=== PATIENT | female | born 1935 | race Caucasian/White ===

== ENCOUNTER 2016-08-02 15:06 | Inpatient (IN) | payer MEDICARE, OTHER ==
[~2016-08-02] VITALS: Ht 157.5 cm; Wt 77.7 kg
[~2016-08-02 15:06] MED LIST: ACTO35TA PO; CARV40 PO; CLON.1 PO; CLOP75 PO; ECOT81TA2 PO; EZET10 PO; FERR324T4 PO; FOLI1TAB PO; IRBE1TAB39 PO; LEVIMER SC; LEVO.05 PO; OXYC-360 PO; RALO1TAB13 PO; ROSU10 PO; TEKT300T PO; TOLT4 PO; VITA400C28 PO
[2016-08-02 15:14] VITALS: BP 158/65; PULSE 57; RESP 16; TEMP 98.2; O2SAT 98
[2016-08-02 15:21] VITALS: O2SAT 98
[2016-08-02 16:02] LABS: AUTOMATED NEUTROPHIL # 5.4 TH/MM3 (1.8-7.7); BASOPHIL % 0.4 % (0.0-2.0); EOSINOPHIL # 0.2 TH/MM3 (0-0.4); HEMO FLAGS DIFF FINAL; LYMPH % 19.1 % (9.0-44.0); LYMPHOCYTE # 1.4 TH/MM3 (1.0-4.8); MEAN CORPUSCULAR HEMOGLOBIN 30.1 PG (27.0-34.0); MEAN CORPUSCULAR HGB CONC 34.2 % (32.0-36.0); MONO % 6.2 % (0.0-8.0); NEUT % 72.3 % (16.0-70.0); PLATELET COUNT 188 TH/MM3 (150-450); RED BLOOD COUNT 3.86 MIL/MM3 (4.00-5.30); RED CELL DISTRIBUTION WIDTH 14.3 % (11.6-17.2); WHITE BLOOD COUNT 7.5 TH/MM3 (4.0-11.0)
[2016-08-02 16:05] LABS: BACTERIA, URINE MANY /hpf; BLOOD, URINE MOD (NEG); GLUCOSE,URINE NEG (NEG); KETONE, URINE NEG (NEG); MUCUS URINE FEW /lpf (OCC); PH, URINE 6.5 (5.0-8.5); SQUAMOUS EPITHELIAL CELL URINE 1 /hpf (0-5); URINE COLOR YELLOW (YELLW/STRAW)
[2016-08-02 16:10] LABS: COMMENT (UR) CATH-CULTURE IND; CULTURE IF INDICATED CATH CULTURE IND; NITRITE,URINE POS (NEG)
--- NOTE | 2016-08-02 16:12 | PD ---
HPI Chief Complaint: Abnormal Results Time Seen by Provider: 16:05 Travel History International Travel<30 days: No Contact w/Intl Traveler<30days: No Traveled to known affect area: No History of Present Illness HPI 81-year-old female that presents to the ED for evaluation of abnormal results. Patient was brought here by ambulance for evaluation of this. Patient apparently went to see Dr. Mack who is a neurologist and saw her for what appears to be acute onset weakness to the lower legs that has progressively gotten worse for the past 6 months. Patient now is unable to walk. She does have a history of diabetes. Patient does have a history of lumbar surgeries years ago with chronic back pain. Apparently Dr. Mack did a workup for her including an MRI of the lumbar spine which only shows some chronic changes and nerve studies that show neuropathy to the lower legs as well as I'll lumbar puncture that show elevated protein. Because of the symptoms of the patient he was concerned the patient could have a type of CIDP ankle requiring IVIG as well as neurosurgery consultation because of fall progressive this disease has been. He is recommended that he she comes here to get evaluated secondary to the elevated protein on the CSF. He does not believe that this is a acute nerve compression that requires immediate surgery. Patient herself denies any other symptom other than the numbness and weakness to the lower legs. Her caregiver she was able to ambulate 6 months ago but now she is not. She lives in a usp. She does state having some incontinence. This appears to be chronic. She denies any other medical problems at this time. No falls or injuries. Takes no blood thinners. Patient was sent here by ambulance by Dr. Mack to get evaluated for the progressively worsening neuropathy. FORMERLY [facility], [facility]–1983 Past Medical History Arthritis: Yes (hands and knees) Blood Disorders: No Cancer: No Cardiovascular Problems: Yes High Cholesterol: Yes Chest Pain: Yes Congestive Heart Failure: Yes Diabetes: Yes Patient Takes Glucophage: No Endocrine: Yes Gastrointestinal Disorders: No Genitourinary: Yes (leaking) Hepatitis: Yes (B) Hypertension: Yes Immune Disorder: No Implanted Vascular Access Dvce: Yes Musculoskeletal: Yes Neurologic: Yes (bells palsy) Psychiatric: No Reproductive: No Respiratory: Yes (pneumonia) Thyroid Disease: Yes Past Surgical History Body Medical Devices: PIN BACK ? Cardiac Surgery: Yes (HEART BY-PASS 2007) Gynecologic Surgery: Yes (hysterectomy 1977) Other Surgery: Yes Social History Alcohol Use: No Tobacco Use: No Substance Use: No Allergies-Medications (Allergen,Severity, Reaction): Coded Allergies: No Known Allergies (Verified , 08/02/16) Reported Meds & Prescriptions Reported Meds & Active Scripts Active Review of Systems Except as stated in HPI: all other systems reviewed are Neg Physical Exam Narrative GENERAL: SKIN: Warm and dry. HEAD: Atraumatic. Normocephalic. EYES: Pupils equal and round. No scleral icterus. No injection or drainage. ENT: No nasal bleeding or discharge. Mucous membranes pink and moist. Tongue is midline. No uvula deviation. NECK: Trachea midline. No JVD. CARDIOVASCULAR: Regular rate and rhythm. RESPIRATORY: No accessory muscle use. Clear to auscultation. Breath sounds equal bilaterally. GASTROINTESTINAL: Abdomen soft, non-tender, nondistended. Hepatic and splenic margins not palpable. MUSCULOSKELETAL: Extremities without clubbing, cyanosis, or edema. No obvious deformities. Patient is very weak on the lower extremities. Cannot move them herself. Strength is 2 out of 5 on the lower legs bilaterally. 2+ pulses bilaterally. Some sensation loss noted. Patient able to move the upper extremities with no deformity or weakness noted. No cervical or thoracic spine tenderness to palpation. Cannot fully assess the lumbar spine secondary to patient's body habitus and weakness the lower legs. NEUROLOGICAL: Awake and alert. No obvious cranial nerve deficits. Motor grossly within normal limits. Five out of 5 muscle strength in the arms and legs. Normal speech. Romberg test negative bilaterally. PSYCHIATRIC: Appropriate mood and affect; insight and judgment normal. Data Data Last Documented VS Vital Signs Date Time Temp Pulse Resp B/P Pulse Ox O2 Delivery O2 Flow Rate FiO2 08/02/16 15:21 98 Room Air 08/02/16 15:14 98.2 57 16 158/65 Orders Electrocardiogram (08/02/16 15:16) Complete Blood Count With Diff (08/02/16 15:16) Comprehensive Metabolic Panel (08/02/16 15:16) Prothrombin Time / Inr (Pt) (08/02/16 15:16) Act Partial Throm Time (Ptt) (08/02/16 15:16) Urinalysis - C+S If Indicated (08/02/16 15:16) Magnesium (Mg) (08/02/16 15:16) Thyroid Stimulating Hormone (08/02/16 15:16) Iv Access Insert/Monitor (08/02/16 15:16) Ecg Monitoring (08/02/16 15:16) Oximetry (08/02/16 15:16) Ct Brain W/O Iv Contrast(Rout) (08/02/16 ) Urine Culture (08/02/16 15:40) Urinary Catheter Insert/Apply (08/02/16 16:13) Ceftriaxone Inj (Rocephin Inj) (08/02/16 16:15) Admit Order (Ed Use Only) (08/02/16 16:49) Place In Observation (08/02/16 ) Vital Signs (Adult) Q4H (08/02/16 16:49) Activity Oob With Assistance (08/02/16 16:49) Diet Heart Healthy (08/02/16 Dinner) Sodium Chlor 0.9% 1000 Ml Inj (Ns 1000 M (08/02/16 16:49) Sodium Chloride 0.9% Flush (Ns Flush) (08/02/16 17:00) Sodium Chloride 0.9% Flush (Ns Flush) (08/02/16 21:00) Acetaminophen (Tylenol) (08/02/16 17:00) Ondansetron Inj (Zofran Inj) (08/02/16 17:00) Docusate Sodium (Colace) (08/02/16 17:00) Magnesium Hydroxide Liq (Milk Of Magnesi (08/02/16 17:00) Temazepam (Restoril) (08/02/16 17:00) Basic Metabolic Panel (Bmp) (08/03/16 06:00) Complete Blood Count With Diff (08/03/16 06:00) Resp Oxygen Leon C Titrat 1-4 L (08/02/16 ) Pt Request For Service (08/02/16 16:49) Ot Request For Service (08/02/16 16:49) Case Management Consult (08/02/16 16:49) Enoxaparin Inj (Lovenox Inj) (08/02/16 17:00) Scd Bilateral/Knee High BETH.BID (08/02/16 16:49) Cain Bilateral/Knee High BETH.QSHIFT (08/02/16 16:49) Ceftriaxone Inj (Rocephin Inj) (08/02/16 17:00) ^ Medication Reconciliation (08/02/16 16:51) Labs Laboratory Tests Test 08/02/16 08/02/16 15:32 15:40 White Blood Count 7.5 TH/MM3 Red Blood Count 3.86 MIL/MM3 Hemoglobin 11.6 GM/DL Hematocrit 34.0 % Mean Corpuscular Volume 88.0 FL Mean Corpuscular Hemoglobin 30.1 PG Mean Corpuscular Hemoglobin 34.2 % Concent Red Cell Distribution Width 14.3 % Platelet Count 188 TH/MM3 Mean Platelet Volume 9.8 FL Neutrophils (%) (Auto) 72.3 % Lymphocytes (%) (Auto) 19.1 % Monocytes (%) (Auto) 6.2 % Eosinophils (%) (Auto) 2.0 % Basophils (%) (Auto) 0.4 % Neutrophils # (Auto) 5.4 TH/MM3 Lymphocytes # (Auto) 1.4 TH/MM3 Monocytes # (Auto) 0.5 TH/MM3 Eosinophils # (Auto) 0.2 TH/MM3 Basophils # (Auto) 0.0 TH/MM3 CBC Comment DIFF FINAL Differential Comment Prothrombin Time 10.4 SEC Prothromb Time International 0.9 RATIO Ratio Activated Partial 30.4 SEC Thromboplast Time Sodium Level 138 MEQ/L Potassium Level 4.8 MEQ/L Chloride Level 104 MEQ/L Carbon Dioxide Level 27.7 MEQ/L Anion Gap 6 MEQ/L Blood Urea Nitrogen 29 MG/DL Creatinine 0.84 MG/DL Estimat Glomerular Filtration 65 ML/MIN Rate Random Glucose 79 MG/DL Calcium Level 9.4 MG/DL Magnesium Level 2.3 MG/DL Total Bilirubin 0.2 MG/DL Aspartate Amino Transf 32 U/L (AST/SGOT) Alanine Aminotransferase 46 U/L (ALT/SGPT) Alkaline Phosphatase 55 U/L Total Protein 6.8 GM/DL Albumin 3.3 GM/DL Thyroid Stimulating Hormone 1.370 uIU/ML 3rd Gen Urine Color YELLOW Urine Turbidity CLOUDY Urine pH 6.5 Urine Specific [place] 1.018 Urine Protein 100 mg/dL Urine Glucose (UA) NEG mg/dL Urine Ketones NEG mg/dL Urine Occult Blood MOD Urine Nitrite POS Urine Bilirubin NEG Urine Urobilinogen LESS THAN 2.0 MG/DL Urine Leukocyte Esterase LARGE Urine RBC 12 /hpf Urine WBC /hpf Urine WBC Clumps MANY Urine Squamous Epithelial 1 /hpf Cells Urine Bacteria MANY /hpf Urine Mucus FEW /lpf Microscopic Urinalysis Comment CATH-CULTURE IND MDM Medical Decision Making Medical Screen Exam Complete: Yes Emergency Medical Condition: Yes Medical Record Reviewed: Yes Interpretation(s) CBC & BMP Diagram 08/02/16 15:32 BMP Diagram 08/02/16 15:32 LFTS WNL UA shows UTI CT head shows normal exam, but ethmoid sinus disease Differential Diagnosis CIDP versus neuropathy versus inability to ambulate versus MS versus stroke versus electrolyte abnormality Narrative Course 81-year-old female that presents to the ED for evaluation of generalized weakness the lower legs. Patient was properly examined and was found to have weakness to the lower legs. Patient already had a workup by her neurologist Dr. Mack who wanted her to come here to get evaluated for the progressive weakness of the lower legs. He wanted admission for neurosurgery and neurology consultation for possible IVG treatment for the CIDP as well as further evaluation of the progressive weakness to the lower legs as he believes patient will not do well with outpatient follow ups at this time secondary to how progressive this weakness has been.. Case was discussed with my attending who recommends lab work and CT of the head to make sure there is no sign of acute disease causing the illness. Labs and imaging showed UTI but otherwise unremarkable examination. Case was discussed with my attending who evaluated the patient and recommends admission to [facility] for further evaluation of the progressive weakness. Case discussed with Dr. Pyle who agrees to admission. Patient was told the plan who agrees. Diagnosis Primary Impression: Leg weakness, bilateral Additional Impressions: CIDP (chronic inflammatory demyelinating polyneuropathy) UTI (urinary tract infection) Qualified Code: N30.00 - Acute cystitis without hematuria Admitting Information Admitting Physician Requests: Observation Doyle Easley Aug 02, 2016 16:12
[2016-08-02] MEDS ORDERED: cefTRIAXone INJ 1,000 MG in SODIUM CHLORIDE 0.9% INJ 100 ML IV ONE (16:15)
[2016-08-02 16:28] LABS: APTT (PATIENT) 30.4 SEC (24.3-30.1); INTERNATIONAL NORMALIZED RATIO 0.9 RATIO; PROTHROMBIN TIME - PATIENT 10.4 SEC (9.8-11.6)
[2016-08-02 16:31] LABS: ALT (GPT) 46 U/L (10-53); ANION GAP 6 MEQ/L (5-15); AST (GOT) 32 U/L (15-37); BICARBONATE 27.7 MEQ/L (21.0-32.0); BLOOD UREA NITROGEN 29 MG/DL (7-18); CHLORIDE 104 MEQ/L (98-107); GLOMERULAR FILTRATION RATE 65 ML/MIN (>89); MAGNESIUM 2.3 MG/DL (1.5-2.5); POTASSIUM 4.8 MEQ/L (3.5-5.1); SODIUM (NA) 138 MEQ/L (136-145)
--- NOTE | 2016-08-02 16:34 | RADRPT ---
EXAM DATE/TIME: 08/02/2016 16:14 [place] COMPARISON: No previous studies available for comparison. INDICATIONS : Patient is experiencing weakness for several months . RADIATION DOSE: 36.58 CTDIvol (mGy) MEDICAL HISTORY : Cardiovascular disease. Congestive heart failure. Hypertension.Diabetes mellitus SURGICAL HISTORY : ENCOUNTER: Initial ACUITY: 3 months PAIN SCALE: 1/10 LOCATION: cranial TECHNIQUE: Multiple contiguous axial images were obtained of the head. Using automated exposure control and adj ustment of the mA and/or kV according to patient size, radiation dose was kept as low as reasonably a chievable to obtain optimal diagnostic quality images. FINDINGS: CEREBRUM: The ventricles are normal for age. No evidence of midline shift, mass lesion, hemorrhage or acute in farction. No extra-axial fluid collections are seen. POSTERIOR FOSSA: The cerebellum and brainstem are intact. The 4th ventricle is midline. The cerebellopontine angle i s unremarkable. EXTRACRANIAL: The visualized portion of the orbits is intact. There is opacification of the left ethmoid air cells. SKULL: The calvaria is intact. No evidence of skull fracture. CONCLUSION: 1. No acute intracranial abnormality. 2. Opacification of the left ethmoid air cells. Darrell Ashley MD on August 02, 2016 at 16:31 Board Certified Radiologist. This report was verified electronically.
[2016-08-02 16:40] LABS: ALKALINE PHOSPHATASE 55 U/L (45-117); TOTAL BILIRUBIN ADULT 0.2 MG/DL (0.2-1.0)
[2016-08-02] MEDS ORDERED: MAGNESIUM HYDROXIDE SUSP 30 ML CUP PO PRN (17:00)
[2016-08-02] MEDS ORDERED: ONDANSETRON HCL 4 MG/2 ML VIAL IVP PRN (17:00)
[2016-08-02] MEDS ORDERED: ROSU10 PO (17:02)
[2016-08-02] MEDS ORDERED: BENZ1CAP8 PO (17:02)
[2016-08-02] MEDS ORDERED: APIDINJ SQ (17:02)
[2016-08-02] MEDS ORDERED: ZETI10TA5 PO (17:02)
[2016-08-02] MEDS ORDERED: LEVO50TA4 PO (17:02)
[2016-08-02] MEDS ORDERED: FERR325T72 PO (17:02)
[2016-08-02] MEDS ORDERED: LISI40TA PO (17:02)
[2016-08-02] MEDS ORDERED: DIOV160T6 PO (17:02)
[2016-08-02] MEDS ORDERED: GABA300C5 PO (17:02)
[2016-08-02] MEDS ORDERED: ALEN35TA24 PO (17:02)
[2016-08-02] MEDS ORDERED: FOLI5CAP PO (17:02)
[2016-08-02] MEDS ORDERED: TRAM-492 (17:02)
[2016-08-02] MEDS ORDERED: DETR4CAP PO (17:02)
[2016-08-02] MEDS ORDERED: SODIUM CHLOR 0.9% 1000 ML INJ 1,000 ML IV SCH (17:30)
[2016-08-02 17:38] VITALS: BP 182/81; PULSE 63; RESP 16; O2SAT 98; O2SAT 99
[2016-08-02] MEDS: DOCUSATE SODIUM 100 MG CAP PO SCH (17:38)
[2016-08-02] MEDS: ENOXAPARIN SODIUM 40 MG/0.4 ML SYRINGE SQ SCH (17:38)
[2016-08-02 19:00] VITALS: BP 181/70; PULSE 72; RESP 16; O2SAT 96
[2016-08-02 20:00] VITALS: BP 174/66; PULSE 70; RESP 16; O2SAT 96
[2016-08-02] MEDS ORDERED: TEMAZEPAM 15 MG CAP PO PRN (21:00)
[2016-08-02] MEDS: SODIUM CHLORIDE 0.9% FLUSH 10 ML FLUSH IV FLUSH SCH (21:00)
--- NOTE | 2016-08-02 23:28 | EKG ---
Date Performed: 08/02/2016 Time Performed: 15:26:34 PTAGE: 81 years EKG: SINUS BRADYCARDIA Non-specific ST/T wave changes PREVIOUS TRACING : 11/02/2007 12.53 Compared to prior tracing no significant change DOCTOR: Gustavo Rios Interpretating Date/Time 08/02/2016 23:27:55
--- NOTE | 2016-08-02 23:51 | HHI.HP ---
[facility] Deana Retana M.D. Admission Diagnosis bilateral leg weakness, CIDP, UTI Diagnoses: (1) Leg weakness, bilateral (2) UTI (urinary tract infection) (3) CIDP (chronic inflammatory demyelinating polyneuropathy) Chief Complaint: progressively worsening lower extremity weakness Travel History International Travel<30 Days: No Contact w/Intl Traveler <30 Da: No Traveled to Known Affected Are: No History of Present Illness Ms. Meyers is an 81 year-old female with a past medical history of diabetes mellitus, congestive heart failure, hyperlipidemia, coronary artery disease status post bypass surgery in 2007, hypothyroidism, and Henrietta palsy who presented to the emergency room on 08/02/2016 after being seen by her neurologist Dr. Mack in [place] for progressively worsening weakness in lower legs over the past 7 months. Patient is currently unable to walk. Per Dr. Mack's documentation (follow up office note dated 08/02/16-copy on chart), lumbar puncture showed elevated protein in the CSF. The patient is seen in the CDU. She is a resident at [facility] in [facility]. She was living on her own until 4 months ago but her weakness became so debilitating she was unable to continue to care for herself. She requires use of a wheelchair for mobility. She reports decreased sensation and movement in bilateral lower extremities - she reports that this has been going on for 4 months although 's progress note indicates symptoms have been present for 7 months. She denies urine or bowel incontinence; also denies fevers, nausea, vomiting, diarrhea, black or red stool, hematuria, and dysuria; she complains of severe lower back pain that shoots down into both legs. She states that she does not know if she has a history of sciatica She denies any history of breathing problems, liver problems, kidney problems, blood clots, seizures, thyroid problems, or cancers. . Review of Systems Except as stated in HPI: all other systems reviewed are Neg Past Family Social History Past Medical History CAD Diabetes mellitus Hypothyroidism Hypertension . Past Surgical History CABG Hysterectomy Back surgery - lumbosacral fusion 1994; kyphoplasty T12-L2 . Reported Medications Reported Meds & Active Scripts Active Reported Zetia (Ezetimibe) 10 Mg Tab 10 Mg PO DAILY Tramadol Hydrochloride (Tramadol HCl) 50 Mg Tab Lisinopril 40 Mg Tab 40 Mg PO DAILY Levothyroxine (Levothyroxine Sodium) 50 Mcg Tab 50 Mcg PO DAILY Gabapentin 300 Mg Cap 300 Mg PO HS Folic Acid 5 Mg Cap 1 Mg PO DAILY Ferrous Gluconate 325 Mg Tab 325 Mg PO DAILY Diovan (Valsartan) 160 Mg Tab 160 Mg PO DAILY Detrol LA (Tolterodine Tartrate) 4 Mg Cap 4 Mg PO DAILY Crestor (Rosuvastatin Calcium) 10 Mg Tab 10 Mg PO DAILY Benzonatate 100 Mg Cap 100 Mg PO TID PRN Apidra Inj (Insulin Glulisine Inj) 1,000 Unit/10 Ml Vial 100 Units SQ Alendronate (Alendronate Sodium) 35 Mg Tab 35 Mg PO Q7D . Allergies: Coded Allergies: No Known Allergies (Verified , 08/02/16) Active Ordered Medications Current Medications Ceftriaxone Sodium 1000 mg/ Sodium Chloride 100 ml @ 200 mls/hr ONCE ONCE IV Last administered on 08/02/16 17:06; Start 08/02/16 at 16:15; Stop 08/02/16 at 16:44; Status DC Sodium Chloride (NS 1000 ml Inj) 1,000 ml @ 80 mls/hr [id number] IV Last administered on 08/02/16 17:38; Start 08/02/16 at 17:30 Sodium Chloride (NS Flush) 2 ml UNSCH PRN IV FLUSH FLUSH AFTER USING IV ACCESS ; Start 08/02/16 at 17:00 Sodium Chloride (NS Flush) 2 ml BID IV FLUSH Last administered on 08/02/16 21: 00; Start 08/02/16 at 21:00 Acetaminophen (Tylenol) 650 mg Q4H PRN PO TEMP > 100.4; Start 08/02/16 at 17:00 Ondansetron HCl (Zofran Inj) 4 mg Q6H PRN IVP NAUSEA OR VOMITING; Start at 17:00 Docusate Sodium (Colace) 100 mg Q12H PO Last administered on 08/02/16 17:38; Start 08/02/16 at 18:00 Magnesium Hydroxide (Milk Of Magnesia Liq) 30 ml Q12H PRN PO CONSTIPATION; Start 08/02/16 at 17:00 Temazepam (Restoril) 15 mg HS PRN PO INSOMNIA; Start 08/02/16 at 21:00 Enoxaparin Sodium 40 mg 40 mg Q24H SQ Last administered on 08/02/16t 17:38; Start 08/02/16 at 18:00 Ceftriaxone Sodium/Sodium Chloride (Rocephin Inj/NS Inj) 100 ml @ 200 mls/hr Q24H IV ; Start 08/03/16 at 17:00 . Family History denies any significant family medical problems denies family history of diabetes . Social History Tobacco: one carton per week; quit 30 years ago Alcohol: denies Illicit drugs: denies . Physical Exam Vital Signs Vital Signs Date Time Temp Pulse Resp B/P Pulse Ox O2 Delivery O2 Flow Rate FiO2 08/02/16 20:00 70 16 174/66 96 Room Air 08/02/16 19:00 72 16 181/70 96 Room Air 08/02/16 17:38 99 21 08/02/16 17:38 63 16 182/81 98 Room Air 08/02/16 15:21 98 Room Air 08/02/16 15:14 98.2 57 16 158/65 98 Physical Exam GENERAL: This is an elderly female patient, appear somewhat grumpy during the time of visit. SKIN: No rashes, ecchymoses or lesions. Cool and dry. HEAD: Atraumatic. Normocephalic. EYES: No scleral icterus. No injection or drainage. ENT: Nose without bleeding, purulent drainage. NECK: Trachea midline. No JVD or lymphadenopathy. CARDIOVASCULAR: Regular rate and rhythm without murmurs, gallops, or rubs. RESPIRATORY: Clear to auscultation. Breath sounds equal bilaterally. No wheezes , rales, or rhonchi. GASTROINTESTINAL: Abdomen soft, non-tender, nondistended. No guarding. MUSCULOSKELETAL: Extremities without clubbing, cyanosis, or edema. No calf tenderness. Bilateral lower extremities produce significant back pain when legs raised passively - patient unable to lift legs independently NEUROLOGICAL: Awake and alert. Motor and sensory grossly within normal limits. Normal speech. . Laboratory Laboratory Tests Test 08/02/16 08/02/16 15:32 15:40 White Blood Count 7.5 Red Blood Count 3.86 Hemoglobin 11.6 Hematocrit 34.0 Mean Corpuscular Volume 88.0 Mean Corpuscular Hemoglobin 30.1 Mean Corpuscular Hemoglobin 34.2 Concent Red Cell Distribution Width 14.3 Platelet Count 188 Mean Platelet Volume 9.8 Neutrophils (%) (Auto) 72.3 Lymphocytes (%) (Auto) 19.1 Monocytes (%) (Auto) 6.2 Eosinophils (%) (Auto) 2.0 Basophils (%) (Auto) 0.4 Neutrophils # (Auto) 5.4 Lymphocytes # (Auto) 1.4 Monocytes # (Auto) 0.5 Eosinophils # (Auto) 0.2 Basophils # (Auto) 0.0 CBC Comment DIFF FINAL Differential Comment Prothrombin Time 10.4 Prothromb Time International 0.9 Ratio Activated Partial 30.4 Thromboplast Time Sodium Level 138 Potassium Level 4.8 Chloride Level 104 Carbon Dioxide Level 27.7 Anion Gap 6 Blood Urea Nitrogen 29 Creatinine 0.84 Estimat Glomerular Filtration 65 Rate Random Glucose 79 Calcium Level 9.4 Magnesium Level 2.3 Total Bilirubin 0.2 Aspartate Amino Transf 32 (AST/SGOT) Alanine Aminotransferase 46 (ALT/SGPT) Alkaline Phosphatase 55 Total Protein 6.8 Albumin 3.3 Thyroid Stimulating Hormone 1.370 3rd Gen Urine Color YELLOW Urine Turbidity CLOUDY Urine pH 6.5 Urine Specific [place] 1.018 Urine Protein 100 Urine Glucose (UA) NEG Urine Ketones NEG Urine Occult Blood MOD Urine Nitrite POS Urine Bilirubin NEG Urine Urobilinogen LESS THAN 2.0 Urine Leukocyte Esterase LARGE Urine RBC 12 Urine WBC Urine WBC Clumps MANY Urine Squamous Epithelial 1 Cells Urine Bacteria MANY Urine Mucus FEW Microscopic Urinalysis Comment CATH-CULTURE IND Date/Time Procedure Status Source Growth 08/02/16 15:40 Urine Culture Received Urine Catheterized Urine Pending Result Diagram: 08/02/16 1532 08/02/16 1532 Imaging Last Impressions Head CT 08/02/16 0000 Signed Impressions: Service Date/Time: Tuesday, August 02, 2016 16:14 - CONCLUSION: 1. No acute intracranial abnormality. 2. Opacification of the left ethmoid air cells. Darrell Ashley MD . Assessment and Plan Problem List: (1) CIDP (chronic inflammatory demyelinating polyneuropathy) ICD Code: G61.81 Status: Acute (2) Leg weakness, bilateral ICD Code: R29.898 Status: Acute (3) UTI (urinary tract infection) ICD Code: N39.0 Status: Acute Assessment and Plan Ms. Meyers is an 81 year-old female who presented to the emergency room on 08/02 after being seen by her neurologist Dr. Mack in [place] for progressively worsening weakness in lower legs over the past 7 months. Patient is currently unable to walk. Progressive bilateral lower extremity weakness with concern for CIDP per patient s neurologist - Per Dr. Mack's documentation (follow up office note dated 08/02/16-copy on chart), lumbar puncture showed elevated protein in the CSF. - consult neurology - may need neurosurgery consultation defer to neurologist UTI - u/a suggestive of UTI with nitrites, blood, WBCs and many bacteria - Ceftriaxone 1 g IV every 24 hours - await urine culture results and adjust treatment if needed Poorly controlled hypertension - likely secondary to pain - Restart home antihypertensive medications - Monitor blood pressure trends and adjust treatments as indicated - provide pain management PRN DVT prophylaxis - Lovenox 40 mg subq q24h Written by Karissa Black, acting as scribe for Dr. Valentine on 08/03/16 at 00:09. This note was transcribed by scribe [Karissa Black]. I, Dr. Albin Valentine personally performed the history, physical exam, and medical decision making; and confirmed the accuracy of the information in the transcribed note. Authenticated by Dr. Albin Valentine on 08/03/16 at 00:09. . Discussed Condition With ER physician, RN, and patient . Problem Qualifiers (1) UTI (urinary tract infection): Qualified Code: N30.00 - Acute cystitis without hematuria Karissa Black Aug 02, 2016 23:51 Albin Valentine MD Aug 03, 2016 08:46
[2016-08-03] MEDS ORDERED: ALENDRONATE 35 MG PO SCH (00:30)
[2016-08-03 03:00] VITALS: BP 178/89; PULSE 78; RESP 18; TEMP 97.4; O2SAT 97
[2016-08-03] MEDS: LEVOTHYROXINE SODIUM 50 MCG TAB PO SCH (06:46)
[2016-08-03] MEDS: DOCUSATE SODIUM 100 MG CAP PO SCH ×2 (06:46→18:28)
[2016-08-03 08:17] LABS: BICARBONATE 25.4 MEQ/L (21.0-32.0); POTASSIUM 4.2 MEQ/L (3.5-5.1)
[2016-08-03 08:50] VITALS: BP 157/62; PULSE 57; RESP 16; TEMP 98.1; O2SAT 100
[2016-08-03] MEDS ORDERED: ATORVASTATIN 20 MG TAB PO SCH (09:00)
[2016-08-03] MEDS: SODIUM CHLORIDE 0.9% FLUSH 10 ML FLUSH IV FLUSH SCH ×2 (09:00→21:00)
[2016-08-03] MEDS: EZETIMIBE 10 MG TAB PO SCH (09:00)
[2016-08-03 10:47] LABS: AUTOMATED NEUTROPHIL # 3.4 TH/MM3 (1.8-7.7); BASOPHIL % 0.6 % (0.0-2.0); EOSINOPHIL # 0.1 TH/MM3 (0-0.4); HEMATOCRIT 31.7 % (35.0-46.0); HEMO FLAGS DIFF FINAL; LYMPH % 25.5 % (9.0-44.0); LYMPHOCYTE # 1.3 TH/MM3 (1.0-4.8); MEAN CELL VOLUME 87.8 FL (80.0-100.0); MEAN CORPUSCULAR HEMOGLOBIN 30.1 PG (27.0-34.0); MEAN CORPUSCULAR HGB CONC 34.3 % (32.0-36.0); MONO % 6.5 % (0.0-8.0); NEUT % 65.4 % (16.0-70.0); PLATELET COUNT 171 TH/MM3 (150-450); RED BLOOD COUNT 3.62 MIL/MM3 (4.00-5.30); RED CELL DISTRIBUTION WIDTH 14.2 % (11.6-17.2); WHITE BLOOD COUNT 5.3 TH/MM3 (4.0-11.0)
--- NOTE | 2016-08-03 10:53 | MB ---
cc: RICK HU DATE OF CONSULTATION: 08/03/2016 HISTORY OF PRESENT ILLNESS A 81-year-old right-handed woman with a history of hypertension, insulin dependent diabetes, hypercholesterolemia, CABG. She was walking until April when suddenly she could not walk anymore. She became weak in her arms and legs numb also and some pain in her hands and the pain that shoots down her low back to her legs. She was seen in [facility] and then sent to rehab and she is in a intermediate currently. There is a note in the chart from Dr. Mack. Dr. Mack had just seen her 08/02/16. He thought she might have CIDP. It was recommended an IVIG. It is unclear what kind of prior workup that she had. Initially she had told me that her symptoms started suddenly in April but then talking to her again here after reading his notes, she now says that it actually came on gradually, that she was getting weaker, went to a cane then a walker and then in April she could not walk anymore. There is a history of low back surgery in 1994. REVIEW OF SYSTEMS She denies any history of atrial fibrillation, Coumadin, stent, renal, hepatic or pulmonary disease, thyroid disease, lupus, ulcer, cancer, seizure, stroke. SOCIAL HISTORY She used to smoke but no longer does. She is not a drinker. Lives by herself. FAMILY HISTORY Negative for cancer, seizure, stroke. PAST MEDICAL HISTORY 1. 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 2. Elevated protein in CSF. Some question if she has had this for 7 months, really she says it started suddenly, she woke up like that. MEDICATION 1. Zetia. 2. Tramadol. 3. Lisinopril. 4. Thyroid medicine. 5. Gabapentin 300 at bedtime. 6. Iron. 7. Diovan. 8. Detrol. 9. Crestor. 10. Benzonatate. 11. Insulin. 12. Alendronate. ALLERGIES NO KNOWN DRUG ALLERGIES. PHYSICAL EXAMINATION VITAL SIGNS: On exam afebrile, 57, 157/62, 16. NECK: There were no carotid bruits. HEART: Regular rhythm. I do not detect a murmur. NEURO: Pupils are equal, visual zepeda are full. Extraocular movements intact without nystagmus. Face is symmetric with normal sensation. Tongue was midline. She had normal strength in bilateral deltoid and biceps but her triceps are very weak at 4-/5. Finger extensors are weak at 3/5. Sales Branch Manager is weak 3+4-/5. She can lift her knees slightly off the bed but otherwise very weak. She can wiggle her feet back and forth but she is very weak there also at 3+4-/5. DTRs left knee jerk is 2+, right is absent. Triceps are 2+ bilaterally. Biceps are absent. Ankle jerks are absent. There is no ankle clonus. Her tone was normal throughout. Toes are downgoing bilaterally. Pinprick is diminished. She has a pin level at about T2 bilaterally on the front of her body. Pinprick is intact in the face. Vibratory sense she cannot feel, just a little bit in one of her hands. Proprioception absent at the toes. LABORATORY DATA CBC is normal. UA positive nitrites, positive white blood cell clumps. Coags are normal. Basic metabolic profile essentially normal. LFTs are normal. Thyroid is normal. CBC is normal. IMPRESSION She motor-zepeda has about a C6 level bilaterally and sensory-zepeda about T2. With the intact reflexes, I think CIDP is unlikely and a spinal cord problem to me seems more likely. She must have had a workup down at [facility] and will try to obtain that. I would at this point check an MRI of her cervical and thoracic spine and check some additional blood work on her, and get these records from [facility]. Her UTI is being treated. Have PT work with her. MD AWA Villarreal/SUNDAR /9:45 AM /10:09 AM
[2016-08-03 11:15] VITALS: BP 205/60; PULSE 67; RESP 18; TEMP 98.1; O2SAT 98
[2016-08-03] MEDS ORDERED: GADODIAMIDE PF 287 MG/ML 5 ML VIAL (for RAD MRI) IV ONE (12:08)
[2016-08-03] MEDS: TOLTERODINE TARTRATE 4 MG CAP LA PO SCH (12:34)
[2016-08-03] MEDS: VALSARTAN 160 MG TAB PO SCH (12:34)
[2016-08-03] MEDS: FERROUS SULFATE 325 MG (65 MG ELEMENTAL IRON) TAB PO SCH (12:34)
[2016-08-03] MEDS: LISINOPRIL 20 MG TAB PO SCH (12:34)
[2016-08-03 12:39] LABS: CREATINE KINASE 106 U/L (26-192)
[2016-08-03] MEDS: traMADol HCL 50 MG TAB PO PRN ×2 (12:43→22:42)
[2016-08-03 14:11] LABS: RAPID PLASMA REAGIN SCREEN NON-REACTIVE (NON-REACTVE)
--- NOTE | 2016-08-03 14:21 | RADRPT ---
EXAM DATE/TIME: 08/03/2016 11:28 [facility] COMPARISON: No previous studies available for comparison. EXTERNAL COMPARISON : [facility], MRI T spine, March 07, 2011 INDICATIONS : Inability to ambulate. Weakness. CONTRAST: 14 cc Omniscan (gadodiamide) IV MEDICAL HISTORY : Diabetes mellitus type 2. Hypertension. SURGICAL HISTORY : CABG Fusion, lumbar. ENCOUNTER: Subsequent ACUITY: 4-6 months PAIN SCORE: 4/10 LOCATION: back. TECHNIQUE: Multiplanar multisequence MRI of the thoracic spine was performed. FINDINGS: VERTEBRA: Normal vertebral body height. Homogeneous marrow signal. ALIGNMENT: Normal. CORD: Normal position and configuration. POST CONTRAST: No abnormal areas of contrast enhancement seen. T1-T2: Normal. T2-T3: The thecal sac has a normal diameter. No evidence of disc bulge or protrusion. T3-T4: The thecal sac has a normal diameter. No evidence of disc bulge or protrusion. T4-T5: Mild interspace ridging is present without significant spinal stenosis. T5-T6: The thecal sac has a normal diameter. No evidence of disc bulge or protrusion. T6-T7: The thecal sac has a normal diameter. No evidence of disc bulge or protrusion. T7-T8: The thecal sac has a normal diameter. No evidence of disc bulge or protrusion. T8-T9: The thecal sac has a normal diameter. No evidence of disc bulge or protrusion. T9-T10: The thecal sac has a normal diameter. No evidence of disc bulge or protrusion. T10-T11: Moderate spinal stenosis is evident. Minimal signal is present in the cord at this level.. T11-T12: The thecal sac has a normal diameter. No evidence of disc bulge or protrusion. T12-L1: The thecal sac has a normal diameter. No evidence of disc bulge or protrusion. CONCLUSION: Moderate spinal stenosis at the T10-T11 level. There is minimal anterior wedging of the T12 vertebra l body old by MRI. Asad Rajan MD FACR on August 03, 2016 at 14:16 Board Certified Radiologist. This report was verified electronically.
--- NOTE | 2016-08-03 14:38 | RADRPT ---
EXAM DATE/TIME: 08/03/2016 11:28 [facility] COMPARISON: No previous studies available for comparison. INDICATIONS : Inability to ambulate. Weakness. CONTRAST: 14 cc Omniscan (gadodiamide) IV MEDICAL HISTORY : Hypertension. Diabetes mellitus type 2. SURGICAL HISTORY : CABG Fusion, lumbar. ENCOUNTER: Subsequent ACUITY: 4-6 months PAIN SCORE: 3/10 LOCATION: neck. TECHNIQUE: Multiplanar, multisequence MRI examination of the cervical spine was performed. FINDINGS: There is straightening of the cervical lordosis without spondylolisthesis and with preservation of ve rtebral body height. No abnormal signal within the marrow of the vertebral bodies are in the interve rtebral discs. The spinous processes are intact the visualized posterior fossa structures are intact . There is severe spinal stenosis at the C4-5 level and moderately severe spinal stenosis at C5-6 and C 6-7. There is abnormal signal within the compressed and narrowed cervical cord at the C4-5 level derik racterized by T2 prolongation and with gadolinium enhancement. At C6-7, there is T2 prolongation but no significant enhancement.. C2-C3: There is a central opacity the sagittal protrusion of the disc which causes indentation on the thecal sac but does not cause cord compression. No lateral extension. The protrusion measures 4 mm in AP dimension. C3-C4: Broad-based bulging of the disc indents the thecal sac and causes loss of CHF ventral to the cervical cord. No evidence cord compression. There is mild narrowing of the bony neural foramina bilaterall y. C4-C5: There is severe spinal stenosis and severe compression upon the cervical cord. The AP dimension of t he cord is narrowed to 2 mm. There is T2 prolongation within the substance of the cord at its narrow est point and on the sagittal postcontrast images, there is evidence of enhancement in the posterior columns of the cervical cord. The spinal stenosis is due to a combination of central protrusion of t he disc measuring 4 mm and a bony excrescence protruding from the junction of the left lamina and spi nous process which measures 5 mm. There is also moderate bilateral bony neural foraminal stenosis. C5-C6: There is broad-based protrusion of the disc central and left paracentral which measures 3 mm. This c auses some mild flattening of the ventral contour of the cervical cord but no definite compression of the cord. There is some diffuse mild T2 prolongation throughout the substance of the cord at this l evel. This protrusion does extend into the neural foramen on the left side and causes significant na rrowing and neural impingement. C6-C7: Severe spinal stenosis due to a combination of broad-based protrusion of the disc and a focal bony ex crescence protruding from the junction of the left lamina and spinous process. There is asymmetric n arrowing of the cervical cord, greater on the left side than on the right. The cervical cord is narr owed to 3 mm on the left side. There is also extension of the disc protrusion to neural foramen on t he left side. Moderate renal foraminal stenosis is present on the right. C7-T1: The thecal sac has a normal configuration. There is no evidence of disc herniation or spinal canal s tenosis. The neural foramina are patent bilaterally. CONCLUSION: Multilevel cord compression at the C4-5 and C6-7 levels due to a combination of posterior element bon y hypertrophy and disc protrusions. The cervical cord is narrowed to 2 mm at C4-5 and to 3 mm at C6- 7. There is abnormal signal with in the compressed cord at both levels characterized by T2 prolongat ion and, at the C4-5 level, enhancement in the posterior column of the cord. There is also less severe disc disease at other levels in the cervical spine as described above. Juan Beltre MD on August 03, 2016 at 14:21 Board Certified Radiologist. This report was verified electronically.
[2016-08-03 15:36] VITALS: BP 178/47; PULSE 56; RESP 16; TEMP 97.7; O2SAT 99
--- NOTE | 2016-08-03 16:54 | PD.CONS ---
History of Present Illness Service Neurosurgery Consult Requested By Medicine service Neurology service Reason for Consult Cervical myelopathy Primary Care Physician Deana Retana M.D. Diagnoses: History of Present Illness 81-year-old female with history of previous low back surgery in 1994 for treatment of low back and lower extremity pain symptoms. She initially did very well following surgery for many years. Approximately 7 months ago she developed onset of progressive gait difficulty, severe enough to require her to start using a walker. By approximate 3-4 months ago she continued to experience further progressive gait difficulty and started falling even despite the walker, as well as onset of numbness and weakness in her hands with loss of upper extremity coordination. At that time she had to start using a wheelchair to mobilize. She was seen for further medical evaluation and indicates no further testing was done. She subsequently was seen at [facility] approximately 3 months ago and was admitted for 3 days. She is uncertain whether an MRI was done. She was subsequently discharged to inpatient rehabilitation at [facility] where she has remained for the past 3 months. She has had recent outpatient evaluation with neurology. She indicates that follow-up visit with her primary care physician recently prompted a visit to the emergency room yesterday. Review of Systems Constitutional: DENIES: Fever, Change in appetite Endocrine: DENIES: Heat/cold intolerance Eyes: DENIES: Blurred vision, Diplopia Ears, nose, mouth, throat: DENIES: Tinnitus, Hearing loss, Vertigo Respiratory: DENIES: Cough, Wheezing Cardiovascular: DENIES: Chest pain, Palpitations Gastrointestinal: DENIES: Abdominal pain, Constipation, Nausea, Vomiting Musculoskeletal: COMPLAINS OF: Joint pain, Muscle aches, Stiffness, Back pain, DENIES: Joint Swelling, Neck pain Hematologic/lymphatic: DENIES: Bruising Neurologic: COMPLAINS OF: Abnormal gait, Localized weakness, Paresthesias, Poor Balance, DENIES: Headache, Tremor Psychiatric: DENIES: Anxiety, Confusion, Depression Past Family Social History Allergies: Coded Allergies: No Known Allergies (Verified , 08/02/16) Past Medical History Positive coronary artery disease, hypertension, hypercholesterolemia, diabetes. States recent diagnosis UTI Past Surgical History CABG approximately 2007 Lumbar M ectomy 1994 Hysterectomy Right carotid endarterectomy Reported Medications Reported Meds & Active Scripts Active Reported Zetia (Ezetimibe) 10 Mg Tab 10 Mg PO DAILY Tramadol Hydrochloride (Tramadol HCl) 50 Mg Tab Lisinopril 40 Mg Tab 40 Mg PO DAILY Levothyroxine (Levothyroxine Sodium) 50 Mcg Tab 50 Mcg PO DAILY Gabapentin 300 Mg Cap 300 Mg PO HS Folic Acid 5 Mg Cap 1 Mg PO DAILY Ferrous Gluconate 325 Mg Tab 325 Mg PO DAILY Diovan (Valsartan) 160 Mg Tab 160 Mg PO DAILY Detrol LA (Tolterodine Tartrate) 4 Mg Cap 4 Mg PO DAILY Crestor (Rosuvastatin Calcium) 10 Mg Tab 10 Mg PO DAILY Benzonatate 100 Mg Cap 100 Mg PO TID PRN Apidra Inj (Insulin Glulisine Inj) 1,000 Unit/10 Ml Vial 100 Units SQ Alendronate (Alendronate Sodium) 35 Mg Tab 35 Mg PO Q7D Family History Negative cardiac disease diabetes neurologic disorders Social History Stop smoking cigarettes 30 years ago No alcohol She states she has no immediate family in the area Physical Exam Vital Signs Vital Signs Date Time Temp Pulse Resp B/P Pulse Ox O2 Delivery O2 Flow Rate FiO2 08/03/16 15:36 97.7 56 16 178/47 99 08/03/16 11:15 98.1 67 18 205/60 98 08/03/16 08:50 98.1 57 16 157/62 100 08/03/16 03:04 21 08/03/16 03:00 97.4 78 18 178/89 97 08/02/16 20:00 70 16 174/66 96 Room Air 08/02/16 19:00 72 16 181/70 96 Room Air 08/02/16 17:38 99 21 08/02/16 17:38 63 16 182/81 98 Room Air Physical Exam GENERAL: This is a well-nourished, well-developed patient, in no apparent distress. SKIN: No rashes, ecchymoses or lesions. Cool and dry. HEAD: Atraumatic. Normocephalic. No temporal or scalp tenderness. EYES: Sclerae are clear and nonicteric ENT: Edentulous. No lesions in the oropharynx. NECK: Trachea midline. No JVD or lymphadenopathy. Supple, nontender, no meningeal signs. CARDIOVASCULAR: Regular rate and rhythm without murmurs, gallops, or rubs. RESPIRATORY: Clear to auscultation. Breath sounds equal bilaterally. No wheezes , rales, or rhonchi. GASTROINTESTINAL: Abdomen soft, non-tender, nondistended. No hepato-splenomegaly , or palpable masses. No guarding. MUSCULOSKELETAL: Extremities without clubbing, cyanosis, or edema. No joint tenderness, effusion, or significant edema noted. No calf tenderness. Dorsalis pedis 2+ bilateral NEUROLOGICAL: Awake and alert Oriented X 3 Speech is clear Conversant and appropriate Follow simple commands well Answers questions appropriately Reasonable judgment and insight Recent and remote memory are intact No evidence of anxiety or depression Pupils are equal and reactive to accommodation. Extra-ocular movements, visual zepeda to confrontation, facial sensorimotor, tongue, palate, sternocleidomastoid testing, hearing to finger rub testing, and bilateral shoulder shrug are all intact. Sensation is moderately diminished to light touch in the right and left hand as well as somewhat diffuse in the distal greater than proximal left greater than right lower extremity. She has near total loss of sensation in the left foot and ankle to light touch Strength on 0-5 scale as follows: Deltoids 4+, biceps 4, triceps 3+, hand intrinsics 2/5 Iliopsoas, quadriceps, hamstrings 2/5, gastrocsoleus 2/5 left, 3/5 right, tibialis anterior 2/5 bilateral Ciarra's markedly positive bilaterally No ankle clonus Plantar responses markedly positive bilateral Fine motor movements significantly impaired in the bilateral upper extremities Laboratory Laboratory Tests Test 08/03/16 08/03/16 08/03/16 06:56 10:26 11:05 Sodium Level 140 Potassium Level 4.2 Chloride Level 107 Carbon Dioxide Level 25.4 Anion Gap 8 Blood Urea Nitrogen 24 Creatinine 0.66 Estimat Glomerular Filtration 86 Rate Random Glucose 128 Calcium Level 9.2 White Blood Count 5.3 Red Blood Count 3.62 Hemoglobin 10.9 Hematocrit 31.7 Mean Corpuscular Volume 87.8 Mean Corpuscular Hemoglobin 30.1 Mean Corpuscular Hemoglobin 34.3 Concent Red Cell Distribution Width 14.2 Platelet Count 171 Mean Platelet Volume 10.0 Neutrophils (%) (Auto) 65.4 Lymphocytes (%) (Auto) 25.5 Monocytes (%) (Auto) 6.5 Eosinophils (%) (Auto) 2.0 Basophils (%) (Auto) 0.6 Neutrophils # (Auto) 3.4 Lymphocytes # (Auto) 1.3 Monocytes # (Auto) 0.3 Eosinophils # (Auto) 0.1 Basophils # (Auto) 0.0 CBC Comment DIFF FINAL Differential Comment Erythrocyte Sedimentation Rate 47 Total Creatine Kinase 106 Vitamin B12 Level 1103 Rapid Plasma Reagin NON-REACTIVE Date/Time Procedure Status Source Growth 08/02/16 15:40 Urine Culture - Preliminary Resulted Urine Catheterized Urine Gram Negative Vinod Result Diagram: 08/03/16 1026 08/03/16 0656 Imaging 08/03/16 MRI cervical and thoracic spine images reviewed by the undersigned. Agree with findings as noted below. Thoracic Spine MRI 08/03/16 0951 Signed Impressions: Service Date/Time: Wednesday, August 03, 2016 11:28 - CONCLUSION: Moderate spinal stenosis at the T10-T11 level. There is minimal anterior wedging of the T12 vertebral body old by MRI. Asad Rajan MD FACR Cervical Spine MRI 08/03/1651 Signed Impressions: Service Date/Time: Wednesday, August 03, 2016 11:28 - CONCLUSION: Multilevel cord compression at the C4-5 and C6-7 levels due to a combination of posterior element bony hypertrophy and disc protrusions. The cervical cord is narrowed to 2 mm at C4-5 and to 3 mm at C6-7. There is abnormal signal with in the compressed cord at both levels characterized by T2 prolongation and, at the C4- 5 level, enhancement in the posterior column of the cord. There is also less severe disc disease at other levels in the cervical spine as described above. Juan Beltre MD Head CT 08/02/16 0000 Signed Impressions: Service Date/Time: Tuesday, August 02, 2016 16:14 - CONCLUSION: 1. No acute intracranial abnormality. 2. Opacification of the left ethmoid air cells. Darrell Ashley MD Assessment and Plan Assessment and Plan Impression: 1. Severe cervical stenosis 2. Severe cervical myelopathy 3. Hypertension 4. Diabetes 5. History of coronary artery disease 6. Probable UTI Recommendations Reviewed findings with patient Discussed with neurology Discussed with medicine service Continue physical therapy Prognosis with surgical intervention may be relatively poor at this point, however without surgical decompression, she will likely continue to deteriorate with progressive quadriparesis. Options of observation and conservative treatment versus surgical intervention have been fully discussed along with prognosis and pros and cons of each. She appears to understand the above and wishes to proceed with surgical intervention. She will likely require an anterior and posterior staged approach given the significant anterior and posterior canal compromise in the mid cervical region. She will need further assessment and treatment for probable UTI, possible adjustment of antihypertensive medications prior to surgical intervention, given the relatively extensive planned surgical procedure. Continue Lovenox for DVT prophylaxis at present. Discontinue statin medications in anticipation of surgery. Sav Eddy MD Aug 03, 2016 16:54
[2016-08-03] MEDS ORDERED: GLUCAGON 1 MG/ML VIAL OTHER PRN (17:00)
[2016-08-03] MEDS ORDERED: DEXTROSE 50% IN WATER 50 ML VIAL(D50) IV PUSH PRN (17:00)
[2016-08-03] MEDS: ENOXAPARIN SODIUM 40 MG/0.4 ML SYRINGE SQ SCH (18:28)
[2016-08-03] MEDS: cefTRIAXone INJ 1,000 MG in SODIUM CHLORIDE 0.9% INJ 100 ML IV SCH (18:28)
--- NOTE | 2016-08-03 18:40 | HHI.PR ---
Subjective Remarks Follow up inability to ambulate. Patient states she has not been able to walk for 4 months. Patient seen and examined. No other complaints. States the [place] is controlling her pain. Objective Vitals Vital Signs Date Time Temp Pulse Resp B/P Pulse Ox O2 Delivery O2 Flow Rate FiO2 08/03/16 15:36 97.7 56 16 178/47 99 08/03/16 11:15 98.1 67 18 205/60 98 08/03/16 08:50 98.1 57 16 157/62 100 08/03/16 03:04 21 08/03/16 03:00 97.4 78 18 178/89 97 08/02/16 20:00 70 16 174/66 96 Room Air 08/02/16 19:00 72 16 181/70 96 Room Air I/O 08/02/16 08/02/16 08/02/16 08/03/16 08/03/16 08/03/16 07:00 15:00 23:00 07:00 15:00 23:00 Intake Total 200 ml Output Total 1050 ml 1000 ml Balance -850 ml -1000 ml Intake Oral 200 ml Output Urine Total 1050 ml 1000 ml Result Diagram: 08/03/16 1026 08/03/16 0656 Imaging Last Impressions Thoracic Spine MRI 08/03/1651 Signed Impressions: Service Date/Time: Wednesday, August 03, 2016 11:28 - CONCLUSION: Moderate spinal stenosis at the T10-T11 level. There is minimal anterior wedging of the T12 vertebral body old by MRI. Asad Rajan MD FACR Cervical Spine MRI 08/03/1651 Signed Impressions: Service Date/Time: Wednesday, August 03, 2016 11:28 - CONCLUSION: Multilevel cord compression at the C4-5 and C6-7 levels due to a combination of posterior element bony hypertrophy and disc protrusions. The cervical cord is narrowed to 2 mm at C4-5 and to 3 mm at C6-7. There is abnormal signal with in the compressed cord at both levels characterized by T2 prolongation and, at the C4- 5 level, enhancement in the posterior column of the cord. There is also less severe disc disease at other levels in the cervical spine as described above. Juan Beltre MD Head CT 08/02/16 0000 Signed Impressions: Service Date/Time: Tuesday, August 02, 2016 16:14 - CONCLUSION: 1. No acute intracranial abnormality. 2. Opacification of the left ethmoid air cells. Darrell Ashley MD Objective Remarks GENERAL: This is an elderly female patient, appear somewhat grumpy during the time of visit. SKIN: No rashes, ecchymoses or lesions. Cool and dry. HEAD: Atraumatic. Normocephalic. EYES: No scleral icterus. No injection or drainage. ENT: Nose without bleeding, purulent drainage. NECK: Trachea midline. No JVD or lymphadenopathy. CARDIOVASCULAR: Regular rate and rhythm without murmurs, gallops, or rubs. RESPIRATORY: Clear to auscultation. Breath sounds equal bilaterally. No wheezes , rales, or rhonchi. GASTROINTESTINAL: Abdomen soft, non-tender, nondistended. No guarding. MUSCULOSKELETAL: Extremities without clubbing, cyanosis, or edema. No calf tenderness. NEUROLOGICAL: Awake and alert. Motor and sensory grossly within normal limits. Normal speech. Medications and IVs Current Medications Medications (Trade) Dose Ordered Sig/Jin Route Start Time Stop Time Status Last Admin (NS Flush) 2 ml UNSCH PRN IV FLUSH 08/02/16 17:00 (NS Flush) 2 ml BID IV FLUSH 08/02/16 21:00 08/03/16 09:00 (Tylenol) 650 mg Q4H PRN PO 08/02/16 17:00 (Zofran Inj) 4 mg Q6H PRN IVP 08/02/16 17:00 (Colace) 100 mg Q12H PO 08/02/16 18:00 08/03/16 18:28 (Milk Of Magnesia Liq) 30 ml Q12H PRN PO 08/02/16 17:00 (Restoril) 15 mg HS PRN PO 08/02/16 21:00 Enoxaparin Sodium 40 mg 40 mg Q24H SQ 08/02/16 18:00 08/03/16 18:28 (Rocephin Inj/NS Inj) 100 ml @ 200 mls/hr Q24H IV 08/03/16 17:00 08/03/16 18:28 (Tessalon) 100 mg TID PRN PO 08/03/16 00:30 (Zetia) 10 mg DAILY PO 08/03/16 09:00 08/03/16 09:00 (Neurontin) 300 mg HS PO 08/03/16 21:00 (Synthroid) 50 mcg DAILY@07 PO 08/03/16 07:00 08/03/16 06:46 (Detrol La) 4 mg DAILY PO 08/03/16 09:00 08/03/16 12:34 (Diovan) 160 mg DAILY PO 08/03/16 09:00 08/03/16 12:34 (Ferrous Sulfate) 325 mg DAILY PO 08/03/16 09:00 08/03/16 12:34 (Prinivil) 40 mg DAILY PO 08/03/16 09:00 08/03/16 12:34 (Lipitor) 20 mg DAILY PO 08/03/16 09:00 08/03/16 12:34 (Ultram) 50 mg Q8H PRN PO 08/03/16 00:45 08/03/16 12:43 (D50w (Vial) Inj) 25 ml UNSCH PRN IV PUSH 08/03/16 17:00 (Glucagon Inj) 1 mg UNSCH PRN OTHER 08/03/16 17:00 A/P Problem List: (1) CIDP (chronic inflammatory demyelinating polyneuropathy) ICD Code: G61.81 Status: Acute (2) Leg weakness, bilateral ICD Code: R29.898 Status: Acute (3) UTI (urinary tract infection) ICD Code: N39.0 Status: Acute Assessment and Plan Ms. Meyers is an 81 year-old female who presented to the emergency room on 08/02 after being seen by her neurologist Dr. Mack in [place] for progressively worsening weakness in lower legs over the past 7 months. Patient is currently unable to walk. Progressive bilateral lower extremity weakness with concern for CIDP per patient s neurologist - Per Dr. Mack's documentation (follow up office note dated 08/02/16-copy on chart), lumbar puncture showed elevated protein in the CSF. - consult neurology, Dr. Che ordered MRI, MRI showed Multilevel cord compression due to spinal stenosis and disk bulging -Consult Dr. Eddy, discussed case with him -Will admit to inpatient due to abnormal MRI and possible surgery UTI - u/a suggestive of UTI with nitrites, blood, WBCs and many bacteria - Ceftriaxone 1 g IV every 24 hours - await urine culture results and adjust treatment if needed Poorly controlled hypertension - likely secondary to pain - Restart home antihypertensive medications - Monitor blood pressure trends and adjust treatments as indicated - provide pain management PRN -Accu checks with SSI DVT prophylaxis - Lovenox 40 mg subq q24h Written by LORETO Reed acting as scribe for Dr. Cash on 08/03/16 at 18: 43 Attending Statement This note was transcribed by scribe. I, Dr. Lesia Cash personally performed the history, physical exam, and medical decision making; and confirmed the accuracy of the information in the transcribed note. Problem Qualifiers (1) UTI (urinary tract infection): Qualified Code: N30.00 - Acute cystitis without hematuria Michelle Singh Aug 03, 2016 18:40 Lesia Cash MD August 16, 2016 10:54
[2016-08-03 20:33] VITALS: BP 194/78; PULSE 55; RESP 20; TEMP 97.2; O2SAT 98
[2016-08-03] MEDS: GABAPENTIN 300 MG CAP PO SCH (22:42)
[2016-08-03] MEDS: INSULIN ASPART SUPPLEMENTAL SCALE SQ SCH (22:43)
[2016-08-04] VITALS (7 sets, daily range): BP systolic 142–212; BP diastolic 62–81; PULSE 56–67; RESP 14–20; TEMP 96.3–98.3; O2SAT 96–100
[2016-08-04] MEDS: DOCUSATE SODIUM 100 MG CAP PO SCH ×2 (06:32→18:06)
[2016-08-04] MEDS: LEVOTHYROXINE SODIUM 50 MCG TAB PO SCH (06:32)
[2016-08-04] MEDS: traMADol HCL 50 MG TAB PO PRN ×2 (06:33→21:50)
[2016-08-04] MEDS: INSULIN ASPART SUPPLEMENTAL SCALE SQ SCH ×4 (06:33→21:50)
--- NOTE | 2016-08-04 08:26 | HHI.PR ---
Subjective Remarks Follow-up for cervical stenosis and myelopathy. The patient continues to have profound lower extremity weakness as well as weakness of the upper extremities. She related to proceed with the surgery. She states her PCP has her on 4 different blood pressure medications, will have her friend bring her medicines in to confirm med rec. She states that for the past few weeks she's been having increased urinary frequency, but denies any pain or burning with urination. Objective Vitals Vital Signs Date Time Temp Pulse Resp B/P Pulse Ox O2 Delivery O2 Flow Rate FiO2 08/04/16 07:27 97.8 56 16 168/63 99 08/04/16 04:00 97.6 67 18 142/67 97 08/04/16 03:05 21 08/04/16 00:00 97.6 59 20 178/71 96 08/03/16 20:33 97.2 55 20 194/78 98 08/03/16 15:36 97.7 56 16 178/47 99 08/03/16 11:15 98.1 67 18 205/60 98 08/03/16 08:50 98.1 57 16 157/62 100 Result Diagram: 08/03/16 1026 08/03/16 0656 Imaging Last Impressions Thoracic Spine MRI 08/03/16 0951 Signed Impressions: Service Date/Time: Wednesday, August 03, 2016 11:28 - CONCLUSION: Moderate spinal stenosis at the T10-T11 level. There is minimal anterior wedging of the T12 vertebral body old by MRI. Asad Rajan MD FACR Cervical Spine MRI 08/03/16 0951 Signed Impressions: Service Date/Time: Wednesday, August 03, 2016 11:28 - CONCLUSION: Multilevel cord compression at the C4-5 and C6-7 levels due to a combination of posterior element bony hypertrophy and disc protrusions. The cervical cord is narrowed to 2 mm at C4-5 and to 3 mm at C6-7. There is abnormal signal with in the compressed cord at both levels characterized by T2 prolongation and, at the C4- 5 level, enhancement in the posterior column of the cord. There is also less severe disc disease at other levels in the cervical spine as described above. Juan Beltre MD Head CT 08/02/16 0000 Signed Impressions: Service Date/Time: Tuesday, August 02, 2016 16:14 - CONCLUSION: 1. No acute intracranial abnormality. 2. Opacification of the left ethmoid air cells. Darrell Ashley MD Objective Remarks GENERAL: Well-developed well-nourished. In no acute distress. SKIN: Warm and dry. No lesions noted. HEENT: Normocephalic. Pupils equal and round. Mucous membranes pink and moist. CARDIOVASCULAR: Regular rate and rhythm. No murmur appreciated. RESPIRATORY: No accessory muscle use. Clear to auscultation. Breath sounds equal bilaterally. GASTROINTESTINAL: Abdomen soft, non-tender, nondistended. Bowel sounds x4. MUSCULOSKELETAL: No obvious deformities. No clubbing or cyanosis. No edema. NEUROLOGICAL: Awake and alert. Profound lower extremity weakness. Weakness with triceps extension. Normal speech. PSYCHIATRIC: Appropriate mood and affect; insight and judgment normal. A/P Problem List: (1) CIDP (chronic inflammatory demyelinating polyneuropathy) ICD Code: G61.81 Status: Acute (2) Leg weakness, bilateral ICD Code: R29.898 Status: Acute (3) UTI (urinary tract infection) ICD Code: N39.0 Status: Acute (4) HTN (hypertension) ICD Code: I10 Status: Acute Assessment and Plan Ms. Meyers is an 81 year-old female who presented to the emergency room on 08/02 after being seen by her neurologist Dr. Mack in [place] for progressively worsening weakness in lower legs over the past 7 months. Patient is currently unable to walk. Progressive bilateral lower extremity weakness with concern for CIDP per patient s neurologist - Per Dr. Mack's documentation (follow up office note dated 08/02/16-copy on chart), lumbar puncture showed elevated protein in the CSF. - consulted neurology, Dr. Che ordered MRI, MRI showed severe multilevel cord compression due to spinal stenosis and disk bulging - Consulted Dr. Eddy, planning for operative intervention - Discussed with Dr. Che, consider steroids pending surgery UTI, has been having urinary frequency Unit evidence of infection. Preliminary urine culture gram-negative rods. - Ceftriaxone 1 g IV every 24 hours, pending final culture and sensitivity Poorly controlled hypertension - likely secondary to pain - Continued home lisinopril and valsartan - Reconcile home BP meds - Monitor blood pressure trends and adjust treatments as indicated - provide pain management PRN - Start amlodipine Diabetes mellitus -Accu checks with SSI DVT prophylaxis - Lovenox 40 mg subq q24h Problem Qualifiers (1) UTI (urinary tract infection): Qualified Code: N30.00 - Acute cystitis without hematuria (2) HTN (hypertension): Qualified Code: I10 - Essential hypertension Kory Montemayor Aug 04, 2016 08:26
--- NOTE | 2016-08-04 08:33 | HHI.PR ---
Objective Vital Signs Date Time Temp Pulse Resp B/P Pulse Ox O2 Delivery O2 Flow Rate FiO2 08/04/16 07:27 97.8 56 16 168/63 99 08/04/16 04:00 97.6 67 18 142/67 97 08/04/16 03:05 21 08/04/16 00:00 97.6 59 20 178/71 96 08/03/16 20:33 97.2 55 20 194/78 98 08/03/16 15:36 97.7 56 16 178/47 99 08/03/16 11:15 98.1 67 18 205/60 98 08/03/16 08:50 98.1 57 16 157/62 100 Result Diagram: 08/03/16 1026 08/03/16 0656 Objective Remarks no change good bicep and weak below that Assessment and Plan Assessment and Plan imp cervical myelopathy cornelius on case for or uti and bp control by med team T cord mass effect on that also defer to Sriram Feliciano MD Aug 04, 2016 08:33
[2016-08-04] MEDS: SODIUM CHLORIDE 0.9% FLUSH 10 ML FLUSH IV FLUSH SCH ×2 (08:50→21:50)
[2016-08-04] MEDS: LISINOPRIL 20 MG TAB PO SCH (08:50)
[2016-08-04] MEDS: FERROUS SULFATE 325 MG (65 MG ELEMENTAL IRON) TAB PO SCH (08:50)
[2016-08-04] MEDS: TOLTERODINE TARTRATE 4 MG CAP LA PO SCH (08:50)
[2016-08-04] MEDS: EZETIMIBE 10 MG TAB PO SCH (08:50)
[2016-08-04] MEDS: VALSARTAN 160 MG TAB PO SCH (08:50)
[2016-08-04] MEDS ORDERED: amLODIPine BESYLATE 5 MG TAB PO SCH (09:00)
[2016-08-04] MEDS ORDERED: FERR325T PO (10:40)
[2016-08-04] MEDS ORDERED: CARV40 PO ×2 (10:43→10:44)
[2016-08-04] MEDS ORDERED: TRAZ50TA12 PO (10:44)
--- NOTE | 2016-08-04 17:57 | HHI.NSPN ---
(NitishJeff) Note Status Status: Progress Note (Jeff TalbertNegrito DANGELO) Interval History Interval History 08/03: 81-year-old female with history of previous low back surgery in 1994 for treatment of low back and lower extremity pain symptoms. She initially did very well following surgery for many years. Approximately 7 months ago she developed onset of progressive gait difficulty, severe enough to require her to start using a walker. By approximate 3-4 months ago she continued to experience further progressive gait difficulty and started falling even despite the walker, as well as onset of numbness and weakness in her hands with loss of upper extremity coordination. At that time she had to start using a wheelchair to mobilize. She was seen for further medical evaluation and indicates no further testing was done. She subsequently was seen at [facility] approximately 3 months ago and was admitted for 3 days. She is uncertain whether an MRI was done. She was subsequently discharged to inpatient rehabilitation at [facility] where she has remained for the past 3 months. She has had recent outpatient evaluation with neurology. She indicates that follow-up visit with her primary care physician recently prompted a visit to the emergency room yesterday. 08/04: Patient states she is doing well this afternoon when seen. Pain is controlled with medication and rates it a 2 out of 10. Still with numbness, tingling and weakness to the extremities. (Jeff Talbert) Labs, Micro, & Vital Signs Results Vital Signs, 24 Hour Date Time Temp Pulse Resp B/P Pulse Ox O2 Delivery O2 Flow Rate FiO2 08/04/16 16:21 154/62 Automatic Cuff 08/04/16 16:03 98.3 57 14 179/77 100 Manual Cuff/Auscultation 08/04/16 11:44 98.0 64 18 97 166/62 08/04/16 07:27 97.8 56 16 168/63 99 08/04/16 04:00 97.6 67 18 142/67 97 08/04/16 03:05 21 08/04/16 00:00 97.6 59 20 178/71 96 08/03/16 20:33 97.2 55 194/78 98 Allergies Coded Allergies No Known Allergies (Verified08/02/16) Active Scripts Active Reported Coreg Cr 24 HR (Carvedilol) 40 Mg Cap 40 Mg PO DAILY Trazodone (Trazodone HCl) 50 Mg Tab 250 Mg PO HS Ferrous Sulfate 325 Mg Tab 325 Mg PO BID Zetia (Ezetimibe) 10 Mg Tab 10 Mg PO DAILY Tramadol Hydrochloride (Tramadol HCl) 50 Mg Tab Lisinopril 40 Mg Tab 40 Mg PO DAILY Levothyroxine (Levothyroxine Sodium) 50 Mcg Tab 50 Mcg PO DAILY Gabapentin 300 Mg Cap 300 Mg PO HS Folic Acid 5 Mg Cap 1 Mg PO DAILY Diovan (Valsartan) 160 Mg Tab 160 Mg PO DAILY Detrol LA (Tolterodine Tartrate) 4 Mg Cap 4 Mg PO DAILY Crestor (Rosuvastatin Calcium) 10 Mg Tab 10 Mg PO DAILY Benzonatate 100 Mg Cap 100 Mg PO TID PRN Apidra Inj (Insulin Glulisine Inj) 1,000 Unit/10 Ml Vial 100 Units SQ Alendronate (Alendronate Sodium) 35 Mg Tab 35 Mg PO Q7D Date Time Temp Pulse Resp B/P Pulse Ox O2 Delivery O2 Flow Rate FiO2 08/04/16 16:21 154/62 Automatic Cuff 08/04/16 16:03 98.3 57 14 179/77 100 Manual Cuff/Auscultation 08/04/16 11:44 98.0 64 18 97 166/62 08/04/16 07:27 97.8 56 16 168/63 99 08/04/16 04:00 97.6 67 18 142/67 97 08/04/16 03:05 21 08/04/16 00:00 97.6 59 20 178/71 96 08/03/16 20:33 97.2 55 194/78 98 Constitutional Vital Signs Date Time Temp Pulse Resp B/P Pulse Ox O2 Delivery O2 Flow Rate FiO2 08/04/16 16:21 154/62 Automatic Cuff 08/04/16 16:03 98.3 57 14 179/77 100 Manual Cuff/Auscultation 08/04/16 11:44 98.0 64 18 97 166/62 08/04/16 07:27 97.8 56 16 168/63 99 08/04/16 04:00 97.6 67 18 142/67 97 08/04/16 03:05 21 08/04/16 00:00 97.6 59 20 178/71 96 08/03/16 20:33 97.2 55 20 194/78 98 (Jeff Talbert) Review of Systems/Exam ROS Neuro: Still with numbness & weakness to the extremities. Denies any headache or dizziness. Resp: Denies any shortness of breath. Cardiac: Denies any chest pain or palpitations. GI: Denies any abdominal pain, N/V or bowel incontinence. : Denies any urinary incontinence. MS: Denies any arm or leg pain. Exam Resp: CTAB w/o W/R/R, equal excursion, non-laboured, on RA. CV: RRR w/o M/G/R, radial & pedal pulses 2+ bilaterally, cap refill < 2 sec, trace pedal edema. GI: Abdomen soft, nontender, positive bowel sound all quadrants. MS: Extremities nontender, no clubbing or deformity evident. Neuro: AAOx3, speech clear & appropriate, follows commands, sensation decreased to light touch to all extremities, motor strength 4/5 deltoids & biceps, 3+/5 triceps, 2/5 hand intrinsics & extensors, and 2/5 BLE to all major flexion & extension muscle groups. (Jeff Talbert) Medications Current Medications Current Medications Medications (Trade) Dose Ordered Sig/Jin Route Start Time Stop Time Status Last Admin (NS Flush) 2 ml UNSCH PRN IV FLUSH 08/02/16 17:00 (NS Flush) 2 ml BID IV FLUSH 08/02/16 21:00 08/04/16 08:50 (Tylenol) 650 mg Q4H PRN PO 08/02/16 17:00 (Zofran Inj) 4 mg Q6H PRN IVP 08/02/16 17:00 (Colace) 100 mg Q12H PO 08/02/16 18:00 08/04/16 06:32 (Milk Of Magnesia Liq) 30 ml Q12H PRN PO 08/02/16 17:00 (Restoril) 15 mg HS PRN PO 08/02/16 21:00 Enoxaparin Sodium 40 mg 40 mg Q24H SQ 08/02/16 18:00 08/03/16 18:28 (Rocephin Inj/NS Inj) 100 ml @ 200 mls/hr Q24H IV 08/03/16 17:00 08/03/16 18:28 (Tessalon) 100 mg TID PRN PO 08/03/16 00:30 (Zetia) 10 mg DAILY PO 08/03/16 09:00 08/04/16 08:50 (Neurontin) 300 mg HS PO 08/03/16 21:00 08/03/16 22:42 (Synthroid) 50 mcg DAILY@07 PO 08/03/16 07:00 08/04/16 06:32 (Detrol La) 4 mg DAILY PO 08/03/16 09:00 08/04/16 08:50 (Diovan) 160 mg DAILY PO 08/03/16 09:00 08/04/16 08:50 (Ferrous Sulfate) 325 mg DAILY PO 08/03/16 09:00 08/04/16 08:50 (Prinivil) 40 mg DAILY PO 08/03/16 09:00 08/04/16 08:50 (Ultram) 50 mg Q8H PRN PO 08/03/16 00:45 08/04/16 06:33 (D50w (Vial) Inj) 25 ml UNSCH PRN IV PUSH 08/03/16 17:00 (Glucagon Inj) 1 mg UNSCH PRN OTHER 08/03/16 17:00 (Norvasc) 5 mg DAILY PO 08/04/16 09:00 08/04/16 12:57 (Jeff Talbert) Medical Decision Making MDM Remarks 1. Severe cervical stenosis 2. Severe cervical myelopathy 3. Hypertension 4. Diabetes 5. History of coronary artery disease 6. UTI 7. Elevated CSF protein from lumbar puncture per Dr Mack's office note of (per note by BRANDIN Henriquez, for today) (Jeff Talbert) Plan Plan Remarks Tx UTI per primary team. Blood pressure control per primary team. Plan for C4-5 & C6-7 ACDF on Monday. (Jeff Talbert) Attending Statement I have personally seen and examined the patient on the date of this note. Pertinent documentation and study results have been reviewed by the undersigned. I have personally developed the treatment plan and performed medical decision making. Agree with findings, exam, and treatment plan as noted above. Neurologic exam stable. Discussed with neurology today (Sav Eddy MD) Jeff Talbert Aug 04, 2016 17:57 Sav Eddy MD Aug 05, 2016 19:26
[2016-08-04] MEDS: cefTRIAXone INJ 1,000 MG in SODIUM CHLORIDE 0.9% INJ 100 ML IV SCH (18:06)
[2016-08-04] MEDS: ENOXAPARIN SODIUM 40 MG/0.4 ML SYRINGE SQ SCH (18:06)
[2016-08-04] MEDS: CARVEDILOL 12.5 MG TAB PO SCH (21:50)
[2016-08-04] MEDS: GABAPENTIN 300 MG CAP PO SCH (21:50)
[2016-08-05] VITALS: BP 194/78; PULSE 60; RESP 20; TEMP 96; O2SAT 98
[2016-08-05] MEDS ORDERED: amLODIPine BESYLATE 5 MG TAB PO ONE (01:30)
[2016-08-05 04:32] VITALS: BP 193/79; PULSE 60; RESP 18; TEMP 96.5; O2SAT 98
[2016-08-05] MEDS: INSULIN ASPART SUPPLEMENTAL SCALE SQ SCH ×4 (06:32→21:00)
[2016-08-05] MEDS: LEVOTHYROXINE SODIUM 50 MCG TAB PO SCH (06:32)
[2016-08-05] MEDS: DOCUSATE SODIUM 100 MG CAP PO SCH ×2 (06:32→17:37)
[2016-08-05 07:35] VITALS: O2SAT 98
--- NOTE | 2016-08-05 07:46 | HHI.PR ---
Objective Vital Signs Date Time Temp Pulse Resp B/P Pulse Ox O2 Delivery O2 Flow Rate FiO2 08/05/16 07:35 98 21 08/05/16 04:32 96.5 60 18 193/79 98 08/05/16 00:00 96.0 60 20 194/78 98 08/04/16 20:00 96.3 63 18 212/81 98 08/04/16 16:21 154/62 Automatic Cuff 08/04/16 16:03 98.3 57 14 179/77 100 Manual Cuff/Auscultation 08/04/16 11:44 98.0 64 18 97 166/62 I/O 08/04/16 08/04/16 08/04/16 08/05/16 08/05/16 08/05/16 07:00 15:00 23:00 07:00 15:00 23:00 Intake Total 240 ml Balance 240 ml Intake Oral 240 ml # Voids 3 0 # Bowel Movements 2 0 Result Diagram: 08/03/16 1026 08/03/16 0656 Objective Remarks no change good bicep and weak below that 4- bilat ta Assessment and Plan Assessment and Plan imp cervical myelopathy nusu on case for or uti and bp control by med team T cord mass effect on that also defer to nusu i dw them stable neuro need more aggressive bp control Sriram Remy MD Aug 05, 2016 07:46
[2016-08-05 08:00] VITALS: BP 167/68; PULSE 55; RESP 20; TEMP 97.6; O2SAT 99
[2016-08-05] MEDS: CARVEDILOL 12.5 MG TAB PO SCH ×2 (08:53→21:47)
[2016-08-05] MEDS: EZETIMIBE 10 MG TAB PO SCH (08:53)
[2016-08-05] MEDS: FERROUS SULFATE 325 MG (65 MG ELEMENTAL IRON) TAB PO SCH (08:53)
[2016-08-05] MEDS: TOLTERODINE TARTRATE 4 MG CAP LA PO SCH (08:53)
[2016-08-05] MEDS: VALSARTAN 160 MG TAB PO SCH (08:53)
[2016-08-05] MEDS: NIFEdipine 60 MG SUSTAINED RELEASE TAB PO SCH (08:53)
[2016-08-05] MEDS: LISINOPRIL 20 MG TAB PO SCH (08:53)
[2016-08-05] MEDS: SODIUM CHLORIDE 0.9% FLUSH 10 ML FLUSH IV FLUSH SCH ×2 (08:53→21:48)
[2016-08-05] MEDS ORDERED: amLODIPine BESYLATE 5 MG TAB PO SCH (09:00)
--- NOTE | 2016-08-05 09:27 | HHI.PR ---
Subjective Remarks Follow up cervical stenosis and UTI. Patient seen and examined today at bedside. Surgery with Dr. Eddy is planned for Monday and patient is aware. Discussed patient's blood pressure and change in medication with patient. She currently denies any chest pain, sob, headaches or dysuria. She is not able to move her lower extremities but she does have intact sensation. Objective Vitals Vital Signs Date Time Temp Pulse Resp B/P Pulse Ox O2 Delivery O2 Flow Rate FiO2 08/05/16 07:35 98 21 08/05/16 04:32 96.5 60 18 193/79 98 08/05/16 00:00 96.0 60 20 194/78 98 08/04/16 20:00 96.3 63 18 212/81 98 08/04/16 16:21 154/62 Automatic Cuff 08/04/16 16:03 98.3 57 14 179/77 100 Manual Cuff/Auscultation 08/04/16 11:44 98.0 64 18 97 166/62 I/O 08/04/16 08/04/16 08/04/16 08/05/16 08/05/16 08/05/16 07:00 15:00 23:00 07:00 15:00 23:00 Intake Total 240 ml Balance 240 ml Intake Oral 240 ml # Voids 3 0 # Bowel Movements 2 0 Result Diagram: 08/03/16 1026 08/03/16 0656 Imaging Last Impressions Thoracic Spine MRI 08/03/16950 Signed Impressions: Service Date/Time: Wednesday, August 03, 2016 11:28 - CONCLUSION: Moderate spinal stenosis at the T10-T11 level. There is minimal anterior wedging of the T12 vertebral body old by MRI. Asad Rajan MD FACR Cervical Spine MRI 08/03/1651 Signed Impressions: Service Date/Time: Wednesday, August 03, 2016 11:28 - CONCLUSION: Multilevel cord compression at the C4-5 and C6-7 levels due to a combination of posterior element bony hypertrophy and disc protrusions. The cervical cord is narrowed to 2 mm at C4-5 and to 3 mm at C6-7. There is abnormal signal with in the compressed cord at both levels characterized by T2 prolongation and, at the C4- 5 level, enhancement in the posterior column of the cord. There is also less severe disc disease at other levels in the cervical spine as described above. Juan Beltre MD Head CT 08/02/16 0000 Signed Impressions: Service Date/Time: Tuesday, August 02, 2016 16:14 - CONCLUSION: 1. No acute intracranial abnormality. 2. Opacification of the left ethmoid air cells. Darrell Ashley MD Objective Remarks GENERAL: This is an elderly female patient, who is in no apparent distress. SKIN: No rashes, ecchymoses or lesions. Cool and dry. HEAD: Atraumatic. Normocephalic. EYES: No scleral icterus. No injection or drainage. ENT: Nose without bleeding, purulent drainage. NECK: Trachea midline. No JVD or lymphadenopathy. CARDIOVASCULAR: Regular rate and rhythm without murmurs, gallops, or rubs. RESPIRATORY: Clear to auscultation. Breath sounds equal bilaterally. No wheezes , rales, or rhonchi. GASTROINTESTINAL: Abdomen soft, non-tender, nondistended. No guarding. MUSCULOSKELETAL: Extremities without clubbing, cyanosis, or edema. No calf tenderness. NEUROLOGICAL: Awake and alert. Lower extremity weakness, sensation intact. Normal speech. Medications and IVs Current Medications Medications (Trade) Dose Ordered Sig/Jin Route Start Time Stop Time Status Last Admin (NS Flush) 2 ml UNSCH PRN IV FLUSH 08/02/16 17:00 (NS Flush) 2 ml BID IV FLUSH 08/02/16 21:00 08/05/16 08:53 (Tylenol) 650 mg Q4H PRN PO 08/02/16 17:00 (Zofran Inj) 4 mg Q6H PRN IVP 08/02/16 17:00 (Colace) 100 mg Q12H PO 08/02/16 18:00 08/05/16 06:32 (Milk Of Magnesia Liq) 30 ml Q12H PRN PO 08/02/16 17:00 (Restoril) 15 mg HS PRN PO 08/02/16 21:00 Enoxaparin Sodium 40 mg 40 mg Q24H SQ 08/02/16 18:00 08/04/16 18:06 (Rocephin Inj/NS Inj) 100 ml @ 200 mls/hr Q24H IV 08/03/16 17:00 08/04/16 18:06 (Tessalon) 100 mg TID PRN PO 08/03/16 00:30 (Zetia) 10 mg DAILY PO 08/03/16 09:00 08/05/16 08:53 (Neurontin) 300 mg HS PO 08/03/16 21:00 08/04/16 21:50 (Synthroid) 50 mcg DAILY@07 PO 08/03/16 07:00 08/05/16 06:32 (Detrol La) 4 mg DAILY PO 08/03/16 09:00 08/05/16 08:53 (Diovan) 160 mg DAILY PO 08/03/16 09:00 08/05/16 08:53 (Ferrous Sulfate) 325 mg DAILY PO 08/03/16 09:00 08/05/16 08:53 (Prinivil) 40 mg DAILY PO 08/03/16 09:00 08/05/16 08:53 (Ultram) 50 mg Q8H PRN PO 08/03/16 00:45 08/04/16 21:50 (D50w (Vial) Inj) 25 ml UNSCH PRN IV PUSH 08/03/16 17:00 (Glucagon Inj) 1 mg UNSCH PRN OTHER 08/03/16 17:00 (Coreg) 12.5 mg BID PO 08/04/16 21:00 08/05/16 08:53 (Procardia Xl) 60 mg DAILY PO 08/05/16 09:00 08/05/16 08:53 A/P Problem List: (1) CIDP (chronic inflammatory demyelinating polyneuropathy) ICD Code: G61.81 Status: Acute (2) Leg weakness, bilateral ICD Code: R29.898 Status: Acute (3) UTI (urinary tract infection) ICD Code: N39.0 Status: Acute (4) HTN (hypertension) ICD Code: I10 Status: Acute Assessment and Plan Ms. Meyers is an 81 year-old female who presented to the emergency room on 08/02 after being seen by her neurologist Dr. Mack in [place] for progressively worsening weakness in lower legs over the past 7 months. Patient is currently unable to walk. Progressive bilateral lower extremity weakness with concern for CIDP per patient s neurologist - Per Dr. Mack's documentation (follow up office note dated 08/02/16-copy on chart), lumbar puncture showed elevated protein in the CSF. - consult neurology, Dr. Che ordered MRI, MRI showed Multilevel cord compression due to spinal stenosis and disk bulging -Consult Dr. Eddy, plan is for surgery on Monday with an anterior and posterior approach, staggered approach UTI - u/a suggestive of UTI with nitrites, blood, WBCs and many bacteria, culture shows preliminary gram negative rods and Ecoli - Cont Ceftriaxone 1 g IV every 24 hours - await final culture Poorly controlled hypertension - likely secondary to pain, BP 193/79 -Cont home antihypertensive medications Lisinopril and valsartan -D/C Norvasc, start Nifedipine 60mg Daily -provide pain management Tramadol PRN DVT prophylaxis - Lovenox 40 mg subq q24h Problem Qualifiers (1) UTI (urinary tract infection): Qualified Code: N30.00 - Acute cystitis without hematuria (2) HTN (hypertension): Qualified Code: I10 - Essential hypertension Michelle Singh Aug 05, 2016 09:27
[2016-08-05 10:48] LABS: ANA SCREEN POS (NEG)
--- NOTE | 2016-08-05 11:04 | HHI.NSPN ---
(Jeff Talbert) Note Status Status: Progress Note (Jeff Talbert Judit DANGELO) Interval History Interval History 08/03: 81-year-old female with history of previous low back surgery in 1994 for treatment of low back and lower extremity pain symptoms. She initially did very well following surgery for many years. Approximately 7 months ago she developed onset of progressive gait difficulty, severe enough to require her to start using a walker. By approximate 3-4 months ago she continued to experience further progressive gait difficulty and started falling even despite the walker, as well as onset of numbness and weakness in her hands with loss of upper extremity coordination. At that time she had to start using a wheelchair to mobilize. She was seen for further medical evaluation and indicates no further testing was done. She subsequently was seen at [facility] approximately 3 months ago and was admitted for 3 days. She is uncertain whether an MRI was done. She was subsequently discharged to inpatient rehabilitation at [facility] where she has remained for the past 3 months. She has had recent outpatient evaluation with neurology. She indicates that follow-up visit with her primary care physician recently prompted a visit to the emergency room yesterday. 08/04: Patient states she is doing well this afternoon when seen. Pain is controlled with medication and rates it a 2 out of 10. Still with numbness, tingling and weakness to the extremities. 08/05: Patient states she is doing good this morning, pain is controlled with meds, some improvement in numbness & tingling. (NitishJeff DANGELO) Labs, Micro, & Vital Signs Results Date Time Temp Pulse Resp B/P Pulse Ox O2 Delivery O2 Flow Rate FiO2 08/05/16 08:00 97.6 55 20 167/68 99 08/05/16 07:35 98 21 08/05/16 04:32 96.5 60 18 193/79 98 08/05/16 00:00 96.0 60 20 194/78 98 08/04/16 20:00 96.3 63 18 212/81 98 08/04/16 16:21 154/62 Automatic Cuff 08/04/16 16:03 98.3 57 14 179/77 100 Manual Cuff/Auscultation 08/04/16 11:44 98.0 64 18 97 166/62 08/05/16 07:00 Intake Total 240 ml Balance 240 ml Constitutional Vital Signs Date Time Temp Pulse Resp B/P Pulse Ox O2 Delivery O2 Flow Rate FiO2 08/05/16 08:00 97.6 55 20 167/68 99 08/05/16 07:35 98 21 08/05/16 04:32 96.5 60 18 193/79 98 08/05/16 00:00 96.0 60 20 194/78 98 08/04/16 20:00 96.3 63 18 212/81 98 08/04/16 16:21 154/62 Automatic Cuff 08/04/16 16:03 98.3 57 14 179/77 100 Manual Cuff/Auscultation 08/04/16 11:44 98.0 64 18 97 166/62 08/05/16 07:00 Intake Total 240 ml Balance 240 ml (Jeff Talbert) Review of Systems/Exam ROS Neuro: Some numbness & weakness to the extremities. GI: Denies any bowel incontinence. : Denies any urinary incontinence. MS: Denies any arm or leg pain. Exam AAOx3 Speech clear & appropriate Follows commands Sensation decreased to light touch to lower extremities but improved Hip extension LLE 2/5 & RLE 3/5 (Jeff Talbert) Medications Current Medications Current Medications Medications (Trade) Dose Ordered Sig/Jin Route Start Time Stop Time Status Last Admin (NS Flush) 2 ml UNSCH PRN IV FLUSH 08/02/16 17:00 (NS Flush) 2 ml BID IV FLUSH 08/02/16 21:00 08/05/16 08:53 (Tylenol) 650 mg Q4H PRN PO 08/02/16 17:00 (Zofran Inj) 4 mg Q6H PRN IVP 08/02/16 17:00 (Colace) 100 mg Q12H PO 08/02/16 18:00 08/05/16 06:32 (Milk Of Magnesia Liq) 30 ml Q12H PRN PO 08/02/16 17:00 (Restoril) 15 mg HS PRN PO 08/02/16 21:00 Enoxaparin Sodium 40 mg 40 mg Q24H SQ 08/02/16 18:00 08/04/16 18:06 (Rocephin Inj/NS Inj) 100 ml @ 200 mls/hr Q24H IV 08/03/16 17:00 08/04/16 18:06 (Tessalon) 100 mg TID PRN PO 08/03/16 00:30 (Zetia) 10 mg DAILY PO 08/03/16 09:00 08/05/16 08:53 (Neurontin) 300 mg HS PO 08/03/16 21:00 08/04/16 21:50 (Synthroid) 50 mcg DAILY@07 PO 08/03/16 07:00 08/05/16 06:32 (Detrol La) 4 mg DAILY PO 08/03/16 09:00 08/05/16 08:53 (Diovan) 160 mg DAILY PO 08/03/16 09:00 08/05/16 08:53 (Ferrous Sulfate) 325 mg DAILY PO 08/03/16 09:00 08/05/16 08:53 (Prinivil) 40 mg DAILY PO 08/03/16 09:00 08/05/16 08:53 (Ultram) 50 mg Q8H PRN PO 08/03/16 00:45 08/04/16 21:50 (D50w (Vial) Inj) 25 ml UNSCH PRN IV PUSH 08/03/16 17:00 (Glucagon Inj) 1 mg UNSCH PRN OTHER 08/03/16 17:00 (Coreg) 12.5 mg BID PO 08/04/16 21:00 08/05/16 08:53 (Procardia Xl) 60 mg DAILY PO 08/05/16 09:00 08/05/16 08:53 (Jeff Talbert) Medical Decision Making MDM Remarks 1. Severe cervical stenosis 2. Severe cervical myelopathy 3. Hypertension 4. Diabetes 5. History of coronary artery disease 6. Escherichia coli UTI, sensitive to Rocephin which patient is on 7. Elevated CSF protein from lumbar puncture per Dr Mack's office note of (per note by BRANDIN Henriquez, for today) (Jeff Talbert) Plan Plan Remarks 1. Plan for C4-5 & C6-7 ACDF on Monday. 2. Probable posterior cervical diskectomy & fusion on . A. Plan for MRI cerivical spine after ACDF to determine need for posterior approach. 3. Tx UTI per primary team. A. UA & urine culture with gram stain on Monday to ensure UTI has cleared. 4. Blood pressure control per primary team. (Jeff Talbert) Plan Remarks Pending resolution of patient's UTI and medical clearance, plan C4 5 and C6 7 ACDF on 08/08/16. She will likely need a staged posterior decompression depending on initial postoperative imaging and clinical course Discussed with patient Clinical exam appears a little better today with definite improvement in left distal or actually sensory function and some improvement in upper and lower extremity motor function compared to initial examination. (Sav Eddy MD) Jeff Talbert Aug 05, 2016 11:04 Sva Eddy MD Aug 05, 2016 19:29
[2016-08-05 12:00] VITALS: BP 177/73; PULSE 67; RESP 20; TEMP 98.5; O2SAT 98
[2016-08-05] MEDS: cefTRIAXone INJ 1,000 MG in SODIUM CHLORIDE 0.9% INJ 100 ML IV SCH (17:37)
[2016-08-05] MEDS: traMADol HCL 50 MG TAB PO PRN (17:37)
[2016-08-05] MEDS: ENOXAPARIN SODIUM 40 MG/0.4 ML SYRINGE SQ SCH (17:37)
[2016-08-05 19:33] VITALS: BP 173/74; PULSE 70; RESP 20; TEMP 98.9; O2SAT 99
[2016-08-05] MEDS: ACETAMINOPHEN 325 MG TAB PO PRN (21:47)
[2016-08-05] MEDS: GABAPENTIN 300 MG CAP PO SCH (21:47)
[2016-08-06 00:15] VITALS: BP 132/57; PULSE 60; RESP 21; TEMP 98.9; O2SAT 100
[2016-08-06] MEDS: traMADol HCL 50 MG TAB PO PRN ×3 (01:22→23:47)
[2016-08-06 04:20] VITALS: BP 149/62; PULSE 56; RESP 20; TEMP 98.6; O2SAT 99
[2016-08-06] MEDS: DOCUSATE SODIUM 100 MG CAP PO SCH ×2 (06:14→17:34)
[2016-08-06] MEDS: LEVOTHYROXINE SODIUM 50 MCG TAB PO SCH (06:14)
[2016-08-06] MEDS: INSULIN ASPART SUPPLEMENTAL SCALE SQ SCH ×4 (06:14→20:35)
[2016-08-06 08:00] VITALS: BP 164/72; PULSE 56; RESP 20; TEMP 97.4; O2SAT 97
[2016-08-06] MEDS: SODIUM CHLORIDE 0.9% FLUSH 10 ML FLUSH IV FLUSH SCH ×2 (09:00→20:35)
[2016-08-06] MEDS: NIFEdipine 60 MG SUSTAINED RELEASE TAB PO SCH (11:15)
[2016-08-06] MEDS: VALSARTAN 160 MG TAB PO SCH (11:15)
[2016-08-06] MEDS: LISINOPRIL 20 MG TAB PO SCH (11:16)
[2016-08-06] MEDS: CARVEDILOL 12.5 MG TAB PO SCH ×2 (11:16→20:35)
[2016-08-06] MEDS: FERROUS SULFATE 325 MG (65 MG ELEMENTAL IRON) TAB PO SCH (11:16)
[2016-08-06] MEDS: TOLTERODINE TARTRATE 4 MG CAP LA PO SCH (11:16)
[2016-08-06 12:00] VITALS: BP 174/74; PULSE 74; RESP 20; TEMP 96.5; O2SAT 97
[2016-08-06] MEDS ORDERED: NIFEdipine 30 MG SUSTAINED RELEASE TAB PO ONE (13:00)
[2016-08-06] MEDS: EZETIMIBE 10 MG TAB PO SCH (14:58)
--- NOTE | 2016-08-06 15:01 | HHI.PR ---
Subjective Remarks Follow-up for severe cervical stenosis. Patient denies any headache. Continues to have lower extremity weakness. She denies any further urinary symptoms. Objective Vitals Vital Signs Date Time Temp Pulse Resp B/P Pulse Ox O2 Delivery O2 Flow Rate FiO2 08/06/16 12:23 20 08/06/16 12:00 96.5 74 20 174/74 97 08/06/16 08:00 97.4 56 20 164/72 97 08/06/16 04:20 98.6 56 20 149/62 99 08/06/16 00:15 98.9 60 21 132/57 100 08/05/16 19:33 98.9 70 20 173/74 99 I/O 08/05/16 08/05/16 08/05/16 08/06/16 08/06/16 08/06/16 07:00 15:00 23:00 07:00 15:00 23:00 Intake Total 240 ml 480 ml Balance 240 ml 480 ml Intake Oral 240 ml 480 ml # Voids 0 2 4 # Bowel Movements 0 1 Result Diagram: 08/03/16 1026 08/03/16 0656 Imaging Last Impressions Thoracic Spine MRI 08/03/16 0951 Signed Impressions: Service Date/Time: Wednesday, August 03, 2016 11:28 - CONCLUSION: Moderate spinal stenosis at the T10-T11 level. There is minimal anterior wedging of the T12 vertebral body old by MRI. Asad Rajan MD FACR Cervical Spine MRI 08/03/16 0951 Signed Impressions: Service Date/Time: Wednesday, August 03, 2016 11:28 - CONCLUSION: Multilevel cord compression at the C4-5 and C6-7 levels due to a combination of posterior element bony hypertrophy and disc protrusions. The cervical cord is narrowed to 2 mm at C4-5 and to 3 mm at C6-7. There is abnormal signal with in the compressed cord at both levels characterized by T2 prolongation and, at the C4- 5 level, enhancement in the posterior column of the cord. There is also less severe disc disease at other levels in the cervical spine as described above. Juan Beltre MD Head CT 08/02/16 0000 Signed Impressions: Service Date/Time: Tuesday, August 02, 2016 16:14 - CONCLUSION: 1. No acute intracranial abnormality. 2. Opacification of the left ethmoid air cells. Darrell Ashley MD Objective Remarks GENERAL: Well-developed well-nourished. In no acute distress. SKIN: Warm and dry. No lesions noted. HEENT: Normocephalic. Pupils equal and round. Mucous membranes pink and moist. CARDIOVASCULAR: Regular rate and rhythm. No murmur appreciated. RESPIRATORY: No accessory muscle use. Clear to auscultation. Breath sounds equal bilaterally. GASTROINTESTINAL: Abdomen soft, non-tender, nondistended. Bowel sounds x4. MUSCULOSKELETAL: No obvious deformities. No clubbing or cyanosis. No edema. NEUROLOGICAL: Awake and alert. Profound lower extremity weakness, but able to wheel toes. Upper extremity weakness with triceps extension. Normal speech. PSYCHIATRIC: Appropriate mood and affect; insight and judgment normal. A/P Problem List: (1) CIDP (chronic inflammatory demyelinating polyneuropathy) ICD Code: G61.81 Status: Acute (2) Leg weakness, bilateral ICD Code: R29.898 Status: Acute (3) UTI (urinary tract infection) ICD Code: N39.0 Status: Acute (4) HTN (hypertension) ICD Code: I10 Status: Acute Assessment and Plan Ms. Meyers is an 81 year-old female who presented to the emergency room on 08/02 after being seen by her neurologist Dr. Mack in [place] for progressively worsening weakness in lower legs over the past 7 months. Patient is currently unable to walk. Progressive bilateral lower extremity weakness with concern for CIDP per patient s neurologist - Per Dr. Mack's documentation (follow up office note dated 08/02/16-copy on chart), lumbar puncture showed elevated protein in the CSF. - consulted neurology, Dr. Che ordered MRI, MRI showed severe multilevel cord compression due to spinal stenosis and disk bulging - Consulted Dr. Eddy, planning for operative intervention on 08/08 - Tramadol as needed for pain UTI Urine culture growing Escherichia coli sensitive to ceftriaxone. Patient has received IV ceftriaxone 4 days -Treated, DC antibiotics Hypertension: Uncontrolled - Continued home lisinopril, carvedilol, and valsartan - Monitor blood pressure trends and adjust treatments as indicated - provide pain management PRN - Started on nifedipine, increase dose to 90 mg daily - Consider starting HCTZ tomorrow if not improved. Diabetes mellitus, reasonably controlled -Accu checks with SSI DVT prophylaxis - Lovenox 40 mg subq q24h, hold after today pending surgery - SCDs Discharge Planning Follow-up neurosurgery recommendations. Problem Qualifiers (1) UTI (urinary tract infection): Qualified Code: N30.00 - Acute cystitis without hematuria (2) HTN (hypertension): Qualified Code: I10 - Essential hypertension Kory Montemayor Aug 06, 2016 15:01
[2016-08-06 16:00] VITALS: BP 136/58; PULSE 64; RESP 20; TEMP 97.1; O2SAT 98
[2016-08-06] MEDS: ENOXAPARIN SODIUM 40 MG/0.4 ML SYRINGE SQ SCH (17:34)
[2016-08-06] MEDS: GABAPENTIN 300 MG CAP PO SCH (20:35)
[2016-08-07] MEDS: DOCUSATE SODIUM 100 MG CAP PO SCH ×2 (06:07→17:07)
[2016-08-07] MEDS: LEVOTHYROXINE SODIUM 50 MCG TAB PO SCH (06:07)
[2016-08-07] MEDS: INSULIN ASPART SUPPLEMENTAL SCALE SQ SCH ×4 (06:12→19:48)
[2016-08-07 08:00] VITALS: BP 135/62; PULSE 57; RESP 18; TEMP 98.2; O2SAT 100
[2016-08-07] MEDS: SODIUM CHLORIDE 0.9% FLUSH 10 ML FLUSH IV FLUSH SCH ×2 (09:00→19:47)
--- NOTE | 2016-08-07 09:09 | HHI.PR ---
Subjective Remarks Follow-up for cervical spinal stenosis. The patient denies any chest pain, shortness breath, nausea, vomiting, diarrhea, constipation. She states she had a normal bowel movement yesterday. No acute complaints today. Still weak. Objective Vitals Vital Signs Date Time Temp Pulse Resp B/P Pulse Ox O2 Delivery O2 Flow Rate FiO2 08/07/16 08:00 98.2 57 18 135/62 100 08/07/16 00:47 16 08/06/16 16:00 97.1 64 20 136/58 98 08/06/16 12:00 96.5 74 20 174/74 97 I/O 08/06/16 08/06/16 08/06/16 08/07/16 08/07/16 08/07/16 07:00 15:00 23:00 07:00 15:00 23:00 Intake Total 480 ml Output Total 300 ml Balance 480 ml -300 ml Intake Oral 480 ml Output Urine Total 300 ml # Voids 4 # Bowel Movements 1 Result Diagram: 08/03/16 1026 08/03/16 0656 Objective Remarks GENERAL: Well-developed well-nourished. In no acute distress. SKIN: Warm and dry. No lesions noted. HEENT: Normocephalic. Pupils equal and round. Mucous membranes pink and moist. CARDIOVASCULAR: Regular rate and rhythm. No murmur appreciated. RESPIRATORY: No accessory muscle use. Clear to auscultation. Breath sounds equal bilaterally. GASTROINTESTINAL: Abdomen soft, non-tender, nondistended. Bowel sounds x4. MUSCULOSKELETAL: No obvious deformities. No clubbing or cyanosis. No edema. NEUROLOGICAL: Awake and alert. Lower extremity weakness, left worse than right. Upper extremity weakness with triceps extension. Normal speech. PSYCHIATRIC: Appropriate mood and affect; insight and judgment normal. A/P Problem List: (1) CIDP (chronic inflammatory demyelinating polyneuropathy) ICD Code: G61.81 Status: Acute (2) Leg weakness, bilateral ICD Code: R29.898 Status: Acute (3) UTI (urinary tract infection) ICD Code: N39.0 Status: Acute (4) HTN (hypertension) ICD Code: I10 Status: Acute Assessment and Plan Ms. Meyers is an 81 year-old female who presented to the emergency room on 08/02 after being seen by her neurologist Dr. Mack in [place] for progressively worsening weakness in lower legs over the past 7 months. Patient is currently unable to walk. Progressive bilateral lower extremity weakness with concern for CIDP per patient s neurologist - Per Dr. Mack's documentation (follow up office note dated 08/02/16-copy on chart), lumbar puncture showed elevated protein in the CSF. - consulted neurology, Dr. Che ordered MRI, MRI showed severe multilevel cord compression due to spinal stenosis and disk bulging - Consulted Dr. Eddy, planning for operative intervention on 08/08 - Tramadol as needed for pain UTI Urine culture growing Escherichia coli sensitive to ceftriaxone. Patient has received IV ceftriaxone 4 days -Treated, DC antibiotics Hypertension: Uncontrolled, better currently - Continued home lisinopril, carvedilol, and valsartan - Monitor blood pressure trends and adjust treatments as indicated - provide pain management PRN - Started on nifedipine, titrated dose to 90 mg daily Diabetes mellitus, reasonably controlled -Accu checks with SSI DVT prophylaxis - Lovenox on hold pending surgery - SCDs Written by Kory Montemayor, acting as scribe for Dr. Pyle on 08/07/16 at 09:09. This note was transcribed by yuri [email or web address]. I, Dr. Michelle Pyle personally performed the history, physical exam, and medical decision making; and confirmed the accuracy of the information in the transcribed note. Authenticated by Dr. Michelle Pyle on 08/07/16 at 09:09. Discharge Planning Follow-up neurosurgery recommendations. Problem Qualifiers (1) UTI (urinary tract infection): Qualified Code: N30.00 - Acute cystitis without hematuria (2) HTN (hypertension): Qualified Code: I10 - Essential hypertension Kory Montemayor Aug 07, 2016 09:09 Michelle Pyle MD Aug 07, 2016 16:50
[2016-08-07] MEDS: VALSARTAN 160 MG TAB PO SCH (09:44)
[2016-08-07] MEDS: NIFEdipine 90 MG SUSTAINED RELEASE TAB PO SCH (09:45)
[2016-08-07] MEDS: EZETIMIBE 10 MG TAB PO SCH (09:45)
[2016-08-07] MEDS: LISINOPRIL 20 MG TAB PO SCH (09:45)
[2016-08-07] MEDS: CARVEDILOL 12.5 MG TAB PO SCH ×2 (09:46→19:47)
[2016-08-07] MEDS: TOLTERODINE TARTRATE 4 MG CAP LA PO SCH (09:46)
[2016-08-07] MEDS: FERROUS SULFATE 325 MG (65 MG ELEMENTAL IRON) TAB PO SCH (09:46)
[2016-08-07 12:00] VITALS: BP 151/70; PULSE 59; RESP 18; TEMP 98.2; O2SAT 97
[2016-08-07] MEDS: traMADol HCL 50 MG TAB PO PRN ×2 (12:18→22:06)
--- NOTE | 2016-08-07 19:37 | HHI.NSPN ---
Exam Results Vital Signs Date Time Temp Pulse Resp B/P Pulse Ox O2 Delivery O2 Flow Rate FiO2 08/07/16 13:18 20 08/07/16 12:00 98.2 59 151/70 97 08/05/16 07:35 21 Intake and Output 08/06/16 08/06/16 08/07/16 08:00 16:00 00:00 Intake Total 480 ml Output Total 300 ml Balance 480 ml -300 ml Physical Examination AAOx3 Speech clear & appropriate Follows commands Sensation decreased to light touch to lower extremities but improved in distal left lower extremity compared to admission. Motor function 4/5 deltoids, 3/5 biceps and triceps,1-2/5 hand intrinsics. Mostly 2/5 proximal and distal lower extremities Ciarra's response positive bilateral No ankle clonus Medical Decision Making Impression and Plan Impression: 1. Severe cervical stenosis 2. Severe cervical myelopathy 3. Hypertension 4. Diabetes 5. History of coronary artery disease 6. UTI. On IV ceftriaxone Plan: Findings discussed with the patient Neurologic exam stable to mildly improved versus admission Check follow-up urinalysis Tentatively plan ACDF on 08/08/16 with planned staged posterior decompression Procedure and treatment plan fully discussed with the patient Risk and possible complications have been discussed including the risk of anesthesia, organ failure, stroke, , bleeding, infection, nerve damage, pain, weakness, numbness, paralysis, loss of bowel, bladder or sexual function, spinal fluid leak, failure of instrumentation or fusion. Consents have been reviewed with the patient. All questions have been answered. She appears to understand the above and wishes to proceed with surgery tomorrow Sav Eddy MD Aug 07, 2016 19:37
[2016-08-07] MEDS: GABAPENTIN 300 MG CAP PO SCH (19:48)
[2016-08-07 20:28] VITALS: BP 119/56; PULSE 58; RESP 20; TEMP 98.5; O2SAT 98
[2016-08-07 23:47] VITALS: BP 113/56; PULSE 63; RESP 18; TEMP 98.9; O2SAT 95
[2016-08-08] MEDS: ACETAMINOPHEN 325 MG TAB PO PRN (01:49)
[2016-08-08 04:17] VITALS: BP 115/56; PULSE 57; RESP 20; TEMP 97.9; O2SAT 98
[2016-08-08] MEDS: DOCUSATE SODIUM 100 MG CAP PO SCH ×2 (06:00→18:00)
[2016-08-08] MEDS: INSULIN ASPART SUPPLEMENTAL SCALE SQ SCH ×2 (06:09→11:00)
[2016-08-08] MEDS: LEVOTHYROXINE SODIUM 50 MCG TAB PO SCH (06:09)
[2016-08-08 07:19] VITALS: BP 132/62; PULSE 57; RESP 20; TEMP 97.5; O2SAT 94
--- NOTE | 2016-08-08 07:19 | HHI.PR ---
Subjective Remarks Follow up for cervical spine stenosis. The patient reports continued generalized weakness, unchanged. Denies any other medical complaints. Denies any chest pain, cough, shortness of breath. Going to OR today. Objective Vitals Vital Signs Date Time Temp Pulse Resp B/P Pulse Ox O2 Delivery O2 Flow Rate FiO2 08/08/16 04:17 97.9 57 20 115/56 98 08/08/16 02:59 16 08/07/16 23:47 98.9 63 18 113/56 95 08/07/16 23:10 16 08/07/16 20:28 98.5 58 20 119/56 98 08/07/16 12:00 98.2 59 18 151/70 97 08/07/16 08:00 98.2 57 18 135/62 100 I/O 08/07/16 08/07/16 08/07/16 08/08/16 08/08/16 08/08/16 07:00 15:00 23:00 07:00 15:00 23:00 Intake Total 360 ml 800 ml Output Total 0 ml Balance 360 ml 800 ml Intake Oral 360 ml 800 ml Stool Total 0 ml # Voids 1 3 # Bowel Movements 1 Result Diagram: 08/02/16 1532 Imaging Last Impressions Thoracic Spine MRI 08/03/1651 Signed Impressions: Service Date/Time: Wednesday, August 03, 2016 11:28 - CONCLUSION: Moderate spinal stenosis at the T10-T11 level. There is minimal anterior wedging of the T12 vertebral body old by MRI. Asad Rajan MD FACR Cervical Spine MRI 08/03/16 0951 Signed Impressions: Service Date/Time: Wednesday, August 03, 2016 11:28 - CONCLUSION: Multilevel cord compression at the C4-5 and C6-7 levels due to a combination of posterior element bony hypertrophy and disc protrusions. The cervical cord is narrowed to 2 mm at C4-5 and to 3 mm at C6-7. There is abnormal signal with in the compressed cord at both levels characterized by T2 prolongation and, at the C4- 5 level, enhancement in the posterior column of the cord. There is also less severe disc disease at other levels in the cervical spine as described above. Juan Beltre MD Head CT 08/02/16 0000 Signed Impressions: Service Date/Time: Tuesday, August 02, 2016 16:14 - CONCLUSION: 1. No acute intracranial abnormality. 2. Opacification of the left ethmoid air cells. Darrell Ashley MD Objective Remarks GENERAL: Well-developed well-nourished elderly female patient in [facility]. SKIN: Warm and dry. No lesions noted. HEENT: Normocephalic. Pupils equal and round. Mucous membranes pink and moist. CARDIOVASCULAR: Regular rate and rhythm. No murmur appreciated. RESPIRATORY: No accessory muscle use. Clear to auscultation. Breath sounds equal bilaterally. GASTROINTESTINAL: Abdomen soft, non-tender, nondistended. Bowel sounds x4. MUSCULOSKELETAL: No obvious deformities. No clubbing or cyanosis. No edema. NEUROLOGICAL: Awake and alert. Lower extremity weakness, left worse than right. Upper extremity weakness with triceps extension. Normal speech. PSYCHIATRIC: Appropriate mood and affect; insight and judgment normal. Medications and IVs Current Medications Medications (Trade) Dose Ordered Sig/Jin Route Start Time Stop Time Status Last Admin (NS Flush) 2 ml UNSCH PRN IV FLUSH 08/02/16 17:00 (NS Flush) 2 ml BID IV FLUSH 08/02/16 21:00 08/07/16 19:47 (Tylenol) 650 mg Q4H PRN PO 08/02/16 17:00 08/08/16 01:49 (Zofran Inj) 4 mg Q6H PRN IVP 08/02/16 17:00 (Colace) 100 mg Q12H PO 08/02/16 18:00 08/07/16 17:07 (Milk Of Magnesia Liq) 30 ml Q12H PRN PO 08/02/16 17:00 (Restoril) 15 mg HS PRN PO 08/02/16 21:00 (Lovenox Inj) 40 mg Q24H SQ 08/02/16 18:00 Hold 08/06/16 17:34 (Tessalon) 100 mg TID PRN PO 08/03/16 00:30 (Zetia) 10 mg DAILY PO 08/03/16 09:00 08/07/16 09:45 (Neurontin) 300 mg HS PO 08/03/16 21:00 08/07/16 19:48 (Synthroid) 50 mcg DAILY@07 PO 08/03/16 07:00 08/08/16 06:09 (Detrol La) 4 mg DAILY PO 08/03/16 09:00 08/07/16 09:46 (Diovan) 160 mg DAILY PO 08/03/16 09:00 08/07/16 09:44 (Ferrous Sulfate) 325 mg DAILY PO 08/03/16 09:00 08/07/16 09:46 (Prinivil) 40 mg DAILY PO 08/03/16 09:00 08/07/16 09:45 (Ultram) 50 mg Q8H PRN PO 08/03/16 00:45 08/07/16 22:06 (D50w (Vial) Inj) 25 ml UNSCH PRN IV PUSH 08/03/16 17:00 (Glucagon Inj) 1 mg UNSCH PRN OTHER 08/03/16 17:00 (Coreg) 12.5 mg BID PO 08/04/16 21:00 08/07/16 19:47 (Procardia Xl) 90 mg DAILY PO 08/07/16 09:00 08/07/16 09:45 A/P Problem List: (1) CIDP (chronic inflammatory demyelinating polyneuropathy) ICD Code: G61.81 Status: Acute (2) Leg weakness, bilateral ICD Code: R29.898 Status: Acute (3) UTI (urinary tract infection) ICD Code: N39.0 Status: Acute (4) HTN (hypertension) ICD Code: I10 Status: Acute Assessment and Plan Ms. Meyers is an 81 year-old female who presented to the emergency room on 08/02 after being seen by her neurologist Dr. Mack in [place] for progressively worsening weakness in lower legs over the past 7 months. Patient is currently unable to walk. Progressive bilateral lower extremity weakness with Cervical Spinal Stenosis, initially concern for CIDP per patients neurologist, - Per Dr. Mack's documentation (follow up office note dated 08/02/16-copy on chart), lumbar puncture showed elevated protein in the CSF. - Consulted neurology, Dr. Che ordered MRI, MRI showed severe multilevel cord compression due to spinal stenosis and disk bulging - Consulted Dr. Eddy, planning for operative intervention on 08/08 - Tramadol as needed for pain UTI Urine culture growing Escherichia coli sensitive to ceftriaxone. Patient has received IV ceftriaxone 4 days -Treated, DC antibiotics Hypertension: Uncontrolled, better currently - Continued home lisinopril, carvedilol, and valsartan - Monitor blood pressure trends and adjust treatments as indicated - provide pain management PRN - Started on nifedipine, titrated dose to 90 mg daily Diabetes mellitus, reasonably controlled -Accu checks with SSI DVT prophylaxis - Lovenox on hold pending surgery - SCDs Written by Gricelda Chaves, acting as scribe for Dr. Pyle on 08/08/16 at 08:30 This note was transcribed by scribe Gricelda GHOTRA. I, Dr. Michelle Pyle personally performed the history, physical exam, and medical decision making; and confirmed the accuracy of the information in the transcribed note. Authenticated by Dr. Michelle Pyle on 08/08/16 at 08:30 Problem Qualifiers (1) UTI (urinary tract infection): Qualified Code: N30.00 - Acute cystitis without hematuria (2) HTN (hypertension): Qualified Code: I10 - Essential hypertension Gricelda Chaves PA-C Aug 08, 2016 07:19 Michelle Pyle MD Aug 08, 2016 17:43
[2016-08-08] MEDS ORDERED: PROPOFOL 200 MG/20 ML AMP IV ONE (07:56)
[2016-08-08] MEDS ORDERED: ePHEDrine/NS 25 MG/5 ML SYR IV ONE (07:58)
[2016-08-08] MEDS ORDERED: NEOSTIGMINE 3 MG/3 ML SYR IV ONE (08:00)
[2016-08-08] MEDS ORDERED: ONDANSETRON HCL 4 MG/2 ML VIAL IV PUSH ONE (08:00)
[2016-08-08] MEDS ORDERED: LACTATED RINGER'S 1000 ML INJ 2,000 ML IV ONE (08:03)
[2016-08-08] MEDS: SODIUM CHLORIDE 0.9% FLUSH 10 ML FLUSH IV FLUSH SCH ×2 (08:21→21:00)
[2016-08-08] MEDS: EZETIMIBE 10 MG TAB PO SCH (08:22)
[2016-08-08] MEDS: NIFEdipine 90 MG SUSTAINED RELEASE TAB PO SCH (08:22)
[2016-08-08] MEDS: FERROUS SULFATE 325 MG (65 MG ELEMENTAL IRON) TAB PO SCH (08:22)
[2016-08-08] MEDS: TOLTERODINE TARTRATE 4 MG CAP LA PO SCH (08:22)
[2016-08-08] MEDS: VALSARTAN 160 MG TAB PO SCH (08:22)
[2016-08-08] MEDS: CARVEDILOL 12.5 MG TAB PO SCH (08:22)
[2016-08-08] MEDS: LISINOPRIL 20 MG TAB PO SCH (08:27)
--- NOTE | 2016-08-08 08:30 | HHI.PR ---
Objective Vital Signs Date Time Temp Pulse Resp B/P Pulse Ox O2 Delivery O2 Flow Rate FiO2 08/08/16 07:19 97.5 57 20 132/62 94 08/08/16 04:17 97.9 57 20 115/56 98 08/08/16 02:59 16 08/07/16 23:47 98.9 63 18 113/56 95 08/07/16 23:10 16 08/07/16 20:28 98.5 58 20 119/56 98 08/07/16 12:00 98.2 59 18 151/70 97 I/O 08/07/16 08/07/16 08/07/16 08/08/16 08/08/16 08/08/16 07:00 15:00 23:00 07:00 15:00 23:00 Intake Total 360 ml 800 ml Output Total 0 ml Balance 360 ml 800 ml Intake Oral 360 ml 800 ml Stool Total 0 ml # Voids 1 3 # Bowel Movements 1 Result Diagram: 08/02/16 1532 Objective Remarks no change good bicep and weak below that tricep 4-/5 today bilat 4- bilat ta can lift r knee up a little and better than left Assessment and Plan Assessment and Plan imp cervical myelopathy nuzenaida on case for or uti and bp control by med team T cord mass effect on that also defer to cornelius i dw them stable neuro better bp control done for or today Sriram Remy MD Aug 08, 2016 08:30
[2016-08-08 09:16] LABS: BLOOD, URINE NEG (NEG); COMMENT (UR) CATH-CULTURE IND; CULTURE IF INDICATED CATH CULTURE IND; GLUCOSE,URINE NEG (NEG); HYALINE CAST, URINE 5 /lpf (RARE); KETONE, URINE NEG (NEG); NITRITE,URINE NEG (NEG); PH, URINE 5.5 (5.0-8.5); SQUAMOUS EPITHELIAL CELL URINE 2 /hpf (0-5); URINE COLOR YELLOW (YELLW/STRAW)
[2016-08-08] MEDS ORDERED: FAMOTIDINE 20 MG/2 ML VIAL ONE (10:29)
[2016-08-08] MEDS ORDERED: fentaNYL CITRATE 250 MCG/5 ML AMP ONE ×3 (10:31→14:50)
[2016-08-08] MEDS ORDERED: MIDAZOLAM HCL 2 MG/2 ML VIAL ONE (10:32)
[2016-08-08] MEDS ORDERED: GENTAMICIN SULFATE 80 MG/2 ML VIAL ONE (10:52)
[2016-08-08] MEDS ORDERED: LIDOCAINE 1%/EPINEPHrine 1:100,000 SOLN 20 ML VIAL ONE (10:52)
[2016-08-08] MEDS ORDERED: THROMBIN (TOPICAL) 5,000 UNIT VIAL ONE ×2 (10:52→13:55)
[2016-08-08] MEDS ORDERED: GELFOAM SIZE 100 ONE (10:52)
[2016-08-08] MEDS ORDERED: ceFAZolin INJ 1,000 MG VIAL IV ONE (11:51)
[2016-08-08] MEDS ORDERED: ACETAMINOPHEN 1000 MG/100 ML VIAL IV ONE (13:38)
[2016-08-08] MEDS ORDERED: NALOXONE HCL 0.4 MG/ML AMP IV PRN (16:00)
--- NOTE | 2016-08-08 16:07 | PD.OP ---
Operative Report Date of Surgery: Aug 08, 2016 Preoperative Diagnosis: (1) Cervical disc disease with myelopathy (2) Cervical spinal stenosis 1. Severe canal stenosis at C4 5 and C6 7 levels 2. Severe Cervical myelopathy Postoperative Diagnosis: (1) Cervical disc disease with myelopathy (2) Cervical spinal stenosis 1. Severe canal stenosis at C4 5 and C6 7 levels 2. Severe Cervical myelopathy Procedure: 1. C4 5 and C6 7 anterior cervical discectomy, resection herniated nucleus pulposus and posterior osteophytic disc complexes-microtechnique 2. C4 5 and C6 7 anterior interbody fusion with composite allograft bone 3. C4 5 and C6 7 anterior cervical instrumentation Anesthesia: Gen. Surgeon: Sav Eddy Voltage Regulator Assembler(s): Indira Ervin Operation and Findings: Procedure in detail: The patient was brought into the operating room and positioned in supine position on the 3080 table with the head and neck in neutral position. Rojas catheter was placed. Lines were established by Anesthesia. Gen. endotracheal anesthesia was induced without difficulty, taking care not to significantly flex or extend the patient's neck during intubation and positioning. Leads for intraoperative neuro monitoring were placed and a baseline study obtained. All extremities were appropriately padded. The neck and upper chest were shaved with clippers and sterilely prepped and draped. Appropriate timeout procedure was performed with all personnel present and in agreement 1% Xylocaine with epinephrine was used for local infiltration over the incision site which was made transversely at the left C5-6 level and carried sharply down through the platysma muscle. The exposure was continued medial to the sternocleidomastoid muscle and carotid artery, and lateral to the trachea and esophagus. The prevertebral fascia was elevated away from the anterior longitudinal ligament with a Kitner sponge. The longus coli muscle on each side was elevated with the Hines elevator. The self-retaining retractor was placed with the blades beneath the longus coli muscle on each side. The appropriate levels were confirmed with intraoperative C-arm and preoperative imaging studies. The microscope was brought into place and used for the remainder of the procedure including the closure. The 14 mm distraction pins were used as needed for gentle distraction during the procedure. The procedure was performed sequentially at the C4 5 and then the C6 7 levels. At each level the anterior osteophyte was resected with the Leksell rongeur. The disc and annulus was incised with a 15 blade knife and discectomy performed with pituitary biopsy forceps and straight and angled curettes. The TPS drill with the 5 mm barrel bur was used to decorticate the endplates and removed the majority of the osteophyte along the anterior spinal canal as well as the right and left uncovertebral joint. The thin ligament dissector was used to free up the posterior annulus and ligament from the vertebral body margin. The remainder of the resection of the posterior annulus and ligament as well as the posterior osteophyte and bilateral uncovertebral joint was performed with the 2 and 3 mm thin footplate Kerrison rongeurs. A rather large component of herniated nucleus pulposus as well as posterior osteophytic disc complex and hypertrophied ligament was encountered posterior to the annulus at each level and was lifted away from the thecal sac with the thickened ligament dissector and removed. Significant posterior osteophyte was encountered and extensively removed. The posterior vertebral bodies were undercut with the Kerrison rongeur and the TPS drill with the 4 mm shonna bur as needed to fully decompress the anterior spinal canal. The appropriate size V G2 bone graft was then placed at each level with a good fit of the graft. The blunt nerve hook was used to probe beneath the bone graft to ensure that there was no impingement on the thecal sac or exiting nerve roots. The appropriate size Precision anterior cervical plate was then chosen and the bone screws were placed with the 14 mm fixed screws at the caudal most level and the 14 mm variable screws at the cephalad level of the decompression at the C4 5 and C6 7 levels. The screws were firmly secured and the locking cams engaged. The entire construct was checked with intraoperative C-arm and felt to be satisfactory. The 10 Bulgarian drain was brought out through a small incision in the left lower neck and secured to the skin with nylon suture and attached to sterile suction. The closure was performed with 3-0 Vicryl running for the platysma and interrupted for the subcutaneous closure, with 4-0 Vicryl running for the subcuticular closure. A dressing of sterile Mastisol, Steri-Strips, and Primapore dressing was placed. The patient was placed into a cervical collar, and taken to recovery room in stable condition. All counts were correct at the end of the case. Estimated blood loss was 600cc No specimen was sent to pathology. Intraoperative neuro monitoring remained stable during the procedure. Sav Eddy MD Aug 08, 2016 16:07
[2016-08-08 16:23] LABS: AUTOMATED NEUTROPHIL # 4.6 TH/MM3 (1.8-7.7); BASOPHIL % 0.8 % (0.0-2.0); EOSINOPHIL % 0.4 % (0.0-4.0); HEMATOCRIT 29.7 % (35.0-46.0); HEMO FLAGS DIFF FINAL; LYMPHOCYTE # 0.9 TH/MM3 (1.0-4.8); MEAN CELL VOLUME 87.3 FL (80.0-100.0); MEAN CORPUSCULAR HEMOGLOBIN 29.8 PG (27.0-34.0); MEAN CORPUSCULAR HGB CONC 34.2 % (32.0-36.0); MONO % 1.5 % (0.0-8.0); NEUT % 81.3 % (16.0-70.0); PLATELET COUNT 174 TH/MM3 (150-450); RED BLOOD COUNT 3.41 MIL/MM3 (4.00-5.30); RED CELL DISTRIBUTION WIDTH 14.1 % (11.6-17.2); WHITE BLOOD COUNT 5.7 TH/MM3 (4.0-11.0)
--- NOTE | 2016-08-08 16:30 | RADRPT ---
EXAM DATE/TIME: 08/08/2016 11:51 [place] COMPARISON: No previous studies available for comparison. INDICATIONS : Cervical spine C4-5 C6-7 anterior discectomy and fusion. OR. MEDICAL HISTORY : Diabetes mellitus type II. Hypertension SURGICAL HISTORY : CABG. Fusion, lumbar. ENCOUNTER: Initial ACUITY: 1 day PAIN SCORE: Non-responsive. LOCATION: Cervical spine C4-5 C6-7 FINDINGS: AP and lateral views of the cervical spine were obtained and demonstrate the patient status post ante rior cervical fusion at the C4-5 level with anterior screw-plate fixation device and bone grafting ma terial in the interspace. Patient is also status post anterior fusion at the C6-7 level with anterior screw-plate fixation device. There is poor detail in this region on the lateral exam. CONCLUSION: Status post anterior cervical fusion at the C4-5 and C6-7 levels. Shaheed Braxton MD on August 08, 2016 at 16:27 Board Certified Radiologist. This report was verified electronically.
[2016-08-08] MEDS ORDERED: DO NOT ADM ANY ANTICOAGULANT DRUGS PRN (17:15)
[2016-08-08] MEDS ORDERED: *morphine SULFATE 8 MG/ML PERIprocedure ONLY ONE (17:39)
[2016-08-08] MEDS: MORPHINE SULFATE 4 MG/ML INJ IV PRN (19:21)
[2016-08-08 19:54] LABS: REVIEW FLAG FINAL
[2016-08-08 19:57] LABS: APTT (PATIENT) 31.2 SEC (24.3-30.1); PROTHROMBIN TIME - PATIENT 10.6 SEC (9.8-11.6)
[2016-08-08 20:19] LABS: BICARBONATE 27.7 MEQ/L (21.0-32.0)
[2016-08-08 20:20] LABS: POTASSIUM 5.2 MEQ/L (3.5-5.1)
[2016-08-09] MEDS: GABAPENTIN 300 MG CAP PO SCH ×2 (00:34→22:10)
[2016-08-09] MEDS: CARVEDILOL 12.5 MG TAB PO SCH ×3 (00:34→22:10)
[2016-08-09] MEDS: HYDROmorphone HCL PF 1 MG/ML VIAL IV PRN ×3 (00:35→22:12)
[2016-08-09 02:04] VITALS: BP 142/64; PULSE 72; RESP 20; TEMP 97.6; O2SAT 98
[2016-08-09 05:58] VITALS: BP 128/55; PULSE 68; RESP 20; TEMP 96.9; O2SAT 97
[2016-08-09] MEDS: DOCUSATE SODIUM 100 MG CAP PO SCH ×2 (06:00→19:24)
[2016-08-09] MEDS: LEVOTHYROXINE SODIUM 50 MCG TAB PO SCH (07:03)
[2016-08-09] MEDS: SODIUM CHLORIDE 0.9% FLUSH 10 ML FLUSH IV FLUSH PRN (07:04)
[2016-08-09] MEDS: MORPHINE SULFATE 4 MG/ML INJ IV PRN (07:04)
[2016-08-09 07:47] LABS: AUTOMATED NEUTROPHIL # 6.4 TH/MM3 (1.8-7.7); BASOPHIL % 0.5 % (0.0-2.0); EOSINOPHIL % 0.1 % (0.0-4.0); HEMATOCRIT 34.1 % (35.0-46.0); HEMO FLAGS DIFF FINAL; LYMPH % 17.1 % (9.0-44.0); LYMPHOCYTE # 1.5 TH/MM3 (1.0-4.8); MEAN CELL VOLUME 88.6 FL (80.0-100.0); MEAN CORPUSCULAR HEMOGLOBIN 29.6 PG (27.0-34.0); MEAN CORPUSCULAR HGB CONC 33.5 % (32.0-36.0); MONO % 7.5 % (0.0-8.0); NEUT % 74.8 % (16.0-70.0); PLATELET COUNT 173 TH/MM3 (150-450); RED BLOOD COUNT 3.85 MIL/MM3 (4.00-5.30); RED CELL DISTRIBUTION WIDTH 14.2 % (11.6-17.2); WHITE BLOOD COUNT 8.5 TH/MM3 (4.0-11.0)
[2016-08-09 07:49] VITALS: BP 114/52; PULSE 63; RESP 17; TEMP 96.6; O2SAT 99
[2016-08-09 07:52] LABS: APTT (PATIENT) 28.7 SEC (24.3-30.1); PROTHROMBIN TIME - PATIENT 10.7 SEC (9.8-11.6)
[2016-08-09 08:04] LABS: BICARBONATE 27.3 MEQ/L (21.0-32.0); POTASSIUM 5.1 MEQ/L (3.5-5.1)
[2016-08-09] MEDS ORDERED: methylPREDNISolone SOD SUCC 125 MG/2 ML VIAL IV PUSH ONE (08:45)
[2016-08-09] MEDS: NIFEdipine 90 MG SUSTAINED RELEASE TAB PO SCH (09:00)
[2016-08-09] MEDS: VALSARTAN 160 MG TAB PO SCH (09:00)
[2016-08-09] MEDS: LISINOPRIL 20 MG TAB PO SCH (09:00)
[2016-08-09] MEDS: FERROUS SULFATE 325 MG (65 MG ELEMENTAL IRON) TAB PO SCH (09:14)
[2016-08-09] MEDS: TOLTERODINE TARTRATE 4 MG CAP LA PO SCH (09:14)
[2016-08-09] MEDS: EZETIMIBE 10 MG TAB PO SCH (09:17)
[2016-08-09] MEDS: SODIUM CHLORIDE 0.9% FLUSH 10 ML FLUSH IV FLUSH SCH ×2 (09:19→22:11)
[2016-08-09] MEDS: INSULIN ASPART SUPPLEMENTAL SCALE SQ SCH ×3 (11:00→22:11)
[2016-08-09 11:39] VITALS: BP 153/55; PULSE 66; RESP 17; TEMP 97; O2SAT 100
--- NOTE | 2016-08-09 11:42 | HHI.NSPN ---
(Jeff Talbert) Note Status Status: Progress Note (Jeff Talbert) Interval History Interval History 08/03: 81-year-old female with history of previous low back surgery in 1994 for treatment of low back and lower extremity pain symptoms. She initially did very well following surgery for many years. Approximately 7 months ago she developed onset of progressive gait difficulty, severe enough to require her to start using a walker. By approximate 3-4 months ago she continued to experience further progressive gait difficulty and started falling even despite the walker, as well as onset of numbness and weakness in her hands with loss of upper extremity coordination. At that time she had to start using a wheelchair to mobilize. She was seen for further medical evaluation and indicates no further testing was done. She subsequently was seen at [facility] approximately 3 months ago and was admitted for 3 days. She is uncertain whether an MRI was done. She was subsequently discharged to inpatient rehabilitation at [facility] where she has remained for the past 3 months. She has had recent outpatient evaluation with neurology. She indicates that follow-up visit with her primary care physician recently prompted a visit to the emergency room yesterday. 08/04: Patient states she is doing well this afternoon when seen. Pain is controlled with medication and rates it a 2 out of 10. Still with numbness, tingling and weakness to the extremities. 08/05: Patient states she is doing good this morning, pain is controlled with meds, some improvement in numbness & tingling. 08/08: Patient to OR for ACDF C4-5 & C6-7 levels. 08/09: POD # 1, patient states that she has a sore throat and pain at the surgical incision. She denies any neck pain. She stated she swelled up and had difficulty breathing due to steroids which she is allergic to. It has improved after having received medication for it per the patient. Patient did receive Solumedrol this morning but no other medications expected for an allergic reaction. (Jeff Talbert) Labs, Micro, & Vital Signs Results Allergies Coded Allergies Type Severity Reaction Last Updated Verified Neosporin Allergy Severe Shortness of Breath 08/09/16 Yes Recent Impressions Cervical Spine X-Ray 08/08/16 0000 Signed Impressions: Service Date/Time: Monday, August 08, 2016 11:51 - CONCLUSION: Status post anterior cervical fusion at the C4-5 and C6-7 levels. Shaheed Braxton MD /// 06:00 18:00 06:00 18:00 06:00 18:00 Intake Total 360 ml 800 ml 2250 ml 125 ml Output Total 300 ml 0 ml 1030 ml 180 ml Balance -300 ml 360 ml 800 ml 1220 ml -55 ml Intake Oral 360 ml 800 ml IV Total 200 ml 125 ml Packed Cells 250 ml Other 1800 ml Output Urine Total 300 ml 430 ml 180 ml Stool Total 0 ml Estimated Blood Loss 600 ml # Voids 1 3 # Bowel Movements 1 Laboratory Tests Test 08/08/16 08/08/16 08/08/16 08/08/16 01:25 08:50 15:56 15:57 Blood Type O POSITIVE O POSITIVE Antibody Screen NEGATIVE Crossmatch Leukocyte-Reduced Red Blood Cells Blood Bank Comment Urine Color YELLOW Urine Turbidity HAZY Urine pH 5.5 Urine Specific Robinson 1.009 Urine Protein 100 mg/dL Urine Glucose (UA) NEG mg/dL Urine Ketones NEG mg/dL Urine Occult Blood NEG Urine Nitrite NEG Urine Bilirubin NEG Urine Urobilinogen LESS THAN 2.0 MG/DL Urine Leukocyte Esterase TRACE Urine RBC 1 /hpf Urine WBC 9 /hpf Urine WBC Clumps RARE Urine Squamous Epithelial 2 /hpf Cells Urine Hyaline Casts 5 /lpf Microscopic Urinalysis Comment CATH-CULTURE IND White Blood Count 5.7 TH/MM3 Red Blood Count 3.41 MIL/MM3 Hemoglobin 10.2 GM/DL Hematocrit 29.7 % Mean Corpuscular Volume 87.3 FL Mean Corpuscular Hemoglobin 29.8 PG Mean Corpuscular Hemoglobin 34.2 % Concent Red Cell Distribution Width 14.1 % Platelet Count 174 TH/MM3 Mean Platelet Volume 9.8 FL Neutrophils (%) (Auto) 81.3 % Lymphocytes (%) (Auto) 16.0 % Monocytes (%) (Auto) 1.5 % Eosinophils (%) (Auto) 0.4 % Basophils (%) (Auto) 0.8 % Neutrophils # (Auto) 4.6 TH/MM3 Lymphocytes # (Auto) 0.9 TH/MM3 Monocytes # (Auto) 0.1 TH/MM3 Eosinophils # (Auto) 0.0 TH/MM3 Basophils # (Auto) 0.0 TH/MM3 CBC Comment DIFF FINAL Differential Comment Test 08/08/16 08/09/16 19:20 06:40 Hemoglobin 12.4 GM/DL 11.4 GM/DL Hematocrit 36.0 % 34.1 % Prothrombin Time 10.6 SEC 10.7 SEC Prothromb Time International 1.0 RATIO 1.0 RATIO Ratio Activated Partial 31.2 SEC 28.7 SEC Thromboplast Time Sodium Level 134 MEQ/L 136 MEQ/L Potassium Level 5.2 MEQ/L 5.1 MEQ/L Chloride Level 101 MEQ/L 101 MEQ/L Carbon Dioxide Level 27.7 MEQ/L 27.3 MEQ/L Anion Gap 5 MEQ/L 8 MEQ/L Blood Urea Nitrogen 22 MG/DL 25 MG/DL Creatinine 0.91 MG/DL 0.89 MG/DL Estimat Glomerular Filtration 59 ML/MIN 61 ML/MIN Rate Random Glucose 182 MG/DL 121 MG/DL Calcium Level 9.1 MG/DL 8.9 MG/DL White Blood Count 8.5 TH/MM3 Red Blood Count 3.85 MIL/MM3 Mean Corpuscular Volume 88.6 FL Mean Corpuscular Hemoglobin 29.6 PG Mean Corpuscular Hemoglobin 33.5 % Concent Red Cell Distribution Width 14.2 % Platelet Count 173 TH/MM3 Mean Platelet Volume 10.2 FL Neutrophils (%) (Auto) 74.8 % Lymphocytes (%) (Auto) 17.1 % Monocytes (%) (Auto) 7.5 % Eosinophils (%) (Auto) 0.1 % Basophils (%) (Auto) 0.5 % Neutrophils # (Auto) 6.4 TH/MM3 Lymphocytes # (Auto) 1.5 TH/MM3 Monocytes # (Auto) 0.6 TH/MM3 Eosinophils # (Auto) 0.0 TH/MM3 Basophils # (Auto) 0.0 TH/MM3 CBC Comment DIFF FINAL Differential Comment Constitutional Vital Signs Date Time Temp Pulse Resp B/P Pulse Ox O2 Delivery O2 Flow Rate FiO2 08/09/16 07:49 96.6 63 17 114/52 99 08/09/16 05:58 96.9 68 20 128/55 97 08/09/16 02:04 97.6 72 20 142/64 98 08/08/16 22:01 67 15 166/71 99 Nasal Cannula 2 08/08/16 19:26 14 08/08/16 19:00 63 15 170/70 99 Nasal Cannula 2 08/08/16 18:30 61 15 173/71 99 Nasal Cannula 2 08/08/16 18:15 59 15 164/68 99 Nasal Cannula 2 08/08/16 18:00 59 15 177/67 99 Nasal Cannula 2 08/08/16 17:45 59 15 173/69 99 Nasal Cannula 2 08/08/16 17:30 58 14 176/69 99 Nasal Cannula 2 08/08/16 17:15 57 14 177/68 99 Nasal Cannula 3 08/08/16 17:00 59 14 175/60 99 Nasal Cannula 3 08/08/16 16:45 70 14 164/65 99 Nasal Cannula 3 08/08/16 16:30 59 14 151/69 99 Nasal Cannula 3 08/08/16 16:15 71 14 161/64 99 Nasal Cannula 3 08/08/16 16:08 98.2 61 14 169/67 99 Nasal Cannula 3 08/09/16 07:00 Intake Total 2375 ml Output Total 1210 ml Balance 1165 ml (Jeff Talbert) Review of Systems/Exam ROS Neuro: Still with numbness & weakness to the extremities. Denies any headache or dizziness. Resp: Some shortness of breath this morning but it has resolved. Cardiac: Denies any chest pain, palpitations or irregular heart rate. GI: Denies any abdominal pain, nausea, vomiting or bowel incontinence. : Denies any urinary incontinence. MS: Denies any arm or leg pain. Exam Neck: Leeds J cervical collar in place, intact left anterior surgical dressing w /o any shadowing on it, RUSTY drain to bulb suction w/sanguinous drainage. Resp: CTAB w/o W/R/R but decreased, eual excursion, non-laboured, on NC. CV: S1S2 w/RRR w/o M/G/R, cap refill < 2 sec, radial & pedal pulses 2+, dependent edema 2+ to distal extremities. GI: Abdomen soft, nontender, no bowel sounds appreciated. : Rojas catheter to BSD w/clear yellow urine. Neuro: AAOx3. Speech clear & appropriate. Follows commands. Decreased sensation to light touch to extremities but improved per patient. Motor function 4/5 RUE, 3+/5 LUE, except for hand intrinsics & extensors 2/5 on right & 1/5 on left, BLE 1-2/5 although knee flexion 4/5. (Jeff Talbert) Medications Current Medications Current Medications Medications (Trade) Dose Ordered Sig/Jin Route Start Time Stop Time Status Last Admin (NS Flush) 2 ml UNSCH PRN IV FLUSH 08/02/16 17:00 08/09/16 07:04 (NS Flush) 2 ml BID IV FLUSH 08/02/16 21:00 08/09/16 09:19 (Tylenol) 650 mg Q4H PRN PO 08/02/16 17:00 08/08/16 01:49 (Zofran Inj) 4 mg Q6H PRN IVP 08/02/16 17:00 (Colace) 100 mg Q12H PO 08/02/16 18:00 08/09/16 06:00 (Milk Of Magnesia Liq) 30 ml Q12H PRN PO 08/02/16 17:00 (Restoril) 15 mg HS PRN PO 08/02/16 21:00 (Lovenox Inj) 40 mg Q24H SQ 08/02/16 18:00 Hold 08/06/16 17:34 (Tessalon) 100 mg TID PRN PO 08/03/16 00:30 (Zetia) 10 mg DAILY PO 08/03/16 09:00 08/09/16 09:17 (Neurontin) 300 mg HS PO 08/03/16 21:00 08/09/16 00:34 (Synthroid) 50 mcg DAILY@07 PO 08/03/16 07:00 08/09/16 07:03 (Detrol La) 4 mg DAILY PO 08/03/16 09:00 08/09/16 09:14 (Diovan) 160 mg DAILY PO 08/03/16 09:00 08/08/16 08:22 (Ferrous Sulfate) 325 mg DAILY PO 08/03/16 09:00 08/09/16 09:14 (Prinivil) 40 mg DAILY PO 08/03/16 09:00 08/08/16 08:27 (Ultram) 50 mg Q8H PRN PO 08/03/16 00:45 08/07/16 22:06 (D50w (Vial) Inj) 25 ml UNSCH PRN IV PUSH 08/03/16 17:00 (Glucagon Inj) 1 mg UNSCH PRN OTHER 08/03/16 17:00 (Coreg) 12.5 mg BID PO 08/04/16 21:00 08/09/16 00:34 (Procardia Xl) 90 mg DAILY PO 08/07/16 09:00 08/08/16 08:22 (Dilaudid Pf Inj) 0.5 mg Q3H PRN IV 08/08/16 16:00 08/09/16 00:35 (Narcan Inj) 0.4 mg UNSCH PRN IV 08/08/16 16:00 Miscellaneous Information ALL NURSING DEPARTME... UNSCH PRN .XX 08/08/16 17:15 08/09/16 17:14 (Jeff Talbert) Medical Decision Making MDM Remarks 1. POD # 1 s/p ACDF C4-5 & C6-7 levels, improved sensation, motor function slightly improved or stable except for hand intrinsics & extensors seem weaker a. Severe cervical stenosis b. Severe cervical myelopathy 2. Hypertension 3. Diabetes 4. History of coronary artery disease 5. Escherichia coli UTI, treated (Jeff Talbert) Plan Plan Remarks 1. Continue Leeds J cervical collar 2. Probable posterior cervical diskectomy & fusion on . A. Plan for MRI cerivical spine after ACDF to determine need for posterior approach. 3. ST for swallow eval pending 4. PT & OT evals pending 5. MRI cervical spine in AM 6. Continue neuro checks 7. Tx UTI per primary team. 8. Blood pressure control per primary team. (Jeff Talbert) Attending Statement I have personally seen and examined the patient on the date of this note. Pertinent documentation and study results have been reviewed by the undersigned. I have personally developed the treatment plan and performed medical decision making. Agree with findings, exam, and treatment plan as noted above. Neurologic exam stable postop Check postop MRI cervical spine to assess for adequate anterior cord compression and need for possible posterior procedure. Discussed with patient (Sav Eddy MD) NitishIsmaJeffashtyn DANGELO Aug 09, 2016 11:42 Sav Eddy MD Aug 10, 2016 00:09
--- NOTE | 2016-08-09 13:47 | HHI.PR ---
Subjective Remarks Follow-up for cervical myelopathy, POD 1. The patient received morphine earlier today and afterwards began having throat swelling and shortness of breath. The patient states that the shortness breath and throat swelling improved with IV Solu-Medrol. She still complains of some difficulty swallowing , had swallow evaluation with speech therapy today. She states that she had morphine in the past and has never had a reaction like that before. She didn't have any problems taking tramadol prior to the surgery. She had a BM yesterday. Objective Vitals Vital Signs Date Time Temp Pulse Resp B/P Pulse Ox O2 Delivery O2 Flow Rate FiO2 08/09/16 11:39 97.0 66 17 153/55 100 08/09/16 07:49 96.6 63 17 114/52 99 08/09/16 05:58 96.9 68 20 128/55 97 08/09/16 02:04 97.6 72 20 142/64 98 08/08/16 22:01 67 15 166/71 99 Nasal Cannula 2 08/08/16 19:26 14 08/08/16 19:00 63 15 170/70 99 Nasal Cannula 2 08/08/16 18:30 61 15 173/71 99 Nasal Cannula 2 08/08/16 18:15 59 15 164/68 99 Nasal Cannula 2 08/08/16 18:00 59 15 177/67 99 Nasal Cannula 2 08/08/16 17:45 59 15 173/69 99 Nasal Cannula 2 08/08/16 17:30 58 14 176/69 99 Nasal Cannula 2 08/08/16 17:15 57 14 177/68 99 Nasal Cannula 3 08/08/16 17:00 59 14 175/60 99 Nasal Cannula 3 08/08/16 16:45 70 14 164/65 99 Nasal Cannula 3 08/08/16 16:30 59 14 151/69 99 Nasal Cannula 3 08/08/16 16:15 71 14 161/64 99 Nasal Cannula 3 08/08/16 16:08 98.2 61 14 169/67 99 Nasal Cannula 3 I/O 08/08/16 08/08/16 08/08/16 08/09/16 08/09/16 08/09/16 07:00 15:00 23:00 07:00 15:00 23:00 Intake Total 2375 ml Output Total 1130 ml 80 ml Balance 1245 ml -80 ml IV Total 325 ml Packed Cells 250 ml Other 1800 ml Output Urine Total 530 ml 80 ml Estimated Blood Loss 600 ml Result Diagram: 08/09/1640 08/09/1640 Imaging Last Impressions Cervical Spine X-Ray 08/08/16 0000 Signed Impressions: Service Date/Time: Monday, August 08, 2016 11:51 - CONCLUSION: Status post anterior cervical fusion at the C4-5 and C6-7 levels. Shaheed Braxton MD Thoracic Spine MRI 08/03/1651 Signed Impressions: Service Date/Time: Wednesday, August 03, 2016 11:28 - CONCLUSION: Moderate spinal stenosis at the T10-T11 level. There is minimal anterior wedging of the T12 vertebral body old by MRI. Asad Rajan MD FACR Cervical Spine MRI 08/03/1651 Signed Impressions: Service Date/Time: Wednesday, August 03, 2016 11:28 - CONCLUSION: Multilevel cord compression at the C4-5 and C6-7 levels due to a combination of posterior element bony hypertrophy and disc protrusions. The cervical cord is narrowed to 2 mm at C4-5 and to 3 mm at C6-7. There is abnormal signal with in the compressed cord at both levels characterized by T2 prolongation and, at the C4- 5 level, enhancement in the posterior column of the cord. There is also less severe disc disease at other levels in the cervical spine as described above. Juan Beltre MD Head CT 08/02/16 0000 Signed Impressions: Service Date/Time: Tuesday, August 02, 2016 16:14 - CONCLUSION: 1. No acute intracranial abnormality. 2. Opacification of the left ethmoid air cells. Darrell Ashley MD Objective Remarks GENERAL: Well-developed well-nourished. In no acute distress. Cervical collar in place. Neck with surgical dressing and drain in place. SKIN: Warm and dry. No lesions noted. HEENT: Normocephalic. Pupils equal and round. Mucous membranes pink and moist. CARDIOVASCULAR: Regular rate and rhythm. No murmur appreciated. RESPIRATORY: No accessory muscle use. Clear to auscultation. Breath sounds equal bilaterally. GASTROINTESTINAL: Abdomen soft, non-tender, nondistended. Bowel sounds x4. MUSCULOSKELETAL: No obvious deformities. No clubbing or cyanosis. No edema. NEUROLOGICAL: Awake and alert. Continued upper extremity weakness with triceps extension and lower extremity weakness. Normal speech. PSYCHIATRIC: Appropriate mood and affect; insight and judgment normal. A/P Problem List: (1) CIDP (chronic inflammatory demyelinating polyneuropathy) ICD Code: G61.81 Status: Acute (2) Leg weakness, bilateral ICD Code: R29.898 Status: Acute (3) UTI (urinary tract infection) ICD Code: N39.0 Status: Acute (4) HTN (hypertension) ICD Code: I10 Status: Acute Assessment and Plan Ms. Meyers is an 81 year-old female who presented to the emergency room on 08/02 after being seen by her neurologist Dr. Mack in [place] for progressively worsening weakness in lower legs over the past 7 months. Patient is currently unable to walk. Cervical spinal stenosis with progressive bilateral lower extremity weakness - Per Dr. Mack's documentation (follow up office note dated 08/02/16-copy on chart), lumbar puncture showed elevated protein in the CSF. - consulted neurology, Dr. Che ordered MRI, MRI showed severe multilevel cord compression due to spinal stenosis and disk bulging - Consulted Dr. Eddy, performed operative intervention on 08/08. Postoperative care per neurosurgery. - Tramadol as needed for pain with IV Dilaudid as needed for breakthrough Allergic reaction to morphine on 08/09 - Improved with IV Solu-Medrol - Continue prednisone 50 mg 4 days Dysphagia: Secondary to surgery vs allergic reaction - Speech therapy consulted, diet per speech therapy UTI Urine culture growing Escherichia coli sensitive to ceftriaxone. Patient has received IV ceftriaxone 4 days -Treated, DC'd antibiotics -Repeat urine was ordered for, follow-up repeat culture Hypertension: Better controlled. - Continued home lisinopril, carvedilol, and valsartan - provide pain management PRN - Started on nifedipine, titrated dose to 90 mg daily - Monitor blood pressure trends and adjust treatments as indicated Diabetes mellitus, reasonably controlled -Accu checks with SSI DVT prophylaxis - SCDs - Resume chemotherapy prophylaxis when okay with surgery Written by Kory Montemayor, acting as scribe for Dr. Pyle on 08/09/16 at 13:46. This note was transcribed by scribe []. I, Dr. Michelle Pyle personally performed the history, physical exam, and medical decision making; and confirmed the accuracy of the information in the transcribed note. Authenticated by Dr. Michelle Pyle on 08/09/16 at 13:46. Discharge Planning Follow-up neurosurgery and rehabilitation recommendations. Problem Qualifiers (1) UTI (urinary tract infection): Qualified Code: N30.00 - Acute cystitis without hematuria (2) HTN (hypertension): Qualified Code: I10 - Essential hypertension Kory Montemayor Aug 09, 2016 13:46 Michelle Pyle MD Aug 09, 2016 14:00
[2016-08-09] MEDS: predniSONE 50 MG TAB PO SCH (15:39)
[2016-08-09 15:44] VITALS: BP 140/78; PULSE 95; RESP 17; TEMP 99.6; O2SAT 100
[2016-08-09 20:00] VITALS: BP 140/68; PULSE 99; RESP 20; TEMP 98.2; O2SAT 96
[2016-08-10 01:18] VITALS: BP 135/61; PULSE 91; RESP 20; TEMP 97.9; O2SAT 94
[2016-08-10] MEDS: DOCUSATE SODIUM 100 MG CAP PO SCH ×2 (04:45→18:21)
[2016-08-10] MEDS: LEVOTHYROXINE SODIUM 50 MCG TAB PO SCH (04:45)
[2016-08-10 06:04] VITALS: BP 141/63; PULSE 82; RESP 20; TEMP 96.4; O2SAT 93
[2016-08-10] MEDS: INSULIN ASPART SUPPLEMENTAL SCALE SQ SCH ×4 (07:00→23:31)
[2016-08-10 08:00] VITALS: BP_SYST 134; BP_SYST 168; BP_DIAS 70; BP_DIAS 73; PULSE 66; PULSE 78; RESP 18; TEMP 96.9; TEMP 97; O2SAT 93; O2SAT 96
[2016-08-10] MEDS: FERROUS SULFATE 325 MG (65 MG ELEMENTAL IRON) TAB PO SCH (08:47)
[2016-08-10] MEDS: VALSARTAN 160 MG TAB PO SCH (08:47)
[2016-08-10] MEDS: TOLTERODINE TARTRATE 4 MG CAP LA PO SCH (08:47)
[2016-08-10] MEDS: NIFEdipine 90 MG SUSTAINED RELEASE TAB PO SCH (08:47)
[2016-08-10] MEDS: LISINOPRIL 20 MG TAB PO SCH (08:47)
[2016-08-10] MEDS: CARVEDILOL 12.5 MG TAB PO SCH ×2 (08:48→22:27)
[2016-08-10] MEDS: EZETIMIBE 10 MG TAB PO SCH (08:48)
[2016-08-10] MEDS: predniSONE 50 MG TAB PO SCH (08:51)
[2016-08-10] MEDS: SODIUM CHLORIDE 0.9% FLUSH 10 ML FLUSH IV FLUSH SCH ×2 (09:00→23:31)
--- NOTE | 2016-08-10 10:03 | HHI.PR ---
Subjective Remarks Patient in nad. ays she is feeling much bettr, seen by speech therapy will advance diet. Less swelling , satting well, on nC. No chest pain or sob. Pain is controlled by meds. No n/v/d/c. Objective Vitals Vital Signs Date Time Temp Pulse Resp B/P Pulse Ox O2 Delivery O2 Flow Rate FiO2 08/10/16 06:04 96.4 82 20 141/63 93 08/10/16 01:18 97.9 91 20 135/61 94 08/09/16 20:00 98.2 99 20 140/68 96 08/09/16 15:44 99.6 95 17 140/78 100 08/09/16 11:39 97.0 66 17 153/55 100 I/O 08/09/16 08/09/16 08/09/16 08/10/16 08/10/16 08/10/16 07:00 15:00 23:00 07:00 15:00 23:00 Intake Total 480 ml Output Total 80 ml 550 ml 30 ml 800 ml Balance -80 ml -70 ml -30 ml -800 ml Intake Oral 480 ml Output Urine Total 80 ml 550 ml 800 ml Drainage Total 30 ml # Bowel Movements 0 Result Diagram: 08/09/16 0640 08/09/16 0640 Imaging Last Impressions Cervical Spine X-Ray 08/08/16 0000 Signed Impressions: Service Date/Time: Monday, August 08, 2016 11:51 - CONCLUSION: Status post anterior cervical fusion at the C4-5 and C6-7 levels. Shaheed Braxton MD Thoracic Spine MRI 08/03/16 0951 Signed Impressions: Service Date/Time: Wednesday, August 03, 2016 11:28 - CONCLUSION: Moderate spinal stenosis at the T10-T11 level. There is minimal anterior wedging of the T12 vertebral body old by MRI. Asad Rajan MD FACR Cervical Spine MRI 08/03/16 0951 Signed Impressions: Service Date/Time: Wednesday, August 03, 2016 11:28 - CONCLUSION: Multilevel cord compression at the C4-5 and C6-7 levels due to a combination of posterior element bony hypertrophy and disc protrusions. The cervical cord is narrowed to 2 mm at C4-5 and to 3 mm at C6-7. There is abnormal signal with in the compressed cord at both levels characterized by T2 prolongation and, at the C4- 5 level, enhancement in the posterior column of the cord. There is also less severe disc disease at other levels in the cervical spine as described above. Juan Beltre MD Head CT 08/02/16 0000 Signed Impressions: Service Date/Time: Tuesday, August 02, 2016 16:14 - CONCLUSION: 1. No acute intracranial abnormality. 2. Opacification of the left ethmoid air cells. Darrell Ashley MD Objective Remarks GENERAL: Well-developed well-nourished. In no acute distress. Cervical collar in place. Neck with surgical dressing and drain in place. SKIN: Warm and dry. No lesions noted. HEENT: Normocephalic. Pupils equal and round. Mucous membranes pink and moist. CARDIOVASCULAR: Regular rate and rhythm. No murmur appreciated. RESPIRATORY: No accessory muscle use. Clear to auscultation. Breath sounds equal bilaterally. GASTROINTESTINAL: Abdomen soft, non-tender, nondistended. Bowel sounds x4. MUSCULOSKELETAL: No obvious deformities. No clubbing or cyanosis. No edema. NEUROLOGICAL: Awake and alert. Continued upper extremity weakness with triceps extension and lower extremity weakness. Normal speech. PSYCHIATRIC: Appropriate mood and affect; insight and judgment normal. A/P Problem List: (1) CIDP (chronic inflammatory demyelinating polyneuropathy) ICD Code: G61.81 Status: Acute (2) Leg weakness, bilateral ICD Code: R29.898 Status: Acute (3) UTI (urinary tract infection) ICD Code: N39.0 Status: Acute (4) HTN (hypertension) ICD Code: I10 Status: Acute Assessment and Plan Ms. Meyers is an 81 year-old female who presented to the emergency room on 08/02 after being seen by her neurologist Dr. Mack in [place] for progressively worsening weakness in lower legs over the past 7 months. Patient is currently unable to walk. Cervical spinal stenosis with progressive bilateral lower extremity weakness - Per Dr. Mack's documentation (follow up office note dated 08/02/16-copy on chart), lumbar puncture showed elevated protein in the CSF. - consulted neurology, Dr. Che ordered MRI, MRI showed severe multilevel cord compression due to spinal stenosis and disk bulging - Consulted Dr. Eddy, performed operative intervention on 08/08. Postoperative care per neurosurgery. - Tramadol as needed for pain with IV Dilaudid as needed for breakthrough Allergic reaction to morphine on 08/09 - Improved with IV Solu-Medrol - Continue prednisone 50 mg 4 days - Monitor VS. Oxygen supplement as need , keep O2 sat >94%. - Improving. Dysphagia: Secondary to surgery vs allergic reaction - Speech therapy consulted, advance diet per speech therapy UTI Urine culture growing Escherichia coli sensitive to ceftriaxone. Patient has received IV ceftriaxone 4 days -Treated, DC'd antibiotics -Repeat urine was ordered for, follow-up repeat culture Hypertension: Better controlled. - Continued home lisinopril, carvedilol, and valsartan - provide pain management PRN - Started on nifedipine, titrated dose to 90 mg daily - Monitor blood pressure trends and adjust treatments as indicated Diabetes mellitus, reasonably controlled -Accu checks with SSI DVT prophylaxis - SCDs - Resume chemotherapy prophylaxis when okay with surgery Discharge Planning Follow-up neurosurgery and rehabilitation recommendations. Problem Qualifiers (1) UTI (urinary tract infection): Qualified Code: N30.00 - Acute cystitis without hematuria (2) HTN (hypertension): Qualified Code: I10 - Essential hypertension Michelle Pyle MD Aug 10, 2016 10:03
[2016-08-10] MEDS ORDERED: GADODIAMIDE PF 287 MG/ML 5 ML VIAL (for RAD MRI) IV ONE (10:27)
--- NOTE | 2016-08-10 11:37 | RADRPT ---
EXAM DATE/TIME: 08/10/2016 10:03 [facility] COMPARISON: MRI CERVICAL SPINE W & W/O CONTRAST, August 03, 2016, 11:28. INDICATIONS : Radiculopathy. Bilateral hand weakness and bilateral leg pain. Post cervical fusion 2 days ago. CONTRAST: 14 cc Omniscan (gadodiamide) IV MEDICAL HISTORY : Hypertension. Diabetes mellitus type 2. SURGICAL HISTORY : Discectomy, lumbar. CABG Fusion, cervical. ENCOUNTER: Subsequent ACUITY: 1 week PAIN SCORE: 3/10 LOCATION: Neck. TECHNIQUE: Multiplanar, multisequence MRI examination of the cervical spine was performed. FINDINGS: Patient is status post fusion from C4 to C7. Previous MRI had shown increased signal in the cord at C4-C5. This signal persists at the C4-C5 level but is improved. There is no evidence for epidural impression on the thecal sac. C2-C3: There is mild disc bulging present and neural foramina adequate. C3-C4: The thecal sac has a normal configuration. There is no evidence of disc herniation or spinal canal s tenosis. The neural foramina are patent bilaterally. C4-C7: There is fusion from C4 to C7. Alignment is anatomic. There is no epidural impingement. C7-T1: The thecal sac has a normal configuration. There is no evidence of disc herniation or spinal canal s tenosis. The neural foramina are patent bilaterally. CONCLUSION: 1. Minimal persistent signal in the cord at the C4-C5 level. 2. There is no evidence for an epidural impression. Asad Rajan MD FACR on August 10, 2016 at 11:21 Board Certified Radiologist. This report was verified electronically.
[2016-08-10 12:00] VITALS: BP 141/61; PULSE 68; RESP 18; TEMP 97.9; O2SAT 98
[2016-08-10] MEDS: traMADol HCL 50 MG TAB PO PRN ×2 (13:31→22:27)
--- NOTE | 2016-08-10 15:15 | HHI.NSPN ---
(Jeff Talbert Judit DANGELO) Note Status Status: Progress Note (Jeff Talbert) Interval History Interval History 08/03: 81-year-old female with history of previous low back surgery in 1994 for treatment of low back and lower extremity pain symptoms. She initially did very well following surgery for many years. Approximately 7 months ago she developed onset of progressive gait difficulty, severe enough to require her to start using a walker. By approximate 3-4 months ago she continued to experience further progressive gait difficulty and started falling even despite the walker, as well as onset of numbness and weakness in her hands with loss of upper extremity coordination. At that time she had to start using a wheelchair to mobilize. She was seen for further medical evaluation and indicates no further testing was done. She subsequently was seen at [facility] approximately 3 months ago and was admitted for 3 days. She is uncertain whether an MRI was done. She was subsequently discharged to inpatient rehabilitation at [facility] where she has remained for the past 3 months. She has had recent outpatient evaluation with neurology. She indicates that follow-up visit with her primary care physician recently prompted a visit to the emergency room yesterday. 08/04: Patient states she is doing well this afternoon when seen. Pain is controlled with medication and rates it a 2 out of 10. Still with numbness, tingling and weakness to the extremities. 08/05: Patient states she is doing good this morning, pain is controlled with meds, some improvement in numbness & tingling. 08/08: Patient to OR for ACDF C4-5 & C6-7 levels. 08/09: POD # 1, patient states that she has a sore throat and pain at the surgical incision. She denies any neck pain. She stated she swelled up and had difficulty breathing due to steroids which she is allergic to. It has improved after having received medication for it per the patient. Patient did receive Solumedrol this morning but no other medications expected for an allergic reaction. 08/10: POD # 2, patient states sore throat has resolved but still has hoarseness. Still with numbness to BUE that is about the same. No pain to the neck or extremities. (Jeff Talbert) Labs, Micro, & Vital Signs Constitutional Vital Signs Date Time Temp Pulse Resp B/P Pulse Ox O2 Delivery O2 Flow Rate FiO2 08/10/16 12:00 97.9 68 18 141/61 98 08/10/16 08:00 96.9 78 18 168/70 96 08/10/16 06:04 96.4 82 20 141/63 93 08/10/16 01:18 97.9 91 20 135/61 94 08/09/16 20:00 98.2 99 20 140/68 96 08/09/16 15:44 99.6 95 17 140/78 100 08/10/16 07:00 Intake Total 480 ml Output Total 1380 ml Balance -900 ml (Jeff Talbert) Review of Systems/Exam ROS Neuro: Still with numbness & weakness to the extremities. Denies any headache or dizziness. HEENT: Sore throat better, still hoarse. Resp: Denies any shortness of breath or productive cough. Cardiac: Denies any chest pain, palpitations or irregular heart rate. GI: Denies any abdominal pain, nausea, vomiting or bowel incontinence. : Denies any urinary incontinence. MS: Denies any arm or leg pain. Exam Neck: [place] J cervical collar in place, intact left anterior surgical dressing w /o any shadowing on it, RUSTY drain to bulb suction w/sanguinous drainage. Resp: CTAB w/o W/R/R, equal excursion, non-laboured, on NC. CV: S1S2 w/RRR w/o M/G/R, dependent edema 1+ to distal extremities. GI: Abdomen soft, nontender, no bowel sounds appreciated. : Rojas catheter to BSD w/clear yellow urine. Neuro: AAOx3. Speech clear & appropriate. Follows commands. Decreased sensation to light touch to extremities but improved per patient. Motor function 4/5 RUE, 3+/5 LUE, except for hand intrinsics & extensors 1-2/5, BLE 1-2/5 although knee flexion 4/5. Still hoarse but voice stronger. (Jeff Talbert) Medications Current Medications Current Medications Medications (Trade) Dose Ordered Sig/Jin Route Start Time Stop Time Status Last Admin (NS Flush) 2 ml UNSCH PRN IV FLUSH 08/02/16 17:00 08/09/16 07:04 (NS Flush) 2 ml BID IV FLUSH 08/02/16 21:00 08/10/16 09:00 (Tylenol) 650 mg Q4H PRN PO 08/02/16 17:00 08/08/16 01:49 (Zofran Inj) 4 mg Q6H PRN IVP 08/02/16 17:00 (Colace) 100 mg Q12H PO 08/02/16 18:00 08/10/16 04:45 (Milk Of Magnesia Liq) 30 ml Q12H PRN PO 08/02/16 17:00 (Restoril) 15 mg HS PRN PO 08/02/16 21:00 (Lovenox Inj) 40 mg Q24H SQ 08/02/16 18:00 Hold 08/06/16 17:34 (Tessalon) 100 mg TID PRN PO 08/03/16 00:30 (Zetia) 10 mg DAILY PO 08/03/16 09:00 08/10/16 08:48 (Neurontin) 300 mg HS PO 08/03/16 21:00 08/09/16 22:10 (Synthroid) 50 mcg DAILY@07 PO 08/03/16 07:00 08/10/16 04:45 (Detrol La) 4 mg DAILY PO 08/03/16 09:00 08/10/16 08:47 (Diovan) 160 mg DAILY PO 08/03/16 09:00 08/10/16 08:47 (Ferrous Sulfate) 325 mg DAILY PO 08/03/16 09:00 08/10/16 08:47 (Prinivil) 40 mg DAILY PO 08/03/16 09:00 08/10/16 08:47 (Ultram) 50 mg Q8H PRN PO 08/03/16 00:45 08/10/16 13:31 (D50w (Vial) Inj) 25 ml UNSCH PRN IV PUSH 08/03/16 17:00 (Glucagon Inj) 1 mg UNSCH PRN OTHER 08/03/16 17:00 (Coreg) 12.5 mg BID PO 08/04/16 21:00 08/10/16 08:48 (Procardia Xl) 90 mg DAILY PO 08/07/16 09:00 08/10/16 08:47 (Dilaudid Pf Inj) 0.5 mg Q3H PRN IV 08/08/16 16:00 08/09/16 22:12 (Narcan Inj) 0.4 mg UNSCH PRN IV 08/08/16 16:00 (Deltasone) 50 mg DAILY PO 08/09/16 13:45 08/13/16 13:44 08/10/16 08:51 (Macrobid) 100 mg BIDPC PO 08/10/16 18:00 (Jeff Talbert) Medical Decision Making MDM Remarks 1. POD # 2 s/p ACDF C4-5 & C6-7 levels, still w/numbness but no change, motor function slightly improved or stable except for hand intrinsics & extensors continue to be weak a. Severe cervical stenosis b. Severe cervical myelopathy 2. Hypertension 3. Diabetes 4. History of coronary artery disease 5. Escherichia coli UTI, treated 6. Urine culture positive for Enterococcus faecalis 7. Mild persistent signal in cord at C4-C5 level on MRI 08/10 (draft report) ( Jeff Talbert) Plan Plan Remarks 1. Continue [place] J cervical collar 2. Probable posterior cervical diskectomy & fusion in future. 3. ST for swallow eval pending 4. PT & OT evals pending 5. Continue neuro checks 6. Tx UTI per primary team. 7. Blood pressure control per primary team. (Jeff Talbert) Attending Statement I have personally seen and examined the patient on the date of this note. Pertinent documentation and study results have been reviewed by the undersigned. I have personally developed the treatment plan and performed medical decision making. Agree with findings, exam, and treatment plan as noted above. Neurologic exam stable postoperative. physical therapy following Speech therapy swallowing evaluation. Would benefit from inpatient rehabilitation (Sav Eddy MD) Jeff Talbert Aug 10, 2016 15:15 Sav Eddy MD Aug 10, 2016 18:49
[2016-08-10 16:00] VITALS: BP 173/69; PULSE 75; RESP 20; TEMP 97.8; O2SAT 99
[2016-08-10] MEDS: NITROFURANTOIN MONOHYD MACROCR 100 MG CAP PO SCH (18:22)
[2016-08-10 20:00] VITALS: BP 166/76; PULSE 81; RESP 18; TEMP 97.8; O2SAT 97
[2016-08-10] MEDS: GABAPENTIN 300 MG CAP PO SCH (22:27)
[2016-08-10] MEDS: HYDROmorphone HCL PF 1 MG/ML VIAL IV PRN (23:29)
[2016-08-10] MEDS: SODIUM CHLORIDE 0.9% FLUSH 10 ML FLUSH IV FLUSH PRN (23:29)
[2016-08-11] VITALS: BP 164/70; PULSE 71; RESP 20; TEMP 97.4; O2SAT 97
[2016-08-11 04:00] VITALS: BP 168/68; PULSE 62; RESP 20; TEMP 97.1; O2SAT 95
[2016-08-11] MEDS: DOCUSATE SODIUM 100 MG CAP PO SCH ×2 (06:30→17:22)
[2016-08-11] MEDS: LEVOTHYROXINE SODIUM 50 MCG TAB PO SCH (06:30)
[2016-08-11 08:00] VITALS: BP 146/65; PULSE 69; RESP 20; TEMP 97; O2SAT 94
[2016-08-11] MEDS: SODIUM CHLORIDE 0.9% FLUSH 10 ML FLUSH IV FLUSH SCH ×2 (09:00→21:00)
[2016-08-11] MEDS: TOLTERODINE TARTRATE 4 MG CAP LA PO SCH (09:04)
[2016-08-11] MEDS: VALSARTAN 160 MG TAB PO SCH (09:04)
[2016-08-11] MEDS: traMADol HCL 50 MG TAB PO PRN ×2 (09:05→22:20)
[2016-08-11] MEDS: LISINOPRIL 20 MG TAB PO SCH (09:06)
[2016-08-11] MEDS: EZETIMIBE 10 MG TAB PO SCH (09:06)
[2016-08-11] MEDS: NIFEdipine 90 MG SUSTAINED RELEASE TAB PO SCH (09:06)
[2016-08-11] MEDS: NITROFURANTOIN MONOHYD MACROCR 100 MG CAP PO SCH ×2 (09:06→17:22)
[2016-08-11] MEDS: FERROUS SULFATE 325 MG (65 MG ELEMENTAL IRON) TAB PO SCH (09:07)
[2016-08-11] MEDS: CARVEDILOL 12.5 MG TAB PO SCH ×2 (09:07→22:20)
[2016-08-11] MEDS: predniSONE 50 MG TAB PO SCH (09:07)
[2016-08-11 12:00] VITALS: BP 163/69; PULSE 65; RESP 20; TEMP 97; O2SAT 96
[2016-08-11] MEDS: INSULIN ASPART SUPPLEMENTAL SCALE SQ SCH ×3 (12:12→21:00)
--- NOTE | 2016-08-11 13:19 | HHI.PR ---
Subjective Remarks Follow-up for cervical stenosis s/p operative repair. The patient has no acute complaints today. She states that she's been eating okay, but does have decreased appetite. She denies any problems swallowing. She denies any dysuria or urinary frequency. She continues to report upper and lower showing any weakness. She states that Dr. Eddy's office was calling about doing another procedure. Objective Vitals Vital Signs Date Time Temp Pulse Resp B/P Pulse Ox O2 Delivery O2 Flow Rate FiO2 08/11/16 12:00 97.0 65 20 163/69 96 08/11/16 08:00 97.0 69 20 146/65 94 08/11/16 04:00 97.1 62 20 168/68 95 08/11/16 00:00 97.4 71 20 164/70 97 08/10/16 20:00 97.8 81 18 166/76 97 08/10/16 16:00 97.8 75 20 173/69 99 08/10/16 14:31 19 I/O 08/10/16 08/10/16 08/10/16 08/11/16 08/11/16 08/11/16 07:00 15:00 23:00 07:00 15:00 23:00 Output Total 800 ml 600 ml 900 ml 700 ml Balance -800 ml -600 ml -900 ml -700 ml Output Urine Total 800 ml 600 ml 900 ml 700 ml # Bowel Movements 1 0 Result Diagram: 08/09/16 0640 08/09/16 0640 Imaging Last Impressions Cervical Spine MRI 08/10/16 0000 Signed Impressions: Service Date/Time: Wednesday, August 10, 2016 10:03 - CONCLUSION: 1. Minimal persistent signal in the cord at the C4-C5 level. 2. There is no evidence for an epidural impression. Asad Rajan MD FACR Cervical Spine X-Ray 08/08/16 0000 Signed Impressions: Service Date/Time: Monday, August 08, 2016 11:51 - CONCLUSION: Status post anterior cervical fusion at the C4-5 and C6-7 levels. Shaheed Braxton MD Thoracic Spine MRI 08/03/16 0951 Signed Impressions: Service Date/Time: Wednesday, August 03, 2016 11:28 - CONCLUSION: Moderate spinal stenosis at the T10-T11 level. There is minimal anterior wedging of the T12 vertebral body old by MRI. Asad Rajan MD FACR Head CT 08/02/16 0000 Signed Impressions: Service Date/Time: Tuesday, August 02, 2016 16:14 - CONCLUSION: 1. No acute intracranial abnormality. 2. Opacification of the left ethmoid air cells. Darrell Ashley MD Objective Remarks GENERAL: Well-developed well-nourished. In no acute distress. Cervical collar in place. Neck with surgical dressing and drain in place. SKIN: Warm and dry. No lesions noted. HEENT: Normocephalic. Pupils equal and round. Mucous membranes pink and moist. CARDIOVASCULAR: Regular rate and rhythm. No murmur appreciated. RESPIRATORY: No accessory muscle use. Clear to auscultation. Breath sounds equal bilaterally. GASTROINTESTINAL: Abdomen soft, non-tender, nondistended. Bowel sounds x4. MUSCULOSKELETAL: No obvious deformities. No clubbing or cyanosis. No edema. NEUROLOGICAL: Awake and alert. Continued upper extremity weakness with triceps extension and lower extremity weakness, although slightly improved. Right lower extremity weaker than the left. Normal speech. PSYCHIATRIC: Appropriate mood and affect; insight and judgment normal. A/P Problem List: (1) CIDP (chronic inflammatory demyelinating polyneuropathy) ICD Code: G61.81 Status: Acute (2) Leg weakness, bilateral ICD Code: R29.898 Status: Acute (3) UTI (urinary tract infection) ICD Code: N39.0 Status: Acute (4) HTN (hypertension) ICD Code: I10 Status: Acute Assessment and Plan Ms. Meyers is an 81 year-old female who presented to the emergency room on 08/02 after being seen by her neurologist Dr. Mack in [place] for progressively worsening weakness in lower legs over the past 7 months. Patient is currently unable to walk. Cervical spinal stenosis with progressive bilateral lower extremity weakness - Per Dr. Mack's documentation (follow up office note dated 08/02/16-copy on chart), lumbar puncture showed elevated protein in the CSF. - consulted neurology, Dr. Che ordered MRI, MRI showed severe multilevel cord compression due to spinal stenosis and disk bulging - Consulted Dr. Eddy, performed operative intervention on 08/08. Postoperative care per neurosurgery. - Tramadol as needed for pain with IV Dilaudid as needed for breakthrough - Follow-up rehabilitation recommendations Allergic reaction to morphine on 08/09 - Improved with IV Solu-Medrol - Continue prednisone 50 mg 4 days Dysphagia: Secondary to surgery vs allergic reaction - Speech therapy consulted, diet per speech therapy - Improved UTI Urine culture 08/02 with Escherichia coli, treated with IV ceftriaxone 4 days. Repeat urine ordered 08/08 with enterococcus Faecalis The patient is asymptomatic and has no fever or leukocytosis -Course of Macrobid Hypertension: Better controlled. - Continued home lisinopril, carvedilol, and valsartan - provide pain management PRN - Started on nifedipine, titrated dose to 90 mg daily - Monitor blood pressure trends and adjust treatments as indicated Diabetes mellitus, reasonably controlled -Accu checks with SSI DVT prophylaxis - SCDs - Resume chemotherapy prophylaxis when okay with surgery Written by Kory Montemayor, acting as scribe for Dr. Pyle on 08/11/16 at 13:19. This note was transcribed by scribJonathan [email or web address]. I, Dr. Michelle Pyle personally performed the history, physical exam, and medical decision making; and confirmed the accuracy of the information in the transcribed note. Authenticated by Dr. Michelle Pyle on 08/11/16 at 13:19. Discharge Planning Follow-up neurosurgery and rehabilitation recommendations. Problem Qualifiers (1) UTI (urinary tract infection): Qualified Code: N30.00 - Acute cystitis without hematuria (2) HTN (hypertension): Qualified Code: I10 - Essential hypertension Kory Montemayor Aug 11, 2016 13:19 Michelle Pyle MD Aug 11, 2016 14:49
--- NOTE | 2016-08-11 15:23 | HHI.NSPN ---
(Jeff Talbert Judit DANGELO) Note Status Status: Progress Note (Jeff Talbert) Interval History Interval History 08/03: 81-year-old female with history of previous low back surgery in 1994 for treatment of low back and lower extremity pain symptoms. She initially did very well following surgery for many years. Approximately 7 months ago she developed onset of progressive gait difficulty, severe enough to require her to start using a walker. By approximate 3-4 months ago she continued to experience further progressive gait difficulty and started falling even despite the walker, as well as onset of numbness and weakness in her hands with loss of upper extremity coordination. At that time she had to start using a wheelchair to mobilize. She was seen for further medical evaluation and indicates no further testing was done. She subsequently was seen at [facility] approximately 3 months ago and was admitted for 3 days. She is uncertain whether an MRI was done. She was subsequently discharged to inpatient rehabilitation at [facility] where she has remained for the past 3 months. She has had recent outpatient evaluation with neurology. She indicates that follow-up visit with her primary care physician recently prompted a visit to the emergency room yesterday. 08/04: Patient states she is doing well this afternoon when seen. Pain is controlled with medication and rates it a 2 out of 10. Still with numbness, tingling and weakness to the extremities. 08/05: Patient states she is doing good this morning, pain is controlled with meds, some improvement in numbness & tingling. 08/08: Patient to OR for ACDF C4-5 & C6-7 levels. 08/09: POD # 1, patient states that she has a sore throat and pain at the surgical incision. She denies any neck pain. She stated she swelled up and had difficulty breathing due to steroids which she is allergic to. It has improved after having received medication for it per the patient. Patient did receive Solumedrol this morning but no other medications expected for an allergic reaction. 08/10: POD # 2, patient states sore throat has resolved but still has hoarseness. Still with numbness to BUE that is about the same. No pain to the neck or extremities. 08/11: POD # 3, doing well in overall but has a sore throat today. The numbness to the UE remains the same. (Jeff Talbert) Labs, Micro, & Vital Signs Constitutional Vital Signs Date Time Temp Pulse Resp B/P Pulse Ox O2 Delivery O2 Flow Rate FiO2 08/11/16 12:00 97.0 65 20 163/69 96 08/11/16 10:05 18 08/11/16 08:00 97.0 69 20 146/65 94 08/11/16 04:00 97.1 62 20 168/68 95 08/11/16 00:00 97.4 71 20 164/70 97 08/10/16 20:00 97.8 81 18 166/76 97 08/10/16 16:00 97.8 75 20 173/69 99 08/11/16 07:00 Output Total 2200 ml Balance -2200 ml (Jeff Talbert) Review of Systems/Exam ROS Neuro: Still with numbness & weakness to the arms and weakness to the legs. Denies any headache or dizziness. HEENT: Sore throat worse today, still hoarse. Resp: Denies any shortness of breath or productive cough. Cardiac: Denies any chest pain, palpitations or irregular heart rate. GI: Denies any abdominal pain, nausea, vomiting or bowel incontinence. : Denies any urinary incontinence. MS: Denies any arm or leg pain. Exam Neck: Dolores J cervical collar in place, intact left anterior surgical dressing w /o any shadowing on it, RUSTY drain to bulb suction w/sanguinous drainage. Resp: CTAB w/o W/R/R, equal excursion, non-laboured, on NC. CV: S1S2 w/RRR w/o M/G/R, dependent edema 1+ to distal extremities. GI: Abdomen soft, nontender, no bowel sounds appreciated. : Rojas catheter to BSD w/clear yellow urine. Neuro: AAOx3. Speech clear & appropriate. Follows commands. Decreased sensation to light touch to upper extremities without change. Motor function 4/5 RUE, 3+/ 5 LUE, except for hand intrinsics & extensors 1-2/5, BLE 1-2/5 although knee flexion 3+/5. Sounds slightly more hoarse today. (Jeff Talbert) Medications Current Medications Current Medications Medications (Trade) Dose Ordered Sig/Jin Route Start Time Stop Time Status Last Admin (NS Flush) 2 ml UNSCH PRN IV FLUSH 08/02/16 17:00 08/10/16 23:29 (NS Flush) 2 ml BID IV FLUSH 08/02/16 21:00 08/11/16 09:00 (Tylenol) 650 mg Q4H PRN PO 08/02/16 17:00 08/08/16 01:49 (Zofran Inj) 4 mg Q6H PRN IVP 08/02/16 17:00 (Colace) 100 mg Q12H PO 08/02/16 18:00 08/11/16 06:30 (Milk Of Magnesia Liq) 30 ml Q12H PRN PO 08/02/16 17:00 (Restoril) 15 mg HS PRN PO 08/02/16 21:00 (Lovenox Inj) 40 mg Q24H SQ 08/02/16 18:00 Hold 08/06/16 17:34 (Tessalon) 100 mg TID PRN PO 08/03/16 00:30 (Zetia) 10 mg DAILY PO 08/03/16 09:00 08/11/16 09:06 (Neurontin) 300 mg HS PO 08/03/16 21:00 08/10/16 22:27 (Synthroid) 50 mcg DAILY@07 PO 08/03/16 07:00 08/11/16 06:30 (Detrol La) 4 mg DAILY PO 08/03/16 09:00 08/11/16 09:04 (Diovan) 160 mg DAILY PO 08/03/16 09:00 08/11/16 09:04 (Ferrous Sulfate) 325 mg DAILY PO 08/03/16 09:00 08/11/16 09:07 (Prinivil) 40 mg DAILY PO 08/03/16 09:00 08/11/16 09:06 (Ultram) 50 mg Q8H PRN PO 08/03/16 00:45 08/11/16 09:05 (D50w (Vial) Inj) 25 ml UNSCH PRN IV PUSH 08/03/16 17:00 (Glucagon Inj) 1 mg UNSCH PRN OTHER 08/03/16 17:00 (Coreg) 12.5 mg BID PO 08/04/16 21:00 08/11/16 09:07 (Procardia Xl) 90 mg DAILY PO 08/07/16 09:00 08/11/16 09:06 (Dilaudid Pf Inj) 0.5 mg Q3H PRN IV 08/08/16 16:00 08/10/16 23:29 (Narcan Inj) 0.4 mg UNSCH PRN IV 08/08/16 16:00 (Deltasone) 50 mg DAILY PO 08/09/16 13:45 08/13/16 13:44 08/11/16 09:07 (Macrobid) 100 mg BIDPC PO 08/10/16 18:00 08/11/16 09:06 (Jeff Talbert) Medical Decision Making MDM Remarks 1. POD # 3 s/p ACDF C4-5 & C6-7 levels (08/08), still w/numbness but no change , motor function slightly improved or stable except for hand intrinsics & extensors continue to be weak a. Severe cervical stenosis b. Severe cervical myelopathy 2. Hypertension 3. Diabetes 4. History of coronary artery disease 5. Escherichia coli UTI, treated 6. Urine culture positive for Enterococcus faecalis 7. Mild persistent signal in cord at C4-C5 level on MRI 08/10 8. Patient will need posterior decompression in order to adequately decompress the spinal cord (Jeff Talbert) Plan Plan Remarks 1. Continue Dolores J cervical collar 2. Plan to take the patient to OR for a C4-C7 laminoplasty, most likely on 08/15. 3. ST for swallow eval pending 4. PT & OT evals pending 5. Continue neuro checks 6. Tx UTI per primary team. 7. Blood pressure control per primary team. (Jeff Talbert) Attending Statement I have personally seen and examined the patient on the date of this note. Pertinent documentation and study results have been reviewed by the undersigned. I have personally developed the treatment plan and performed medical decision making. Agree with findings, exam, and treatment plan as noted above. Neurologic exam remains relatively stable postoperatively. MRI results reviewed. Persistent dorsal spinal canal and cord compression C4-7. Plan staged decompression next week. (Sav Eddy MD) Jeff Talbert Aug 11, 2016 15:23 Sav Eddy MD Aug 12, 2016 20:07
[2016-08-11 16:00] VITALS: BP 145/63; PULSE 71; RESP 18; TEMP 97.6; O2SAT 96
[2016-08-11 20:34] VITALS: BP 186/76; PULSE 70; RESP 17; TEMP 97.8; O2SAT 97
[2016-08-11] MEDS: BENZONATATE 100 MG CAP PO PRN (22:20)
[2016-08-11] MEDS: GABAPENTIN 300 MG CAP PO SCH (22:20)
[2016-08-12 00:51] VITALS: BP 173/72; PULSE 67; RESP 17; TEMP 97.8; O2SAT 97
[2016-08-12 06:21] VITALS: BP 165/72; PULSE 75; RESP 17; TEMP 98.2; O2SAT 97
[2016-08-12] MEDS: traMADol HCL 50 MG TAB PO PRN ×2 (06:28→23:11)
[2016-08-12] MEDS: BENZONATATE 100 MG CAP PO PRN (06:28)
[2016-08-12] MEDS: LEVOTHYROXINE SODIUM 50 MCG TAB PO SCH (06:28)
[2016-08-12] MEDS: DOCUSATE SODIUM 100 MG CAP PO SCH ×2 (06:28→16:52)
[2016-08-12] MEDS: INSULIN ASPART SUPPLEMENTAL SCALE SQ SCH ×4 (06:28→21:00)
[2016-08-12 08:00] VITALS: BP 198/81; PULSE 66; RESP 18; TEMP 96.3; O2SAT 97
[2016-08-12] MEDS: NITROFURANTOIN MONOHYD MACROCR 100 MG CAP PO SCH ×2 (08:01→16:52)
[2016-08-12] MEDS: LISINOPRIL 20 MG TAB PO SCH (08:01)
[2016-08-12] MEDS: predniSONE 50 MG TAB PO SCH (08:01)
[2016-08-12] MEDS: NIFEdipine 90 MG SUSTAINED RELEASE TAB PO SCH (08:01)
[2016-08-12] MEDS: TOLTERODINE TARTRATE 4 MG CAP LA PO SCH (08:01)
[2016-08-12] MEDS: EZETIMIBE 10 MG TAB PO SCH (08:02)
[2016-08-12] MEDS: FERROUS SULFATE 325 MG (65 MG ELEMENTAL IRON) TAB PO SCH (08:02)
[2016-08-12] MEDS: CARVEDILOL 12.5 MG TAB PO SCH ×2 (08:02→23:10)
[2016-08-12] MEDS: VALSARTAN 160 MG TAB PO SCH (08:02)
[2016-08-12] MEDS: SODIUM CHLORIDE 0.9% FLUSH 10 ML FLUSH IV FLUSH SCH ×2 (09:00→23:11)
[2016-08-12] MEDS: HYDROmorphone HCL PF 1 MG/ML VIAL IV PRN (11:44)
--- NOTE | 2016-08-12 11:52 | HHI.PR ---
Subjective Remarks Appears in nad. Says she is able to eat better. Pain is controlled by meds. No n /v/d/c. Plan for 2nd surgery on Monday. Patient reports some numbness in her hands. Otherwise motor function improving. Objective Vitals Vital Signs Date Time Temp Pulse Resp B/P Pulse Ox O2 Delivery O2 Flow Rate FiO2 08/12/16 08:00 96.3 66 18 198/81 97 08/12/16 07:28 18 08/12/16 06:21 98.2 75 17 165/72 97 08/12/16 00:51 97.8 67 17 173/72 97 08/11/16 20:34 97.8 70 17 186/76 97 08/11/16 16:00 97.6 71 18 145/63 96 08/11/16 12:00 97.0 65 20 163/69 96 I/O 08/11/16 08/11/16 08/11/16 08/12/16 08/12/16 08/12/16 07:00 15:00 23:00 07:00 15:00 23:00 Intake Total 360 ml Output Total 700 ml 1250 ml Balance -700 ml -890 ml Intake Oral 360 ml Output Urine Total 700 ml 1250 ml # Bowel Movements 0 Result Diagram: 08/09/16 0640 08/09/16 0640 Imaging Last Impressions Cervical Spine MRI 08/10/16 0000 Signed Impressions: Service Date/Time: Wednesday, August 10, 2016 10:03 - CONCLUSION: 1. Minimal persistent signal in the cord at the C4-C5 level. 2. There is no evidence for an epidural impression. Asad Rajan MD FACR Cervical Spine X-Ray 08/08/16 0000 Signed Impressions: Service Date/Time: Monday, August 08, 2016 11:51 - CONCLUSION: Status post anterior cervical fusion at the C4-5 and C6-7 levels. Shaheed Braxton MD Thoracic Spine MRI 08/03/16 0951 Signed Impressions: Service Date/Time: Wednesday, August 03, 2016 11:28 - CONCLUSION: Moderate spinal stenosis at the T10-T11 level. There is minimal anterior wedging of the T12 vertebral body old by MRI. Asad Rajan MD FACR Head CT 08/02/16 0000 Signed Impressions: Service Date/Time: Tuesday, August 02, 2016 16:14 - CONCLUSION: 1. No acute intracranial abnormality. 2. Opacification of the left ethmoid air cells. Darrell Ashley MD Objective Remarks GENERAL: Well-developed well-nourished. In no acute distress. Cervical collar in place. Neck with surgical dressing and drain in place. SKIN: Warm and dry. No lesions noted. HEENT: Normocephalic. Pupils equal and round. Mucous membranes pink and moist. CARDIOVASCULAR: Regular rate and rhythm. No murmur appreciated. RESPIRATORY: No accessory muscle use. Clear to auscultation. Breath sounds equal bilaterally. GASTROINTESTINAL: Abdomen soft, non-tender, nondistended. Bowel sounds x4. MUSCULOSKELETAL: No obvious deformities. No clubbing or cyanosis. No edema. NEUROLOGICAL: Awake and alert. Continued upper extremity weakness with triceps extension and lower extremity weakness. Normal speech. PSYCHIATRIC: Appropriate mood and affect; insight and judgment normal. A/P Problem List: (1) CIDP (chronic inflammatory demyelinating polyneuropathy) ICD Code: G61.81 Status: Acute (2) Leg weakness, bilateral ICD Code: R29.898 Status: Acute (3) UTI (urinary tract infection) ICD Code: N39.0 Status: Acute (4) HTN (hypertension) ICD Code: I10 Status: Acute Assessment and Plan Ms. Meyers is an 81 year-old female who presented to the emergency room on 08/02 after being seen by her neurologist Dr. Mack in [place] for progressively worsening weakness in lower legs over the past 7 months. Patient is currently unable to walk. Cervical spinal stenosis with progressive bilateral lower extremity weakness - Per Dr. Mack's documentation (follow up office note dated 08/02/16-copy on chart), lumbar puncture showed elevated protein in the CSF. - consulted neurology, Dr. Che ordered MRI, MRI showed severe multilevel cord compression due to spinal stenosis and disk bulging - Consulted Dr. Eddy, performed operative intervention on 08/08. Postoperative care per neurosurgery. - Tramadol as needed for pain with IV Dilaudid as needed for breakthrough - Follow-up rehabilitation recommendations Allergic reaction to morphine on 08/09 - Improved with IV Solu-Medrol - Continue prednisone 50 mg 4 days Dysphagia: Secondary to surgery vs allergic reaction - Speech therapy consulted, diet per speech therapy - Improved UTI Urine culture 08/02 with Escherichia coli, treated with IV ceftriaxone 4 days. Repeat urine ordered 08/08 with enterococcus Faecalis The patient is asymptomatic and has no fever or leukocytosis -Course of Macrobid Hypertension: Better controlled. - Continued home lisinopril, carvedilol, and valsartan - provide pain management PRN - Started on nifedipine, titrated dose to 90 mg daily - Monitor blood pressure trends and adjust treatments as indicated Diabetes mellitus, reasonably controlled -Accu checks with SSI DVT prophylaxis - SCDs - Resume chemotherapy prophylaxis when okay with surgery Discussed with the patient and the nurse. Plan for 2nd surgery on Monday ( DR Cindi Trevino) Problem Qualifiers (1) UTI (urinary tract infection): Qualified Code: N30.00 - Acute cystitis without hematuria (2) HTN (hypertension): Qualified Code: I10 - Essential hypertension Michelle Pyle MD Aug 12, 2016 11:52
--- NOTE | 2016-08-12 11:53 | HHI.NSPN ---
(Jeff Talbert Judit DANGELO) Note Status Status: Progress Note (Jeff Talbert) Interval History Interval History 08/03: 81-year-old female with history of previous low back surgery in 1994 for treatment of low back and lower extremity pain symptoms. She initially did very well following surgery for many years. Approximately 7 months ago she developed onset of progressive gait difficulty, severe enough to require her to start using a walker. By approximate 3-4 months ago she continued to experience further progressive gait difficulty and started falling even despite the walker, as well as onset of numbness and weakness in her hands with loss of upper extremity coordination. At that time she had to start using a wheelchair to mobilize. She was seen for further medical evaluation and indicates no further testing was done. She subsequently was seen at [facility] approximately 3 months ago and was admitted for 3 days. She is uncertain whether an MRI was done. She was subsequently discharged to inpatient rehabilitation at [facility] where she has remained for the past 3 months. She has had recent outpatient evaluation with neurology. She indicates that follow-up visit with her primary care physician recently prompted a visit to the emergency room yesterday. 08/04: Patient states she is doing well this afternoon when seen. Pain is controlled with medication and rates it a 2 out of 10. Still with numbness, tingling and weakness to the extremities. 08/05: Patient states she is doing good this morning, pain is controlled with meds, some improvement in numbness & tingling. 08/08: Patient to OR for ACDF C4-5 & C6-7 levels. 08/09: POD # 1, patient states that she has a sore throat and pain at the surgical incision. She denies any neck pain. She stated she swelled up and had difficulty breathing due to steroids which she is allergic to. It has improved after having received medication for it per the patient. Patient did receive Solumedrol this morning but no other medications expected for an allergic reaction. 08/10: POD # 2, patient states sore throat has resolved but still has hoarseness. Still with numbness to BUE that is about the same. No pain to the neck or extremities. 08/11: POD # 3, doing well in overall but has a sore throat today. The numbness to the UE remains the same. 08/12: POD # 4, overall doing well. Throat still slightly sore. During the night she stated she was not able to feel her fingers but now it is back to her usual numbness. (Jeff Talbert) Labs, Micro, & Vital Signs Constitutional Vital Signs Date Time Temp Pulse Resp B/P Pulse Ox O2 Delivery O2 Flow Rate FiO2 08/12/16 08:00 96.3 66 18 198/81 97 08/12/16 07:28 18 08/12/16 06:21 98.2 75 17 165/72 97 08/12/16 00:51 97.8 67 17 173/72 97 08/11/16 20:34 97.8 70 17 186/76 97 08/11/16 16:00 97.6 71 18 145/63 96 08/11/16 12:00 97.0 65 20 163/69 96 08/12/16 07:00 Intake Total 360 ml Output Total 1250 ml Balance -890 ml (Jeff Talbert) Review of Systems/Exam ROS Neuro: Was not able to feel her fingers during the night but now numbness at its usual, weakness to the arms and weakness to the legs. Denies any headache or dizziness. HEENT: Slight sore throat today, some hoarse. Resp: Denies any shortness of breath or productive cough. Cardiac: Denies any chest pain, palpitations or irregular heart rate. GI: Denies any abdominal pain, nausea, vomiting or bowel incontinence. MS: Denies any arm or leg pain. Exam Neck: Miller J cervical collar in place, intact left anterior surgical dressing w /o any shadowing on it. Resp: CTAB w/o W/R/R, equal excursion, non-laboured, on RA. CV: S1S2 w/RRR w/o M/G/R, dependent edema 1+ to distal extremities. GI: Abdomen soft, nontender, no bowel sounds appreciated. : Rojas catheter to BSD w/clear yellow urine. Neuro: AAOx3. Speech clear & appropriate. Follows commands. Decreased sensation to light touch to upper extremities without change. Motor function 4/5 RUE, 3+/ 5 LUE, except for hand intrinsics & extensors left 1/5 & right 2+/5, BLE 1-2/5 although knee flexion 3/5. Not as hoarse today. (Jeff Talbert) Medications Current Medications Current Medications Medications (Trade) Dose Ordered Sig/Jin Route Start Time Stop Time Status Last Admin (NS Flush) 2 ml UNSCH PRN IV FLUSH 08/02/16 17:00 08/10/16 23:29 (NS Flush) 2 ml BID IV FLUSH 08/02/16 21:00 08/11/16 21:00 (Tylenol) 650 mg Q4H PRN PO 08/02/16 17:00 08/08/16 01:49 (Zofran Inj) 4 mg Q6H PRN IVP 08/02/16 17:00 (Colace) 100 mg Q12H PO 08/02/16 18:00 08/12/16 06:28 (Milk Of Magnbrittney Liq) 30 ml Q12H PRN PO 08/02/16 17:00 (Restoril) 15 mg HS PRN PO 08/02/16 21:00 (Lovenox Inj) 40 mg Q24H SQ 08/02/16 18:00 Hold 08/06/16 17:34 (Tessalon) 100 mg TID PRN PO 08/03/16 00:30 08/12/16 06:28 (Zetia) 10 mg DAILY PO 08/03/16 09:00 08/12/16 08:02 (Neurontin) 300 mg HS PO 08/03/16 21:00 08/11/16 22:20 (Synthroid) 50 mcg DAILY@07 PO 08/03/16 07:00 08/12/16 06:28 (Detrol La) 4 mg DAILY PO 08/03/16 09:00 08/12/16 08:01 (Diovan) 160 mg DAILY PO 08/03/16 09:00 08/12/16 08:02 (Ferrous Sulfate) 325 mg DAILY PO 08/03/16 09:00 08/12/16 08:02 (Prinivil) 40 mg DAILY PO 08/03/16 09:00 08/12/16 08:01 (Ultram) 50 mg Q8H PRN PO 08/03/16 00:45 08/12/16 06:28 (D50w (Vial) Inj) 25 ml UNSCH PRN IV PUSH 08/03/16 17:00 (Glucagon Inj) 1 mg UNSCH PRN OTHER 08/03/16 17:00 (Coreg) 12.5 mg BID PO 08/04/16 21:00 08/12/16 08:02 (Procardia Xl) 90 mg DAILY PO 08/07/16 09:00 08/12/16 08:01 (Dilaudid Pf Inj) 0.5 mg Q3H PRN IV 08/08/16 16:00 08/12/16 11:44 (Narcan Inj) 0.4 mg UNSCH PRN IV 08/08/16 16:00 (Deltasone) 50 mg DAILY PO 08/09/16 13:45 08/13/16 13:44 08/12/16 08:01 (Macrobid) 100 mg BIDPC PO 08/10/16 18:00 08/12/16 08:01 (Jeff Talbert) Medical Decision Making MDM Remarks 1. POD # 4 s/p ACDF C4-5 & C6-7 levels (08/08), stable neurologically a. Severe cervical stenosis b. Severe cervical myelopathy 2. Hypertension 3. Diabetes 4. History of coronary artery disease 5. Escherichia coli UTI, treated 6. Urine culture positive for Enterococcus faecalis 7. Mild persistent signal in cord at C4-C5 level on MRI 08/10 8. Patient will need posterior decompression in order to adequately decompress the spinal cord (Jeff Talbert) Plan Plan Remarks 1. Continue Miller J cervical collar 2. Plan to take the patient to OR for a C4-C7 laminoplasty, most likely on 08/15. 3. ST for swallow eval pending 4. PT & OT evals pending 5. Continue neuro checks 6. Tx UTI per primary team. 7. Blood pressure control per primary team. (Jeff Talbert) Attending Statement I have personally seen and examined the patient on the date of this note. Pertinent documentation and study results have been reviewed by the undersigned. I have personally developed the treatment plan and performed medical decision making. Agree with findings, exam, and treatment plan as noted above. Patient feels that she is a little weaker in the legs today and has some increased numbness in the left upper extremity. Examination reveals mostly 4+/5 deltoids and biceps, 4/5 right and 3/5 left triceps, 3 right and 2 left hand intrinsics. Lower extremity strength mostly 2/ 5 all major flexion and extension groups bilateral lower extremities Prominent left and moderate right Ciarra's response. No ankle clonus. Mild to moderate diffuse decreased sensation left hand. Do not see a definite overall change in neurologic exam postoperative. Discussed MRI findings with patient. As she was advised prior to surgery, we will need to do a staged posterior decompression which is tentatively planned for 08/15/16. She appears to understand all the above. All questions answered. (Sav Eddy MD) Jeff Talbert Aug 12, 2016 11:53 Sav Eddy MD Aug 12, 2016 20:10
[2016-08-12 12:00] VITALS: BP 143/65; PULSE 66; RESP 18; TEMP 97.7; O2SAT 97
[2016-08-12 17:15] VITALS: BP 160/69; PULSE 79; RESP 18; TEMP 97.3; O2SAT 97
[2016-08-12 20:00] VITALS: BP 177/73; PULSE 98; RESP 20; TEMP 97.9; O2SAT 98
[2016-08-12] MEDS: GABAPENTIN 300 MG CAP PO SCH (23:10)
[2016-08-12] MEDS: ENOXAPARIN SODIUM 40 MG/0.4 ML SYRINGE SQ SCH (23:10)
[2016-08-13] VITALS: BP 160/59; PULSE 78; RESP 18; TEMP 97; O2SAT 96
[2016-08-13] MEDS: BENZONATATE 100 MG CAP PO PRN ×4 (02:15→18:04)
[2016-08-13 04:00] VITALS: BP 187/74; PULSE 69; RESP 18; TEMP 97.4; O2SAT 99
[2016-08-13] MEDS: LEVOTHYROXINE SODIUM 50 MCG TAB PO SCH (05:40)
[2016-08-13] MEDS: DOCUSATE SODIUM 100 MG CAP PO SCH ×2 (05:44→16:21)
[2016-08-13] MEDS: INSULIN ASPART SUPPLEMENTAL SCALE SQ SCH ×4 (05:44→21:41)
[2016-08-13 08:00] VITALS: BP 176/75; PULSE 80; RESP 17; TEMP 97.3; O2SAT 100
[2016-08-13] MEDS: predniSONE 50 MG TAB PO SCH (09:00)
[2016-08-13] MEDS: TOLTERODINE TARTRATE 4 MG CAP LA PO SCH (09:10)
[2016-08-13] MEDS: VALSARTAN 160 MG TAB PO SCH (09:10)
[2016-08-13] MEDS: CARVEDILOL 12.5 MG TAB PO SCH ×2 (09:10→21:24)
[2016-08-13] MEDS: SODIUM CHLORIDE 0.9% FLUSH 10 ML FLUSH IV FLUSH SCH ×2 (09:10→21:23)
[2016-08-13] MEDS: LISINOPRIL 20 MG TAB PO SCH (09:10)
[2016-08-13] MEDS: NIFEdipine 90 MG SUSTAINED RELEASE TAB PO SCH (09:10)
[2016-08-13] MEDS: FERROUS SULFATE 325 MG (65 MG ELEMENTAL IRON) TAB PO SCH (09:10)
[2016-08-13] MEDS: EZETIMIBE 10 MG TAB PO SCH (09:11)
[2016-08-13] MEDS: NITROFURANTOIN MONOHYD MACROCR 100 MG CAP PO SCH ×2 (09:11→16:21)
[2016-08-13 12:00] VITALS: BP 161/78; PULSE 74; RESP 18; TEMP 97.1; O2SAT 96
--- NOTE | 2016-08-13 14:36 | HHI.NSPN ---
Note Status Status: Progress Note Interval History Interval History 08/03: 81-year-old female with history of previous low back surgery in 1994 for treatment of low back and lower extremity pain symptoms. She initially did very well following surgery for many years. Approximately 7 months ago she developed onset of progressive gait difficulty, severe enough to require her to start using a walker. By approximate 3-4 months ago she continued to experience further progressive gait difficulty and started falling even despite the walker, as well as onset of numbness and weakness in her hands with loss of upper extremity coordination. At that time she had to start using a wheelchair to mobilize. She was seen for further medical evaluation and indicates no further testing was done. She subsequently was seen at [facility] approximately 3 months ago and was admitted for 3 days. She is uncertain whether an MRI was done. She was subsequently discharged to inpatient rehabilitation at [facility] where she has remained for the past 3 months. She has had recent outpatient evaluation with neurology. She indicates that follow-up visit with her primary care physician recently prompted a visit to the emergency room yesterday. 08/04: Patient states she is doing well this afternoon when seen. Pain is controlled with medication and rates it a 2 out of 10. Still with numbness, tingling and weakness to the extremities. 08/05: Patient states she is doing good this morning, pain is controlled with meds, some improvement in numbness & tingling. 08/08: Patient to OR for ACDF C4-5 & C6-7 levels. 08/09: POD # 1, patient states that she has a sore throat and pain at the surgical incision. She denies any neck pain. She stated she swelled up and had difficulty breathing due to steroids which she is allergic to. It has improved after having received medication for it per the patient. Patient did receive Solumedrol this morning but no other medications expected for an allergic reaction. 08/10: POD # 2, patient states sore throat has resolved but still has hoarseness. Still with numbness to BUE that is about the same. No pain to the neck or extremities. 04/27: POD # 3, doing well in overall but has a sore throat today. The numbness to the UE remains the same. 08/12: POD # 4, overall doing well. Throat still slightly sore. During the night she stated she was not able to feel her fingers but now it is back to her usual numbness. 08/13: POD # 5, overall doing well. No new acute issues Labs, Micro, & Vital Signs Results Date Time Temp Pulse Resp B/P Pulse Ox O2 Delivery O2 Flow Rate FiO2 08/13/16 12:00 97.1 74 18 161/78 96 08/13/16 08:00 97.3 80 17 176/75 100 08/13/16 04:00 97.4 69 18 187/74 99 08/13/16 00:00 97.0 78 18 160/59 96 08/12/16 20:00 97.9 98 20 177/73 98 08/12/16 17:15 97.3 79 18 160/69 97 08/13/16 07:00 Intake Total 960 ml Output Total 2650 ml Balance -1690 ml Constitutional Vital Signs Date Time Temp Pulse Resp B/P Pulse Ox O2 Delivery O2 Flow Rate FiO2 08/13/16 12:00 97.1 74 18 161/78 96 08/13/16 08:00 97.3 80 17 176/75 100 08/13/16 04:00 97.4 69 18 187/74 99 08/13/16 00:00 97.0 78 18 160/59 96 08/12/16 20:00 97.9 98 20 177/73 98 08/12/16 17:15 97.3 79 18 160/69 97 08/13/16 07:00 Intake Total 960 ml Output Total 2650 ml Balance -1690 ml Review of Systems/Exam Exam Neck: Makah J cervical collar in place, intact left anterior surgical dressing w /o any shadowing on it. Resp: CTAB w/o W/R/R, equal excursion, non-laboured, on RA. CV: S1S2 w/RRR w/o M/G/R, dependent edema 1+ to distal extremities. GI: Abdomen soft, nontender, no bowel sounds appreciated. : Rojas catheter to BSD w/clear yellow urine. Neuro: AAOx3. Speech clear & appropriate. Follows commands. Decreased sensation to light touch to upper extremities without change. Motor function 4/5 RUE, 3+/ 5 LUE, except for hand intrinsics & extensors left 1/5 & right 2+/5, BLE 1-2/5 although knee flexion 3/5. Not as hoarse today. Medications Current Medications Current Medications Ceftriaxone Sodium 1000 mg/ Sodium Chloride 100 ml @ 200 mls/hr ONCE ONCE IV Last administered on 08/02/16 17:06; Start 08/02/16 at 16:15; Stop 08/02/16 at 16:44; Status DC Sodium Chloride (NS 1000 ml Inj) 1,000 ml @ 80 mls/hr [id number] IV Last administered on 08/02/16 17:38; Start 08/02/16 at 17:30; Stop 08/02/16 at 23:59 ; Status DC Sodium Chloride (NS Flush) 2 ml UNSCH PRN IV FLUSH FLUSH AFTER USING IV ACCESS Last administered on 08/10/16 23:29; Start 08/02/16 at 17:00 Sodium Chloride (NS Flush) 2 ml BID IV FLUSH Last administered on 08/13/16 09: 10; Start 08/02/16 at 21:00 Acetaminophen (Tylenol) 650 mg Q4H PRN PO TEMP > 100.4 Last administered on 01:49; Start 08/02/16 at 17:00 Ondansetron HCl (Zofran Inj) 4 mg Q6H PRN IVP NAUSEA OR VOMITING; Start at 17:00 Docusate Sodium (Colace) 100 mg Q12H PO Last administered on 08/13/16 05:44; Start 08/02/16 at 18:00 Magnesium Hydroxide (Milk Of Magnesia Liq) 30 ml Q12H PRN PO CONSTIPATION; Start 08/02/16 at 17:00 Temazepam (Restoril) 15 mg HS PRN PO INSOMNIA; Start 08/02/16 at 21:00 Enoxaparin Sodium 40 mg 40 mg Q24H SQ Last administered on 08/06/16 17:34; Start 08/02/16 at 18:00; Status Hold Ceftriaxone Sodium/Sodium Chloride (Rocephin Inj/NS Inj) 100 ml @ 200 mls/hr Q24H IV Last administered on 08/05/16 17:37; Start 08/03/16 at 17:00; Stop at 14:58; Status DC Benzonatate (Tessalon) 100 mg TID PRN PO COUGH Last administered on 08/13/16 12:13; Start 08/03/16 at 00:30 EZETIMIBE (Zetia) 10 mg DAILY PO Last administered on 08/13/16 09:11; Start at 09:00 Gabapentin (Neurontin) 300 mg HS PO Last administered on 08/12/16 23:10; Start 08/03/16 at 21:00 Levothyroxine Sodium (Synthroid) 50 mcg DAILY@07 PO Last administered on 05:40; Start 08/03/16 at 07:00 Tolterodine Tartrate (Detrol La) 4 mg DAILY PO Last administered on 08/13/16 09:10; Start 08/03/16 at 09:00 Valsartan (Diovan) 160 mg DAILY PO Last administered on 08/13/16 09:10; Start 08/03/16 at 09:00 Non-Formulary Medication 35 mg Q7D PO Osteoporosis Prophylaxis; Start 08/03/16 at 00:30; Stop 08/03/16 at 00:46; Status DC Ferrous Sulfate (Ferrous Sulfate) 325 mg DAILY PO NS Last administered on 09:10; Start 08/03/16 at 09:00 Lisinopril (Prinivil) 40 mg DAILY PO BPM Last administered on 08/13/16 09:10; Start 08/03/16 at 09:00 Atorvastatin Calcium (Lipitor) 20 mg DAILY PO CM Last administered on 08/03/16 12:34; Start 08/03/16 at 09:00; Stop 08/03/16 at 21:22; Status DC Tramadol HCl (Ultram) 50 mg Q8H PRN PO pain >5 Last administered on 08/12/16 23:11; Start 08/03/16 at 00:45 Gadodiamide (Omniscan Pf Inj) 14 ml STK-MED ONCE IV Last administered on 12:08; Start 08/03/16 at 12:08; Stop 08/03/16 at 12:09; Status DC Dextrose (D50w (Vial) Inj) 25 ml UNSCH PRN IV PUSH HYPOGLYCEMIA-SEE COMMENTS; Start 08/03/16 at 17:00 Glucagon (Glucagon Inj) 1 mg UNSCH PRN OTHER HYPOGLYCEMIA-SEE COMMENTS; Start 08/03/16 at 17:00 Insulin Aspart (NovoLOG SUPPLEMENTAL SCALE) 1 ACHS SLIDING SCALE SQ Last administered on 08/13/16 11:00; Start 08/03/16 at 21:00 Amlodipine Besylate (Norvasc) 5 mg DAILY PO Last administered on 08/04/16 12: 57; Start 08/04/16 at 09:00; Stop 08/05/16 at 07:10; Status DC Carvedilol (Coreg) 12.5 mg BID PO Last administered on 08/13/16 09:10; Start 08/04/16 at 21:00 Amlodipine Besylate (Norvasc) 5 mg ONCE ONCE PO Last administered on 01:33; Start 08/05/16 at 01:30; Stop 08/05/16 at 01:31; Status DC Amlodipine Besylate (Norvasc) 10 mg DAILY PO ; Start 08/05/16 at 09:00; Stop at 09:00; Status DC Nifedipine (Procardia Xl) 60 mg DAILY PO Last administered on 08/06/16 11:15; Start 08/05/16 at 09:00; Stop 08/06/16 at 12:51; Status DC Nifedipine (Procardia Xl) 90 mg DAILY PO Last administered on 08/13/16 09:10; Start 08/07/16 at 09:00 Nifedipine (Procardia Xl) 30 mg ONCE ONCE PO Last administered on 08/06/16 14 :58; Start 08/06/16 at 13:00; Stop 08/06/16 at 13:01; Status DC Famotidine (Pepcid Inj) 20 mg STK-MED ONCE .ROUTE Last administered on 10:29; Start 08/08/16 at 10:29; Stop 08/08/16 at 10:30; Status DC Fentanyl Citrate (fentaNYL INJ) 250 mcg STK-MED ONCE .ROUTE ; Start 08/08/16 at 10:31; Stop 08/08/16 at 10:32; Status DC Midazolam HCl (Versed Inj) 2 mg STK-MED ONCE .ROUTE Last administered on 10:32; Start 08/08/16 at 10:32; Stop 08/08/16 at 10:33; Status DC Thrombin (Thrombin Top Soln) 10,000 units STK-MED ONCE .ROUTE Last administered on 08/08/16 12:12; Start 08/08/16 at 10:52; Stop 08/08/16 at 10:53 ; Status DC Gelatin (Gelfoam 100 Top) 1 foam STK-MED ONCE .ROUTE Last administered on 12:12; Start 08/08/16 at 10:52; Stop 08/08/16 at 10:53; Status DC Gentamicin Sulfate (Gentamicin Inj) 240 mg STK-MED ONCE .ROUTE Last administered on 08/08/16 12:12; Start 08/08/16 at 10:52; Stop 08/08/16 at 10:53 ; Status DC Lidocaine/ Epinephrine (Xylocaine-Epi 1%-1:100,000 Inj) 40 ml STK-MED ONCE .ROUTE Last administered on 08/08/16 12:12; Start 08/08/16 at 10:52; Stop at 10:53; Status DC Cefazolin Sodium (Ancef Inj) 1,000 mg STK-MED ONCE IV Last administered on 08/08 11:51; Start 08/08/16 at 11:51; Stop 08/08/16 at 12:39; Status DC Acetaminophen (Ofirmev Inj) 1,000 mg STK-MED ONCE IV Last administered on 13:51; Start 08/08/16 at 13:38; Stop 08/08/16 at 13:39; Status DC Thrombin (Thrombin Top Soln) 10,000 units STK-MED ONCE .ROUTE Last administered on 08/08/16 13:59; Start 08/08/16 at 13:55; Stop 08/08/16 at 13:56 ; Status DC Fentanyl Citrate (fentaNYL INJ) 250 mcg STK-MED ONCE .ROUTE ; Start 08/08/16 at 14:50; Stop 08/08/16 at 14:51; Status DC Fentanyl Citrate (fentaNYL INJ) 250 mcg STK-MED ONCE .ROUTE ; Start 08/08/16 at 14:50; Stop 08/08/16 at 14:51; Status DC Hydromorphone HCl (Dilaudid Pf Inj) 0.5 mg Q3H PRN IV breakthru pain; while NPO Last administered on 08/12/16 11:44; Start 08/08/16 at 16:00 Morphine Sulfate (Morphine Inj) 4 mg Q3H PRN IV BREAKTHROUGH PAIN Last administered on 08/09/16 07:04; Start 08/08/16 at 16:00; Stop 08/09/16 at 08:36 ; Status DC Naloxone HCl (Narcan Inj) 0.4 mg UNSCH PRN IV SEE LABEL COMMENTS; Start at 16:00 Miscellaneous Information ALL NURSING DEPARTME... UNSCH PRN .XX SEE LABEL COMMENTS; Start 08/08/16 at 17:15; Stop 08/09/16 at 17:14; Status DC Morphine Sulfate (*morphine INJ PERIprocedure ONLY) 8 mg STK-MED ONCE .ROUTE Last administered on 08/08/16 17:39; Start 08/08/16 at 17:39; Stop 08/08/16 at 17:40; Status DC Methylprednisolone Sodium Succinate (SoluMEDROL INJ) 125 mg ONCE ONCE IV PUSH Last administered on 08/09/16 09:13; Start 08/09/16 at 08:45; Stop 08/09/16 at 08:46; Status DC Prednisone (Deltasone) 50 mg DAILY PO Last administered on 08/13/16 09:00; Start 08/09/16 at 13:45; Stop 08/13/16 at 13:44; Status DC Gadodiamide (Omniscan Pf Inj) 14 ml STK-MED ONCE IV Last administered on 10:27; Start 08/10/16 at 10:27; Stop 08/10/16 at 10:28; Status DC Nitrofurantoin Macrocrystals (Macrobid) 100 mg BIDPC PO Last administered on 09:11; Start 08/10/16 at 18:00 Enoxaparin Sodium (Lovenox Inj) 40 mg Q24H SQ Last administered on 08/12/16 23 :10; Start 08/12/16 at 21:00; Stop 08/14/16 at 21:00 Medical Decision Making MDM Remarks 1. POD # 5 s/p ACDF C4-5 & C6-7 levels (08/08), stable neurologically a. Severe cervical stenosis b. Severe cervical myelopathy 2. Hypertension 3. Diabetes 4. History of coronary artery disease 5. Escherichia coli UTI, treated 6. Urine culture positive for Enterococcus faecalis 7. Mild persistent signal in cord at C4-C5 level on MRI 08/10 8. Patient will need posterior decompression in order to adequately decompress the spinal cord Plan Plan Remarks 1. Continue Makah J cervical collar 2. Plan to take the patient to OR for a C4-C7 laminoplasty, most likely on 08/15. 3. ST for swallow eval pending 4. PT & OT evals pending 5. Continue neuro checks 6. Tx UTI per primary team. 7. Blood pressure control per primary team. Christos Joya MD Aug 13, 2016 14:36
[2016-08-13 16:00] VITALS: BP 159/70; PULSE 71; RESP 18; TEMP 98.1; O2SAT 98
[2016-08-13] MEDS: GABAPENTIN 300 MG CAP PO SCH (21:23)
[2016-08-13] MEDS: ENOXAPARIN SODIUM 40 MG/0.4 ML SYRINGE SQ SCH (21:23)
[2016-08-13] MEDS: traMADol HCL 50 MG TAB PO PRN (21:24)
[2016-08-13 22:23] VITALS: BP 173/75; PULSE 60; RESP 18; TEMP 98.4; O2SAT 98
--- NOTE | 2016-08-13 23:53 | HHI.PR ---
Subjective Remarks patient seen this morning. Says she is feeling all right. Denies any chest pain or shortness of breath. Slight nonproductive cough. Objective Vital Signs Date Time Temp Pulse Resp B/P Pulse Ox O2 Delivery O2 Flow Rate FiO2 08/13/16 22:23 98.4 60 18 173/75 98 08/13/16 16:00 98.1 71 18 159/70 98 08/13/16 12:00 97.1 74 18 161/78 96 08/13/16 08:00 97.3 80 17 176/75 100 08/13/16 04:00 97.4 69 18 187/74 99 08/13/16 00:00 97.0 78 18 160/59 96 I/O 08/12/16 08/12/16 08/12/16 08/13/16 08/13/16 08/13/16 07:00 15:00 23:00 07:00 15:00 23:00 Intake Total 360 ml 960 ml 240 ml Output Total 1250 ml 650 ml 2000 ml 1000 ml Balance -890 ml 310 ml -2000 ml -760 ml Intake Oral 360 ml 960 ml 240 ml Output Urine Total 1250 ml 650 ml 2000 ml 1000 ml # Bowel Movements 0 1 3 1 Result Diagram: 08/09/16 0640 08/09/16 0640 Objective Remarks GENERAL: patient sitting up in bed. Cervical collar in place. Appears comfortable. SKIN: Warm and dry. HEAD: Normocephalic. EYES: No scleral icterus. No injection or drainage. NECK: Supple, trachea midline. No JVD. CARDIOVASCULAR: Regular rate and rhythm without murmurs, gallops, or rubs. RESPIRATORY: Breath sounds equal bilaterally. No accessory muscle use. GASTROINTESTINAL: Abdomen soft, non-tender, nondistended. MUSCULOSKELETAL: No cyanosis, or edema. BACK: Nontender without obvious deformity. No CVA tenderness. A/P Assessment and Plan Ms. Meyers is an 81 year-old female who presented to the emergency room on 08/02 after being seen by her neurologist Dr. Mack in [place] for progressively worsening weakness in lower legs over the past 7 months. Patient is currently unable to walk. Cervical spinal stenosis with progressive bilateral lower extremity weakness - Per Dr. Mack's documentation (follow up office note dated 08/02/16-copy on chart), lumbar puncture showed elevated protein in the CSF. - consulted neurology, Dr. Che ordered MRI, MRI showed severe multilevel cord compression due to spinal stenosis and disk bulging - Consulted Dr. Eddy, performed operative intervention on 08/08. Postoperative care per neurosurgery. - Tramadol as needed for pain with IV Dilaudid as needed for breakthrough - Follow-up rehabilitation recommendations =plan for repeat surgery 08/15. Allergic reaction to morphine on 08/09 - Improved with IV Solu-Medrol - s/p prednisone 50 mg 4 days =avoid morphine. //Dysphagia: Secondary to surgery vs allergic reaction - Speech therapy consulted, diet per speech therapy - Improved //UTI Urine culture 08/02 with Escherichia coli, treated with IV ceftriaxone 4 days. Repeat urine ordered 08/08 with enterococcus Faecalis The patient is asymptomatic and has no fever or leukocytosis -continue Course of Macrobid //Hypertension: Better controlled. - Continued home lisinopril, carvedilol, and valsartan - provide pain management PRN - Started on nifedipine, titrated dose to 90 mg daily - blood pressure acceptable. Continue to monitor. //Diabetes mellitus, reasonably controlled -Accu checks with SSI //DVT prophylaxis - SCDs - Resume chemical prophylaxis when okay with surgery Plan for 2nd surgery on Tuesday 08/15 ( DR Cindi Trevino) Clinton Kc MD Aug 13, 2016 23:52
[2016-08-14 01:18] VITALS: BP 147/71; PULSE 76; RESP 20; TEMP 97.6; O2SAT 97
[2016-08-14 04:32] VITALS: BP 165/74; PULSE 60; RESP 18; TEMP 97.6; O2SAT 96
[2016-08-14] MEDS: LEVOTHYROXINE SODIUM 50 MCG TAB PO SCH (06:20)
[2016-08-14] MEDS: DOCUSATE SODIUM 100 MG CAP PO SCH ×2 (06:20→16:56)
[2016-08-14] MEDS: INSULIN ASPART SUPPLEMENTAL SCALE SQ SCH ×4 (06:23→22:00)
[2016-08-14 07:33] LABS: HEMATOCRIT 35.4 % (35.0-46.0); MEAN CELL VOLUME 88.2 FL (80.0-100.0); MEAN CORPUSCULAR HEMOGLOBIN 29.7 PG (27.0-34.0); MEAN CORPUSCULAR HGB CONC 33.7 % (32.0-36.0); PLATELET COUNT 205 TH/MM3 (150-450); RED BLOOD COUNT 4.01 MIL/MM3 (4.00-5.30); RED CELL DISTRIBUTION WIDTH 14.8 % (11.6-17.2); REVIEW FLAG FINAL; WHITE BLOOD COUNT 5.6 TH/MM3 (4.0-11.0)
[2016-08-14 07:46] LABS: BICARBONATE 28.5 MEQ/L (21.0-32.0); POTASSIUM 4.3 MEQ/L (3.5-5.1)
[2016-08-14 08:00] VITALS: BP 161/72; PULSE 60; RESP 17; TEMP 96.8; O2SAT 96
[2016-08-14] MEDS: NIFEdipine 90 MG SUSTAINED RELEASE TAB PO SCH (08:23)
[2016-08-14] MEDS: FERROUS SULFATE 325 MG (65 MG ELEMENTAL IRON) TAB PO SCH (08:23)
[2016-08-14] MEDS: VALSARTAN 160 MG TAB PO SCH (08:23)
[2016-08-14] MEDS: EZETIMIBE 10 MG TAB PO SCH (08:23)
[2016-08-14] MEDS: SODIUM CHLORIDE 0.9% FLUSH 10 ML FLUSH IV FLUSH SCH ×2 (08:23→22:00)
[2016-08-14] MEDS: CARVEDILOL 12.5 MG TAB PO SCH ×2 (08:23→21:59)
[2016-08-14] MEDS: NITROFURANTOIN MONOHYD MACROCR 100 MG CAP PO SCH ×2 (08:23→16:56)
[2016-08-14] MEDS: TOLTERODINE TARTRATE 4 MG CAP LA PO SCH (08:24)
[2016-08-14] MEDS: LISINOPRIL 20 MG TAB PO SCH (08:27)
[2016-08-14 12:00] VITALS: BP 135/63; PULSE 55; RESP 18; TEMP 97.8; O2SAT 96
[2016-08-14] MEDS: traMADol HCL 50 MG TAB PO PRN ×2 (15:19→23:28)
[2016-08-14 16:00] VITALS: BP 162/78; PULSE 62; RESP 19; TEMP 97.9; O2SAT 96
--- NOTE | 2016-08-14 16:09 | HHI.NSPN ---
Note Status Status: Progress Note Interval History Interval History 08/03: 81-year-old female with history of previous low back surgery in 1994 for treatment of low back and lower extremity pain symptoms. She initially did very well following surgery for many years. Approximately 7 months ago she developed onset of progressive gait difficulty, severe enough to require her to start using a walker. By approximate 3-4 months ago she continued to experience further progressive gait difficulty and started falling even despite the walker, as well as onset of numbness and weakness in her hands with loss of upper extremity coordination. At that time she had to start using a wheelchair to mobilize. She was seen for further medical evaluation and indicates no further testing was done. She subsequently was seen at [facility] approximately 3 months ago and was admitted for 3 days. She is uncertain whether an MRI was done. She was subsequently discharged to inpatient rehabilitation at [facility] where she has remained for the past 3 months. She has had recent outpatient evaluation with neurology. She indicates that follow-up visit with her primary care physician recently prompted a visit to the emergency room yesterday. 08/04: Patient states she is doing well this afternoon when seen. Pain is controlled with medication and rates it a 2 out of 10. Still with numbness, tingling and weakness to the extremities. 08/05: Patient states she is doing good this morning, pain is controlled with meds, some improvement in numbness & tingling. 08/08: Patient to OR for ACDF C4-5 & C6-7 levels. 08/09: POD # 1, patient states that she has a sore throat and pain at the surgical incision. She denies any neck pain. She stated she swelled up and had difficulty breathing due to steroids which she is allergic to. It has improved after having received medication for it per the patient. Patient did receive Solumedrol this morning but no other medications expected for an allergic reaction. 08/10: POD # 2, patient states sore throat has resolved but still has hoarseness. Still with numbness to BUE that is about the same. No pain to the neck or extremities. 04/27: POD # 3, doing well in overall but has a sore throat today. The numbness to the UE remains the same. 08/12: POD # 4, overall doing well. Throat still slightly sore. During the night she stated she was not able to feel her fingers but now it is back to her usual numbness. 08/13: POD # 5, overall doing well. No new acute issues 08/14: POD # 6,doing well. No new acute issues Labs, Micro, & Vital Signs Results Date Time Temp Pulse Resp B/P Pulse Ox O2 Delivery O2 Flow Rate FiO2 08/14/16 12:00 97.8 55 18 135/63 96 08/14/16 08:00 96.8 60 17 161/72 96 08/14/16 04:32 97.6 60 18 165/74 96 08/14/16 01:18 97.6 76 20 147/71 97 08/13/16 22:23 98.4 60 18 173/75 98 08/14/16 07:00 Intake Total 240 ml Output Total 3100 ml Balance -2860 ml Constitutional Vital Signs Date Time Temp Pulse Resp B/P Pulse Ox O2 Delivery O2 Flow Rate FiO2 08/14/16 12:00 97.8 55 18 135/63 96 08/14/16 08:00 96.8 60 17 161/72 96 08/14/16 04:32 97.6 60 18 165/74 96 08/14/16 01:18 97.6 76 20 147/71 97 08/13/16 22:23 98.4 60 18 173/75 98 08/14/16 07:00 Intake Total 240 ml Output Total 3100 ml Balance -2860 ml Review of Systems/Exam Exam Neck: Quechan J cervical collar in place, intact left anterior surgical dressing w /o any shadowing on it. Resp: CTAB w/o W/R/R, equal excursion, non-laboured, on RA. CV: S1S2 w/RRR w/o M/G/R, dependent edema 1+ to distal extremities. GI: Abdomen soft, nontender, no bowel sounds appreciated. : Rojas catheter to BSD w/clear yellow urine. Neuro: AAOx3. Speech clear & appropriate. Follows commands. Decreased sensation to light touch to upper extremities without change. Motor function 4/5 RUE, 3+/ 5 LUE, except for hand intrinsics & extensors left 1/5 & right 2+/5, BLE 1-2/5 although knee flexion 3/5. Not as hoarse today. Medications Current Medications Current Medications Ceftriaxone Sodium 1000 mg/ Sodium Chloride 100 ml @ 200 mls/hr ONCE ONCE IV Last administered on 08/02/16 17:06; Start 08/02/16 at 16:15; Stop 08/02/16 at 16:44; Status DC Sodium Chloride (NS 1000 ml Inj) 1,000 ml @ 80 mls/hr [id number] IV Last administered on 08/02/16 17:38; Start 08/02/16 at 17:30; Stop 08/02/16 at 23:59 ; Status DC Sodium Chloride (NS Flush) 2 ml UNSCH PRN IV FLUSH FLUSH AFTER USING IV ACCESS Last administered on 08/10/16 23:29; Start 08/02/16 at 17:00 Sodium Chloride (NS Flush) 2 ml BID IV FLUSH Last administered on 08/14/16 08: 23; Start 08/02/16 at 21:00 Acetaminophen (Tylenol) 650 mg Q4H PRN PO TEMP > 100.4 Last administered on 01:49; Start 08/02/16 at 17:00 Ondansetron HCl (Zofran Inj) 4 mg Q6H PRN IVP NAUSEA OR VOMITING; Start at 17:00 Docusate Sodium (Colace) 100 mg Q12H PO Last administered on 08/14/16 06:20; Start 08/02/16 at 18:00 Magnesium Hydroxide (Milk Of Magnesia Liq) 30 ml Q12H PRN PO CONSTIPATION; Start 08/02/16 at 17:00 Temazepam (Restoril) 15 mg HS PRN PO INSOMNIA; Start 08/02/16 at 21:00 Enoxaparin Sodium 40 mg 40 mg Q24H SQ Last administered on 08/06/16 17:34; Start 08/02/16 at 18:00; Status Hold Ceftriaxone Sodium/Sodium Chloride (Rocephin Inj/NS Inj) 100 ml @ 200 mls/hr Q24H IV Last administered on 08/05/16 17:37; Start 08/03/16 at 17:00; Stop at 14:58; Status DC Benzonatate (Tessalon) 100 mg TID PRN PO COUGH Last administered on 08/13/16 18:04; Start 08/03/16 at 00:30 EZETIMIBE (Zetia) 10 mg DAILY PO Last administered on 08/14/16 08:23; Start at 09:00 Gabapentin (Neurontin) 300 mg HS PO Last administered on 08/13/16 21:23; Start 08/03/16 at 21:00 Levothyroxine Sodium (Synthroid) 50 mcg DAILY@07 PO Last administered on 06:20; Start 08/03/16 at 07:00 Tolterodine Tartrate (Detrol La) 4 mg DAILY PO Last administered on 08/14/16 08:24; Start 08/03/16 at 09:00 Valsartan (Diovan) 160 mg DAILY PO Last administered on 08/14/16 08:23; Start 08/03/16 at 09:00 Non-Formulary Medication 35 mg Q7D PO Osteoporosis Prophylaxis; Start 08/03/16 at 00:30; Stop 08/03/16 at 00:46; Status DC Ferrous Sulfate (Ferrous Sulfate) 325 mg DAILY PO NS Last administered on 08:23; Start 08/03/16 at 09:00 Lisinopril (Prinivil) 40 mg DAILY PO BPM Last administered on 08/14/16 08:27; Start 08/03/16 at 09:00 Atorvastatin Calcium (Lipitor) 20 mg DAILY PO CM Last administered on 08/03/16 12:34; Start 08/03/16 at 09:00; Stop 08/03/16 at 21:22; Status DC Tramadol HCl (Ultram) 50 mg Q8H PRN PO pain >5 Last administered on 08/14/16 15:19; Start 08/03/16 at 00:45 Gadodiamide (Omniscan Pf Inj) 14 ml STK-MED ONCE IV Last administered on 12:08; Start 08/03/16 at 12:08; Stop 08/03/16 at 12:09; Status DC Dextrose (D50w (Vial) Inj) 25 ml UNSCH PRN IV PUSH HYPOGLYCEMIA-SEE COMMENTS; Start 08/03/16 at 17:00 Glucagon (Glucagon Inj) 1 mg UNSCH PRN OTHER HYPOGLYCEMIA-SEE COMMENTS; Start 08/03/16 at 17:00 Insulin Aspart (NovoLOG SUPPLEMENTAL SCALE) 1 ACHS SLIDING SCALE SQ Last administered on 08/14/16 11:27; Start 08/03/16 at 21:00 Amlodipine Besylate (Norvasc) 5 mg DAILY PO Last administered on 08/04/16 12: 57; Start 08/04/16 at 09:00; Stop 08/05/16 at 07:10; Status DC Carvedilol (Coreg) 12.5 mg BID PO Last administered on 08/14/16 08:23; Start 08/04/16 at 21:00 Amlodipine Besylate (Norvasc) 5 mg ONCE ONCE PO Last administered on 01:33; Start 08/05/16 at 01:30; Stop 08/05/16 at 01:31; Status DC Amlodipine Besylate (Norvasc) 10 mg DAILY PO ; Start 08/05/16 at 09:00; Stop at 09:00; Status DC Nifedipine (Procardia Xl) 60 mg DAILY PO Last administered on 08/06/16 11:15; Start 08/05/16 at 09:00; Stop 08/06/16 at 12:51; Status DC Nifedipine (Procardia Xl) 90 mg DAILY PO Last administered on 08/14/16 08:23; Start 08/07/16 at 09:00 Nifedipine (Procardia Xl) 30 mg ONCE ONCE PO Last administered on 08/06/16 14 :58; Start 08/06/16 at 13:00; Stop 08/06/16 at 13:01; Status DC Famotidine (Pepcid Inj) 20 mg STK-MED ONCE .ROUTE Last administered on 10:29; Start 08/08/16 at 10:29; Stop 08/08/16 at 10:30; Status DC Fentanyl Citrate (fentaNYL INJ) 250 mcg STK-MED ONCE .ROUTE ; Start 08/08/16 at 10:31; Stop 08/08/16 at 10:32; Status DC Midazolam HCl (Versed Inj) 2 mg STK-MED ONCE .ROUTE Last administered on 10:32; Start 08/08/16 at 10:32; Stop 08/08/16 at 10:33; Status DC Thrombin (Thrombin Top Soln) 10,000 units STK-MED ONCE .ROUTE Last administered on 08/08/16 12:12; Start 08/08/16 at 10:52; Stop 08/08/16 at 10:53 ; Status DC Gelatin (Gelfoam 100 Top) 1 foam STK-MED ONCE .ROUTE Last administered on 12:12; Start 08/08/16 at 10:52; Stop 08/08/16 at 10:53; Status DC Gentamicin Sulfate (Gentamicin Inj) 240 mg STK-MED ONCE .ROUTE Last administered on 08/08/16 12:12; Start 08/08/16 at 10:52; Stop 08/08/16 at 10:53 ; Status DC Lidocaine/ Epinephrine (Xylocaine-Epi 1%-1:100,000 Inj) 40 ml STK-MED ONCE .ROUTE Last administered on 08/08/16 12:12; Start 08/08/16 at 10:52; Stop at 10:53; Status DC Cefazolin Sodium (Ancef Inj) 1,000 mg STK-MED ONCE IV Last administered on 08/08 11:51; Start 08/08/16 at 11:51; Stop 08/08/16 at 12:39; Status DC Acetaminophen (Ofirmev Inj) 1,000 mg STK-MED ONCE IV Last administered on 13:51; Start 08/08/16 at 13:38; Stop 08/08/16 at 13:39; Status DC Thrombin (Thrombin Top Soln) 10,000 units STK-MED ONCE .ROUTE Last administered on 08/08/16 13:59; Start 08/08/16 at 13:55; Stop 08/08/16 at 13:56 ; Status DC Fentanyl Citrate (fentaNYL INJ) 250 mcg STK-MED ONCE .ROUTE ; Start 08/08/16 at 14:50; Stop 08/08/16 at 14:51; Status DC Fentanyl Citrate (fentaNYL INJ) 250 mcg STK-MED ONCE .ROUTE ; Start 08/08/16 at 14:50; Stop 08/08/16 at 14:51; Status DC Hydromorphone HCl (Dilaudid Pf Inj) 0.5 mg Q3H PRN IV breakthru pain; while NPO Last administered on 08/12/16 11:44; Start 08/08/16 at 16:00 Morphine Sulfate (Morphine Inj) 4 mg Q3H PRN IV BREAKTHROUGH PAIN Last administered on 08/09/16 07:04; Start 08/08/16 at 16:00; Stop 08/09/16 at 08:36 ; Status DC Naloxone HCl (Narcan Inj) 0.4 mg UNSCH PRN IV SEE LABEL COMMENTS; Start at 16:00 Miscellaneous Information ALL NURSING DEPARTME... UNSCH PRN .XX SEE LABEL COMMENTS; Start 08/08/16 at 17:15; Stop 08/09/16 at 17:14; Status DC Morphine Sulfate (*morphine INJ PERIprocedure ONLY) 8 mg STK-MED ONCE .ROUTE Last administered on 08/08/16 17:39; Start 08/08/16 at 17:39; Stop 08/08/16 at 17:40; Status DC Methylprednisolone Sodium Succinate (SoluMEDROL INJ) 125 mg ONCE ONCE IV PUSH Last administered on 08/09/16 09:13; Start 08/09/16 at 08:45; Stop 08/09/16 at 08:46; Status DC Prednisone (Deltasone) 50 mg DAILY PO Last administered on 08/13/16 09:00; Start 08/09/16 at 13:45; Stop 08/13/16 at 13:44; Status DC Gadodiamide (Omniscan Pf Inj) 14 ml STK-MED ONCE IV Last administered on 10:27; Start 08/10/16 at 10:27; Stop 08/10/16 at 10:28; Status DC Nitrofurantoin Macrocrystals (Macrobid) 100 mg BIDPC PO Last administered on 08:23; Start 08/10/16 at 18:00 Enoxaparin Sodium (Lovenox Inj) 40 mg Q24H SQ Last administered on 08/13/16 21 :23; Start 08/12/16 at 21:00; Stop 08/14/16 at 21:00 Medical Decision Making MDM Remarks 1. POD # 6 s/p ACDF C4-5 & C6-7 levels (08/08), stable neurologically a. Severe cervical stenosis b. Severe cervical myelopathy 2. Hypertension 3. Diabetes 4. History of coronary artery disease 5. Escherichia coli UTI, treated 6. Urine culture positive for Enterococcus faecalis 7. Mild persistent signal in cord at C4-C5 level on MRI 08/10 8. Patient pending posterior decompression in order to adequately decompress the spinal cord. Plan Plan Remarks 1. Continue Quechan J cervical collar 2. Plan to take the patient to OR for a C4-C7 laminoplasty, . 3. ST for swallow eval pending 4. PT & OT evals pending 5. Continue neuro checks 6. Tx UTI per primary team. 7. Blood pressure control per primary team. 8. Nothing by mouth tonight Christos Joya MD Aug 14, 2016 16:09
[2016-08-14] MEDS: BENZONATATE 100 MG CAP PO PRN (19:15)
[2016-08-14 20:27] VITALS: BP 149/65; PULSE 64; RESP 20; TEMP 97.7; O2SAT 94
[2016-08-14] MEDS: ENOXAPARIN SODIUM 40 MG/0.4 ML SYRINGE SQ SCH (21:00)
[2016-08-14] MEDS: GABAPENTIN 300 MG CAP PO SCH (21:59)
--- NOTE | 2016-08-14 23:31 | HHI.PR ---
Subjective Remarks patient seen this afternoon around 1 PM. Says she is feeling all right. No cough today. Denies any chest pain or shortness of breath. Objective Vital Signs Date Time Temp Pulse Resp B/P Pulse Ox O2 Delivery O2 Flow Rate FiO2 08/14/16 20:27 97.7 64 20 149/65 94 08/14/16 16:00 97.9 62 19 162/78 96 08/14/16 12:00 97.8 55 18 135/63 96 08/14/16 08:00 96.8 60 17 161/72 96 08/14/16 04:32 97.6 60 18 165/74 96 08/14/16 01:18 97.6 76 20 147/71 97 I/O 08/13/16 08/13/16 08/13/16 08/14/16 08/14/16 08/14/16 07:00 15:00 23:00 07:00 15:00 23:00 Intake Total 240 ml 480 ml Output Total 2000 ml 1000 ml 2100 ml 600 ml Balance -2000 ml -760 ml -2100 ml -120 ml Intake Oral 240 ml 480 ml Output Urine Total 2000 ml 1000 ml 2100 ml 600 ml # Bowel Movements 3 1 1 Result Diagram: 08/14/16 0654 08/14/16 0654 Objective Remarks GENERAL: patient sitting up in bed. Cervical collar in place. Appears comfortable.exam unchanged from yesterday. SKIN: Warm and dry. HEAD: Normocephalic. EYES: No scleral icterus. No injection or drainage. NECK: Supple, trachea midline. No JVD. CARDIOVASCULAR: Regular rate and rhythm without murmurs, gallops, or rubs. RESPIRATORY: Breath sounds equal bilaterally. No accessory muscle use. GASTROINTESTINAL: Abdomen soft, non-tender, nondistended. MUSCULOSKELETAL: No cyanosis, or edema. BACK: Nontender without obvious deformity. No CVA tenderness. A/P Assessment and Plan Ms. Meyers is an 81 year-old female who presented to the emergency room on 08/02 after being seen by her neurologist Dr. Mack in [place] for progressively worsening weakness in lower legs over the past 7 months. Patient is currently unable to walk. Cervical spinal stenosis with progressive bilateral lower extremity weakness - Per Dr. Mack's documentation (follow up office note dated 4/18/17-copy on chart), lumbar puncture showed elevated protein in the CSF. - consulted neurology, Dr. Che ordered MRI, MRI showed severe multilevel cord compression due to spinal stenosis and disk bulging - Consulted Dr. Eddy, performed operative intervention on 08/08. Postoperative care per neurosurgery. - Tramadol as needed for pain with IV Dilaudid as needed for breakthrough - Follow-up rehabilitation recommendations =plan for repeat surgery 08/15. Allergic reaction to morphine on 08/09 - Improved with IV Solu-Medrol - s/p prednisone 50 mg 4 days =avoid morphine. //Dysphagia: Secondary to surgery vs allergic reaction - Speech therapy consulted, diet per speech therapy - Improved //UTI Urine culture 08/02 with Escherichia coli, treated with IV ceftriaxone 4 days. Repeat urine ordered 08/08 with enterococcus Faecalis The patient is asymptomatic and has no fever or leukocytosis -continue Course of Macrobid until 08/20 //Hypertension: Better controlled. - Continued home lisinopril, carvedilol, and valsartan - provide pain management PRN - Started on nifedipine, titrated dose to 90 mg daily - blood pressure acceptable. Continue to monitor. //Diabetes mellitus, reasonably controlled -Accu checks with SSI //DVT prophylaxis - SCDs - Resume chemical prophylaxis when okay with surgery Plan for 2nd surgery on Tuesday 08/15 ( DR Cindi Trevino) Discharge Planning repeat surgery planned for 08/15. Clinton Kc MD Aug 14, 2016 23:31
[2016-08-15 01:25] VITALS: BP 146/64; PULSE 59; RESP 18; TEMP 96.8; O2SAT 99
[2016-08-15 05:44] VITALS: BP 163/70; PULSE 69; RESP 18; TEMP 96.7; O2SAT 99
[2016-08-15] MEDS: DOCUSATE SODIUM 100 MG CAP PO SCH ×2 (06:27→18:00)
[2016-08-15] MEDS: LEVOTHYROXINE SODIUM 50 MCG TAB PO SCH (06:28)
[2016-08-15] MEDS: INSULIN ASPART SUPPLEMENTAL SCALE SQ SCH ×4 (06:31→23:15)
[2016-08-15 08:40] VITALS: BP 152/67; PULSE 61; RESP 20; TEMP 96.7; O2SAT 96
[2016-08-15] MEDS ORDERED: SODIUM CHLORID 0.9% 500 ML IV PRN (10:00)
[2016-08-15] MEDS ORDERED: LACTATED RINGER'S 1000 ML IV PRN (10:00)
[2016-08-15] MEDS ORDERED: INSULIN HUMAN REGULAR 1,000 UNITS/10 ML VIAL SQ PRN (10:00)
[2016-08-15] MEDS ORDERED: METOPROLOL TARTRATE 25 MG TAB PO PRN (10:00)
[2016-08-15] MEDS ORDERED: CHLORHEXIDINE GLUCONATE 2 % 1 PACK (2 CLOTHS) TOPICAL PRN (10:00)
[2016-08-15] MEDS ORDERED: POVIDONE IODINE 5% (ANTISEPSIS KIT) 4 APPLICATIONS EACH NARE PRN (10:00)
[2016-08-15] MEDS: LISINOPRIL 20 MG TAB PO SCH (10:07)
[2016-08-15] MEDS: EZETIMIBE 10 MG TAB PO SCH (10:07)
[2016-08-15] MEDS: CARVEDILOL 12.5 MG TAB PO SCH ×2 (10:08→23:03)
[2016-08-15] MEDS: VALSARTAN 160 MG TAB PO SCH (10:08)
[2016-08-15] MEDS: FERROUS SULFATE 325 MG (65 MG ELEMENTAL IRON) TAB PO SCH (10:08)
[2016-08-15] MEDS: TOLTERODINE TARTRATE 4 MG CAP LA PO SCH (10:08)
[2016-08-15] MEDS: NITROFURANTOIN MONOHYD MACROCR 100 MG CAP PO SCH ×2 (10:08→23:05)
[2016-08-15] MEDS: NIFEdipine 90 MG SUSTAINED RELEASE TAB PO SCH (10:08)
[2016-08-15] MEDS: SODIUM CHLORIDE 0.9% FLUSH 10 ML FLUSH IV FLUSH SCH ×2 (10:08→21:00)
[2016-08-15] MEDS ORDERED: ePHEDrine/NS 25 MG/5 ML SYR IV ONE (12:00)
[2016-08-15] MEDS ORDERED: PROPOFOL 200 MG/20 ML AMP IV ONE (12:00)
[2016-08-15] MEDS ORDERED: ONDANSETRON HCL 4 MG/2 ML VIAL IV PUSH ONE (12:00)
[2016-08-15] MEDS ORDERED: LACTATED RINGER'S 1000 ML INJ 4,000 ML IV ONE (12:00)
[2016-08-15] MEDS ORDERED: GELFOAM SIZE 100 ONE (12:32)
[2016-08-15] MEDS ORDERED: THROMBIN (TOPICAL) 5,000 UNIT VIAL ONE (12:32)
[2016-08-15] MEDS ORDERED: GENTAMICIN SULFATE 80 MG/2 ML VIAL ONE (12:33)
[2016-08-15] MEDS ORDERED: LIDOCAINE 1%/EPINEPHrine 1:100,000 SOLN 20 ML VIAL ONE ×2 (12:33→12:40)
[2016-08-15] MEDS ORDERED: SUGAMMADEX SODIUM 200 MG/2 ML VIAL IV PUSH ONE ×2 (13:07)
[2016-08-15] MEDS ORDERED: HYDROmorphone HCL PF 2 MG/ML VIAL ONE (13:07)
[2016-08-15] MEDS ORDERED: ACETAMINOPHEN 1000 MG/100 ML VIAL IV ONE (13:07)
[2016-08-15] MEDS ORDERED: fentaNYL CITRATE 250 MCG/5 ML AMP ONE (13:07)
[2016-08-15] MEDS ORDERED: ceFAZolin INJ 1,000 MG VIAL IV ONE ×2 (14:38→18:25)
[2016-08-15 16:39] LABS: BLOOD GAS BASE EXCESS 1.8 mmol/L (-2-2); BLOOD GAS CARBOXYHEMOGLOBIN 2.1 % (0-4); BLOOD GAS HCO3 25 mmol/L (22-26); BLOOD GAS METHEMOGLOBIN 1.2 % (0-2); BLOOD GAS O2 HGB SATURATION 97 % (90-100); BLOOD GAS OXYGEN CONTENT 13.5 Vol % (12.0-20.0); BLOOD GAS PCO2 36 mmHg (38-42); BLOOD GAS PO2 234 mmHg (61-120); BLOOD GAS TOTAL HGB 9.5 G/DL (12.0-16.0); CRITICAL VALUE NO; FIO2 60 %; OXYGEN DEVICE O.R. ABG; STAT YES; TEMP CORR TO 98.6
--- NOTE | 2016-08-15 18:16 | HHI.PR ---
Subjective Remarks Attempted to see patient all afternoon however she has been in OR. Called PACU at 1815hrs who reports no update on when patient will be out of surgery. Chart and vital signs reviewed. Ordered ABG. Objective Vitals Vital Signs Date Time Temp Pulse Resp B/P Pulse Ox O2 Delivery O2 Flow Rate FiO2 08/15/16 08:40 96.7 61 20 152/67 96 08/15/16 05:44 96.7 69 18 163/70 99 08/15/16 01:25 96.8 59 18 146/64 99 08/14/16 20:27 97.7 64 20 149/65 94 I/O 08/14/16 08/14/16 08/14/16 08/15/16 08/15/16 08/15/16 07:00 15:00 23:00 07:00 15:00 23:00 Intake Total 480 ml Output Total 2100 ml 600 ml 575 ml 625 ml Balance -2100 ml -120 ml -575 ml -625 ml Intake Oral 480 ml Output Urine Total 2100 ml 600 ml 575 ml 625 ml # Bowel Movements 1 0 Result Diagram: 08/14/16 0654 08/14/16 0654 Imaging Last Impressions Cervical Spine MRI 08/10/16 0000 Signed Impressions: Service Date/Time: Wednesday, August 10, 2016 10:03 - CONCLUSION: 1. Minimal persistent signal in the cord at the C4-C5 level. 2. There is no evidence for an epidural impression. Asad Rajan MD FACR Cervical Spine X-Ray 08/08/16 0000 Signed Impressions: Service Date/Time: Monday, August 08, 2016 11:51 - CONCLUSION: Status post anterior cervical fusion at the C4-5 and C6-7 levels. Shaheed Braxton MD Thoracic Spine MRI 08/03/16 0951 Signed Impressions: Service Date/Time: Wednesday, August 03, 2016 11:28 - CONCLUSION: Moderate spinal stenosis at the T10-T11 level. There is minimal anterior wedging of the T12 vertebral body old by MRI. Asad Rajan MD FACR Head CT 08/02/16 0000 Signed Impressions: Service Date/Time: Tuesday, August 02, 2016 16:14 - CONCLUSION: 1. No acute intracranial abnormality. 2. Opacification of the left ethmoid air cells. Darrell Ashley MD Objective Remarks Unable to perform exam today. Procedures 08/08/[address] Eddy - C4 5 and C6 7 anterior cervical discectomy, resection herniated nucleus pulposus and posterior osteophytic disc complexes- microtechnique. C4 5 and C6 7 anterior interbody fusion with composite allograft bone. C4 5 and C6 7 anterior cervical instrumentation Medications and IVs Current Medications Medications (Trade) Dose Ordered Sig/Jin Route Start Time Stop Time Status Last Admin (NS Flush) 2 ml UNSCH PRN IV FLUSH 08/02/16 17:00 08/10/16 23:29 (NS Flush) 2 ml BID IV FLUSH 08/02/16 21:00 08/15/16 10:08 (Tylenol) 650 mg Q4H PRN PO 08/02/16 17:00 08/08/16 01:49 (Zofran Inj) 4 mg Q6H PRN IVP 08/02/16 17:00 (Colace) 100 mg Q12H PO 08/02/16 18:00 08/15/16 06:27 (Milk Of Magnesia Liq) 30 ml Q12H PRN PO 08/02/16 17:00 (Restoril) 15 mg HS PRN PO 08/02/16 21:00 (Lovenox Inj) 40 mg Q24H SQ 08/02/16 18:00 Hold 08/06/16 17:34 (Tessalon) 100 mg TID PRN PO 08/03/16 00:30 08/14/16 19:15 (Zetia) 10 mg DAILY PO 08/03/16 09:00 08/15/16 10:07 (Neurontin) 300 mg HS PO 08/03/16 21:00 08/14/16 21:59 (Synthroid) 50 mcg DAILY@07 PO 08/03/16 07:00 08/15/16 06:28 (Detrol La) 4 mg DAILY PO 08/03/16 09:00 08/15/16 10:08 (Diovan) 160 mg DAILY PO 08/03/16 09:00 08/15/16 10:08 (Ferrous Sulfate) 325 mg DAILY PO 08/03/16 09:00 08/15/16 10:08 (Prinivil) 40 mg DAILY PO 08/03/16 09:00 08/15/16 10:07 (Ultram) 50 mg Q8H PRN PO 08/03/16 00:45 08/14/16 23:28 (D50w (Vial) Inj) 25 ml UNSCH PRN IV PUSH 08/03/16 17:00 (Glucagon Inj) 1 mg UNSCH PRN OTHER 08/03/16 17:00 (Coreg) 12.5 mg BID PO 08/04/16 21:00 08/15/16 10:08 (Procardia Xl) 90 mg DAILY PO 08/07/16 09:00 08/15/16 10:08 (Dilaudid Pf Inj) 0.5 mg Q3H PRN IV 08/08/16 16:00 08/12/16 11:44 (Narcan Inj) 0.4 mg UNSCH PRN IV 08/08/16 16:00 Nitrofurantoin Macrocrystals 100 mg 100 mg BIDPC PO 08/10/16 18:00 08/15/16 10:08 Lactated Ringer's 1,000 ml @ 30 mls/hr Q24H PRN IV 08/15/16 10:00 08/18/16 09:59 (NS 500 ml Inj) 500 ml @ 30 mls/hr [id number] PRN IV 08/15/16 10:00 08/18/16 09:59 A/P Problem List: (1) CIDP (chronic inflammatory demyelinating polyneuropathy) ICD Code: G61.81 Status: Acute (2) Leg weakness, bilateral ICD Code: R29.898 Status: Acute (3) UTI (urinary tract infection) ICD Code: N39.0 Status: Acute (4) HTN (hypertension) ICD Code: I10 Status: Acute Assessment and Plan Ms. Meyers is an 81 year-old female who presented to the emergency room on 08/02 after being seen by her neurologist Dr. Mack in [place] for progressively worsening weakness in lower legs over the past 7 months. Patient is currently unable to walk. Cervical spinal stenosis with progressive bilateral lower extremity weakness - Per Dr. Mack's documentation (follow up office note dated 08/02/16-copy on chart), lumbar puncture showed elevated protein in the CSF. - consulted neurology, Dr. Che ordered MRI, MRI showed severe multilevel cord compression due to spinal stenosis and disk bulging - Consulted Dr. Eddy, performed operative intervention on 08/08. Postoperative care per neurosurgery. - Tramadol as needed for pain with IV Dilaudid as needed for breakthrough - Follow-up rehabilitation recommendations - undergoing repeat surgery today 08/15, multiple attempts to see patient today however was unable to see patient as she was in OR all afternoon/evening Allergic reaction to morphine on 08/09 - Improved with IV Solu-Medrol - s/p prednisone 50 mg 4 days - avoid morphine. //Dysphagia: Secondary to surgery vs allergic reaction - Speech therapy consulted, diet per speech therapy - Improved //UTI - Urine culture 08/02 with Escherichia coli, treated with IV ceftriaxone 4 days. - Repeat urine ordered 08/08 with enterococcus Faecalis - The patient is asymptomatic and has no fever or leukocytosis - continue Course of Macrobid until 08/20 //Hypertension: Better controlled. - Continued home lisinopril, carvedilol, and valsartan - provide pain management PRN - Started on nifedipine, titrated dose to 90 mg daily - blood pressure acceptable. Continue to monitor. //Diabetes mellitus, reasonably controlled -Accu checks with SSI //DVT prophylaxis - SCDs - Resume chemical prophylaxis when okay with surgery Discussed with Dr. Kc. Problem Qualifiers (1) UTI (urinary tract infection): Qualified Code: N30.00 - Acute cystitis without hematuria (2) HTN (hypertension): Qualified Code: I10 - Essential hypertension Gricelda Chaves PA-C August 15, 2016 18:16
[2016-08-15] MEDS ORDERED: DO NOT ADM ANY ANTICOAGULANT DRUGS PRN (18:53)
[2016-08-15 18:55] VITALS: O2SAT 100
--- NOTE | 2016-08-15 19:13 | RADRPT ---
EXAM DATE/TIME: 08/15/2016 14:52 [facility] COMPARISON: SPINE CERVICAL LTD (AP&LAT), August 08, 2016, 11:51. MRI CERVICAL SPINE W & W/O CONTRAST, August 10, 017, 10:03. INDICATIONS : Neck pain. MEDICAL HISTORY : Hypertension. Diabetes mellitus type 2. SURGICAL HISTORY : Discectomy, lumbar. CABG Fusion, cervical. ENCOUNTER: Initial ACUITY: 1 day PAIN SCORE: Non-responsive. LOCATION: Bilateral cervical. FINDINGS: Images in the operating room again show evidence of recent discectomy and fusion procedure with inter body and anterior instrumentation at C4/C5 and C6/C7. Posterior instrumentation has been placed from C4-C7. Alignment unchanged, within normal limits. CONCLUSION: Interim posterior instrumentation placement from C4-C7. On August 08, the patient had discectomy wit h interbody and anterior instrumentation placed at C4/C5 and C6/C7. Normal alignment. Kiko Meneses MD on August 15, 2016 at 19:08 Board Certified Radiologist. This report was verified electronically.
--- NOTE | 2016-08-15 19:24 | PD.OP ---
Operative Report Date of Surgery: August 15, 2016 Preoperative Diagnosis: (1) Cervical spinal stenosis (2) Cervical disc disease with myelopathy Severe cervical stenosis Severe cervical myelopathy Persistent dorsal spinal cord compression status post initial C4 5 and C6 7 anterior discectomy and interbody fusion. Postoperative Diagnosis: (1) Cervical spinal stenosis (2) Cervical disc disease with myelopathy Severe cervical stenosis Severe cervical myelopathy Persistent dorsal spinal cord compression status post initial C4 5 and C6 7 anterior discectomy and interbody fusion. Procedure: 1. Part 2 of a planned two part procedure 2. Bilateral C4, C5, C6, C7 decompressive semi-laminectomy, medial facetectomy for dorsal spinal cord decompression 3. Bilateral C4-C7 posterior instrumentation 4. Bilateral C7 pedicle screw fixation 5. Bilateral C4-C7 posterior fusion with local autograft and allograft bone Anesthesia: Gen. Surgeon: Sav Eddy Instrumentation Designer(s): Yonathan Rodriguez Operation and Findings: Procedure in detail: The patient was brought into the operating room and general endotracheal anesthesia induced without difficulty. Lines were established by anesthesia Knee high sequential compression devices were placed Appropriate timeout procedure was performed with all personnel present and in agreement The Berkowitz 3 point fixation device was placed. The patient was in a cervical collar for positioning Leads for intraoperative neuro monitoring were placed in a baseline study obtained The patient was turned into prone position on the 3080 table on the Titi frame with the undersigned maintaining control of the head and neck. The head and neck were secured to the operating room table with the Berkowitz adapter with the neck slightly flexed with 3-4 fingerbreadths between the chin and chest. The neck position was checked with intraoperative C-arm and felt to be satisfactory. The cervical collar was removed. All extremities were appropriately padded. The back of the head and neck were shaved with clippers and sterilely prepped and draped. 1% Xylocaine with epinephrine was used for local infiltration over the incision site was made in the midline posterior neck and carried sharply down to the spinous processes of . The microscope was used as needed during the decompression portion of the procedure.. On the right and left side the posterior muscle attachments and fascia were incised with the Bovie and elevated away from the lamina and facet and spinous processes at the C4-C7 levels with a ramos elevator out to the lateral margin of the facets. The TPS drill with a 5 mm bone bur followed by the 4 mm shonna bur was used to thin out the ventral aspect of the lamina at the inferior C4, cranial and caudal aspect of C5 and C6, and cephalad aspect of C7 lamina out to the level of the pedicle . The removal of primarily the ventral aspect of the lamina at the C4 5, C5 6, C6 7 levels was then completed with the 3 mm thin footplate Kerrison rongeur. . There appeared to be at least moderate hypertrophy of the facet and ligamentum flavum causing dorsal compression on the posterior spinal canal. Hypertrophied ligamentum flavum was elevated away from the dura with the thin ligament dissector and resected with the Kerrison rongeur. The dorsal lateral thecal sac appeared well decompressed at the end of the laminectomy portion of the procedure with good pulsations of the CSF space. Next, using anatomic landmarks and AP and lateral C-arm imaging, the entry point for the bilateral C4, C5, C6 lateral mass screw and bilateral C7 pedicle screws was started with the TPS drill with the M8 bur, followed by drilling to 12 mm with the drill and guide, then probing with ball-tipped probe prior to tapping and placing the 12 mm variable angle titanium 3.5 mm screw. The facet joint and lateral mass bilateral at the C4 5, C5 6 and C6 7 levels were decorticated with the TPS drill with the M8 gregg, followed by placement of the retained lamina autograft and a small amount of demineralized bone matrix packed in place over the decorticated facet and lateral mass on each side. The appropriate length titanium mitzi was then secured at the bilateral C4-C7 screws using the locking caps and the torque wrench and antitorque device. The entire construct was checked with AP and lateral C-arm imaging and felt to be satisfactory. The region was well irrigated with antibiotic irrigation. Bleeding was carefully controlled with bipolar forceps A 7 mm flat fluted drain was left at the operative site and brought out through an incision in the upper thoracic region and secured to the skin with nylon suture The closure was performed with 0 Vicryl interrupted for the deep and superficial fascia with 3-0 Vicryl interrupted subcutaneous closure and 4-0 Vicryl subcutaneous closure. A dressing of sterile Mastisol and Steri-Strips and a Primapore dressing was placed. The patient was placed back in a cervical collar and released from the Scarville adapter and turned back into supine position on the recovery room bed. The Berkowitz 3 point fixation device was then removed. The patient was taken to recovery room in stable condition All counts were correct at the end of the case. Estimated blood loss was 600 cc No specimen was sent to pathology Neural monitoring remained stable during the procedure Sav Eddy MD August 15, 2016 19:24
[2016-08-15 20:34] LABS: BLOOD GAS BASE EXCESS 0.7 mmol/L (-2-2); BLOOD GAS CARBOXYHEMOGLOBIN 1.7 % (0-4); BLOOD GAS HCO3 25 mmol/L (22-26); BLOOD GAS METHEMOGLOBIN 0.9 % (0-2); BLOOD GAS O2 HGB SATURATION 97 % (90-100); BLOOD GAS OXYGEN CONTENT 14.2 Vol % (12.0-20.0); BLOOD GAS PCO2 44 mmHg (38-42); BLOOD GAS PO2 181 mmHg (61-120); BLOOD GAS TOTAL HGB 10.1 G/DL (12.0-16.0); CRITICAL VALUE NO; DRAW SITE ART LINE; FIO2 40 %; OXYGEN DEVICE 450/8/PEEP 5/; STAT YES; TEMP CORR TO 98.6
[2016-08-15 21:06] VITALS: O2SAT 100; O2SAT 99
[2016-08-15 22:00] VITALS: BP 167/58; PULSE 69; RESP 18; TEMP 98; O2SAT 100
[2016-08-15] MEDS: GABAPENTIN 300 MG CAP PO SCH (23:03)
[2016-08-16] MEDS: traMADol HCL 50 MG TAB PO PRN ×3 (00:42→20:54)
[2016-08-16] MEDS: HYDROmorphone HCL PF 1 MG/ML VIAL IV PRN ×3 (05:11→21:59)
[2016-08-16] MEDS: LEVOTHYROXINE SODIUM 50 MCG TAB PO SCH (05:11)
[2016-08-16] MEDS: DOCUSATE SODIUM 100 MG CAP PO SCH ×2 (05:11→17:33)
[2016-08-16 05:15] VITALS: BP 155/69; PULSE 57; RESP 20; TEMP 98; O2SAT 100
[2016-08-16] MEDS: INSULIN ASPART SUPPLEMENTAL SCALE SQ SCH ×4 (06:58→20:29)
[2016-08-16 08:00] VITALS: BP 154/68; PULSE 62; RESP 20; TEMP 96.3; O2SAT 100
[2016-08-16] MEDS: VALSARTAN 160 MG TAB PO SCH (08:26)
[2016-08-16] MEDS: EZETIMIBE 10 MG TAB PO SCH (08:26)
[2016-08-16] MEDS: NIFEdipine 90 MG SUSTAINED RELEASE TAB PO SCH (08:27)
[2016-08-16] MEDS: FERROUS SULFATE 325 MG (65 MG ELEMENTAL IRON) TAB PO SCH (08:27)
[2016-08-16] MEDS: TOLTERODINE TARTRATE 4 MG CAP LA PO SCH (08:27)
[2016-08-16] MEDS: NITROFURANTOIN MONOHYD MACROCR 100 MG CAP PO SCH (08:27)
[2016-08-16] MEDS: CARVEDILOL 12.5 MG TAB PO SCH ×2 (08:27→20:54)
[2016-08-16] MEDS: SODIUM CHLORIDE 0.9% FLUSH 10 ML FLUSH IV FLUSH SCH ×2 (08:27→21:59)
[2016-08-16] MEDS: LISINOPRIL 20 MG TAB PO SCH (08:28)
[2016-08-16 10:41] LABS: BICARBONATE 28.2 MEQ/L (21.0-32.0); POTASSIUM 4.2 MEQ/L (3.5-5.1)
[2016-08-16 10:52] LABS: BASOPHIL % 0.5 % (0.0-2.0); EOSINOPHIL # 0.2 TH/MM3 (0-0.4); EOSINOPHIL % 3.1 % (0.0-4.0); HEMATOCRIT 27.7 % (35.0-46.0); HEMO FLAGS DIFF FINAL; LYMPH % 18.3 % (9.0-44.0); LYMPHOCYTE # 1.3 TH/MM3 (1.0-4.8); MEAN CELL VOLUME 89.2 FL (80.0-100.0); MEAN CORPUSCULAR HGB CONC 33.6 % (32.0-36.0); MONO % 9.7 % (0.0-8.0); NEUT % 68.4 % (16.0-70.0); PLATELET COUNT 173 TH/MM3 (150-450); RED BLOOD COUNT 3.11 MIL/MM3 (4.00-5.30); RED CELL DISTRIBUTION WIDTH 14.3 % (11.6-17.2); WHITE BLOOD COUNT 7.3 TH/MM3 (4.0-11.0)
[2016-08-16 11:37] VITALS: O2SAT 100
[2016-08-16] MEDS ORDERED: NIFE90TA2 PO (11:57)
[2016-08-16 12:00] VITALS: BP 143/63; PULSE 60; RESP 20; TEMP 96.7; O2SAT 100
--- NOTE | 2016-08-16 14:34 | HHI.PR ---
Subjective Remarks Follow-up for cervical stenosis. The patient is doing well after surgery yesterday. She is currently oriented 3. She states that she is moving her hands and arms better. She denies any chest pain, shortness breath, nausea, vomiting, or swallowing difficulties. She states she had a BM 2 days ago. Objective Vitals Vital Signs Date Time Temp Pulse Resp B/P Pulse Ox O2 Delivery O2 Flow Rate FiO2 08/16/16 12:00 96.7 60 20 143/63 100 08/16/16 11:37 100 Nasal Cannula 3.00 08/16/16 08:00 96.3 62 20 154/68 100 Arterial Line Manual Cuff/Auscultation 08/16/16 05:15 98.0 57 20 155/69 100 08/15/16 22:00 98.0 69 18 167/58 100 08/15/16 21:15 98.2 71 16 172/71 100 Nasal Cannula 4 08/15/16 21:06 99 Nasal Cannula 4 08/15/16 21:06 100 Nasal Cannula 4.00 08/15/16 21:00 68 15 162/55 100 Mechanical Ventilator 40 168/73 08/15/16 20:45 63 11 158/52 100 Mechanical Ventilator 40 08/15/16 20:30 60 10 158/51 100 Mechanical Ventilator 40 08/15/16 20:15 62 10 157/52 100 Mechanical Ventilator 40 08/15/16 20:00 58 9 168/68 100 Mechanical Ventilator 40 153/51 08/15/16 19:45 59 11 152/52 100 Mechanical Ventilator 40 08/15/16 19:30 59 8 148/51 100 Mechanical Ventilator 40 08/15/16 19:15 40 08/15/16 19:15 97.0 57 8 164/72 99 Mechanical Ventilator 40 157/52 08/15/16 19:01 97.4 54 9 157/52 100 Mechanical Ventilator 40 08/15/16 18:55 100 40 I/O 08/15/16 08/15/16 08/15/16 08/16/16 08/16/16 08/16/16 07:00 15:00 23:00 07:00 15:00 23:00 Intake Total 4200 ml 0 ml Output Total 575 ml 625 ml 1395 ml 940 ml Balance -575 ml -625 ml 2805 ml -940 ml Intake Oral 0 ml 0 ml IV Total 200 ml Other 4000 ml Output Urine Total 575 ml 625 ml 250 ml 900 ml Drainage Total 95 ml 40 ml Estimated Blood Loss 600 ml Other 450 ml # Bowel Movements 0 0 0 Result Diagram: 08/16/1633 08/16/16 0933 Imaging Last Impressions Cervical Spine X-Ray 08/15/16 0000 Signed Impressions: Service Date/Time: Monday, August 15, 2016 14:52 - CONCLUSION: Interim posterior instrumentation placement from C4-C7. On August 08, the patient had discectomy with interbody and anterior instrumentation placed at C4/C5 and C6/C7. Normal alignment. Kiko Meneses MD Cervical Spine MRI 08/10/16 0000 Signed Impressions: Service Date/Time: Wednesday, August 10, 2016 10:03 - CONCLUSION: 1. Minimal persistent signal in the cord at the C4-C5 level. 2. There is no evidence for an epidural impression. Asad Rajan MD FACR Thoracic Spine MRI 08/03/16 0951 Signed Impressions: Service Date/Time: Wednesday, August 03, 2016 11:28 - CONCLUSION: Moderate spinal stenosis at the T10-T11 level. There is minimal anterior wedging of the T12 vertebral body old by MRI. Asad Rajan MD FACR Head CT 08/02/16 0000 Signed Impressions: Service Date/Time: Tuesday, August 02, 2016 16:14 - CONCLUSION: 1. No acute intracranial abnormality. 2. Opacification of the left ethmoid air cells. Darrell Ashley MD Objective Remarks GENERAL: Well-developed well-nourished. In no acute distress. Cervical collar in place. Neck with surgical dressing in place. SKIN: Warm and dry. No lesions noted. HEENT: Normocephalic. Pupils equal and round. Mucous membranes pink and moist. CARDIOVASCULAR: Regular rate and rhythm. No murmur appreciated. RESPIRATORY: No accessory muscle use. Clear to auscultation. Breath sounds equal bilaterally. GASTROINTESTINAL: Abdomen soft, non-tender, nondistended. Bowel sounds x4. MUSCULOSKELETAL: No obvious deformities. No clubbing or cyanosis. No edema. NEUROLOGICAL: Awake and alert. Moves upper extremities spontaneously. Lower extremity weakness. Normal speech. PSYCHIATRIC: Appropriate mood and affect; insight and judgment normal. Procedures 08/08/[address] Nunu - C4 5 and C6 7 anterior cervical discectomy, resection herniated nucleus pulposus and posterior osteophytic disc complexes- microtechnique. C4 5 and C6 7 anterior interbody fusion with composite allograft bone. C4 5 and C6 7 anterior cervical instrumentation A/P Problem List: (1) CIDP (chronic inflammatory demyelinating polyneuropathy) ICD Code: G61.81 Status: Acute (2) Leg weakness, bilateral ICD Code: R29.898 Status: Acute (3) UTI (urinary tract infection) ICD Code: N39.0 Status: Resolved (4) HTN (hypertension) ICD Code: I10 Status: Acute Assessment and Plan [facility] 81 [facility] who presented to the emergency room on after being seen by her neurologist Dr. Mack in [place] for progressively worsening weakness in lower legs over the past 7 months. Patient is currently unable to walk. Cervical spinal stenosis with progressive bilateral lower extremity weakness - Per Dr. Mack's documentation (follow up office note dated 08/02/16-copy on chart), lumbar puncture showed elevated protein in the CSF. - consulted neurology, Dr. Che ordered MRI, MRI showed severe multilevel cord compression due to spinal stenosis and disk bulging - Consulted Dr. Eddy, performed operative intervention on 08/08. Postoperative care per neurosurgery. - Tramadol as needed for pain with IV Dilaudid as needed for breakthrough - Follow-up rehabilitation recommendations - Had repeat surgery today 08/15 - Start postoperative bowel regimen Allergic reaction to morphine on 08/09 - Improved with IV Solu-Medrol - s/p prednisone 50 mg 4 days - avoid morphine. //Dysphagia: Secondary to surgery vs allergic reaction - Speech therapy consulted, diet per speech therapy - Improved //UTI - Urine culture 08/02 with Escherichia coli, treated with IV ceftriaxone 4 days. - Repeat urine ordered 08/08 with enterococcus Faecalis - The patient is asymptomatic and has no fever or leukocytosis - Received Course of Macrobid 7 days, DC //Hypertension: Better controlled. - Continued home lisinopril, carvedilol, and valsartan - provide pain management PRN - Started on nifedipine, titrated dose to 90 mg daily - blood pressure acceptable. Continue to monitor. //Diabetes mellitus, reasonably controlled -Accu checks with SSI //DVT prophylaxis - SCDs - Resume chemical prophylaxis when okay with surgery Written by Kory Montemayor, acting as scribe for Dr. Kc on 08/16/16 at 14:34. Discharge Planning Follow-up neurosurgery and rehabilitation recommendations. Attending Statement This note was transcribed by scribe [Kory Montemayor]. I, Dr. Clinton Kc personally performed the history, physical exam, and medical decision making; and confirmed the accuracy of the information in the transcribed note. Authenticated by Dr. Clinton Kc on 08/17/16 at 09:09. Problem Qualifiers (1) UTI (urinary tract infection): Qualified Code: N30.00 - Acute cystitis without hematuria (2) HTN (hypertension): Qualified Code: I10 - Essential hypertension Kory Montemayor August 16, 2016 14:34 Clinton Kc MD August 17, 2016 09:09
[2016-08-16] MEDS ORDERED: POLYETHYLENE GLYCOL 17 GM PKG PO ONE (15:00)
[2016-08-16] MEDS: SENNOSIDES 8.6 MG TAB PO SCH (15:16)
[2016-08-16 16:00] VITALS: BP 155/68; PULSE 60; RESP 20; TEMP 96.3; O2SAT 100
--- NOTE | 2016-08-16 16:57 | HHI.NSPN ---
(Jeff Talbert Judit DANGELO) Note Status Status: Progress Note (Jeff Talbert) Interval History Interval History 08/03: 81-year-old female with history of previous low back surgery in 1994 for treatment of low back and lower extremity pain symptoms. She initially did very well following surgery for many years. Approximately 7 months ago she developed onset of progressive gait difficulty, severe enough to require her to start using a walker. By approximate 3-4 months ago she continued to experience further progressive gait difficulty and started falling even despite the walker, as well as onset of numbness and weakness in her hands with loss of upper extremity coordination. At that time she had to start using a wheelchair to mobilize. She was seen for further medical evaluation and indicates no further testing was done. She subsequently was seen at [facility] approximately 3 months ago and was admitted for 3 days. She is uncertain whether an MRI was done. She was subsequently discharged to inpatient rehabilitation at [facility] where she has remained for the past 3 months. She has had recent outpatient evaluation with neurology. She indicates that follow-up visit with her primary care physician recently prompted a visit to the emergency room yesterday. 08/04: Patient states she is doing well this afternoon when seen. Pain is controlled with medication and rates it a 2 out of 10. Still with numbness, tingling and weakness to the extremities. 08/05: Patient states she is doing good this morning, pain is controlled with meds, some improvement in numbness & tingling. 08/08: Patient to OR for ACDF C4-5 & C6-7 levels. 08/09: POD # 1, patient states that she has a sore throat and pain at the surgical incision. She denies any neck pain. She stated she swelled up and had difficulty breathing due to steroids which she is allergic to. It has improved after having received medication for it per the patient. Patient did receive Solumedrol this morning but no other medications expected for an allergic reaction. 08/10: POD # 2, patient states sore throat has resolved but still has hoarseness. Still with numbness to BUE that is about the same. No pain to the neck or extremities. 08/11: POD # 3, doing well in overall but has a sore throat today. The numbness to the UE remains the same. 08/12: POD # 4, overall doing well. Throat still slightly sore. During the night she stated she was not able to feel her fingers but now it is back to her usual numbness. 08/13: POD # 5, overall doing well. No new acute issues 08/14: POD # 6,doing well. No new acute issues 08/15: Patient to OR for C4-C7 laminoplasty 08/16: POD # 8/, patient doing well but she does state her neck is sore and she is not able to move her head. (Jfef Talbert) Labs, Micro, & Vital Signs Results Allergies Coded Allergies Type Severity Reaction Last Updated Verified Morphine Allergy Severe Shortness of Breath 08/09/16 Yes Neosporin Allergy Severe Shortness of Breath 08/09/16 Yes Recent Impressions Cervical Spine X-Ray 08/15/16 0000 Signed Impressions: Service Date/Time: Monday, August 15, 2016 14:52 - CONCLUSION: Interim posterior instrumentation placement from C4-C7. On August 08, the patient had discectomy with interbody and anterior instrumentation placed at C4/C5 and C6/C7. Normal alignment. Kiko Meneses MD //////// 06:00 18:00 06:00 18:00 06:00 18:00 Intake Total 480 ml 4200 ml 720 ml Output Total 2100 ml 600 ml 575 ml 625 ml 2335 ml 720 ml Balance -2100 ml -120 ml -575 ml -625 ml 1865 ml 0 ml Intake Oral 480 ml 0 ml 720 ml IV Total 200 ml Other 4000 ml Output Urine Total 2100 ml 600 ml 575 ml 625 ml 1150 ml 650 ml Drainage Total 135 ml 70 ml Estimated Blood Loss 600 ml Other 450 ml # Bowel Movements 1 0 0 0 Laboratory Tests Test 08/14/16 08/15/16 08/15/16 08/16/16 06:54 16:30 20:24 09:33 White Blood Count 5.6 TH/MM3 7.3 TH/MM3 Red Blood Count 4.01 MIL/MM3 3.11 MIL/MM3 Hemoglobin 11.9 GM/DL 9.3 GM/DL Hematocrit 35.4 % 27.7 % Mean Corpuscular Volume 88.2 FL 89.2 FL Mean Corpuscular Hemoglobin 29.7 PG 30.0 PG Mean Corpuscular Hemoglobin 33.7 % 33.6 % Concent Red Cell Distribution Width 14.8 % 14.3 % Platelet Count 205 TH/MM3 173 TH/MM3 Mean Platelet Volume 10.1 FL 10.3 FL Sodium Level 135 MEQ/L 136 MEQ/L Potassium Level 4.3 MEQ/L 4.2 MEQ/L Chloride Level 101 MEQ/L 99 MEQ/L Carbon Dioxide Level 28.5 MEQ/L 28.2 MEQ/L Anion Gap 6 MEQ/L 9 MEQ/L Blood Urea Nitrogen 16 MG/DL 15 MG/DL Creatinine 0.51 MG/DL 0.65 MG/DL Estimat Glomerular Filtration 116 ML/MIN 87 ML/MIN Rate Random Glucose 117 MG/DL 132 MG/DL Calcium Level 9.2 MG/DL 8.6 MG/DL Blood Gas Puncture Site ART LINE Blood Gas Patient Temperature 98.6 98.6 Blood Gas HCO3 25 mmol/L 25 mmol/L Blood Gas Base Excess 1.8 mmol/L 0.7 mmol/L Blood Gas Oxygen Saturation 97 % 97 % Arterial Blood pH 7.47 7.38 Arterial Blood Partial 36 mmHg 44 mmHg Pressure CO2 Arterial Blood Partial 234 mmHg 181 mmHg Pressure O2 Arterial Blood Oxygen Content 13.5 Vol % 14.2 Vol % Arterial Blood 2.1 % 1.7 % Carboxyhemoglobin Arterial Blood Methemoglobin 1.2 % 0.9 % Blood Gas Hemoglobin 9.5 G/DL 10.1 G/DL Oxygen Delivery Device O.R. ABG 450/8/PEEP 5/ Blood Gas Inspired Oxygen 60 % 40 % Neutrophils (%) (Auto) 68.4 % Lymphocytes (%) (Auto) 18.3 % Monocytes (%) (Auto) 9.7 % Eosinophils (%) (Auto) 3.1 % Basophils (%) (Auto) 0.5 % Neutrophils # (Auto) 5.0 TH/MM3 Lymphocytes # (Auto) 1.3 TH/MM3 Monocytes # (Auto) 0.7 TH/MM3 Eosinophils # (Auto) 0.2 TH/MM3 Basophils # (Auto) 0.0 TH/MM3 CBC Comment DIFF FINAL Differential Comment Constitutional Vital Signs Date Time Temp Pulse Resp B/P Pulse Ox O2 Delivery O2 Flow Rate FiO2 08/16/16 16:00 96.3 60 20 155/68 100 08/16/16 12:00 96.7 60 20 143/63 100 08/16/16 11:37 100 Nasal Cannula 3.00 08/16/16 08:00 96.3 62 20 154/68 100 Arterial Line Manual Cuff/Auscultation 08/16/16 05:15 98.0 57 20 155/69 100 08/15/16 22:00 98.0 69 18 167/58 100 08/15/16 21:15 98.2 71 16 172/71 100 Nasal Cannula 4 08/15/16 21:06 99 Nasal Cannula 4 08/15/16 21:06 100 Nasal Cannula 4.00 08/15/16 21:00 68 15 162/55 100 Mechanical Ventilator 40 168/73 08/15/16 20:45 63 11 158/52 100 Mechanical Ventilator 40 08/15/16 20:30 60 10 158/51 100 Mechanical Ventilator 40 08/15/16 20:15 62 10 157/52 100 Mechanical Ventilator 40 08/15/16 20:00 58 9 168/68 100 Mechanical Ventilator 40 153/51 08/15/16 19:45 59 11 152/52 100 Mechanical Ventilator 40 08/15/16 19:30 59 8 148/51 100 Mechanical Ventilator 40 08/15/16 19:15 40 08/15/16 19:15 97.0 57 8 164/72 99 Mechanical Ventilator 40 157/52 08/15/16 19:01 97.4 54 9 157/52 100 Mechanical Ventilator 40 08/15/16 18:55 100 40 08/16/16 07:00 Intake Total 4200 ml Output Total 2960 ml Balance 1240 ml (Jeff Talbert) Review of Systems/Exam ROS Neuro: Still with her usual numbness & weakness to the arms & legs. Denies any headache or dizziness. HEENT: Slightly hoarse. Neck: Neck is sore. Resp: Denies any shortness of breath or productive cough. Cardiac: Denies any chest pain, palpitations or irregular heart rate. GI: Denies any abdominal pain, nausea, vomiting or bowel incontinence. MS: Denies any arm or leg pain. Exam Neck: [facility]. James J cervical collar in place, intact left anterior surgical dressing w /o any shadowing on it. Resp: CTAB w/o W/R/R, equal excursion, non-laboured, on RA. CV: S1S2 w/RRR w/o M/G/R, dependent edema 2+ to distal extremities. GI: Abdomen soft, nontender, no bowel sounds appreciated. : Rojas catheter to BSD w/clear yellow urine. Neuro: AAOx3. Speech clear & appropriate. Follows commands. Decreased sensation to light touch to upper extremities & feet. Motor function 4/5 RUE, 3+/5 LUE, except for hand intrinsics & extensors left 1/5 & right 2+/5, BLE 1-2/5 although knee flexion 3/5. Voice is still hoarse today. (Jeff Talbert) Medications Current Medications Current Medications Medications (Trade) Dose Ordered Sig/Jin Route Start Time Stop Time Status Last Admin (NS Flush) 2 ml UNSCH PRN IV FLUSH 08/02/16 17:00 08/10/16 23:29 (NS Flush) 2 ml BID IV FLUSH 08/02/16 21:00 08/16/16 08:27 (Tylenol) 650 mg Q4H PRN PO 08/02/16 17:00 08/08/16 01:49 (Zofran Inj) 4 mg Q6H PRN IVP 08/02/16 17:00 (Colace) 100 mg Q12H PO 08/02/16 18:00 08/16/16 05:11 (Milk Of Magnesia Liq) 30 ml Q12H PRN PO 08/02/16 17:00 (Restoril) 15 mg HS PRN PO 08/02/16 21:00 (Lovenox Inj) 40 mg Q24H SQ 08/02/16 18:00 Hold 08/06/16 17:34 (Tessalon) 100 mg TID PRN PO 08/03/16 00:30 08/14/16 19:15 (Zetia) 10 mg DAILY PO 08/03/16 09:00 08/16/16 08:26 (Neurontin) 300 mg HS PO 08/03/16 21:00 08/15/16 23:03 (Synthroid) 50 mcg DAILY@07 PO 08/03/16 07:00 08/16/16 05:11 (Detrol La) 4 mg DAILY PO 08/03/16 09:00 08/16/16 08:27 (Diovan) 160 mg DAILY PO 08/03/16 09:00 08/16/16 08:26 (Ferrous Sulfate) 325 mg DAILY PO 08/03/16 09:00 08/16/16 08:27 (Ultram) 50 mg Q8H PRN PO 08/03/16 00:45 08/16/16 12:32 (D50w (Vial) Inj) 25 ml UNSCH PRN IV PUSH 08/03/16 17:00 (Glucagon Inj) 1 mg UNSCH PRN OTHER 08/03/16 17:00 (Coreg) 12.5 mg BID PO 08/04/16 21:00 08/16/16 08:27 (Procardia Xl) 90 mg DAILY PO 08/07/16 09:00 08/16/16 08:27 (Dilaudid Pf Inj) 0.5 mg Q3H PRN IV 08/08/16 16:00 08/16/16 15:17 Naloxone HCl 0.4 mg 0.4 mg UNSCH PRN IV 08/08/16 16:00 Lactated Ringer's 1,000 ml @ 30 mls/hr Q24H PRN IV 08/15/16 10:00 08/18/16 09:59 (NS 500 ml Inj) 500 ml @ 30 mls/hr [id number] PRN IV 08/15/16 10:00 08/18/16 09:59 Miscellaneous Information ALL NURSING DEPARTME... UNSCH PRN .XX 08/15/16 18:53 08/16/16 18:52 (Senokot) 8.6 mg DAILY PO 08/16/16 15:00 08/16/16 15:16 (Jeff Talbert) Medical Decision Making MDM Remarks 1. POD # 8 s/p ACDF C4-5 & C6-7 levels (08/08), stable neurologically a. Severe cervical stenosis b. Severe cervical myelopathy 2. POD # 1 s/p bilateral C4, C5, C6, C7 decompressive semi-laminectomy, medial facetectomy for dorsal spinal cord decompression with bilateral C4-C7 posterior instrumentation, bilateral C7 pedicle screw fixation and bilateral C4-C7 posterior fusion with local autograft and allograft bone 3. Mild persistent signal in cord at C4-C5 level on MRI 08/10 4. Hypertension 5. Diabetes 6. History of coronary artery disease 7. Escherichia coli UTI, treated 8. Urine culture positive for Enterococcus faecalis Patient is neurologically stable. (Jeff Talbert) Plan Plan Remarks 1. Continue [facility]. [place] J cervical collar 2. ST for swallow 3. PT & OT evals 4. Continue neuro checks 5. Tx UTI per primary team. 6. Blood pressure control per primary team. (Jeff Talbert) Attending Statement I have personally seen and examined the patient on the date of this note. Pertinent documentation and study results have been reviewed by the undersigned. I have personally developed the treatment plan and performed medical decision making. Agree with findings, exam, and treatment plan as noted above. Continue posterior neck drain for now. Physical therapy Neurologic exam is stable compared to preoperative. (Sav Eddy MD) Jeff Talbert August 16, 2016 16:56 Sav Eddy MD August 16, 2016 18:28
[2016-08-16 20:00] VITALS: BP 151/69; PULSE 63; RESP 18; TEMP 97.1; O2SAT 98
[2016-08-16] MEDS: GABAPENTIN 300 MG CAP PO SCH (20:54)
[2016-08-17] VITALS (8 sets, daily range): BP systolic 127–153; BP diastolic 57–67; PULSE 58–76; RESP 18; TEMP 97.3–100.1; O2SAT 93–100
[2016-08-17] MEDS: HYDROmorphone HCL PF 1 MG/ML VIAL IV PRN ×4 (02:09→22:46)
[2016-08-17] MEDS: INSULIN ASPART SUPPLEMENTAL SCALE SQ SCH ×4 (06:39→21:28)
[2016-08-17] MEDS: LEVOTHYROXINE SODIUM 50 MCG TAB PO SCH (06:42)
[2016-08-17] MEDS: traMADol HCL 50 MG TAB PO PRN ×2 (06:42→15:41)
[2016-08-17] MEDS: DOCUSATE SODIUM 100 MG CAP PO SCH ×2 (06:43→17:24)
[2016-08-17] MEDS: NIFEdipine 90 MG SUSTAINED RELEASE TAB PO SCH (08:24)
[2016-08-17] MEDS: EZETIMIBE 10 MG TAB PO SCH (08:24)
[2016-08-17] MEDS: TOLTERODINE TARTRATE 4 MG CAP LA PO SCH (08:24)
[2016-08-17] MEDS: CARVEDILOL 12.5 MG TAB PO SCH ×2 (08:24→21:28)
[2016-08-17] MEDS: SENNOSIDES 8.6 MG TAB PO SCH (08:24)
[2016-08-17] MEDS: FERROUS SULFATE 325 MG (65 MG ELEMENTAL IRON) TAB PO SCH (08:24)
[2016-08-17] MEDS: VALSARTAN 160 MG TAB PO SCH (08:24)
[2016-08-17] MEDS: SODIUM CHLORIDE 0.9% FLUSH 10 ML FLUSH IV FLUSH SCH ×2 (08:25→21:28)
[2016-08-17] MEDS ORDERED: MAGNESIUM HYDROXIDE SUSP 30 ML CUP PO ONE (12:00)
--- NOTE | 2016-08-17 13:45 | HHI.PR ---
Subjective Remarks Follow-up for cervical stenosis. Friends at bedside. The patient complains of some posterior cervical pain. She states it is exacerbated yesterday by how she was lying on the neck brace. She denies any acute worsening of the neck pain today. She denies any chest pain, shortness breath, nausea, vomiting, abdominal pain. She hasn't had a bowel movement yet since the surgery, but just receive milk of magnesia. She has been having a cough. Objective Vitals Vital Signs Date Time Temp Pulse Resp B/P Pulse Ox O2 Delivery O2 Flow Rate FiO2 08/17/16 12:17 98.5 59 18 127/57 99 08/17/16 12:14 93 21 08/17/16 08:07 97.5 58 18 139/63 100 08/17/16 05:37 97.3 58 18 130/63 100 08/17/16 02:39 18 08/17/16 00:00 97.8 61 18 140/63 100 08/16/16 21:54 18 08/16/16 20:00 97.1 63 18 151/69 98 08/16/16 16:00 96.3 60 20 155/68 100 I/O 08/16/16 08/16/16 08/16/16 08/17/16 08/17/16 08/17/16 07:00 15:00 23:00 07:00 15:00 23:00 Intake Total 0 ml 720 ml 1080 ml Output Total 940 ml 720 ml 535 ml 165 ml Balance -940 ml 0 ml 545 ml -165 ml Intake Oral 0 ml 720 ml 1080 ml IV Total 0 ml Output Urine Total 900 ml 650 ml 500 ml 150 ml Drainage Total 40 ml 70 ml 35 ml 15 ml # Bowel Movements 0 0 0 0 Result Diagram: 08/16/16 0933 08/16/16 0933 Imaging Last Impressions Cervical Spine X-Ray 08/15/16 0000 Signed Impressions: Service Date/Time: Monday, August 15, 2016 14:52 - CONCLUSION: Interim posterior instrumentation placement from C4-C7. On August 08, the patient had discectomy with interbody and anterior instrumentation placed at C4/C5 and C6/C7. Normal alignment. Kiko Meneses MD Cervical Spine MRI 08/10/16 0000 Signed Impressions: Service Date/Time: Wednesday, August 10, 2016 10:03 - CONCLUSION: 1. Minimal persistent signal in the cord at the C4-C5 level. 2. There is no evidence for an epidural impression. Asad Rajan MD FACR Thoracic Spine MRI 08/03/16 0951 Signed Impressions: Service Date/Time: Wednesday, August 03, 2016 11:28 - CONCLUSION: Moderate spinal stenosis at the T10-T11 level. There is minimal anterior wedging of the T12 vertebral body old by MRI. Asad Rajan MD FACR Head CT 08/02/16 0000 Signed Impressions: Service Date/Time: Tuesday, August 02, 2016 16:14 - CONCLUSION: 1. No acute intracranial abnormality. 2. Opacification of the left ethmoid air cells. Darrell Ashley MD Objective Remarks GENERAL: Well-developed well-nourished. In no acute distress. Cervical collar in place. Neck with surgical dressing in place. SKIN: Warm and dry. No lesions noted. HEENT: Normocephalic. Pupils equal and round. Mucous membranes pink and moist. CARDIOVASCULAR: Regular rate and rhythm. No murmur appreciated. RESPIRATORY: No accessory muscle use. Clear to auscultation. Breath sounds equal bilaterally. GASTROINTESTINAL: Abdomen soft, non-tender, nondistended. Bowel sounds x4. MUSCULOSKELETAL: No obvious deformities. No clubbing or cyanosis. No edema. NEUROLOGICAL: Awake and alert. Moves upper extremities spontaneously. Lower extremity weakness. Normal speech. PSYCHIATRIC: Appropriate mood and affect; insight and judgment normal. Procedures 08/08/[address] Eddy - C4 5 and C6 7 anterior cervical discectomy, resection herniated nucleus pulposus and posterior osteophytic disc complexes- microtechnique. C4 5 and C6 7 anterior interbody fusion with composite allograft bone. C4 5 and C6 7 anterior cervical instrumentation A/P Problem List: (1) CIDP (chronic inflammatory demyelinating polyneuropathy) ICD Code: G61.81 Status: Acute (2) Leg weakness, bilateral ICD Code: R29.898 Status: Acute (3) UTI (urinary tract infection) ICD Code: N39.0 Status: Resolved (4) HTN (hypertension) ICD Code: I10 Status: Acute Assessment and Plan Ms. Meyers is an 81 year-old female who presented to the emergency room on 08/02 after being seen by her neurologist Dr. Mack in [place] for progressively worsening weakness in lower legs over the past 7 months. Patient is currently unable to walk. Cervical spinal stenosis with progressive bilateral lower extremity weakness - Per Dr. Mack's documentation (follow up office note dated 08/02/16-copy on chart), lumbar puncture showed elevated protein in the CSF. - consulted neurology, Dr. Che ordered MRI, MRI showed severe multilevel cord compression due to spinal stenosis and disk bulging - Consulted Dr. Eddy, performed operative intervention on 08/08. Postoperative care per neurosurgery. - Tramadol as needed for pain with IV Dilaudid as needed for breakthrough - Follow-up rehabilitation recommendations - Had repeat surgery 08/15 Allergic reaction to morphine on 08/09 - Improved with IV Solu-Medrol - s/p prednisone 50 mg 4 days - avoid morphine. //Dysphagia: Secondary to surgery vs allergic reaction - Speech therapy consulted, diet per speech therapy - Improved //cough. Nonproductive. advised to set up when eating. //UTI - Urine culture 08/02 with Escherichia coli, treated with IV ceftriaxone 4 days. - Repeat urine ordered 08/08 with enterococcus Faecalis - The patient is asymptomatic and has no fever or leukocytosis - Received Course of Macrobid 7 days, DC'd //Hypertension: Better controlled. - Continued home lisinopril, carvedilol, and valsartan - provide pain management PRN - Started on nifedipine, titrated dose to 90 mg daily - blood pressure acceptable. Continue to monitor. //Diabetes mellitus, reasonably controlled -Accu checks with SSI //Constipation - received MiraLAX 08/16 -Continue scheduled Colace and sennosides -Milk of magnesia as needed, given 1 dose today //DVT prophylaxis - SCDs - Resume chemical prophylaxis when okay with surgery Written by Kory Montemayor, acting as scribe for Dr. Kc on 08/17/16 at 13:44. This note was transcribed by scribe [Kory Montemayor]. I, Dr. Clinton Kc personally performed the history, physical exam, and medical decision making; and confirmed the accuracy of the information in the transcribed note. Authenticated by Dr. Clinton Kc on 08/17/16 at 21:30. Discharge Planning Follow-up neurosurgery and rehabilitation recommendations. Problem Qualifiers (1) UTI (urinary tract infection): Qualified Code: N30.00 - Acute cystitis without hematuria (2) HTN (hypertension): Qualified Code: I10 - Essential hypertension Kory Montemayor August 17, 2016 13:45 Clinton Kc MD August 17, 2016 21:30
--- NOTE | 2016-08-17 14:12 | HHI.NSPN ---
(Jeff Talbert Judit DANGELO) Note Status Status: Progress Note (Jeff Talbert) Interval History Interval History 08/03: 81-year-old female with history of previous low back surgery in 1994 for treatment of low back and lower extremity pain symptoms. She initially did very well following surgery for many years. Approximately 7 months ago she developed onset of progressive gait difficulty, severe enough to require her to start using a walker. By approximate 3-4 months ago she continued to experience further progressive gait difficulty and started falling even despite the walker, as well as onset of numbness and weakness in her hands with loss of upper extremity coordination. At that time she had to start using a wheelchair to mobilize. She was seen for further medical evaluation and indicates no further testing was done. She subsequently was seen at [facility] approximately 3 months ago and was admitted for 3 days. She is uncertain whether an MRI was done. She was subsequently discharged to inpatient rehabilitation at [facility] where she has remained for the past 3 months. She has had recent outpatient evaluation with neurology. She indicates that follow-up visit with her primary care physician recently prompted a visit to the emergency room yesterday. 08/04: Patient states she is doing well this afternoon when seen. Pain is controlled with medication and rates it a 2 out of 10. Still with numbness, tingling and weakness to the extremities. 08/05: Patient states she is doing good this morning, pain is controlled with meds, some improvement in numbness & tingling. 08/08: Patient to OR for ACDF C4-5 & C6-7 levels. 08/09: POD # 1, patient states that she has a sore throat and pain at the surgical incision. She denies any neck pain. She stated she swelled up and had difficulty breathing due to steroids which she is allergic to. It has improved after having received medication for it per the patient. Patient did receive Solumedrol this morning but no other medications expected for an allergic reaction. 08/10: POD # 2, patient states sore throat has resolved but still has hoarseness. Still with numbness to BUE that is about the same. No pain to the neck or extremities. 08/11: POD # 3, doing well in overall but has a sore throat today. The numbness to the UE remains the same. 08/12: POD # 4, overall doing well. Throat still slightly sore. During the night she stated she was not able to feel her fingers but now it is back to her usual numbness. 08/13: POD # 5, overall doing well. No new acute issues 08/14: POD # 6,doing well. No new acute issues 08/15: Patient to OR for C4-C7 laminoplasty 08/16: POD # 8/, patient doing well but she does state her neck is sore and she is not able to move her head. 08/17: POD # 9/, patient states she is doing okay, coughing up some phlegm, numbness to extremities the same. (Jeff Talbert) Labs, Micro, & Vital Signs Constitutional Vital Signs Date Time Temp Pulse Resp B/P Pulse Ox O2 Delivery O2 Flow Rate FiO2 08/17/16 12:17 98.5 59 18 127/57 99 08/17/16 12:14 93 21 08/17/16 08:07 97.5 58 18 139/63 100 08/17/16 05:37 97.3 58 18 130/63 100 08/17/16 02:39 18 08/17/16 00:00 97.8 61 18 140/63 100 08/16/16 21:54 18 08/16/16 20:00 97.1 63 18 151/69 98 08/16/16 16:00 96.3 60 20 155/68 100 08/17/16 07:00 Intake Total 1800 ml Output Total 1420 ml Balance 380 ml (Jeff Talbert) Review of Systems/Exam ROS Neuro: No change in the numbness & weakness to her arms & legs. Denies any headache or dizziness. HEENT: Slightly hoarse. Neck: Neck is sore. Resp: Coughing up some phlegm. Denies any shortness of breath or productive cough. Cardiac: Denies any chest pain, palpitations or irregular heart rate. GI: Denies any abdominal pain, nausea, vomiting or bowel incontinence. MS: Denies any arm or leg pain. Exam Neck: Tol[place] J cervical collar in place, intact left anterior surgical dressing w /o any shadowing on it. Resp: Slightly coarse bilaterally, equal excursion, non-laboured, on RA. CV: S1S2 w/RRR w/o M/G/R, dependent edema 2+ to distal extremities. GI: Abdomen soft, nontender, positive bowel sounds. : Rojas catheter to BSD w/clear yellow urine. Neuro: AAOx3. Speech clear & appropriate. Follows commands. Decreased sensation to light touch to extremities. Motor function 4/5 RUE, 3+/5 LUE, except for hand intrinsics & extensors left 1/5 & right 2+/5, BLE 1-2/5 although knee flexion 3/5. Voice is still hoarse today. (Jeff Talbert) Medications Current Medications Current Medications Medications (Trade) Dose Ordered Sig/Jin Route Start Time Stop Time Status Last Admin (NS Flush) 2 ml UNSCH PRN IV FLUSH 08/02/16 17:00 08/10/16 23:29 (NS Flush) 2 ml BID IV FLUSH 08/02/16 21:00 08/17/16 08:25 (Tylenol) 650 mg Q4H PRN PO 08/02/16 17:00 08/08/16 01:49 (Zofran Inj) 4 mg Q6H PRN IVP 08/02/16 17:00 (Colace) 100 mg Q12H PO 08/02/16 18:00 08/17/16 06:43 (Milk Of Magnesia Liq) 30 ml Q12H PRN PO 08/02/16 17:00 (Restoril) 15 mg HS PRN PO 08/02/16 21:00 (Lovenox Inj) 40 mg Q24H SQ 08/02/16 18:00 Hold 08/06/16 17:34 (Tessalon) 100 mg TID PRN PO 08/03/16 00:30 08/14/16 19:15 (Zetia) 10 mg DAILY PO 08/03/16 09:00 08/17/16 08:24 (Neurontin) 300 mg HS PO 08/03/16 21:00 08/16/16 20:54 (Synthroid) 50 mcg DAILY@07 PO 08/03/16 07:00 08/17/16 06:42 (Detrol La) 4 mg DAILY PO 08/03/16 09:00 08/17/16 08:24 (Diovan) 160 mg DAILY PO 08/03/16 09:00 08/17/16 08:24 (Ferrous Sulfate) 325 mg DAILY PO 08/03/16 09:00 08/17/16 08:24 (Ultram) 50 mg Q8H PRN PO 08/03/16 00:45 08/17/16 06:42 (D50w (Vial) Inj) 25 ml UNSCH PRN IV PUSH 08/03/16 17:00 (Glucagon Inj) 1 mg UNSCH PRN OTHER 08/03/16 17:00 (Coreg) 12.5 mg BID PO 08/04/16 21:00 08/17/16 08:24 (Procardia Xl) 90 mg DAILY PO 08/07/16 09:00 08/17/16 08:24 (Dilaudid Pf Inj) 0.5 mg Q3H PRN IV 08/08/16 16:00 08/17/16 13:29 Naloxone HCl 0.4 mg 0.4 mg UNSCH PRN IV 08/08/16 16:00 Lactated Ringer's 1,000 ml @ 30 mls/hr Q24H PRN IV 08/15/16 10:00 08/18/16 09:59 (NS 500 ml Inj) 500 ml @ 30 mls/hr [id number] PRN IV 08/15/16 10:00 08/18/16 09:59 (Senokot) 8.6 mg DAILY PO 08/16/16 15:00 08/17/16 08:24 (Jeff Talbert) Medical Decision Making MDM Remarks 1. POD # 9 s/p ACDF C4-5 & C6-7 levels (08/08), stable neurologically a. Severe cervical stenosis b. Severe cervical myelopathy 2. POD # 2 s/p bilateral C4, C5, C6, C7 decompressive semi-laminectomy, medial facetectomy for dorsal spinal cord decompression with bilateral C4-C7 posterior instrumentation, bilateral C7 pedicle screw fixation and bilateral C4-C7 posterior fusion with local autograft and allograft bone (08/15) 3. Mild persistent signal in cord at C4-C5 level on MRI 04/26 4. Hypertension 5. Diabetes 6. History of coronary artery disease 7. Escherichia coli UTI, treated 8. Enterococcus faecalis UTI Patient essentially stable neurologically. ST recommends mechanically soft diet w/thin liquids (Jeff Talbert) Plan Plan Remarks 1. Continue Tol[place] J cervical collar 2. ST for swallow 3. PT & OT evals 4. Continue neuro checks 5. Tx UTI per primary team. 6. Blood pressure control per primary team. 7. Okay w/NSGY for mechanical soft diet w/thin liquids (Jeff Talbert) Attending Statement I have personally seen and examined the patient on the date of this note. Pertinent documentation and study results have been reviewed by the undersigned. I have personally developed the treatment plan and performed medical decision making. Agree with findings, exam, and treatment plan as noted above. Neurologic exam stable postop Continue physical therapy, occupational, speech therapy Mobilize out of bed as tolerated Advanced diet per speech therapy Discontinue neck drain Stable for discharge to inpatient rehabilitation from neurosurgical standpoint ( Sav Eddy MD) Jeff Talbert August 17, 2016 14:12 Sav Eddy MD August 17, 2016 19:46
[2016-08-17] MEDS: GABAPENTIN 300 MG CAP PO SCH (21:28)
[2016-08-17] MEDS: BENZONATATE 100 MG CAP PO PRN (22:45)
[2016-08-18] VITALS (7 sets, daily range): BP systolic 111–145; BP diastolic 56–65; PULSE 58–67; RESP 18–20; TEMP 98.2–100; O2SAT 93–95
[2016-08-18] MEDS: traMADol HCL 50 MG TAB PO PRN ×3 (01:30→20:42)
[2016-08-18] MEDS: LEVOTHYROXINE SODIUM 50 MCG TAB PO SCH (05:51)
[2016-08-18] MEDS: DOCUSATE SODIUM 100 MG CAP PO SCH (05:51)
[2016-08-18] MEDS: INSULIN ASPART SUPPLEMENTAL SCALE SQ SCH ×4 (05:53→21:00)
[2016-08-18 07:43] LABS: AUTOMATED NEUTROPHIL # 4.3 TH/MM3 (1.8-7.7); BASOPHIL % 0.7 % (0.0-2.0); EOSINOPHIL # 0.2 TH/MM3 (0-0.4); EOSINOPHIL % 2.8 % (0.0-4.0); HEMATOCRIT 22.6 % (35.0-46.0); HEMO FLAGS DIFF FINAL; LYMPH % 18.2 % (9.0-44.0); LYMPHOCYTE # 1.2 TH/MM3 (1.0-4.8); MEAN CELL VOLUME 87.9 FL (80.0-100.0); MEAN CORPUSCULAR HEMOGLOBIN 30.8 PG (27.0-34.0); MEAN CORPUSCULAR HGB CONC 35.1 % (32.0-36.0); MONO % 11.2 % (0.0-8.0); NEUT % 67.1 % (16.0-70.0); PLATELET COUNT 160 TH/MM3 (150-450); RED BLOOD COUNT 2.57 MIL/MM3 (4.00-5.30); RED CELL DISTRIBUTION WIDTH 14.2 % (11.6-17.2); WHITE BLOOD COUNT 6.4 TH/MM3 (4.0-11.0)
[2016-08-18 08:06] LABS: BICARBONATE 32.3 MEQ/L (21.0-32.0); MAGNESIUM 2.2 MG/DL (1.5-2.5); POTASSIUM 4.1 MEQ/L (3.5-5.1)
[2016-08-18] MEDS: CARVEDILOL 12.5 MG TAB PO SCH ×2 (08:09→20:42)
[2016-08-18] MEDS: NIFEdipine 90 MG SUSTAINED RELEASE TAB PO SCH (08:09)
[2016-08-18] MEDS: FERROUS SULFATE 325 MG (65 MG ELEMENTAL IRON) TAB PO SCH (08:09)
[2016-08-18] MEDS: SODIUM CHLORIDE 0.9% FLUSH 10 ML FLUSH IV FLUSH SCH ×2 (08:09→20:43)
[2016-08-18] MEDS: SENNOSIDES 8.6 MG TAB PO SCH (08:09)
[2016-08-18] MEDS: EZETIMIBE 10 MG TAB PO SCH (08:09)
[2016-08-18] MEDS: TOLTERODINE TARTRATE 4 MG CAP LA PO SCH (08:09)
[2016-08-18] MEDS: VALSARTAN 160 MG TAB PO SCH (08:10)
[2016-08-18] MEDS: BENZONATATE 100 MG CAP PO PRN (09:51)
--- NOTE | 2016-08-18 12:00 | HHI.NSPN ---
(Jeff Talbert Judit DANGELO) Note Status Status: Progress Note (Jeff Talbert) Interval History Interval History 08/03: 81-year-old female with history of previous low back surgery in 1994 for treatment of low back and lower extremity pain symptoms. She initially did very well following surgery for many years. Approximately 7 months ago she developed onset of progressive gait difficulty, severe enough to require her to start using a walker. By approximate 3-4 months ago she continued to experience further progressive gait difficulty and started falling even despite the walker, as well as onset of numbness and weakness in her hands with loss of upper extremity coordination. At that time she had to start using a wheelchair to mobilize. She was seen for further medical evaluation and indicates no further testing was done. She subsequently was seen at [facility] approximately 3 months ago and was admitted for 3 days. She is uncertain whether an MRI was done. She was subsequently discharged to inpatient rehabilitation at [facility] where she has remained for the past 3 months. She has had recent outpatient evaluation with neurology. She indicates that follow-up visit with her primary care physician recently prompted a visit to the emergency room yesterday. 08/04: Patient states she is doing well this afternoon when seen. Pain is controlled with medication and rates it a 2 out of 10. Still with numbness, tingling and weakness to the extremities. 08/05: Patient states she is doing good this morning, pain is controlled with meds, some improvement in numbness & tingling. 08/08: Patient to OR for ACDF C4-5 & C6-7 levels. 08/09: POD # 1, patient states that she has a sore throat and pain at the surgical incision. She denies any neck pain. She stated she swelled up and had difficulty breathing due to steroids which she is allergic to. It has improved after having received medication for it per the patient. Patient did receive Solumedrol this morning but no other medications expected for an allergic reaction. 08/10: POD # 2, patient states sore throat has resolved but still has hoarseness. Still with numbness to BUE that is about the same. No pain to the neck or extremities. 08/11: POD # 3, doing well in overall but has a sore throat today. The numbness to the UE remains the same. 08/12: POD # 4, overall doing well. Throat still slightly sore. During the night she stated she was not able to feel her fingers but now it is back to her usual numbness. 08/13: POD # 5, overall doing well. No new acute issues 08/14: POD # 6,doing well. No new acute issues 08/15: Patient to OR for C4-C7 laminoplasty 08/16: POD # 8/1, patient doing well but she does state her neck is sore and she is not able to move her head. 08/17: POD # 9/2, patient states she is doing okay, coughing up some phlegm, numbness to extremities the same. 08/18: POD # 10/3. When seen this morning Therapy had just gotten the patient up to the chair. She states that she is "doing good" this morning and she had no complaints. Therapy did request a specialty bed and Roho cushion since the patient has complained of pain due to pressure from sitting & laying. Therapy reported she is only able to tolerate 20 minutes since she is not able to adjust herself. (Jeff Talbert) Labs, Micro, & Vital Signs Results Allergies Coded Allergies Type Severity Reaction Last Updated Verified Morphine Allergy Severe Shortness of Breath 08/09/16 Yes Neosporin Allergy Severe Shortness of Breath 08/09/16 Yes 5/2/175/2/175/3/175/3/175/4/175/08/01 06: 18: 06: 18: 06: 18:00 Intake Total 4200 ml 720 ml 1080 ml 960 ml 480 ml Output Total 2335 ml 720 ml 685 ml 140 ml 400 ml 200 ml Balance 1865 ml 0 ml 395 ml 820 ml 80 ml -200 ml Intake Oral 0 ml 720 ml 1080 ml 960 ml 480 ml IV Total 200 ml 0 ml Other 4000 ml Output Urine Total 1150 ml 650 ml 650 ml 125 ml 400 ml 200 ml Drainage Total 135 ml 70 ml 35 ml 15 ml Estimated Blood Loss 600 ml Other 450 ml # Bowel Movements 0 0 0 0 0 Laboratory Tests Test 08/15/16 08/15/16 08/16/16 08/18/16 16:30 20:24 09:33 06:12 Blood Gas Puncture Site ART LINE Blood Gas Patient Temperature 98.6 98.6 Blood Gas HCO3 25 mmol/L 25 mmol/L Blood Gas Base Excess 1.8 mmol/L 0.7 mmol/L Blood Gas Oxygen Saturation 97 % 97 % Arterial Blood pH 7.47 7.38 Arterial Blood Partial 36 mmHg 44 mmHg Pressure CO2 Arterial Blood Partial 234 mmHg 181 mmHg Pressure O2 Arterial Blood Oxygen Content 13.5 Vol % 14.2 Vol % Arterial Blood 2.1 % 1.7 % Carboxyhemoglobin Arterial Blood Methemoglobin 1.2 % 0.9 % Blood Gas Hemoglobin 9.5 G/DL 10.1 G/DL Oxygen Delivery Device O.R. ABG 450/8/PEEP 5/ Blood Gas Inspired Oxygen 60 % 40 % White Blood Count 7.3 TH/MM3 6.4 TH/MM3 Red Blood Count 3.11 MIL/MM3 2.57 MIL/MM3 Hemoglobin 9.3 GM/DL 7.9 GM/DL Hematocrit 27.7 % 22.6 % Mean Corpuscular Volume 89.2 FL 87.9 FL Mean Corpuscular Hemoglobin 30.0 PG 30.8 PG Mean Corpuscular Hemoglobin 33.6 % 35.1 % Concent Red Cell Distribution Width 14.3 % 14.2 % Platelet Count 173 TH/MM3 160 TH/MM3 Mean Platelet Volume 10.3 FL 10.5 FL Neutrophils (%) (Auto) 68.4 % 67.1 % Lymphocytes (%) (Auto) 18.3 % 18.2 % Monocytes (%) (Auto) 9.7 % 11.2 % Eosinophils (%) (Auto) 3.1 % 2.8 % Basophils (%) (Auto) 0.5 % 0.7 % Neutrophils # (Auto) 5.0 TH/MM3 4.3 TH/MM3 Lymphocytes # (Auto) 1.3 TH/MM3 1.2 TH/MM3 Monocytes # (Auto) 0.7 TH/MM3 0.7 TH/MM3 Eosinophils # (Auto) 0.2 TH/MM3 0.2 TH/MM3 Basophils # (Auto) 0.0 TH/MM3 0.0 TH/MM3 CBC Comment DIFF FINAL DIFF FINAL Differential Comment Sodium Level 136 MEQ/L 134 MEQ/L Potassium Level 4.2 MEQ/L 4.1 MEQ/L Chloride Level 99 MEQ/L 97 MEQ/L Carbon Dioxide Level 28.2 MEQ/L 32.3 MEQ/L Anion Gap 9 MEQ/L 5 MEQ/L Blood Urea Nitrogen 15 MG/DL 15 MG/DL Creatinine 0.65 MG/DL 0.67 MG/DL Estimat Glomerular Filtration 87 ML/MIN 84 ML/MIN Rate Random Glucose 132 MG/DL 126 MG/DL Calcium Level 8.6 MG/DL 8.3 MG/DL Phosphorus Level 2.3 MG/DL Magnesium Level 2.2 MG/DL Albumin 2.3 GM/DL Constitutional Vital Signs Date Time Temp Pulse Resp B/P Pulse Ox O2 Delivery O2 Flow Rate FiO2 08/18/16 08:13 100.0 66 18 145/65 94 08/18/16 05:59 98.2 58 18 124/57 93 08/18/16 00:00 98.7 64 18 124/58 94 08/17/16 20:35 94 21 08/17/16 20:00 100.1 76 18 153/67 94 08/17/16 16:10 99.1 69 18 134/60 97 08/17/16 12:17 98.5 59 18 127/57 99 08/17/16 12:14 93 21 08/18/16 07:00 Intake Total 1440 ml Output Total 725 ml Balance 715 ml (Jeff Talbert) Review of Systems/Exam ROS Neuro: No change in the numbness & weakness to her arms & legs. Denies any headache or dizziness. HEENT: Denies any hoarseness or sore throat. Neck: Denies any neck pain. Resp:Denies any shortness of breath or productive cough. Cardiac: Denies any chest pain, palpitations or irregular heart rate. GI: Denies any abdominal pain, nausea, vomiting or bowel incontinence. MS: Denies any arm or leg pain. Exam Neck: [place] J cervical collar in place, anterior & posterior dressings intact, incisions well-approximated w/steri-strips, no evident drainage, erythema or streaking noted. Resp: CTAB w/o W/R/R, equal excursion, non-laboured, on RA. CV: S1S2 w/RRR w/o M/G/R, radial & pedal pulses 2+ bilaterally, cap refill < 2 sec, dependent edema 1+ to distal extremities. GI: Abdomen soft, nontender, positive bowel sounds. : Rojas catheter to BSD w/clear yellow urine. Neuro: AAOx3. Speech clear & appropriate. Follows commands. Decreased sensation to light touch to extremities. Motor function 4/5 RUE, 3+/5 LUE, except for hand intrinsics & extensors left 1/5 & right 2+/5, BLE 1-2/5 although knee flexion 3/5 on right. (Jeff Talbert) Medications Current Medications Current Medications Medications (Trade) Dose Ordered Sig/Jin Route Start Time Stop Time Status Last Admin (NS Flush) 2 ml UNSCH PRN IV FLUSH 08/02/16 17:00 08/10/16 23:29 (NS Flush) 2 ml BID IV FLUSH 08/02/16 21:00 08/18/16 08:09 (Tylenol) 650 mg Q4H PRN PO 08/02/16 17:00 08/08/16 01:49 (Zofran Inj) 4 mg Q6H PRN IVP 08/02/16 17:00 (Colace) 100 mg Q12H PO 08/02/16 18:00 08/18/16 05:51 (Milk Of Magnesia Liq) 30 ml Q12H PRN PO 08/02/16 17:00 (Restoril) 15 mg HS PRN PO 08/02/16 21:00 (Lovenox Inj) 40 mg Q24H SQ 08/02/16 18:00 Hold 08/06/16 17:34 (Tessalon) 100 mg TID PRN PO 08/03/16 00:30 08/18/16 09:51 (Zetia) 10 mg DAILY PO 08/03/16 09:00 08/18/16 08:09 (Neurontin) 300 mg HS PO 08/03/16 21:00 08/17/16 21:28 (Synthroid) 50 mcg DAILY@07 PO 08/03/16 07:00 08/18/16 05:51 (Detrol La) 4 mg DAILY PO 08/03/16 09:00 08/18/16 08:09 (Diovan) 160 mg DAILY PO 08/03/16 09:00 08/18/16 08:10 (Ferrous Sulfate) 325 mg DAILY PO 08/03/16 09:00 08/18/16 08:09 (Ultram) 50 mg Q8H PRN PO 08/03/16 00:45 08/18/16 09:53 (D50w (Vial) Inj) 25 ml UNSCH PRN IV PUSH 08/03/16 17:00 (Glucagon Inj) 1 mg UNSCH PRN OTHER 08/03/16 17:00 (Coreg) 12.5 mg BID PO 08/04/16 21:00 08/18/16 08:09 (Procardia Xl) 90 mg DAILY PO 08/07/16 09:00 08/18/16 08:09 (Dilaudid Pf Inj) 0.5 mg Q3H PRN IV 08/08/16 16:00 08/17/16 22:46 (Narcan Inj) 0.4 mg UNSCH PRN IV 08/08/16 16:00 (Senokot) 8.6 mg DAILY PO 08/16/16 15:00 08/18/16 08:09 (Jeff Talbert) Medical Decision Making MDM Remarks 1. POD # 10 s/p ACDF C4-5 & C6-7 levels (08/08), stable neurologically a. Severe cervical stenosis b. Severe cervical myelopathy 2. POD # 3 s/p bilateral C4, C5, C6, C7 decompressive semi-laminectomy, medial facetectomy for dorsal spinal cord decompression with bilateral C4-C7 posterior instrumentation, bilateral C7 pedicle screw fixation and bilateral C4-C7 posterior fusion with local autograft and allograft bone (08/15) 3. Mild persistent signal in cord at C4-C5 level on MRI 08/10 4. Hypertension 5. Diabetes 6. History of coronary artery disease 7. Escherichia coli UTI, treated 8. Enterococcus faecalis UTI Patient remains stable neurologically. ST recommends mechanically soft diet w/thin liquids Therapy requesting specialty bed & Roho cushion to relieve pressure to buttocks/ coccyx (Jeff Talbert) Plan Plan Remarks 1. Continue [place] J cervical collar 2. ST for swallow 3. PT & OT evals 4. Continue neuro checks 5. Tx UTI per primary team. 6. Blood pressure control per primary team. 7. Okay w/NSGY for mechanical soft diet w/thin liquids 8. Will order specialty bed 9. Will order Roho cushion (Jeff Talbert) Attending Statement I have personally seen and examined the patient on the date of this note. Pertinent documentation and study results have been reviewed by the undersigned. I have personally developed the treatment plan and performed medical decision making. Agree with findings, exam, and treatment plan as noted above. Surgical sites are clean and dry Moderate neck pain Drains had been removed Upper and lower extremity sensorimotor exam is stable compared to her initial admission She is stable for inpatient rehabilitation or intermediate. (Sav Eddy MD) Jeff Talbert August 18, 2016 12:00 Sav Eddy MD August 18, 2016 19:18
--- NOTE | 2016-08-18 12:15 | HHI.DS ---
cc: Sav Eddy MD Discharge Summary Admission Date Aug 03, 2016 at 18:46 Discharge Date: August 18, 2016 Admitting Diagnosis bilateral leg weakness, CIDP, UTI (1) Cervical spinal stenosis ICD Code: M48.02 Diagnosis: Principal (2) Cervical disc disease with myelopathy ICD Code: M50.00 Diagnosis: Principal (3) Leg weakness, bilateral ICD Code: R29.898 Diagnosis: Principal (4) UTI (urinary tract infection) ICD Code: N39.0 Diagnosis: Secondary (5) HTN (hypertension) ICD Code: I10 Diagnosis: Secondary Procedures 08/08/[address] Eddy - C4 5 and C6 7 anterior cervical discectomy, resection herniated nucleus pulposus and posterior osteophytic disc complexes- microtechnique. C4 5 and C6 7 anterior interbody fusion with composite allograft bone. C4 5 and C6 7 anterior cervical instrumentation 08/15/16 - bilateral C4, C5, C6, C7 decompressive semi-laminectomy, medial facetectomy for dorsal spinal cord decompression with bilateral C4-C7 posterior instrumentation, bilateral C7 pedicle screw fixation and bilateral C4-C7 posterior fusion with local autograft and allograft bone Brief History - From Admission Ms. Meyers is an 81 year-old female with a past medical history of diabetes mellitus, congestive heart failure, hyperlipidemia, coronary artery disease status post bypass surgery in 2007, hypothyroidism, and [place] palsy who presented to the emergency room on 08/02/2016 after being seen by her neurologist Dr. Mack in [place] for progressively worsening weakness in lower legs over the past 7 months. Patient is currently unable to walk. Per Dr. Mack's documentation (follow up office note dated 08/02/16-copy on chart), lumbar puncture showed elevated protein in the CSF. The patient is seen in the CDU. She is a resident at [facility] in [facility]. She was living on her own until 4 months ago but her weakness became so debilitating she was unable to continue to care for herself. She requires use of a wheelchair for mobility. She reports decreased sensation and movement in bilateral lower extremities - she reports that this has been going on for 4 months although 's progress note indicates symptoms have been present for 7 months. She denies urine or bowel incontinence; also denies fevers, nausea, vomiting, diarrhea, black or red stool, hematuria, and dysuria; she complains of severe lower back pain that shoots down into both legs. She states that she does not know if she has a history of sciatica She denies any history of breathing problems, liver problems, kidney problems, blood clots, seizures, thyroid problems, or cancers. . CBC/BMP: 08/18/16 0612 08/18/16 0612 Significant Findings Laboratory Tests Test 08/15/16 08/15/16 08/16/16 08/18/16 16:30 20:24 09:33 06:12 Arterial Blood pH 7.47 (7.380-7.420) Arterial Blood Partial 36 mmHg (38-42) 44 mmHg (38-42) Pressure CO2 Arterial Blood Partial 234 mmHg 181 mmHg Pressure O2 (61-120) (61-120) Blood Gas Hemoglobin 9.5 G/DL 10.1 G/DL (12.0-16.0) (12.0-16.0) Red Blood Count 3.11 MIL/MM3 2.57 MIL/MM3 (4.00-5.30) (4.00-5.30) Hemoglobin 9.3 GM/DL 7.9 GM/DL (11.6-15.3) (11.6-15.3) Hematocrit 27.7 % 22.6 % (35.0-46.0) (35.0-46.0) Monocytes (%) (Auto) 9.7 % (0.0-8.0) 11.2 % (0.0-8.0) Estimat Glomerular Filtration 87 ML/MIN (>89) 84 ML/MIN (>89) Rate Random Glucose 132 MG/DL 126 MG/DL (74-106) (74-106) Sodium Level 134 MEQ/L (136-145) Chloride Level 97 MEQ/L (98-107) Carbon Dioxide Level 32.3 MEQ/L (21.0-32.0) Calcium Level 8.3 MG/DL (8.5-10.1) Phosphorus Level 2.3 MG/DL (2.5-4.9) Albumin 2.3 GM/DL (3.4-5.0) Imaging Last Impressions Cervical Spine X-Ray 08/15/16 0000 Signed Impressions: Service Date/Time: Monday, August 15, 2016 14:52 - CONCLUSION: Interim posterior instrumentation placement from C4-C7. On August 08, the patient had discectomy with interbody and anterior instrumentation placed at C4/C5 and C6/C7. Normal alignment. Kiko Meneses MD Cervical Spine MRI 08/10/16 0000 Signed Impressions: Service Date/Time: Wednesday, August 10, 2016 10:03 - CONCLUSION: 1. Minimal persistent signal in the cord at the C4-C5 level. 2. There is no evidence for an epidural impression. Asad Rajan MD FACR Thoracic Spine MRI 08/03/16 0951 Signed Impressions: Service Date/Time: Wednesday, August 03, 2016 11:28 - CONCLUSION: Moderate spinal stenosis at the T10-T11 level. There is minimal anterior wedging of the T12 vertebral body old by MRI. Asad Rajan MD FACR Head CT 08/02/16 0000 Signed Impressions: Service Date/Time: Tuesday, August 02, 2016 16:14 - CONCLUSION: 1. No acute intracranial abnormality. 2. Opacification of the left ethmoid air cells. Darrell Ashley MD PE at Discharge GENERAL: Well-developed well-nourished. In no acute distress. Cervical collar in place. Neck with surgical dressing in place. SKIN: Warm and dry. No lesions noted. HEENT: Normocephalic. Pupils equal and round. Mucous membranes pink and moist. CARDIOVASCULAR: Regular rate and rhythm. No murmur appreciated. RESPIRATORY: No accessory muscle use. Clear to auscultation. Breath sounds equal bilaterally. GASTROINTESTINAL: Abdomen soft, non-tender, nondistended. Bowel sounds x4. MUSCULOSKELETAL: No obvious deformities. No clubbing or cyanosis. No edema. NEUROLOGICAL: Awake and alert. Moves upper extremities spontaneously. Lower extremity weakness. Normal speech. PSYCHIATRIC: Appropriate mood and affect; insight and judgment normal. Pt update on day of discharge The patient reports feeling better today. She has some neck pain and still with lower extremity numbness. She also reports her throat pain is improving and she is tolerating oral intake. She was able to sit in bedside recliner today. She is looking forward to going to rehab. Hospital Course Ms. Meyers is an 81 year-old female who presented to the emergency room on 08/02 after being seen by her neurologist Dr. Mack in [place] for progressively worsening weakness in lower legs over the past 7 months. Patient is currently unable to walk. Cervical spinal stenosis with progressive bilateral lower extremity weakness: Seeing outpatient neurology in [facility] Dr. Mack's, follow up office note dated -copy on chart, had outpatient lumbar puncture showed elevated protein in the CSF, initially concerned for CIDP. Neurology was consulted upon patient's arrival, ordered imaging studies, C-spine MRI showed multilevel cord compression due to spinal stenosis and disk bulging. Consulted Dr. Eddy, performed operative intervention on 08/08 and had repeat surgery on 08/15. Given IV Dilaudid prn pain. Patient was not accepted to [facility], therefore discharged back to [facility]. Discussed with Jeff DANGELO with neurosurgery. Allergic reaction to morphine on 08/09: Improved with IV Solu-Medrol. s/p prednisone 50 mg 4 days. Avoid morphine. Dysphagia: Secondary to surgery vs allergic reaction. Speech therapy consulted, diet per speech therapy, on mechanical soft diet. Improved UTI: Urine culture 08/02 with Escherichia coli, treated with IV ceftriaxone 4 days. Repeat UA ordered 08/08 with enterococcus Faecalis. The patient is asymptomatic and has no fever or leukocytosis. Received Course of Macrobid 7 days, DC'd. Hypertension: Better controlled. Continued home lisinopril, carvedilol, and valsartan. Started on nifedipine, titrated dose to 90 mg daily. Blood pressure acceptable. Diabetes mellitus, reasonably controlled: Accu checks with SSI Constipation - received MiraLAX 5/2, MOM 08/17. Changed colace to amanda-colace 2tabs po bid. Started on daily miralax. Patient denies any abdominal pain/N/V. Tolerating oral intake. Low Grade Fever: Tmax 100.1. Likely post operative atelectasis. CXR images reviewed, unremarkable. Given incentive spirometry/acapella. Discussed with Dr. Kc. Pt Condition on Discharge: Stable Discharge Disposition: Discharge to SNF Discharge Time: > 30 minutes Discharge Instructions DIET: Follow Instructions for: Diabetic Diet Speech Therapy-Diet Recommends: Mechanical Soft Follow up Referrals: Neurosurgery - 1 Week with Sav Eddy MD PCP Follow-up - 1 Week with Deana Retana M.d. New Medications: Ferrous Sulfate (Ferrous Sulfate) 325 Mg Tab 325 MG PO DAILY NS #30 TAB Nifedipine (Nifedipine ER) 90 Mg Tab 90 MG PO DAILY Blood Pressure Management #30 TAB Polyethylene Glycol 3350 Powder (Polyethylene Glycol 3350 Powder) 17 Gm Pow 17 GM PO DAILY Constipation #30 PKT Sennosides-Docusate Sodium (Senna Plus 8.6-50 mg) 1 Tab Tab 2 TAB PO BID Constipation #120 TAB Continued Medications: Alendronate (Alendronate) 35 Mg Tab 35 MG PO Q7D Osteoporosis Prophylaxis #4 Ref 0 TAB Benzonatate (Benzonatate) 100 Mg Cap 100 MG PO TID PRN COUGH Ref 0 CAP Carvedilol ER 24 HR (Coreg Cr 24 HR) 40 Mg Cap 40 MG PO DAILY #30 Ref 0 CAP Ezetimibe (Zetia) 10 Mg Tab 10 MG PO DAILY #30 Ref 0 TAB Ferrous Sulfate (Ferrous Sulfate) 325 Mg Tab 325 MG PO BID Nutritional Supplement #30 Ref 0 TAB Folic Acid (Folic Acid) 5 Mg Cap 1 MG PO DAILY Nutritional Supplement Ref 0 CAP Gabapentin (Gabapentin) 300 Mg Cap 300 MG PO HS #30 Ref 0 CAP Insulin Glulisine Inj (Apidra Inj) 1,000 Unit/10 Ml Vial 100 UNITS SQ Blood Sugar Management Ref 0 VIAL Levothyroxine (Levothyroxine) 50 Mcg Tab 50 MCG PO DAILY Thyroid #30 Ref 0 TAB Lisinopril (Lisinopril) 40 Mg Tab 40 MG PO DAILY Blood Pressure Management #30 Ref 0 TAB Rosuvastatin (Crestor) 10 Mg Tab 10 MG PO DAILY Cholesterol Management #30 Ref 0 TAB Tolterodine ER (Detrol LA) 4 Mg Cap 4 MG PO DAILY Urinary Symptom Managemen #30 Ref 0 CAP Tramadol HCl (Tramadol Hydrochloride) 50 Mg Tab Trazodone (Trazodone) 50 Mg Tab 250 MG PO HS Control Depression #30 Ref 0 TAB Valsartan (Diovan) 160 Mg Tab 160 MG PO DAILY #30 Ref 0 TAB Gricelda Chaves PA-C August 18, 2016 12:15 pm
[2016-08-18] MEDS ORDERED: FERR325T PO (12:18)
[2016-08-18] MEDS ORDERED: SENN1TAB PO (12:18)
[2016-08-18] MEDS ORDERED: POLY17S PO (12:18)
[2016-08-18] MEDS ORDERED: NIFE90TA2 PO (12:19)
[2016-08-18] MEDS: POLYETHYLENE GLYCOL 17 GM PKG PO SCH (13:05)
[2016-08-18 15:02] LABS: HEMATOCRIT 23.6 % (35.0-46.0); REVIEW FLAG FINAL
[2016-08-18] MEDS: HYDROmorphone HCL PF 1 MG/ML VIAL IV PRN (17:01)
--- NOTE | 2016-08-18 17:35 | RADRPT ---
EXAM DATE/TIME: 08/18/2016 16:54 [place] COMPARISON: No previous studies available for comparison. INDICATIONS : Fever. MEDICAL HISTORY : Hypertension. Diabetes mellitus type 2. SURGICAL HISTORY : Discectomy, lumbar. CABG Fusion, cervical ENCOUNTER: Subsequent ACUITY: 4 - 6 days PAIN SCORE: 0/10 LOCATION: Bilateral chest FINDINGS: No infiltrate, effusion or pneumothorax demonstrated. Heart size upper limits of normal considering t echnique. Patient has had previous median sternotomy and CABG. CONCLUSION: No acute cardiopulmonary disease demonstrated. Borderline cardiomegaly. Kiko Meneses MD on August 18, 2016 at 17:32 Board Certified Radiologist. This report was verified electronically.
[2016-08-18] MEDS: DOCUSATE SODIUM 50 MG/SENNA 8.6 MG TAB PO SCH (20:42)
[2016-08-18] MEDS: GABAPENTIN 300 MG CAP PO SCH (20:42)
[2016-08-19] VITALS: BP 125/57; PULSE 67; RESP 20; TEMP 99.4; O2SAT 92
[2016-08-19 04:00] VITALS: BP 120/60; PULSE 62; RESP 20; TEMP 98.5; O2SAT 93
[2016-08-19] MEDS: LEVOTHYROXINE SODIUM 50 MCG TAB PO SCH (06:33)
[2016-08-19] MEDS: INSULIN ASPART SUPPLEMENTAL SCALE SQ SCH ×2 (06:33→11:25)
[2016-08-19] MEDS: NIFEdipine 90 MG SUSTAINED RELEASE TAB PO SCH (07:45)
[2016-08-19] MEDS: DOCUSATE SODIUM 50 MG/SENNA 8.6 MG TAB PO SCH (07:45)
[2016-08-19] MEDS: EZETIMIBE 10 MG TAB PO SCH (07:45)
[2016-08-19] MEDS: TOLTERODINE TARTRATE 4 MG CAP LA PO SCH (07:45)
[2016-08-19] MEDS: FERROUS SULFATE 325 MG (65 MG ELEMENTAL IRON) TAB PO SCH (07:45)
[2016-08-19] MEDS: traMADol HCL 50 MG TAB PO PRN (07:46)
[2016-08-19] MEDS: VALSARTAN 160 MG TAB PO SCH (07:46)
[2016-08-19] MEDS: CARVEDILOL 12.5 MG TAB PO SCH (07:46)
[2016-08-19] MEDS: SODIUM CHLORIDE 0.9% FLUSH 10 ML FLUSH IV FLUSH SCH (07:47)
[2016-08-19] MEDS: SENNOSIDES 8.6 MG TAB PO SCH (07:47)
[2016-08-19] MEDS: POLYETHYLENE GLYCOL 17 GM PKG PO SCH (07:47)
[2016-08-19] MEDS: BENZONATATE 100 MG CAP PO PRN (07:50)
[2016-08-19 08:29] VITALS: BP 132/58; PULSE 58; RESP 18; TEMP 98.2; O2SAT 92
[2016-08-19 08:38] LABS: AUTOMATED NEUTROPHIL # 5.6 TH/MM3 (1.8-7.7); BASOPHIL # 0.1 TH/MM3 (0-0.2); BASOPHIL % 0.8 % (0.0-2.0); EOSINOPHIL # 0.2 TH/MM3 (0-0.4); EOSINOPHIL % 2.1 % (0.0-4.0); HEMATOCRIT 22.9 % (35.0-46.0); HEMO FLAGS DIFF FINAL; LYMPH % 15.3 % (9.0-44.0); LYMPHOCYTE # 1.2 TH/MM3 (1.0-4.8); MEAN CELL VOLUME 88.3 FL (80.0-100.0); MEAN CORPUSCULAR HEMOGLOBIN 29.8 PG (27.0-34.0); MEAN CORPUSCULAR HGB CONC 33.7 % (32.0-36.0); MONO % 8.4 % (0.0-8.0); NEUT % 73.4 % (16.0-70.0); PLATELET COUNT 159 TH/MM3 (150-450); RED BLOOD COUNT 2.59 MIL/MM3 (4.00-5.30); WHITE BLOOD COUNT 7.6 TH/MM3 (4.0-11.0)
[2016-08-19 08:42] LABS: BICARBONATE 30.8 MEQ/L (21.0-32.0); MAGNESIUM 2.3 MG/DL (1.5-2.5); POTASSIUM 4.3 MEQ/L (3.5-5.1)
[2016-08-19] MEDS ORDERED: BENZOCAINE 6 MG/MENTHOL 10 MG LOZENGE BUCCAL PRN (10:00)
--- NOTE | 2016-08-21 12:58 | PQ ---
Physician Query Response Document PATIENT: DWAIN MEYERS : 1935 ADMIT DATE: 08/03/2016 6:46 PM DISCH DATE: 08/19/2016 12:30 PM RESPONDING PROVIDER #: [email or web address] QUERY TEXT: CHF Acuity and Type Congestive Heart Failure is documented in the Medical Record. Please document the type and acuity (in cludes probable or suspected) Such as: Type: -- Systolic -- Diastolic -- Combined -- Other, please specify Acuity: -- Acute -- Chronic -- Acute on chronic -- Other, please specify Also please document the underlying cause of the CHF (includes probable or suspected) The patient's Clinical Indicators include: History and physical: Ms. 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 Cardiac cath from 11/01/2007 conclusion : Normal ventricular function with severe left main and right coronary disease. No prior BMP or Echo in EMR. Query created by: Melquiades Silverio on 08/11/2016 12:16 PM RESPONSE TEXT: There is not documentation for CHF, I can not exclude CHF, however patient wqas not having any sympto ms regarding CHF on this admission. She does have a h/o CAD severe, and she is taking medications. So far her cath in 200 shows preserved systolic function. Clinically and per records available in [facility] no CHF Electronically signed by: Michelle Pyle MD 08/21/2016 12:54 PM
[2016-09-28] MEDS ORDERED: MAGO400T2 PO (16:21)
[2016-09-28] MEDS ORDERED: FERR325T86 PO (16:21)
[2016-09-28] MEDS ORDERED: FOLI1TAB6 PO (16:21)
== END 2016-08-19 12:30 | DRG 454 ==
LOC: NEPC 15:06 → NEDA 16:50 → NEPFCDU 20:56 → OBSVTOIN 08-03 18:46 → N05B 08-08 11:05 → N05A 08-08 22:02
PROVIDERS: ADMIT Internal Medicine; ATTEND Internal Medicine
PROC: 0RT30ZZ Resection of Cervical Vertebral Disc, Open Approach (ICD-10-PCS; 2016-08-08)
PROC: 30233N1 Transfusion of Nonautologous Red Blood Cells into Peripheral Vein, Percutaneous Approach (ICD-10-PCS; 2016-08-08)
PROC: 0RG20K0 Fusion of 2 or more Cervical Vertebral Joints with Nonautologous Tissue Substitute, Anterior Approach, Anterior Column, Open Approach (ICD-10-PCS; principal; 2016-08-08 10:36)
PROC: 0RG2071 Fusion of 2 or more Cervical Vertebral Joints with Autologous Tissue Substitute, Posterior Approach, Posterior Column, Open Approach (ICD-10-PCS; 2016-08-15)
DX: M50.223 Other cervical disc displacement at C6-C7 level (principal); N39.0 Urinary tract infection, site not specified; E11.9 Type 2 diabetes mellitus without complications; I10 Essential (primary) hypertension; J98.11 Atelectasis; B95.2 Enterococcus as the cause of diseases classified elsewhere; J95.89 Other postprocedural complications and disorders of respiratory system, not elsewhere classified; M25.78 Osteophyte, vertebrae; M48.02 Spinal stenosis, cervical region; T78.3XXA Angioneurotic edema, initial encounter; R13.19 Other dysphagia; I25.10 Atherosclerotic heart disease of native coronary artery without angina pectoris; E03.9 Hypothyroidism, unspecified; E78.00 Pure hypercholesterolemia, unspecified; E78.5 Hyperlipidemia, unspecified; K59.00 Constipation, unspecified; M50.221 Other cervical disc displacement at C4-C5 level; B96.20 Unspecified Escherichia coli [E. coli] as the cause of diseases classified elsewhere; T40.2X5A Adverse effect of other opioids, initial encounter; Y92.239 Unspecified place in hospital as the place of occurrence of the external cause; Z79.4 Long term (current) use of insulin; Z87.891 Personal history of nicotine dependence; Z95.1 Presence of aortocoronary bypass graft; Z98.1 Arthrodesis status; Z99.3 Dependence on wheelchair
CPT/HCPCS: 36430; 70450; 71010; 72040; 72156; 72157; 76000; 80048; 80053; 80069; 81001; 82550; 82607; 82805; 82948; 83735; 83921; 84207; 84425; 84443; 85014; 85018; 85025; 85027; 85610; 85652; 85730; 86038; 86039; 86592; 86850; 86900; 86901; 86920; 87077; 87086; 87186; 93005; 94002; 94150; 94667; A9579; C1713; G0378; G8987-GO; G8987-GP; G8988-GO; G8988-GP; J0131; J0690; J0696; J1170; J1580; J1650; J1815; J2250; J2270; J2405; J2710; J2930; J3010; J7030; J7120; J7512; L0150; L0172; P9016

== ENCOUNTER 2016-11-18 17:30 | Inpatient (IN) | payer MEDICARE, OTHER ==
[~2016-11-18] VITALS: Ht 157.5 cm; Wt 66.3 kg
[~2016-11-18 17:30] MED LIST changes: -ACTO35TA PO; +ALEN35TA24 PO; +APIDINJ SQ; +BENZ1CAP8 PO; -CLON.1 PO; -CLOP75 PO; +DETR4CAP PO; +DIOV160T6 PO; -ECOT81TA2 PO; -EZET10 PO; -FERR324T4 PO; +FERR325T86 PO; -FOLI1TAB PO; +FOLI1TAB6 PO; +GABA300C5 PO; -IRBE1TAB39 PO; -LEVIMER SC; -LEVO.05 PO; +LEVO50TA4 PO; +LISI40TA PO; +MAGO400T2 PO; +NIFE90TA2 PO; -OXYC-360 PO; +POLY17S PO; -RALO1TAB13 PO; +SENN1TAB PO; -TEKT300T PO; -TOLT4 PO; +TRAM-492 PO; +TRAZ50TA12 PO; -VITA400C28 PO; +ZETI10TA5 PO
[2016-11-18 18:20] VITALS: BP 144/64; PULSE 56; PULSE 57; RESP 18; RESP 20; TEMP 98.1; O2SAT 98
--- NOTE | 2016-11-18 18:50 | PD ---
HPI Chief Complaint: Numbness/Tingling Time Seen by Provider: 18:46 Travel History International Travel<30 days: No Contact w/Intl Traveler<30days: No Traveled to known affect area: No History of Present Illness HPI PATIENT STATES THAT SHE NOTICED NUMBNESS TO HER LUE FROM ELBOW DOWN ALONG WITH SWELLING, PER NH AND PATIENT THIS IS NEW. 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 PFSH Past Medical History Hx Anticoagulant Therapy: Yes (XARELTO ) Anemia: Yes Arthritis: No Asthma: No Autoimmune Disease: No Blood Disorders: No Anxiety: Yes Depression: No Heart Rhythm Problems: Yes (open heart surgery a few years ago) Cancer: No Cardiac Catheterization: Yes Cardiovascular Problems: Yes (CHF) High Cholesterol: Yes Chemotherapy: No Chest Pain: Yes Congestive Heart Failure: Yes COPD: No Cerebrovascular Accident: No Diabetes: Yes Patient Takes Glucophage: No Endocrine: No Gastrointestinal Disorders: Yes (CONSTIPATION ) GERD: No Genitourinary: Yes (UTI) Hepatitis: Yes (B) Hiatal Hernia: No Hypertension: Yes Immune Disorder: No Implanted Vascular Access Dvce: Yes Kidney Stones: No Medical other: Yes (SINUSITIS, OSTEOPOROSIS) Musculoskeletal: Yes (paralyzed in legs, CHRONIC BACK PAIN,CERVICAL DISC DSE WITH MYELOPATHY ) Neurologic: Yes (loss of use of legs) Psychiatric: No Reproductive: No Respiratory: No Migraines: No Radiation Therapy: No Renal Failure: Yes (CHRONIC KIDNEY DSE ) Seizures: No Sickle Cell Disease: No Sleep Apnea: No Thyroid Disease: Yes (HYPOTHYROID ) Ulcer: No Tetanus Vaccination: Unknown Influenza Vaccination: Yes ?: Not Menopausal: Yes Past Surgical History Abdominal Surgery: No AICD: No Arteriovenous Shunt: No Body Medical Devices: PIN BACK ? Cardiac Surgery: Yes (open heart surgery) Coronary Artery Bypass Graft: Yes (X 3 2007) Ear Surgery: No Endocrine Surgery: No Eye Surgery: No Genitourinary Surgery: No Gynecologic Surgery: Yes (hysterectomy) Hysterectomy: Yes Insulin Pump: No Joint Replacement: No Neurologic Surgery: Yes (CERVICAL SURGERY 08/2016 AND BACK SURGERY 1994) Oral Surgery: No Pacemaker: No Thoracic Surgery: No Other Surgery: Yes Social History Alcohol Use: No Tobacco Use: No (QUIT ) Substance Use: No Allergies-Medications (Allergen,Severity, Reaction): Coded Allergies: Morphine (Verified Allergy, Severe, Shortness of Breath, 11/11/16) Neosporin (Verified Allergy, Severe, Shortness of Breath, 11/11/16) Neomycin (Verified Allergy, Unknown, RASHES, 11/18/16) Penicillin (Verified Allergy, Unknown, RASHES, 11/18/16) Promethazine (Verified Allergy, Unknown, UNKNOWN, 11/18/16) Reported Meds & Prescriptions Reported Meds & Active Scripts Active Nifedipine ER (Nifedipine) 90 Mg Tab 90 Mg PO DAILY Senna Plus 8.6-50 mg (Sennosides-Docusate Sodium) 1 Tab Tab 2 Tab PO BID Polyethylene Glycol 3350 Powder (Polyethylene Glycol) 17 Gm Pow 17 Gm PO DAILY Reported Tylenol (Acetaminophen) 325 Mg Tab 650 Mg PO Q6H PRN Novolog Flexpen Inj (Insulin Aspart) 300 Unit/3 Ml Pen SQ ACHS Sliding Scale: 150-200=2 units,201-250=4 units,251-300=6 units,301-350=8 units,351-400=10 units, 401+=10 units & call Novolog Flexpen Inj (Insulin Aspart) 300 Unit/3 Ml Pen 3 Units SQ ACHS Administer as baseline with SS Xarelto (Rivaroxaban) 10 Mg Tab 10 Mg PO DAILY Thera-M (Multiple Vitamins W/ Minerals) 1 Tab 1 Tab PO HS Lantus Solostar Pen Inj (Insulin Glargine) 300 Unit/3 Ml Pen 12 Units SQ HS Folic Acid 800 Mcg Cap 4.8 Mg PO DAILY Magox 400 (Magnesium Oxide) 400 Mg Tablet 400 Mg PO BID Ferrousul (Ferrous Sulfate) 325 Mg Tab 325 Mg PO BID Coreg Cr 24 HR (Carvedilol) 40 Mg Cap 40 Mg PO DAILY Zetia (Ezetimibe) 10 Mg Tab 10 Mg PO HS Tramadol Hydrochloride (Tramadol HCl) 50 Mg Tab 50 Mg PO Q4HR PRN Lisinopril 40 Mg Tab 40 Mg PO DAILY Levothyroxine (Levothyroxine Sodium) 50 Mcg Tab 50 Mcg PO DAILY Gabapentin 300 Mg Cap 300 Mg PO HS Detrol LA (Tolterodine Tartrate) 4 Mg Cap 4 Mg PO DAILY Crestor (Rosuvastatin Calcium) 10 Mg Tab 10 Mg PO HS Alendronate (Alendronate Sodium) 35 Mg Tab 35 Mg PO Q7D Review of Systems Except as stated in HPI: all other systems reviewed are Neg Neurologic: Positive: Paresthesia (LUE FROM ELBOW BELOW ONSET THIS AM) Physical Exam Narrative GENERAL: SKIN: Warm and dry. HEAD: Atraumatic. Normocephalic. EYES: Pupils equal and round. No scleral icterus. No injection or drainage. ENT: No nasal bleeding or discharge. Mucous membranes pink and moist. NECK: Trachea midline. No JVD. CARDIOVASCULAR: Regular rate and rhythm. RESPIRATORY: No accessory muscle use. Clear to auscultation. Breath sounds equal bilaterally. GASTROINTESTINAL: Abdomen soft, non-tender, nondistended. Hepatic and splenic margins not palpable. MUSCULOSKELETAL: Extremities without clubbing, cyanosis, or edema. No obvious deformities. PT IS NOTED TO HAVE EDEMA TO LUE ALONG WITH NUMBNESS TO LIGHT TOUCH OF LEFT FOREARM REGION, LEFT SHOULDER/BICEPS WNL TO LIGHT TOUCH. NEUROLOGICAL: Awake and alert. No obvious cranial nerve deficits. Motor grossly within normal limits. Normal speech. PATIENT IS ABLE TO MOVE ALL 4 EXTREMITIES PSYCHIATRIC: Appropriate mood and affect; insight and judgment normal. Data Data Last Documented VS Vital Signs Date Time Temp Pulse Resp B/P Pulse Ox O2 Delivery O2 Flow Rate FiO2 11/18/16 18:20 98 Room Air 11/18/16 18:20 98.1 57 20 144/64 Orders Electrocardiogram (11/18/16 ) Complete Blood Count With Diff (11/18/16 18:25) Basic Metabolic Panel (Bmp) (11/18/16 18:25) Prothrombin Time / Inr (Pt) (11/18/16 18:25) Act Partial Throm Time (Ptt) (11/18/16 18:25) Us Arm Venous Doppler (11/18/16 18:43) Mri C Spine W&W/O Contrast (11/18/16 ) Ckmb (Isoenzyme) Profile (11/18/16 18:15) Troponin I (11/18/16 18:15) Gadodiamide Pf Inj (Omniscan Pf Inj) (11/18/16 20:14) Elevate Head Of Bed (11/18/16 21:34) Intake + Output BETH.Q8H (11/18/16 21:34) Diet Regular Basic (11/19/16 Breakfast) Complete Blood Count With Diff (11/19/16 06:00) Basic Metabolic Panel (Bmp) (11/19/16 06:00) Resp Incentive Spirometry (11/18/16 21:34) Consult Pt Eval & Treat (11/18/16 21:34) Consult Hospitalist (11/18/16 21:34) Radha Gil Collar (11/18/16 21:34) Activity Oob With Assistance PRN (11/18/16 21:34) Scd Bilateral/Knee High BETH.QSHIFT (11/18/16 21:34) Neuro Checks RT.Q1H (11/18/16 21:34) Vital Signs (Adult) BETH.Q1H (11/18/16 21:34) Inpatient Certification (11/18/16 ) Acetaminophen (Tylenol) (11/18/16 21:45) Ezetimibe (Zetia) (11/19/16 21:00) Ferrous Sulfate (Ferrous Sulfate) (11/19/16 09:00) Folic Acid (Folate) (11/19/16 09:00) Gabapentin (Neurontin) (11/19/16 21:00) Levothyroxine (Synthroid) (11/19/16 07:00) Magnesium Oxide (Mag-Ox) (11/19/16 09:00) Multivitamins-Minerals Therap (Theragran (11/19/16 21:00) Nifedipine Sr (Procardia Xl) (11/19/16 09:00) Polyethylene Glycol (Miralax) (11/19/16 09:00) Docusate Sodium-Senna (Kandi-Colace) (11/19/16 09:00) Tolterodine La (Detrol La) (11/19/16 09:00) Tramadol (Ultram) (11/18/16 21:45) (Nf) Alendronate (11/18/16 21:45) Carvedilol (Coreg) (11/19/16 09:00) Insulin Aspart Inj (Novolog Inj) (11/19/16 07:00) Insulin Detemir Inj (Levemir Inj) (11/19/16 21:00) Lisinopril (Prinivil) (11/19/16 09:00) Blood Glucose Goal (Criteria) (11/18/16 21:41) Hypoglycemia 70 Mg/Dl Or < (11/18/16 21:41) Notify Dr: Other (11/18/16 21:41) Dextrose 50% In [place] (Vial) Inj (D50w (Vi (11/18/16 21:45) Glucagon Inj (Glucagon Inj) (11/18/16 21:45) Insulin Human Reg Supp Scale (Novolin R (11/19/16 07:00) Brace [place] Collar (11/18/16 ) Collar [place] (11/18/16 ) Admit Order (Ed Use Only) (11/18/16 21:58) Labs Laboratory Tests Test 11/18/16 18:15 White Blood Count 5.2 TH/MM3 Red Blood Count 3.82 MIL/MM3 Hemoglobin 11.2 GM/DL Hematocrit 34.2 % Mean Corpuscular Volume 89.5 FL Mean Corpuscular Hemoglobin 29.4 PG Mean Corpuscular Hemoglobin 32.8 % Concent Red Cell Distribution Width 15.9 % Platelet Count 172 TH/MM3 Mean Platelet Volume 9.3 FL Neutrophils (%) (Auto) 60.0 % Lymphocytes (%) (Auto) 26.5 % Monocytes (%) (Auto) 9.7 % Eosinophils (%) (Auto) 2.7 % Basophils (%) (Auto) 1.1 % Neutrophils # (Auto) 3.1 TH/MM3 Lymphocytes # (Auto) 1.4 TH/MM3 Monocytes # (Auto) 0.5 TH/MM3 Eosinophils # (Auto) 0.1 TH/MM3 Basophils # (Auto) 0.1 TH/MM3 CBC Comment DIFF FINAL Differential Comment Prothrombin Time 11.4 SEC Prothromb Time International 1.0 RATIO Ratio Activated Partial 38.1 SEC Thromboplast Time Sodium Level 137 MEQ/L Potassium Level 4.9 MEQ/L Chloride Level 101 MEQ/L Carbon Dioxide Level 29.0 MEQ/L Anion Gap 7 MEQ/L Blood Urea Nitrogen 36 MG/DL Creatinine 0.81 MG/DL Estimat Glomerular Filtration 68 ML/MIN Rate Random Glucose 188 MG/DL Calcium Level 8.9 MG/DL Total Creatine Kinase 62 U/L Troponin I LESS THAN 0.02 NG/ML MDM Medical Decision Making Medical Screen Exam Complete: Yes Emergency Medical Condition: Yes Medical Record Reviewed: Yes Differential Diagnosis DVT V RADICULOPATHY V PARESTHESIA Narrative Course signed out to dr rodriguez since patient seen within 15minutes of shift change Diagnosis Primary Impression: LUE PARManfred Littlejohn MD Nov 18, 2016 18:50
[2016-11-18 19:18] LABS: AUTOMATED NEUTROPHIL # 3.1 TH/MM3 (1.8-7.7); BASOPHIL # 0.1 TH/MM3 (0-0.2); BASOPHIL % 1.1 % (0.0-2.0); EOSINOPHIL # 0.1 TH/MM3 (0-0.4); EOSINOPHIL % 2.7 % (0.0-4.0); HEMATOCRIT 34.2 % (35.0-46.0); HEMO FLAGS DIFF FINAL; LYMPH % 26.5 % (9.0-44.0); LYMPHOCYTE # 1.4 TH/MM3 (1.0-4.8); MEAN CELL VOLUME 89.5 FL (80.0-100.0); MEAN CORPUSCULAR HEMOGLOBIN 29.4 PG (27.0-34.0); MEAN CORPUSCULAR HGB CONC 32.8 % (32.0-36.0); MONO % 9.7 % (0.0-8.0); PLATELET COUNT 172 TH/MM3 (150-450); RED BLOOD COUNT 3.82 MIL/MM3 (4.00-5.30); RED CELL DISTRIBUTION WIDTH 15.9 % (11.6-17.2); WHITE BLOOD COUNT 5.2 TH/MM3 (4.0-11.0)
[2016-11-18] MEDS ORDERED: NOVOINJ3 SQ (19:37)
[2016-11-18] MEDS ORDERED: XARE10TA PO (19:37)
[2016-11-18] MEDS ORDERED: FOLI1CAP7 PO (19:37)
[2016-11-18] MEDS ORDERED: TYLE325T PO (19:37)
[2016-11-18] MEDS ORDERED: LANTINJ SQ (19:37)
[2016-11-18] MEDS ORDERED: THERTAB17 PO (19:37)
[2016-11-18 19:40] LABS: ANION GAP 7 MEQ/L (5-15); BLOOD UREA NITROGEN 36 MG/DL (7-18); CHLORIDE 101 MEQ/L (98-107); GLOMERULAR FILTRATION RATE 68 ML/MIN (>89); POTASSIUM 4.9 MEQ/L (3.5-5.1); SODIUM (NA) 137 MEQ/L (136-145)
[2016-11-18 19:43] LABS: PROTHROMBIN TIME - PATIENT 11.4 SEC (9.8-11.6)
[2016-11-18 19:44] LABS: APTT (PATIENT) 38.1 SEC (24.3-30.1)
--- NOTE | 2016-11-18 20:11 | PD ---
Data Data Last Documented VS Vital Signs Date Time Temp Pulse Resp B/P Pulse Ox O2 Delivery O2 Flow Rate FiO2 11/18/16 18:20 98 Room Air 11/18/16 18:20 98.1 57 20 144/64 Orders Electrocardiogram (11/18/16 ) Complete Blood Count With Diff (11/18/16 18:25) Basic Metabolic Panel (Bmp) (11/18/16 18:25) Prothrombin Time / Inr (Pt) (11/18/16 18:25) Act Partial Throm Time (Ptt) (11/18/16 18:25) Us Arm Venous Doppler (11/18/16 18:43) Mri C Spine W&W/O Contrast (11/18/16 ) Ckmb (Isoenzyme) Profile (11/18/16 18:15) Troponin I (11/18/16 18:15) Gadodiamide Pf Inj (Omniscan Pf Inj) (11/18/16 20:14) Admit To Inpatient (11/18/16 21:34) Elevate Head Of Bed (11/18/16 21:34) Intake + Output BETH.Q8H (11/18/16 21:34) Diet Regular Basic (11/19/16 Breakfast) Complete Blood Count With Diff (11/19/16 06:00) Basic Metabolic Panel (Bmp) (11/19/16 06:00) Resp Incentive Spirometry (11/18/16 21:34) Consult Pt Eval & Treat (11/18/16 21:34) Consult Hospitalist (11/18/16 21:34) [place] J Collar (11/18/16 21:34) Activity Oob With Assistance PRN (11/18/16 21:34) Scd Bilateral/Knee High BETH.QSHIFT (11/18/16 21:34) Neuro Checks RT.Q1H (11/18/16 21:34) Vital Signs (Adult) BETH.Q1H (11/18/16 21:34) Inpatient Certification (11/18/16 ) Acetaminophen (Tylenol) (11/18/16 21:45) Ezetimibe (Zetia) (11/19/16 21:00) Ferrous Sulfate (Ferrous Sulfate) (11/19/16 09:00) Folic Acid (Folate) (11/19/16 09:00) Gabapentin (Neurontin) (11/19/16 21:00) Levothyroxine (Synthroid) (11/19/16 07:00) Magnesium Oxide (Mag-Ox) (11/19/16 09:00) Multivitamins-Minerals Therap (Theragran (11/19/16 21:00) Nifedipine Sr (Procardia Xl) (11/19/16 09:00) Polyethylene Glycol (Miralax) (11/19/16 09:00) Docusate Sodium-Senna (Kandi-Colace) (11/19/16 09:00) Tolterodine La (Detrol La) (11/19/16 09:00) Tramadol (Ultram) (11/18/16 21:45) (Nf) Alendronate (11/18/16 21:45) Carvedilol (Coreg) (11/19/16 09:00) Insulin Aspart Inj (Novolog Inj) (11/19/16 07:00) Insulin Detemir Inj (Levemir Inj) (11/19/16 21:00) Lisinopril (Prinivil) (11/19/16 09:00) Blood Glucose Goal (Criteria) (11/18/16 21:41) Hypoglycemia 70 Mg/Dl Or < (11/18/16 21:41) Notify Dr: Other (11/18/16 21:41) Dextrose 50% In Nazia (Vial) Inj (D50w (Vi (11/18/16 21:45) Glucagon Inj (Glucagon Inj) (11/18/16 21:45) Insulin Human Reg Supp Scale (Novolin R (11/19/16 07:00) (Hub Use Only)Inp Phy Cons/Ref (11/18/16 ) Brace [place] Collar (11/18/16 ) Collar [place] (11/18/16 ) Admit Order (Ed Use Only) (11/18/16 21:58) Labs Laboratory Tests Test 11/18/16 18:15 White Blood Count 5.2 TH/MM3 Red Blood Count 3.82 MIL/MM3 Hemoglobin 11.2 GM/DL Hematocrit 34.2 % Mean Corpuscular Volume 89.5 FL Mean Corpuscular Hemoglobin 29.4 PG Mean Corpuscular Hemoglobin 32.8 % Concent Red Cell Distribution Width 15.9 % Platelet Count 172 TH/MM3 Mean Platelet Volume 9.3 FL Neutrophils (%) (Auto) 60.0 % Lymphocytes (%) (Auto) 26.5 % Monocytes (%) (Auto) 9.7 % Eosinophils (%) (Auto) 2.7 % Basophils (%) (Auto) 1.1 % Neutrophils # (Auto) 3.1 TH/MM3 Lymphocytes # (Auto) 1.4 TH/MM3 Monocytes # (Auto) 0.5 TH/MM3 Eosinophils # (Auto) 0.1 TH/MM3 Basophils # (Auto) 0.1 TH/MM3 CBC Comment DIFF FINAL Differential Comment Prothrombin Time 11.4 SEC Prothromb Time International 1.0 RATIO Ratio Activated Partial 38.1 SEC Thromboplast Time Sodium Level 137 MEQ/L Potassium Level 4.9 MEQ/L Chloride Level 101 MEQ/L Carbon Dioxide Level 29.0 MEQ/L Anion Gap 7 MEQ/L Blood Urea Nitrogen 36 MG/DL Creatinine 0.81 MG/DL Estimat Glomerular Filtration 68 ML/MIN Rate Random Glucose 188 MG/DL Calcium Level 8.9 MG/DL Total Creatine Kinase 62 U/L Troponin I LESS THAN 0.02 NG/ML MDM Supervised Visit with CHRISTY: No Narrative Course Patient signed out to me by previous provider. Please see associated no for further details. In short patient is a 81-year-old female who is convalescing at a [facility] facility, is DNR, though recently had a C5 [address] Eddy. Patient had been doing well at her follow-up appointment earlier this week, her cervical collar was removed and she had order for physical therapy written. However patient began to develop numbness and tingling in the bilateral upper extremities left greater than right primarily from the elbow distally. She does also have edema in the left upper extremity. She is anticoagulated on Xarelto. Case discussed with Dr. Eddy by previous provider. Recommended MRI of the cervical spine. Patient signed out to me pending laboratory workup, MRI and as well as duplex ultrasound of the left upper extremity to rule out DVT. Laboratory workup unremarkable Duplex ultrasound of the left upper extremity showed DVT in the left axillary and brachial arteries. Patient again is already anticoagulated on Xarelto. MRI of the cervical spine showed interval development of central disc protrusion C2-3 and C3-4 causing impression of the cervical cord, central spinal canal stenosis. This along with her symptoms are consistent with central cord syndrome. She does have prominent soft tissue edema diffuse enhancement of the surgical site of the posterior soft tissue C3 to C7. No fluid collection though concerning for possible C5 and C6 osteomyelitis. I spoke with Dr. Eddy, who ordered cervical collar and will admit patient to the ICU for further management. Critical Care Narrative Aggregate critical care time was 45 minutes. Time to perform other separately billable procedures was not included in the critical care time. My time did not include minutes spent treating any other patients simultaneously or on activities that did not directly contribute to the patient's treatment. The services I provided to this patient were to treat and/or prevent clinically significant deterioration that could result in: Neurologic decompensation, , disability I provided critical care services requiring my management, as noted below: Chart data review, documentation time, medication orders and management, vital sign assessments/reviewing monitor data, ordering and reviewing lab tests, ordering and interpreting/reviewing x-rays and diagnostic studies, care of the patient and discussion of the patient with the admitting physicians. Diagnosis Primary Impression: Central cord syndrome Qualified Code: S14.129A - Central cord syndrome, initial encounter Additional Impressions: LUE PARESTHESIA Cervical myelopathy Deep vein thrombosis (DVT) of left upper extremity Qualified Code: I82.A12 - Acute deep vein thrombosis (DVT) of axillary vein of left upper extremity Admitting Information Admitting Physician Requests: it Marion Rowley MD Nov 18, 2016 20:11
[2016-11-18] MEDS ORDERED: GADODIAMIDE PF 287 MG/ML 5 ML VIAL (for RAD MRI) IV ONE (20:14)
[2016-11-18 20:22] LABS: CREATINE KINASE 62 U/L (26-192)
--- NOTE | 2016-11-18 21:03 | RADRPT ---
EXAM DATE/TIME: 11/18/2016 19:50 [facility] COMPARISON: SPINE CERVICAL LTD (AP&LAT), August 15, 2016, 14:52. MRI CERVICAL SPINE W & W/O CONTRAST, August 10 7, 10:03. INDICATIONS : Extremity numbness. Bilateral upper extremity weakness. CONTRAST: 14 cc Omniscan (gadodiamide) IV MEDICAL HISTORY : Hypertension. Diabetes mellitus type 2. SURGICAL HISTORY : Fusion, cervical. Fusion, lumbar. CABG ENCOUNTER: Initial ACUITY: 1 day PAIN SCORE: 0/10 LOCATION: [facility] TECHNIQUE: Multiplanar, multisequence MRI examination of the cervical spine was performed. FINDINGS: Comparison is made to an MRI of the cervical spine on 08/10/16, and there has been interval cervical s urgery since then. The prior exam had demonstrated abnormal signal within the cord at the C4-5 level . Today's examination demonstrates concentric spinal canal stenosis at the C2-3, C3-4 levels which is a new finding when compared to the preoperative MR. There is absent CSF about the cervical cord at th sarah levels. On both the axial and sagittal images, there is evidence of central protrusion of the di sc at both of these levels contributing to the spinal stenosis. No definite signal abnormalities see n within the substance of the cord at this level. There is prominent soft tissue signal abnormality in the soft tissues of the posterior cervical spine extending from C3-C7 with scattered areas of T2 prolongation and prominent areas of enhancement surr ounding the posterior spinal hardware. There is field distortion artifact at the C4 level, but on in version recovery images, no definite spinal stenosis seen at this level. The abnormal signal within the substance of the cord at C4 is similar to the preoperative exam. No areas of homogeneous enhancement in the mildly prominent prevertebral soft tissues extending from C1-C4.. No definite prevertebral fluid collections. CONCLUSION: 1. Interval development of central disc protrusions at C2-3 and C3-4 causing impression on the cervic al cord and spinal canal stenosis. 2. Prominent soft tissue edema and diffuse enhancement about the surgical site in the posterior soft tissues extending from C3-C7. No definite fluid collections seen. There is signal abnormality with enhancement, however, involving the spinous process of C5 and C6 suggesting possible osteomyelitis. 3. Stable myelomalacia at the C4 level. No abnormal areas of enhancement within the substance of the cervical cord. Juna Beltre MD on November 18, 2016 at 20:52 Board Certified Radiologist. This report was verified electronically.
--- NOTE | 2016-11-18 21:17 | RADRPT ---
EXAM DATE/TIME: 11/18/2016 20:25 [facility] COMPARISON: No previous studies available for comparison. INDICATIONS : Left arm edema. MEDICAL HISTORY : Hypercholesterolemia. Hypertension. Hypothyroid. Congestivel heart failure. Chronic kidney disease . Anemia. Anxiety. Hepatitis. Osteoporosis. SURGICAL HISTORY : CABG Hysterectomy. Cardiac catheterization. Back surgery. ENCOUNTER: Initial ACUITY: 1 day PAIN SCORE: 6/10 LOCATION: Left arm. FINDINGS: The examination is abnormal demonstrating absent flow in the axillary vein and brachial vein and non- compressibility of the vessels. Some flow is seen in the subclavian vein. CONCLUSION: Positive for deep venous thrombosis in the axillary and brachial veins. Juan Beltre MD on November 18, 2016 at 21:14 Board Certified Radiologist. This report was verified electronically.
[2016-11-18] MEDS ORDERED: ALENDRONATE 35 MG PO SCH (21:45)
[2016-11-18] MEDS ORDERED: DEXTROSE 50% IN WATER 50 ML VIAL(D50) IV PRN (21:45)
[2016-11-18] MEDS ORDERED: GLUCAGON 1 MG/ML VIAL OTHER PRN (21:45)
[2016-11-18 22:00] VITALS: BP 150/64; PULSE 60; RESP 16; O2SAT 96
--- NOTE | 2016-11-18 22:32 | HHI.HP ---
[facility] Service Neurosurgery Primary Care Physician Deana Retana M.D. Chief Complaint: Upper extremity numbness History of Present Illness 81-year-old female previously admitted to [facility] through the emergency room July 2016 with a 7 month history of progressive upper extremity and lower extremity weakness and sensory loss with inability to ambulate. Initial imaging studies revealed severe mid cervical stenosis with significant signal intensity changes within the cord. Patient underwent anterior and posterior decompression as follows: 08/08/16 C4 5 and C6 7 anterior cervical discectomy, resection herniated nucleus pulposus and posterior osteophytic disc complexes-microtechnique. C4 5 and C6 7 anterior interbody fusion with composite allograft bone. C4 5 and C6 7 anterior cervical instrumentation 08/15/16 - bilateral C4, C5, C6, C7 decompressive semi-laminectomy, medial facetectomy for dorsal spinal cord decompression with bilateral C4-C7 posterior instrumentation, bilateral C7 pedicle screw fixation and bilateral C4-C7 posterior fusion with local autograft and allograft bone The patient was seen in the office for follow-up within the past week and a postoperative CT scan revealed good incorporation of the graft and instrumentation. The patient was doing very well at that time was significant improvement in her severe preoperative quadriparesis, starting to ambulate with a walker. Patient longterm facility contacted neurosurgery office today indicating increased numbness in the upper extremities today. Patient brought into the emergency room for further evaluation with MRI scan accomplished which reveals new areas of upper cervical stenosis with cord compression and question of infection. Review of Systems Constitutional: DENIES: Fever, Chills Eyes: DENIES: Blurred vision Ears, nose, mouth, throat: DENIES: Vertigo Respiratory: DENIES: Cough, Shortness of breath Cardiovascular: DENIES: Chest pain, Palpitations Gastrointestinal: DENIES: Abdominal pain, Nausea Musculoskeletal: COMPLAINS OF: Neck pain, DENIES: Joint pain Hematologic/lymphatic: DENIES: Bruising Neurologic: COMPLAINS OF: Abnormal gait, Localized weakness, Paresthesias, Poor Balance, DENIES: Headache Psychiatric: DENIES: Anxiety Past Family Social History Allergies: Coded Allergies: Morphine (Verified Allergy, Severe, Shortness of Breath, 11/11/16) Neosporin (Verified Allergy, Severe, Shortness of Breath, 11/11/16) Neomycin (Verified Allergy, Unknown, RASHES, 11/18/16) Penicillin (Verified Allergy, Unknown, RASHES, 11/18/16) Promethazine (Verified Allergy, Unknown, UNKNOWN, 11/18/16) Past Medical History Diabetes Hypertension Hypercholesterolemia Coronary artery disease CHF Upper extremity venous thrombosis Past Surgical History Coronary artery bypass Hysterectomy Lumbar spine surgery Cervical spine surgery Reported Medications Reported Meds & Active Scripts Active Nifedipine ER (Nifedipine) 90 Mg Tab 90 Mg PO DAILY Senna Plus 8.6-50 mg (Sennosides-Docusate Sodium) 1 Tab Tab 2 Tab PO BID Polyethylene Glycol 3350 Powder (Polyethylene Glycol) 17 Gm Pow 17 Gm PO DAILY Reported Tylenol (Acetaminophen) 325 Mg Tab 650 Mg PO Q6H PRN Novolog Flexpen Inj (Insulin Aspart) 300 Unit/3 Ml Pen SQ ACHS Sliding Scale: 150-200=2 units,201-250=4 units,251-300=6 units,301-350=8 units,351-400=10 units, 401+=10 units & call Novolog Flexpen Inj (Insulin Aspart) 300 Unit/3 Ml Pen 3 Units SQ ACHS Administer as baseline with SS Xarelto (Rivaroxaban) 10 Mg Tab 10 Mg PO DAILY Thera-M (Multiple Vitamins W/ Minerals) 1 Tab 1 Tab PO HS Lantus Solostar Pen Inj (Insulin Glargine) 300 Unit/3 Ml Pen 12 Units SQ HS Folic Acid 800 Mcg Cap 4.8 Mg PO DAILY Magox 400 (Magnesium Oxide) 400 Mg Tablet 400 Mg PO BID Ferrousul (Ferrous Sulfate) 325 Mg Tab 325 Mg PO BID Coreg Cr 24 HR (Carvedilol) 40 Mg Cap 40 Mg PO DAILY Zetia (Ezetimibe) 10 Mg Tab 10 Mg PO HS Tramadol Hydrochloride (Tramadol HCl) 50 Mg Tab 50 Mg PO Q4HR PRN Lisinopril 40 Mg Tab 40 Mg PO DAILY Levothyroxine (Levothyroxine Sodium) 50 Mcg Tab 50 Mcg PO DAILY Gabapentin 300 Mg Cap 300 Mg PO HS Detrol LA (Tolterodine Tartrate) 4 Mg Cap 4 Mg PO DAILY Crestor (Rosuvastatin Calcium) 10 Mg Tab 10 Mg PO HS Alendronate (Alendronate Sodium) 35 Mg Tab 35 Mg PO Q7D Social History Presently residing in longterm facility No alcohol Quit smoking many years ago Physical Exam Vital Signs Vital Signs Date Time Temp Pulse Resp B/P Pulse Ox O2 Delivery O2 Flow Rate FiO2 11/18/16 18:20 98 Room Air 11/18/16 18:20 98.1 57 20 144/64 98 11/18/16 18:20 56 18 144/64 98 Room Air Physical Exam Gen.: Normal developed female examined in the emergency room. Appears comfortable HEENT: Sclerae are clear and nonicteric. Oropharynx clear. No facial edema. Respiratory: Clear to auscultation Cardiac: Regular without murmur, no carotid bruit Abdomen: Soft, nontender, positive bowel sounds Extremities: Mild upper and lower extremity edema. No CVA Tenderness Skin: No significant skin lesion or rash. Warm and dry Musculoskeletal: No significant joint pain. Mild Achilles contractures Neurologic: Awake alert oriented conversant and appropriate Speech clear Recent and remote memory intact Reasonable judgment and insight No evidence of anxiety or depression Sensation moderately diminished light touch diffuse upper extremities Sensation mildly diminished distal lower extremities Strength mostly 4/5 throughout the upper and lower extremities with 3/5 tibialis anterior Ciarra's response mild positive bilateral No ankle clonus Plantar neutral Laboratory Laboratory Tests Test 11/18/16 18:15 White Blood Count 5.2 Red Blood Count 3.82 Hemoglobin 11.2 Hematocrit 34.2 Mean Corpuscular Volume 89.5 Mean Corpuscular Hemoglobin 29.4 Mean Corpuscular Hemoglobin 32.8 Concent Red Cell Distribution Width 15.9 Platelet Count 172 Mean Platelet Volume 9.3 Neutrophils (%) (Auto) 60.0 Lymphocytes (%) (Auto) 26.5 Monocytes (%) (Auto) 9.7 Eosinophils (%) (Auto) 2.7 Basophils (%) (Auto) 1.1 Neutrophils # (Auto) 3.1 Lymphocytes # (Auto) 1.4 Monocytes # (Auto) 0.5 Eosinophils # (Auto) 0.1 Basophils # (Auto) 0.1 CBC Comment DIFF FINAL Differential Comment Prothrombin Time 11.4 Prothromb Time International 1.0 Ratio Activated Partial 38.1 Thromboplast Time Sodium Level 137 Potassium Level 4.9 Chloride Level 101 Carbon Dioxide Level 29.0 Anion Gap 7 Blood Urea Nitrogen 36 Creatinine 0.81 Estimat Glomerular Filtration 68 Rate Random Glucose 188 Calcium Level 8.9 Total Creatine Kinase 62 Troponin I LESS THAN 0.02 Result Diagram: 11/18/16 1815 11/18/16 1815 Imaging Last Impressions Upper Extremity Ultrasound 11/18/16 1843 Signed Impressions: Service Date/Time: Friday, November 18, 2016 20:25 - CONCLUSION: Positive for deep venous thrombosis in the axillary and brachial veins. Juan Beltre MD Cervical Spine MRI 11/18/16 0000 Signed Impressions: Service Date/Time: Friday, November 18, 2016 19:50 - CONCLUSION: 1. Interval development of central disc protrusions at C2-3 and C3-4 causing impression on the cervical cord and spinal canal stenosis. 2. Prominent soft tissue edema and diffuse enhancement about the surgical site in the posterior soft tissues extending from C3-C7. No definite fluid collections seen. There is signal abnormality with enhancement, however, involving the spinous process of C5 and C6 suggesting possible osteomyelitis. 3. Stable myelomalacia at the C4 level. No abnormal areas of enhancement within the substance of the cervical cord. Juan Beltre MD Assessment and Plan Assessment and Plan Impression: 1. Development of increasing stenosis above previous C4 anterior- posterior cervical decompression site. Now with significant C2 3 and C3 4 stenosis with anterior and posterior compression. Positive increased spinal cord signal intensity at the C3 4 level. Question of infection versus inflammatory tissue at the posterior cervical operative site. No definite abscess or focal fluid collection. No elevation of white count. 2. Hypertension 3. Diabetes 4. Upper extremity DVT-on Xarelto Plan: Admit for close neurologic checks vital signs. Hold Xarelto pending surgery for posterior decompression C2-4 with additional stabilization. Anticipate possible surgery on 11/23/16 due to anticoagulation. Defer further treatment for upper extremity DVT to medicine service- consultation placed. May need bridging heparin drip prior to surgery. Continue insulin sliding scale Continue antihypertensive medications PT consult Sav Eddy MD Nov 18, 2016 22:32
[2016-11-19] VITALS (8 sets, daily range): BP systolic 103–158; BP diastolic 45–62; PULSE 60–66; RESP 17–20; TEMP 96.7–98; O2SAT 97–100
[2016-11-19] MEDS: traMADol HCL 50 MG TAB PO PRN ×2 (02:27→10:54)
[2016-11-19] MEDS: LEVOTHYROXINE SODIUM 50 MCG TAB PO SCH (06:43)
[2016-11-19] MEDS: INSULIN ASPART 1,000 UNITS/10 ML VIAL SQ SCH ×4 (06:45→21:13)
[2016-11-19] MEDS: INSULIN NovoLIN REGULAR SUPPLEMENTAL SCALE SQ SCH ×4 (06:48→21:13)
[2016-11-19 08:28] LABS: AUTOMATED NEUTROPHIL # 3.2 TH/MM3 (1.8-7.7); BASOPHIL # 0.1 TH/MM3 (0-0.2); BASOPHIL % 1.3 % (0.0-2.0); EOSINOPHIL # 0.2 TH/MM3 (0-0.4); EOSINOPHIL % 2.9 % (0.0-4.0); HEMATOCRIT 35.6 % (35.0-46.0); HEMO FLAGS DIFF FINAL; LYMPH % 26.9 % (9.0-44.0); LYMPHOCYTE # 1.4 TH/MM3 (1.0-4.8); MEAN CELL VOLUME 88.8 FL (80.0-100.0); MEAN CORPUSCULAR HEMOGLOBIN 29.4 PG (27.0-34.0); MEAN CORPUSCULAR HGB CONC 33.1 % (32.0-36.0); MONO % 7.6 % (0.0-8.0); NEUT % 61.3 % (16.0-70.0); PLATELET COUNT 188 TH/MM3 (150-450); RED BLOOD COUNT 4.01 MIL/MM3 (4.00-5.30); RED CELL DISTRIBUTION WIDTH 15.9 % (11.6-17.2); WHITE BLOOD COUNT 5.2 TH/MM3 (4.0-11.0)
[2016-11-19 08:48] LABS: BICARBONATE 28.8 MEQ/L (21.0-32.0); POTASSIUM 4.6 MEQ/L (3.5-5.1)
[2016-11-19] MEDS: FOLIC ACID 1 MG TAB PO SCH (09:00)
[2016-11-19] MEDS: TOLTERODINE TARTRATE 4 MG CAP LA PO SCH (10:40)
[2016-11-19] MEDS: NIFEdipine 90 MG SUSTAINED RELEASE TAB PO SCH (10:40)
[2016-11-19] MEDS: LISINOPRIL 20 MG TAB PO SCH (10:41)
[2016-11-19] MEDS: FERROUS SULFATE 325 MG (65 MG ELEMENTAL IRON) TAB PO SCH ×2 (10:41→20:59)
[2016-11-19] MEDS: DOCUSATE SODIUM 50 MG/SENNA 8.6 MG TAB PO SCH ×2 (10:41→20:59)
[2016-11-19] MEDS: CARVEDILOL 12.5 MG TAB PO SCH ×2 (10:41→20:59)
[2016-11-19] MEDS: MAGNESIUM OXIDE 400 MG TAB PO SCH ×2 (10:41→20:59)
[2016-11-19] MEDS: POLYETHYLENE GLYCOL 17 GM PKG PO SCH (10:55)
--- NOTE | 2016-11-19 11:39 | HHI.NSPN ---
(Myrtle Trotter) Note Status Status: Progress Note (Myrtle Trotter) Interval History Interval History 81-year-old female previously admitted to [facility] through the emergency room July 2016 with a 7 month history of progressive upper extremity and lower extremity weakness and sensory loss with inability to ambulate. Initial imaging studies revealed severe mid cervical stenosis with significant signal intensity changes within the cord. Patient underwent anterior and posterior decompression as follows: 08/08/16 C4 5 and C6 7 anterior cervical discectomy, resection herniated nucleus pulposus and posterior osteophytic disc complexes-microtechnique. C4 5 and C6 7 anterior interbody fusion with composite allograft bone. C4 5 and C6 7 anterior cervical instrumentation 08/15/16 - bilateral C4, C5, C6, C7 decompressive semi-laminectomy, medial facetectomy for dorsal spinal cord decompression with bilateral C4-C7 posterior instrumentation, bilateral C7 pedicle screw fixation and bilateral C4-C7 posterior fusion with local autograft and allograft bone The patient was seen in the office for follow-up within the past week and a postoperative CT scan revealed good incorporation of the graft and instrumentation. The patient was doing very well at that time was significant improvement in her severe preoperative quadriparesis, starting to ambulate with a walker. Patient group home facility contacted neurosurgery office today indicating increased numbness in the upper extremities today. Patient brought into the emergency room for further evaluation with MRI scan accomplished which reveals new areas of upper cervical stenosis with cord compression and question of infection. 11/19: doing well, stable overnight. no new complaints currently (Myrtle Trotter) Labs, Micro, & Vital Signs Results Date Time Temp Pulse Resp B/P Pulse Ox O2 Delivery O2 Flow Rate FiO2 11/19/16 08:00 97.3 64 20 146/62 98 11/19/16 04:00 97.0 62 17 145/55 100 11/19/16 01:17 97.0 64 17 126/45 98 11/19/16 01:15 97.0 64 17 126/48 98 11/18/16 22:00 60 16 150/64 96 Room Air 11/18/16 18:20 98 Room Air 11/18/16 18:20 98.1 57 20 144/64 98 11/18/16 18:20 56 18 144/64 98 Room Air 11/19/16 07:00 Intake Total 480 ml Balance 480 ml Constitutional Vital Signs Date Time Temp Pulse Resp B/P Pulse Ox O2 Delivery O2 Flow Rate FiO2 11/19/16 08:00 97.3 64 20 146/62 98 11/19/16 04:00 97.0 62 17 145/55 100 11/19/16 01:17 97.0 64 17 126/45 98 11/19/16 01:15 97.0 64 17 126/48 98 11/18/16 22:00 60 16 150/64 96 Room Air 11/18/16 18:20 98 Room Air 11/18/16 18:20 98.1 57 20 144/64 98 11/18/16 18:20 56 18 144/64 98 Room Air 11/19/16 07:00 Intake Total 480 ml Balance 480 ml (Myrtle Trotter) Review of Systems/Exam Exam Awake, alert. Speech is appropriate. Follows commands well. Neck: supported by Mobile collar Motor: 4/5 through major muscle groups of both upper and lower extremities Respiratory: clear b/l Heart: NSR Ciarra's: mildly positive bilateral No ankle clonus Plantars response neutral (Myrtle Trotter) Medications Current Medications Current Medications Medications (Trade) Dose Ordered Sig/Jin Route PRN Reason Start Time Stop Time Status Last Admin Dose Admin Acetaminophen (Tylenol) 650 mg Q6H PRN PO PAIN 1-10 AND/OR FEVER >101F 11/18/16 21:45 EZETIMIBE (Zetia) 10 mg HS PO 11/19/16 21:00 Ferrous Sulfate (Ferrous Sulfate) 325 mg BID PO 11/19/16 09:00 11/19/16 10:41 Folic Acid (Folate) 5 mg DAILY PO 11/19/16 09:00 Gabapentin (Neurontin) 300 mg HS PO 11/19/16 21:00 Levothyroxine Sodium (Synthroid) 50 mcg DAILY@07 PO 11/19/16 07:00 11/19/16 06:43 Magnesium Oxide (Mag-Ox) 400 mg BID PO 11/19/16 09:00 11/19/16 10:41 Multivitamins/ Minerals Therapeutic (Theragran M Tab) 1 tab HS PO 11/19/16 21:00 Nifedipine (Procardia Xl) 90 mg DAILY PO 11/19/16 09:00 11/19/16 10:40 Polyethylene Glycol (Miralax) 17 gm DAILY PO 11/19/16 09:00 11/19/16 10:55 Senna/Docusate Sodium (Kandi-Colace) 2 tab BID PO 11/19/16 09:00 11/19/16 10:41 Tolterodine Tartrate (Detrol La) 4 mg DAILY PO 11/19/16 09:00 11/19/16 10:40 Tramadol HCl (Ultram) 50 mg Q4HR PRN PO BACK PAIN 11/18/16 21:45 11/19/16 10:54 Carvedilol (Coreg) 12.5 mg BID PO 11/19/16 09:00 11/19/16 10:41 Insulin Aspart (NovoLOG INJ) 3 units ACHS SQ BSM 11/19/16 07:00 11/19/16 06:45 Insulin Detemir (Levemir Inj) 12 units HS SQ BSM 11/19/16 21:00 Lisinopril (Prinivil) 40 mg DAILY PO BPM 11/19/16 09:00 11/19/16 10:41 Dextrose (D50w (Vial) Inj) 50 ml UNSCH PRN IV HYPOGLYCEMIA-SEE COMMENTS 11/18/16 21:45 Glucagon 1 mg 1 mg UNSCH PRN OTHER HYPOGLYCEMIA-SEE COMMENTS 11/18/16 21:45 Heparin Sodium/ Dextrose (Heparin-D5W Inj) 250 ml @ 0 mls/hr TITRATE IV 11/19/16 11:00 (Myrtle Trotter) Medical Decision Making MDM Remarks 81 y/o female with cervical stenosis, myelopathy upper extremity DVT- on Xarelto (Myrtle Trotter) Plan Plan Remarks cont hold Xarelto, on heparin bridge - defer mgt to medicine, following anticipate surgery Monday with PT cont supportive care dw daughter in room (Myrtle Trotter) Attending Statement The exam, history, and the medical decision-making described in the above note were completed with the assistance of the mid-level provider. I reviewed and agree with the findings presented. I attest that I had a [id number] encounter with the patient on the same day, and personally performed and documented my assessment and findings in the medical record. (Rojelio Reyes MD) Myrtle Trotter Nov 19, 2016 11:39 Rojelio Reyes MD Nov 22, 2016 19:00
--- NOTE | 2016-11-19 13:06 | PD.CONS ---
HPI Service [facility] Consult Requested By Dr. Eddy Reason for Consult Recurrent cervical myelopathy, patient with DVT needing heparin bridge. Primary Care Physician Deana Retana M.D. Diagnoses: History of Present Illness Written by Anastasia Mancia, acting as scribe for Dr. Jha on 11/19/16 at 13:05. This is an 81-year-old female patient with past medical history which includes diabetes mellitus, hypertension, hyperlipidemia, coronary artery disease status post coronary artery bypass graft and DVT upper extremity. Patient previously admitted to [facility] through the emergency room July 2016 with a 7 month history of progressive upper extremity and lower extremity weakness and sensory loss with inability to ambulate. Patient underwent anterior and posterior decompression: 08/08/16 C4 5 and C6 7 anterior cervical discectomy, resection herniated nucleus pulposus and posterior osteophytic disc complexes-microtechnique. C4 5 and C6 7 anterior interbody fusion with composite allograft bone. C4 5 and C6 7 anterior cervical instrumentation 08/15/16 - bilateral C4, C5, C6, C7 decompressive semi-laminectomy, medial facetectomy for dorsal spinal cord decompression with bilateral C4-C7 posterior instrumentation, bilateral C7 pedicle screw fixation and bilateral C4-C7 posterior fusion with local autograft and allograft bone Patient was then in rehabilitation facility where she had been doing well and even starting to ambulate with a walker. Patient reports that the upper extremity numbness and weakness started to get worse approximately 3 days ago. Patient was then sent to the emergency room for further evaluation with MRI scan which reveals new areas of upper cervical stenosis with cord compression and question of infection. Also ultrasound of left upper extremity reveals DVT of axillary and brachial veins. Patient this time is currently resting in bed with collar in place. Patient denies shortness of breath chest pain nausea vomiting diarrhea constipation fevers or chills. Review of Systems Except as stated in HPI: all other systems reviewed are Neg Past Family Social History Allergies: Coded Allergies: Morphine (Verified Allergy, Severe, Shortness of Breath, 11/11/16) Neosporin (Verified Allergy, Severe, Shortness of Breath, 11/11/16) Neomycin (Verified Allergy, Unknown, RASHES, 11/18/16) Penicillin (Verified Allergy, Unknown, RASHES, 11/18/16) Promethazine (Verified Allergy, Unknown, UNKNOWN, 11/18/16) Past Medical History Diabetes Hypertension Hypercholesterolemia Coronary artery disease CHF Upper extremity venous thrombosis Past Surgical History Coronary artery bypass Hysterectomy Lumbar spine surgery Cervical spine surgery Reported Medications Nifedipine ER (Nifedipine) 90 Mg Tab 90 Mg PO DAILY Senna Plus 8.6-50 mg (Sennosides-Docusate Sodium) 1 Tab Tab 2 Tab PO BID Polyethylene Glycol 3350 Powder (Polyethylene Glycol) 17 Gm Pow 17 Gm PO DAILY Tylenol (Acetaminophen) 325 Mg Tab 650 Mg PO Q6H PRN Novolog Flexpen Inj (Insulin Aspart) 300 Unit/3 Ml Pen SQ ACHS Sliding Scale: 150-200=2 units,201-250=4 units,251-300=6 units,301-350=8 units,351-400=10 units, 401+=10 units & call MD Novolog Flexpen Inj (Insulin Aspart) 300 Unit/3 Ml Pen 3 Units SQ ACHS Administer as baseline with SS Xarelto (Rivaroxaban) 10 Mg Tab 10 Mg PO DAILY Thera-M (Multiple Vitamins W/ Minerals) 1 Tab 1 Tab PO HS Lantus Solostar Pen Inj (Insulin Glargine) 300 Unit/3 Ml Pen 12 Units SQ HS Folic Acid 800 Mcg Cap 4.8 Mg PO DAILY Magox 400 (Magnesium Oxide) 400 Mg Tablet 400 Mg PO BID Ferrousul (Ferrous Sulfate) 325 Mg Tab 325 Mg PO BID Coreg Cr 24 HR (Carvedilol) 40 Mg Cap 40 Mg PO DAILY Zetia (Ezetimibe) 10 Mg Tab 10 Mg PO HS Tramadol Hydrochloride (Tramadol HCl) 50 Mg Tab 50 Mg PO Q4HR PRN Lisinopril 40 Mg Tab 40 Mg PO DAILY Levothyroxine (Levothyroxine Sodium) 50 Mcg Tab 50 Mcg PO DAILY Gabapentin 300 Mg Cap 300 Mg PO HS Detrol LA (Tolterodine Tartrate) 4 Mg Cap 4 Mg PO DAILY Crestor (Rosuvastatin Calcium) 10 Mg Tab 10 Mg PO HS Alendronate (Alendronate Sodium) 35 Mg Tab 35 Mg PO Q7D Active Ordered Medications Current Medications Medications (Trade) Dose Ordered Sig/Jin Route Start Time Stop Time Status Last Admin (Tylenol) 650 mg Q6H PRN PO 11/18/16 21:45 (Zetia) 10 mg HS PO 11/19/16 21:00 (Ferrous Sulfate) 325 mg BID PO 11/19/16 09:00 11/19/16 10:41 (Folate) 5 mg DAILY PO 11/19/16 09:00 (Neurontin) 300 mg HS PO 11/19/16 21:00 (Synthroid) 50 mcg DAILY@07 PO 11/19/16 07:00 11/19/16 06:43 (Mag-Ox) 400 mg BID PO 11/19/16 09:00 11/19/16 10:41 (Theragran M Tab) 1 tab HS PO 11/19/16 21:00 (Procardia Xl) 90 mg DAILY PO 11/19/16 09:00 11/19/16 10:40 (Miralax) 17 gm DAILY PO 11/19/16 09:00 11/19/16 10:55 (Kandi-Colace) 2 tab BID PO 11/19/16 09:00 11/19/16 10:41 (Detrol La) 4 mg DAILY PO 11/19/16 09:00 11/19/16 10:40 (Ultram) 50 mg Q4HR PRN PO 11/18/16 21:45 11/19/16 10:54 (Coreg) 12.5 mg BID PO 11/19/16 09:00 11/19/16 10:41 (NovoLOG INJ) 3 units ACHS SQ 11/19/16 07:00 11/19/16 06:45 (Levemir Inj) 12 units HS SQ 11/19/16 21:00 (Prinivil) 40 mg DAILY PO 11/19/16 09:00 11/19/16 10:41 (D50w (Vial) Inj) 50 ml UNSCH PRN IV 11/18/16 21:45 Glucagon 1 mg 1 mg UNSCH PRN OTHER 11/18/16 21:45 (Heparin-D5W Inj) 250 ml @ 0 mls/hr TITRATE IV 11/19/16 11:00 Family History Denies family medical history including diabetes mellitus hypertension and CAD or CVA Social History Patient is with no children Presently residing in [facility]p facility No alcohol Quit smoking 20 years ago Physical Exam Vital Signs Vital Signs Date Time Temp Pulse Resp B/P Pulse Ox O2 Delivery O2 Flow Rate FiO2 11/19/16 08:00 97.3 64 20 146/62 98 11/19/16 04:00 97.0 62 17 145/55 100 11/19/16 01:17 97.0 64 17 126/45 98 11/19/16 01:15 97.0 64 17 126/48 98 11/18/16 22:00 60 16 150/64 96 Room Air 11/18/16 18:20 98 Room Air 11/18/16 18:20 98.1 57 20 144/64 98 11/18/16 18:20 56 18 144/64 98 Room Air Physical Exam GENERAL: This is a well-nourished, well-developed patient, in no apparent distress. SKIN: No rashes, ecchymoses or lesions. Cool and dry. HEAD: Atraumatic. Normocephalic. No temporal or scalp tenderness. EYES: Extraocular motions intact. No scleral icterus. No injection or drainage. NECK: C- collar in place CARDIOVASCULAR: Regular rate and rhythm without murmurs, gallops, or rubs. RESPIRATORY: Clear to auscultation. Breath sounds equal bilaterally. No wheezes , rales, or rhonchi. GASTROINTESTINAL: Abdomen soft, non-tender, nondistended. No guarding. MUSCULOSKELETAL: Extremities without clubbing, cyanosis, or edema. No joint tenderness, effusion, or edema noted. No calf tenderness. Negative Homans sign bilaterally. NEUROLOGICAL: Awake and alert. Normal speech. 3/5 bilateral upper and lower extremities. Laboratory Laboratory Tests Test 11/18/16 11/19/16 18:15 07:00 White Blood Count 5.2 5.2 Red Blood Count 3.82 4.01 Hemoglobin 11.2 11.8 Hematocrit 34.2 35.6 Mean Corpuscular Volume 89.5 88.8 Mean Corpuscular Hemoglobin 29.4 29.4 Mean Corpuscular Hemoglobin 32.8 33.1 Concent Red Cell Distribution Width 15.9 15.9 Platelet Count 172 188 Mean Platelet Volume 9.3 9.4 Neutrophils (%) (Auto) 60.0 61.3 Lymphocytes (%) (Auto) 26.5 26.9 Monocytes (%) (Auto) 9.7 7.6 Eosinophils (%) (Auto) 2.7 2.9 Basophils (%) (Auto) 1.1 1.3 Neutrophils # (Auto) 3.1 3.2 Lymphocytes # (Auto) 1.4 1.4 Monocytes # (Auto) 0.5 0.4 Eosinophils # (Auto) 0.1 0.2 Basophils # (Auto) 0.1 0.1 CBC Comment DIFF FINAL DIFF FINAL Differential Comment Prothrombin Time 11.4 Prothromb Time International 1.0 Ratio Activated Partial 38.1 Thromboplast Time Sodium Level 137 141 Potassium Level 4.9 4.6 Chloride Level 101 104 Carbon Dioxide Level 29.0 28.8 Anion Gap 7 8 Blood Urea Nitrogen 36 25 Creatinine 0.81 0.71 Estimat Glomerular Filtration 68 79 Rate Random Glucose 188 122 Calcium Level 8.9 9.0 Total Creatine Kinase 62 Troponin I LESS THAN 0.02 Result Diagram: 11/19/16 0700 11/19/16 0700 Imaging Last Impressions Upper Extremity Ultrasound 11/18/16 1843 Signed Impressions: Service Date/Time: Friday, November 18, 2016 20:25 - CONCLUSION: Positive for deep venous thrombosis in the axillary and brachial veins. Juan Beltre MD Cervical Spine MRI 11/18/16 0000 Signed Impressions: Service Date/Time: Friday, November 18, 2016 19:50 - CONCLUSION: 1. Interval development of central disc protrusions at C2-3 and C3-4 causing impression on the cervical cord and spinal canal stenosis. 2. Prominent soft tissue edema and diffuse enhancement about the surgical site in the posterior soft tissues extending from C3-C7. No definite fluid collections seen. There is signal abnormality with enhancement, however, involving the spinous process of C5 and C6 suggesting possible osteomyelitis. 3. Stable myelomalacia at the C4 level. No abnormal areas of enhancement within the substance of the cervical cord. Juan Beltre MD Assessment and Plan Assessment and Plan This is an 81-year-old female patient with past medical history which includes diabetes mellitus, hypertension, hyperlipidemia, coronary artery disease status post coronary artery bypass graft and DVT upper extremity. S/P C-spine surgery 08/08/2016 and 08/15/2016. Patient now with MRI which reveals new area of upper cervical stenosis with cord compression and question of infection. Patient also has ultrasound left upper extremity which shows DVT of axillary and brachial veins. We've been consulted for assistance with medical management and heparin bridge. Patient has planned surgical intervention on Monday. Cervical stenosis with upper extremity weakness/paresthesia Management per neurosurgery planned surgical intervention Monday DVT left upper arm Xarelto on hold due to planned surgical intervention Monday Will initiate heparin IV Heparin to be placed on hold prior to surgery per neurosurgery recommendations Plan to resume anticoagulation once cleared by neurosurgery postoperatively Hypothyroidism continue home Synthroid 50 mcg by mouth daily dose and check TSH level Diabetes mellitus continue home Levemir 12 units subcutaneous daily at bedtime and preprandial NovoLog 3 units subcutaneous before meals Monitor Accu-Cheks before meals at bedtime with sliding scale insulin coverage Hypertension- stable Continue home medications which include carvedilol ER 40 mg by mouth daily, lisinopril 40 mg by mouth daily and nifedipine 90 mg by mouth daily Hyperlipidemia stable Hold Crestor 10 minutes by mouth daily at bedtime per neurosurgery Continue his area 10 mg by mouth daily at bedtime SCD prophylaxis patient is on heparin drip This note was transcribed by yuri Mancia. I, Dr. Yahir Franks personally performed the history, physical exam, and medical decision making; and confirmed the accuracy of the information in the transcribed note. Authenticated by Dr. Yahir Franks on 11/19/16 at 13:19. Anastasia Mancia Nov 19, 2016 13:06 Yahir Parker MD Nov 19, 2016 13:19
--- NOTE | 2016-11-19 13:33 | EKG ---
Date Performed: 11/18/2016 Time Performed: 18:18:30 PTAGE: 81 years EKG: SUPRAVENTRICULAR BRADYCARDIA ABNORMAL RHYTHM ECG PREVIOUS TRACING : 08/02/2016 15.26 Since previous tracing, no significant change noted DOCTOR: Nubia Partida Interpretating Date/Time 11/19/2016 13:32:46
[2016-11-19 14:41] LABS: HEMATOCRIT 35.3 % (35.0-46.0); MEAN CELL VOLUME 88.3 FL (80.0-100.0); MEAN CORPUSCULAR HEMOGLOBIN 29.3 PG (27.0-34.0); MEAN CORPUSCULAR HGB CONC 33.2 % (32.0-36.0); PLATELET COUNT 196 TH/MM3 (150-450); RED BLOOD COUNT 3.99 MIL/MM3 (4.00-5.30); REVIEW FLAG FINAL; WHITE BLOOD COUNT 5.5 TH/MM3 (4.0-11.0)
[2016-11-19 14:54] LABS: APTT (PATIENT) 31.6 SEC (24.3-30.1); PROTHROMBIN TIME - PATIENT 10.7 SEC (9.8-11.6)
[2016-11-19] MEDS: HEPARIN-D5W 25,000 U/250 ML 250 ML IV SCH (17:46)
[2016-11-19] MEDS: EZETIMIBE 10 MG TAB PO SCH (20:59)
[2016-11-19] MEDS: GABAPENTIN 300 MG CAP PO SCH (20:59)
[2016-11-19] MEDS: MULTIVITAMINS/MINERALS THERAPEUTIC TAB PO SCH (20:59)
[2016-11-19] MEDS: ACETAMINOPHEN 325 MG TAB PO PRN (21:09)
[2016-11-19] MEDS: INSULIN DETEMIR 100 UNITS/ML VIAL SQ SCH (21:14)
[2016-11-20 02:29] LABS: APTT (PATIENT) 176.7 SEC (24.3-30.1)
[2016-11-20 04:10] VITALS: BP 145/57; PULSE 60; RESP 17; TEMP 96.8; O2SAT 97
[2016-11-20 04:44] LABS: APTT (PATIENT) 61.8 SEC (24.3-30.1)
[2016-11-20] MEDS: INSULIN NovoLIN REGULAR SUPPLEMENTAL SCALE SQ SCH ×4 (06:09→20:47)
[2016-11-20] MEDS: LEVOTHYROXINE SODIUM 50 MCG TAB PO SCH (06:10)
[2016-11-20] MEDS: INSULIN ASPART 1,000 UNITS/10 ML VIAL SQ SCH ×3 (06:13→16:00)
[2016-11-20 08:00] VITALS: BP 144/63; PULSE 60; RESP 17; TEMP 96.6; O2SAT 99
[2016-11-20] MEDS: FOLIC ACID 1 MG TAB PO SCH (09:00)
[2016-11-20 11:15] VITALS: BP 138/60; PULSE 65; RESP 17; TEMP 96.8; O2SAT 99
--- NOTE | 2016-11-20 11:39 | HHI.NSPN ---
(Myrtle Trotter) Note Status Status: Progress Note (Myrtle Trotter) Interval History Interval History 81-year-old female previously admitted to [facility] through the emergency room July 2016 with a 7 month history of progressive upper extremity and lower extremity weakness and sensory loss with inability to ambulate. Initial imaging studies revealed severe mid cervical stenosis with significant signal intensity changes within the cord. Patient underwent anterior and posterior decompression as follows: 08/08/16 C4 5 and C6 7 anterior cervical discectomy, resection herniated nucleus pulposus and posterior osteophytic disc complexes-microtechnique. C4 5 and C6 7 anterior interbody fusion with composite allograft bone. C4 5 and C6 7 anterior cervical instrumentation 08/15/16 - bilateral C4, C5, C6, C7 decompressive semi-laminectomy, medial facetectomy for dorsal spinal cord decompression with bilateral C4-C7 posterior instrumentation, bilateral C7 pedicle screw fixation and bilateral C4-C7 posterior fusion with local autograft and allograft bone The patient was seen in the office for follow-up within the past week and a postoperative CT scan revealed good incorporation of the graft and instrumentation. The patient was doing very well at that time was significant improvement in her severe preoperative quadriparesis, starting to ambulate with a walker. Patient residential facility contacted neurosurgery office today indicating increased numbness in the upper extremities today. Patient brought into the emergency room for further evaluation with MRI scan accomplished which reveals new areas of upper cervical stenosis with cord compression and question of infection. 11/19: doing well, stable overnight. no new complaints currently 11/20: says she had a very good night, very happy with her care. no new complaints. awaiting for surgery sukhjinder (Myrtle Trotter) Labs, Micro, & Vital Signs Results Date Time Temp Pulse Resp B/P Pulse Ox O2 Delivery O2 Flow Rate FiO2 11/20/16 08:00 96.6 60 17 144/63 99 11/20/16 04:10 96.8 60 17 145/57 97 11/19/16 23:31 96.7 62 17 129/57 98 11/19/16 19:09 96.7 66 18 132/60 97 11/19/16 16:00 98.0 60 19 103/46 99 11/19/16 12:00 97.2 65 18 158/61 98 11/20/16 07:00 Intake Total 1860 ml Balance 1860 ml Constitutional Vital Signs Date Time Temp Pulse Resp B/P Pulse Ox O2 Delivery O2 Flow Rate FiO2 11/20/16 08:00 96.6 60 17 144/63 99 11/20/16 04:10 96.8 60 17 145/57 97 11/19/16 23:31 96.7 62 17 129/57 98 11/19/16 19:09 96.7 66 18 132/60 97 11/19/16 16:00 98.0 60 19 103/46 99 11/19/16 12:00 97.2 65 18 158/61 98 11/20/16 07:00 Intake Total 1860 ml Balance 1860 ml (Myrtle Trotter) Review of Systems/Exam Exam Awake, alert. Speech is appropriate. Follows commands well. Neck: supported by Cantwell collar Motor: 4/5 through major muscle groups of both upper and lower extremities Respiratory: clear b/l Heart: NSR Ciarra's: mildly positive bilateral No ankle clonus Plantars response neutral (Myrtle Trotter) Medications Current Medications Current Medications Medications (Trade) Dose Ordered Sig/Jin Route PRN Reason Start Time Stop Time Status Last Admin Dose Admin Acetaminophen (Tylenol) 650 mg Q6H PRN PO PAIN 1-10 AND/OR FEVER >101F 11/18/16 21:45 11/19/16 21:09 EZETIMIBE (Zetia) 10 mg HS PO 11/19/16 21:00 11/19/16 20:59 Ferrous Sulfate (Ferrous Sulfate) 325 mg BID PO 11/19/16 09:00 11/19/16 20:59 Folic Acid (Folate) 5 mg DAILY PO 11/19/16 09:00 Gabapentin (Neurontin) 300 mg HS PO 11/19/16 21:00 11/19/16 20:59 Levothyroxine Sodium (Synthroid) 50 mcg DAILY@07 PO 11/19/16 07:00 11/20/16 06:10 Magnesium Oxide (Mag-Ox) 400 mg BID PO 11/19/16 09:00 11/19/16 20:59 Multivitamins/ Minerals Therapeutic (Theragran M Tab) 1 tab HS PO 11/19/16 21:00 11/19/16 20:59 Nifedipine (Procardia Xl) 90 mg DAILY PO 11/19/16 09:00 11/19/16 10:40 Polyethylene Glycol (Miralax) 17 gm DAILY PO 11/19/16 09:00 11/19/16 10:55 Senna/Docusate Sodium (Kandi-Colace) 2 tab BID PO 11/19/16 09:00 11/19/16 20:59 Tolterodine Tartrate (Detrol La) 4 mg DAILY PO 11/19/16 09:00 11/19/16 10:40 Tramadol HCl (Ultram) 50 mg Q4HR PRN PO BACK PAIN 11/18/16 21:45 11/19/16 10:54 Carvedilol (Coreg) 12.5 mg BID PO 11/19/16 09:00 11/19/16 20:59 Insulin Aspart (NovoLOG INJ) 3 units ACHS SQ BSM 11/19/16 07:00 11/20/16 06:13 Insulin Detemir (Levemir Inj) 12 units HS SQ BSM 11/19/16 21:00 11/19/16 21:14 Lisinopril (Prinivil) 40 mg DAILY PO BPM 11/19/16 09:00 11/19/16 10:41 Dextrose (D50w (Vial) Inj) 50 ml UNSCH PRN IV HYPOGLYCEMIA-SEE COMMENTS 11/18/16 21:45 Glucagon 1 mg 1 mg UNSCH PRN OTHER HYPOGLYCEMIA-SEE COMMENTS 11/18/16 21:45 Heparin Sodium/ Dextrose (Heparin-D5W Inj) 250 ml @ 0 mls/hr TITRATE IV 11/19/16 11:00 11/19/16 17:46 (Myrtle Trotter) Medical Decision Making MDM Remarks 81 y/o female with cervical stenosis, myelopathy upper extremity DVT- on Xarelto (Myrtle Trotter) Plan Plan Remarks cont hold Xarelto, on heparin bridge - defer mgt to medicine, following anticipate surgery Monday with cont supportive care Dr. Eddy to return Monday (Myrtle Trotter) Attending Statement The exam, history, and the medical decision-making described in the above note were completed with the assistance of the mid-level provider. I reviewed and agree with the findings presented. I attest that I had a [id number] encounter with the patient on the same day, and personally performed and documented my assessment and findings in the medical record. (Rojelio Reyes MD) Myrtle Trotter Nov 20, 2016 11:39 Rojelio Reyes MD Nov 22, 2016 19:20
[2016-11-20] MEDS: DOCUSATE SODIUM 50 MG/SENNA 8.6 MG TAB PO SCH ×2 (12:14→20:37)
[2016-11-20] MEDS: POLYETHYLENE GLYCOL 17 GM PKG PO SCH (12:14)
[2016-11-20] MEDS: CARVEDILOL 12.5 MG TAB PO SCH ×2 (12:15→20:37)
[2016-11-20] MEDS: FERROUS SULFATE 325 MG (65 MG ELEMENTAL IRON) TAB PO SCH ×2 (12:16→20:37)
[2016-11-20] MEDS: TOLTERODINE TARTRATE 4 MG CAP LA PO SCH (12:16)
[2016-11-20] MEDS: LISINOPRIL 20 MG TAB PO SCH (12:17)
[2016-11-20] MEDS: NIFEdipine 90 MG SUSTAINED RELEASE TAB PO SCH (12:17)
[2016-11-20] MEDS: MAGNESIUM OXIDE 400 MG TAB PO SCH ×2 (12:17→20:37)
[2016-11-20] MEDS: ACETAMINOPHEN 325 MG TAB PO PRN ×2 (13:55→20:37)
[2016-11-20 15:00] VITALS: BP 119/58; PULSE 57; RESP 17; TEMP 97.5; O2SAT 99
[2016-11-20 15:36] LABS: APTT (PATIENT) 78.8 SEC (24.3-30.1)
--- NOTE | 2016-11-20 18:55 | HHI.PR ---
Subjective Remarks denies cp/sob denies melena or hematochezia Objective Vitals Vital Signs Date Time Temp Pulse Resp B/P Pulse Ox O2 Delivery O2 Flow Rate FiO2 11/20/16 15:00 97.5 57 17 119/58 99 11/20/16 11:15 96.8 65 17 138/60 99 11/20/16 08:00 96.6 60 17 144/63 99 11/20/16 04:10 96.8 60 17 145/57 97 11/19/16 23:31 96.7 62 17 129/57 98 11/19/16 19:09 96.7 66 18 132/60 97 I/O 11/19/16 11/19/16 11/19/16 11/20/16 11/20/16 11/20/16 07:00 15:00 23:00 07:00 15:00 23:00 Intake Total 480 ml 900 ml 480 ml 480 ml 720 ml Balance 480 ml 900 ml 480 ml 480 ml 720 ml Intake Oral 480 ml 900 ml 480 ml 480 ml 720 ml # Voids 4 5 4 4 4 # Bowel Movements 0 0 0 2 Result Diagram: 11/19/16 1421 11/19/16 0700 Imaging Last Impressions Upper Extremity Ultrasound 11/18/16 1843 Signed Impressions: Service Date/Time: Friday, November 18, 2016 20:25 - CONCLUSION: Positive for deep venous thrombosis in the axillary and brachial veins. Juan Beltre MD Cervical Spine MRI 11/18/16 0000 Signed Impressions: Service Date/Time: Friday, November 18, 2016 19:50 - CONCLUSION: 1. Interval development of central disc protrusions at C2-3 and C3-4 causing impression on the cervical cord and spinal canal stenosis. 2. Prominent soft tissue edema and diffuse enhancement about the surgical site in the posterior soft tissues extending from C3-C7. No definite fluid collections seen. There is signal abnormality with enhancement, however, involving the spinous process of C5 and C6 suggesting possible osteomyelitis. 3. Stable myelomalacia at the C4 level. No abnormal areas of enhancement within the substance of the cervical cord. Juan Beltre MD Objective Remarks GENERAL: This is a well-nourished, well-developed patient, in no apparent distress. SKIN: No rashes, ecchymoses or lesions. Cool and dry. HEAD: Atraumatic. Normocephalic. No temporal or scalp tenderness. EYES: Extraocular motions intact. No scleral icterus. No injection or drainage. NECK: C- collar in place CARDIOVASCULAR: Regular rate and rhythm without murmurs, gallops, or rubs. RESPIRATORY: Clear to auscultation. Breath sounds equal bilaterally. No wheezes , rales, or rhonchi. GASTROINTESTINAL: Abdomen soft, non-tender, nondistended. No guarding. MUSCULOSKELETAL: Extremities without clubbing, cyanosis, or edema. No joint tenderness, effusion, or edema noted. No calf tenderness. Negative Homans sign bilaterally. NEUROLOGICAL: Awake and alert. Normal speech. 3/5 bilateral upper and lower extremities. Medications and IVs Current Medications Medications (Trade) Dose Ordered Sig/Jin Route Start Time Stop Time Status Last Admin (Tylenol) 650 mg Q6H PRN PO 11/18/16 21:45 11/20/16 20:37 (Zetia) 10 mg HS PO 11/19/16 21:00 11/20/16 20:37 (Ferrous Sulfate) 325 mg BID PO 11/19/16 09:00 11/20/16 20:37 (Folate) 5 mg DAILY PO 11/19/16 09:00 11/20/16 09:00 (Neurontin) 300 mg HS PO 11/19/16 21:00 11/20/16 20:37 (Synthroid) 50 mcg DAILY@07 PO 11/19/16 07:00 11/20/16 06:10 (Mag-Ox) 400 mg BID PO 11/19/16 09:00 11/20/16 20:37 (Theragran M Tab) 1 tab HS PO 11/19/16 21:00 11/20/16 20:37 (Procardia Xl) 90 mg DAILY PO 11/19/16 09:00 11/20/16 12:17 (Miralax) 17 gm DAILY PO 11/19/16 09:00 11/20/16 12:14 (Kandi-Colace) 2 tab BID PO 11/19/16 09:00 11/20/16 12:14 (Detrol La) 4 mg DAILY PO 11/19/16 09:00 11/20/16 12:16 (Ultram) 50 mg Q4HR PRN PO 11/18/16 21:45 11/19/16 10:54 (Coreg) 12.5 mg BID PO 11/19/16 09:00 11/20/16 20:37 (NovoLOG INJ) 3 units ACHS SQ 11/19/16 07:00 Hold 11/20/16 06:13 (Levemir Inj) 12 units HS SQ 11/19/16 21:00 11/20/16 20:46 (Prinivil) 40 mg DAILY PO 11/19/16 09:00 11/20/16 12:17 (D50w (Vial) Inj) 50 ml UNSCH PRN IV 11/18/16 21:45 Glucagon 1 mg 1 mg UNSCH PRN OTHER 11/18/16 21:45 (Heparin-D5W Inj) 250 ml @ 0 mls/hr TITRATE IV 11/19/16 11:00 11/20/16 23:08 Urinary Catheter: No A/P Assessment and Plan This is an 81-year-old female patient with past medical history which includes diabetes mellitus, hypertension, hyperlipidemia, coronary artery disease status post coronary artery bypass graft and DVT upper extremity. S/P C-spine surgery 08/08/2016 and 08/15/2016. Patient now with MRI which reveals new area of upper cervical stenosis with cord compression and question of infection. Patient also has ultrasound left upper extremity which shows DVT of axillary and brachial veins. We've been consulted for assistance with medical management and heparin bridge. Patient has planned surgical intervention on Monday. Cervical stenosis with upper extremity weakness/paresthesia Management per neurosurgery planned surgical intervention Monday DVT left upper arm Xarelto on hold due to planned surgical intervention Monday Heparin to be placed on hold prior to surgery per neurosurgery recommendations Plan to resume anticoagulation once cleared by neurosurgery postoperatively Continue heparin bridge prior to surgery. Hypothyroidism continue home Synthroid 50 mcg by mouth daily dose and check TSH level Diabetes mellitus continue home Levemir 12 units subcutaneous daily at bedtime and preprandial NovoLog 3 units subcutaneous before meals Monitor Accu-Cheks before meals at bedtime with sliding scale insulin coverage Hypertension- stable Continue home medications which include carvedilol ER 40 mg by mouth daily, lisinopril 40 mg by mouth daily and nifedipine 90 mg by mouth daily Hyperlipidemia stable Hold Crestor 10 minutes by mouth daily at bedtime per neurosurgery Continue his area 10 mg by mouth daily at bedtime SCD prophylaxis patient is on heparin drip Abhijeet TeeYahir MD Nov 20, 2016 18:55
[2016-11-20 20:05] VITALS: BP 132/59; PULSE 63; RESP 17; TEMP 97.6; O2SAT 99
[2016-11-20] MEDS: EZETIMIBE 10 MG TAB PO SCH (20:37)
[2016-11-20] MEDS: GABAPENTIN 300 MG CAP PO SCH (20:37)
[2016-11-20] MEDS: MULTIVITAMINS/MINERALS THERAPEUTIC TAB PO SCH (20:37)
[2016-11-20] MEDS: INSULIN DETEMIR 100 UNITS/ML VIAL SQ SCH (20:46)
[2016-11-20 23:04] LABS: APTT (PATIENT) 45.3 SEC (24.3-30.1)
[2016-11-20] MEDS: HEPARIN-D5W 25,000 U/250 ML 250 ML IV SCH (23:08)
[2016-11-21] VITALS (7 sets, daily range): BP systolic 113–144; BP diastolic 54–64; PULSE 54–90; RESP 16–18; TEMP 96.5–98.2; O2SAT 95–99
[2016-11-21] MEDS: LEVOTHYROXINE SODIUM 50 MCG TAB PO SCH (06:26)
[2016-11-21] MEDS: INSULIN NovoLIN REGULAR SUPPLEMENTAL SCALE SQ SCH ×4 (06:27→21:00)
[2016-11-21 06:50] LABS: APTT (PATIENT) 39.3 SEC (24.3-30.1)
[2016-11-21] MEDS: LISINOPRIL 20 MG TAB PO SCH (08:33)
[2016-11-21] MEDS: FOLIC ACID 1 MG TAB PO SCH (08:33)
[2016-11-21] MEDS: POLYETHYLENE GLYCOL 17 GM PKG PO SCH (08:33)
[2016-11-21] MEDS: NIFEdipine 90 MG SUSTAINED RELEASE TAB PO SCH (08:34)
[2016-11-21] MEDS: FERROUS SULFATE 325 MG (65 MG ELEMENTAL IRON) TAB PO SCH ×2 (08:34→20:47)
[2016-11-21] MEDS: TOLTERODINE TARTRATE 4 MG CAP LA PO SCH (08:35)
[2016-11-21] MEDS: DOCUSATE SODIUM 50 MG/SENNA 8.6 MG TAB PO SCH ×2 (08:35→20:47)
[2016-11-21] MEDS: MAGNESIUM OXIDE 400 MG TAB PO SCH ×2 (08:35→20:47)
[2016-11-21] MEDS: CARVEDILOL 12.5 MG TAB PO SCH ×2 (08:35→20:47)
[2016-11-21] MEDS: ACETAMINOPHEN 325 MG TAB PO PRN ×2 (11:13→20:47)
--- NOTE | 2016-11-21 12:26 | HHI.NSPN ---
(Jeff Talbert) History Chief Complaint: Shoulder pain, bilateral (Jeff Talbert) Interval History 11/18: 81-year-old female previously admitted to [facility] through the emergency room July 2016 with a 7 month history of progressive upper extremity and lower extremity weakness and sensory loss with inability to ambulate. Initial imaging studies revealed severe mid cervical stenosis with significant signal intensity changes within the cord. Patient underwent anterior and posterior decompression as follows: 08/08/16 C4 5 and C6 7 anterior cervical discectomy, resection herniated nucleus pulposus and posterior osteophytic disc complexes-microtechnique. C4 5 and C6 7 anterior interbody fusion with composite allograft bone. C4 5 and C6 7 anterior cervical instrumentation 08/15/16 - bilateral C4, C5, C6, C7 decompressive semi-laminectomy, medial facetectomy for dorsal spinal cord decompression with bilateral C4-C7 posterior instrumentation, bilateral C7 pedicle screw fixation and bilateral C4-C7 posterior fusion with local autograft and allograft bone The patient was seen in the office for follow-up within the past week and a postoperative CT scan revealed good incorporation of the graft and instrumentation. The patient was doing very well at that time was significant improvement in her severe preoperative quadriparesis, starting to ambulate with a walker. Patient [facility] facility contacted neurosurgery office today indicating increased numbness in the upper extremities today. Patient brought into the emergency room for further evaluation with MRI scan accomplished which reveals new areas of upper cervical stenosis with cord compression and question of infection. 11/19: doing well, stable overnight. no new complaints currently 11/20: says she had a very good night, very happy with her care. no new complaints. awaiting for surgery tu11/21: The patient is doing well when seen this afternoon. She complained of neck pain then said it was to both shoulders. She had no other complaints. She did say that her legs buckle under her. (Jeff Talbert) System Review Comments Constitutional: Patient denies any fever or chills. HEENT: Patient denies any visual or hearing problems. Respiratory: Patient denies any shortness of breath or productive cough. Cardiovascular: Patient denies any chest pain, palpitations or irregular heartbeat. Gastrointestinal: Patient denies any abdominal pain, nausea or vomiting. Musculoskeletal: Patient complains of neck/shoulder pain and that her legs buckle. Neurologic: Patient complains of weakness and numbness to the extremities and abnormal gait. She denies any headache or dizziness. (Jeff Talbert) Exam Results Vital Signs Date Time Temp Pulse Resp B/P Pulse Ox O2 Delivery O2 Flow Rate FiO2 11/21/16 11:38 98.0 60 18 113/58 96 11/18/16 22:00 Room Air Intake and Output 11/20/16 11/20/16 11/20/16 07:59 15:59 23:59 Intake Total 480 ml 720 ml 240 ml Balance 480 ml 720 ml 240 ml (Jeff Talbert) Physical Examination General: Patient is awake & alert sitting in a cardiac chair, her affect seems normal, no apparent distress. HEENT: Normocephalic, atraumatic. Neck: In [place] J cervical collar, midline cervical spine NTTP, no JVD, trachea midline. Respiratory: CTAB w/o W/R/R, equal excursion, nonlaboured, on RA. Cardiovascular: S1S2 w/RRR w/o M/G/R, radial & pedal pulses 2+ bilaterally, cap refill < 2 sec, pedal edema 1+ bilaterally. Gastrointestinal: Abdomen soft, nontender, positive bowel sounds. Skin: Warm, dry & intact, no evident discolouration, rashes, ulcerations or lesions. Musculoskeletal: CUMMINS to varying degree, no deformity or clubbing noted. Neurologic: AAOx3. Speech clear & appropriate. Follows commands w/o difficulty. Sensation diminished to light touch to all extremities UE>LE. Strength 4 to 4+/5 to BUE and 3 to 3+/5 BLE. (Jeff Talbert) Medical Decision Making Impression and Plan Impression: 1. Development of increasing stenosis above previous C4 anterior- posterior cervical decompression site. Now with significant C2 3 and C3 4 stenosis with anterior and posterior compression. Positive increased spinal cord signal intensity at the C3 4 level. Question of infection versus inflammatory tissue at the posterior cervical operative site. No definite abscess or focal fluid collection. No elevation of white count. 2. Hypertension 3. Diabetes 4. Upper extremity DVT-on Xarelto Patient with stable neurological exam. Plan: Hold Xarelto pending surgery for posterior decompression C2-4 with additional stabilization. Anticipate possible surgery on Monday due to anticoagulation. Mobilise patient w/assistance. PT eval & tx. Medical management per Hospitalist/Medicine, to include DVT UE tx. (Jeff Talbert) Attending Statement I have personally seen and examined the patient on 11/21/16. Pertinent documentation and study results have been reviewed by the undersigned. I have personally developed the treatment plan and performed medical decision making. Agree with findings, exam, and treatment plan as noted above. On my examination on 11/21/16, the patient is awake and alert. Continued moderate decreased sensation somewhat diffuse throughout the upper and lower extremities. Motor strength appears stable compared to last week, diminished compared to a couple weeks ago according to the patient, but relatively stable on my examination. Findings were discussed at length again with the patient. Options of conservative treatment versus surgical intervention for the new areas of significant stenosis at the C2 3, C3 4 levels were discussed. Due to the significant change in neurologic status over the past few days, she would like to proceed with further neurosurgical intervention for C3, C4 laminoplasty, possible laminectomy and fusion with posterior instrumentation depending on degree of facet instability and spinal canal compromise on intraoperative assessment. The procedure, risks, possible complications, prognosis fully discussed with the patient. All questions answered. (Sav Eddy MD) Jeff Talbert Nov 21, 2016 12:26 Sav Eddy MD Nov 22, 2016 00:06
[2016-11-21 15:38] LABS: APTT (PATIENT) 48.5 SEC (24.3-30.1)
--- NOTE | 2016-11-21 17:03 | HHI.PR ---
Subjective Remarks patient c/o cough denies fevers/chills c.o neck pain requesting medication for cough Objective Vitals Vital Signs Date Time Temp Pulse Resp B/P Pulse Ox O2 Delivery O2 Flow Rate FiO2 11/21/16 16:00 97.2 65 18 117/58 99 11/21/16 11:38 98.0 60 18 113/58 96 11/21/16 07:26 96.5 55 18 140/62 98 11/21/16 04:10 97.1 54 16 134/57 96 11/21/16 00:10 98.2 60 17 134/54 97 11/20/16 20:05 97.6 63 17 132/59 99 I/O 11/20/16 11/20/16 11/20/16 11/21/16 11/21/16 11/21/16 06:59 14:59 22:59 06:59 14:59 22:59 Intake Total 480 ml 720 ml 240 ml 240 ml 600 ml Balance 480 ml 720 ml 240 ml 240 ml 600 ml Intake Oral 480 ml 720 ml 240 ml 240 ml 600 ml # Voids 4 4 2 2 2 # Bowel Movements 0 2 0 0 1 Result Diagram: 11/19/16 1421 11/19/16 0700 Imaging Last Impressions Upper Extremity Ultrasound 11/18/16 1843 Signed Impressions: Service Date/Time: Friday, November 18, 2016 20:25 - CONCLUSION: Positive for deep venous thrombosis in the axillary and brachial veins. Juan Beltre MD Cervical Spine MRI 11/18/16 0000 Signed Impressions: Service Date/Time: Friday, November 18, 2016 19:50 - CONCLUSION: 1. Interval development of central disc protrusions at C2-3 and C3-4 causing impression on the cervical cord and spinal canal stenosis. 2. Prominent soft tissue edema and diffuse enhancement about the surgical site in the posterior soft tissues extending from C3-C7. No definite fluid collections seen. There is signal abnormality with enhancement, however, involving the spinous process of C5 and C6 suggesting possible osteomyelitis. 3. Stable myelomalacia at the C4 level. No abnormal areas of enhancement within the substance of the cervical cord. Juan Beltre MD Objective Remarks GENERAL: This is a well-nourished, well-developed patient, in no apparent distress. SKIN: No rashes, ecchymoses or lesions. Cool and dry. HEAD: Atraumatic. Normocephalic. No temporal or scalp tenderness. EYES: Extraocular motions intact. No scleral icterus. No injection or drainage. NECK: C- collar in place CARDIOVASCULAR: Regular rate and rhythm without murmurs, gallops, or rubs. RESPIRATORY: Clear to auscultation. Breath sounds equal bilaterally. No wheezes , rales, or rhonchi. GASTROINTESTINAL: Abdomen soft, non-tender, nondistended. No guarding. MUSCULOSKELETAL: Extremities without clubbing, cyanosis, or edema. No joint tenderness, effusion, or edema noted. No calf tenderness. Negative Homans sign bilaterally. NEUROLOGICAL: Awake and alert. Normal speech. 3/5 bilateral upper and lower extremities. Medications and IVs Current Medications Medications (Trade) Dose Ordered Sig/Jin Route Start Time Stop Time Status Last Admin (Tylenol) 650 mg Q6H PRN PO 11/18/16 21:45 11/21/16 11:13 (Zetia) 10 mg HS PO 11/19/16 21:00 11/20/16 20:37 (Ferrous Sulfate) 325 mg BID PO 11/19/16 09:00 11/21/16 08:34 (Folate) 5 mg DAILY PO 11/19/16 09:00 11/21/16 08:33 (Neurontin) 300 mg HS PO 11/19/16 21:00 11/20/16 20:37 (Synthroid) 50 mcg DAILY@07 PO 11/19/16 07:00 11/21/16 06:26 (Mag-Ox) 400 mg BID PO 11/19/16 09:00 11/21/16 08:35 (Theragran M Tab) 1 tab HS PO 11/19/16 21:00 11/20/16 20:37 (Procardia Xl) 90 mg DAILY PO 11/19/16 09:00 11/21/16 08:34 (Miralax) 17 gm DAILY PO 11/19/16 09:00 11/21/16 08:33 (Kandi-Colace) 2 tab BID PO 11/19/16 09:00 11/21/16 08:35 (Detrol La) 4 mg DAILY PO 11/19/16 09:00 11/21/16 08:35 (Ultram) 50 mg Q4HR PRN PO 11/18/16 21:45 11/19/16 10:54 (Coreg) 12.5 mg BID PO 11/19/16 09:00 11/21/16 08:35 (NovoLOG INJ) 3 units ACHS SQ 11/19/16 07:00 Hold 11/20/16 06:13 (Levemir Inj) 12 units HS SQ 11/19/16 21:00 11/20/16 20:46 (Prinivil) 40 mg DAILY PO 11/19/16 09:00 11/21/16 08:33 (D50w (Vial) Inj) 50 ml UNSCH PRN IV 11/18/16 21:45 Glucagon 1 mg 1 mg UNSCH PRN OTHER 11/18/16 21:45 (Heparin-D5W Inj) 250 ml @ 0 mls/hr TITRATE IV 11/19/16 11:00 11/20/16 23:08 A/P Problem List: (1) Cervical spinal stenosis ICD Code: M48.02 Status: Acute (2) Cervical disc disease with myelopathy ICD Code: M50.00 Status: Acute (3) HTN (hypertension) ICD Code: I10 Status: Acute (4) Leg weakness, bilateral ICD Code: R29.898 Status: Acute (5) Left upper extremity deep vein thrombosis ICD Code: I82.622 Status: Acute (6) Cough ICD Code: R05 Status: Acute Plan: Patient afebrile. Will Rx robitussin DM and obtain a CXR. Assessment and Plan This is an 81-year-old female patient with past medical history which includes diabetes mellitus, hypertension, hyperlipidemia, coronary artery disease status post coronary artery bypass graft and DVT upper extremity. S/P C-spine surgery 08/08/2016 and 08/15/2016. Patient now with MRI which reveals new area of upper cervical stenosis with cord compression and question of infection. Patient also has ultrasound left upper extremity which shows DVT of axillary and brachial veins. We've been consulted for assistance with medical management and heparin bridge. Patient has planned surgical intervention on Monday. Cervical stenosis with upper extremity weakness/paresthesia Management per neurosurgery planned surgical intervention Monday DVT left upper arm Xarelto on hold due to planned surgical intervention Monday Heparin to be placed on hold prior to surgery per neurosurgery recommendations Plan to resume anticoagulation once cleared by neurosurgery postoperatively Continue heparin bridge prior to surgery. Hypothyroidism continue home Synthroid 50 mcg by mouth daily dose. Diabetes mellitus continue home Levemir 12 units subcutaneous daily at bedtime and preprandial NovoLog 3 units subcutaneous before meals Monitor Accu-Cheks before meals at bedtime with sliding scale insulin coverage 11/21 Labile blood sugars. Will continue management as above. Hypertension- stable Continue home medications which include carvedilol ER 40 mg by mouth daily, lisinopril 40 mg by mouth daily and nifedipine 90 mg by mouth daily Hyperlipidemia stable Hold Crestor 10 minutes by mouth daily at bedtime per neurosurgery Continue Zetia 10 mg by mouth daily at bedtime SCD prophylaxis patient is on heparin drip Yahir Parker MD Nov 21, 2016 17:03
[2016-11-21] MEDS: guaiFENesin/DEXTROMETHORPHAN 200 MG/20 MG/10 ML CUP PO PRN (18:34)
--- NOTE | 2016-11-21 18:58 | RADRPT ---
EXAM DATE/TIME: 11/21/2016 18:52 [facility] COMPARISON: CHEST SINGLE AP, August 18, 2016, 16:54. INDICATIONS : Cough. MEDICAL HISTORY : None. SURGICAL HISTORY : None. ENCOUNTER: Initial ACUITY: 3 months PAIN SCORE: 0/10 LOCATION: Bilateral chest FINDINGS: Postoperative median sternotomy. Heart size mildly enlarged. Minimal basal atelectasis. Previous fusi on cervical spine. No pleural effusion. No pneumothorax. CONCLUSION: 1. Postoperative median sternotomy with CABG. Minimal basal atelectasis or scarring. Compa Desir MD on November 21, 2016 at 18:55 Board Certified Radiologist. This report was verified electronically.
[2016-11-21] MEDS: GABAPENTIN 300 MG CAP PO SCH (20:47)
[2016-11-21] MEDS: MULTIVITAMINS/MINERALS THERAPEUTIC TAB PO SCH (20:47)
[2016-11-21] MEDS: EZETIMIBE 10 MG TAB PO SCH (20:47)
[2016-11-21] MEDS: INSULIN DETEMIR 100 UNITS/ML VIAL SQ SCH (20:59)
[2016-11-21 22:09] LABS: APTT (PATIENT) 43.6 SEC (24.3-30.1)
[2016-11-21] MEDS ORDERED: METOPROLOL TARTRATE 25 MG TAB PO PRN (22:15)
[2016-11-21] MEDS ORDERED: POVIDONE IODINE 5% (ANTISEPSIS KIT) 4 APPLICATIONS EACH NARE PRN (22:15)
[2016-11-21] MEDS ORDERED: SODIUM CHLORID 0.9% 500 ML IV PRN (22:15)
[2016-11-21] MEDS ORDERED: CHLORHEXIDINE GLUCONATE 2 % 1 PACK (2 CLOTHS) TOPICAL PRN (22:15)
[2016-11-21] MEDS ORDERED: LACTATED RINGER'S 1000 ML IV PRN (22:15)
[2016-11-21] MEDS ORDERED: HEPARIN-D5W 25,000 U/250 ML 250 ML IV SCH (22:45)
[2016-11-22 03:30] VITALS: BP 170/70; PULSE 60; RESP 17; TEMP 96.9; O2SAT 98
[2016-11-22] MEDS: LEVOTHYROXINE SODIUM 50 MCG TAB PO SCH (06:10)
[2016-11-22] MEDS: INSULIN NovoLIN REGULAR SUPPLEMENTAL SCALE SQ SCH ×4 (06:12→21:00)
[2016-11-22 08:00] VITALS: BP 145/58; PULSE 54; RESP 18; TEMP 96.9; O2SAT 98
[2016-11-22] MEDS: FOLIC ACID 1 MG TAB PO SCH (08:06)
[2016-11-22] MEDS: NIFEdipine 90 MG SUSTAINED RELEASE TAB PO SCH (08:06)
[2016-11-22] MEDS: MAGNESIUM OXIDE 400 MG TAB PO SCH ×2 (08:07→21:35)
[2016-11-22] MEDS: CARVEDILOL 12.5 MG TAB PO SCH ×2 (08:07→21:35)
[2016-11-22] MEDS: TOLTERODINE TARTRATE 4 MG CAP LA PO SCH (08:07)
[2016-11-22] MEDS: DOCUSATE SODIUM 50 MG/SENNA 8.6 MG TAB PO SCH ×2 (08:07→21:34)
[2016-11-22] MEDS: LISINOPRIL 20 MG TAB PO SCH (08:07)
[2016-11-22] MEDS: FERROUS SULFATE 325 MG (65 MG ELEMENTAL IRON) TAB PO SCH ×2 (08:07→21:35)
[2016-11-22] MEDS: POLYETHYLENE GLYCOL 17 GM PKG PO SCH (08:08)
[2016-11-22] MEDS: guaiFENesin/DEXTROMETHORPHAN 200 MG/20 MG/10 ML CUP PO PRN (08:11)
[2016-11-22 08:58] LABS: APTT (PATIENT) 50.4 SEC (24.3-30.1)
[2016-11-22 09:09] LABS: HEMATOCRIT 35.3 % (35.0-46.0); MEAN CELL VOLUME 89.4 FL (80.0-100.0); MEAN CORPUSCULAR HEMOGLOBIN 29.5 PG (27.0-34.0); PLATELET COUNT 184 TH/MM3 (150-450); RED BLOOD COUNT 3.95 MIL/MM3 (4.00-5.30); RED CELL DISTRIBUTION WIDTH 16.2 % (11.6-17.2); REVIEW FLAG FINAL; WHITE BLOOD COUNT 3.8 TH/MM3 (4.0-11.0)
[2016-11-22] MEDS ORDERED: GENTAMICIN SULFATE 80 MG/2 ML VIAL ONE (10:55)
[2016-11-22] MEDS ORDERED: THROMBIN (TOPICAL) 5,000 UNIT VIAL ONE (10:55)
[2016-11-22] MEDS ORDERED: GELFOAM SIZE 100 ONE (10:55)
[2016-11-22] MEDS ORDERED: LIDOCAINE 1%/EPINEPHrine 1:100,000 SOLN 20 ML VIAL ONE ×2 (10:56)
[2016-11-22] MEDS ORDERED: FAMOTIDINE 20 MG/2 ML VIAL ONE (11:47)
[2016-11-22] MEDS ORDERED: PHENYLEPH/NS 1000 MCG/10 ML SYR IV ONE (12:00)
[2016-11-22] MEDS ORDERED: ONDANSETRON HCL 4 MG/2 ML VIAL IV PUSH ONE (12:00)
[2016-11-22] MEDS ORDERED: ePHEDrine/NS 25 MG/5 ML SYR IV ONE (12:00)
[2016-11-22] MEDS ORDERED: NORMOSOL R INJ 2,000 ML IV ONE (12:00)
[2016-11-22] MEDS ORDERED: PROPOFOL 200 MG/20 ML AMP IV ONE (12:00)
[2016-11-22] MEDS ORDERED: CLINDAMYCIN PHOS 600 MG/4 ML VIAL ONE (12:29)
[2016-11-22] MEDS ORDERED: SODIUM CHLORIDE 0.9% INJ 100 ML ONE (12:30)
[2016-11-22] MEDS ORDERED: VANCOMYCIN HCL 1000 MG VIAL ONE (12:54)
[2016-11-22 13:59] LABS: BACTERIA, URINE MANY /hpf; BLOOD, URINE SMALL (NEG); COMMENT (UR) CATH-CULTURE IND; CULTURE IF INDICATED CATH CULTURE IND; GLUCOSE,URINE NEG (NEG); KETONE, URINE NEG (NEG); NITRITE,URINE NEG (NEG); PH, URINE 7.5 (5.0-8.5); SQUAMOUS EPITHELIAL CELL URINE 5 /hpf (0-5); URINE COLOR YELLOW (YELLW/STRAW)
[2016-11-22] MEDS ORDERED: DO NOT ADM ANY ANTICOAGULANT DRUGS PRN (17:57)
[2016-11-22] MEDS ORDERED: fentaNYL CITRATE 250 MCG/5 ML AMP ONE (18:20)
[2016-11-22] MEDS ORDERED: MIDAZOLAM HCL 2 MG/2 ML VIAL ONE (18:20)
--- NOTE | 2016-11-22 19:04 | PD.OP ---
Operative Report Date of Surgery: Nov 22, 2016 Preoperative Diagnosis: (1) Cervical spinal stenosis (2) Cervical myelopathy C2 3 and C3 4 stenosis with spinal cord compression, following previous C4-C7 anterior and posterior decompression and fusion. Cervical myelopathy Postoperative Diagnosis: (1) Cervical spinal stenosis (2) Cervical myelopathy C2 3 and C3 4 stenosis with spinal cord compression, following previous C4-C7 anterior and posterior decompression and fusion. Cervical myelopathy Procedure: 1. C3 laminoplasty, titanium plate, composite allograft bone 2. Bilateral inferior C2 and superior C4 decompressive semi-laminectomy 3. Preparation of allograft bone for laminoplasty bone graft. Surgeon: Sav Eddy Bin Worker(s): Lesia Jimenes Operation and Findings: Findings: Significant hypertrophy of the ligamentum flavum at the C2 3, C3 4 levels with significant dorsal cord compression. The patient was brought into the operating room and general endotracheal anesthesia induced without difficulty. Lines were established by anesthesia Knee high sequential compression devices were placed Appropriate timeout procedure was performed with all personnel present and in agreement The Ber[place]owitz 3 point fixation device was placed. The patient was in a cervical collar for positioning Leads for intraoperative neuro monitoring were placed in a baseline study obtained The patient was turned into prone position on the 3080 table on the Ttii frame with the undersigned maintaining control of the head and neck. The head and neck were secured to the operating room table with the Berkowitz adapter with the neck slightly flexed with 3-4 fingerbreadths between the chin and chest. The neck position was checked with intraoperative C-arm and felt to be satisfactory. The cervical collar was removed. All extremities were appropriately padded. The back of the head and neck were shaved with clippers and sterilely prepped and draped. 1% Xylocaine with epinephrine was used for local infiltration over the incision site was made in the midline posterior neck and carried sharply down to the spinous processes of . The microscope was used as needed during the decompression and graft and plate placement portion of the procedure.. The Hines elevator was used to expose the junction of the lamina and facet at the C2, C3, and C4 levels. The intraspinous ligament and supraspinous ligament was left intact. Muscle attachments were left intact at the C2 spinous process. On the right side, the TPS drill with the M8 gregg was used to incise a trough in the dorsal cortical bone at the C3 level at the junction of the lamina and medial facet. On the left side the posterior muscle attachments and fascia were incised with the Bovie and elevated away from the lamina and facet and spinous processes at the C3-C6 levels On the left side. The TPS drill with the M8 gregg was used to drill a 10 trough through both the dorsal and ventral cortical bone at the junction of the lamina and facet. A thin remaining shell of bone at the ventral lamina was removed with the 1 and 2 mm Kerrison rongeur. The lamina pool manager was then used to elevate the left lamina away from the facet , creating a partial fracture through the lamina on the right side. Next a piece of properly prepared the VG2 composite allograft was cut to the appropriate dimensions as measured by the laminoplasty trials at the C3 level. Prior to placement of the laminoplasty graft and plate, the inferior ventral C2 and superior ventral C4 lamina were removed with the TPS drill with the M8 and 4 mm shonna burs, and the Kerrison rongeur to further decompress the dura at these levels. The retained bone shavings and cancellus bone pieces obtained from the semi- hemilaminectomy were then placed between the elevated laminar edge and decorticated facet at the left C3 level, as well as in the trough created at the right C3 lamina-facet junction. The Synthes titanium laminoplasty plate was then bent to the proper configuration and secured to the left C3 lamina, lateral mass, and allograft bone graft using the 6 mm screws.. The entire construct was checked with intraoperative C-arm and also visualized under the microscope. The thin ligament dissector and blunt hook were used to carefully probe beneath the elevated lamina to ensure adequate decompression of the thecal sac. Care was taken to make sure that the edge of the lamina on the right side was not depressed into the spinal canal. The region was well irrigated with antibiotic irrigation. Bleeding was carefully controlled with bipolar forceps A 10 German drain was left at the operative site and brought out through an incision in the upper thoracic region and secured to the skin with nylon suture The closure was performed with 0 Vicryl interrupted for the deep and superficial fascia with 3-0 Vicryl interrupted subcutaneous closure and 4-0 Vicryl subcutaneous closure. A dressing of sterile Mastisol and Steri-Strips and a Primapore dressing was placed. The patient was placed back in a cervical collar and released from the [place] adapter and turned back into supine position on the recovery room bed. The [place] 3 point fixation device was then removed. The patient was taken to recovery room in stable condition All counts were correct at the end of the case. Estimated blood loss was 600 cc A culture of serous fluid within the wound was sent to microbiology. Neural monitoring remained stable during the procedure Sav Eddy MD Nov 22, 2016 19:04
--- NOTE | 2016-11-22 19:04 | HHI.PR ---
Addendum to Inpatient Note Addendum Reason: Additional Documentation Additional Information Attempted to see patient earlier today at 5:30 PM. However patient still in OR. We'll follow-up tomorrow. Heparin drip should be continued as soon as cleared by neurosurgery. Yahir Parker MD Nov 22, 2016 19:04
[2016-11-22 19:24] LABS: AUTOMATED NEUTROPHIL # 2.3 TH/MM3 (1.8-7.7); BASOPHIL % 1.2 % (0.0-2.0); EOSINOPHIL # 0.1 TH/MM3 (0-0.4); EOSINOPHIL % 2.8 % (0.0-4.0); HEMATOCRIT 29.4 % (35.0-46.0); HEMO FLAGS DIFF FINAL; LYMPH % 25.2 % (9.0-44.0); LYMPHOCYTE # 0.9 TH/MM3 (1.0-4.8); MEAN CELL VOLUME 88.8 FL (80.0-100.0); MEAN CORPUSCULAR HEMOGLOBIN 29.3 PG (27.0-34.0); MONO % 9.7 % (0.0-8.0); NEUT % 61.1 % (16.0-70.0); PLATELET COUNT 168 TH/MM3 (150-450); RED BLOOD COUNT 3.31 MIL/MM3 (4.00-5.30); RED CELL DISTRIBUTION WIDTH 16.3 % (11.6-17.2); WHITE BLOOD COUNT 3.7 TH/MM3 (4.0-11.0)
[2016-11-22 19:44] LABS: BICARBONATE 26.5 MEQ/L (21.0-32.0)
[2016-11-22 20:36] VITALS: BP 148/62; PULSE 66; RESP 17; TEMP 96.4; O2SAT 94
[2016-11-22] MEDS: INSULIN DETEMIR 100 UNITS/ML VIAL SQ SCH (21:00)
[2016-11-22] MEDS: GABAPENTIN 300 MG CAP PO SCH (21:34)
[2016-11-22] MEDS: traMADol HCL 50 MG TAB PO PRN (21:34)
[2016-11-22] MEDS: EZETIMIBE 10 MG TAB PO SCH (21:35)
[2016-11-22] MEDS: MULTIVITAMINS/MINERALS THERAPEUTIC TAB PO SCH (21:35)
[2016-11-23] VITALS (8 sets, daily range): BP systolic 113–139; BP diastolic 45–67; PULSE 60–72; RESP 17–18; TEMP 97.1–98.1; O2SAT 96–100
[2016-11-23] MEDS: traMADol HCL 50 MG TAB PO PRN ×4 (02:09→20:51)
[2016-11-23] MEDS: LEVOTHYROXINE SODIUM 50 MCG TAB PO SCH (05:59)
[2016-11-23] MEDS: ACETAMINOPHEN 325 MG TAB PO PRN ×2 (06:00→12:47)
[2016-11-23] MEDS: INSULIN NovoLIN REGULAR SUPPLEMENTAL SCALE SQ SCH ×4 (06:12→20:53)
[2016-11-23] MEDS: FREE WATER PO SCH ×5 (06:50→20:53)
[2016-11-23 08:29] LABS: AUTOMATED NEUTROPHIL # 4.2 TH/MM3 (1.8-7.7); BASOPHIL # 0.1 TH/MM3 (0-0.2); BASOPHIL % 0.9 % (0.0-2.0); EOSINOPHIL # 0.1 TH/MM3 (0-0.4); EOSINOPHIL % 1.7 % (0.0-4.0); HEMATOCRIT 31.2 % (35.0-46.0); HEMO FLAGS DIFF FINAL; LYMPH % 18.8 % (9.0-44.0); LYMPHOCYTE # 1.1 TH/MM3 (1.0-4.8); MEAN CELL VOLUME 89.9 FL (80.0-100.0); MEAN CORPUSCULAR HEMOGLOBIN 29.6 PG (27.0-34.0); MEAN CORPUSCULAR HGB CONC 32.9 % (32.0-36.0); MONO % 8.3 % (0.0-8.0); NEUT % 70.3 % (16.0-70.0); PLATELET COUNT 139 TH/MM3 (150-450); RED BLOOD COUNT 3.47 MIL/MM3 (4.00-5.30); RED CELL DISTRIBUTION WIDTH 16.3 % (11.6-17.2)
[2016-11-23 08:56] LABS: BICARBONATE 26.5 MEQ/L (21.0-32.0)
[2016-11-23] MEDS: NIFEdipine 90 MG SUSTAINED RELEASE TAB PO SCH (09:00)
[2016-11-23 09:07] LABS: POTASSIUM 4.7 MEQ/L (3.5-5.1)
[2016-11-23] MEDS: FERROUS SULFATE 325 MG (65 MG ELEMENTAL IRON) TAB PO SCH ×2 (09:54→20:52)
[2016-11-23] MEDS: MAGNESIUM OXIDE 400 MG TAB PO SCH ×2 (09:54→20:52)
[2016-11-23] MEDS: DOCUSATE SODIUM 50 MG/SENNA 8.6 MG TAB PO SCH ×2 (09:54→20:51)
[2016-11-23] MEDS: CARVEDILOL 12.5 MG TAB PO SCH ×2 (09:54→20:52)
[2016-11-23] MEDS: TOLTERODINE TARTRATE 4 MG CAP LA PO SCH (09:54)
[2016-11-23] MEDS: LISINOPRIL 20 MG TAB PO SCH (09:54)
[2016-11-23] MEDS: POLYETHYLENE GLYCOL 17 GM PKG PO SCH (09:55)
[2016-11-23] MEDS: FOLIC ACID 1 MG TAB PO SCH (09:55)
--- NOTE | 2016-11-23 10:27 | HHI.NSPN ---
(Jeff TalbertNegrito TRAFFIC ATTENDANT) History Chief Complaint: Neck pain (Jeff Talbert. TRAFFIC ATTENDANT) Interval History 11/18: 81-year-old female previously admitted to [facility] through the emergency room July 2016 with a 7 month history of progressive upper extremity and lower extremity weakness and sensory loss with inability to ambulate. Initial imaging studies revealed severe mid cervical stenosis with significant signal intensity changes within the cord. Patient underwent anterior and posterior decompression as follows: 08/08/16 C4 5 and C6 7 anterior cervical discectomy, resection herniated nucleus pulposus and posterior osteophytic disc complexes-microtechnique. C4 5 and C6 7 anterior interbody fusion with composite allograft bone. C4 5 and C6 7 anterior cervical instrumentation 08/15/16 - bilateral C4, C5, C6, C7 decompressive semi-laminectomy, medial facetectomy for dorsal spinal cord decompression with bilateral C4-C7 posterior instrumentation, bilateral C7 pedicle screw fixation and bilateral C4-C7 posterior fusion with local autograft and allograft bone The patient was seen in the office for follow-up within the past week and a postoperative CT scan revealed good incorporation of the graft and instrumentation. The patient was doing very well at that time was significant improvement in her severe preoperative quadriparesis, starting to ambulate with a walker. Patient correction facility contacted neurosurgery office today indicating increased numbness in the upper extremities today. Patient brought into the emergency room for further evaluation with MRI scan accomplished which reveals new areas of upper cervical stenosis with cord compression and question of infection. 11/19: doing well, stable overnight. no new complaints currently 11/20: says she had a very good night, very happy with her care. no new complaints. awaiting for surgery tu11/21: The patient is doing well when seen this afternoon. She complained of neck pain then said it was to both shoulders. She had no other complaints. She did say that her legs buckle under her. 11/22: Patient went for a C3 laminoplasty w/titanium plate & composite allograft bone and bilateral inferior C2 & superior C4 decompressive semi-laminectomy. Post-operatively the patient did well and was returned to her room on a med/ surg floor. 11/23: This morning the patient states she is in pain. Nursing is in the room and has her morning meds including tramadol. She readily interacts, smiles and jokes. She does state the numbness and weakness to her legs is worse than before surgery. (Jeff Talbert) System Review Comments Constitutional: Patient denies any fever or chills. HEENT: Patient denies any visual or hearing problems. Neck: Patient complains of neck pain. Respiratory: Patient denies any shortness of breath or productive cough. Cardiovascular: Patient denies any chest pain, palpitations or irregular heartbeat. Gastrointestinal: Patient denies any abdominal pain, nausea or vomiting. Genitourinary: Patient has a Rojas catheter in place. Musculoskeletal: Patient complains increased weakness to the lower extremities after surgery. She denies any pain to the extremities. Neurologic: Patient complains of increased weakness and numbness to the lower extremities after surgery. She denies any headache or dizziness. (Jeff Talbert) Exam Results Vital Signs Date Time Temp Pulse Resp B/P Pulse Ox O2 Delivery O2 Flow Rate FiO2 11/23/16 07:56 97 21 11/23/16 07:32 97.4 62 18 137/45 11/22/16 21:25 Nasal Cannula 2.00 Intake and Output 11/22/16 11/22/16 11/23/16 08:00 16:00 00:00 Intake Total 0 ml 87 ml 2640 ml Output Total 1340 ml Balance 0 ml 87 ml 1300 ml (Jeff Talbert) Physical Examination General: Patient is awake & alert in bed talking with family/friends, readily interacts, smiles & jokes, affect normal, no apparent distress. HEENT: Normocephalic, atraumatic. Neck: In Vaughan J cervical collar, upper midline cervical spine TTP, intact dressing to surgical wound w/RUSTY drain to bulb suction, no JVD, trachea midline. Respiratory: CTAB w/o W/R/R, equal excursion, nonlaboured, on RA. Cardiovascular: S1S2 w/RRR w/o M/G/R, radial & pedal pulses 2+ bilaterally, cap refill < 2 sec, pedal edema 1+ bilaterally. Gastrointestinal: Abdomen soft, nontender, positive bowel sounds. Skin: Warm, dry & intact except for intact posterior cervical spine surgical dressing intact w/o any shadowing, erythema or streaking, no evident discolouration, rashes, ulcerations or lesions. Musculoskeletal: CUMMINS to varying degree, no deformity or clubbing noted. Neurologic: AAOx3. Speech clear & appropriate. Follows commands w/o difficulty. Sensation diminished to light touch to all extremities with LE worse than before surgery. Strength 4 to 4+/5 to BUE and 2+ to 3/5 LLE better than RLE. (Jeff Talbert) Lab, Micro, Other Results Allergies Coded Allergies Type Severity Reaction Last Updated Verified Morphine Allergy Severe Shortness of Breath 11/11/16 Yes Neosporin Allergy Severe Shortness of Breath 11/11/16 Yes Neomycin Allergy Unknown RASHES 11/18/16 Yes Penicillin Allergy Unknown RASHES 11/18/16 Yes Promethazine Allergy Unknown UNKNOWN 11/18/16 Yes Recent Impressions Chest X-Ray 11/21/16 0000 Signed Impressions: Service Date/Time: Monday, November 21, 2016 18:52 - CONCLUSION: 1. Postoperative median sternotomy with CABG. Minimal basal atelectasis or scarring. Compa Desir MD // 06:00 18:00 06:00 18:00 06:00 18:00 Intake Total 480 ml 600 ml 837 ml 87 ml 2640 ml 240 ml Output Total 1360 ml 175 ml Balance 480 ml 600 ml 837 ml 87 ml 1280 ml 65 ml Intake Oral 480 ml 600 ml 480 ml 0 ml 240 ml 240 ml IV Total 357 ml 87 ml Other 2400 ml Output Urine Total 700 ml 175 ml Drainage Total 60 ml Estimated Blood Loss 600 ml # Voids 4 2 5 6 # Bowel Movements 0 1 0 2 0 0 Laboratory Tests Test 11/20/16 11/20/16 11/21/16 11/21/16 14:42 22:23 06:20 14:45 Activated Partial 78.8 SEC 45.3 SEC 39.3 SEC 48.5 SEC Thromboplast Time Test 11/21/16 11/22/16 11/22/16 11/22/16 20:48 07:25 12:50 18:47 Activated Partial 43.6 SEC 50.4 SEC Thromboplast Time White Blood Count 3.8 TH/MM3 3.7 TH/MM3 Red Blood Count 3.95 MIL/MM3 3.31 MIL/MM3 Hemoglobin 11.7 GM/DL 9.7 GM/DL Hematocrit 35.3 % 29.4 % Mean Corpuscular Volume 89.4 FL 88.8 FL Mean Corpuscular Hemoglobin 29.5 PG 29.3 PG Mean Corpuscular Hemoglobin 33.0 % 33.0 % Concent Red Cell Distribution Width 16.2 % 16.3 % Platelet Count 184 TH/MM3 168 TH/MM3 Mean Platelet Volume 9.2 FL 9.0 FL Urine Color YELLOW Urine Turbidity CLOUDY Urine pH 7.5 Urine Specific [place] 1.001 Urine Protein 100 mg/dL Urine Glucose (UA) NEG mg/dL Urine Ketones NEG mg/dL Urine Occult Blood SMALL Urine Nitrite NEG Urine Bilirubin NEG Urine Urobilinogen LESS THAN 2.0 MG/DL Urine Leukocyte Esterase LARGE Urine RBC /hpf Urine WBC /hpf Urine WBC Clumps MANY Urine Squamous Epithelial 5 /hpf Cells Urine Bacteria MANY /hpf Microscopic Urinalysis Comment CATH-CULTURE IND Neutrophils (%) (Auto) 61.1 % Lymphocytes (%) (Auto) 25.2 % Monocytes (%) (Auto) 9.7 % Eosinophils (%) (Auto) 2.8 % Basophils (%) (Auto) 1.2 % Neutrophils # (Auto) 2.3 TH/MM3 Lymphocytes # (Auto) 0.9 TH/MM3 Monocytes # (Auto) 0.4 TH/MM3 Eosinophils # (Auto) 0.1 TH/MM3 Basophils # (Auto) 0.0 TH/MM3 CBC Comment DIFF FINAL Differential Comment Sodium Level 139 MEQ/L Potassium Level 4.0 MEQ/L Chloride Level 106 MEQ/L Carbon Dioxide Level 26.5 MEQ/L Anion Gap 7 MEQ/L Blood Urea Nitrogen 17 MG/DL Creatinine 0.70 MG/DL Estimat Glomerular Filtration 80 ML/MIN Rate Random Glucose 134 MG/DL Calcium Level 8.0 MG/DL Test 11/23/16 07:35 White Blood Count 6.0 TH/MM3 Red Blood Count 3.47 MIL/MM3 Hemoglobin 10.3 GM/DL Hematocrit 31.2 % Mean Corpuscular Volume 89.9 FL Mean Corpuscular Hemoglobin 29.6 PG Mean Corpuscular Hemoglobin 32.9 % Concent Red Cell Distribution Width 16.3 % Platelet Count 139 TH/MM3 Mean Platelet Volume 9.7 FL Neutrophils (%) (Auto) 70.3 % Lymphocytes (%) (Auto) 18.8 % Monocytes (%) (Auto) 8.3 % Eosinophils (%) (Auto) 1.7 % Basophils (%) (Auto) 0.9 % Neutrophils # (Auto) 4.2 TH/MM3 Lymphocytes # (Auto) 1.1 TH/MM3 Monocytes # (Auto) 0.5 TH/MM3 Eosinophils # (Auto) 0.1 TH/MM3 Basophils # (Auto) 0.1 TH/MM3 CBC Comment DIFF FINAL Differential Comment Hematology Comments Sodium Level 139 MEQ/L Potassium Level 4.7 MEQ/L Chloride Level 106 MEQ/L Carbon Dioxide Level 26.5 MEQ/L Anion Gap 7 MEQ/L Blood Urea Nitrogen 17 MG/DL Creatinine 0.79 MG/DL Estimat Glomerular Filtration 70 ML/MIN Rate Random Glucose 74 MG/DL Calcium Level 8.2 MG/DL Vital Signs Date Time Temp Pulse Resp B/P Pulse Ox O2 Delivery O2 Flow Rate FiO2 11/23/16 07:56 97 21 11/23/16 07:32 97.4 62 18 137/45 100 11/23/16 03:38 97.4 62 17 121/48 98 11/23/16 00:29 21 11/23/16 00:00 97.1 60 17 139/63 100 11/22/16 21:25 98 Nasal Cannula 2.00 11/22/16 20:36 96.4 66 17 148/62 94 11/22/16 19:15 52 12 120/54 100 Nasal Cannula 2 11/22/16 19:00 98.0 54 12 119/57 100 Nasal Cannula 2 11/22/16 18:45 55 12 133/59 100 Nasal Cannula 2 11/22/16 18:30 96.9 56 12 119/55 100 Nasal Cannula 2 11/22/16 18:15 56 12 119/55 100 Simple Mask 6 11/22/16 18:04 96.5 56 12 120/55 100 Simple Mask 6 11/22/16 08:00 96.9 54 18 145/58 98 11/22/16 03:30 96.9 60 17 170/70 98 11/21/16 23:25 97.9 90 18 131/56 95 11/21/16 20:46 98.0 66 18 144/64 97 8/7/17 16:00 97.2 65 18 117/58 99 11/21/16 11:38 98.0 60 18 113/58 96 11/21/16 07:26 96.5 55 18 140/62 98 11/21/16 04:10 97.1 54 16 134/57 96 11/21/16 00:10 98.2 60 17 134/54 97 11/20/16 20:05 97.6 63 17 132/59 99 11/20/16 15:00 97.5 57 17 119/58 99 11/20/16 11:15 96.8 65 17 138/60 99 (Jeff Talbert) Medical Decision Making Impression and Plan Impression: 1. Development of increasing stenosis above previous C4 anterior- posterior cervical decompression site. Now with significant C2 3 and C3 4 stenosis with anterior and posterior compression. Positive increased spinal cord signal intensity at the C3 4 level. Question of infection versus inflammatory tissue at the posterior cervical operative site. No definite abscess or focal fluid collection. No elevation of white count. 2. Hypertension 3. Diabetes 4. Upper extremity DVT-on Xarelto Negative occult blood stool x3 UA indicative of UTI. Urine culture pending. Wound stains & cultures pending. Patient with essentially stable neuro exam BUE but worsening to BLE. RUSTY drain w/60 mL out as of this morning. Postoperative Diagnosis: (1) Cervical spinal stenosis (2) Cervical myelopathy C2 3 and C3 4 stenosis with spinal cord compression, following previous C4-C7 anterior and posterior decompression and fusion. Cervical myelopathy POD #1 () s/p : 1. C3 laminoplasty, titanium plate, composite allograft bone 2. Bilateral inferior C2 and superior C4 decompressive semi-laminectomy 3. Preparation of allograft bone for laminoplasty bone graft. Plan: Mobilise patient w/assistance. PT eval & tx. Medical management per Hospitalist/Medicine, to include DVT UE tx. Will follow serous fluid cultures sent from surgery. Addendum at 1054 - Discussed with Dr Eddy, will obtain MRI cervical spine w/o contrast due to worsening BLE weakness/numbness. Will hold anticoagulation until at least 72 hrs post-op if drain is out and MRI is unremarkable. BET (Jeff Talbert) Attending Statement I have personally seen and examined the patient on the date of this note. Pertinent documentation and study results have been reviewed by the undersigned. I have personally developed the treatment plan and performed medical decision making. Agree with findings, exam, and treatment plan as noted above. Sensation is mildly diminished light touch in both hands with complaint of diffuse paresthesia. She states that she has no recurrent significant numbness or paresthesias or dysesthesia over the abdominal region. She indicates moderate diffuse decreased sensation light touch in the lower extremities, unchanged compared to her recent surgery. Motor function is mostly 4/5 bilateral biceps triceps deltoids with mostly 2+ to 3/5 bilateral hand intrinsics and wrist flexion and extension. Motor function is mostly 2+ to 3/5 major flexion and extension groups bilateral lower extremities. Postoperative MRI images reviewed. There is moderate residual canal stenosis, but severe cord compression noted preoperatively at the C3 4 level is significantly improved. No increased cord edema. Long discussion with the patient regarding her present situation. Would like to observe her progress over the next few days with therapy. If she has decline in her neurologic function, then a more aggressive cervical laminectomy and fusion up to the C2 level could be considered, although the plan has been to try to avoid this with a more limited laminoplasty and semi- laminectomy decompressive procedure. Continue physical therapy Plan discontinue drain on 11/24/16 (Sav Eddy MD) Jeff Talbert Nov 23, 2016 10:27 Sav Eddy MD Nov 23, 2016 19:46
[2016-11-23] MEDS ORDERED: GADODIAMIDE PF 287 MG/ML 5 ML VIAL (for RAD MRI) IV ONE (13:54)
--- NOTE | 2016-11-23 14:27 | RADRPT ---
EXAM DATE/TIME: 11/23/2016 13:13 [facility] COMPARISON: MRI CERVICAL SPINE W & W/O CONTRAST, November 18, 2016, 19:50. INDICATIONS : Myelopathy post C2-4 fusion. CONTRAST: 13 cc Omniscan (gadodiamide) IV MEDICAL HISTORY : Hypertension. Diabetes mellitus type 2. SURGICAL HISTORY : Hysterectomy. CABG Fusion, cervical. fusion, cervical ENCOUNTER: Subsequent ACUITY: 4-6 days PAIN SCORE: 4/10 LOCATION: Neck TECHNIQUE: Multiplanar, multisequence MRI examination of the cervical spine was performed. FINDINGS: VERTEBRAE: Patient is status post posterior cervical fusion with postoperative changes in the soft tissues poste riorly from C2-C7. Subcutaneous fluid collections are evident. There is minimal disc bulging at C2-C3 with spinal stenosis as described initially. There is posterior impression on the cord at C3-C4 central as the previously described, improved slig htly. Minimal airspace ridging is present at the C4-C5, C5-C6 and C6-C7 levels. There is persistent increased signal in the cervical cord at the C4 level. There is minimal increased signal in the cord at the C6-C7 level, stable in interval.. Postsurgical changes are seen in the posterior soft tissues of the neck. There are no radiographically significant fluid collections evident causing the cord impingement. CONCLUSION: Significant postsurgical changes as described above. There is persistent high cervical spinal stenosis at the C2-C3 and C3-C4 level Persistent signal changes are present in the cord at C4 and C6. Asad Rajan MD FACR on November 23, 2016 at 14:18 Board Certified Radiologist. This report was verified electronically.
--- NOTE | 2016-11-23 14:37 | HHI.PR ---
Subjective Remarks Follow-up cervical myelopathy. Complains of neck pain controlled with by mouth meds. Reports of usual weakness not improved after surgery. Discussed with RN , neurosurgery wants to keep Rojas catheter for now Objective Vitals Vital Signs Date Time Temp Pulse Resp B/P Pulse Ox O2 Delivery O2 Flow Rate FiO2 11/23/16 11:52 97.8 62 18 136/67 98 11/23/16 07:56 97 21 11/23/16 07:32 97.4 62 18 137/45 100 11/23/16 03:38 97.4 62 17 121/48 98 11/23/16 00:29 21 11/23/16 00:00 97.1 60 17 139/63 100 11/22/16 21:25 98 Nasal Cannula 2.00 11/22/16 20:36 96.4 66 17 148/62 94 11/22/16 19:15 52 12 120/54 100 Nasal Cannula 2 11/22/16 19:00 98.0 54 12 119/57 100 Nasal Cannula 2 11/22/16 18:45 55 12 133/59 100 Nasal Cannula 2 11/22/16 18:30 96.9 56 12 119/55 100 Nasal Cannula 2 11/22/16 18:15 56 12 119/55 100 Simple Mask 6 11/22/16 18:04 96.5 56 12 120/55 100 Simple Mask 6 I/O 11/22/16 11/22/16 11/22/16 11/23/16 11/23/16 11/23/16 07:00 15:00 23:00 07:00 15:00 23:00 Intake Total 0 ml 87 ml 2640 ml 240 ml Output Total 1340 ml 195 ml Balance 0 ml 87 ml 1300 ml 45 ml Intake Oral 0 ml 240 ml 240 ml IV Total 87 ml Other 2400 ml Output Urine Total 700 ml 175 ml Drainage Total 40 ml 20 ml Estimated Blood Loss 600 ml # Voids 4 2 # Bowel Movements 0 2 0 0 Result Diagram: 11/23/16 0735 11/23/16 0735 Imaging Last Impressions Cervical Spine MRI 11/23/16 0000 Signed Impressions: Service Date/Time: Wednesday, November 23, 2016 13:13 - CONCLUSION: Significant postsurgical changes as described above. There is persistent high cervical spinal stenosis at the C2-C3 and C3-C4 level Persistent signal changes are present in the cord at C4 and C6. Asad Rajan MD FACR Chest X-Ray 11/21/16 0000 Signed Impressions: Service Date/Time: Monday, November 21, 2016 18:52 - CONCLUSION: 1. Postoperative median sternotomy with CABG. Minimal basal atelectasis or scarring. Compa Desir MD Upper Extremity Ultrasound 11/18/16 1843 Signed Impressions: Service Date/Time: Friday, November 18, 2016 20:25 - CONCLUSION: Positive for deep venous thrombosis in the axillary and brachial veins. Juan Beltre MD Objective Remarks GENERAL: Well-developed, obese in no distress SKIN: Warm and dry. HEAD: Atraumatic. Normocephalic. EYES: Pupils equal and round. No scleral icterus. No injection or drainage. ENT: No nasal bleeding or discharge. Mucous membranes pink and moist. NECK: Trachea midline. No JVD. CARDIOVASCULAR: Regular rate and rhythm. RESPIRATORY: No accessory muscle use. Clear to auscultation. Breath sounds equal bilaterally. GASTROINTESTINAL: Abdomen soft, non-tender, nondistended. MUSCULOSKELETAL: Extremities without clubbing, cyanosis, or edema. No obvious deformities. NEUROLOGICAL: Awake and alert. No obvious cranial nerve deficits. Weak bilateral lower extremities. Normal speech. PSYCHIATRIC: Appropriate mood and affect; insight and judgment normal. Procedures Procedure: 1. C3 laminoplasty, titanium plate, composite allograft bone 2. Bilateral inferior C2 and superior C4 decompressive semi-laminectomy 3. Preparation of allograft bone for laminoplasty bone graft. A/P Problem List: (1) Cervical spinal stenosis ICD Code: M48.02 Status: Acute (2) Cervical disc disease with myelopathy ICD Code: M50.00 Status: Acute (3) HTN (hypertension) ICD Code: I10 Status: Chronic (4) Leg weakness, bilateral ICD Code: R29.898 Status: Acute (5) Left upper extremity deep vein thrombosis ICD Code: I82.622 Status: Acute (6) Cough ICD Code: R05 Status: Acute Assessment and Plan This is an 81-year-old female patient with past medical history which includes diabetes mellitus, hypertension, hyperlipidemia, coronary artery disease status post coronary artery bypass graft and DVT upper extremity. S/P C-spine surgery 08/08/2016 and 08/15/2016. Patient now with MRI which reveals new area of upper cervical stenosis with cord compression and question of infection. Patient also has ultrasound left upper extremity which shows DVT of axillary and brachial veins. We've been consulted for assistance with medical management and heparin bridge. Cervical stenosis with lower weakness/paresthesia. Status post surgery but continues to have weakness. Repeat MRI shows persistent cervical stenosis. Continue physical therapy, wound care, incentive spirometry and pain management DVT left upper arm Xarelto on hold. Neurosurgery wants to put anticoagulation on hold for now Plan to resume anticoagulation once cleared by neurosurgery postoperatively Hypothyroidism continue home Synthroid 50 mcg by mouth daily dose. Diabetes mellitus continue home Levemir 12 units subcutaneous daily at bedtime and preprandial NovoLog 3 units subcutaneous before meals Monitor Accu-Cheks before meals at bedtime with sliding scale insulin coverage. Stable Hypertension- stable Continue home medications which include carvedilol ER 40 mg by mouth daily, lisinopril 40 mg by mouth daily and nifedipine 90 mg by mouth daily Hyperlipidemia stable Hold Crestor 10 minutes by mouth daily at bedtime per neurosurgery Continue Zetia 10 mg by mouth daily at bedtime Abnormal urinalysis. Denies UTI symptoms. Follow urine culture. Discontinue Rojas catheter as soon as possible Postoperative anemia secondary to acute blood loss. Monitor DVT prophylaxis with SCD. Discharge Planning Per neurosurgery Baltazar Wooten MD Nov 23, 2016 14:37
[2016-11-23] MEDS: INSULIN HUMAN REGULAR 1,000 UNITS/10 ML VIAL SQ PRN (17:00)
[2016-11-23] MEDS: GABAPENTIN 300 MG CAP PO SCH (20:51)
[2016-11-23] MEDS: MULTIVITAMINS/MINERALS THERAPEUTIC TAB PO SCH (20:51)
[2016-11-23] MEDS: EZETIMIBE 10 MG TAB PO SCH (20:52)
[2016-11-23] MEDS: INSULIN DETEMIR 100 UNITS/ML VIAL SQ SCH (20:52)
[2016-11-24] MEDS: FREE WATER PO SCH ×6 (03:00→22:41)
[2016-11-24] MEDS: traMADol HCL 50 MG TAB PO PRN ×3 (04:07→22:40)
[2016-11-24 04:34] VITALS: BP 128/61; PULSE 70; RESP 17; TEMP 98; O2SAT 92
[2016-11-24] MEDS: LEVOTHYROXINE SODIUM 50 MCG TAB PO SCH (05:57)
[2016-11-24] MEDS: INSULIN NovoLIN REGULAR SUPPLEMENTAL SCALE SQ SCH ×4 (06:53→22:38)
[2016-11-24 07:55] VITALS: BP 131/72; PULSE 62; RESP 17; TEMP 98.4; O2SAT 93
[2016-11-24] MEDS: LISINOPRIL 20 MG TAB PO SCH (10:11)
[2016-11-24] MEDS: FOLIC ACID 1 MG TAB PO SCH (10:11)
[2016-11-24] MEDS: CARVEDILOL 12.5 MG TAB PO SCH ×2 (10:11→22:41)
[2016-11-24] MEDS: FERROUS SULFATE 325 MG (65 MG ELEMENTAL IRON) TAB PO SCH ×2 (10:11→22:37)
[2016-11-24] MEDS: TOLTERODINE TARTRATE 4 MG CAP LA PO SCH (10:11)
[2016-11-24] MEDS: DOCUSATE SODIUM 50 MG/SENNA 8.6 MG TAB PO SCH ×2 (10:11→22:41)
[2016-11-24] MEDS: MAGNESIUM OXIDE 400 MG TAB PO SCH ×2 (10:12→22:37)
[2016-11-24] MEDS: POLYETHYLENE GLYCOL 17 GM PKG PO SCH (10:12)
[2016-11-24] MEDS: NIFEdipine 90 MG SUSTAINED RELEASE TAB PO SCH (10:12)
--- NOTE | 2016-11-24 11:03 | HHI.NSPN ---
(Jeff Talbert) History Chief Complaint: Persistent numbness and weakness. (Jeff Talbert) Interval History 11/18: 81-year-old female previously admitted to [facility] through the emergency room July 2016 with a 7 month history of progressive upper extremity and lower extremity weakness and sensory loss with inability to ambulate. Initial imaging studies revealed severe mid cervical stenosis with significant signal intensity changes within the cord. Patient underwent anterior and posterior decompression as follows: 08/08/16 C4 5 and C6 7 anterior cervical discectomy, resection herniated nucleus pulposus and posterior osteophytic disc complexes-microtechnique. C4 5 and C6 7 anterior interbody fusion with composite allograft bone. C4 5 and C6 7 anterior cervical instrumentation 08/15/16 - bilateral C4, C5, C6, C7 decompressive semi-laminectomy, medial facetectomy for dorsal spinal cord decompression with bilateral C4-C7 posterior instrumentation, bilateral C7 pedicle screw fixation and bilateral C4-C7 posterior fusion with local autograft and allograft bone The patient was seen in the office for follow-up within the past week and a postoperative CT scan revealed good incorporation of the graft and instrumentation. The patient was doing very well at that time was significant improvement in her severe preoperative quadriparesis, starting to ambulate with a walker. Patient shelter facility contacted neurosurgery office today indicating increased numbness in the upper extremities today. Patient brought into the emergency room for further evaluation with MRI scan accomplished which reveals new areas of upper cervical stenosis with cord compression and question of infection. 11/19: doing well, stable overnight. no new complaints currently 11/20: says she had a very good night, very happy with her care. no new complaints. awaiting for surgery tu11/21: The patient is doing well when seen this afternoon. She complained of neck pain then said it was to both shoulders. She had no other complaints. She did say that her legs buckle under her. 11/22: Patient went for a C3 laminoplasty w/titanium plate & composite allograft bone and bilateral inferior C2 & superior C4 decompressive semi-laminectomy. Post-operatively the patient did well and was returned to her room on a med/ surg floor. 11/23: This morning the patient states she is in pain. Nursing is in the room and has her morning meds including tramadol. She readily interacts, smiles and jokes. She does state the numbness and weakness to her legs is worse than before surgery. 11/24: The patient is doing well when seen and states she isn't in any pain when seen. She states that the numbness and weakness to the extremities is the same. (Jeff Talbert) System Review Comments Constitutional: Patient denies any fever or chills. HEENT: Patient denies any visual or hearing problems. Neck: Patient denies any neck pain. Respiratory: Patient denies any shortness of breath or productive cough. Cardiovascular: Patient denies any chest pain, palpitations or irregular heartbeat. Gastrointestinal: Patient denies any abdominal pain, nausea or vomiting. Genitourinary: Patient has a Rojas catheter in place. Musculoskeletal: Patient with persistent weakness to the extremities. She denies any pain to the extremities. Neurologic: Patient with persistent weakness and numbness to the extremities. She denies any headache or dizziness. (Jeff Talbert) Exam Results Vital Signs Date Time Temp Pulse Resp B/P Pulse Ox O2 Delivery O2 Flow Rate FiO2 11/24/16 07:55 98.4 62 17 131/72 93 11/23/16 21:22 21 11/22/16 21:25 Nasal Cannula 2.00 Intake and Output 11/23/16 11/23/16 11/24/16 08:00 16:00 00:00 Intake Total 240 ml 960 ml 480 ml Output Total 195 ml 700 ml 560 ml Balance 45 ml 260 ml -80 ml (Jeff Talbert) Physical Examination General: Patient is asleep but awakens to verbal stimuli. After that she is awake & alert and readily interacts, smiles & jokes. Her affect is normal. No apparent distress. HEENT: Normocephalic, atraumatic. Neck: In [place] J cervical collar, midline cervical spine TTP, intact dressing to surgical wound w/RUSTY drain to bulb suction w/trace sanguinous drainage in bulb , no JVD, trachea midline. Respiratory: CTAB w/o W/R/R, equal excursion, nonlaboured, on RA. Cardiovascular: S1S2 w/RRR w/o M/G/R, radial & pedal pulses 2+ bilaterally, cap refill < 2 sec, pedal edema 1+ bilaterally. Gastrointestinal: Abdomen soft, nontender, positive bowel sounds. Skin: Warm, dry & intact except for intact posterior cervical spine surgical dressing intact w/o any shadowing, erythema or streaking, no evident discolouration, rashes, ulcerations or lesions. Musculoskeletal: CUMMINS to varying degree, no deformity or clubbing noted. Neurologic: AAOx3. Speech clear & appropriate. Follows commands w/o difficulty. Sensation diffusely diminished to light touch to all extremities. Strength 4 to 4+/5 to bilateral biceps, triceps & deltoids and 2+ to 3/5 hand intrinsics & wrist flexion/extension; with 2+ to 3/5 LLE better than RLE. ( Jeff Talbert) Medical Decision Making Impression and Plan Impression: 1. Development of increasing stenosis above previous C4 anterior- posterior cervical decompression site. Now with significant C2 3 and C3 4 stenosis with anterior and posterior compression. Positive increased spinal cord signal intensity at the C3 4 level. Question of infection versus inflammatory tissue at the posterior cervical operative site. No definite abscess or focal fluid collection. No elevation of white count. 2. Hypertension 3. Diabetes 4. Upper extremity DVT-on Xarelto Negative occult blood stool x3 Urine culture positive for Escherichia coli. Wound fluid w/negative stains, cultures in process. Patient with essentially stable neuro exam. RUSTY drain w/20 mL out during past 24 hrs. Postoperative Diagnosis: (1) Cervical spinal stenosis (2) Cervical myelopathy C2 3 and C3 4 stenosis with spinal cord compression, following previous C4-C7 anterior and posterior decompression and fusion. Cervical myelopathy POD #2 () s/p : 1. C3 laminoplasty, titanium plate, composite allograft bone 2. Bilateral inferior C2 and superior C4 decompressive semi-laminectomy 3. Preparation of allograft bone for laminoplasty bone graft. Plan: Mobilise patient w/assistance. PT & OT eval & tx. Will follow how patient does in therapy before deciding on further surgery. Medical management per Hospitalist/Medicine, to include DVT UE tx. Will follow serous fluid cultures sent from surgery. D/C RUSTY drain. Hold anticoagulation for 72 hrs after RUSTY drain is removed. Will start patient on Macrobid 100 mg BID x7d for UTI. (Jeff Talbert) Attending Statement The exam, history, and the medical decision-making described in the above note were completed with the assistance of the mid-level provider. I reviewed and agree with the findings presented. I attest that I had a [id number] encounter with the patient on the same day, and personally performed and documented my assessment and findings in the medical record. Motor function is relatively stable compared to preoperative, although she was able to stand with assistance and take a couple of steps with physical therapy today. Option of a full decompressive laminectomy with C2-4 fusion versus continuing therapy and observation was discussed with the patient. She wishes to continue observation at this point. She understands that further decompression may be necessary in the future she has not improved significantly. She can proceed to inpatient rehabilitation from neurosurgical standpoint. (Sav Eddy MD) Jeff Talbert Nov 24, 2016 11:03 Sav Eddy MD Nov 24, 2016 14:14
[2016-11-24 11:24] VITALS: O2SAT 96
[2016-11-24 11:41] VITALS: BP 110/65; PULSE 61; RESP 17; TEMP 98.3; O2SAT 95
--- NOTE | 2016-11-24 14:14 | HHI.DCPOC ---
Discharge Care Plan Diagnosis: (1) Cervical myelopathy (2) HTN (hypertension) Your Health Problems Are: Difficulty with ADL Exercise Tolerance Loss of Movements Goals to Promote Your Health * To prevent worsening of your condition and complications * To maintain your health at the optimal level Directions to Meet Your Goals Take your medications as prescribed Follow your dietary instruction Follow activity as directed Keep your appointments as scheduled Take your immunizations and boosters as scheduled If your symptoms worsen call your PCP, if no PCP go to Urgent Care Center or Emergency Room Smoking is Dangerous to Your Health. Avoid second hand smoke Call the 24-hour hour crisis hotline for domestic abuse at Sav Eddy MD Nov 24, 2016 14:14
[2016-11-24 15:15] VITALS: BP 98/42; PULSE 59; RESP 17; TEMP 97.3; O2SAT 94
--- NOTE | 2016-11-24 15:32 | HHI.PR ---
Subjective Remarks Follow-up UTI. Denies UTI symptoms currently with Rojas catheter. Objective Vitals Vital Signs Date Time Temp Pulse Resp B/P Pulse Ox O2 Delivery O2 Flow Rate FiO2 11/24/16 11:41 98.3 61 17 110/65 95 11/24/16 11:24 96 21 11/24/16 07:55 98.4 62 17 131/72 93 11/24/16 04:34 98.0 70 17 128/61 92 11/23/16 23:41 97.9 72 18 127/56 97 11/23/16 21:22 21 11/23/16 19:46 97.1 66 17 113/51 96 11/23/16 16:00 98.1 64 18 116/50 97 I/O 11/23/16 11/23/16 11/23/16 11/24/16 11/24/16 11/24/16 07:00 15:00 23:00 07:00 15:00 23:00 Intake Total 240 ml 960 ml 480 ml 480 ml Output Total 195 ml 700 ml 560 ml 960 ml Balance 45 ml 260 ml -80 ml -480 ml Intake Oral 240 ml 960 ml 480 ml 480 ml Output Urine Total 175 ml 700 ml 550 ml 950 ml Drainage Total 20 ml 10 ml 10 ml # Bowel Movements 0 0 0 0 Result Diagram: 11/23/1673411/23/16734 Objective Remarks GENERAL: Well-developed, obese in no distress CARDIOVASCULAR: Regular rate and rhythm. RESPIRATORY: No accessory muscle use. Clear to auscultation. Breath sounds equal bilaterally. GASTROINTESTINAL: Abdomen soft, non-tender, nondistended. MUSCULOSKELETAL: Extremities without clubbing, cyanosis, or edema. No obvious deformities. NEUROLOGICAL: Awake and alert. No obvious cranial nerve deficits. Weak bilateral lower extremities. Normal speech. Procedures Procedure: 1. C3 laminoplasty, titanium plate, composite allograft bone 2. Bilateral inferior C2 and superior C4 decompressive semi-laminectomy 3. Preparation of allograft bone for laminoplasty bone graft. A/P Problem List: (1) Cervical spinal stenosis ICD Code: M48.02 Status: Acute (2) Cervical disc disease with myelopathy ICD Code: M50.00 Status: Acute (3) HTN (hypertension) ICD Code: I10 Status: Chronic (4) Leg weakness, bilateral ICD Code: R29.898 Status: Acute (5) Left upper extremity deep vein thrombosis ICD Code: I82.622 Status: Acute (6) Cough ICD Code: R05 Status: Acute Assessment and Plan This is an 81-year-old female patient with past medical history which includes diabetes mellitus, hypertension, hyperlipidemia, coronary artery disease status post coronary artery bypass graft and DVT upper extremity. S/P C-spine surgery 08/08/2016 and 08/15/2016. Patient now with MRI which reveals new area of upper cervical stenosis with cord compression and question of infection. Patient also has ultrasound left upper extremity which shows DVT of axillary and brachial veins. We've been consulted for assistance with medical management and heparin bridge. Cervical stenosis with lower weakness/paresthesia. Status post surgery but continues to have weakness. Repeat MRI shows persistent cervical stenosis. Continue physical therapy, wound care, incentive spirometry and pain management DVT left upper arm Xarelto on hold. Neurosurgery wants to put anticoagulation on hold for 72 hrs after RUSTY drain is removed today. Hypothyroidism continue home Synthroid 50 mcg by mouth daily dose. Diabetes mellitus continue home Levemir 12 units subcutaneous daily at bedtime and preprandial NovoLog 3 units subcutaneous before meals Monitor Accu-Cheks before meals at bedtime with sliding scale insulin coverage. Stable Hypertension- stable Continue home medications which include carvedilol ER 40 mg by mouth daily, lisinopril 40 mg by mouth daily and nifedipine 90 mg by mouth daily Hyperlipidemia stable Hold Crestor 10 minutes by mouth daily at bedtime per neurosurgery Continue Zetia 10 mg by mouth daily at bedtime Escherichia coli UTI. Start Macrobid for 7 days. Discontinue Rojas catheter as soon as possible Postoperative anemia secondary to acute blood loss. Monitor DVT prophylaxis with SCD. Discharge Planning Stable for discharge from medical standpoint Baltazar Wooten MD Nov 24, 2016 15:32
[2016-11-24] MEDS ORDERED: NITR100C4 PO (15:33)
[2016-11-24] MEDS ORDERED: NITROFURANTOIN MONOHYD MACROCR 100 MG CAP PO SCH (18:00)
[2016-11-24] MEDS: NITROFURANTOIN MONOHYD MACROCR 100 MG CAP PO SCH (18:12)
[2016-11-24] MEDS: INSULIN HUMAN REGULAR 1,000 UNITS/10 ML VIAL SQ PRN (18:14)
[2016-11-24 19:00] VITALS: BP 111/56; PULSE 74; RESP 18; TEMP 98.6; O2SAT 94
[2016-11-24] MEDS: INSULIN DETEMIR 100 UNITS/ML VIAL SQ SCH (22:39)
[2016-11-24] MEDS: EZETIMIBE 10 MG TAB PO SCH (22:40)
[2016-11-24] MEDS: GABAPENTIN 300 MG CAP PO SCH (22:40)
[2016-11-24] MEDS: MULTIVITAMINS/MINERALS THERAPEUTIC TAB PO SCH (22:40)
[2016-11-24] MEDS: guaiFENesin/DEXTROMETHORPHAN 200 MG/20 MG/10 ML CUP PO PRN (23:25)
[2016-11-25] VITALS (7 sets, daily range): BP systolic 118–165; BP diastolic 58–75; PULSE 59–80; RESP 16–17; TEMP 96.1–99.3; O2SAT 92–96
[2016-11-25] MEDS: FREE WATER PO SCH ×6 (03:08→23:09)
[2016-11-25] MEDS: LEVOTHYROXINE SODIUM 50 MCG TAB PO SCH (06:10)
[2016-11-25] MEDS: INSULIN NovoLIN REGULAR SUPPLEMENTAL SCALE SQ SCH ×4 (06:13→22:35)
[2016-11-25] MEDS: MAGNESIUM OXIDE 400 MG TAB PO SCH ×2 (08:35→22:30)
[2016-11-25] MEDS: FERROUS SULFATE 325 MG (65 MG ELEMENTAL IRON) TAB PO SCH ×2 (08:35→22:29)
[2016-11-25] MEDS: LISINOPRIL 20 MG TAB PO SCH (08:35)
[2016-11-25] MEDS: traMADol HCL 50 MG TAB PO PRN ×2 (08:36→22:30)
[2016-11-25] MEDS: DOCUSATE SODIUM 50 MG/SENNA 8.6 MG TAB PO SCH ×2 (08:37→22:29)
[2016-11-25] MEDS: NITROFURANTOIN MONOHYD MACROCR 100 MG CAP PO SCH ×2 (08:37→18:01)
[2016-11-25] MEDS: TOLTERODINE TARTRATE 4 MG CAP LA PO SCH (08:37)
[2016-11-25] MEDS: CARVEDILOL 12.5 MG TAB PO SCH ×2 (08:38→22:29)
[2016-11-25] MEDS: FOLIC ACID 1 MG TAB PO SCH (08:41)
[2016-11-25] MEDS: NIFEdipine 90 MG SUSTAINED RELEASE TAB PO SCH (08:42)
[2016-11-25] MEDS: POLYETHYLENE GLYCOL 17 GM PKG PO SCH (08:42)
[2016-11-25] MEDS: ACETAMINOPHEN 325 MG TAB PO PRN ×2 (10:22→22:30)
--- NOTE | 2016-11-25 11:13 | HHI.PR ---
Subjective Remarks Follow-up UTI. Denies UTI symptoms. Complained of transient nausea this morning. No BM for 2 days passing gas. No abdominal pain. Discussed with RN Objective Vitals Vital Signs Date Time Temp Pulse Resp B/P Pulse Ox O2 Delivery O2 Flow Rate FiO2 11/25/16 10:49 95 21 11/25/16 09:43 16 11/25/16 07:47 97.6 60 17 165/75 96 11/25/16 04:00 98.2 72 16 125/64 95 11/25/16 00:00 97.8 70 16 118/58 95 11/24/16 19:13 Room Air 11/24/16 19:00 98.6 74 18 111/56 94 11/24/16 15:15 97.3 59 17 98/42 94 11/24/16 11:41 98.3 61 17 110/65 95 11/24/16 11:24 96 21 I/O 11/24/16 11/24/16 11/24/16 11/25/16 11/25/16 11/25/16 07:00 15:00 23:00 07:00 15:00 23:00 Intake Total 480 ml 720 ml 680 ml 480 ml Output Total 960 ml 600 ml 200 ml 600 ml Balance -480 ml 120 ml 480 ml -120 ml Intake Oral 480 ml 720 ml 680 ml 480 ml Output Urine Total 950 ml 600 ml 200 ml 600 ml Drainage Total 10 ml # Voids 0 # Bowel Movements 0 0 0 0 Result Diagram: 11/23/16 0735 11/23/16 0735 Imaging Last Impressions Cervical Spine MRI 11/23/16 0000 Signed Impressions: Service Date/Time: Wednesday, November 23, 2016 13:13 - CONCLUSION: Significant postsurgical changes as described above. There is persistent high cervical spinal stenosis at the C2-C3 and C3-C4 level Persistent signal changes are present in the cord at C4 and C6. Asad Rajan MD FACR Chest X-Ray 11/21/16 0000 Signed Impressions: Service Date/Time: Monday, November 21, 2016 18:52 - CONCLUSION: 1. Postoperative median sternotomy with CABG. Minimal basal atelectasis or scarring. Compa Desir MD Upper Extremity Ultrasound 11/18/16 1843 Signed Impressions: Service Date/Time: Friday, November 18, 2016 20:25 - CONCLUSION: Positive for deep venous thrombosis in the axillary and brachial veins. Juan Beltre MD Objective Remarks GENERAL: Well-developed, obese in no distress CARDIOVASCULAR: Regular rate and rhythm. RESPIRATORY: No accessory muscle use. Clear to auscultation. Breath sounds equal bilaterally. GASTROINTESTINAL: Abdomen soft, non-tender, nondistended. MUSCULOSKELETAL: Extremities without clubbing, cyanosis, or edema. No obvious deformities. NEUROLOGICAL: Awake and alert. No obvious cranial nerve deficits. Weak bilateral lower extremities with decreased sensation. Normal speech. Procedures Procedure: 1. C3 laminoplasty, titanium plate, composite allograft bone 2. Bilateral inferior C2 and superior C4 decompressive semi-laminectomy 3. Preparation of allograft bone for laminoplasty bone graft. A/P Problem List: (1) Cervical spinal stenosis ICD Code: M48.02 Status: Acute (2) Cervical disc disease with myelopathy ICD Code: M50.00 Status: Acute (3) HTN (hypertension) ICD Code: I10 Status: Chronic (4) Leg weakness, bilateral ICD Code: R29.898 Status: Acute (5) Left upper extremity deep vein thrombosis ICD Code: I82.622 Status: Acute (6) Cough ICD Code: R05 Status: Resolved Assessment and Plan This is an 81-year-old female patient with past medical history which includes diabetes mellitus, hypertension, hyperlipidemia, coronary artery disease status post coronary artery bypass graft and DVT upper extremity. S/P C-spine surgery 08/08/2016 and 08/15/2016. Patient now with MRI which reveals new area of upper cervical stenosis with cord compression and question of infection. Patient also has ultrasound left upper extremity which shows DVT of axillary and brachial veins. We've been consulted for assistance with medical management and heparin bridge. Cervical stenosis with lower weakness/paresthesia. Status post surgery but continues to have weakness and paresthesia. Repeat MRI shows persistent cervical stenosis. Continue physical therapy, wound care, incentive spirometry and pain management DVT left upper arm Xarelto on hold. Neurosurgery wants to put anticoagulation on hold for 72 hrs after RUSTY drain is removed 11/24. May restart Xarelto on 11/27/16 Hypothyroidism continue home Synthroid 50 mcg by mouth daily dose. Diabetes mellitus continue home Levemir 12 units subcutaneous daily at bedtime and preprandial NovoLog 3 units subcutaneous before meals Monitor Accu-Cheks before meals at bedtime with sliding scale insulin coverage. Stable Hypertension- stable Continue home medications which include carvedilol ER 40 mg by mouth daily, lisinopril 40 mg by mouth daily and nifedipine 90 mg by mouth daily Hyperlipidemia stable Hold Crestor 10 minutes by mouth daily at bedtime per neurosurgery Continue Zetia 10 mg by mouth daily at bedtime Escherichia coli UTI. Continue Macrobid for 7 days. Discontinue Rojas catheter as soon as possible Postoperative anemia secondary to acute blood loss. Monitor DVT prophylaxis with SCD. Discharge Planning Stable for discharge from medical standpoint Baltazar Wooten MD Nov 25, 2016 11:13
--- NOTE | 2016-11-25 17:31 | HHI.NSPN ---
(Jeff Talbert) History Chief Complaint: Having some neck pain. (Jeff Talbert) Interval History 11/18: 81-year-old female previously admitted to [facility] through the emergency room July 2016 with a 7 month history of progressive upper extremity and lower extremity weakness and sensory loss with inability to ambulate. Initial imaging studies revealed severe mid cervical stenosis with significant signal intensity changes within the cord. Patient underwent anterior and posterior decompression as follows: 08/08/16 C4 5 and C6 7 anterior cervical discectomy, resection herniated nucleus pulposus and posterior osteophytic disc complexes-microtechnique. C4 5 and C6 7 anterior interbody fusion with composite allograft bone. C4 5 and C6 7 anterior cervical instrumentation 08/15/16 - bilateral C4, C5, C6, C7 decompressive semi-laminectomy, medial facetectomy for dorsal spinal cord decompression with bilateral C4-C7 posterior instrumentation, bilateral C7 pedicle screw fixation and bilateral C4-C7 posterior fusion with local autograft and allograft bone The patient was seen in the office for follow-up within the past week and a postoperative CT scan revealed good incorporation of the graft and instrumentation. The patient was doing very well at that time was significant improvement in her severe preoperative quadriparesis, starting to ambulate with a walker. Patient snf facility contacted neurosurgery office today indicating increased numbness in the upper extremities today. Patient brought into the emergency room for further evaluation with MRI scan accomplished which reveals new areas of upper cervical stenosis with cord compression and question of infection. 11/19: doing well, stable overnight. no new complaints currently 11/20: says she had a very good night, very happy with her care. no new complaints. awaiting for surgery tu11/21: The patient is doing well when seen this afternoon. She complained of neck pain then said it was to both shoulders. She had no other complaints. She did say that her legs buckle under her. 11/22: Patient went for a C3 laminoplasty w/titanium plate & composite allograft bone and bilateral inferior C2 & superior C4 decompressive semi-laminectomy. Post-operatively the patient did well and was returned to her room on a med/ surg floor. 11/23: This morning the patient states she is in pain. Nursing is in the room and has her morning meds including tramadol. She readily interacts, smiles and jokes. She does state the numbness and weakness to her legs is worse than before surgery. 11/24: The patient is doing well when seen and states she isn't in any pain when seen. She states that the numbness and weakness to the extremities is the same. 11/25: The patient states that she isn't doing good today. She is having some neck pain and she is upset that she was not able to take any steps with Physical Therapy today but was to yesterday. She also stated she was nauseated this morning and did endorse not having a bowel movement for a couple days. ( Jeff Talbert) System Review Comments Constitutional: Patient denies any fever or chills. HEENT: Patient denies any visual or hearing problems. Neck: Patient is having some neck pain. Respiratory: Patient denies any shortness of breath or productive cough. Cardiovascular: Patient denies any chest pain, palpitations or irregular heartbeat. Gastrointestinal: Patient had nausea this morning. She states she hasn't had a bowel movement in a couple days. She denies any abdominal pain or vomiting. Genitourinary: Patient has a Rojas catheter in place. Musculoskeletal: Patient with persistent weakness to the extremities. She denies any pain to the extremities. Neurologic: Patient with persistent weakness and numbness to the extremities. She denies any headache or dizziness. (Jeff Talbert) Exam Results Vital Signs Date Time Temp Pulse Resp B/P Pulse Ox O2 Delivery O2 Flow Rate FiO2 11/25/16 11:36 16 11/25/16 11:26 96.1 59 134/60 96 11/25/16 10:49 21 11/24/16 19:13 Room Air 11/22/16 21:25 2.00 Intake and Output 11/24/16 11/24/16 11/25/16 08:00 16:00 00:00 Intake Total 480 ml 720 ml 680 ml Output Total 960 ml 600 ml 200 ml Balance -480 ml 120 ml 480 ml (Jeff Talbert) Physical Examination General: Patient is awake & alert, readily interacts but upset she isn't doing better, affect essentially normal though, no apparent distress. HEENT: Normocephalic, atraumatic. Neck: In [place] J cervical collar, midline cervical spine TTP, intact dressing to surgical wound, no JVD, trachea midline. Respiratory: CTAB w/o W/R/R, equal excursion, nonlaboured, on RA. Cardiovascular: S1S2 w/RRR w/o M/G/R, radial & pedal pulses 2+ bilaterally, cap refill < 2 sec, pedal edema 1+ bilaterally. Gastrointestinal: Abdomen soft, nontender, bowel sounds not appreciated. Skin: Warm, dry & intact except for intact posterior cervical spine surgical dressing intact w/o any shadowing, erythema or streaking, no evident discolouration, rashes, ulcerations or lesions. Musculoskeletal: CUMMINS to varying degree, no deformity or clubbing noted. Neurologic: AAOx3. Speech clear & appropriate. Follows commands w/o difficulty. Sensation diffusely diminished to light touch to all extremities. Strength 4 to 4+/5 to bilateral biceps, triceps & deltoids and 2+ to 3/5 hand intrinsics & wrist flexion/extension; with 2+ to 3/5 LLE better than RLE. ( Jeff Talbert) Medical Decision Making Impression and Plan Impression: 1. Development of increasing stenosis above previous C4 anterior- posterior cervical decompression site. Now with significant C2 3 and C3 4 stenosis with anterior and posterior compression. Positive increased spinal cord signal intensity at the C3 4 level. Question of infection versus inflammatory tissue at the posterior cervical operative site. No definite abscess or focal fluid collection. No elevation of white count. 2. Hypertension 3. Diabetes 4. Upper extremity DVT-on Xarelto Negative occult blood stool x3 Urine culture positive for Escherichia coli. Wound fluid w/negative stains, cultures in process. Patient with essentially stable neuro exam. Postoperative Diagnosis: (1) Cervical spinal stenosis (2) Cervical myelopathy C2 3 and C3 4 stenosis with spinal cord compression, following previous C4-C7 anterior and posterior decompression and fusion. Cervical myelopathy POD #3 () s/p : 1. C3 laminoplasty, titanium plate, composite allograft bone 2. Bilateral inferior C2 and superior C4 decompressive semi-laminectomy 3. Preparation of allograft bone for laminoplasty bone graft. Plan: Mobilise patient w/assistance. PT & OT eval & tx. Will follow how patient does in therapy before deciding on further surgery. Medical management per Hospitalist/Medicine, to include DVT UE tx. Will follow serous fluid cultures sent from surgery. Able to resume anticoagulation evening of . (Jeff Talbert) Attending Statement I have personally seen and examined the patient on the date of this note. Pertinent documentation and study results have been reviewed by the undersigned. I have personally developed the treatment plan and performed medical decision making. Agree with findings, exam, and treatment plan as noted above. The patient feels that she is still weaker in her upper and lower extremities with persistent decreased sensation versus last week. On my examination today, she does seem to be somewhat weaker in the lower extremities, mostly 2/5 diffuse, with mostly 3+ proximal and 2-3/5 distal upper extremity motor function. She is concerned that she is not able to ambulate, however she was not ambulating yet following her previous surgical procedures approximately 3 months ago even though she has not made significant overall improvement in her motor function postoperatively. Overall, she does seem to be losing some motor function despite the recent posterior decompression. Postoperative MRI reveals some improvement in the spinal cord compression at the upper cervical region, however still at least moderate canal stenosis. We will continue to observe over the weekend regarding her neurologic function. Consideration could be given to a more aggressive decompression with a fusion up to the C2 level, although it was hoped to avoid further fused segments by doing a more limited C3 laminoplasty with a partial C2 and C4 semi- hemilaminectomy. Discussed at length with the patient and she appears understand and agree with this plan. (Sav Eddy MD) Jeff Talbert Nov 25, 2016 17:31 Sav Eddy MD Nov 25, 2016 20:38
[2016-11-25] MEDS: MULTIVITAMINS/MINERALS THERAPEUTIC TAB PO SCH (22:28)
[2016-11-25] MEDS: GABAPENTIN 300 MG CAP PO SCH (22:29)
[2016-11-25] MEDS: EZETIMIBE 10 MG TAB PO SCH (22:29)
[2016-11-25] MEDS: INSULIN DETEMIR 100 UNITS/ML VIAL SQ SCH (22:34)
[2016-11-26] VITALS: BP 121/66; PULSE 84; RESP 17; TEMP 98.6; O2SAT 95
[2016-11-26] MEDS: FREE WATER PO SCH ×6 (03:03→22:27)
[2016-11-26 06:39] VITALS: O2SAT 95
[2016-11-26] MEDS: traMADol HCL 50 MG TAB PO PRN ×3 (07:04→20:59)
[2016-11-26] MEDS: LEVOTHYROXINE SODIUM 50 MCG TAB PO SCH (07:05)
[2016-11-26] MEDS: INSULIN NovoLIN REGULAR SUPPLEMENTAL SCALE SQ SCH ×4 (07:05→20:57)
[2016-11-26 07:43] VITALS: BP 123/59; PULSE 60; RESP 19; TEMP 98.4; O2SAT 92
[2016-11-26] MEDS: POLYETHYLENE GLYCOL 17 GM PKG PO SCH (08:13)
[2016-11-26] MEDS: TOLTERODINE TARTRATE 4 MG CAP LA PO SCH (08:13)
[2016-11-26] MEDS: DOCUSATE SODIUM 50 MG/SENNA 8.6 MG TAB PO SCH ×2 (08:13→20:58)
[2016-11-26] MEDS: FOLIC ACID 1 MG TAB PO SCH (08:13)
[2016-11-26] MEDS: FERROUS SULFATE 325 MG (65 MG ELEMENTAL IRON) TAB PO SCH ×2 (08:13→20:58)
[2016-11-26] MEDS: MAGNESIUM OXIDE 400 MG TAB PO SCH ×2 (08:14→20:59)
[2016-11-26] MEDS: NITROFURANTOIN MONOHYD MACROCR 100 MG CAP PO SCH ×2 (08:15→17:05)
[2016-11-26] MEDS: LISINOPRIL 20 MG TAB PO SCH (08:16)
[2016-11-26] MEDS: NIFEdipine 90 MG SUSTAINED RELEASE TAB PO SCH (08:16)
[2016-11-26] MEDS: CARVEDILOL 12.5 MG TAB PO SCH ×2 (08:16→20:59)
[2016-11-26 11:59] VITALS: BP 105/48; PULSE 62; RESP 19; TEMP 97.4; O2SAT 93
--- NOTE | 2016-11-26 14:20 | HHI.PR ---
Subjective Remarks Follow-up visit status post C-spine surgery and redo, bilateral lower extremity weakness, paresthesia, DVT left upper arm, urinary tract infection. Patient seen and examined today. She is sitting in a stretcher chair. States she continues to have bilateral lower extremity weakness unable to stand on her own , unable to ambulate, unable to transfer. States that her bilateral lower extremity is with numbness, but she is able to feel that she is being touched but when she stands up she has some problem, reports her legs "michael." Denies pain and discomfort. Denies SOB/ dyspnea. Denies chest pain, palpitations, headaches, dizziness. Denies fevers, chills, n/v/d. Denies dysuria. Objective Vitals Vital Signs Date Time Temp Pulse Resp B/P Pulse Ox O2 Delivery O2 Flow Rate FiO2 11/26/16 11:59 97.4 62 19 105/48 93 11/26/16 07:43 98.4 60 19 123/59 92 11/26/16 06:39 95 11/26/16 00:00 98.6 84 17 121/66 95 11/26/16 00:00 98.6 84 17 121/66 95 11/25/16 19:32 Room Air 11/25/16 19:00 99.3 80 16 122/58 92 11/25/16 15:08 97.9 66 17 134/75 93 I/O 11/25/16 11/25/16 11/25/16 11/26/16 11/26/16 11/26/16 07:00 15:00 23:00 07:00 15:00 23:00 Intake Total 480 ml 960 ml 480 ml Output Total 600 ml 1250 ml 500 ml 480 ml Balance -120 ml -290 ml -20 ml -480 ml Intake Oral 480 ml 960 ml 480 ml Output Urine Total 600 ml 1250 ml 500 ml 480 ml # Voids 0 # Bowel Movements 0 0 0 0 Result Diagram: 11/23/16 0735 11/23/16 0735 Imaging Last Impressions Cervical Spine MRI 11/23/16 0000 Signed Impressions: Service Date/Time: Wednesday, November 23, 2016 13:13 - CONCLUSION: Significant postsurgical changes as described above. There is persistent high cervical spinal stenosis at the C2-C3 and C3-C4 level Persistent signal changes are present in the cord at C4 and C6. Asad Rajan MD FACR Chest X-Ray 11/21/16 0000 Signed Impressions: Service Date/Time: Monday, November 21, 2016 18:52 - CONCLUSION: 1. Postoperative median sternotomy with CABG. Minimal basal atelectasis or scarring. Compa Desir MD Upper Extremity Ultrasound 11/18/16 1843 Signed Impressions: Service Date/Time: Friday, November 18, 2016 20:25 - CONCLUSION: Positive for deep venous thrombosis in the axillary and brachial veins. Juan Beltre MD Objective Remarks GENERAL: This is a well-nourished, well-developed patient, in no apparent distress. SKIN: Warm and dry. HEENT: Normocephalic. Pupils equal round and reactive. Nose without bleeding. Airway patent. NECK: Trachea midline. Supple. C-collar in place. CARDIOVASCULAR: Regular rate and rhythm without murmurs, gallops, or rubs. RESPIRATORY: Clear to auscultation. Breath sounds equal bilaterally. No wheezes , rales, or rhonchi. GASTROINTESTINAL: Abdomen soft, non-tender, nondistended. Bowel Sounds normoactive x4. : Rojas draining clear yellow urine. MUSCULOSKELETAL: Extremities without clubbing, cyanosis, bilateral lower extremity trace edema. NEUROLOGICAL: Awake and alert. Oriented to time, place, person. No focal neuro deficit. No lower extremity weakness and paresthesia. Normal speech. Procedures Procedure: 1. C3 laminoplasty, titanium plate, composite allograft bone 2. Bilateral inferior C2 and superior C4 decompressive semi-laminectomy 3. Preparation of allograft bone for laminoplasty bone graft. A/P Problem List: (1) Cervical spinal stenosis ICD Code: M48.02 Status: Acute (2) Cervical disc disease with myelopathy ICD Code: M50.00 Status: Acute (3) HTN (hypertension) ICD Code: I10 Status: Chronic (4) Leg weakness, bilateral ICD Code: R29.898 Status: Acute (5) Left upper extremity deep vein thrombosis ICD Code: I82.622 Status: Acute (6) Cough ICD Code: R05 Status: Resolved Assessment and Plan This is an 81-year-old female patient with past medical history which includes diabetes mellitus, hypertension, hyperlipidemia, coronary artery disease status post coronary artery bypass graft and DVT upper extremity. S/P C-spine surgery 08/08/2016 and 08/15/2016. Patient now with MRI which reveals new area of upper cervical stenosis with cord compression and question of infection. Patient also has ultrasound left upper extremity which shows DVT of axillary and brachial veins. We've been consulted for assistance with medical management and heparin bridge. Cervical stenosis with lower weakness/paresthesia. Status post surgery but continues to have weakness and paresthesia. Repeat MRI shows persistent cervical stenosis. Continue physical therapy, wound care, incentive spirometry and pain management. - Patient continues to have mobility problems, unable to stand, transfer, ambulate. She is accepted in [facility]. Plan to DC patient to skilled rehab if cleared with neurosurgeon. As per patient she is unable to qualify for inpatient rehabilitation at [place]. DVT left upper arm Xarelto on hold. Neurosurgery wants to put anticoagulation on hold for 72 hrs after RUSTY drain is removed 11/24. May restart Xarelto on 11/27/16 Hypothyroidism continue home Synthroid 50 mcg by mouth daily dose. Diabetes mellitus continue home Levemir 12 units subcutaneous daily at bedtime and preprandial NovoLog 3 units subcutaneous before meals Monitor Accu-Cheks before meals at bedtime with sliding scale insulin coverage. Stable Hypertension- stable Continue home medications which include carvedilol ER 40 mg by mouth daily, lisinopril 40 mg by mouth daily and nifedipine 90 mg by mouth daily Hyperlipidemia stable Hold Crestor 10 minutes by mouth daily at bedtime per neurosurgery Continue Zetia 10 mg by mouth daily at bedtime Escherichia coli UTI. Continue Macrobid for 7 days. Discontinue Rojas catheter as soon as possible - Patient continues to have problems with mobility Postoperative anemia secondary to acute blood loss. Monitor DVT prophylaxis with SCD. Discharge Planning Plan to DC at [facility] if cleared by Neurosurgeon. Beau Campos Nov 26, 2016 14:20
--- NOTE | 2016-11-26 14:40 | HHI.NSPN ---
History Chief Complaint: Having some neck pain. Interval History The 1-year-old female status post previous C4-7 anterior posterior decompression and fusion for severe spinal stenosis with chronic severe myelopathy and severe quadriparesis. The patient initially improved postoperatively and was doing well at her final postoperative appointment last week. She then abruptly developed recurrent increased weakness in numbness in the upper and lower extremities and a follow- up MRI revealed new progressive stenosis at the C2 3 and C3 4 levels. In an attempt to avoid further fusion, she underwent a C3 laminoplasty and partial C2 and C4 semi-hemilaminectomy on 11/18/16. After 3 days postoperative, she felt that her strength was deteriorating again and a follow-up MRI reveals at least moderate persistent stenosis despite the C2-C4 surgical decompression. Exam Results Vital Signs Date Time Temp Pulse Resp B/P Pulse Ox O2 Delivery O2 Flow Rate FiO2 11/26/16 11:59 97.4 62 19 105/48 93 11/25/16 19:32 Room Air 11/25/16 10:49 21 11/22/16 21:25 2.00 Intake and Output 11/25/16 11/25/16 11/26/16 08:00 16:00 00:00 Intake Total 480 ml 960 ml 480 ml Output Total 600 ml 1250 ml 500 ml Balance -120 ml -290 ml -20 ml Physical Examination She is sitting up in a chair. Appears comfortable. Respirations are clear and nonlabored Pulses regular Cervical collar in place Posterior neck dressing dry Speech is clear and appropriate Moderate decreased sensation light touch diffuse in the upper and lower extremities Strength is grossly 4/5 proximal, 2+-3/5 distal upper extremities with mostly 2/ 5 diffuse in the proximal and 1-2/5 distal lower extremities. Medical Decision Making Impression and Plan Impression: 1. Patient seems to have some deterioration in lower extremity motor function over the past few days. Plan: Findings were discussed with the patient. Discussed with medicine service Hold discharge pending further evaluation CT scan cervical spine requested and pending in order to better determine the bony anatomy of the neck in regards to further instrumentation placement or fusion. Anticipate that she will require further posterior decompressive procedure with fusion in order to more fully decompress the spinal cord. Sav Eddy MD Nov 26, 2016 14:40
[2016-11-26 15:37] VITALS: BP 99/54; PULSE 62; RESP 19; TEMP 98.8; O2SAT 97
[2016-11-26 20:00] VITALS: BP 135/58; PULSE 73; RESP 20; TEMP 98.1; O2SAT 92
[2016-11-26] MEDS: EZETIMIBE 10 MG TAB PO SCH (20:58)
[2016-11-26] MEDS: GABAPENTIN 300 MG CAP PO SCH (20:58)
[2016-11-26] MEDS: MULTIVITAMINS/MINERALS THERAPEUTIC TAB PO SCH (20:58)
[2016-11-26] MEDS: INSULIN DETEMIR 100 UNITS/ML VIAL SQ SCH (20:58)
[2016-11-27] VITALS (8 sets, daily range): BP systolic 119–171; BP diastolic 44–66; PULSE 60–87; RESP 16–18; TEMP 97.4–99.3; O2SAT 90–97
[2016-11-27] MEDS: FREE WATER PO SCH ×7 (03:12→23:54)
[2016-11-27] MEDS: LEVOTHYROXINE SODIUM 50 MCG TAB PO SCH (06:09)
[2016-11-27] MEDS: traMADol HCL 50 MG TAB PO PRN ×2 (06:09→22:35)
[2016-11-27] MEDS: INSULIN NovoLIN REGULAR SUPPLEMENTAL SCALE SQ SCH ×4 (06:10→22:43)
[2016-11-27] MEDS: TOLTERODINE TARTRATE 4 MG CAP LA PO SCH (08:48)
[2016-11-27] MEDS: FOLIC ACID 1 MG TAB PO SCH (08:48)
[2016-11-27] MEDS: MAGNESIUM OXIDE 400 MG TAB PO SCH ×2 (08:49→22:34)
[2016-11-27] MEDS: FERROUS SULFATE 325 MG (65 MG ELEMENTAL IRON) TAB PO SCH ×2 (08:49→22:34)
[2016-11-27] MEDS: NITROFURANTOIN MONOHYD MACROCR 100 MG CAP PO SCH ×2 (08:49→18:59)
[2016-11-27] MEDS: DOCUSATE SODIUM 50 MG/SENNA 8.6 MG TAB PO SCH ×2 (08:50→22:34)
[2016-11-27] MEDS: LISINOPRIL 20 MG TAB PO SCH (08:53)
[2016-11-27] MEDS: NIFEdipine 90 MG SUSTAINED RELEASE TAB PO SCH (08:53)
[2016-11-27] MEDS: POLYETHYLENE GLYCOL 17 GM PKG PO SCH (08:53)
[2016-11-27] MEDS: CARVEDILOL 12.5 MG TAB PO SCH ×2 (08:53→22:45)
--- NOTE | 2016-11-27 09:15 | RADRPT ---
EXAM DATE/TIME: 11/27/2016 08:24 [facility] COMPARISON: SPINE CERVICAL LTD (AP&LAT), August 15, 2016, 14:52. MRI CERVICAL SPINE W & W/O CONTRAST, August 10 7, 10:03. SPINE CERVICAL LTD (AP&LAT), August 08, 2016, 11:51. MRI CERVICAL SPINE W & W/O CONTRAST, August 03, 2016, 11:28. MRI CERVICAL SPINE W & W/O CONTRAST, November 18, 2016, 19:50. MRI CERVICAL SP INE W & W/O CONTRAST, November 23, 2016, 13:13. INDICATIONS : History of cord compression at C4-5 and C6-7. Patient is status post anterior fusion at the C4-5 and C6-7 levels in July. Patient is also status post posterior fusion at the C4 through C7 levels in August . Patient developed spinal stenosis at the C2 and C3 levels. Patient is status post additional shrimp peeling machine tender ior fusion. The most recent MRI demonstrated persistent spinal stenosis at C2-3 and C3-4.. RADIATION DOSE: 42.99 CTDIvol (mGy) MEDICAL HISTORY : Hepatitis B. Hypertension. Spinal stenosis. SURGICAL HISTORY : Cervical stenosis. ENCOUNTER: Subsequent ACUITY: 1 day PAIN SCALE: 3/10 LOCATION: Bilateral neck TECHNIQUE: Volumetric scanning of the cervical spine was performed. Multiplanar reconstructions in the sagittal, coronal and oblique axial planes were performed. Using automated exposure control and adjustment o f the mA and/or kV according to patient size, radiation dose was kept as low as reasonably achievable to obtain optimal diagnostic quality images. DICOM format image data is available electronically f or review and comparison. FINDINGS: VERTEBRAE: Normal vertebral body height. DISCS: The patient is again noted a status post anterior fusion at C4-5 and C6-7 levels with intact anterior screw-plate fixation devices. Bone grafting material and markers are noted in the interspaces. The a lignment is anatomic. The patient is also status post posterior fusion at the C4-C7 level bilaterally with bilateral screws and posterior fixation rods. The patient is status post bilateral partial lami nectomies at the C2 level with removal of the inferior portions of the lamina bilaterally. There are also postsurgical changes at the C3 level involving the left lamina at the C3 level with a thin screw -plate fixation device on the left and metallic plug like device in place. A portion of the left post erior pedicle has been removed along the left vertebral foramina. ALIGNMENT: No evidence of subluxation. C2-C3: There is a posterior central and parasagittal broad-based protrusion with mass effect on the thecal s ac and apparent mass effect on the cord which is poorly delineated. The neural foramina are patent. T his is best seen on series 603 image 20. The patient is status post bilateral partial laminectomy at the L2 level with removal of the inferior portions of the lamina. C3-C4: Apparent annular disc bulge versus broad-based protrusion with mass effect on the anterior thecal sac which is poorly delineated due to streak artifact. There is mild narrowing of the right neural ann luis. Postsurgical changes are noted involving the left lamina screw-plate fixation device and metalli c plug like area. C4-C5: Status post posterior laminectomy with fixation screws and posterior fixation rods. The thecal sac is patent and decompressed. The neural foramina are patent. There is streak artifact from the hardware limiting visualization. C5-C6: Post surgical changes involving the posterior elements with patent appearing thecal sac. There is str eak artifact limiting visualization. The neural foramina are patent. C6-C7: Status post anterior fusion with screw-plate fixation device and streak artifact. The thecal sac appe ars preserved. The neural foramina are patent bilaterally. There is streak artifact limiting visualiz ation. C7-T1: The bony spinal canal is normal in size. No evidence of disc bulge or herniation. The neural forami na are bilaterally patent. CONCLUSION: 1. Extensive post surgical changes as described above. There is limited visualization of the cervical cord due to streak artifact. 2. Central and left parasagittal blood based protrusion at the C2-3 level with apparent mass effect o n the cord. 3. Annular disc bulge at C3-4. Shaheed Braxton MD on November 27, 2016 at 8:44 Board Certified Radiologist. This report was verified electronically.
--- NOTE | 2016-11-27 12:50 | HHI.NSPN ---
(Jeff Talbert) History Chief Complaint: No feeling to the legs. (Jeff Talbert) Interval History 11/18: 81-year-old female previously admitted to [facility] through the emergency room July 2016 with a 7 month history of progressive upper extremity and lower extremity weakness and sensory loss with inability to ambulate. Initial imaging studies revealed severe mid cervical stenosis with significant signal intensity changes within the cord. Patient underwent anterior and posterior decompression as follows: 08/08/16 C4 5 and C6 7 anterior cervical discectomy, resection herniated nucleus pulposus and posterior osteophytic disc complexes-microtechnique. C4 5 and C6 7 anterior interbody fusion with composite allograft bone. C4 5 and C6 7 anterior cervical instrumentation 08/15/16 - bilateral C4, C5, C6, C7 decompressive semi-laminectomy, medial facetectomy for dorsal spinal cord decompression with bilateral C4-C7 posterior instrumentation, bilateral C7 pedicle screw fixation and bilateral C4-C7 posterior fusion with local autograft and allograft bone The patient was seen in the office for follow-up within the past week and a postoperative CT scan revealed good incorporation of the graft and instrumentation. The patient was doing very well at that time was significant improvement in her severe preoperative quadriparesis, starting to ambulate with a walker. Patient [facility] contacted neurosurgery office today indicating increased numbness in the upper extremities today. Patient brought into the emergency room for further evaluation with MRI scan accomplished which reveals new areas of upper cervical stenosis with cord compression and question of infection. 11/19: doing well, stable overnight. no new complaints currently 11/20: says she had a very good night, very happy with her care. no new complaints. awaiting for surgery tu11/21: The patient is doing well when seen this afternoon. She complained of neck pain then said it was to both shoulders. She had no other complaints. She did say that her legs buckle under her. 11/22: Patient went for a C3 laminoplasty w/titanium plate & composite allograft bone and bilateral inferior C2 & superior C4 decompressive semi-laminectomy. Post-operatively the patient did well and was returned to her room on a med/ surg floor. 11/23: This morning the patient states she is in pain. Nursing is in the room and has her morning meds including tramadol. She readily interacts, smiles and jokes. She does state the numbness and weakness to her legs is worse than before surgery. 11/24: The patient is doing well when seen and states she isn't in any pain when seen. She states that the numbness and weakness to the extremities is the same. 11/25: The patient states that she isn't doing good today. She is having some neck pain and she is upset that she was not able to take any steps with Physical Therapy today but was to yesterday. She also stated she was nauseated this morning and did endorse not having a bowel movement for a couple days. 11/27: The patient states she has no feeling to the legs today. She had just been placed back in bed from the cardiac chair when seen. (Jeff Talbert ) Exam Results Vital Signs Date Time Temp Pulse Resp B/P Pulse Ox O2 Delivery O2 Flow Rate FiO2 11/27/16 10:45 93 21 11/27/16 07:03 97.5 60 16 171/66 11/26/16 18:54 Room Air Intake and Output 11/26/16 11/26/16 11/26/16 07:59 15:59 23:59 Intake Total 600 ml 480 ml Output Total 480 ml 900 ml 900 ml Balance -480 ml -300 ml -420 ml (Jeff Talbert) Physical Examination She is laying in bed after having been in the cardiac chair. Appears comfortable. Respirations are clear and nonlabored Pulses regular Cervical collar in place Posterior neck dressing dry Speech is clear and appropriate Moderate decreased sensation light touch diffuse in the upper and lower extremities with lower thoracic symptoms. Strength is grossly 5/5 proximally & 4/5 distally to upper extremities and 4/5 proximally & 3/5 distally to the lower extremities. (Jeff Talbert) Lab, Micro, Other Results Allergies Coded Allergies Type Severity Reaction Last Updated Verified Morphine Allergy Severe Shortness of Breath 11/11/16 Yes Neosporin Allergy Severe Shortness of Breath 11/11/16 Yes Neomycin Allergy Unknown RASHES 11/18/16 Yes Penicillin Allergy Unknown RASHES 11/18/16 Yes Promethazine Allergy Unknown UNKNOWN 11/18/16 Yes Recent Impressions Cervical Spine CT 11/26/16 0000 Signed Impressions: Service Date/Time: Sunday, November 27, 2016 08:24 - CONCLUSION: 1. Extensive post surgical changes as described above. There is limited visualization of the cervical cord due to streak artifact. 2. Central and left parasagittal blood based protrusion at the C2-3 level with apparent mass effect on the cord. 3. Annular disc bulge at C3-4. Shaheed Braxton MD 05:59 17:59 05:59 17:59 05:59 17:59 Intake Total 1160 ml 960 ml 480 ml 600 ml 480 ml 960 ml Output Total 800 ml 1250 ml 980 ml 900 ml 900 ml 1150 ml Balance 360 ml -290 ml -500 ml -300 ml -420 ml -190 ml Intake Oral 1160 ml 960 ml 480 ml 600 ml 480 ml 960 ml Output Urine Total 800 ml 1250 ml 980 ml 900 ml 900 ml 1150 ml # Voids 0 # Bowel Movements 0 0 0 1 1 Vital Signs Date Time Temp Pulse Resp B/P Pulse Ox O2 Delivery O2 Flow Rate FiO2 11/27/16 10:45 93 21 11/27/16 07:03 97.5 60 16 171/66 97 11/27/16 06:44 93 11/27/16 04:00 98.7 68 18 128/56 93 11/27/16 00:00 99.3 72 18 136/63 90 11/27/16 00:00 99.3 72 18 136/63 90 11/26/16 20:00 98.1 73 20 135/58 92 11/26/16 18:54 Room Air 11/26/16 15:37 98.8 62 19 99/54 97 11/26/16 11:59 97.4 62 19 105/48 93 11/26/16 07:43 98.4 60 19 123/59 92 11/26/16 06:39 95 11/26/16 00:00 98.6 84 17 121/66 95 11/26/16 00:00 98.6 84 17 121/66 95 11/25/16 19:32 Room Air 8/11/17 19:00 99.3 80 16 122/58 92 11/25/16 15:08 97.9 66 17 134/75 93 11/25/16 11:36 16 11/25/16 11:26 96.1 59 17 134/60 96 11/25/16 10:49 95 21 11/25/16 09:43 16 11/25/16 07:47 97.6 60 17 165/75 96 11/25/16 04:00 98.2 72 16 125/64 95 11/25/16 00:00 97.8 70 16 118/58 95 11/24/16 19:13 Room Air 11/24/16 19:00 98.6 74 18 111/56 94 11/24/16 15:15 97.3 59 17 98/42 94 (Jeff Talbert) Medical Decision Making Impression and Plan Impression: 1. Development of increasing stenosis above previous C4 anterior- posterior cervical decompression site. Now with significant C2 3 and C3 4 stenosis with anterior and posterior compression. Positive increased spinal cord signal intensity at the C3 4 level. Question of infection versus inflammatory tissue at the posterior cervical operative site. No definite abscess or focal fluid collection. No elevation of white count. 2. Hypertension 3. Diabetes 4. Upper extremity DVT-on Xarelto Negative occult blood stool x3 Urine culture positive for Escherichia coli. Wound fluid w/negative stains, cultures w/o any growth thus far. MRI cervical spine demonstrated at least moderate persistent stenosis despite the C2-C4 surgical decompression. CT cervical spine demonstrated central & left parasagittal blood- based protrusion at the C2-3 level w/mass effect on the cord and an annular disc bulge at C3-4. A review of an MRI thoracic spine done demonstrated moderates spinal stenosis at the T10-11 level, also noted was minimal anterior wedging of the T12 vertebral body which was nonacute. Patient with improved motor strength but does show lower thoracic symptoms. Postoperative Diagnosis: (1) Cervical spinal stenosis (2) Cervical myelopathy C2 3 and C3 4 stenosis with spinal cord compression, following previous C4-C7 anterior and posterior decompression and fusion. Cervical myelopathy POD #5 () s/p : 1. C3 laminoplasty, titanium plate, composite allograft bone 2. Bilateral inferior C2 and superior C4 decompressive semi-laminectomy 3. Preparation of allograft bone for laminoplasty bone graft. Plan: Mobilise patient w/assistance. PT & OT eval & tx. Medical management per Hospitalist/Medicine, to include DVT UE tx. Will follow serous fluid cultures sent from surgery. Will continue to hold anticoagulation pending possible surgery. MRI thoracic & lumbar spines today. (Jeff Talbert) Attending Statement I have personally seen and examined the patient on the date of this note. Pertinent documentation and study results have been reviewed by the undersigned. I have personally developed the treatment plan and performed medical decision making. Agree with findings, exam, and treatment plan as noted above. On examination today, the patient seems to have a sensory level in the lower thoracic-upper lumbar region. She initially states that she cannot feel anything at all in her legs, but later when pinched withdraws her legs vertically and flinches, complaining of pain. She continues to complain of numbness in the upper extremities, although seems somewhat improved today compared to the last 2 or 3 days. Her upper extremity strength is quite good on examination today, mostly 5/5 proximal and 4/5 distal including hand intrinsics. Lower extremity strength is mostly 3/5 proximal and 4-5/5 distal. This all seems improved compared to the past few days. The patient's CT scan of the cervical spine was reviewed. She still has some dorsal canal impingement at the C2 and C4 lamina regions although the C3 laminoplasty appears to be yielding adequate decompression. I had a long discussion with the patient today on 11/27/16 regarding the findings and treatment options. Despite her improved motor function, she is still convinced that she is doing worse in the past week. Previous thoracic spine MRI was reviewed and she did not have significant lower thoracic stenosis. It would be reasonable to repeat the thoracic and lumbar MRI scan to make certain that there is not significant progressive stenosis at the thoracolumbar region. If no significant abnormality is noted on the follow-up MRI images, then a revision total 2 and L4 laminectomy could be performed. She does not appear to have good bone substance or residual bone to place C2 and C3 posterior instrumentation, making a complete laminectomy and fusion a somewhat less desirable treatment option for her. (Sav Eddy MD) Jeff Talbert Nov 27, 2016 12:50 Sav Eddy MD Nov 27, 2016 13:28
--- NOTE | 2016-11-27 13:00 | RADRPT ---
EXAM DATE/TIME: 11/27/2016 12:28 [facility] COMPARISON: MRI THORACIC SPINE W & W/O CONTRAST, August 03, 2016, 11:28. INDICATIONS : Radiculopathy. History of spinal stenosis at the T10-11 level. MEDICAL HISTORY : Hypertension. Diabetes mellitus type 2. SURGICAL HISTORY : Fusion, cervical. Discectomy, lumbar. CABG ENCOUNTER: Initial ACUITY: 1 week PAIN SCORE: 0/10 LOCATION: [facility] TECHNIQUE: Multiplanar multisequence MRI of the thoracic spine was performed. FINDINGS: VERTEBRA: There is stable compression fracture deformities involving the T4 and T12 vertebral bodies with invag ination of the inferior endplate of T4 and superior endplate of T12. The other vertebral bodies remai n intact. The patient is status post kyphoplasty at the T12 level with low signal material again note d. The disc spaces remain preserved. ALIGNMENT: Normal. CORD: Normal position and configuration. T1-T2: Normal. T2-T3: There is a mild disc bulge with mild flattening of the anterior thecal sac. T3-T4: There is a mild disc bulge with mild flattening of the anterior thecal sac. T4-T5: The thecal sac has a normal diameter. No evidence of disc bulge or protrusion. T5-T6: There is a small posterior central protrusion with mild mass effect on the anterior thecal sac. This is unchanged. T6-T7: The thecal sac has a normal diameter. No evidence of disc bulge or protrusion. T7-T8: There is a mild disc bulge with mild flattening the anterior thecal sac without significant change. T8-T9: The thecal sac has a normal diameter. No evidence of disc bulge or protrusion. T9-T10: The thecal sac has a normal diameter. No evidence of disc bulge or protrusion. T10-T11: Annular disc bulge again noted with mild flattening the anterior thecal sac. There are degenerative c hanges involving the posterior elements and there is moderate central canal stenosis again noted with out significant change. On the AP view the residual AP diameter of the canal measures approximately 8 mm and the residual transverse diameter measures approximately 8-9 mm. T11-T12: There is a mild annular disc bulge with mild flattening of the anterior thecal sac and no focal protr usion. This is unchanged. T12-L1: The thecal sac has a normal diameter. No evidence of disc bulge or protrusion. CONCLUSION: 1. Moderate central canal stenosis again noted at the T.10-11 level without significant change. 2. Small posterior disc protrusion at the T5-6 level with mild mass effect on the anterior thecal sac . This is not significantly changed. 3. Stable mild disc bulges. 4. Stable compression fracture deformities of the T4 and T12 vertebral bodies. Shaheed Braxton MD on November 27, 2016 at 12:52 Board Certified Radiologist. This report was verified electronically.
--- NOTE | 2016-11-27 13:22 | RADRPT ---
EXAM DATE/TIME: 11/27/2016 12:28 [facility] COMPARISON: No previous studies available for comparison. INDICATIONS : Radiculopathy. MEDICAL HISTORY : Diabetes mellitus type 2. Hypertension. SURGICAL HISTORY : Fusion, cervical. Discectomy, lumbar. CABG ENCOUNTER: Initial ACUITY: 1 week PAIN SCORE: 0/10 LOCATION: [facility] TECHNIQUE: Multiplanar multisequence MRI of the lumbar spine was performed without contrast. FINDINGS: Alignment: Intact. Osseous structures and facet joints: Post surgical changes following posterior fusion from L3-S1 are identified. Significant susceptibilit y artifact is causing distortion of the thecal contents and the neural foramina. Moderate compression deformities are noted of T12 and L2. Low signal intensity material is identified within these 2 vertebral bodies characteristic of prior augmentation. No acute bony abnormalities noted. Intervertebral disc spaces: Moderate degenerative disc disease is noted at L1-2. There is disc space narrowing without evidence o f disc herniation. Schmorl's node is identified along the superior endplate of L2. There is no free f oraminal encroachment or spinal stenosis. At L2-3 there is broad-based disc bulge with mild foraminal encroachment. Moderate central spinal jacek nosis is identified. The L3-4, L4-5 and L5-S1 disc are partially obscured by metallic artifact. Neurologic structures: Central crowding and mild compression of the nerve roots within the thecal sac is noted at the L2-3 l evel. Conus medullaris normally situated. CONCLUSION: 1. Status post lumbar fusion from L3-S1. 2. Significant artifact through the fused level; nerve root compression or spinal stenosis cannot be evaluated. 3. Moderate central spinal stenosis at L2-3 T2 broad-based disc bulge and hypertrophic facet arthropa thy. 4. Status post vertebral augmentation at T12 and L2. 5. No acute bony abnormalities. Xavi Loco MD on November 27, 2016 at 13:12 Board Certified Radiologist. This report was verified electronically.
--- NOTE | 2016-11-27 14:17 | HHI.PR ---
Subjective Remarks Follow-up visit status post C-spine surgery and redo, bilateral lower extremity weakness, paresthesia, DVT left upper arm, urinary tract infection. Patient seen and examined today. She is sitting in a stretcher chair. States she is doing well except for she needs to be pulled up because her bottom area is hurting her. She feels that she is worse compared to previous week. Discussed with patient plan for rehabilitation which she has agreed. Also discussed possible surgical intervention by Dr. Eddy before her rehabilitation will depend upon Dr. Eddy's recommendation to either do surgical procedure prior to rehabilitation or just to rehabilitation for now. Continues to complain of bilateral lower extremity weakness and able to stand up and transfer to bed. Complaints of continued paresthesia bilateral lower extremity, feeling of "tingling sensation." Otherwise, denies SOB/ dyspnea. Denies chest pain, palpitations, headaches, dizziness. Denies fevers, chills, n/v/d. Objective Vitals Vital Signs Date Time Temp Pulse Resp B/P Pulse Ox O2 Delivery O2 Flow Rate FiO2 11/27/16 10:45 93 21 11/27/16 07:03 97.5 60 16 171/66 97 11/27/16 06:44 93 11/27/16 04:00 98.7 68 18 128/56 93 11/27/16 00:00 99.3 72 18 136/63 90 11/27/16 00:00 99.3 72 18 136/63 90 11/26/16 20:00 98.1 73 20 135/58 92 11/26/16 18:54 Room Air 11/26/16 15:37 98.8 62 19 99/54 97 I/O 11/26/16 11/26/16 11/26/16 11/27/16 11/27/16 11/27/16 07:00 15:00 23:00 07:00 15:00 23:00 Intake Total 600 ml 480 ml 960 ml Output Total 480 ml 900 ml 900 ml 1150 ml Balance -480 ml -300 ml -420 ml -190 ml Intake Oral 600 ml 480 ml 960 ml Output Urine Total 480 ml 900 ml 900 ml 1150 ml # Bowel Movements 0 1 1 Result Diagram: 11/23/16 0735 11/23/16 0735 Imaging Last Impressions Thoracic Spine MRI 11/27/16 0000 Signed Impressions: Service Date/Time: Sunday, November 27, 2016 12:28 - CONCLUSION: 1. Moderate central canal stenosis again noted at the T.10-11 level without significant change. 2. Small posterior disc protrusion at the T5-6 level with mild mass effect on the anterior thecal sac. This is not significantly changed. 3. Stable mild disc bulges. 4. Stable compression fracture deformities of the T4 and T12 vertebral bodies. Shaheed Braxton MD Lumbar Spine MRI 11/27/16 0000 Signed Impressions: Service Date/Time: Sunday, November 27, 2016 12:28 - CONCLUSION: 1. Status post lumbar fusion from L3-S1. 2. Significant artifact through the fused level; nerve root compression or spinal stenosis cannot be evaluated. 3. Moderate central spinal stenosis at L2-3 T2 broad-based disc bulge and hypertrophic facet arthropathy. 4. Status post vertebral augmentation at T12 and L2. 5. No acute bony abnormalities. Xavi Loco MD Cervical Spine CT 11/26/16 0000 Signed Impressions: Service Date/Time: Sunday, November 27, 2016 08:24 - CONCLUSION: 1. Extensive post surgical changes as described above. There is limited visualization of the cervical cord due to streak artifact. 2. Central and left parasagittal blood based protrusion at the C2-3 level with apparent mass effect on the cord. 3. Annular disc bulge at C3-4. Shaheed Braxton MD Cervical Spine MRI 11/23/16 0000 Signed Impressions: Service Date/Time: Wednesday, November 23, 2016 13:13 - CONCLUSION: Significant postsurgical changes as described above. There is persistent high cervical spinal stenosis at the C2-C3 and C3-C4 level Persistent signal changes are present in the cord at C4 and C6. Asad Rajan MD FACR Chest X-Ray 11/21/16 0000 Signed Impressions: Service Date/Time: Monday, November 21, 2016 18:52 - CONCLUSION: 1. Postoperative median sternotomy with CABG. Minimal basal atelectasis or scarring. Compa Desir MD Upper Extremity Ultrasound 11/18/16 [id number] Signed Impressions: Service Date/Time: Friday, November 18, 2016 20:25 - CONCLUSION: Positive for deep venous thrombosis in the axillary and brachial veins. Juan Beltre MD Objective Remarks GENERAL: This is a well-nourished, well-developed patient, in no apparent distress. SKIN: Warm and dry. HEENT: Normocephalic. Pupils equal round and reactive. Nose without bleeding. Airway patent. NECK: Trachea midline. Supple. C-collar in place. CARDIOVASCULAR: Regular rate and rhythm without murmurs, gallops, or rubs. RESPIRATORY: Clear to auscultation. Breath sounds equal bilaterally. No wheezes , rales, or rhonchi. GASTROINTESTINAL: Abdomen soft, non-tender, nondistended. Bowel Sounds normoactive x4. : Rojas draining clear yellow urine. MUSCULOSKELETAL: Extremities without clubbing, cyanosis, bilateral lower extremity trace edema. NEUROLOGICAL: Awake and alert. Oriented to time, place, person. No lower extremity weakness and paresthesia. Normal speech. Procedures Procedure: 1. C3 laminoplasty, titanium plate, composite allograft bone 2. Bilateral inferior C2 and superior C4 decompressive semi-laminectomy 3. Preparation of allograft bone for laminoplasty bone graft. A/P Problem List: (1) Cervical spinal stenosis ICD Code: M48.02 Status: Acute (2) Cervical disc disease with myelopathy ICD Code: M50.00 Status: Acute (3) HTN (hypertension) ICD Code: I10 Status: Chronic (4) Leg weakness, bilateral ICD Code: R29.898 Status: Acute (5) Left upper extremity deep vein thrombosis ICD Code: I82.622 Status: Acute (6) Cough ICD Code: R05 Status: Resolved Assessment and Plan This is an 81-year-old female patient with past medical history which includes diabetes mellitus, hypertension, hyperlipidemia, coronary artery disease status post coronary artery bypass graft and DVT upper extremity. S/P C-spine surgery 08/08/2016 and 08/15/2016. MRI which reveals new area of upper cervical stenosis with cord compression and question of infection. Patient also has ultrasound left upper extremity which shows DVT of axillary and brachial veins. We've been consulted for assistance with medical management and heparin bridge. Cervical stenosis with lower weakness/paresthesia. Status post surgery but continues to have weakness and paresthesia. Repeat MRI shows persistent cervical stenosis. Continue physical therapy, wound care, incentive spirometry and pain management. - Patient continues to have mobility problems, unable to stand, transfer, ambulate. - She is accepted in [facility] for [facility]. Plan to DC patient to skilled rehab if cleared with neurosurgeon. As per patient she is unable to qualify for inpatient rehabilitation at [facility]. - As per neurosurgery, they have reviewed previous MRI which showed no significant lower thoracic stenosis. Reasonable to repeat the thoracic and lumbar MRI scan to make certain that there is no significant progressive stenosis at the thoracolumbar region, if no significant abnormality is noted on the follow-up MRI images, the revision total 2 and L for laminectomy could be performed. She does not appear to have a good bone substance or residual bone to place C2 and C3 posterior instrumentation, making a complete laminectomy and fusion is somewhat less desirable treatment plan option for her. - Hold of xarelto for now. Spoke with Dr. Eddy. Plan for surgery tomorrow PM. DVT left upper arm Xarelto on hold. Neurosurgery wants to put anticoagulation on hold for 72 hrs after RUSTY drain is removed 11/24. May restart Xarelto on 11/29/16 from 11/27. - Surgical intervention will be done that Xarelto will continue to be held for now. Hypothyroidism continue home Synthroid 50 mcg by mouth daily dose. Diabetes mellitus continue home Levemir 12 units subcutaneous daily at bedtime and preprandial NovoLog 3 units subcutaneous before meals - Monitor Accu-Cheks before meals at bedtime with sliding scale insulin coverage. Stable. - Hold Levemir cortney, pt. will be NPO Hypertension- stable - Continue home medications which include carvedilol ER 40 mg by mouth daily , lisinopril 40 mg by mouth daily and nifedipine 90 mg by mouth daily Hyperlipidemia stable - Hold Crestor 10 minutes by mouth daily at bedtime per neurosurgery - Continue Zetia 10 mg by mouth daily at bedtime Escherichia coli UTI. Continue Macrobid for 7 days. - Discontinue Rojas catheter as soon as possible - Patient continues to have problems with mobility Postoperative anemia secondary to acute blood loss. Monitor DVT prophylaxis with SCD. Discharge Planning Plan to DC at [facility] if cleared by Neurosurgeon. Beau Campos Nov 27, 2016 2:17 pm
[2016-11-27] MEDS: EZETIMIBE 10 MG TAB PO SCH (22:34)
[2016-11-27] MEDS: GABAPENTIN 300 MG CAP PO SCH (22:34)
[2016-11-27] MEDS: MULTIVITAMINS/MINERALS THERAPEUTIC TAB PO SCH (22:34)
[2016-11-27] MEDS: ACETAMINOPHEN 325 MG TAB PO PRN (22:36)
[2016-11-27] MEDS: INSULIN DETEMIR 100 UNITS/ML VIAL SQ SCH (22:44)
[2016-11-28] VITALS (10 sets, daily range): BP systolic 123–170; BP diastolic 52–69; PULSE 55–73; RESP 16–17; TEMP 97.1–98.6; O2SAT 95–100
[2016-11-28] MEDS: traMADol HCL 50 MG TAB PO PRN ×2 (06:34→22:27)
[2016-11-28] MEDS: INSULIN NovoLIN REGULAR SUPPLEMENTAL SCALE SQ SCH ×3 (06:34→21:00)
[2016-11-28] MEDS: LEVOTHYROXINE SODIUM 50 MCG TAB PO SCH (06:34)
[2016-11-28] MEDS: FERROUS SULFATE 325 MG (65 MG ELEMENTAL IRON) TAB PO SCH ×2 (08:42→21:00)
[2016-11-28] MEDS: FOLIC ACID 1 MG TAB PO SCH (08:42)
[2016-11-28] MEDS: NITROFURANTOIN MONOHYD MACROCR 100 MG CAP PO SCH ×2 (08:43→18:00)
[2016-11-28] MEDS: DOCUSATE SODIUM 50 MG/SENNA 8.6 MG TAB PO SCH ×2 (08:43→21:00)
[2016-11-28] MEDS: MAGNESIUM OXIDE 400 MG TAB PO SCH ×2 (08:43→21:00)
[2016-11-28] MEDS: LISINOPRIL 20 MG TAB PO SCH (08:43)
[2016-11-28] MEDS: TOLTERODINE TARTRATE 4 MG CAP LA PO SCH (08:44)
[2016-11-28] MEDS: NIFEdipine 90 MG SUSTAINED RELEASE TAB PO SCH (08:44)
[2016-11-28] MEDS: CARVEDILOL 12.5 MG TAB PO SCH ×2 (08:45→22:26)
[2016-11-28] MEDS: POLYETHYLENE GLYCOL 17 GM PKG PO SCH (08:46)
[2016-11-28] MEDS: FREE WATER PO SCH ×3 (11:00→22:27)
--- NOTE | 2016-11-28 11:11 | HHI.NSPN ---
(Jeff Talbert) History Chief Complaint: No feeling to the legs. (Jeff Talbert) Interval History 11/18: 81-year-old female previously admitted to [facility] through the emergency room July 2016 with a 7 month history of progressive upper extremity and lower extremity weakness and sensory loss with inability to ambulate. Initial imaging studies revealed severe mid cervical stenosis with significant signal intensity changes within the cord. Patient underwent anterior and posterior decompression as follows: 08/08/16 C4 5 and C6 7 anterior cervical discectomy, resection herniated nucleus pulposus and posterior osteophytic disc complexes-microtechnique. C4 5 and C6 7 anterior interbody fusion with composite allograft bone. C4 5 and C6 7 anterior cervical instrumentation 08/15/16 - bilateral C4, C5, C6, C7 decompressive semi-laminectomy, medial facetectomy for dorsal spinal cord decompression with bilateral C4-C7 posterior instrumentation, bilateral C7 pedicle screw fixation and bilateral C4-C7 posterior fusion with local autograft and allograft bone The patient was seen in the office for follow-up within the past week and a postoperative CT scan revealed good incorporation of the graft and instrumentation. The patient was doing very well at that time was significant improvement in her severe preoperative quadriparesis, starting to ambulate with a walker. Patient halfway facility contacted neurosurgery office today indicating increased numbness in the upper extremities today. Patient brought into the emergency room for further evaluation with MRI scan accomplished which reveals new areas of upper cervical stenosis with cord compression and question of infection. 11/19: doing well, stable overnight. no new complaints currently 11/20: says she had a very good night, very happy with her care. no new complaints. awaiting for surgery tu11/21: The patient is doing well when seen this afternoon. She complained of neck pain then said it was to both shoulders. She had no other complaints. She did say that her legs buckle under her. 11/22: Patient went for a C3 laminoplasty w/titanium plate & composite allograft bone and bilateral inferior C2 & superior C4 decompressive semi-laminectomy. Post-operatively the patient did well and was returned to her room on a med/ surg floor. 11/23: This morning the patient states she is in pain. Nursing is in the room and has her morning meds including tramadol. She readily interacts, smiles and jokes. She does state the numbness and weakness to her legs is worse than before surgery. 11/24: The patient is doing well when seen and states she isn't in any pain when seen. She states that the numbness and weakness to the extremities is the same. 11/25: The patient states that she isn't doing good today. She is having some neck pain and she is upset that she was not able to take any steps with Physical Therapy today but was to yesterday. She also stated she was nauseated this morning and did endorse not having a bowel movement for a couple days. 11/27: The patient states she has no feeling to the legs today. She had just been placed back in bed from the cardiac chair when seen. 11/28: The patient still reports no feeling to the legs and no change in the numbness to the arms. She is scheduled for the OR today for a revision C2-C4 laminectomy. (Jeff Talbert) System Review Comments Constitutional: Patient denies any fever or chills. HEENT: Patient denies any visual or hearing problems. Neck: Patient denies any neck pain. Respiratory: Patient denies any shortness of breath or productive cough. Cardiovascular: Patient denies any chest pain, palpitations or irregular heartbeat. Gastrointestinal: Patient denies any abdominal pain, nausea, vomiting or incontinence of stool. Genitourinary: Patient has a Rojas catheter in place. Musculoskeletal: Patient says she has persistent weakness to the extremities. She denies any pain to the extremities. Neurologic: Patient says she has persistent weakness and numbness to the extremities. She denies any headache or dizziness. (Jeff Talbert) Exam Results Vital Signs Date Time Temp Pulse Resp B/P Pulse Ox O2 Delivery O2 Flow Rate FiO2 11/28/16 08:02 97.5 60 17 163/65 98 11/27/16 19:15 Room Air 11/27/16 10:45 21 Intake and Output 11/27/16 11/27/16 11/28/16 08:00 16:00 00:00 Intake Total 960 ml 720 ml 480 ml Output Total 1150 ml 600 ml 800 ml Balance -190 ml 120 ml -320 ml (Jeff Talbert) Physical Examination General: Patient is awake & alert, readily interacts, normal affect, no apparent distress. HEENT: Normocephalic, atraumatic. Neck: In [place] J cervical collar, midline cervical spine TTP, intact dressing to surgical wound, no JVD, trachea midline. Respiratory: CTAB w/o W/R/R, equal excursion, nonlaboured, on RA. Cardiovascular: S1S2 w/RRR w/o M/G/R, radial & pedal pulses 2+ bilaterally, cap refill < 2 sec, pedal edema 1+ bilaterally. Gastrointestinal: Abdomen soft, nontender, bowel sounds not appreciated. Skin: Warm, dry & intact except for intact posterior cervical spine surgical dressing intact w/o any shadowing, erythema or streaking, no evident discolouration, rashes, ulcerations or lesions. Musculoskeletal: CUMMINS to varying degree, no deformity or clubbing noted. Neurologic: AAOx3. Speech clear & appropriate. Follows commands w/o difficulty. Sensation diffusely diminished to light touch to all extremities. Strength 4+ to 5/5 to bilateral biceps, triceps & deltoids; with 3 to 3+/5 BLE. She is able to feel a pinch to the calf of both lower extremities and move the legs away. (Jeff Talbert) Lab, Micro, Other Results Allergies Coded Allergies Type Severity Reaction Last Updated Verified Morphine Allergy Severe Shortness of Breath 11/11/16 Yes Neosporin Allergy Severe Shortness of Breath 11/11/16 Yes Neomycin Allergy Unknown RASHES 11/18/16 Yes Penicillin Allergy Unknown RASHES 11/18/16 Yes Promethazine Allergy Unknown UNKNOWN 11/18/16 Yes Recent Impressions Thoracic Spine MRI 11/27/16 0000 Signed Impressions: Service Date/Time: Sunday, November 27, 2016 12:28 - CONCLUSION: 1. Moderate central canal stenosis again noted at the T.10-11 level without significant change. 2. Small posterior disc protrusion at the T5-6 level with mild mass effect on the anterior thecal sac. This is not significantly changed. 3. Stable mild disc bulges. 4. Stable compression fracture deformities of the T4 and T12 vertebral bodies. Shaheed Braxton MD Lumbar Spine MRI 11/27/16 0000 Signed Impressions: Service Date/Time: Sunday, November 27, 2016 12:28 - CONCLUSION: 1. Status post lumbar fusion from L3-S1. 2. Significant artifact through the fused level; nerve root compression or spinal stenosis cannot be evaluated. 3. Moderate central spinal stenosis at L2-3 T2 broad-based disc bulge and hypertrophic facet arthropathy. 4. Status post vertebral augmentation at T12 and L2. 5. No acute bony abnormalities. Xavi Loco MD Cervical Spine CT 11/26/16 0000 Signed Impressions: Service Date/Time: Sunday, November 27, 2016 08:24 - CONCLUSION: 1. Extensive post surgical changes as described above. There is limited visualization of the cervical cord due to streak artifact. 2. Central and left parasagittal blood based protrusion at the C2-3 level with apparent mass effect on the cord. 3. Annular disc bulge at C3-4. Shaheed Braxton MD 06:00 18:00 06:00 18:00 06:00 18:00 Intake Total 480 ml 600 ml 1440 ml 720 ml 960 ml Output Total 980 ml 900 ml 2050 ml 600 ml 1500 ml Balance -500 ml -300 ml -610 ml 120 ml -540 ml Intake Oral 480 ml 600 ml 1440 ml 720 ml 960 ml Output Urine Total 980 ml 900 ml 2050 ml 600 ml 1500 ml # Voids 0 # Bowel Movements 0 1 1 0 0 Vital Signs Date Time Temp Pulse Resp B/P Pulse Ox O2 Delivery O2 Flow Rate FiO2 11/28/16 08:02 97.5 60 17 163/65 98 11/28/16 04:00 98.0 59 17 155/52 97 11/28/16 00:00 98.6 68 16 170/58 95 11/27/16 19:15 Room Air 11/27/16 19:00 98.6 87 17 129/44 94 11/27/16 16:00 97.4 72 16 119/56 94 11/27/16 11:54 97.4 72 16 119/56 94 11/27/16 10:45 93 21 11/27/16 07:03 97.5 60 16 171/66 97 11/27/16 06:44 93 11/27/16 04:00 98.7 68 18 128/56 93 11/27/16 00:00 99.3 72 18 136/63 90 11/27/16 00:00 99.3 72 18 136/63 90 11/26/16 20:00 98.1 73 20 135/58 92 11/26/16 18:54 Room Air 11/26/16 15:37 98.8 62 19 99/54 97 11/26/16 11:59 97.4 62 19 105/48 93 11/26/16 07:43 98.4 60 19 123/59 92 11/26/16 06:39 95 11/26/16 00:00 98.6 84 17 121/66 95 11/26/16 00:00 98.6 84 17 121/66 95 11/25/16 19:32 Room Air 11/25/16 19:00 99.3 80 16 122/58 92 11/25/16 15:08 97.9 66 17 134/75 93 11/25/16 11:36 16 11/25/16 11:26 96.1 59 17 134/60 96 (Jeff Talbert) Medical Decision Making Impression and Plan Impression: 1. Development of increasing stenosis above previous C4 anterior- posterior cervical decompression site. Now with significant C2 3 and C3 4 stenosis with anterior and posterior compression. Positive increased spinal cord signal intensity at the C3 4 level. Question of infection versus inflammatory tissue at the posterior cervical operative site. No definite abscess or focal fluid collection. No elevation of white count. 2. Hypertension 3. Diabetes 4. Upper extremity DVT-on Xarelto Negative occult blood stool x3 Urine culture positive for Escherichia coli. Wound fluid w/negative stains, cultures w/o any growth thus far. MRI cervical spine demonstrated at least moderate persistent stenosis despite the C2-C4 surgical decompression. CT cervical spine demonstrated central & left parasagittal blood- based protrusion at the C2-3 level w/mass effect on the cord and an annular disc bulge at C3-4. A review of an MRI thoracic spine done demonstrated moderates spinal stenosis at the T10-11 level, also noted was minimal anterior wedging of the T12 vertebral body which was nonacute. MRI thoracic spine was essentially stable w/o any significant change from the earlier MRI in July. MRI lumbar spine demonstrated lumbar fusion from L3-S1 and vertebral augmentation at T12 & L2. There was moderate central spinal stenosis at L2-3 T2 broad-based disc bulge and hypertrophic facet arthropathy. No acute bony abnormalities. Patient with stable neurological examination. Postoperative Diagnosis: (1) Cervical spinal stenosis (2) Cervical myelopathy C2 3 and C3 4 stenosis with spinal cord compression, following previous C4-C7 anterior and posterior decompression and fusion. Cervical myelopathy POD #6 () s/p : 1. C3 laminoplasty, titanium plate, composite allograft bone 2. Bilateral inferior C2 and superior C4 decompressive semi-laminectomy 3. Preparation of allograft bone for laminoplasty bone graft. Plan: OR today for revision C2-C4 laminectomy Mobilise patient w/assistance. PT & OT eval & tx. Medical management per Hospitalist/Medicine, to include DVT UE tx. Will follow serous fluid cultures sent from surgery. Will continue to hold anticoagulation due to surgery today. (Jeff Talbert) Attending Statement The exam, history, and the medical decision-making described in the above note were completed with the assistance of the mid-level provider. I reviewed and agree with the findings presented. I attest that I had a [id number] encounter with the patient on the same day, and personally performed and documented my assessment and findings in the medical record. Patient's neurologic exam unchanged Discussed surgical plans again with her. For operating room today (Sav Eddy MD) Jeff Talbert Nov 28, 2016 11:11 Sav Eddy MD Jan 23, 2017 07:56
--- NOTE | 2016-11-28 11:15 | HHI.PR ---
Subjective Remarks Follow-up visit status post C-spine surgery and redo, bilateral lower extremity weakness, paresthesia, DVT left upper arm, urinary tract infection. Patient seen and examined today. Patient lying in bed, reports she is doing okay. States that she continues to have paresthesia, tingling sensation on her bilateral lower extremity and bilateral upper extremity. Plan for surgery today with Dr. Eddy. NPO for now. Denies SOB/ dyspnea. Denies chest pain, palpitations, headaches, dizziness. Denies fevers, chills, n/v/d. Objective Vitals Vital Signs Date Time Temp Pulse Resp B/P Pulse Ox O2 Delivery O2 Flow Rate FiO2 11/28/16 08:02 97.5 60 17 163/65 98 11/28/16 04:00 98.0 59 17 155/52 97 11/28/16 00:00 98.6 68 16 170/58 95 11/27/16 19:15 Room Air 11/27/16 19:00 98.6 87 17 129/44 94 11/27/16 16:00 97.4 72 16 119/56 94 11/27/16 11:54 97.4 72 16 119/56 94 I/O 11/27/16 11/27/16 11/27/16 11/28/16 11/28/16 11/28/16 07:00 15:00 23:00 07:00 15:00 23:00 Intake Total 960 ml 720 ml 480 ml 480 ml Output Total 1150 ml 600 ml 800 ml 700 ml Balance -190 ml 120 ml -320 ml -220 ml Intake Oral 960 ml 720 ml 480 ml 480 ml Output Urine Total 1150 ml 600 ml 800 ml 700 ml # Voids 0 # Bowel Movements 0 0 0 Imaging Last Impressions Thoracic Spine MRI 11/27/16 0000 Signed Impressions: Service Date/Time: Sunday, November 27, 2016 12:28 - CONCLUSION: 1. Moderate central canal stenosis again noted at the T.10-11 level without significant change. 2. Small posterior disc protrusion at the T5-6 level with mild mass effect on the anterior thecal sac. This is not significantly changed. 3. Stable mild disc bulges. 4. Stable compression fracture deformities of the T4 and T12 vertebral bodies. Shaheed Braxton MD Lumbar Spine MRI 11/27/16 0000 Signed Impressions: Service Date/Time: Sunday, November 27, 2016 12:28 - CONCLUSION: 1. Status post lumbar fusion from L3-S1. 2. Significant artifact through the fused level; nerve root compression or spinal stenosis cannot be evaluated. 3. Moderate central spinal stenosis at L2-3 T2 broad-based disc bulge and hypertrophic facet arthropathy. 4. Status post vertebral augmentation at T12 and L2. 5. No acute bony abnormalities. Xavi Loco MD Cervical Spine CT 11/26/16 0000 Signed Impressions: Service Date/Time: Sunday, November 27, 2016 08:24 - CONCLUSION: 1. Extensive post surgical changes as described above. There is limited visualization of the cervical cord due to streak artifact. 2. Central and left parasagittal blood based protrusion at the C2-3 level with apparent mass effect on the cord. 3. Annular disc bulge at C3-4. Shaheed Braxton MD Cervical Spine MRI 11/23/16 0000 Signed Impressions: Service Date/Time: Wednesday, November 23, 2016 13:13 - CONCLUSION: Significant postsurgical changes as described above. There is persistent high cervical spinal stenosis at the C2-C3 and C3-C4 level Persistent signal changes are present in the cord at C4 and C6. Asad Rajan MD FACR Chest X-Ray 11/21/16 0000 Signed Impressions: Service Date/Time: Monday, November 21, 2016 18:52 - CONCLUSION: 1. Postoperative median sternotomy with CABG. Minimal basal atelectasis or scarring. Compa Desir MD Upper Extremity Ultrasound 11/18/16 1843 Signed Impressions: Service Date/Time: Friday, November 18, 2016 20:25 - CONCLUSION: Positive for deep venous thrombosis in the axillary and brachial veins. Juan Beltre MD Objective Remarks GENERAL: This is a well-nourished, well-developed patient, in no apparent distress. SKIN: Warm and dry. HEENT: Normocephalic. Pupils equal round and reactive. Nose without bleeding. Airway patent. NECK: Trachea midline. Supple. C-collar in place. CARDIOVASCULAR: Regular rate and rhythm without murmurs, gallops, or rubs. RESPIRATORY: Clear to auscultation. Breath sounds equal bilaterally. No wheezes , rales, or rhonchi. GASTROINTESTINAL: Abdomen soft, non-tender, nondistended. Bowel Sounds normoactive x4. : Rojas draining clear yellow urine. MUSCULOSKELETAL: Extremities without clubbing, cyanosis, bilateral lower extremity trace edema. NEUROLOGICAL: Awake and alert. Oriented to time, place, person. No lower extremity weakness and paresthesia. Normal speech. Procedures Procedure: 1. C3 laminoplasty, titanium plate, composite allograft bone 2. Bilateral inferior C2 and superior C4 decompressive semi-laminectomy 3. Preparation of allograft bone for laminoplasty bone graft. A/P Problem List: (1) Cervical spinal stenosis ICD Code: M48.02 Status: Acute (2) Cervical disc disease with myelopathy ICD Code: M50.00 Status: Acute (3) HTN (hypertension) ICD Code: I10 Status: Chronic (4) Leg weakness, bilateral ICD Code: R29.898 Status: Acute (5) Left upper extremity deep vein thrombosis ICD Code: I82.622 Status: Acute (6) Cough ICD Code: R05 Status: Resolved Assessment and Plan This is an 81-year-old female patient with past medical history which includes diabetes mellitus, hypertension, hyperlipidemia, coronary artery disease status post coronary artery bypass graft and DVT upper extremity. S/P C-spine surgery 08/08/2016 and 08/15/2016. MRI which reveals new area of upper cervical stenosis with cord compression and question of infection. Patient also has ultrasound left upper extremity which shows DVT of axillary and brachial veins. We've been consulted for assistance with medical management and heparin bridge. Cervical stenosis with lower weakness/paresthesia. Status post surgery but continues to have weakness and paresthesia. Repeat MRI shows persistent cervical stenosis. Continue physical therapy, wound care, incentive spirometry and pain management. - Patient continues to have mobility problems, unable to stand, transfer, ambulate. - She is accepted in [facility]. Plan to DC patient to skilled rehab if cleared with neurosurgeon. As per patient she is unable to qualify for inpatient rehabilitation at [facility]. - As per neurosurgery, they have reviewed previous MRI which showed no significant lower thoracic stenosis. Reasonable to repeat the thoracic and lumbar MRI scan to make certain that there is no significant progressive stenosis at the thoracolumbar region, if no significant abnormality is noted on the follow-up MRI images, the revision total 2 and L for laminectomy could be performed. She does not appear to have a good bone substance or residual bone to place C2 and C3 posterior instrumentation, making a complete laminectomy and fusion is somewhat less desirable treatment plan option for her. - Hold of xarelto for now. Spoke with Dr. Eddy. Plan for surgery today. DVT left upper arm - Xarelto on hold. Neurosurgery wants to put anticoagulation on hold for 72 hrs after RUSTY drain is removed 11/24. May restart Xarelto if cleared by neurosurgery. - Surgical intervention will be done, Xarelto will continue to be held for now. Hypothyroidism continue home Synthroid 50 mcg by mouth daily dose. Diabetes mellitus continue home Levemir 12 units subcutaneous daily at bedtime and preprandial NovoLog 3 units subcutaneous before meals - Monitor Accu-Cheks before meals at bedtime with sliding scale insulin coverage. Stable. - Hold Levemir, pt. NPO for procedure. Restart once on PO diet. Hypertension- stable - Continue home medications which include carvedilol ER 40 mg by mouth daily , lisinopril 40 mg by mouth daily and nifedipine 90 mg by mouth daily Hyperlipidemia stable - Hold Crestor 10 minutes by mouth daily at bedtime per neurosurgery - Continue Zetia 10 mg by mouth daily at bedtime Escherichia coli UTI. Continue Macrobid for 7 days. - Discontinue Rojas catheter as soon as possible - Patient continues to have problems with mobility Postoperative anemia secondary to acute blood loss. Monitor DVT prophylaxis with SCD. Discuss with patient, nursing, Dr. Wooten Discharge Planning Plan to DC at [facility] if cleared by Neurosurgeon. Beau Campos Nov 28, 2016 11:15
[2016-11-28] MEDS ORDERED: NORMOSOL R INJ 1,000 ML IV ONE (12:00)
[2016-11-28] MEDS ORDERED: LACTATED RINGER'S 1000 ML INJ 2,000 ML IV ONE (12:00)
[2016-11-28] MEDS ORDERED: ONDANSETRON HCL 4 MG/2 ML VIAL IV PUSH ONE (12:00)
[2016-11-28] MEDS ORDERED: NEOSTIGMINE 3 MG/3 ML SYR IV ONE (12:00)
[2016-11-28] MEDS ORDERED: FAMOTIDINE 20 MG/2 ML VIAL IV ONE (12:00)
[2016-11-28] MEDS ORDERED: SODIUM CHLORIDE 0.9% INJ 250 ML IV ONE (12:00)
[2016-11-28] MEDS ORDERED: PROPOFOL 200 MG/20 ML AMP IV ONE (12:00)
[2016-11-28] MEDS ORDERED: SOD CH 0.9%(ARTERIAL)500ML INJ 500 ML ONE (12:00)
[2016-11-28] MEDS ORDERED: PROPOFOL 500 MG/50 ML BTL IV ONE (12:00)
[2016-11-28] MEDS ORDERED: ePHEDrine/NS 25 MG/5 ML SYR IV ONE (12:00)
[2016-11-28] MEDS ORDERED: METOPROLOL TARTRATE 25 MG TAB PO PRN (12:45)
[2016-11-28] MEDS ORDERED: LACTATED RINGER'S 1000 ML IV PRN (12:45)
[2016-11-28] MEDS ORDERED: CHLORHEXIDINE GLUCONATE 2 % 1 PACK (2 CLOTHS) TOPICAL PRN (12:45)
[2016-11-28] MEDS ORDERED: POVIDONE IODINE 5% (ANTISEPSIS KIT) 4 APPLICATIONS EACH NARE PRN (12:45)
[2016-11-28] MEDS ORDERED: INSULIN HUMAN REGULAR 1,000 UNITS/10 ML VIAL SQ PRN (12:45)
[2016-11-28] MEDS ORDERED: SODIUM CHLORID 0.9% 500 ML IV PRN (12:45)
[2016-11-28] MEDS ORDERED: GENTAMICIN SULFATE 80 MG/2 ML VIAL ONE (14:47)
[2016-11-28] MEDS ORDERED: GELFOAM SIZE 100 ONE (14:47)
[2016-11-28] MEDS ORDERED: LIDOCAINE 1%/EPINEPHrine 1:100,000 SOLN 30 ML VIAL ONE (14:47)
[2016-11-28] MEDS ORDERED: THROMBIN (TOPICAL) 5,000 UNIT VIAL ONE (14:47)
[2016-11-28] MEDS ORDERED: PROPOFOL 500 MG/50 ML INJ 50 ML ONE (15:14)
[2016-11-28] MEDS ORDERED: ARTIFICIAL TEARS OPTH OINT 3.5 APPLIC/3.5 GM TUBO ONE (15:24)
[2016-11-28 16:06] LABS: BLOOD GAS BASE EXCESS 2.8 mmol/L (-2-2); BLOOD GAS CARBOXYHEMOGLOBIN 1.9 % (0-4); BLOOD GAS HCO3 26 mmol/L (22-26); BLOOD GAS METHEMOGLOBIN 0.9 % (0-2); BLOOD GAS O2 HGB SATURATION 98 % (90-100); BLOOD GAS OXYGEN CONTENT 24.7 Vol % (12.0-20.0); BLOOD GAS PCO2 36 mmHg (38-42); BLOOD GAS PO2 364 mmHg (61-120); BLOOD GAS TOTAL HGB 17.5 G/DL (12.0-16.0); CRITICAL VALUE NO; OXYGEN DEVICE VENTILATOR; TEMP CORR TO 98.6
[2016-11-28 16:06] LABS: AUTOMATED NEUTROPHIL # 2.8 TH/MM3 (1.8-7.7); BASOPHIL % 0.6 % (0.0-2.0); EOSINOPHIL # 0.4 TH/MM3 (0-0.4); EOSINOPHIL % 7.3 % (0.0-4.0); HEMATOCRIT 23.3 % (35.0-46.0); HEMO FLAGS DIFF FINAL; LYMPH % 25.7 % (9.0-44.0); LYMPHOCYTE # 1.3 TH/MM3 (1.0-4.8); MEAN CELL VOLUME 88.1 FL (80.0-100.0); MEAN CORPUSCULAR HEMOGLOBIN 30.6 PG (27.0-34.0); MEAN CORPUSCULAR HGB CONC 34.7 % (32.0-36.0); MONO % 9.4 % (0.0-8.0); PLATELET COUNT 203 TH/MM3 (150-450); RED BLOOD COUNT 2.64 MIL/MM3 (4.00-5.30); RED CELL DISTRIBUTION WIDTH 16.2 % (11.6-17.2); WHITE BLOOD COUNT 4.9 TH/MM3 (4.0-11.0)
[2016-11-28 16:07] LABS: DRAW SITE ART LINE; FIO2 100 %; STAT YES
[2016-11-28] MEDS ORDERED: VANCOMYCIN HCL 1000 MG VIAL ONE (16:19)
[2016-11-28] MEDS ORDERED: CLINDAMYCIN PHOS 600 MG/4 ML VIAL ONE (16:20)
[2016-11-28 18:23] LABS: APTT (PATIENT) 29.2 SEC (24.3-30.1); INTERNATIONAL NORMALIZED RATIO 0.9 RATIO; PROTHROMBIN TIME - PATIENT 10.3 SEC (9.8-11.6)
[2016-11-28 18:36] LABS: BICARBONATE 27.4 MEQ/L (21.0-32.0); POTASSIUM 4.2 MEQ/L (3.5-5.1)
[2016-11-28 20:09] LABS: AUTOMATED NEUTROPHIL # 3.9 TH/MM3 (1.8-7.7); BASOPHIL % 0.6 % (0.0-2.0); EOSINOPHIL # 0.2 TH/MM3 (0-0.4); EOSINOPHIL % 4.3 % (0.0-4.0); HEMATOCRIT 30.4 % (35.0-46.0); HEMO FLAGS DIFF FINAL; LYMPH % 15.8 % (9.0-44.0); LYMPHOCYTE # 0.8 TH/MM3 (1.0-4.8); MEAN CELL VOLUME 87.8 FL (80.0-100.0); MEAN CORPUSCULAR HEMOGLOBIN 30.6 PG (27.0-34.0); MEAN CORPUSCULAR HGB CONC 34.9 % (32.0-36.0); MONO % 3.4 % (0.0-8.0); NEUT % 75.9 % (16.0-70.0); PLATELET COUNT 220 TH/MM3 (150-450); RED BLOOD COUNT 3.46 MIL/MM3 (4.00-5.30); RED CELL DISTRIBUTION WIDTH 15.8 % (11.6-17.2); WHITE BLOOD COUNT 5.2 TH/MM3 (4.0-11.0)
[2016-11-28] MEDS ORDERED: DO NOT ADM ANY ANTICOAGULANT DRUGS PRN (20:42)
[2016-11-28] MEDS: 1/2 NS + KCL 20 MEQ INJ 1,000 ML IV SCH (20:47)
--- NOTE | 2016-11-28 20:54 | RADRPT ---
EXAM DATE/TIME: 11/28/2016 18:19 [facility] COMPARISON: MRI THORACIC SPINE W/O CONTRAST, November 27, 2016, 12:28. MRI LUMBAR SPINE W/O CONTRAST, November 27 017, 12:28. INDICATIONS : Theoracic spine T10-11 laminectomy and decompression. OR. MEDICAL HISTORY : Hypertension. Diabetes mellitus type II. SURGICAL HISTORY : Fusion, cervical. Discectomy, lumbar. CABG. ENCOUNTER: Initial ACUITY: 1 day PAIN SCORE: Non-responsive. LOCATION: Thoracic spine T10-11 FINDINGS: Several lateral views of the lumbar and lower thoracic spine obtained in the operating room. Pointer and retractors are at T10/T11. CONCLUSION: Pointer at T10/T11. Kiko Meneses MD on November 28, 2016 at 20:52 Board Certified Radiologist. This report was verified electronically.
[2016-11-28] MEDS ORDERED: fentaNYL CITRATE 250 MCG/5 ML AMP ONE (20:57)
[2016-11-28] MEDS ORDERED: MIDAZOLAM HCL 2 MG/2 ML VIAL ONE (20:57)
[2016-11-28] MEDS ORDERED: SODIUM CHLORIDE 0.9% FLUSH 5 ML FLUSH IVF PRN (21:00)
[2016-11-28] MEDS ORDERED: traMADol HCL 50 MG TAB PO PRN (21:00)
[2016-11-28] MEDS: MULTIVITAMINS/MINERALS THERAPEUTIC TAB PO SCH (21:00)
[2016-11-28] MEDS: EZETIMIBE 10 MG TAB PO SCH (21:00)
[2016-11-28] MEDS ORDERED: NALOXONE HCL 0.4 MG/ML AMP IV PRN (21:00)
[2016-11-28] MEDS: INSULIN DETEMIR 100 UNITS/ML VIAL SQ SCH (21:00)
[2016-11-28] MEDS: SODIUM CHLORIDE 0.9% FLUSH 5 ML FLUSH IVF SCH (21:00)
[2016-11-28] MEDS: GABAPENTIN 300 MG CAP PO SCH (21:00)
--- NOTE | 2016-11-28 21:02 | PD.OP ---
Operative Report Date of Surgery: Nov 28, 2016 Preoperative Diagnosis: (1) Cervical spinal stenosis (2) Cervical myelopathy (3) Stenosis, spinal, thoracic Postoperative Diagnosis: (1) Cervical spinal stenosis (2) Cervical myelopathy (3) Stenosis, spinal, thoracic Procedure: Procedure #1 Revision C2 and C4 decompressive semi-laminectomy for cervical spinal cord decompression Procedure #2 Bilateral T10-11 decompressive semi-laminectomy for spinal cord decompression Anesthesia: Gen. Surgeon: Sav Eddy Videotape Operator(s): Shaheed Rodriguez Operation and Findings: Findings: Residual hypertrophic ligament and osteophyte with moderate epidural hematoma at the C2 3 and C3 4 levels. Severe dorsal T10-11 osteophyte with calcified ligamentum flavum markedly adherent to the thecal sac with significant bilateral facet hypertrophy and ligament hypertrophy causing severe spinal canal stenosis. Previous fusion at the L2-3 level with no obvious residual mobility at this segment. A large amount of bone graft overlying the bilateral L2-3 lamina and facet. Procedure in detail Estimated blood loss 300 cc Sav Eddy MD Nov 28, 2016 21:02
[2016-11-28 21:36] LABS: BICARBONATE 26.7 MEQ/L (21.0-32.0); POTASSIUM 4.1 MEQ/L (3.5-5.1)
[2016-11-29] MEDS: FREE WATER PO SCH ×5 (02:14→21:40)
[2016-11-29] MEDS: traMADol HCL 50 MG TAB PO PRN ×2 (02:20→06:46)
[2016-11-29 04:00] VITALS: BP 146/63; PULSE 69; RESP 16; TEMP 97.4; O2SAT 96
[2016-11-29] MEDS: LEVOTHYROXINE SODIUM 50 MCG TAB PO SCH (06:43)
[2016-11-29] MEDS: 1/2 NS + KCL 20 MEQ INJ 1,000 ML IV SCH ×2 (06:43→15:00)
[2016-11-29] MEDS: INSULIN NovoLIN REGULAR SUPPLEMENTAL SCALE SQ SCH ×4 (06:44→21:40)
[2016-11-29 07:03] VITALS: BP 142/61; PULSE 64; RESP 17; TEMP 96.8; O2SAT 98
[2016-11-29] MEDS: ACETAMINOPHEN 325 MG TAB PO PRN (07:39)
[2016-11-29] MEDS: DOCUSATE SODIUM 50 MG/SENNA 8.6 MG TAB PO SCH ×2 (07:40→21:00)
[2016-11-29] MEDS: FOLIC ACID 1 MG TAB PO SCH (07:40)
[2016-11-29] MEDS: FERROUS SULFATE 325 MG (65 MG ELEMENTAL IRON) TAB PO SCH ×2 (07:40→21:30)
[2016-11-29] MEDS: TOLTERODINE TARTRATE 4 MG CAP LA PO SCH (07:40)
[2016-11-29] MEDS: LISINOPRIL 20 MG TAB PO SCH (07:40)
[2016-11-29] MEDS: CARVEDILOL 12.5 MG TAB PO SCH ×2 (07:41→21:30)
[2016-11-29] MEDS: SODIUM CHLORIDE 0.9% FLUSH 5 ML FLUSH IVF SCH ×2 (07:41→21:31)
[2016-11-29] MEDS: NITROFURANTOIN MONOHYD MACROCR 100 MG CAP PO SCH ×2 (07:41→15:00)
[2016-11-29] MEDS: MAGNESIUM OXIDE 400 MG TAB PO SCH ×2 (07:41→21:31)
[2016-11-29] MEDS: NIFEdipine 90 MG SUSTAINED RELEASE TAB PO SCH (07:43)
[2016-11-29] MEDS: POLYETHYLENE GLYCOL 17 GM PKG PO SCH (07:47)
[2016-11-29 09:11] LABS: AUTOMATED NEUTROPHIL # 5.3 TH/MM3 (1.8-7.7); BASOPHIL % 0.4 % (0.0-2.0); EOSINOPHIL % 0.2 % (0.0-4.0); HEMATOCRIT 29.7 % (35.0-46.0); HEMO FLAGS DIFF FINAL; LYMPH % 11.9 % (9.0-44.0); LYMPHOCYTE # 0.8 TH/MM3 (1.0-4.8); MEAN CELL VOLUME 88.1 FL (80.0-100.0); MEAN CORPUSCULAR HEMOGLOBIN 29.9 PG (27.0-34.0); MONO % 8.5 % (0.0-8.0); PLATELET COUNT 252 TH/MM3 (150-450); RED BLOOD COUNT 3.37 MIL/MM3 (4.00-5.30); RED CELL DISTRIBUTION WIDTH 15.9 % (11.6-17.2); WHITE BLOOD COUNT 6.8 TH/MM3 (4.0-11.0)
[2016-11-29] MEDS ORDERED: MORPHINE SULFATE 4 MG/ML INJ IV PUSH PRN (09:15)
[2016-11-29 09:32] LABS: BICARBONATE 26.9 MEQ/L (21.0-32.0); POTASSIUM 4.7 MEQ/L (3.5-5.1)
[2016-11-29] MEDS: oxyCODONE/ACETAMINOPHEN 5 MG/325 MG TAB PO PRN ×3 (10:54→21:31)
[2016-11-29] MEDS: guaiFENesin/DEXTROMETHORPHAN 200 MG/20 MG/10 ML CUP PO PRN (10:58)
[2016-11-29 11:00] VITALS: BP 116/53; PULSE 73; RESP 16; TEMP 98.6; O2SAT 95
--- NOTE | 2016-11-29 11:23 | HHI.PR ---
Subjective Remarks Follow-up visit status post C-spine surgery and redo, bilateral lower extremity weakness, paresthesia, DVT left upper arm, urinary tract infection. Patient seen and examined today. 11/28 patient s/p revision C2 and C4 decompressive semi laminectomy for cervical cord compression and bilateral T10-T11 decompressive semi laminectomy for spinal cord decompression. Patient complaining of 9 out of 10 pain. States she feels the strength in her upper extremities is already improving. Objective Vitals Vital Signs Date Time Temp Pulse Resp B/P Pulse Ox O2 Delivery O2 Flow Rate FiO2 11/29/16 11:03 Room Air 11/29/16 11:00 98.6 73 16 116/53 95 11/29/16 07:52 Nasal Cannula 1.00 11/29/16 07:03 96.8 64 17 142/61 98 11/29/16 04:00 97.4 69 16 146/63 96 11/28/16 22:27 97.1 73 16 156/69 99 11/28/16 22:00 69 13 159/79 100 Nasal Cannula 3 11/28/16 21:45 65 11 152/67 100 Nasal Cannula 3 11/28/16 21:30 71 11 163/70 100 Nasal Cannula 4 11/28/16 21:27 100 Nasal Cannula 4 11/28/16 21:27 100 Nasal Cannula 4.00 11/28/16 21:15 68 13 156/72 100 Mechanical Ventilator 40 11/28/16 21:00 65 12 167/67 100 Mechanical Ventilator 40 11/28/16 20:48 100 40 11/28/16 20:45 97.2 67 13 176/70 100 Mechanical Ventilator 40 11/28/16 20:42 100 40 11/28/16 18:06 98 21 11/28/16 13:25 Room Air 11/28/16 12:18 98 11/28/16 11:40 97.1 55 17 123/57 96 I/O 11/28/16 11/28/16 11/28/16 11/29/16 11/29/16 11/29/16 07:00 15:00 23:00 07:00 15:00 23:00 Intake Total 480 ml 0 ml 2800 ml 240 ml 1097 ml Output Total 700 ml 300 ml 560 ml 10 ml Balance -220 ml 0 ml 2500 ml -320 ml 1087 ml Intake Oral 480 ml 0 ml 240 ml IV Total 1097 ml Other 2800 ml Output Urine Total 700 ml 500 ml Drainage Total 60 ml 10 ml Estimated Blood Loss 300 ml # Voids 0 # Bowel Movements 0 0 Result Diagram: 11/29/16 0738 11/29/16 0735 Objective Remarks GENERAL: This is a well-nourished, well-developed patient, in no apparent distress. Awake and alert. [place] Collar in place. SKIN: Warm and dry. HEENT: Normocephalic. Pupils equal round and reactive. Nose without bleeding. Airway patent. NECK: Trachea midline. Supple. [place] collar in place. RUSTY drains x 2 with serosanguineous drainage. CARDIOVASCULAR: Regular rate and rhythm without murmurs, gallops, or rubs. RESPIRATORY: Clear to auscultation. Breath sounds equal bilaterally. No wheezes , rales, or rhonchi. GASTROINTESTINAL: Abdomen soft, non-tender, nondistended. Bowel Sounds normoactive x4. : Rojas draining clear yellow urine. MUSCULOSKELETAL: Extremities without clubbing, cyanosis. Bilateral lower extremity trace edema. NEUROLOGICAL: Awake and alert. Oriented to time, place, person. Sensation diminished to light touch in all extremities but patient reports it has improved since surgery yesterday. 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 Weak dorsiflexion bilaterally right greater than left. Normal speech. Procedures Procedure: 1. C3 laminoplasty, titanium plate, composite allograft bone 2. Bilateral inferior C2 and superior C4 decompressive semi-laminectomy 3. Preparation of allograft bone for laminoplasty bone graft. 11/28/16 1. Revision C2-C4 decompressive semi-laminectomy for cervical spinal cord decompression 2. Bilateral T10-11 decompressive semi-laminectomy for spinal cord decompression Medications and IVs Current Medications Medications (Trade) Dose Ordered Sig/Jin Route Start Time Stop Time Status Last Admin (Tylenol) 650 mg Q6H PRN PO 11/18/16 21:45 11/29/16 07:39 (Zetia) 10 mg HS PO 11/19/16 21:00 11/27/16 22:34 (Ferrous Sulfate) 325 mg BID PO 11/19/16 09:00 11/29/16 07:40 (Folate) 5 mg DAILY PO 11/19/16 09:00 11/29/16 07:40 (Neurontin) 300 mg HS PO 11/19/16 21:00 11/27/16 22:34 (Synthroid) 50 mcg DAILY@07 PO 11/19/16 07:00 11/29/16 06:43 (Mag-Ox) 400 mg BID PO 11/19/16 09:00 11/29/16 07:41 (Theragran M Tab) 1 tab HS PO 11/19/16 21:00 11/27/16 22:34 (Procardia Xl) 90 mg DAILY PO 11/19/16 09:00 11/29/16 07:43 (Miralax) 17 gm DAILY PO 11/19/16 09:00 11/26/16 08:13 (Kandi-Colace) 2 tab BID PO 11/19/16 09:00 11/29/16 07:40 (Detrol La) 4 mg DAILY PO 11/19/16 09:00 11/29/16 07:40 (Coreg) 12.5 mg BID PO 11/19/16 09:00 11/29/16 07:41 (NovoLOG INJ) 3 units ACHS SQ 11/19/16 07:00 Hold 11/20/16 06:13 (Levemir Inj) 12 units HS SQ 11/19/16 21:00 11/27/16 22:44 (Prinivil) 40 mg DAILY PO 11/19/16 09:00 11/29/16 07:40 (D50w (Vial) Inj) 50 ml UNSCH PRN IV 11/18/16 21:45 (Glucagon Inj) 1 mg UNSCH PRN OTHER 11/18/16 21:45 (Robitussin Dm 200-20 Mg/10 ml Liq) 10 ml Q6H PRN PO 11/21/16 18:00 11/29/16 10:58 (Free Water) 400 ml Q4H PO 11/23/16 07:00 11/29/16 06:45 (Macrobid) 100 mg BIDPC PO 11/24/16 18:00 12/01/16 17:59 11/29/16 07:41 (Ultram) 50 mg Q4H PRN PO 11/28/16 21:00 (Narcan Inj) 0.4 mg UNSCH PRN IV 11/28/16 21:00 (NS Flush) 2 ml UNSCH PRN IVF 11/28/16 21:00 IV Flush 2 ml 2 ml BID IVF 11/28/16 21:00 11/29/16 07:41 (1/2 NS + KCl 20 Meq Inj) 1,000 ml @ 100 mls/hr Q10H IV 11/28/16 20:47 11/29/16 06:43 Miscellaneous Information ALL NURSING DEPARTME... UNSCH PRN .XX 11/28/16 20:42 11/29/16 20:41 (Percocet 5-325 Mg) 1 tab Q4H PRN PO 11/29/16 10:15 11/29/16 10:54 A/P Problem List: (1) Cervical spinal stenosis ICD Code: M48.02 Status: Acute (2) Cervical disc disease with myelopathy ICD Code: M50.00 Status: Acute (3) HTN (hypertension) ICD Code: I10 Status: Chronic (4) Leg weakness, bilateral ICD Code: R29.898 Status: Acute (5) Left upper extremity deep vein thrombosis ICD Code: I82.622 Status: Acute (6) Cough ICD Code: R05 Status: Resolved Assessment and Plan This is an 81-year-old female patient with past medical history which includes diabetes mellitus, hypertension, hyperlipidemia, coronary artery disease status post coronary artery bypass graft and DVT upper extremity. S/P C-spine surgery 08/08/2016 and 08/15/2016. MRI which reveals new area of upper cervical stenosis with cord compression and question of infection. Patient also has ultrasound left upper extremity which shows DVT of axillary and brachial veins. We've been consulted for assistance with medical management and heparin bridge. Cervical stenosis with lower weakness/paresthesia. Status post surgery but continues to have weakness and paresthesia. Repeat MRI shows persistent cervical stenosis. Continue physical therapy, wound care, incentive spirometry and pain management. - Patient status post revision C2 and C4 decompressive similar laminectomy for cervical cord decompression and bilateral T10-T11 decompressive semi- laminectomy for spinal cord decompression 11/28/16. Patient found to have residual hypertrophic ligament and osteophyte with moderate epidural hematoma at the C2 3 and C3 4 levels as well as severe dorsal T10 11 osteophyte with calcified ligamentum flavum markedly adherent to the thecal sac with significant bilateral facet arthropathy and ligamentum hypertrophy causing severe spinal canal stenosis. - Patient currently on Tramadol for pain management. Will trial Percocet for better pain control. IV Dilaudid 0.2mg x 1 dose. - She is [facility] in [facility]. Plan to DC patient to skilled rehab if cleared with neurosurgeon. As per patient she is unable to qualify for inpatient rehabilitation at [place]. - Xarelto on hold - will resume once cleared by neurosurgery. - Continue with PT/OT. DVT left upper arm - Xarelto on hold secondary to surgical intervention yesterday. RUSTY drains in place. Will discuss with neurosurgery when to resume. Hypothyroidism - continue home Synthroid 50 mcg by mouth daily dose. Diabetes mellitus - continue home Levemir 12 units subcutaneous daily at bedtime and preprandial NovoLog 3 units subcutaneous before meals - continue to monitor Accu-Cheks before meals and at bedtime with sliding scale insulin coverage. - Levemir on hold secondary to nothing by mouth status for yesterday's surgical procedure. Diabetic diet resumed. Blood sugars 101 this morning. We will continue to monitor blood sugars will reinitiate schedule insulin when indicated. Hypertension, stable - Continue home medications which include carvedilol ER 40 mg by mouth daily , lisinopril 40 mg by mouth daily and nifedipine 90 mg by mouth daily Hyperlipidemia stable - Hold Crestor 10 minutes by mouth daily at bedtime per neurosurgery as may be contributing to patient's complaints of muscle weakness. - Continue Zetia 10 mg by mouth daily at bedtime Escherichia coli UTI. - Continue Macrobid for 7 days. - Discontinue Rojas catheter as soon as possible - Patient continues to have problems with mobility Hyponatremia - mild - repeat labs in am Postoperative anemia secondary to acute blood loss. - appears stable postoperatively - Continue to monitor DVT prophylaxis with SCD. Discuss with patient, nursing, DrIwona Noel Nov 29, 2016 11:23
--- NOTE | 2016-11-29 13:58 | RADRPT ---
EXAM DATE/TIME: 11/29/2016 10:08 [facility] COMPARISON: MRI LUMBAR SPINE W/O CONTRAST, November 27, 2016, 12:28. INDICATIONS : Evaluate L2-3 fusion. RADIATION DOSE: 23.80 CTDIvol (mGy) MEDICAL HISTORY : Congestive heart failure. Diabetes mellitus type 2. SURGICAL HISTORY : CABG. Hysterectomy. Cervical and lumbar fusion. ENCOUNTER: Initial ACUITY: 1 day PAIN SCALE: 6/10 LOCATION: Lower back TECHNIQUE: Volumetric scanning of the lumbar spine was performed. Multiplanar reconstructions in the sagittal, coronal and oblique axial planes were performed. Using automated exposure control and adjustment of the mA and/or kV according to patient size, radiation dose was kept as low as reasonably achievable t o obtain optimal diagnostic quality images. DICOM format image data is available electronically for review and comparison. FINDINGS: There is evidence of posterior fusion hardware from L3 through S1. There is cement augmentation at L 2 and T12 with chronic compression deformities at these levels. Calcification of the L1-2 and L4-5 d isc space is also noted. There is very severe circumferential spinal stenosis and bilateral foraminal narrowing at L2-3 second hiren to diffuse disc bulge and extensive facet joint hypertrophy/ligamentous laxity bilaterally. No f ocal disc herniation is noted at this level. Moderate bilateral foraminal narrowing is noted at L1-2 , L3-4, L4-5 and L5-S1 secondary to facet joint hypertrophy/ligamentous laxity as well as mild diffus e disc osteophyte complexes at these levels. No spinal stenosis is noted at these levels. There is poor visualization of the L5-S1 level due to extensive hardware artifact obscuring the thecal sac at this level. Note is made of cholelithiasis. CONCLUSION: 1. Very severe circumferential spinal stenosis and bilateral foraminal narrowing at L2-3. 2. Moderate bilateral foraminal narrowing at L1-2, L3-4, L4-5 and L5-S1 without spinal stenosis at th sarah levels. 3. Limited examination due to artifact related to the extensive fusion hardware extending from L3 thr ough S1. Darrell Ashley MD on November 29, 2016 at 10:47 Board Certified Radiologist. This report was verified electronically.
[2016-11-29 15:01] VITALS: BP 136/60; PULSE 67; RESP 18; TEMP 96.7; O2SAT 95
--- NOTE | 2016-11-29 15:03 | HHI.NSPN ---
(Jeff TalbertNegrito STAPLE LASTER) History Chief Complaint: Neck pain (Jeff Talbert. STAPLE LASTER) Interval History 11/18: 81-year-old female previously admitted to [facility] through the emergency room July 2016 with a 7 month history of progressive upper extremity and lower extremity weakness and sensory loss with inability to ambulate. Initial imaging studies revealed severe mid cervical stenosis with significant signal intensity changes within the cord. Patient underwent anterior and posterior decompression as follows: 08/08/16 C4 5 and C6 7 anterior cervical discectomy, resection herniated nucleus pulposus and posterior osteophytic disc complexes-microtechnique. C4 5 and C6 7 anterior interbody fusion with composite allograft bone. C4 5 and C6 7 anterior cervical instrumentation 08/15/16 - bilateral C4, C5, C6, C7 decompressive semi-laminectomy, medial facetectomy for dorsal spinal cord decompression with bilateral C4-C7 posterior instrumentation, bilateral C7 pedicle screw fixation and bilateral C4-C7 posterior fusion with local autograft and allograft bone The patient was seen in the office for follow-up within the past week and a postoperative CT scan revealed good incorporation of the graft and instrumentation. The patient was doing very well at that time was significant improvement in her severe preoperative quadriparesis, starting to ambulate with a walker. Patient intermediate facility contacted neurosurgery office today indicating increased numbness in the upper extremities today. Patient brought into the emergency room for further evaluation with MRI scan accomplished which reveals new areas of upper cervical stenosis with cord compression and question of infection. 11/19: doing well, stable overnight. no new complaints currently 11/20: says she had a very good night, very happy with her care. no new complaints. awaiting for surgery tu11/21: The patient is doing well when seen this afternoon. She complained of neck pain then said it was to both shoulders. She had no other complaints. She did say that her legs buckle under her. 11/22: Patient went for a C3 laminoplasty w/titanium plate & composite allograft bone and bilateral inferior C2 & superior C4 decompressive semi-laminectomy. Post-operatively the patient did well and was returned to her room on a med/ surg floor. 11/23: This morning the patient states she is in pain. Nursing is in the room and has her morning meds including tramadol. She readily interacts, smiles and jokes. She does state the numbness and weakness to her legs is worse than before surgery. 11/24: The patient is doing well when seen and states she isn't in any pain when seen. She states that the numbness and weakness to the extremities is the same. 11/25: The patient states that she isn't doing good today. She is having some neck pain and she is upset that she was not able to take any steps with Physical Therapy today but was to yesterday. She also stated she was nauseated this morning and did endorse not having a bowel movement for a couple days. 11/27: The patient states she has no feeling to the legs today. She had just been placed back in bed from the cardiac chair when seen. 11/28: The patient still reports no feeling to the legs and no change in the numbness to the arms. She is scheduled for the OR today for a revision C2-C4 laminectomy. 11/29: This afternoon the patient complains of pain to the neck when seen. She does state that the numbness and weakness to the extremities has improved after her surgery yesterday. She does state her bottom is sore. (Jeff Talbert) System Review Comments Constitutional: Patient denies any fever or chills. HEENT: Patient denies any visual or hearing problems. Neck: Patient complains of neck pain. Respiratory: Patient denies any shortness of breath or productive cough. Cardiovascular: Patient denies any chest pain, palpitations or irregular heartbeat. Gastrointestinal: Patient denies any abdominal pain, nausea, vomiting or incontinence of stool. Genitourinary: Patient has a Rojas catheter in place. Musculoskeletal: Patient says her bottom is sore. She does say the weakness to the extremities is better. She denies any pain to the extremities. Neurologic: Patient says the weakness and numbness to the extremities are better. She denies any headache or dizziness. (Jeff Talbert) Exam Results Vital Signs Date Time Temp Pulse Resp B/P Pulse Ox O2 Delivery O2 Flow Rate FiO2 11/29/16 11:03 Room Air 11/29/16 11:00 98.6 73 16 116/53 95 11/29/16 07:52 1.00 11/28/16 21:15 40 Intake and Output 11/28/16 11/28/16 11/29/16 08:00 16:00 00:00 Intake Total 480 ml 0 ml 2800 ml Output Total 700 ml 300 ml Balance -220 ml 0 ml 2500 ml (Jeff Talbert) Physical Examination General: Patient is awake & alert, readily interacts, normal affect, no apparent distress. HEENT: Normocephalic, atraumatic. Neck: In [place] J cervical collar, midline cervical spine TTP, intact dressing to surgical wound w/some shadowing at RUSTY insertion site, RUSTY drain to bulb suction w/serosanguinous drainage, no JVD, trachea midline. Respiratory: CTAB w/o W/R/R, equal excursion, nonlaboured, on RA. Cardiovascular: S1S2 w/RRR w/o M/G/R, radial & pedal pulses 2+ bilaterally, cap refill < 2 sec, pedal edema 1+ bilaterally. Gastrointestinal: Abdomen soft, nontender, bowel sounds not appreciated. Skin: Warm, dry & intact except for intact thoracic spine & posterior cervical spine surgical dressings intact w/o any erythema or streaking, no evident discolouration, rashes, ulcerations or lesions. Musculoskeletal: CUMMINS to varying degree, no deformity or clubbing noted, intact dressing to thoracic spine surgical incision w/o any shadowing, RUSTY drain to bulb suction w/serosanguinous drainage. Neurologic: AAOx3. Speech clear & appropriate. Follows commands w/o difficulty. Sensation diminished to light touch to all extremities but patient reports improved. Strength 4+ to 5/5 to bilateral biceps, triceps & deltoids, right hand statement processor 4/5 and left 3+ to 4/5; plantar extension 4+ to 5/5 bilaterally, left flexion 3+ to 4/5 right flexion 2+ to 3/5. (Jeff Talbert) Lab, Micro, Other Results Recent Impressions Thoracic Spine X-Ray 11/28/16 0000 Signed Impressions: Service Date/Time: Monday, November 28, 2016 18:19 - CONCLUSION: Pointer at T10/T11. Kiko Meneses MD Thoracic Spine MRI 11/27/16 0000 Signed Impressions: Service Date/Time: Sunday, November 27, 2016 12:28 - CONCLUSION: 1. Moderate central canal stenosis again noted at the T.10-11 level without significant change. 2. Small posterior disc protrusion at the T5-6 level with mild mass effect on the anterior thecal sac. This is not significantly changed. 3. Stable mild disc bulges. 4. Stable compression fracture deformities of the T4 and T12 vertebral bodies. Shaheed Braxton MD Lumbar Spine MRI 11/27/16 0000 Signed Impressions: Service Date/Time: Sunday, November 27, 2016 12:28 - CONCLUSION: 1. Status post lumbar fusion from L3-S1. 2. Significant artifact through the fused level; nerve root compression or spinal stenosis cannot be evaluated. 3. Moderate central spinal stenosis at L2-3 T2 broad-based disc bulge and hypertrophic facet arthropathy. 4. Status post vertebral augmentation at T12 and L2. 5. No acute bony abnormalities. Xavi Loco MD ///// 06:00 18:00 06:00 18:00 06:00 18:00 Intake Total 1440 ml 720 ml 960 ml 0 ml 3040 ml 1097 ml Output Total 2050 ml 600 ml 1500 ml 860 ml 10 ml Balance -610 ml 120 ml -540 ml 0 ml 2180 ml 1087 ml Intake Oral 1440 ml 720 ml 960 ml 0 ml 240 ml IV Total 1097 ml Other 2800 ml Output Urine Total 2050 ml 600 ml 1500 ml 500 ml Drainage Total 60 ml 10 ml Estimated Blood Loss 300 ml # Voids 0 0 # Bowel Movements 1 0 0 0 Laboratory Tests Test 11/28/16 11/28/16 11/28/16 11/28/16 13:45 15:45 16:00 19:45 White Blood Count 4.9 TH/MM3 5.2 TH/MM3 Red Blood Count 2.64 MIL/MM3 3.46 MIL/MM3 Hemoglobin 8.1 GM/DL 10.6 GM/DL Hematocrit 23.3 % 30.4 % Mean Corpuscular Volume 88.1 FL 87.8 FL Mean Corpuscular Hemoglobin 30.6 PG 30.6 PG Mean Corpuscular Hemoglobin 34.7 % 34.9 % Concent Red Cell Distribution Width 16.2 % 15.8 % Platelet Count 203 TH/MM3 220 TH/MM3 Mean Platelet Volume 8.7 FL 9.0 FL Neutrophils (%) (Auto) 57.0 % 75.9 % Lymphocytes (%) (Auto) 25.7 % 15.8 % Monocytes (%) (Auto) 9.4 % 3.4 % Eosinophils (%) (Auto) 7.3 % 4.3 % Basophils (%) (Auto) 0.6 % 0.6 % Neutrophils # (Auto) 2.8 TH/MM3 3.9 TH/MM3 Lymphocytes # (Auto) 1.3 TH/MM3 0.8 TH/MM3 Monocytes # (Auto) 0.5 TH/MM3 0.2 TH/MM3 Eosinophils # (Auto) 0.4 TH/MM3 0.2 TH/MM3 Basophils # (Auto) 0.0 TH/MM3 0.0 TH/MM3 CBC Comment DIFF FINAL DIFF FINAL Differential Comment B-Type Natriuretic Peptide 46 PG/ML Blood Type O POSITIVE Antibody Screen NEGATIVE Crossmatch Leukocyte-Reduced Red Blood Cells Blood Bank Comment Prothrombin Time 10.3 SEC Prothromb Time International 0.9 RATIO Ratio Activated Partial 29.2 SEC Thromboplast Time Sodium Level 136 MEQ/L Potassium Level 4.2 MEQ/L Chloride Level 102 MEQ/L Carbon Dioxide Level 27.4 MEQ/L Anion Gap 7 MEQ/L Blood Urea Nitrogen 9 MG/DL Creatinine 0.68 MG/DL Estimat Glomerular Filtration 83 ML/MIN Rate Random Glucose 116 MG/DL Calcium Level 8.4 MG/DL Blood Gas Puncture Site ART LINE Blood Gas Patient Temperature 98.6 Blood Gas HCO3 26 mmol/L Blood Gas Base Excess 2.8 mmol/L Blood Gas Oxygen Saturation 98 % Arterial Blood pH 7.48 Arterial Blood Partial 36 mmHg Pressure CO2 Arterial Blood Partial 364 mmHg Pressure O2 Arterial Blood Oxygen Content 24.7 Vol % Arterial Blood 1.9 % Carboxyhemoglobin Arterial Blood Methemoglobin 0.9 % Blood Gas Hemoglobin 17.5 G/DL Oxygen Delivery Device VENTILATOR Blood Gas Inspired Oxygen 100 % Test 11/28/16 11/29/16 11/29/16 20:57 07:35 07:38 Sodium Level 135 MEQ/L 134 MEQ/L Potassium Level 4.1 MEQ/L 4.7 MEQ/L Chloride Level 102 MEQ/L 101 MEQ/L Carbon Dioxide Level 26.7 MEQ/L 26.9 MEQ/L Anion Gap 6 MEQ/L 6 MEQ/L Blood Urea Nitrogen 9 MG/DL 12 MG/DL Creatinine 0.65 MG/DL 0.75 MG/DL Estimat Glomerular Filtration 87 ML/MIN 74 ML/MIN Rate Random Glucose 190 MG/DL 107 MG/DL Calcium Level 8.4 MG/DL 8.3 MG/DL White Blood Count 6.8 TH/MM3 Red Blood Count 3.37 MIL/MM3 Hemoglobin 10.1 GM/DL Hematocrit 29.7 % Mean Corpuscular Volume 88.1 FL Mean Corpuscular Hemoglobin 29.9 PG Mean Corpuscular Hemoglobin 34.0 % Concent Red Cell Distribution Width 15.9 % Platelet Count 252 TH/MM3 Mean Platelet Volume 8.6 FL Neutrophils (%) (Auto) 79.0 % Lymphocytes (%) (Auto) 11.9 % Monocytes (%) (Auto) 8.5 % Eosinophils (%) (Auto) 0.2 % Basophils (%) (Auto) 0.4 % Neutrophils # (Auto) 5.3 TH/MM3 Lymphocytes # (Auto) 0.8 TH/MM3 Monocytes # (Auto) 0.6 TH/MM3 Eosinophils # (Auto) 0.0 TH/MM3 Basophils # (Auto) 0.0 TH/MM3 CBC Comment DIFF FINAL Differential Comment Vital Signs Date Time Temp Pulse Resp B/P Pulse Ox O2 Delivery O2 Flow Rate FiO2 11/29/16 11:03 Room Air 11/29/16 11:00 98.6 73 16 116/53 95 11/29/16 07:52 Nasal Cannula 1.00 11/29/16 07:03 96.8 64 17 142/61 98 11/29/16 04:00 97.4 69 16 146/63 96 11/28/16 22:27 97.1 73 16 156/69 99 11/28/16 22:00 69 13 159/79 100 Nasal Cannula 3 11/28/16 21:45 65 11 152/67 100 Nasal Cannula 3 11/28/16 21:30 71 11 163/70 100 Nasal Cannula 4 11/28/16 21:27 100 Nasal Cannula 4 11/28/16 21:27 100 Nasal Cannula 4.00 11/28/16 21:27 100 Nasal Cannula 4.00 11/28/16 21:15 68 13 156/72 100 Mechanical Ventilator 40 11/28/16 21:00 65 12 167/67 100 Mechanical Ventilator 40 11/28/16 20:48 100 40 11/28/16 20:45 97.2 67 13 176/70 100 Mechanical Ventilator 40 11/28/16 20:42 100 40 11/28/16 18:06 98 21 11/28/16 13:25 Room Air 11/28/16 12:18 98 11/28/16 11:40 97.1 55 17 123/57 96 11/28/16 08:02 97.5 60 17 163/65 98 11/28/16 04:00 98.0 59 17 155/52 97 11/28/16 00:00 98.6 68 16 170/58 95 11/27/16 19:15 Room Air 11/27/16 19:00 98.6 87 17 129/44 94 11/27/16 16:00 97.4 72 16 119/56 94 11/27/16 11:54 97.4 72 16 119/56 94 11/27/16 10:45 93 21 11/27/16 07:03 97.5 60 16 171/66 97 11/27/16 06:44 93 11/27/16 04:00 98.7 68 18 128/56 93 11/27/16 00:00 99.3 72 18 136/63 90 11/27/16 00:00 99.3 72 18 136/63 90 11/26/16 20:00 98.1 73 20 135/58 92 11/26/16 18:54 Room Air 11/26/16 15:37 98.8 62 19 99/54 97 (Jeff Talbert) Medical Decision Making Impression and Plan Impression: 1. Development of increasing stenosis above previous C4 anterior- posterior cervical decompression site. Now with significant C2 3 and C3 4 stenosis with anterior and posterior compression. Positive increased spinal cord signal intensity at the C3 4 level. Question of infection versus inflammatory tissue at the posterior cervical operative site. No definite abscess or focal fluid collection. No elevation of white count. 2. Hypertension 3. Diabetes 4. Upper extremity DVT-on Xarelto Negative occult blood stool x3 Urine culture positive for Escherichia coli. Wound fluid w/negative stains, cultures w/o any growth in 1 week. MRI cervical spine demonstrated at least moderate persistent stenosis despite the C2-C4 surgical decompression. CT cervical spine demonstrated central & left parasagittal blood- based protrusion at the C2-3 level w/mass effect on the cord and an annular disc bulge at C3-4. A review of an MRI thoracic spine done demonstrated moderates spinal stenosis at the T10-11 level, also noted was minimal anterior wedging of the T12 vertebral body which was nonacute. MRI thoracic spine was essentially stable w/o any significant change from the earlier MRI in July. MRI lumbar spine demonstrated lumbar fusion from L3-S1 and vertebral augmentation at T12 & L2. There was moderate central spinal stenosis at L2-3 T2 broad-based disc bulge and hypertrophic facet arthropathy. No acute bony abnormalities. CT lumbar spine demonstrates very severe circumferential spinal stenosis & bilateral foraminal narrowing at L2-2 w/moderate bilateral foraminal narrowing at L1-2, L3-4, L4-5 & L5/S1 w/o spinal stenosis. Patient with essentially stable neurological examination, some improvement in sensation. Postoperative Diagnosis: (1) Cervical spinal stenosis (2) Cervical myelopathy (3) Stenosis, spinal, thoracic C2 3 and C3 4 stenosis with spinal cord compression, following previous C4-C7 anterior and posterior decompression and fusion. Cervical myelopathy POD #7 () s/p: 1. C3 laminoplasty, titanium plate, composite allograft bone 2. Bilateral inferior C2 and superior C4 decompressive semi-laminectomy 3. Preparation of allograft bone for laminoplasty bone graft. POD #1 () s/p: Procedure #1 - Revision C2 and C4 decompressive semi-laminectomy for cervical spinal cord decompression Procedure #2 - Bilateral T10-11 decompressive semi-laminectomy for spinal cord decompression Plan: Mobilise patient w/assistance. PT & OT eval & tx. Medical management per Hospitalist/Medicine, to include DVT UE tx. Will follow serous fluid cultures sent from surgery. Will continue to hold anticoagulation s/p surgery. (Jeff Talbert) Attending Statement The exam, history, and the medical decision-making described in the above note were completed with the assistance of the mid-level provider. I reviewed and agree with the findings presented. I attest that I had a [id number] encounter with the patient on the same day, and personally performed and documented my assessment and findings in the medical record. Stable neuro exam following cervical and thoracic decompressions Continue drains Wound cultures pending Mobilize out of bed with therapy (Sav Eddy MD) Jeff Talbert Nov 29, 2016 15:03 Sav Eddy MD Jan 23, 2017 07:57
[2016-11-29 16:51] VITALS: O2SAT 95
[2016-11-29] MEDS ORDERED: HYDROmorphone HCL PF 1 MG/ML VIAL IV ONE (17:00)
[2016-11-29 21:00] VITALS: BP 145/64; PULSE 72; RESP 17; TEMP 97.8; O2SAT 95
[2016-11-29] MEDS: GABAPENTIN 300 MG CAP PO SCH (21:30)
[2016-11-29] MEDS: EZETIMIBE 10 MG TAB PO SCH (21:31)
[2016-11-29] MEDS: MULTIVITAMINS/MINERALS THERAPEUTIC TAB PO SCH (21:31)
[2016-11-30] VITALS (8 sets, daily range): BP systolic 118–168; BP diastolic 54–76; PULSE 63–73; RESP 16–19; TEMP 97.7–99.1; O2SAT 94–96
[2016-11-30] MEDS: FREE WATER PO SCH ×6 (00:51→23:00)
[2016-11-30] MEDS: oxyCODONE/ACETAMINOPHEN 5 MG/325 MG TAB PO PRN ×3 (03:15→18:22)
[2016-11-30] MEDS: LEVOTHYROXINE SODIUM 50 MCG TAB PO SCH (06:03)
[2016-11-30] MEDS: INSULIN NovoLIN REGULAR SUPPLEMENTAL SCALE SQ SCH ×4 (06:07→19:57)
[2016-11-30] MEDS: SODIUM CHLORIDE 0.9% FLUSH 5 ML FLUSH IVF SCH ×2 (09:00→21:00)
[2016-11-30] MEDS: NIFEdipine 90 MG SUSTAINED RELEASE TAB PO SCH (09:00)
[2016-11-30] MEDS: DOCUSATE SODIUM 50 MG/SENNA 8.6 MG TAB PO SCH ×2 (09:33→19:53)
[2016-11-30] MEDS: LISINOPRIL 20 MG TAB PO SCH (09:33)
[2016-11-30] MEDS: MAGNESIUM OXIDE 400 MG TAB PO SCH ×2 (09:33→19:57)
[2016-11-30] MEDS: POLYETHYLENE GLYCOL 17 GM PKG PO SCH (09:33)
[2016-11-30] MEDS: FOLIC ACID 1 MG TAB PO SCH (09:34)
[2016-11-30] MEDS: NITROFURANTOIN MONOHYD MACROCR 100 MG CAP PO SCH ×2 (09:34→18:22)
[2016-11-30] MEDS: FERROUS SULFATE 325 MG (65 MG ELEMENTAL IRON) TAB PO SCH ×2 (09:34→19:53)
[2016-11-30] MEDS: TOLTERODINE TARTRATE 4 MG CAP LA PO SCH (09:34)
[2016-11-30] MEDS: CARVEDILOL 12.5 MG TAB PO SCH ×2 (09:34→19:53)
[2016-11-30] MEDS ORDERED: BISACODYL 10 MG SUPP RECTAL ONE (10:00)
--- NOTE | 2016-11-30 10:14 | HHI.PR ---
Subjective Remarks Follow-up visit status post C-spine surgery and redo, bilateral lower extremity weakness, paresthesia, DVT left upper arm, urinary tract infection. Patient seen and examined today. Patient states she is doing well. Slept good overnight. No acute issues. Pain controlled. Denies any dizziness or headache. Denies any fever or chills. Denies any chest pain or shortness of breath. Denies any N/V or abdominal pain. Has not had a BM in several days. Patient states her strength is improving and she is able to move her arms and legs more. Objective Vitals Vital Signs Date Time Temp Pulse Resp B/P Pulse Ox O2 Delivery O2 Flow Rate FiO2 11/30/16 07:37 97.7 68 19 150/64 94 11/30/16 04:35 97.7 63 18 154/65 94 11/30/16 00:45 98.6 63 17 149/63 94 11/29/16 21:00 97.8 72 17 145/64 95 11/29/16 16:51 95 21 11/29/16 15:01 96.7 67 18 136/60 95 11/29/16 15:01 Room Air 11/29/16 11:03 Room Air 11/29/16 11:00 98.6 73 16 116/53 95 I/O 11/29/16 11/29/16 11/29/16 11/30/16 11/30/16 11/30/16 07:00 15:00 23:00 07:00 15:00 23:00 Intake Total 240 ml 2057 ml 240 ml 480 ml Output Total 560 ml 360 ml 760 ml 1008 ml Balance -320 ml 1697 ml -520 ml -528 ml Intake Oral 240 ml 960 ml 240 ml 480 ml IV Total 1097 ml Output Urine Total 500 ml 350 ml 750 ml 1000 ml Drainage Total 60 ml 10 ml 10 ml 8 ml # Voids 0 # Bowel Movements 0 0 0 Result Diagram: 11/29/16 0738 11/29/16 0735 Imaging Last Impressions Lumbar Spine CT 11/29/16 0000 Signed Impressions: Service Date/Time: Tuesday, November 29, 2016 10:08 - CONCLUSION: 1. Very severe circumferential spinal stenosis and bilateral foraminal narrowing at L2-3. 2. Moderate bilateral foraminal narrowing at L1-2, L3-4, L4-5 and L5-S1 without spinal stenosis at these levels. 3. Limited examination due to artifact related to the extensive fusion hardware extending from L3 through S1. Darrell Ashley MD Thoracic Spine X-Ray 11/28/16 0000 Signed Impressions: Service Date/Time: Monday, November 28, 2016 18:19 - CONCLUSION: Pointer at T10/T11. Kiko Meneses MD Thoracic Spine MRI 11/27/16 0000 Signed Impressions: Service Date/Time: Sunday, November 27, 2016 12:28 - CONCLUSION: 1. Moderate central canal stenosis again noted at the T.10-11 level without significant change. 2. Small posterior disc protrusion at the T5-6 level with mild mass effect on the anterior thecal sac. This is not significantly changed. 3. Stable mild disc bulges. 4. Stable compression fracture deformities of the T4 and T12 vertebral bodies. Shaheed Braxton MD Lumbar Spine MRI 11/27/16 0000 Signed Impressions: Service Date/Time: Sunday, November 27, 2016 12:28 - CONCLUSION: 1. Status post lumbar fusion from L3-S1. 2. Significant artifact through the fused level; nerve root compression or spinal stenosis cannot be evaluated. 3. Moderate central spinal stenosis at L2-3 T2 broad-based disc bulge and hypertrophic facet arthropathy. 4. Status post vertebral augmentation at T12 and L2. 5. No acute bony abnormalities. Xavi Loco MD Cervical Spine CT 11/26/16 0000 Signed Impressions: Service Date/Time: Sunday, November 27, 2016 08:24 - CONCLUSION: 1. Extensive post surgical changes as described above. There is limited visualization of the cervical cord due to streak artifact. 2. Central and left parasagittal blood based protrusion at the C2-3 level with apparent mass effect on the cord. 3. Annular disc bulge at C3-4. Shaheed Braxton MD Cervical Spine MRI 11/23/16 0000 Signed Impressions: Service Date/Time: Wednesday, November 23, 2016 13:13 - CONCLUSION: Significant postsurgical changes as described above. There is persistent high cervical spinal stenosis at the C2-C3 and C3-C4 level Persistent signal changes are present in the cord at C4 and C6. Asda Rajan MD FACR Chest X-Ray 11/21/16 0000 Signed Impressions: Service Date/Time: Monday, November 21, 2016 18:52 - CONCLUSION: 1. Postoperative median sternotomy with CABG. Minimal basal atelectasis or scarring. Compa Desir MD Upper Extremity Ultrasound 11/18/16 3850 Signed Impressions: Service Date/Time: Friday, November 18, 2016 20:25 - CONCLUSION: Positive for deep venous thrombosis in the axillary and brachial veins. Juan Beltre MD Objective Remarks GENERAL: This is a well-nourished, well-developed patient, in no apparent distress. Awake and alert. Trib[place] J Collar in place. Friend is at the bedside. SKIN: Warm and dry. No rash. HEENT: Normocephalic. Pupils equal round and reactive. Nose without bleeding. Airway patent. NECK: Trachea midline. Supple. Trib[place] J collar in place. RUSTY drains x 2 with small amount of serosanguineous drainage. CARDIOVASCULAR: Regular rate and rhythm without murmurs, gallops, or rubs. RESPIRATORY: Clear to auscultation. Breath sounds equal bilaterally. No wheezes , rales, or rhonchi. GASTROINTESTINAL: Abdomen soft, non-tender, nondistended. Bowel Sounds normoactive x4. : Rojas draining clear yellow urine. MUSCULOSKELETAL: Extremities without clubbing, cyanosis. Bilateral lower extremity trace edema. NEUROLOGICAL: Awake and alert. Oriented to time, place, person. Sensation diminished to light touch in all extremities but improving. Good bilateral radio technician strength 4/5 on left 5-/5 on right. Bilateral dorsiflexion improved but still weak right > left. Normal speech. Procedures Procedure: 1. C3 laminoplasty, titanium plate, composite allograft bone 2. Bilateral inferior C2 and superior C4 decompressive semi-laminectomy 3. Preparation of allograft bone for laminoplasty bone graft. 11/28/16 1. Revision C2-C4 decompressive semi-laminectomy for cervical spinal cord decompression 2. Bilateral T10-11 decompressive semi-laminectomy for spinal cord decompression Medications and IVs Current Medications Medications (Trade) Dose Ordered Sig/Jin Route Start Time Stop Time Status Last Admin (Tylenol) 650 mg Q6H PRN PO 11/18/16 21:45 11/29/16 07:39 (Zetia) 10 mg HS PO 11/19/16 21:00 11/29/16 21:31 (Ferrous Sulfate) 325 mg BID PO 11/19/16 09:00 11/30/16 09:34 (Folate) 5 mg DAILY PO 11/19/16 09:00 11/30/16 09:34 (Neurontin) 300 mg HS PO 11/19/16 21:00 11/29/16 21:30 (Synthroid) 50 mcg DAILY@07 PO 11/19/16 07:00 11/30/16 06:03 (Mag-Ox) 400 mg BID PO 11/19/16 09:00 11/30/16 09:33 (Theragran M Tab) 1 tab HS PO 11/19/16 21:00 11/29/16 21:31 (Procardia Xl) 90 mg DAILY PO 11/19/16 09:00 11/30/16 09:00 (Miralax) 17 gm DAILY PO 11/19/16 09:00 11/30/16 09:33 (Kandi-Colace) 2 tab BID PO 11/19/16 09:00 11/30/16 09:33 (Detrol La) 4 mg DAILY PO 11/19/16 09:00 11/30/16 09:34 (Coreg) 12.5 mg BID PO 11/19/16 09:00 11/30/16 09:34 (NovoLOG INJ) 3 units ACHS SQ 11/19/16 07:00 Hold 11/20/16 06:13 (Levemir Inj) 12 units HS SQ 11/19/16 21:00 Hold 11/27/16 22:44 (Prinivil) 40 mg DAILY PO 11/19/16 09:00 11/30/16 09:33 (D50w (Vial) Inj) 50 ml UNSCH PRN IV 11/18/16 21:45 (Glucagon Inj) 1 mg UNSCH PRN OTHER 11/18/16 21:45 (Robitussin Dm 200-20 Mg/10 ml Liq) 10 ml Q6H PRN PO 11/21/16 18:00 11/29/16 10:58 (Free Water) 400 ml Q4H PO 11/23/16 07:00 11/29/16 06:45 (Macrobid) 100 mg BIDPC PO 11/24/16 18:00 12/01/16 17:59 11/30/16 09:34 (Ultram) 50 mg Q4H PRN PO 11/28/16 21:00 (Narcan Inj) 0.4 mg UNSCH PRN IV 11/28/16 21:00 (NS Flush) 2 ml UNSCH PRN IVF 11/28/16 21:00 (NS Flush) 2 ml BID IVF 11/28/16 21:00 11/30/16 09:00 (Percocet 5-325 Mg) 1 tab Q4H PRN PO 11/29/16 10:15 11/30/16 03:15 A/P Problem List: (1) Cervical spinal stenosis ICD Code: M48.02 Status: Acute (2) Cervical disc disease with myelopathy ICD Code: M50.00 Status: Acute (3) HTN (hypertension) ICD Code: I10 Status: Chronic (4) Leg weakness, bilateral ICD Code: R29.898 Status: Acute (5) Left upper extremity deep vein thrombosis ICD Code: I82.622 Status: Acute (6) Cough ICD Code: R05 Status: Resolved Assessment and Plan This is an 81-year-old female patient with past medical history which includes diabetes mellitus, hypertension, hyperlipidemia, coronary artery disease status post coronary artery bypass graft and DVT upper extremity. S/P C-spine surgery 08/08/2016 and 08/15/2016. MRI which reveals new area of upper cervical stenosis with cord compression and question of infection. Patient also has ultrasound left upper extremity which shows DVT of axillary and brachial veins. We've been consulted for assistance with medical management and heparin bridge. Cervical stenosis with lower weakness/paresthesia. Status post surgery but continues to have weakness and paresthesia. Repeat MRI shows persistent cervical stenosis. Continue physical therapy, wound care, incentive spirometry and pain management. - Patient status post revision C2 and C4 decompressive similar laminectomy for cervical cord decompression and bilateral T10-T11 decompressive semi- laminectomy for spinal cord decompression 11/28/16. Patient found to have residual hypertrophic ligament and osteophyte with moderate epidural hematoma at the C2 3 and C3 4 levels as well as severe dorsal T10 11 osteophyte with calcified ligamentum flavum markedly adherent to the thecal sac with significant bilateral facet arthropathy and ligamentum hypertrophy causing severe spinal canal stenosis. - Continue on Tramadol 50mg q4h prn pain 3-5 and Percocet 5/325 1 tab q4h prn pain 6-10. - She is accepted in [facility]. Discussed with RICHA Holt and will have Kadeem reevaluate patient for possible acceptance as she has just undergone revision decompression surgery and is improving clinically. - Xarelto on hold - will resume once cleared by neurosurgery. - Continue with PT/OT. DVT left upper arm - Xarelto on hold secondary to surgical intervention yesterday. Per neurosurgeries note from yesterday, continue to hold anticoagulation at present. Hypothyroidism - continue home Synthroid 50 mcg by mouth daily dose. - last TSH in system was 1.370 08/02/16. Recheck TSH. Diabetes mellitus - previously on home Levemir 12 units subcutaneous daily at bedtime and preprandial NovoLog 3 units subcutaneous before meals - continue to monitor Accu-Cheks before meals and at bedtime with sliding scale insulin coverage. 01 - Levemir on hold secondary to nothing by mouth status for yesterday's surgical procedure. Diabetic diet resumed. Blood sugars 121 this morning. We will continue to monitor blood sugars will reinitiate schedule insulin when indicated. Hypertension, stable - Continue home medications which include carvedilol ER 40 mg by mouth daily , lisinopril 40 mg by mouth daily and nifedipine 90 mg by mouth daily Hyperlipidemia stable - Hold Crestor 10 minutes by mouth daily at bedtime per neurosurgery as may be contributing to patient's complaints of muscle weakness. - Continue Zetia 10 mg by mouth daily at bedtime Escherichia coli UTI. - Continue Macrobid for 7 days. - Discontinue Rojas catheter Hyponatremia - mild - repeat labs in am - pending Postoperative anemia secondary to acute blood loss. - appears stable postoperatively - Continue to monitor as indicated Constipation - no BM x 4 days - continue with Kandi Colace and Miralax - Dulcolax suppository now - monitor for BM DVT prophylaxis with SCD. Chemoprophylaxis on hold per Neurosurgery Discuss with patient, nursing staff, Iwona Castillo Nov 30, 2016 10:14
[2016-11-30 10:28] LABS: BICARBONATE 28.2 MEQ/L (21.0-32.0); POTASSIUM 4.1 MEQ/L (3.5-5.1)
--- NOTE | 2016-11-30 12:49 | HHI.NSPN ---
(Isma Talbertashtyn DANGELO) History Chief Complaint: No complaints today. (Isma Talbertashtyn DANGELO) Interval History 11/18: 81-year-old female previously admitted to [facility] through the emergency room July 2016 with a 7 month history of progressive upper extremity and lower extremity weakness and sensory loss with inability to ambulate. Initial imaging studies revealed severe mid cervical stenosis with significant signal intensity changes within the cord. Patient underwent anterior and posterior decompression as follows: 08/08/16 C4 5 and C6 7 anterior cervical discectomy, resection herniated nucleus pulposus and posterior osteophytic disc complexes-microtechnique. C4 5 and C6 7 anterior interbody fusion with composite allograft bone. C4 5 and C6 7 anterior cervical instrumentation 08/15/16 - bilateral C4, C5, C6, C7 decompressive semi-laminectomy, medial facetectomy for dorsal spinal cord decompression with bilateral C4-C7 posterior instrumentation, bilateral C7 pedicle screw fixation and bilateral C4-C7 posterior fusion with local autograft and allograft bone The patient was seen in the office for follow-up within the past week and a postoperative CT scan revealed good incorporation of the graft and instrumentation. The patient was doing very well at that time was significant improvement in her severe preoperative quadriparesis, starting to ambulate with a walker. Patient halfway facility contacted neurosurgery office today indicating increased numbness in the upper extremities today. Patient brought into the emergency room for further evaluation with MRI scan accomplished which reveals new areas of upper cervical stenosis with cord compression and question of infection. 11/19: doing well, stable overnight. no new complaints currently 11/20: says she had a very good night, very happy with her care. no new complaints. awaiting for surgery tu11/21: The patient is doing well when seen this afternoon. She complained of neck pain then said it was to both shoulders. She had no other complaints. She did say that her legs buckle under her. 11/22: Patient went for a C3 laminoplasty w/titanium plate & composite allograft bone and bilateral inferior C2 & superior C4 decompressive semi-laminectomy. Post-operatively the patient did well and was returned to her room on a med/ surg floor. 11/23: This morning the patient states she is in pain. Nursing is in the room and has her morning meds including tramadol. She readily interacts, smiles and jokes. She does state the numbness and weakness to her legs is worse than before surgery. 11/24: The patient is doing well when seen and states she isn't in any pain when seen. She states that the numbness and weakness to the extremities is the same. 11/25: The patient states that she isn't doing good today. She is having some neck pain and she is upset that she was not able to take any steps with Physical Therapy today but was to yesterday. She also stated she was nauseated this morning and did endorse not having a bowel movement for a couple days. 11/27: The patient states she has no feeling to the legs today. She had just been placed back in bed from the cardiac chair when seen. 11/28: The patient still reports no feeling to the legs and no change in the numbness to the arms. She is scheduled for the OR today for a revision C2-C4 laminectomy. 11/29: This afternoon the patient complains of pain to the neck when seen. She does state that the numbness and weakness to the extremities has improved after her surgery yesterday. She does state her bottom is sore. 11/30: The patient is asleep when seen but awakens to verbal stimuli. After awakening she is alert and readily interacts. She has no complaints. She said she learned a new trick today and smiles. She puts her arms up about shoulder height and says that was how high she was able to lift them prior to the surgery. Then she grasps at the air like she is climbing a ladder and brings the arms above shoulder level greater than 45 degrees. (Jeff Talbert) System Review Comments Constitutional: Patient denies any fever or chills. HEENT: Patient denies any visual or hearing problems. Neck: Patient denies any neck pain. Respiratory: Patient denies any shortness of breath or productive cough. Cardiovascular: Patient denies any chest pain, palpitations or irregular heartbeat. Gastrointestinal: Patient denies any abdominal pain, nausea, vomiting or incontinence of stool. Genitourinary: Patient has a Rojas catheter in place. Musculoskeletal: Patient states the weakness to the extremities is better. She denies any pain to the extremities. Neurologic: Patient says the weakness and numbness to the extremities are better. She denies any headache or dizziness. (Jeff Talbert) Exam Results Vital Signs Date Time Temp Pulse Resp B/P Pulse Ox O2 Delivery O2 Flow Rate FiO2 11/30/16 11:23 98.6 65 19 135/76 95 11/29/16 16:51 21 11/29/16 15:01 Room Air 11/29/16 07:52 1.00 Intake and Output 11/29/16 11/29/16 11/30/16 08:00 16:00 00:00 Intake Total 240 ml 2057 ml 240 ml Output Total 560 ml 360 ml 760 ml Balance -320 ml 1697 ml -520 ml (Jeff Talbert) Physical Examination General: Patient is asleep but awakens to verbal stimuli. After that she is alert and readily interacts, normal affect, no apparent distress. HEENT: Normocephalic, atraumatic. Neck: In [place] J cervical collar, midline cervical spine mildly TTP, intact dressing to surgical wound, RUSTY drain to bulb suction w/serosanguinous drainage, no JVD, trachea midline. Respiratory: CTAB w/o W/R/R, equal excursion, nonlaboured, on RA. Cardiovascular: S1S2 w/RRR w/o M/G/R, radial & pedal pulses 2+ bilaterally, cap refill < 2 sec, pedal edema 1+ bilaterally. Gastrointestinal: Abdomen soft, nontender, bowel sounds not appreciated. Skin: Warm, dry & intact except for thoracic spine & posterior cervical spine w/ intact surgical dressings, no evident discolouration, rashes, ulcerations or lesions. Musculoskeletal: CUMMINS to varying degree, no deformity or clubbing noted, intact dressing to thoracic spine surgical incision, RUSTY drain to bulb suction w/ serosanguinous drainage. Neurologic: AAOx3. Speech clear & appropriate. Follows commands w/o difficulty. Sensation diminished to light touch to all extremities, patient continues to report improvement in sensation. Strength 4+ to 5/5 to bilateral biceps, triceps & deltoids, right hand separator operator shellfish meats 4/5 and left 3+ to 4/5; plantar extension 4+ to 5/5 bilaterally, left flexion 3+ to 4/5 right flexion 3 to 3+/5. (Jeff Talbert) Medical Decision Making Impression and Plan Impression: 1. Development of increasing stenosis above previous C4 anterior- posterior cervical decompression site. Now with significant C2 3 and C3 4 stenosis with anterior and posterior compression. Positive increased spinal cord signal intensity at the C3 4 level. Question of infection versus inflammatory tissue at the posterior cervical operative site. No definite abscess or focal fluid collection. No elevation of white count. 2. Hypertension 3. Diabetes 4. Upper extremity DVT-on Xarelto Negative occult blood stool x3 Urine culture positive for Escherichia coli, treated. Wound fluid w/negative stains, cultures w/o any growth in 1 week. MRI cervical spine demonstrated at least moderate persistent stenosis despite the C2-C4 surgical decompression. CT cervical spine demonstrated central & left parasagittal blood- based protrusion at the C2-3 level w/mass effect on the cord and an annular disc bulge at C3-4. A review of an MRI thoracic spine done demonstrated moderates spinal stenosis at the T10-11 level, also noted was minimal anterior wedging of the T12 vertebral body which was nonacute. MRI thoracic spine was essentially stable w/o any significant change from the earlier MRI in July. MRI lumbar spine demonstrated lumbar fusion from L3-S1 and vertebral augmentation at T12 & L2. There was moderate central spinal stenosis at L2-3 T2 broad-based disc bulge and hypertrophic facet arthropathy. No acute bony abnormalities. CT lumbar spine demonstrates very severe circumferential spinal stenosis & bilateral foraminal narrowing at L2-2 w/moderate bilateral foraminal narrowing at L1-2, L3-4, L4-5 & L5/S1 w/o spinal stenosis. Patient's neurological examination essentially stable but slowly improving. Postoperative Diagnosis: (1) Cervical spinal stenosis (2) Cervical myelopathy (3) Stenosis, spinal, thoracic C2 3 and C3 4 stenosis with spinal cord compression, following previous C4-C7 anterior and posterior decompression and fusion. Cervical myelopathy POD #8 () s/p: 1. C3 laminoplasty, titanium plate, composite allograft bone 2. Bilateral inferior C2 and superior C4 decompressive semi-laminectomy 3. Preparation of allograft bone for laminoplasty bone graft. POD #2 () s/p: Procedure #1 - Revision C2 and C4 decompressive semi-laminectomy for cervical spinal cord decompression Procedure #2 - Bilateral T10-11 decompressive semi-laminectomy for spinal cord decompression Plan: Mobilise patient w/assistance. PT & OT eval & tx. Medical management per Hospitalist/Medicine, to include DVT UE tx. Will follow serous fluid cultures sent from surgery. Will continue to hold anticoagulation s/p surgery. Plan for discharge to [facility]. Will d/c RUSTY drains. (Jeff Talbert) Attending Statement The exam, history, and the medical decision-making described in the above note were completed with the assistance of the mid-level provider. I reviewed and agree with the findings presented. I attest that I had a [id number] encounter with the patient on the same day, and personally performed and documented my assessment and findings in the medical record. Continuing therapy Discontinue drains Discharge to rehabilitation (Sav Eddy MD) Jeff Talbert Nov 30, 2016 12:49 Sav Eddy MD Jan 23, 2017 07:58
[2016-11-30] MEDS: MULTIVITAMINS/MINERALS THERAPEUTIC TAB PO SCH (19:53)
[2016-11-30] MEDS: GABAPENTIN 300 MG CAP PO SCH (19:53)
[2016-11-30] MEDS: EZETIMIBE 10 MG TAB PO SCH (19:56)
[2016-12-01 00:50] VITALS: BP 173/67; PULSE 64; RESP 18; TEMP 97.9; O2SAT 94
[2016-12-01] MEDS: oxyCODONE/ACETAMINOPHEN 5 MG/325 MG TAB PO PRN ×3 (01:43→11:44)
[2016-12-01] MEDS: FREE WATER PO SCH ×3 (02:49→11:00)
[2016-12-01] MEDS: LEVOTHYROXINE SODIUM 50 MCG TAB PO SCH (05:41)
[2016-12-01] MEDS: INSULIN NovoLIN REGULAR SUPPLEMENTAL SCALE SQ SCH ×2 (05:48→11:00)
[2016-12-01 07:35] VITALS: BP 154/70; PULSE 58; RESP 18; TEMP 97.2; O2SAT 95
[2016-12-01] MEDS: CARVEDILOL 12.5 MG TAB PO SCH (07:43)
[2016-12-01] MEDS: MAGNESIUM OXIDE 400 MG TAB PO SCH (07:45)
[2016-12-01] MEDS: FOLIC ACID 1 MG TAB PO SCH (07:45)
[2016-12-01] MEDS: DOCUSATE SODIUM 50 MG/SENNA 8.6 MG TAB PO SCH (07:45)
[2016-12-01] MEDS: POLYETHYLENE GLYCOL 17 GM PKG PO SCH (07:46)
[2016-12-01] MEDS: NITROFURANTOIN MONOHYD MACROCR 100 MG CAP PO SCH (07:46)
[2016-12-01] MEDS: FERROUS SULFATE 325 MG (65 MG ELEMENTAL IRON) TAB PO SCH (07:46)
[2016-12-01] MEDS: TOLTERODINE TARTRATE 4 MG CAP LA PO SCH (07:46)
[2016-12-01] MEDS: LISINOPRIL 20 MG TAB PO SCH (07:46)
[2016-12-01] MEDS: NIFEdipine 90 MG SUSTAINED RELEASE TAB PO SCH (07:47)
[2016-12-01] MEDS: SODIUM CHLORIDE 0.9% FLUSH 5 ML FLUSH IVF SCH (07:47)
[2016-12-01] MEDS ORDERED: MAGNESIUM HYDROXIDE SUSP 30 ML CUP PO PRN (08:30)
[2016-12-01] MEDS ORDERED: BISACODYL 10 MG SUPP RECTAL PRN (09:00)
--- NOTE | 2016-12-01 10:28 | HHI.DCPOC ---
Discharge Care Plan Diagnosis: (1) Cervical disc disease with myelopathy (2) Cervical spinal stenosis (3) Cervical myelopathy (4) Stenosis, spinal, thoracic (5) Leg weakness, bilateral Goals to Promote Your Health * To prevent worsening of your condition and complications * To maintain your health at the optimal level Directions to Meet Your Goals Take your medications as prescribed Follow your dietary instruction Follow activity as directed Keep your appointments as scheduled Take your immunizations and boosters as scheduled If your symptoms worsen call your PCP, if no PCP go to Urgent Care Center or Emergency Room Smoking is Dangerous to Your Health. Avoid second hand smoke Call the 24-hour hour crisis hotline for domestic abuse at Plan is for acute rehab at [facility] for a couple weeks at discharge. Then admission to an assisted living facility with a follow up office visit. At the office visit plans will be made to admit the patient back into the hospital for further surgery to the lumbar spine. Jeff Talbert Dec 01, 2016 10:27 Sav Eddy MD Jan 23, 2017 07:58
--- NOTE | 2016-12-01 10:35 | HHI.DS ---
Jeff TalbertNegrito [facility] 12/01/16 1035: Discharge Summary Admission Date Nov 18, 2016 at 21:59 Discharge Date: Dec 01, 2016 Admitting Diagnosis cervical myelopathy, left upper extremity DVT (1) Cervical spinal stenosis ICD Code: M48.02 - Spinal stenosis, cervical region (2) Cervical disc disease with myelopathy ICD Code: M50.00 - Cervical disc disorder with myelopathy, unspecified cervical region (3) HTN (hypertension) ICD Code: I10 - Essential (primary) hypertension (4) Leg weakness, bilateral ICD Code: R29.898 - Other symptoms and signs involving the musculoskeletal system (5) Left upper extremity deep vein thrombosis ICD Code: I82.622 - Acute embolism and thrombosis of deep veins of left upper extremity (6) Stenosis, spinal, thoracic ICD Code: M48.04 - Spinal stenosis, thoracic region Procedures : 1. C3 laminoplasty, titanium plate, composite allograft bone 2. Bilateral inferior C2 and superior C4 decompressive semi-laminectomy 3. Preparation of allograft bone for laminoplasty bone graft. : Procedure #1 - Revision C2 and C4 decompressive semi-laminectomy for cervical spinal cord decompression Procedure #2 - Bilateral T10-11 decompressive semi-laminectomy for spinal cord decompression Brief History 81-year-old female previously admitted to [facility] through the emergency room July 2016 with a 7 month history of progressive upper extremity and lower extremity weakness and sensory loss with inability to ambulate. Initial imaging studies revealed severe mid cervical stenosis with significant signal intensity changes within the cord. Patient underwent anterior and posterior decompression as follows: 08/08/16 C4 5 and C6 7 anterior cervical discectomy, resection herniated nucleus pulposus and posterior osteophytic disc complexes-microtechnique. C4 5 and C6 7 anterior interbody fusion with composite allograft bone. C4 5 and C6 7 anterior cervical instrumentation 08/15/16 - bilateral C4, C5, C6, C7 decompressive semi-laminectomy, medial facetectomy for dorsal spinal cord decompression with bilateral C4-C7 posterior instrumentation, bilateral C7 pedicle screw fixation and bilateral C4-C7 posterior fusion with local autograft and allograft bone The patient was seen in the office for follow-up within the past week and a postoperative CT scan revealed good incorporation of the graft and instrumentation. The patient was doing very well at that time was significant improvement in her severe preoperative quadriparesis, starting to ambulate with a walker. Patient snf facility contacted neurosurgery office today indicating increased numbness in the upper extremities today. Patient brought into the emergency room for further evaluation with MRI scan accomplished which reveals new areas of upper cervical stenosis with cord compression and question of infection. CBC/BMP: 11/29/16 0738 11/30/16 0828 Significant Findings Laboratory Tests Test 11/28/16 11/28/16 11/28/16 11/28/16 13:45 15:45 16:00 19:45 Red Blood Count 2.64 MIL/MM3 3.46 MIL/MM3 (4.00-5.30) (4.00-5.30) Hemoglobin 8.1 GM/DL 10.6 GM/DL (11.6-15.3) (11.6-15.3) Hematocrit 23.3 % 30.4 % (35.0-46.0) (35.0-46.0) Monocytes (%) (Auto) 9.4 % (0.0-8.0) Eosinophils (%) (Auto) 7.3 % (0.0-4.0) 4.3 % (0.0-4.0) Estimat Glomerular Filtration 83 ML/MIN (>89) Rate Random Glucose 116 MG/DL (74-106) Calcium Level 8.4 MG/DL (8.5-10.1) Blood Gas Base Excess 2.8 mmol/L (-2-2) Arterial Blood pH 7.48 (7.380-7.420) Arterial Blood Partial 36 mmHg (38-42) Pressure CO2 Arterial Blood Partial 364 mmHg Pressure O2 (61-120) Arterial Blood Oxygen Content 24.7 Vol % (12.0-20.0) Blood Gas Hemoglobin 17.5 G/DL (12.0-16.0) Neutrophils (%) (Auto) 75.9 % (16.0-70.0) Lymphocytes # (Auto) 0.8 TH/MM3 (1.0-4.8) Test 11/28/16 11/29/16 11/29/16 11/30/16 20:57 07:35 07:38 08:28 Sodium Level 135 MEQ/L 134 MEQ/L (136-145) (136-145) Estimat Glomerular Filtration 87 ML/MIN (>89) 74 ML/MIN (>89) 73 ML/MIN (>89) Rate Random Glucose 190 MG/DL 107 MG/DL (74-106) (74-106) Calcium Level 8.4 MG/DL 8.3 MG/DL (8.5-10.1) (8.5-10.1) Red Blood Count 3.37 MIL/MM3 (4.00-5.30) Hemoglobin 10.1 GM/DL (11.6-15.3) Hematocrit 29.7 % (35.0-46.0) Neutrophils (%) (Auto) 79.0 % (16.0-70.0) Monocytes (%) (Auto) 8.5 % (0.0-8.0) Lymphocytes # (Auto) 0.8 TH/MM3 (1.0-4.8) Phosphorus Level 1.9 MG/DL (2.5-4.9) Hospital Course 11/18: 81-year-old female previously admitted to [facility] through the emergency room July 2016 with a 7 month history of progressive upper extremity and lower extremity weakness and sensory loss with inability to ambulate. Initial imaging studies revealed severe mid cervical stenosis with significant signal intensity changes within the cord. Patient underwent anterior and posterior decompression as follows: 08/08/16 C4 5 and C6 7 anterior cervical discectomy, resection herniated nucleus pulposus and posterior osteophytic disc complexes-microtechnique. C4 5 and C6 7 anterior interbody fusion with composite allograft bone. C4 5 and C6 7 anterior cervical instrumentation 08/15/16 - bilateral C4, C5, C6, C7 decompressive semi-laminectomy, medial facetectomy for dorsal spinal cord decompression with bilateral C4-C7 posterior instrumentation, bilateral C7 pedicle screw fixation and bilateral C4-C7 posterior fusion with local autograft and allograft bone The patient was seen in the office for follow-up within the past week and a postoperative CT scan revealed good incorporation of the graft and instrumentation. The patient was doing very well at that time was significant improvement in her severe preoperative quadriparesis, starting to ambulate with a walker. Patient snf facility contacted neurosurgery office today indicating increased numbness in the upper extremities today. Patient brought into the emergency room for further evaluation with MRI scan accomplished which reveals new areas of upper cervical stenosis with cord compression and question of infection. 11/19: doing well, stable overnight. no new complaints currently 11/20: says she had a very good night, very happy with her care. no new complaints. awaiting for surgery tu11/21: The patient is doing well when seen this afternoon. She complained of neck pain then said it was to both shoulders. She had no other complaints. She did say that her legs buckle under her. 11/22: Patient went for a C3 laminoplasty w/titanium plate & composite allograft bone and bilateral inferior C2 & superior C4 decompressive semi-laminectomy. Post-operatively the patient did well and was returned to her room on a med/ surg floor. 11/23: This morning the patient states she is in pain. Nursing is in the room and has her morning meds including tramadol. She readily interacts, smiles and jokes. She does state the numbness and weakness to her legs is worse than before surgery. 11/24: The patient is doing well when seen and states she isn't in any pain when seen. She states that the numbness and weakness to the extremities is the same. 11/25: The patient states that she isn't doing good today. She is having some neck pain and she is upset that she was not able to take any steps with Physical Therapy today but was to yesterday. She also stated she was nauseated this morning and did endorse not having a bowel movement for a couple days. 11/27: The patient states she has no feeling to the legs today. She had just been placed back in bed from the cardiac chair when seen. 11/28: The patient still reports no feeling to the legs and no change in the numbness to the arms. She is scheduled for the OR today for a revision C2-C4 laminectomy. 11/29: This afternoon the patient complains of pain to the neck when seen. She does state that the numbness and weakness to the extremities has improved after her surgery yesterday. She does state her bottom is sore. 11/30: The patient is asleep when seen but awakens to verbal stimuli. After awakening she is alert and readily interacts. She has no complaints. She said she learned a new trick today and smiles. She puts her arms up about shoulder height and says that was how high she was able to lift them prior to the surgery. Then she grasps at the air like she is climbing a ladder and brings the arms above shoulder level greater than 45 degrees. Pt Condition on Discharge: Good Discharge Disposition: Rehab Inpatient Discharge Instructions DIET: Follow Instructions for: As Tolerated, No Restrictions ACTIVITIES You can perform: Weight Bearing As Ashleigh Activities to Avoid: Lifting/Bending, Strenuous Activity ADDITIONAL Activity Instructio: Wear the cervical collar at all times. Additional Information The plan is to discharge the patient to inpatient acute rehab for a couple weeks at [facility]. At discharge from [facility] she will go to an assisted living facility and then follow up in the office. At her office follow up arrangements will be made to bring the patient back into the hospital for further surgery to her lumbar spine. Sav Eddy MD 01/23/17 0759: Discharge Summary CBC/BMP: 11/29/16 0738 11/30/16 0828 Jeff TalbertP Dec 01, 2016 10:35 Sav Eddy MD Jan 23, 2017 07:59
[2016-12-01 11:29] VITALS: BP 175/73; PULSE 62; RESP 18; TEMP 97.2; O2SAT 95
[2016-12-01 12:09] VITALS: BP 124/57; PULSE 62
--- NOTE | 2016-12-01 12:43 | HHI.PR ---
Subjective Remarks Follow-up visit status post C-spine surgery and redo, bilateral lower extremity weakness, paresthesia, DVT left upper arm, urinary tract infection. Patient seen and examined today. Patient reports that she is doing well. She denies any complaints overnight. States her pain is controlled. She is looking forward to her transfer to [facility]. She denies any complaints of fever or chills. Denies any chest pain or shortness of breath. Denies any nausea, vomiting or abdominal pain. Objective Vitals Vital Signs Date Time Temp Pulse Resp B/P Pulse Ox O2 Delivery O2 Flow Rate FiO2 12/01/16 12:09 62 124/57 12/01/16 11:29 97.2 62 18 175/73 95 12/01/16 07:46 Room Air 12/01/16 07:35 97.2 58 18 154/70 95 12/01/16 00:50 97.9 64 18 173/67 94 11/30/16 20:30 99.1 73 18 168/70 95 11/30/16 15:47 96 21 11/30/16 15:31 98.7 69 16 118/54 96 I/O 11/30/16 11/30/16 11/30/16 12/01/16 12/01/16 12/01/16 07:00 15:00 23:00 07:00 15:00 23:00 Intake Total 480 ml 400 ml 240 ml 240 ml Output Total 1008 ml 650 ml 390 ml Balance -528 ml -250 ml -150 ml 240 ml Intake Oral 480 ml 400 ml 240 ml 240 ml Output Urine Total 1000 ml 650 ml 350 ml Drainage Total 8 ml 40 ml # Voids 0 4 # Bowel Movements 0 0 0 0 Result Diagram: 11/29/16 0738 11/30/16 0828 Imaging Last Impressions Lumbar Spine CT 11/29/16 0000 Signed Impressions: Service Date/Time: Tuesday, November 29, 2016 10:08 - CONCLUSION: 1. Very severe circumferential spinal stenosis and bilateral foraminal narrowing at L2-3. 2. Moderate bilateral foraminal narrowing at L1-2, L3-4, L4-5 and L5-S1 without spinal stenosis at these levels. 3. Limited examination due to artifact related to the extensive fusion hardware extending from L3 through S1. Darrell Ashley MD Thoracic Spine X-Ray 11/28/16 0000 Signed Impressions: Service Date/Time: Monday, November 28, 2016 18:19 - CONCLUSION: Pointer at T10/T11. Kiko Meneses MD Thoracic Spine MRI 11/27/16 0000 Signed Impressions: Service Date/Time: Sunday, November 27, 2016 12:28 - CONCLUSION: 1. Moderate central canal stenosis again noted at the T.10-11 level without significant change. 2. Small posterior disc protrusion at the T5-6 level with mild mass effect on the anterior thecal sac. This is not significantly changed. 3. Stable mild disc bulges. 4. Stable compression fracture deformities of the T4 and T12 vertebral bodies. Shaheed Braxton MD Lumbar Spine MRI 11/27/16 0000 Signed Impressions: Service Date/Time: Sunday, November 27, 2016 12:28 - CONCLUSION: 1. Status post lumbar fusion from L3-S1. 2. Significant artifact through the fused level; nerve root compression or spinal stenosis cannot be evaluated. 3. Moderate central spinal stenosis at L2-3 T2 broad-based disc bulge and hypertrophic facet arthropathy. 4. Status post vertebral augmentation at T12 and L2. 5. No acute bony abnormalities. Xavi Loco MD Cervical Spine CT 11/26/16 0000 Signed Impressions: Service Date/Time: Sunday, November 27, 2016 08:24 - CONCLUSION: 1. Extensive post surgical changes as described above. There is limited visualization of the cervical cord due to streak artifact. 2. Central and left parasagittal blood based protrusion at the C2-3 level with apparent mass effect on the cord. 3. Annular disc bulge at C3-4. Shaheed Braxton MD Cervical Spine MRI 11/23/16 0000 Signed Impressions: Service Date/Time: Wednesday, November 23, 2016 13:13 - CONCLUSION: Significant postsurgical changes as described above. There is persistent high cervical spinal stenosis at the C2-C3 and C3-C4 level Persistent signal changes are present in the cord at C4 and C6. Asad Rajan MD FACR Chest X-Ray 11/21/16 0000 Signed Impressions: Service Date/Time: Monday, November 21, 2016 18:52 - CONCLUSION: 1. Postoperative median sternotomy with CABG. Minimal basal atelectasis or scarring. Compa Desir MD Upper Extremity Ultrasound 11/18/16 5803 Signed Impressions: Service Date/Time: Friday, November 18, 2016 20:25 - CONCLUSION: Positive for deep venous thrombosis in the axillary and brachial veins. Juan Beltre MD Objective Remarks GENERAL: This is a well-nourished, well-developed patient, in no apparent distress. Awake and alert. [place] J Collar in place. SKIN: Warm and dry. No rash. HEENT: Normocephalic. Pupils equal round and reactive. Nose without bleeding. Airway patent. NECK: Trachea midline. Supple. [place] J collar in place. RUSTY drains discontinued. CARDIOVASCULAR: Regular rate and rhythm without murmurs, gallops, or rubs. RESPIRATORY: Clear to auscultation. Breath sounds equal bilaterally. No wheezes , rales, or rhonchi. GASTROINTESTINAL: Abdomen soft, non-tender, nondistended. Bowel Sounds normoactive x4. : Rojas draining clear yellow urine. MUSCULOSKELETAL: Extremities without clubbing, cyanosis. Bilateral lower extremity trace edema. NEUROLOGICAL: Awake and alert. Oriented to time, place, person. Sensation diminished to light touch in all extremities but improving. Good bilateral white sugar syrup operator strength 4/5 on left 5-/5 on right. Bilateral dorsiflexion improved but still weak right > left. Normal speech. Procedures Procedure: 1. C3 laminoplasty, titanium plate, composite allograft bone 2. Bilateral inferior C2 and superior C4 decompressive semi-laminectomy 3. Preparation of allograft bone for laminoplasty bone graft. 11/28/16 1. Revision C2-C4 decompressive semi-laminectomy for cervical spinal cord decompression 2. Bilateral T10-11 decompressive semi-laminectomy for spinal cord decompression Medications and IVs Current Medications Medications (Trade) Dose Ordered Sig/Jin Route Start Time Stop Time Status Last Admin (Tylenol) 650 mg Q6H PRN PO 11/18/16 21:45 11/29/16 07:39 (Zetia) 10 mg HS PO 11/19/16 21:00 11/30/16 19:56 (Ferrous Sulfate) 325 mg BID PO 11/19/16 09:00 12/01/16 07:46 (Folate) 5 mg DAILY PO 11/19/16 09:00 12/01/16 07:45 (Neurontin) 300 mg HS PO 11/19/16 21:00 11/30/16 19:53 (Synthroid) 50 mcg DAILY@07 PO 11/19/16 07:00 12/01/16 05:41 (Mag-Ox) 400 mg BID PO 11/19/16 09:00 12/01/16 07:45 (Theragran M Tab) 1 tab HS PO 11/19/16 21:00 11/30/16 19:53 (Procardia Xl) 90 mg DAILY PO 11/19/16 09:00 12/01/16 07:47 (Miralax) 17 gm DAILY PO 11/19/16 09:00 12/01/16 07:46 (Kandi-Colace) 2 tab BID PO 11/19/16 09:00 12/01/16 07:45 (Detrol La) 4 mg DAILY PO 11/19/16 09:00 12/01/16 07:46 (Coreg) 12.5 mg BID PO 11/19/16 09:00 11/30/16 19:53 (NovoLOG INJ) 3 units ACHS SQ 11/19/16 07:00 Hold 11/20/16 06:13 (Levemir Inj) 12 units HS SQ 11/19/16 21:00 Hold 11/27/16 22:44 (Prinivil) 40 mg DAILY PO 11/19/16 09:00 12/01/16 07:46 (D50w (Vial) Inj) 50 ml UNSCH PRN IV 11/18/16 21:45 (Glucagon Inj) 1 mg UNSCH PRN OTHER 11/18/16 21:45 (Robitussin Dm 200-20 Mg/10 ml Liq) 10 ml Q6H PRN PO 11/21/16 18:00 11/29/16 10:58 (Free Water) 400 ml Q4H PO 11/23/16 07:00 11/30/16 19:00 (Macrobid) 100 mg BIDPC PO 11/24/16 18:00 12/01/16 17:59 12/01/16 07:46 (Ultram) 50 mg Q4H PRN PO 11/28/16 21:00 (Narcan Inj) 0.4 mg UNSCH PRN IV 11/28/16 21:00 (NS Flush) 2 ml UNSCH PRN IVF 11/28/16 21:00 (NS Flush) 2 ml BID IVF 11/28/16 21:00 12/01/16 07:47 (Percocet 5-325 Mg) 1 tab Q4H PRN PO 11/29/16 10:15 12/01/16 11:44 (Dulcolax Supp) 10 mg DAILY PRN RECTAL 12/01/16 09:00 12/01/16 09:43 A/P Problem List: (1) Cervical spinal stenosis ICD Code: M48.02 Status: Acute (2) Cervical disc disease with myelopathy ICD Code: M50.00 Status: Acute (3) HTN (hypertension) ICD Code: I10 Status: Chronic (4) Leg weakness, bilateral ICD Code: R29.898 Status: Acute (5) Left upper extremity deep vein thrombosis ICD Code: I82.622 Status: Acute (6) Stenosis, spinal, thoracic ICD Code: M48.04 Status: Acute Assessment and Plan This is an 81-year-old female patient with past medical history which includes diabetes mellitus, hypertension, hyperlipidemia, coronary artery disease status post coronary artery bypass graft and DVT upper extremity. S/P C-spine surgery 08/08/2016 and 08/15/2016. MRI which reveals new area of upper cervical stenosis with cord compression and question of infection. Patient also has ultrasound left upper extremity which shows DVT of axillary and brachial veins. We've been consulted for assistance with medical management and heparin bridge. Cervical stenosis with lower weakness/paresthesia. Status post surgery but continues to have weakness and paresthesia. Repeat MRI shows persistent cervical stenosis. Continue physical therapy, wound care, incentive spirometry and pain management. - Patient status post revision C2 and C4 decompressive similar laminectomy for cervical cord decompression and bilateral T10-T11 decompressive semi- laminectomy for spinal cord decompression 11/28/16. Patient found to have residual hypertrophic ligament and osteophyte with moderate epidural hematoma at the C2 3 and C3 4 levels as well as severe dorsal T10 11 osteophyte with calcified ligamentum flavum markedly adherent to the thecal sac with significant bilateral facet arthropathy and ligamentum hypertrophy causing severe spinal canal stenosis. - Continue on Tramadol 50mg q4h prn pain 3-5 and Percocet 5/325 1 tab q4h prn pain 6-10. - Xarelto on hold - will resume once cleared by neurosurgery. - Continue with PT/OT. - Patient to be admitted to [facility] for comprehensive rehabilitation DVT left upper arm - Xarelto on hold secondary to surgical intervention yesterday. Per neurosurgeries note from yesterday, continue to hold anticoagulation at present. Hypothyroidism - continue home Synthroid 50 mcg by mouth daily dose. - last TSH in system was 1.370 08/02/16. TSH 2.750. Diabetes mellitus - previously on home Levemir 12 units subcutaneous daily at bedtime and preprandial NovoLog 3 units subcutaneous before meals - continue to monitor Accu-Cheks before meals and at bedtime with sliding scale insulin coverage. - Levemir on hold secondary to nothing by mouth status for yesterday's surgical procedure. Diabetic diet resumed. Blood sugars 120 this morning. We will continue to monitor blood sugars will reinitiate scheduled insulin when indicated. Hypertension, stable - Continue home medications which include carvedilol ER 40 mg by mouth daily , lisinopril 40 mg by mouth daily and nifedipine 90 mg by mouth daily Hyperlipidemia stable - Hold Crestor 10 minutes by mouth daily at bedtime per neurosurgery as may be contributing to patient's complaints of muscle weakness. - Continue Zetia 10 mg by mouth daily at bedtime Escherichia coli UTI. - will complete Macrobid treatment today Hyponatremia - resolved Postoperative anemia secondary to acute blood loss. - appears stable postoperatively - Continue to monitor as indicated Hypophosphatemia - replete - recheck in few days Constipation - no BM x 5 days - continue with Kandi Colace and Miralax - Dulcolax suppository given - 1/2 btl Mag citrate now - monitor for BM DVT prophylaxis with SCD. Chemoprophylaxis on hold per Neurosurgery Discuss with patient, nursing staff, Iwona Driscoll Dec 01, 2016 12:43
[2016-12-01] MEDS ORDERED: MAGNESIUM CITRATE SOLN 300 ML BTL PO ONE (12:45)
[2016-12-01] MEDS ORDERED: POTASSIUM PHOSPHATE/SODIUM PHOSPHATE 250 MG TAB PO SCH (14:00)
[2016-12-30] MEDS ORDERED: DETR4CAP PO (13:15)
[2016-12-30] MEDS ORDERED: OXYC1TAB63 PO (13:15)
[2016-12-30] MEDS ORDERED: NIFE90TA2 PO (13:15)
[2016-12-30] MEDS ORDERED: MAGO400T2 PO (13:15)
[2016-12-30] MEDS ORDERED: THERTAB17 PO (13:15)
[2016-12-30] MEDS ORDERED: POLY17S PO (13:15)
[2016-12-30] MEDS ORDERED: SENN1TAB PO (13:15)
[2016-12-30] MEDS ORDERED: ROSU10 PO (13:15)
[2016-12-30] MEDS ORDERED: COLL30T TOPICAL (13:15)
[2016-12-30] MEDS ORDERED: GABA100C4 PO (13:15)
[2016-12-30] MEDS ORDERED: LEVO50TA4 PO (13:15)
[2016-12-30] MEDS ORDERED: LISI-515 PO (13:15)
[2016-12-30] MEDS ORDERED: FERR325T86 PO (13:15)
[2016-12-30] MEDS ORDERED: XARE10TA PO (13:15)
[2016-12-30] MEDS ORDERED: CARV6.25 PO (13:15)
[2016-12-30] MEDS ORDERED: FOLI1TAB6 PO (13:15)
[2016-12-30] MEDS ORDERED: ZETI10TA5 PO (13:15)
[2016-12-30] MEDS ORDERED: NEUR300C PO (13:15)
[2016-12-30] MEDS ORDERED: NOVOINJ3 SQ (14:43)
[2017-01-04] MEDS ORDERED: COLL30T TOPICAL (13:00)
[2017-01-04] MEDS ORDERED: FLEETSR2 RECTAL (13:00)
[2017-01-04] MEDS ORDERED: MAGNSOL2 PO (13:00)
[2017-01-04] MEDS ORDERED: VITA500C18 PO (13:00)
[2017-01-04] MEDS ORDERED: ZETI10TA5 PO (13:00)
[2017-01-04] MEDS ORDERED: ZINC220T PO (13:00)
[2017-01-04] MEDS ORDERED: BISA10SU3 RECTAL (13:00)
[2017-01-04] MEDS ORDERED: MILKSUS PO (13:00)
== END 2016-12-01 12:45 | DRG 518 ==
LOC: NEPE 17:30 → NEDA 21:59 → N06B 11-19 00:48
PROVIDERS: ADMIT Neurological Surgery; ATTEND Neurological Surgery
PROC: 0PH304Z Insertion of Internal Fixation Device into Cervical Vertebra, Open Approach (ICD-10-PCS; 2016-11-22)
PROC: 0PU30JZ Supplement Cervical Vertebra with Synthetic Substitute, Open Approach (ICD-10-PCS; 2016-11-22)
PROC: 00NW0ZZ Release Cervical Spinal Cord, Open Approach (ICD-10-PCS; principal; 2016-11-22 11:48)
PROC: 01N80ZZ Release Thoracic Nerve, Open Approach (ICD-10-PCS; 2016-11-28)
PROC: 00NW0ZZ Release Cervical Spinal Cord, Open Approach (ICD-10-PCS; 2016-11-28)
PROC: 30233N1 Transfusion of Nonautologous Red Blood Cells into Peripheral Vein, Percutaneous Approach (ICD-10-PCS; 2016-11-28)
DX: M50.01 Cervical disc disorder with myelopathy, high cervical region (principal); G95.19 Other vascular myelopathies; G82.50 Quadriplegia, unspecified; I82.622 Acute embolism and thrombosis of deep veins of left upper extremity; I82.A12 Acute embolism and thrombosis of left axillary vein; I11.0 Hypertensive heart disease with heart failure; N39.0 Urinary tract infection, site not specified; E87.1 Hypo-osmolality and hyponatremia; D62 Acute posthemorrhagic anemia; I50.9 Heart failure, unspecified; M48.02 Spinal stenosis, cervical region; M48.04 Spinal stenosis, thoracic region; M46.02 Spinal enthesopathy, cervical region; M25.78 Osteophyte, vertebrae; M46.04 Spinal enthesopathy, thoracic region; B96.20 Unspecified Escherichia coli [E. coli] as the cause of diseases classified elsewhere; K59.00 Constipation, unspecified; E11.9 Type 2 diabetes mellitus without complications; E03.9 Hypothyroidism, unspecified; E78.5 Hyperlipidemia, unspecified; R20.2 Paresthesia of skin; I25.10 Atherosclerotic heart disease of native coronary artery without angina pectoris; Z79.4 Long term (current) use of insulin; Z87.891 Personal history of nicotine dependence; Z95.1 Presence of aortocoronary bypass graft; Z98.1 Arthrodesis status; Z88.1 Allergy status to other antibiotic agents; Z88.5 Allergy status to narcotic agent; Z88.0 Allergy status to penicillin; Z88.8 Allergy status to other drugs, medicaments and biological substances
CPT/HCPCS: 36430; 71010; 72020; 72125; 72131; 72146; 72148; 72156; 76000; 80048; 81001; 82272; 82550; 82805; 82948; 83735; 83880; 84100; 84443; 84484; 85025; 85027; 85610; 85730; 86850; 86900; 86901; 86920; 87015; 87070; 87077; 87086; 87102; 87116; 87186; 87205; 87206; 93005; 93971; 94002; 94150; 99291; A9579; C1713; J1170; J1580; J1644; J1815; J2250; J2370; J2405; J2710; J3010; J3370; J7040; J7120; L0150; L0172; P9016

== ENCOUNTER 2017-01-05 06:53 | Inpatient (IN) | payer MEDICARE, OTHER ==
[~2017-01-05] VITALS: Ht 157.5 cm; Wt 67.0 kg
[~2017-01-05 06:53] MED LIST changes: -APIDINJ SQ; -BENZ1CAP8 PO; +BISA10SU3 RECTAL; -CARV40 PO; +CARV6.25 PO; +COLL30T TOPICAL; -DIOV160T6 PO; +FLEETSR2 RECTAL; +GABA100C4 PO; -GABA300C5 PO; +LISI-515 PO; -LISI40TA PO; +MAGNSOL2 PO; +MILKSUS PO; +NEUR300C PO; +NOVOINJ3 SQ; +OXYC1TAB63 PO; +THERTAB17 PO; -TRAM-492 PO; -TRAZ50TA12 PO; +TYLE325T PO; +VITA500C18 PO; +XARE10TA PO; +ZINC220T PO
[2017-01-05] MEDS ORDERED: SODIUM CHLORIDE 0.9% INJ 100 ML ONE (07:26)
[2017-01-05] MEDS ORDERED: SODIUM CHLORID 0.9% 500 ML IV PRN (07:30)
[2017-01-05] MEDS ORDERED: LACTATED RINGER'S 1000 ML IV PRN (07:30)
[2017-01-05] MEDS ORDERED: METOPROLOL TARTRATE 25 MG TAB PO PRN (07:30)
[2017-01-05] MEDS ORDERED: CLINDAMYCIN 600 MG/NS 100 ML IV ONE ×2 (07:30)
[2017-01-05] MEDS ORDERED: CHLORHEXIDINE GLUCONATE 2 % 1 PACK (2 CLOTHS) TOPICAL PRN (07:30)
[2017-01-05] MEDS ORDERED: POVIDONE IODINE 5% (ANTISEPSIS KIT) 4 APPLICATIONS EACH NARE PRN (07:30)
[2017-01-05] MEDS ORDERED: INSULIN HUMAN REGULAR 1,000 UNITS/10 ML VIAL SQ PRN (07:30)
[2017-01-05] MEDS ORDERED: GELFOAM SIZE 100 ONE (08:00)
[2017-01-05] MEDS ORDERED: THROMBIN (TOPICAL) 5,000 UNIT VIAL ONE (08:00)
[2017-01-05] MEDS ORDERED: LIDOCAINE 2%/EPINEPHrine PF 1:200,000 20ML SDV ONE (08:00)
[2017-01-05] MEDS ORDERED: GENTAMICIN SULFATE 80 MG/2 ML VIAL ONE (08:01)
[2017-01-05] MEDS ORDERED: DO NOT ADM ANY ANTICOAGULANT DRUGS PRN (10:40)
[2017-01-05] MEDS ORDERED: ONDANSETRON HCL 4 MG/2 ML VIAL IV PUSH PRN (11:45)
[2017-01-05] MEDS ORDERED: BISACODYL 10 MG SUPP RECTAL PRN (11:45)
[2017-01-05] MEDS ORDERED: traMADol HCL 50 MG TAB PO PRN ×2 (11:45)
[2017-01-05] MEDS ORDERED: SODIUM CHLORIDE 0.9% IV ONE (12:46)
[2017-01-05] MEDS ORDERED: ROCURONIUM INJ 50 MG/5 ML SYRINGE IV PUSH ONE (12:46)
[2017-01-05] MEDS ORDERED: NEOSTIGMINE 3 MG/3 ML SYR IV ONE (12:46)
[2017-01-05] MEDS ORDERED: STERILE WATER FOR INJECTION 20 ML VIAL IV ONE (12:46)
[2017-01-05] MEDS ORDERED: LIDOCAINE HCL 1% PF 5 ML AMPULE OTHER ONE (12:46)
[2017-01-05] MEDS ORDERED: ONDANSETRON HCL 4 MG/2 ML VIAL IV PUSH ONE ×2 (12:46)
[2017-01-05] MEDS ORDERED: GLYCOPYRROLATE 0.2 MG/ML VIAL IV ONE (12:46)
[2017-01-05] MEDS ORDERED: DEXAMETHASONE SOD PHOS 4 MG/ML VIAL IV ONE (12:46)
[2017-01-05] MEDS ORDERED: hydrALAZINE HCL 20 MG/ML VIAL IV ONE ×2 (12:46→15:00)
[2017-01-05] MEDS ORDERED: [UNRECOGNIZED DRUG - OTHER] IV ONE (12:46)
[2017-01-05] MEDS ORDERED: PROPOFOL 200 MG/20 ML AMP IV ONE (12:46)
[2017-01-05] MEDS ORDERED: *LABETALOL HCL 100 MG/20 ML VIAL PERIprocedural Use ONLY ONE (13:57)
[2017-01-05] MEDS ORDERED: *ENALAPRILAT 1.25 MG/ML VIAL PERIprocedural Use ONLY ONE (14:14)
[2017-01-05] MEDS ORDERED: hydrALAZINE HCL 20 MG/ML VIAL ONE (14:27)
[2017-01-05] MEDS ORDERED: hydrALAZINE HCL 20 MG/ML VIAL IV PRN (14:53)
[2017-01-05] MEDS: traMADol HCL 50 MG TAB PO PRN ×2 (15:41→21:53)
[2017-01-05 16:00] VITALS: BP 163/70; PULSE 78; RESP 18; TEMP 98.4; O2SAT 96
[2017-01-05 21:17] VITALS: BP 139/63; PULSE 83; RESP 18; TEMP 99.6; O2SAT 95
[2017-01-05] MEDS: GABAPENTIN 300 MG CAP PO SCH (21:52)
[2017-01-05] MEDS: MAGNESIUM OXIDE 400 MG TAB PO SCH (21:52)
[2017-01-05] MEDS: CARVEDILOL 12.5 MG TAB PO SCH (21:52)
[2017-01-05] MEDS: MULTIVITAMINS/MINERALS THERAPEUTIC TAB PO SCH (21:52)
[2017-01-06 01:43] VITALS: BP 137/57; PULSE 65; RESP 18; TEMP 98.4; O2SAT 94
[2017-01-06] MEDS: LEVOTHYROXINE SODIUM 50 MCG TAB PO SCH (05:48)
[2017-01-06 05:56] VITALS: BP 122/56; PULSE 62; RESP 18; TEMP 99.1; O2SAT 93
[2017-01-06 08:17] VITALS: BP 155/60; PULSE 80; RESP 16; TEMP 99.3; O2SAT 93
[2017-01-06] MEDS: NIFEdipine 90 MG SUSTAINED RELEASE TAB PO SCH (09:27)
[2017-01-06] MEDS: FERROUS SULFATE 325 MG (65 MG ELEMENTAL IRON) TAB PO SCH (09:27)
[2017-01-06] MEDS: FOLIC ACID 1 MG TAB PO SCH (09:27)
[2017-01-06] MEDS: CARVEDILOL 12.5 MG TAB PO SCH ×2 (09:27→21:00)
[2017-01-06] MEDS: MAGNESIUM OXIDE 400 MG TAB PO SCH ×2 (09:27→22:38)
[2017-01-06] MEDS: LISINOPRIL 20 MG TAB PO SCH (09:27)
[2017-01-06] MEDS: TOLTERODINE TARTRATE 4 MG CAP LA PO SCH (09:27)
[2017-01-06] MEDS: POLYETHYLENE GLYCOL 17 GM PKG PO SCH (09:27)
[2017-01-06] MEDS ORDERED: GADODIAMIDE PF 287 MG/ML 5 ML VIAL (for RAD MRI) IVCONTRAST ONE (10:51)
[2017-01-06] MEDS: traMADol HCL 50 MG TAB PO PRN ×2 (11:48→22:37)
[2017-01-06 11:50] VITALS: BP 153/66; PULSE 61; RESP 16; TEMP 98.5; O2SAT 94
--- NOTE | 2017-01-06 11:59 | RADRPT ---
EXAM DATE/TIME: 01/06/2017 09:46 [facility] COMPARISON: No previous studies available for comparison. INDICATIONS : Post op infection with wound debridement. CONTRAST: 13 cc Omniscan (gadodiamide) IV MEDICAL HISTORY : Hypertension. Diabetes mellitus type 2. Hypothyroidism. SURGICAL HISTORY : CABG Hysterectomy. Fusion, cervical. fusion, lumbar ENCOUNTER: Subsequent ACUITY: 3 day PAIN SCORE: 3/10 LOCATION: back TECHNIQUE: Multiplanar multisequence MRI of the lumbar spine was performed with and without contrast. FINDINGS: The most caudal appearing lumbar vertebra is numbered as L5. Extensive bilateral transpedicular fixation from L3-S1. There appears to be some degree of spinal jacek nosis at the superior motion segment, L2-3. Old kyphoplasty at T12 and L2. Detailed images as follows : T12-L1: The thecal sac has a normal diameter. No evidence of disc bulge or protrusion. The neural foramina are patent bilaterally. L1-L2: The thecal sac has a normal diameter. No evidence of disc bulge or protrusion. The neural foramina are patent bilaterally. L2-L3: Diffuse disc bulge with facet hypertrophy. This results in significant central spinal stenosis and na rrowing of both neural foramina. L3-L4: Posteriorly fixated level. Spinal canal is widely patent. No foramina are difficult to visualize but appear to be adequate L4-L5: Posteriorly fixated level. Spinal canal is widely patent. I believe the neural foramina are adequate as well although susceptibility artifact limits anatomic detail L5-S1: Posteriorly fixated level. Susceptibility artifact limits anatomic detail. I believe the spinal canal is adequate. Neural foramina are difficult to characterize. CONCLUSION: 1. Extensive posterior fixation with transpedicular screws from L3-S1. Susceptibility artifact limits the regional anatomic detail but I believe the spinal canal and neural foramina are adequate at all the fixated levels. 2. However, there is severe spinal stenosis and foraminal narrowing at the superior motion segment, L 2-3. This could account for patient's current clinical symptoms. 3. Previous kyphoplasty at T12 and L2. Goran Driscoll MD on January 06, 2017 at 11:43 Board Certified Radiologist. This report was verified electronically.
--- NOTE | 2017-01-06 12:24 | RADRPT ---
EXAM DATE/TIME: 01/06/2017 09:46 [facility] COMPARISON: MRI THORACIC SPINE W/O CONTRAST, December 13, 2016, 15:29. SPINE THORACIC LATERAL ONLY, December 17, 2016, 19:38. INDICATIONS : Post op infection with wound debridement. CONTRAST: 13 cc Omniscan (gadodiamide) IV MEDICAL HISTORY : Hypertension. Diabetes mellitus type 2. Hypothyroidism. SURGICAL HISTORY : CABG Hysterectomy. Fusion, cervical. Fusion, lumbar ENCOUNTER: Subsequent ACUITY: 3 day PAIN SCORE: 3/10 LOCATION: back TECHNIQUE: Multiplanar multisequence MRI of the thoracic spine was performed. FINDINGS: MRI is stable again noting a remote kyphoplasty of T12 and stable compression deformity of T4. Additi onally appreciated are posterior soft tissue changes signal intensity dorsal to T10 with laminectomy at this level probably T11 . Cord is normal throughout with no evidence of spinal stenosis. There is no disc protrusion. CONCLUSION: Stable MRI of the thoracic spine with decompressive laminectomy T. 1011 no evidence spinal stenosis o r cord abnormality. Oleg Felix MD on January 06, 2017 at 12:17 Board Certified Radiologist. This report was verified electronically.
--- NOTE | 2017-01-06 12:40 | RADRPT ---
EXAM DATE/TIME: 01/06/2017 09:46 [place] COMPARISON: MRI CERVICAL SPINE W & W/O CONTRAST, December 13, 2016, 15:29. INDICATIONS : Post op infection with wound debridement. CONTRAST: 13 cc Omniscan (gadodiamide) IV MEDICAL HISTORY : Hypertension. Diabetes mellitus type 2. Hypothyroidism. SURGICAL HISTORY : CABG Hysterectomy. Fusion, cervical. lumbar, fusion ENCOUNTER: Subsequent ACUITY: 3 day PAIN SCORE: 3/10 LOCATION: back TECHNIQUE: Multiplanar, multisequence MRI examination of the cervical spine was performed. FINDINGS: Sagittal T1 pre-and postcontrast, T2 and inversion recovery images show extensive surgery with anteri or fixation of C4-5 and C6-7 and contiguous posterior fixation from C4-C7 bilaterally. The same level s show laminectomies extending from C3-4 through what appears to be C5-6. Extensive enhancement in th e soft tissues of the posterior neck in the region of the surgical bed with some regional edema. Unev en nonspecific and could represent postoperative inflammation although a cellulitis/myositis cannot b e excluded. Findings are similar to prior. There also appears to be some focal myelomalacia and edema within the cord at the C4-5 level. The spinal canal otherwise appears to be widely patent. Detailed axial images as follows. C2-C3: Left posterior disc spur. Spinal canal and neural foramina are patent, however. C3-C4: Posterior laminectomy. Spinal canal neural foramina are adequate. C4-C5: Posterior laminectomy. Focal myelomalacia with cord atrophy. Spinal canal and neural foramina are jocy quate C5-C6: Posterior laminectomy. There is narrowing of the left neural foramina which may be severe compromise left C6 nerve root. Spinal canal and right neural foramina are adequate C6-C7: Fixated level. Spinal canal and neural foramina are patent. C7-T1: The thecal sac has a normal configuration. There is no evidence of disc herniation or spinal canal s tenosis. The neural foramina are patent bilaterally. CONCLUSION: 1. Extensive postsurgical changes of anterior fixation at C4-5 and C6-7 and posterior fixation from w hat appears to be C4-C7 bilaterally. 2. Laminectomies from C3-4 through C5-6. There is diffuse edema and enhancement in the regional soft tissues. This may represent postoperative inflammation although cellulitis/myositis cannot be exclude d. Findings are stable. 3. Focal cord atrophy and myelomalacia at C4-5. This is stable. Spinal canal appears to be adequate t hroughout. 4. Foraminal narrowing leftward at C5-6 which may be severe compromise left C6 nerve root. Goran Driscoll MD on January 06, 2017 at 12:24 Board Certified Radiologist. This report was verified electronically.
[2017-01-06 16:00] VITALS: BP 110/48; PULSE 64; RESP 20; TEMP 98.4; O2SAT 93
--- NOTE | 2017-01-06 16:40 | PD.WCN.NOT ---
Wound Consult Description: Consult for wound VAC management per LORETO Talbert Communicated with: LORETO Talbert Recommendation: Today is POD #1 therefore it is not recommended to change wound VAC <1 day after being placed. Recommend for Wound VAC change starting Monday01/09/17. Additional Information: Spoke with BRET Graf and LORETO Talbert regarding wound VAC not recommended to be changed today, instead begin VAC changes starting 01/09/17Monday and this was acceptable to LORETO Talbert Audra [facility] Jan 06, 2017 16:40
--- NOTE | 2017-01-06 17:14 | HHI.NSPN ---
(Jeff Talbert) History Chief Complaint: Pain to the back. (Jeff Talbert) Interval History 01/05: The patient came to [facility] for debridement and wound vac placement to a lumbar surgical incision wound. At admission the patient was also noted to have a thoracic surgical incision wound which was also debrided and had a wound vac placed. Post-operatively the patient was admitted to a regular med/surg floor. 01/06: This afternoon the patient is doing well. She does have some pain to the back at the wound areas. She continues to have her normal numbness and weakness to the extremities. (Jeff Talbert) System Review Comments CONSTITUTIONAL: Patient denies any fever or chills. HEENT: Patient denies any visual or hearing problems. NECK: Patient denies any neck pain. RESPIRATORY: Patient denies any shortness of breath or productive cough. CARDIOVASCULAR: Patient denies any chest pain, palpitations or irregular heartbeat. GASTROINTESTINAL: Patient denies any abdominal pain, nausea, vomiting or incontinence of stool. GENITOURINARY: Patient denies any incontinence of urine. MUSCULOSKELETAL: Patient with pain to the back. She has her chronic weakness to the extremities. NEUROLOGICAL: Patient with her chronic weakness and numbness to the extremities. She denies any headache, dizziness or tingling. (Jeff Talbert) Exam Results 01/04/17 01/04/17 01/05/17 01/05/17 01/06/17 01/06/17 06:00 18:00 06:00 18:00 06:00 18:00 Intake Total 900 ml Output Total 10 ml Balance 890 ml Other 900 ml Output Estimated Blood Loss 10 ml # Voids 1 5 1 # Bowel Movements 0 Vital Signs Date Time Temp Pulse Resp B/P (MAP) Pulse Ox O2 Delivery O2 Flow Rate FiO2 01/06/17 11:50 98.5 61 16 153/66 (95) 94 01/06/17 08:17 99.3 80 16 155/60 (91) 93 01/06/17 05:56 99.1 62 18 122/56 (78) 93 01/06/17 01:43 98.4 65 18 137/57 (83) 94 01/05/17 23:22 18 01/05/17 21:17 99.6 83 18 139/63 (88) 95 01/05/17 16:00 98.4 78 18 163/70 (101) 96 01/05/17 15:02 97.4 66 18 152/69 (96) 99 Room Air 01/05/17 14:30 66 18 173/73 (106) 99 Nasal Cannula 2 01/05/17 13:30 70 18 182/77 (112) 100 Nasal Cannula 2 01/05/17 12:30 71 18 187/79 (115) 100 Nasal Cannula 2 01/05/17 11:30 71 18 161/91 (114) 100 Nasal Cannula 2 01/05/17 11:15 71 20 149/65 (93) 100 Nasal Cannula 2 01/05/17 11:00 70 20 148/65 (92) 100 Nasal Cannula 2 01/05/17 10:45 72 22 161/70 (100) 100 Nasal Cannula 2 01/05/17 10:39 97.8 76 22 159/69 (99) 100 Nasal Cannula 2 (Jeff Talbert) Physical Examination GENERAL: Patient is awake & alert, watching TV. She readily interacts. Her affect is normal. NAD. HEENT: Normocephalic, atraumatic. NECK: [place] J cervical collar in place, midline cervical spine NTTP, no JVD, trachea midline. RESPIRATORY: CTAB w/o W/R/R, equal excursion, nonlaboured, on RA. CARDIOVASCULAR: S1S2 w/RRR w/o M/G/R, radial & pedal pulses 2+ bilaterally, cap refill < 2 sec, 1+ pedal edema. GASTROINTESTINAL: Abdomen soft, nontender, positive bowel sounds. INTEGUMENTARY: Warm, dry & intact except for surgical debridement wounds to thoracic & lumbar spines with wound vac in place at 125 mm negative pressure, sanguinous drainage noted in collection system. MUSCULOSKELETAL: CUMMINS to varying degrees, no evident deformity or clubbing. Back TTP at the thoracic & lumbar wounds. NEUROLOGICAL: AAOx3. Speech clear & appropriate. Follows simple commands w/o difficulty. Decreased sensation to light touch to all extremities. Motor strength: RUE: Hand application lead 4/5, biceps 4/5, triceps 3+/5, deltoid 3+/5. LUE: Hand application lead 3+/5, biceps 4/5, triceps 3+/5, deltoid 3+/5. RLE: Iliopsoas 3/5, quadriceps 3/5, hamstrings 3/5, gastrocnemius 3/5, tibialis anterior 2+/5, extensor hallucis 1/5, extensor digitorum 1/5. LLE: Iliopsoas 3+/5, quadriceps 3/5, hamstrings 3+/5, gastrocnemius 3+/5, tibialis anterior 3+/5, extensor hallucis 3/5, extensor digitorum 3+/5. (Jeff Talbert) Lab, Micro, Other Results Recent Impressions Thoracic Spine MRI 01/06/17 0000 Signed Impressions: Service Date/Time: Friday, January 06, 2017 09:46 - CONCLUSION: Stable MRI of the thoracic spine with decompressive laminectomy T. 1011 no evidence spinal stenosis or cord abnormality. Oleg Felix MD Lumbar Spine MRI 01/06/17 0000 Signed Impressions: Service Date/Time: Friday, January 06, 2017 09:46 - CONCLUSION: 1. Extensive posterior fixation with transpedicular screws from L3-S1. Susceptibility artifact limits the regional anatomic detail but I believe the spinal canal and neural foramina are adequate at all the fixated levels. 2. However, there is severe spinal stenosis and foraminal narrowing at the superior motion segment, L2-3. This could account for patient's current clinical symptoms. 3. Previous kyphoplasty at T12 and L2. Goran Driscoll MD Cervical Spine MRI 01/06/17 0000 Signed Impressions: Service Date/Time: Friday, January 06, 2017 09:46 - CONCLUSION: 1. Extensive postsurgical changes of anterior fixation at C4-5 and C6-7 and posterior fixation from what appears to be C4-C7 bilaterally. 2. Laminectomies from C3-4 through C5-6. There is diffuse edema and enhancement in the regional soft tissues. This may represent postoperative inflammation although cellulitis/myositis cannot be excluded. Findings are stable. 3. Focal cord atrophy and myelomalacia at C4-5. This is stable. Spinal canal appears to be adequate throughout. 4. Foraminal narrowing leftward at C5-6 which may be severe compromise left C6 nerve root. Goran Driscoll MD (Jeff Talbert) Medical Decision Making Impression and Plan Impression: 1. Thoracic surgical incision wound infection 2. Lumbar surgical incision wound infection 3. Chronic cervical myelopathy 4. Chronic lumbar myelopathy MRI lumbar spine demonstrates severe lumbar stenosis that will require surgical decompression once the infection has healed. Patient doing well, remains neurologically intact for self. POD #1 () s/p: Thoracic surgical wound debridement & vac placement Lumbar surgical wound debridement & vac placement Plan: Will change to regular admission. Consult Infectious Disease. PT/OT eval & tx. Turn q2h and keep the patient off the surgical wounds. Continue present care. (Jeff Talbert) Attending Statement The exam, history, and the medical decision-making described in the above note were completed with the assistance of the mid-level provider. I reviewed and agree with the findings presented. I attest that I had a [id number] encounter with the patient on the same day, and personally performed and documented my assessment and findings in the medical record. No change in neurologic exam post op. MRI scans reviewed and discussed with patient. Wound cultures no growth so far . Will discharge to SNF, continue VAC dressings and monitor as outpatient. (Sav Eddy MD) Jeff Talbert Jan 06, 2017 17:14 Sav Eddy MD Jan 06, 2017 18:53
[2017-01-06] MEDS ORDERED: OXYC1TAB63 PO (18:59)
--- NOTE | 2017-01-06 19:02 | HHI.DCPOC ---
Discharge Care Plan Diagnosis: (1) Postoperative wound dehiscence (2) Lumbar canal stenosis (3) Cervical myelopathy Your Health Problems Are: Difficulty with ADL Incision/Drains Skin Breakdown Exercise Tolerance Loss of Movements Chronic Pain Goals to Promote Your Health * To prevent worsening of your condition and complications * To maintain your health at the optimal level Directions to Meet Your Goals Take your medications as prescribed Follow your dietary instruction Follow activity as directed Keep your appointments as scheduled Take your immunizations and boosters as scheduled If your symptoms worsen call your PCP, if no PCP go to Urgent Care Center or Emergency Room Smoking is Dangerous to Your Health. Avoid second hand smoke Call the 24-hour hour crisis hotline for domestic abuse at Sav Eddy MD Jan 06, 2017 19:02
--- NOTE | 2017-01-06 19:07 | HHI.DS ---
Discharge Summary Admission Date Jan 05, 2017 at 15:24 Discharge Date: Jan 07, 2017 Admitting Diagnosis Thoracic and lumbar wound dehiscence (1) Postoperative wound dehiscence Diagnosis: Principal ICD Code: T81.31XA - Disruption of external operation (surgical) wound, not elsewhere classified, initial encounter Status: Acute (2) Lumbar canal stenosis Diagnosis: Secondary ICD Code: M48.06 - Spinal stenosis, lumbar region (3) Cervical myelopathy Diagnosis: Secondary ICD Code: G95.9 - Disease of spinal cord, unspecified Status: Acute Procedures Debridement thoracic and lumbar wound dehiscence, VAC dressing Hospital Course Admitted for above noted procedure. Wound culture no growth at 24 Hr Pt Condition on Discharge: Stable Discharge Disposition: Discharge to SNF Discharge Instructions DIET: Follow Instructions for: As Tolerated, No Restrictions ACTIVITIES You can perform: Partial Weight Bearing Activities to Avoid: Strenuous Activity ADDITIONAL Activity Instructio: Turn side to side Q 2 Hours. DO NOT POSITION FLAT ON BACK Follow up Referrals: Wound Care Clinic Continued Medications: Acetaminophen (Tylenol) 325 Mg Tab 650 MG PO Q6H PRN for PAIN 1-10 AND/OR FEVER >101F, TAB 0 Refills Alendronate (Alendronate) 35 Mg Tab 35 MG PO Q7D for Osteoporosis Prophylaxis, #4 TAB 0 Refills Ascorbic Acid ER (Vitamin C Sr) 500 Mg Caper 500 MG PO DAILY for Nutritional Supplement, CAP 0 Refills Bisacodyl Supp (Bisacodyl Supp) 10 Mg Supp 10 MG RECTAL DAILY PRN for CONSTIPATION, SUPP 0 Refills Carvedilol (Coreg) 6.25 Mg Tab 6.25 MG PO Q12HR, #60 TAB Ezetimibe (Zetia) 10 Mg Tab 10 MG PO HS, #30 TAB 0 Refills Ferrous Sulfate (Ferrousul) 325 Mg Tab 325 MG PO BID, #60 Folic Acid (Folic Acid) 1 Mg Tablet 1 MG PO DAILY, #30 Gabapentin (Neurontin) 300 Mg Cap 300 MG PO HS, #30 CAP Gabapentin (Gabapentin) 100 Mg Cap 100 MG PO BID@0800,1300, #60 CAP Insulin Aspart Inj (Novolog Flexpen Inj) 300 Unit/3 Ml Pen 1 UNIT SQ ACHS for Blood Sugar Management for 30 Days, PEN 0 Refills Sliding Scale: 150-200=2 units,201-250=4 units,251-300=6 units,301-350=8 units,351-400=10 units, 401+=10 units & call Levothyroxine (Levothyroxine) 50 Mcg Tab 50 MCG PO DAILY for Thyroid, #30 TAB 0 Refills Lisinopril (Lisinopril) 20 Mg Tab 20 MG PO DAILY, #30 TAB Magnesium Citrate Liq (Magnesium Citrate Liq) 300 Ml Liq 300 ML PO DIRECTED, BOTTLE 0 Refills Magnesium Hydroxide Liq (Milk of Magnesia Liq) 400 Mg/5 Ml Susp 60 ML PO DAILY PRN for INDIGESTION OR UPSET STOMACH, #1 BOTTLE 0 Refills Magnesium Oxide (Magox 400) 400 Mg Tablet 400 MG PO BID, #60 Multiple Vitamins W/ Minerals (Thera-M) 1 Tab 1 TAB PO HS for Nutritional Supplement, #30 TAB 0 Refills Nifedipine (Nifedipine ER) 90 Mg Tab 90 MG PO DAILY for Blood Pressure Management, #30 TAB Oxycodone-Acetaminophen (Oxycodone-Acetaminophen) 5-325 mg Tab 1 TAB PO Q4H PRN for Pain 4-10, #60 TAB (This prescription has been renewed) Polyethylene Glycol 3350 Powder (Polyethylene Glycol 3350 Powder) 17 Gm Pow 17 GM PO DAILY for Constipation for 30 Days, PKT Rivaroxaban (Xarelto) 10 Mg Tab 10 MG PO DAILY for Blood Clot Prevention, #30 TAB 0 Refills Start on 11/27/16 Rosuvastatin (Crestor) 10 Mg Tab 10 MG PO HS for Cholesterol Management, #30 TAB 0 Refills Sennosides-Docusate Sodium (Senna Plus 8.6-50 mg) 8.6 Mg-50 Mg Tab 1 TAB PO BID, #60 TAB Sodium Phosphates Rectal (Fleet Pediatric Rectal) 3.5-9.5 Gm/66 Ml Enem 66 ML RECTAL DAILY PRN for CONSTIPATION, BOTTLE 0 Refills Tolterodine ER (Detrol LA) 4 Mg Cap 4 MG PO DAILY for Urinary Symptom Managemen, #30 CAP 0 Refills Zinc Sulfate (Zinc Sulfate) 220 Mg Tab 220 MG PO DAILY for Nutritional Supplement, TAB 0 Refills Discontinued Medications: Collagenase (Santyl) 250 Unit/Gram Oin 1 APPLIC TOPICAL DAILY for 30 Days, TUBE Apply to the surgical wounds in the thoracic area Sav Eddy MD Jan 06, 2017 19:07
[2017-01-06 20:00] VITALS: BP 119/53; PULSE 59; RESP 18; TEMP 98.7; O2SAT 95
--- NOTE | 2017-01-06 20:13 | PD.OP ---
Operative Report Date of Surgery: Jan 06, 2017 Preoperative Diagnosis: (1) Postoperative wound dehiscence (2) Lumbar canal stenosis (3) Cervical myelopathy Postoperative thoracic and lumbar wound dehiscence Postoperative Diagnosis: (1) Postoperative wound dehiscence (2) Lumbar canal stenosis (3) Cervical myelopathy Postoperative thoracic and lumbar wound dehiscence Procedure: 1. Debridement thoracic postoperative wound dehiscence. 2. Debridement lumbar postoperative wound dehiscence 3. Application of thoracic and lumbar VAC dressing Surgeon: Sav Eddy Product Safety Specialist(s): None Operation and Findings: The patient was brought into the operating room and general endotracheal anesthesia induced without difficulty Lines were established. Anesthesia She was placed in prone position on the concentric Arcadio table with the side bolsters and all extremities appropriately padded The thoracic and lumbar areas were sterilely prepped and draped. Appropriate timeout procedure was performed with all personnel present and in agreement 1% Xylocaine with epinephrine was used for local infiltration at the operative sites The eschar at the thoracic and lumbar wound dehiscence sites was debrided with the 10 blade knife down to pink healthy bleeding tissue. The deep aspect of the wound site was explored. The thoracic wound extended down to the spinous process-lamina junction on the left side. The lumbar wound dehiscence extended to the deep fascial layer which was otherwise intact No purulence was noted. Deep wound cultures were obtained and sent for routine cultures The VAC dressing sponge was cut to the proper dimensions for each area of wound dehiscence and the adhesive dressing and suction applied. The patient was taken to recovery room in stable condition All specimens were correct at the end of the case Estimated blood loss was 10 cc Sav Eddy MD Jan 06, 2017 20:13
[2017-01-06] MEDS: MULTIVITAMINS/MINERALS THERAPEUTIC TAB PO SCH (22:37)
[2017-01-06] MEDS: GABAPENTIN 300 MG CAP PO SCH (22:37)
[2017-01-07] VITALS: BP 123/56; PULSE 53; RESP 18; TEMP 98.7; O2SAT 90
[2017-01-07 04:12] VITALS: BP 100/50; PULSE 58; RESP 16; TEMP 98.3; O2SAT 95
[2017-01-07] MEDS: LEVOTHYROXINE SODIUM 50 MCG TAB PO SCH (06:19)
[2017-01-07] MEDS: traMADol HCL 50 MG TAB PO PRN (06:19)
[2017-01-07 08:00] VITALS: BP 120/61; PULSE 63; RESP 20; TEMP 98.6; O2SAT 89
[2017-01-07] MEDS: LISINOPRIL 20 MG TAB PO SCH (09:51)
[2017-01-07] MEDS: FOLIC ACID 1 MG TAB PO SCH (09:51)
[2017-01-07] MEDS: FERROUS SULFATE 325 MG (65 MG ELEMENTAL IRON) TAB PO SCH (09:51)
[2017-01-07] MEDS: CARVEDILOL 12.5 MG TAB PO SCH (09:51)
[2017-01-07] MEDS: NIFEdipine 90 MG SUSTAINED RELEASE TAB PO SCH (09:51)
[2017-01-07] MEDS: TOLTERODINE TARTRATE 4 MG CAP LA PO SCH (09:52)
[2017-01-07] MEDS: POLYETHYLENE GLYCOL 17 GM PKG PO SCH (09:52)
[2017-01-07] MEDS: MAGNESIUM OXIDE 400 MG TAB PO SCH (09:52)
[2017-01-07] MEDS ORDERED: INFLUENZA VIRUS VACCINE (QUADRIVALENT) 0.5 ML SYR IM ONE (10:00)
[2017-01-07] MEDS ORDERED: OXYC-392 PO (10:33)
--- NOTE | 2017-01-07 12:33 | HHI.NSPN ---
(Myrtle Trotter) Note Status Status: Progress Note (Myrtle Trotter) Interval History Interval History 01/05: The patient came to [facility] for debridement and wound vac placement to a lumbar surgical incision wound. At admission the patient was also noted to have a thoracic surgical incision wound which was also debrided and had a wound vac placed. Post-operatively the patient was admitted to a regular med/surg floor. 01/06: This afternoon the patient is doing well. She does have some pain to the back at the wound areas. She continues to have her normal numbness and weakness to the extremities. 01/07: doing well today, pain controlled, eager for dc to rehab. no new neuro complaints (Myrtle Trotter) Labs, Micro, & Vital Signs Results Date Time Temp Pulse Resp B/P (MAP) Pulse Ox O2 Delivery O2 Flow Rate FiO2 01/07/17 08:00 98.6 63 20 120/61 (80) 89 01/07/17 04:12 98.3 58 16 100/50 (67) 95 01/07/17 00:00 98.7 53 18 123/56 (78) 90 01/06/17 23:37 18 01/06/17 20:00 98.7 59 18 119/53 (75) 95 01/06/17 16:00 98.4 64 20 110/48 (68) 93 Constitutional Vital Signs Date Time Temp Pulse Resp B/P (MAP) Pulse Ox O2 Delivery O2 Flow Rate FiO2 01/07/17 08:00 98.6 63 20 120/61 (80) 89 01/07/17 04:12 98.3 58 16 100/50 (67) 95 01/07/17 00:00 98.7 53 18 123/56 (78) 90 01/06/17 23:37 18 01/06/17 20:00 98.7 59 18 119/53 (75) 95 01/06/17 16:00 98.4 64 20 110/48 (68) 93 (Myrtle Trotter) Physical Exam Awake, alert. Speech is fluent and appropriate. Wound vac in place with good suction CN: pupils equal, facial motor symmetric Neck: immobilized by Eva J collar Motor strength: RUE: Hand automotive sales associate 4/5, biceps 4/5, triceps 3+/5, deltoid 3+/5. LUE: Hand automotive sales associate 3+/5, biceps 4/5, triceps 3+/5, deltoid 3+/5. RLE: Iliopsoas 3/5, quadriceps 3/5, hamstrings 3/5, gastrocnemius 3/5, tibialis anterior 2+/5, extensor hallucis 1/5, extensor digitorum 1/5. LLE: Iliopsoas 3+/5, quadriceps 3/5, hamstrings 3+/5, gastrocnemius 3+/5, tibialis anterior 3+/5, extensor hallucis 3/5, extensor digitorum 3+/5. (Myrtle Trotter) Medications Current Medications Current Medications Medications (Trade) Dose Ordered Sig/Jin Route PRN Reason Start Time Stop Time Status Last Admin Dose Admin Lactated Ringer's 1,000 ml @ 30 mls/hr Q24H PRN IV SEE LABEL COMMENTS 01/05/17 07:30 01/08/17 07:29 01/05/17 07:50 Sodium Chloride 500 ml @ 30 mls/hr [id number] PRN IV SEE LABEL COMMENTS 01/05/17 07:30 01/08/17 07:29 Metoprolol Tartrate (Lopressor) 25 mg SODA DRIER FEEDER PRN PO SEE LABEL COMMENTS 01/05/17 07:30 01/08/17 07:29 Povidone Iodine (Betadine 5% Antisepsis Kit) 1 applic SODA DRIER FEEDER PRN EACH NARE SEE LABEL COMMENTS 01/05/17 07:30 01/08/17 07:29 01/05/17 07:30 Chlorhexidine Gluconate (Chlorhexidine 2% Cloth) 3 pack SODA DRIER FEEDER PRN TOPICAL SEE LABEL COMMENTS 01/05/17 07:30 01/08/17 07:29 01/05/17 07:00 Insulin Human Regular (NovoLIN R INJ) See Protocol Table ... SODA DRIER FEEDER PRN SQ SEE PROTOCOL TABLE 01/05/17 07:30 01/08/17 07:29 Lisinopril (Prinivil) 40 mg DAILY PO 01/06/17 09:00 01/07/17 09:51 Carvedilol (Coreg) 12.5 mg Q12HR PO 01/05/17 21:00 01/07/17 09:51 Nifedipine (Procardia Xl) 90 mg DAILY PO 01/06/17 09:00 01/07/17 09:51 Levothyroxine Sodium (Synthroid) 50 mcg DAILY@0600 PO 01/06/17 06:00 01/07/17 06:19 Magnesium Oxide (Mag-Ox) 400 mg Q12HR PO 01/05/17 21:00 01/07/17 09:52 Ferrous Sulfate (Ferrous Sulfate) 325 mg DAILY PO 01/06/17 09:00 01/07/17 09:51 Folic Acid (Folate) 1 mg DAILY PO 01/06/17 09:00 01/07/17 09:51 Gabapentin (Neurontin) 300 mg HS PO 01/05/17 21:00 01/06/17 22:37 Polyethylene Glycol (Miralax) 17 gm DAILY PO 01/06/17 09:00 01/06/17 09:27 Bisacodyl (Dulcolax Supp) 10 mg DAILY PRN RECTAL CONSTIPATION 01/05/17 11:45 Tolterodine Tartrate (Detrol La) 4 mg DAILY PO 01/06/17 09:00 01/07/17 09:52 Multivitamins/ Minerals Therapeutic (Theragran M Tab) 1 tab HS PO 01/05/17 21:00 01/06/17 22:37 Ondansetron HCl (Zofran Inj) 4 mg Q6HR PRN IV PUSH NAUSEA OR VOMITING 01/05/17 11:45 Tramadol HCl (Ultram) 50 mg Q4H PRN PO PAIN SCALE 3 TO 5 01/05/17 11:45 Tramadol HCl (Ultram) 100 mg Q4H PRN PO PAIN SCALE 6 TO 10 01/05/17 13:30 01/07/17 06:19 (Myrtle Trotter) Medical Decision Making MDM Remarks 81 y/o female with 1. Thoracic surgical incision wound infection 2. Lumbar surgical incision wound infection 3. Chronic cervical myelopathy 4. Chronic lumbar myelopathy s/p Thoracolumbar surgical wound debridement & vac placement 01/05/17 (Myrtle Trotter) Plan Plan Remarks cont VAC therapy with wound care and dressing changes, clear to dc to SNF when bed available f/u Dr. Eddy outpatient (Myrtle Trotter) Attending Statement The exam, history, and the medical decision-making described in the above note were completed with the assistance of the mid-level provider. I reviewed and agree with the findings presented. I attest that I had a [id number] encounter with the patient on the same day, and personally performed and documented my assessment and findings in the medical record. (Rojelio Reyes MD) Myrtle Trotter Jan 07, 2017 12:33 Rojelio Reyes MD Jan 07, 2017 22:37
--- NOTE | 2017-01-07 13:16 | OTSOAPIP ---
TIME SESSION COMPLETED: 1030 PATIENT IN ROOM WITH DAUGHTER. SHE REPORTS RETURNING TO [employer] THIS AFTERNOON AND WILL RESUME THERAPY AT THE [facility]. SHE REQUESTS OT AT HOSPITAL TO DEFER. Therapist: Yamel Hilario OTR/L Signature on file
--- NOTE | 2017-02-06 08:28 | PQ ---
Physician Query Response Document PATIENT: DWAIN SOLIS : 1935 ADMIT DATE: 01/05/2017 3:24 PM DISCH DATE: 01/07/2017 2:15 PM RESPONDING PROVIDER #: [email or web address] QUERY TEXT: Debridement Type Based on your medical judgment, can you further clarify the precise nature, depth, extent, and/or met hods of wound debridement utilized in this case, such as: --EXCISIONAL debridement --NON-EXCISIONAL debridement --Other debridement --Other Specify Based on your medical judgment, can you further clarify the specific structures debrided such as: --Skin --Subcutaneous tissue --Fascia --Muscle --Other Specify Your prompt response is appreciated, please do not hesitate to contact the CDI/Coding Hotline with an y questions, comments,and/or concerns you may have at ext. [phone] The patient's Clinical Indicators include: PER OP REPORT - DEBRIDEMENT OF THORACIC AND LUMBAR WOUND Query created by: Brittney Brooks on 01/10/2017 7:22 AM RESPONSE TEXT: Excisional debridement of skin, subcutaneous tissue and superficial fascia Electronically signed by: Sav Eddy MD 02/06/2017 8:25 AM
== END 2017-01-07 14:15 | DRG 902 ==
LOC: HSDC 06:53 → N05A 15:24
PROVIDERS: ADMIT Neurological Surgery; ATTEND Neurological Surgery
PROC: 2W15X6Z Compression of Back using Pressure Dressing (ICD-10-PCS; 2017-01-05)
PROC: 0JB70ZZ Excision of Back Subcutaneous Tissue and Fascia, Open Approach (ICD-10-PCS; principal; 2017-01-05 08:34)
DX: T81.31XA Disruption of external operation (surgical) wound, not elsewhere classified, initial encounter (principal); G95.9 Disease of spinal cord, unspecified; E11.9 Type 2 diabetes mellitus without complications; Z95.1 Presence of aortocoronary bypass graft; I10 Essential (primary) hypertension; M48.06 Spinal stenosis, lumbar region; E78.5 Hyperlipidemia, unspecified; E03.9 Hypothyroidism, unspecified; Z86.718 Personal history of other venous thrombosis and embolism; Z87.891 Personal history of nicotine dependence; Z88.1 Allergy status to other antibiotic agents; Z88.5 Allergy status to narcotic agent; Z88.0 Allergy status to penicillin; Z88.8 Allergy status to other drugs, medicaments and biological substances
CPT/HCPCS: 72156; 72157; 72158; 82948; 87015; 87070; 87102; 87116; 87205; 87206; A9579; J0360; J1100; J1580; J2405; J2710; J3010; J7120

== ENCOUNTER → 2017-03-27 | Outpatient (CLI) | payer MEDICARE, OTHER ==
[~2017-03-27] MED LIST changes: -COLL30T TOPICAL; +EZET10 PO; +FENT25T T-DERMAL; +METF500T PO; +OXYC-392 PO; +PERC10TA27 PO; -ZETI10TA5 PO
[2017-03-27 10:35] LABS: HEMATOCRIT 27.6 % (35.0-46.0); MEAN CELL VOLUME 85.3 FL (80.0-100.0); MEAN CORPUSCULAR HEMOGLOBIN 28.3 PG (27.0-34.0); MEAN CORPUSCULAR HGB CONC 33.2 % (32.0-36.0); PLATELET COUNT 306 TH/MM3 (150-450); RED BLOOD COUNT 3.23 MIL/MM3 (4.00-5.30); RED CELL DISTRIBUTION WIDTH 15.3 % (11.6-17.2); REVIEW FLAG FINAL; WHITE BLOOD COUNT 6.4 TH/MM3 (4.0-11.0)
[2017-03-27 10:40] LABS: APTT (PATIENT) 36.9 SEC (24.3-30.1); INTERNATIONAL NORMALIZED RATIO 1.1 RATIO; PROTHROMBIN TIME - PATIENT 10.7 SEC (9.8-11.6)
[2017-03-27 10:52] LABS: BICARBONATE 24.6 MEQ/L (21.0-32.0); POTASSIUM 4.5 MEQ/L (3.5-5.1)
--- NOTE | 2017-03-27 11:25 | RADRPT ---
EXAM DATE/TIME: 03/27/2017 11:03 [facility] COMPARISON: No previous studies available for comparison. INDICATIONS : Evaluate for pneumonia, pneumothorax, and communicable disease. Preop for lumbar surgery. MEDICAL HISTORY : Hypertension. Diabetes mellitus type II. Hypothyroidism. SURGICAL HISTORY : CABG. ENCOUNTER: Initial ACUITY: 1 day PAIN SCORE: 3/10 LOCATION: Bilateral chest FINDINGS: The heart is mildly enlarged. Post surgical changes from prior CABG are noted. Lungs are clear without evidence of acute air space disease, congestion, mass densities or effusions. Extensive post surgical changes seen in the cervical spine following both anterior and posterior fusi on. Bone cement is identified in the T12 vertebral body from previous vertebral augmentation. An old mild compression fracture seen in the upper thoracic spine. CONCLUSION: 1. No acute cardiopulmonary process. 2. Status post CABG. 3. Status post surgical fusion 4. Status post lower thoracic vertebral augmentation Xavi Loco MD on March 27, 2017 at 11:21 Board Certified Radiologist. This report was verified electronically.
--- NOTE | 2017-03-28 12:54 | EKG ---
Date Performed: 03/27/2017 Time Performed: 10:22:16 PTAGE: 82 years EKG: Normal Sinus rhythm Artifact makes this substandard for interpretation. First degree AV block. Nonspecific ST segments c annot be excluded due to artifact. Since previous tracing, no significant change noted Borderline ECG PREVIOUS TRACING : 11/18/2016 18.18 DOCTOR: Conner Walls Interpretating Date/Time 03/28/2017 12:51:58
== END ==
LOC: CPRE 09:47
PROVIDERS: ATTEND Neurological Surgery
DX: Z01.810 Encounter for preprocedural cardiovascular examination (principal); M54.16 Radiculopathy, lumbar region; Z01.818 Encounter for other preprocedural examination; Z01.812 Encounter for preprocedural laboratory examination
CPT/HCPCS: 36415; 71020; 80048; 85027; 85610; 85730; 93005

== ENCOUNTER 2017-04-03 06:09 | Inpatient (IN) | payer MEDICARE, OTHER ==
[~2017-04-03] VITALS: Ht 157.5 cm; Wt 67.1 kg
[~2017-04-03 06:09] MED LIST changes: -FENT25T T-DERMAL; -PERC10TA27 PO; -POLY17S PO; -ZINC220T PO
[2017-04-03] MEDS ORDERED: METOPROLOL TARTRATE 25 MG TAB PO PRN (06:30)
[2017-04-03] MEDS ORDERED: SODIUM CHLORID 0.9% 500 ML IV PRN (06:30)
[2017-04-03] MEDS ORDERED: CLINDAMYCIN 600 MG/NS 100 ML IV SCH ×2 (06:30)
[2017-04-03] MEDS ORDERED: CHLORHEXIDINE GLUCONATE 2 % 1 PACK (2 CLOTHS) TOPICAL PRN (06:30)
[2017-04-03] MEDS ORDERED: POVIDONE IODINE 5% (ANTISEPSIS KIT) 4 APPLICATIONS EACH NARE PRN (06:30)
[2017-04-03] MEDS ORDERED: LACTATED RINGER'S 1000 ML IV PRN (06:30)
[2017-04-03] MEDS ORDERED: PROPOFOL 500 MG/50 ML INJ 100 ML ONE ×2 (07:52→13:17)
[2017-04-03] MEDS ORDERED: THROMBIN (TOPICAL) 5,000 UNIT VIAL ONE (08:34)
[2017-04-03] MEDS ORDERED: LIDOCAINE 1%/EPINEPHrine 1:100,000 SOLN 50 ML VIAL ONE (08:35)
[2017-04-03] MEDS ORDERED: GELFOAM SIZE 100 ONE (08:35)
[2017-04-03] MEDS ORDERED: GENTAMICIN SULFATE 80 MG/2 ML VIAL ONE (08:35)
[2017-04-03 11:17] LABS: REVIEW FLAG FINAL
[2017-04-03] MEDS ORDERED: SODIUM CHLOR 0.9% 250 ML INJ 250 ML IV ONE (12:00)
[2017-04-03] MEDS ORDERED: ROCURONIUM INJ 50 MG/5 ML SYRINGE IV PUSH ONE (12:00)
[2017-04-03] MEDS ORDERED: LIDOCAINE HCL 1% PF 5 ML SYRINGE OTHER ONE (12:00)
[2017-04-03] MEDS ORDERED: PROPOFOL 200 MG/20 ML AMP IV ONE (12:00)
[2017-04-03] MEDS ORDERED: SODIUM CHLOR 0.9% 1000 ML INJ 1,000 ML IV ONE (12:00)
[2017-04-03] MEDS ORDERED: LACTATED RINGER'S 1000 ML INJ 2,000 ML IV ONE (12:00)
[2017-04-03] MEDS ORDERED: DEXAMETHASONE SOD PHOS 4 MG/ML VIAL IV ONE (12:00)
[2017-04-03] MEDS ORDERED: ONDANSETRON HCL 4 MG/2 ML VIAL IV PUSH ONE (12:00)
[2017-04-03] MEDS ORDERED: NALOXONE HCL 0.4 MG/ML AMP ONE (13:17)
[2017-04-03 13:46] LABS: HEMATOCRIT 32.8 % (35.0-46.0); REVIEW FLAG FINAL
[2017-04-03] MEDS ORDERED: BUPIVACAINE LIPOSOME PF 1.3% 20 ML VIAL INFIL ONE (13:53)
[2017-04-03] MEDS ORDERED: BUPIVACAINE HCL PF 0.25% 30 ML VIAL ONE (13:53)
[2017-04-03] MEDS ORDERED: BUPIVACAINE LIPOSOME PF 1.3% 20 ML VIAL ONE (13:54)
[2017-04-03] MEDS ORDERED: CLINDAMYCIN PHOS 600 MG/4 ML VIAL ONE (14:02)
[2017-04-03] MEDS ORDERED: ONDANSETRON HCL 4 MG/2 ML VIAL ONE (14:31)
[2017-04-03] MEDS ORDERED: DO NOT ADM ANY ANTICOAGULANT DRUGS PRN (15:13)
[2017-04-03] MEDS ORDERED: NALOXONE HCL 0.4 MG/ML AMP IV PUSH PRN ×2 (15:30)
[2017-04-03] MEDS ORDERED: ALENDRONATE 35 MG PO SCH (15:30)
[2017-04-03] MEDS ORDERED: ACETAMINOPHEN 325 MG TAB PO PRN (15:30)
[2017-04-03] MEDS ORDERED: BISACODYL 10 MG SUPP RECTAL PRN (15:30)
[2017-04-03] MEDS ORDERED: *ENALAPRILAT 1.25 MG/ML VIAL PERIprocedural Use ONLY ONE ×2 (15:31→16:00)
[2017-04-03] MEDS: REMOVE OLD PATCH T-DERMAL SCH (16:00)
--- NOTE | 2017-04-03 16:01 | PD.OP ---
Operative Report Date of Surgery: Apr 03, 2017 Preoperative Diagnosis: (1) Lumbar canal stenosis 1. Severe L2-3 stenosis 2. Chronic myelopathy 3. Status post previous L3-5 fusion Postoperative Diagnosis: (1) Lumbar canal stenosis 1. Severe L2-3 stenosis 2. Chronic myelopathy 3. Status post previous L3-5 fusion Procedure: 1. Bilateral L2-3 decompressive semi-laminectomy, medial facetectomy 2. Bilateral L1-L4 posterolateral fusion with autograft bone, cortical cancellus bone chips, BMP and stem cell matrix. 3. Bilateral L1-4 posterior lateral fusion with pedicle screw fixation, revision existing L3-4 instrumentation Anesthesia: General Surgeon: Sav Eddy Cigarette Carton Sealer(s): Daniela Giang Operation and Findings: Indications: Preoperative imaging studies was severe L2-3 stenosis above previous L3-5 fusion. Previous L2 kyphoplasty. Spontaneous L1-2 fusion Findings: Extremely severe facet and ligament hypertrophy at the L2-3 level was severe canal and lateral recess stenosis. Procedure in detail: The patient was brought into the operating room and general endotracheal anesthesia induced without difficulty. ROBERT hose and sequential compression devices were placed. The Rojas catheter was placed. Lines were established by anesthesia. Leads for intraoperative neuro monitoring were placed and a baseline study obtained. The patient was positioned on the concentric Arcadio table with the side bolsters and all extremities appropriately padded. Appropriate time-out procedure was performed with all personnel present and in agreement. 1% Xylocaine with epinephrine was used for local infiltration over the incision site which was made at the midline at the L1-4 level. The incision was carried sharply down to the lumbodorsal fascia which was incised adjacent to the spinous processes. Kruger elevator was used for subperiosteal elevation of paraspinous musculature and fascia away from the lamina and spinous process of L1-L4 bilateral. The deep self-retaining retractor was placed. The appropriate levels were verified with intraoperative C-arm. Microscope was moved into place and used for the remainder of the procedure including the closure. At the L2-3 level the TPS drill with a 5 mm bone bur was used to remove the inferior two thirds of the more cephalad lamina and the superior aspect of the more caudal lamina along with a moderate amount of the bilateral medial facet, taking care not to disrupt the integrity of the facet or pars intra-articularis. The severely hypertrophied ligamentum flavum was elevated away from the thecal sac with the thin ligament dissector and resected with the 15 blade knife and the Kerrison rongeur out to the level of the deep lateral recess to completely decompress the thecal sac and exiting nerve roots. Extensive adhesions along the dorsal thecal sac were carefully released with the thin ligament dissector and 15 blade knife. The exiting nerve roots were followed to the level of the medial pedicle to ensure that they were well decompressed. At each level on each side, the superior aspect of the more inferior facet along with hypertrophied ligament at the medial foramen were removed with the Kerrison rongeur to perform the bilateral foraminotomy. The nerve roots appeared well decompressed at the end of the procedure. No spinal fluid leakage was encountered. The disc and annulus was visualized to make sure that there was no significant disc displacement or herniation. Bleeding was carefully controlled with the bipolar forceps. There was significant instability noted at the L2-3 facet following the decompression. The entry point to the bilateral L1 and L2 pedicle was decorticated with the TPS drill and the pedicle finder, 4.5 mm tap, and ball-tipped probe were used to prepare the pedicle at the bilateral L1 and L2 level. The 5.5 x 35 mm screws were placed at each level. At the L3 level, care was taken to avoid the previously placed kyphoplasty bone cement within the vertebral body. At the bilateral L3 and L4 levels the bone surrounding the previously placed instrumentation was removed with the TPS drill and the Leksell rongeur. The bone cutting bur was used to cut the mitzi between the L4 and L5 levels. The connections of the mitzi to the previously placed pedicle screws were loosened and the screws removed. The patient had previous stainless steel [employer] instrumentation placed. New 5.5 x 40 and 5.5 x 45 mm Spine Wave titanium screws were placed at the bilateral L3 and L4 levels. A new 5.5 mm titanium mitzi was placed across the newly placed L1 through L4 screws on each side and secured with the torque wrench and antitorque device. Prior to placing the mitzi on each side, the TPS drill with a 5 mm bone bur and the Leksell rongeur was used to deep bleed decorticate the posterior lateral structures at the bilateral L1-L4 level. A mixture of retained lamina autograft, shavings from the decortication, cancellus bone chips, stem cell matrix, and DBM was firmly packed along the decorticated structures prior to mitzi placement. After the mitzi was placed additional bone graft was packed into place on each side bilaterally from L1-L4. A 10 mm flat fluted drain was left in place at the operative site and brought out through an incision in the mid lumbar region and secured to the skin with nylon suture and attached to a bulb suction. The closure was performed with 0 Vicryl interrupted for the deep and superficial fascia, with 3-0 Vicryl interrupted subcutaneous closure, and 4-0 Vicryl running subcuticular closure. A dressing of sterile Mastisol, Steri- Strips, and Primapore was placed. The patient was taken to recovery room in stable condition. All counts were correct at the end of the case. Estimated blood loss was 600 cc. No specimen was sent to pathology Sav Eddy MD Apr 03, 2017 16:00
[2017-04-03] MEDS: 1/2 NS + KCL 20 MEQ INJ 1,000 ML IV SCH (16:04)
[2017-04-03] MEDS ORDERED: hydrALAZINE HCL 20 MG/ML VIAL ONE (16:12)
[2017-04-03] MEDS ORDERED: hydrALAZINE HCL 20 MG/ML VIAL IV ONE (16:30)
[2017-04-03] MEDS ORDERED: hydrALAZINE HCL 20 MG/ML VIAL IV PRN (16:30)
--- NOTE | 2017-04-03 16:36 | RADRPT ---
EXAM DATE/TIME: 04/03/2017 09:39 [facility] COMPARISON: No previous studies available for comparison. INDICATIONS : Post-op hardware removal L3-L4. Posterior lumbar fusion L1-L2, L2-L3, L3-L4. MEDICAL HISTORY : None. SURGICAL HISTORY : Fusion, lumbar. ENCOUNTER: Initial ACUITY: 1 day PAIN SCORE: Non-responsive. LOCATION: Lumbar spine. FINDINGS: Transpedicular fixation from L1-L4. L1 and 2 it partially fused. Alignment anatomic.. CONCLUSION: Anatomic alignment Asad Rajan MD FACR on April 03, 2017 at 16:33 Board Certified Radiologist. This report was verified electronically.
[2017-04-03] MEDS ORDERED: INSULIN ASPART 1 UNIT SQ SCH (17:00)
[2017-04-03] MEDS: fentaNYL 25 MCG/HR PATCH T-DERMAL SCH (17:30)
[2017-04-03 19:43] LABS: AUTOMATED NEUTROPHIL # 9.1 TH/MM3 (1.8-7.7); BASOPHIL % 0.3 % (0.0-2.0); HEMATOCRIT 37.4 % (35.0-46.0); HEMO FLAGS DIFF FINAL; LYMPHOCYTE # 0.8 TH/MM3 (1.0-4.8); MEAN CELL VOLUME 84.3 FL (80.0-100.0); MEAN CORPUSCULAR HGB CONC 33.2 % (32.0-36.0); MONO % 1.9 % (0.0-8.0); NEUT % 89.8 % (16.0-70.0); PLATELET COUNT 252 TH/MM3 (150-450); RED BLOOD COUNT 4.43 MIL/MM3 (4.00-5.30); WHITE BLOOD COUNT 10.1 TH/MM3 (4.0-11.0)
[2017-04-03 20:00] VITALS: BP 153/65; PULSE 60; RESP 22; TEMP 98.6; O2SAT 100
[2017-04-03 20:09] LABS: BICARBONATE 25.6 MEQ/L (21.0-32.0); POTASSIUM 5.1 MEQ/L (3.5-5.1)
[2017-04-03] MEDS: FERROUS SULFATE 325 MG (65 MG ELEMENTAL IRON) TAB PO SCH (21:00)
[2017-04-03] MEDS: GABAPENTIN 300 MG CAP PO SCH (21:00)
[2017-04-03] MEDS: DOCUSATE SODIUM 50 MG/SENNA 8.6 MG TAB PO SCH (21:00)
[2017-04-03] MEDS: MAGNESIUM OXIDE 400 MG TAB PO SCH (21:00)
[2017-04-03] MEDS: CARVEDILOL 6.25 MG TAB PO SCH (21:00)
[2017-04-03] MEDS: EZETIMIBE 10 MG TAB PO SCH (21:00)
[2017-04-03] MEDS: MULTIVITAMINS/MINERALS THERAPEUTIC TAB PO SCH (21:00)
[2017-04-03 22:26] VITALS: O2SAT 100
[2017-04-03] MEDS ORDERED: DEXTROSE 50% IN WATER 50 ML VIAL(D50) IV PUSH PRN (23:00)
[2017-04-03] MEDS ORDERED: GLUCAGON 1 MG/ML VIAL OTHER PRN (23:00)
[2017-04-03] MEDS ORDERED: PLEASE DISCONTINUE PREVIOUS SUPPLEMENTAL SCALE INSULIN ORDERS ONE (23:00)
[2017-04-03] MEDS ORDERED: ENALAPRILAT 1.25 MG/ML VIAL IV PUSH PRN (23:45)
[2017-04-04] VITALS (7 sets, daily range): BP systolic 108–170; BP diastolic 41–67; PULSE 60–89; RESP 18–22; TEMP 97.8–98.9; O2SAT 96–100
[2017-04-04] MEDS: 1/2 NS + KCL 20 MEQ INJ 1,000 ML IV SCH ×3 (01:53→21:08)
[2017-04-04] MEDS: INDIVIDUALIZED INSULIN NOVOLOG SUPPLEMENTAL SCALE SQ SCH ×4 (08:00→21:00)
[2017-04-04 08:39] LABS: AUTOMATED NEUTROPHIL # 8.9 TH/MM3 (1.8-7.7); BASOPHIL % 0.3 % (0.0-2.0); EOSINOPHIL % 0.2 % (0.0-4.0); HEMATOCRIT 32.8 % (35.0-46.0); HEMO FLAGS DIFF FINAL; LYMPH % 9.7 % (9.0-44.0); MEAN CELL VOLUME 84.3 FL (80.0-100.0); MEAN CORPUSCULAR HEMOGLOBIN 28.8 PG (27.0-34.0); MEAN CORPUSCULAR HGB CONC 34.1 % (32.0-36.0); MONO % 8.3 % (0.0-8.0); NEUT % 81.5 % (16.0-70.0); PLATELET COUNT 248 TH/MM3 (150-450); RED BLOOD COUNT 3.89 MIL/MM3 (4.00-5.30); RED CELL DISTRIBUTION WIDTH 15.2 % (11.6-17.2); WHITE BLOOD COUNT 10.9 TH/MM3 (4.0-11.0)
[2017-04-04 08:52] LABS: BICARBONATE 24.3 MEQ/L (21.0-32.0); POTASSIUM 4.7 MEQ/L (3.5-5.1)
[2017-04-04] MEDS ORDERED: NON-FORMULARY DRUG (Ascorbic Acid ER (Vitamin C Sr) 500 MG) PO SCH (09:00)
[2017-04-04] MEDS: metFORMIN HCL 500 MG TAB PO SCH ×3 (09:00→18:00)
[2017-04-04] MEDS: LISINOPRIL 20 MG TAB PO SCH (09:08)
[2017-04-04] MEDS: FOLIC ACID 1 MG TAB PO SCH (09:09)
[2017-04-04] MEDS: DOCUSATE SODIUM 50 MG/SENNA 8.6 MG TAB PO SCH ×2 (09:09→21:19)
[2017-04-04] MEDS: NIFEdipine 90 MG SUSTAINED RELEASE TAB PO SCH (09:09)
[2017-04-04] MEDS: CARVEDILOL 6.25 MG TAB PO SCH ×2 (09:09→21:00)
[2017-04-04] MEDS: GABAPENTIN 100 MG CAP PO SCH ×2 (09:09→13:00)
[2017-04-04] MEDS: TOLTERODINE TARTRATE 4 MG CAP LA PO SCH (09:09)
[2017-04-04] MEDS: FERROUS SULFATE 325 MG (65 MG ELEMENTAL IRON) TAB PO SCH ×2 (09:09→21:19)
[2017-04-04] MEDS: MAGNESIUM OXIDE 400 MG TAB PO SCH ×2 (09:09→21:21)
[2017-04-04] MEDS: LEVOTHYROXINE SODIUM 50 MCG TAB PO SCH (09:10)
[2017-04-04] MEDS: oxyCODONE/ACETAMINOPHEN 10 MG/325 MG TAB PO PRN ×2 (09:20→17:30)
--- NOTE | 2017-04-04 11:32 | HHI.NSPN ---
(Jeff Talbert) History Chief Complaint: Back and neck pain. (Jeff Talbert) Interval History 04/03: The patient presented to [facility] to undergo a bilateral L2-3 laminectomy with a bilateral L1 to L4 posterolateral fusion and screw fixation. Post-operatively the patient was admitted to a regular med/surg floor. 04/04: This morning when seen the patient is laying in bed with her friend visiting. She says she is not doing good and complains of back pain and some neck pain. When asked if she has a back brace at home she says she doesn't know where it is. (Jeff Talbert) Exam Results 04/02/17 04/02/17 04/03/17 04/03/17 04/04/17 04/04/17 06:00 18:00 06:00 18:00 06:00 18:00 Intake Total 5200 ml Output Total 1310 ml 505 ml Balance 3890 ml -505 ml Intake IV Total 100 ml Packed Cells 1600 ml Other 3500 ml Output Urine Total 600 ml 400 ml Drainage Total 110 ml 105 ml Estimated Blood Loss 600 ml Vital Signs Date Time Temp Pulse Resp B/P (MAP) Pulse Ox O2 Delivery O2 Flow Rate FiO2 04/04/17 09:41 96 04/04/17 08:00 66 18 154/59 (90) 99 04/04/17 04:00 98.4 64 22 149/57 (87) 98 04/04/17 00:00 98.9 61 22 170/67 (101) 100 04/03/17 22:26 100 Nasal Cannula 2.00 04/03/17 20:00 98.6 60 22 153/65 (94) 100 04/03/17 17:30 98.5 60 16 146/83 (104) 100 Nasal Cannula 2 04/03/17 17:00 62 14 129/59 (82) 100 Nasal Cannula 2 04/03/17 16:45 61 12 124/57 (79) 100 Nasal Cannula 2 04/03/17 16:30 60 13 135/73 (93) 100 Nasal Cannula 2 04/03/17 16:15 57 12 184/73 (110) 100 Nasal Cannula 3 04/03/17 16:00 54 13 194/90 (124) 100 Nasal Cannula 3 04/03/17 15:45 55 15 189/76 (113) 100 Nasal Cannula 3 04/03/17 15:30 59 18 191/79 (116) 100 Simple Mask 6 04/03/17 15:15 98.2 66 21 192/78 (116) 100 Simple Mask 6 04/03/17 07:10 98.4 66 18 156/59 (91) 97 (Jeff Talbert) Physical Examination GENERAL: Awake, readily interacts, flat affect, no apparent distress. NECK: Mildly TTP to midline cervical spine, no JVD, trachea midline. MUSCULOSKELETAL: CUMMINS to varying degree, no deformity or clubbing noted. TTP from mid thoracolumbar spine down. RUSTY drain to bulb suction w/serosanguinous drainage. NEUROLOGICAL: AAOx3. Speech clear & appropriate. Follows simple commands w/o difficulty. Sensation more diminished to light touch to all extremities. Strength 4 to 4+/5 to RUE; 3 to 3+/5 LUE; 2+ to 3 to BLE, some of the weakness may be secondary to pain. (Jeff Talbert) Lab, Micro, Other Results Recent Impressions Lumbar Spine X-Ray 04/03/17 0000 Signed Impressions: Service Date/Time: Monday, April 03, 2017 09:39 - CONCLUSION: Anatomic alignment Asad Rajan MD FACR Laboratory Tests Test 04/03/17 10:54 04/03/17 13:27 04/03/17 18:44 04/04/17 07:14 Hemoglobin 7.8 GM/DL 11.6 GM/DL 12.4 GM/DL 11.2 GM/DL Hematocrit 23.0 % 32.8 % 37.4 % 32.8 % White Blood Count 10.1 TH/MM3 10.9 TH/MM3 Red Blood Count 4.43 MIL/MM3 3.89 MIL/MM3 Mean Corpuscular Volume 84.3 FL 84.3 FL Mean Corpuscular Hemoglobin 28.0 PG 28.8 PG Mean Corpuscular Hemoglobin Concent 33.2 % 34.1 % Red Cell Distribution Width 15.0 % 15.2 % Platelet Count 252 TH/MM3 248 TH/MM3 Mean Platelet Volume 9.0 FL 8.8 FL Neutrophils (%) (Auto) 89.8 % 81.5 % Lymphocytes (%) (Auto) 8.0 % 9.7 % Monocytes (%) (Auto) 1.9 % 8.3 % Eosinophils (%) (Auto) 0.0 % 0.2 % Basophils (%) (Auto) 0.3 % 0.3 % Neutrophils # (Auto) 9.1 TH/MM3 8.9 TH/MM3 Lymphocytes # (Auto) 0.8 TH/MM3 1.0 TH/MM3 Monocytes # (Auto) 0.2 TH/MM3 0.9 TH/MM3 Eosinophils # (Auto) 0.0 TH/MM3 0.0 TH/MM3 Basophils # (Auto) 0.0 TH/MM3 0.0 TH/MM3 CBC Comment DIFF FINAL DIFF FINAL Differential Comment Blood Urea Nitrogen 15 MG/DL 17 MG/DL Creatinine 0.80 MG/DL 0.75 MG/DL Random Glucose 218 MG/DL 120 MG/DL Calcium Level 8.1 MG/DL 8.1 MG/DL Sodium Level 137 MEQ/L 138 MEQ/L Potassium Level 5.1 MEQ/L 4.7 MEQ/L Chloride Level 106 MEQ/L 105 MEQ/L Carbon Dioxide Level 25.6 MEQ/L 24.3 MEQ/L Anion Gap 5 MEQ/L 9 MEQ/L Estimat Glomerular Filtration Rate 69 ML/MIN 74 ML/MIN (Jeff Talbert) Medical Decision Making Impression and Plan Impression: Preoperative Diagnosis: (1) Lumbar canal stenosis 1. Severe L2-3 stenosis 2. Chronic myelopathy 3. Status post previous L3-5 fusion The patient with poor pain control, increased weakness to BLE, patient feels decreased sensation to extremities is worse. . Reviewed labs for today. Mild anaemia. RUSTY output 215 mL as of this morning. POD #1 () s/p: 1. Bilateral L2-3 decompressive semi-laminectomy, medial facetectomy 2. Bilateral L1-L4 posterolateral fusion with autograft bone, cortical cancellus bone chips, BMP and stem cell matrix. 3. Bilateral L1-4 posterior lateral fusion with pedicle screw fixation, revision existing L3-4 instrumentation Postoperative Diagnosis: (1) Lumbar canal stenosis 1. Severe L2-3 stenosis 2. Chronic myelopathy 3. Status post previous L3-5 fusion Plan: Neuro checks. Clear liquid diet. Patient will need brace before mobilising. PT/OT eval & tx once brace available. Monitor RUSTY drain output. CBC in AM. (Jeff Talbert) Attending Statement The exam, history, and the medical decision-making described in the above note were completed with the assistance of the mid-level provider. I reviewed and agree with the findings presented. I attest that I had a [id number] encounter with the patient on the same day, and personally performed and documented my assessment and findings in the medical record. On my examination of 04/04/2017 in the evening, the patient arouses easily. Her respirations are clear and nonlabored. Pulse regular Abdomen soft nontender She is awake and alert conversant and appropriate Strength is mostly 4/5 upper extremities with 2-3/5 lower extremities. Mild drain output Stable postoperative Continue therapy Lower extremity strength seems definitely improved postoperatively so far. Continue insulin sliding scale Continue baseline on antihypertensive medications Plan discharge inpatient rehabilitation per physical therapy orders Initiate OT (Sav Eddy MD) Jeff Talbert Apr 04, 2017 11:32 Sav Eddy MD Apr 05, 2017 00:23
[2017-04-04] MEDS: MAGNESIUM HYDROXIDE SUSP 30 ML CUP PO PRN (21:19)
[2017-04-04] MEDS: EZETIMIBE 10 MG TAB PO SCH (21:19)
[2017-04-04] MEDS: MULTIVITAMINS/MINERALS THERAPEUTIC TAB PO SCH (21:21)
[2017-04-04] MEDS: GABAPENTIN 300 MG CAP PO SCH (21:21)
[2017-04-04] MEDS: fentaNYL 25 MCG/HR PATCH T-DERMAL SCH (21:22)
[2017-04-05] VITALS (8 sets, daily range): BP systolic 106–129; BP diastolic 36–70; PULSE 63–74; RESP 17–22; TEMP 97.5–99; O2SAT 94–98
[2017-04-05] MEDS: oxyCODONE/ACETAMINOPHEN 10 MG/325 MG TAB PO PRN ×3 (00:24→17:27)
[2017-04-05] MEDS: INDIVIDUALIZED INSULIN NOVOLOG SUPPLEMENTAL SCALE SQ SCH ×4 (08:00→21:21)
[2017-04-05] MEDS: GABAPENTIN 100 MG CAP PO SCH ×2 (08:00→13:50)
[2017-04-05 08:17] LABS: HEMATOCRIT 28.3 % (35.0-46.0); MEAN CELL VOLUME 85.1 FL (80.0-100.0); MEAN CORPUSCULAR HEMOGLOBIN 28.4 PG (27.0-34.0); MEAN CORPUSCULAR HGB CONC 33.3 % (32.0-36.0); PLATELET COUNT 232 TH/MM3 (150-450); RED BLOOD COUNT 3.32 MIL/MM3 (4.00-5.30); REVIEW FLAG FINAL; WHITE BLOOD COUNT 8.3 TH/MM3 (4.0-11.0)
[2017-04-05] MEDS: CARVEDILOL 6.25 MG TAB PO SCH ×2 (09:00→21:20)
[2017-04-05] MEDS: NIFEdipine 90 MG SUSTAINED RELEASE TAB PO SCH (09:00)
[2017-04-05] MEDS: LISINOPRIL 20 MG TAB PO SCH (09:00)
[2017-04-05] MEDS: LEVOTHYROXINE SODIUM 50 MCG TAB PO SCH (09:10)
[2017-04-05] MEDS: DOCUSATE SODIUM 50 MG/SENNA 8.6 MG TAB PO SCH ×2 (09:11→21:20)
[2017-04-05] MEDS: MAGNESIUM OXIDE 400 MG TAB PO SCH ×2 (09:11→21:21)
[2017-04-05] MEDS: metFORMIN HCL 500 MG TAB PO SCH ×2 (09:11→17:27)
[2017-04-05] MEDS: TOLTERODINE TARTRATE 4 MG CAP LA PO SCH (09:11)
[2017-04-05] MEDS: FOLIC ACID 1 MG TAB PO SCH (09:11)
[2017-04-05] MEDS: FERROUS SULFATE 325 MG (65 MG ELEMENTAL IRON) TAB PO SCH ×2 (09:11→21:20)
--- NOTE | 2017-04-05 11:04 | HHI.NSPN ---
(Jeff Talbert) History Chief Complaint: Numbness to all extremities. (Jeff Talbert) Interval History 04/03: The patient presented to [facility] to undergo a bilateral L2-3 laminectomy with a bilateral L1 to L4 posterolateral fusion and screw fixation. Post-operatively the patient was admitted to a regular med/surg floor. 04/04: This morning when seen the patient is laying in bed with her friend visiting. She says she is not doing good and complains of back pain and some neck pain. When asked if she has a back brace at home she says she doesn't know where it is. 04/05: When seen this morning the patient is awake in bed. She states that she has numbness to all the extremities that continues to be same as yesterday. She states that it is worse than before she came into the hospital. She also continues to have back pain. She states she doesn't feel like eating. (Jeff Talbert) Exam Results 04/03/17 04/03/17 04/04/17 04/04/17 04/05/17 04/05/17 06:00 18:00 06:00 18:00 06:00 18:00 Intake Total 5200 ml 120 ml 240 ml Output Total 1310 ml 505 ml 125 ml 340 ml Balance 3890 ml -505 ml -5 ml -100 ml Intake Oral 120 ml 240 ml IV Total 100 ml Packed Cells 1600 ml Other 3500 ml Output Urine Total 600 ml 400 ml 125 ml 250 ml Drainage Total 110 ml 105 ml 90 ml Estimated Blood Loss 600 ml # Bowel Movements 0 Vital Signs Date Time Temp Pulse Resp B/P (MAP) Pulse Ox O2 Delivery O2 Flow Rate FiO2 04/05/17 08:00 98.4 63 17 108/36 (60) 95 04/05/17 07:35 95 21 04/05/17 04:00 98.2 66 20 108/55 (72) 98 04/05/17 00:00 97.8 70 20 122/54 (76) 98 04/04/17 20:00 98.3 89 22 108/41 (63) 97 04/04/17 16:00 97.8 63 18 113/45 (67) 98 04/04/17 11:55 97.8 60 18 124/44 (70) 98 04/04/17 09:41 96 04/04/17 08:00 66 18 154/59 (90) 99 04/04/17 04:00 98.4 64 22 149/57 (87) 98 04/04/17 00:00 98.9 61 22 170/67 (101) 100 04/03/17 22:26 100 Nasal Cannula 2.00 04/03/17 20:00 98.6 60 22 153/65 (94) 100 04/03/17 17:30 98.5 60 16 146/83 (104) 100 Nasal Cannula 2 04/03/17 17:00 62 14 129/59 (82) 100 Nasal Cannula 2 04/03/17 16:45 61 12 124/57 (79) 100 Nasal Cannula 2 04/03/17 16:30 60 13 135/73 (93) 100 Nasal Cannula 2 04/03/17 16:15 57 12 184/73 (110) 100 Nasal Cannula 3 04/03/17 16:00 54 13 194/90 (124) 100 Nasal Cannula 3 04/03/17 15:45 55 15 189/76 (113) 100 Nasal Cannula 3 04/03/17 15:30 59 18 191/79 (116) 100 Simple Mask 6 04/03/17 15:15 98.2 66 21 192/78 (116) 100 Simple Mask 6 04/03/17 07:10 98.4 66 18 156/59 (91) 97 (Jeff Talbert) Physical Examination GENERAL: Awake & alert, readily interacts, affect slightly flat, no apparent distress. NECK: Mildly TTP to midline cervical spine, no JVD, trachea midline. MUSCULOSKELETAL: CUMMINS to varying degree, no deformity or clubbing noted. TTP from mid thoracolumbar spine down. RUSTY drain to bulb suction w/serosanguinous drainage. Dependent edema. NEUROLOGICAL: AAOx3. Speech clear & appropriate. Follows simple commands w/o difficulty. Sensation continues to be diminished to light touch to all extremities. Motor strength 4 to 4+/5 to RUE; 3+ to 4/5 LUE. Motor strength to the BLE: iliopsoas 3+/5, quadriceps 1/5, hamstrings 2+/5, anterior tibialis 3 to 3+/5, gastrocnemius 3+/5 & extensor hallucis longus 3/5. (Jeff Talbert) Lab, Micro, Other Results Recent Impressions Lumbar Spine X-Ray 04/03/17 0000 Signed Impressions: Service Date/Time: Monday, April 03, 2017 09:39 - CONCLUSION: Anatomic alignment Asad Rajan MD FACR Laboratory Tests Test 04/03/17 10:54 04/03/17 13:27 04/03/17 18:44 04/04/17 07:14 Hemoglobin 7.8 GM/DL 11.6 GM/DL 12.4 GM/DL 11.2 GM/DL Hematocrit 23.0 % 32.8 % 37.4 % 32.8 % White Blood Count 10.1 TH/MM3 10.9 TH/MM3 Red Blood Count 4.43 MIL/MM3 3.89 MIL/MM3 Mean Corpuscular Volume 84.3 FL 84.3 FL Mean Corpuscular Hemoglobin 28.0 PG 28.8 PG Mean Corpuscular Hemoglobin Concent 33.2 % 34.1 % Red Cell Distribution Width 15.0 % 15.2 % Platelet Count 252 TH/MM3 248 TH/MM3 Mean Platelet Volume 9.0 FL 8.8 FL Neutrophils (%) (Auto) 89.8 % 81.5 % Lymphocytes (%) (Auto) 8.0 % 9.7 % Monocytes (%) (Auto) 1.9 % 8.3 % Eosinophils (%) (Auto) 0.0 % 0.2 % Basophils (%) (Auto) 0.3 % 0.3 % Neutrophils # (Auto) 9.1 TH/MM3 8.9 TH/MM3 Lymphocytes # (Auto) 0.8 TH/MM3 1.0 TH/MM3 Monocytes # (Auto) 0.2 TH/MM3 0.9 TH/MM3 Eosinophils # (Auto) 0.0 TH/MM3 0.0 TH/MM3 Basophils # (Auto) 0.0 TH/MM3 0.0 TH/MM3 CBC Comment DIFF FINAL DIFF FINAL Differential Comment Blood Urea Nitrogen 15 MG/DL 17 MG/DL Creatinine 0.80 MG/DL 0.75 MG/DL Random Glucose 218 MG/DL 120 MG/DL Calcium Level 8.1 MG/DL 8.1 MG/DL Sodium Level 137 MEQ/L 138 MEQ/L Potassium Level 5.1 MEQ/L 4.7 MEQ/L Chloride Level 106 MEQ/L 105 MEQ/L Carbon Dioxide Level 25.6 MEQ/L 24.3 MEQ/L Anion Gap 5 MEQ/L 9 MEQ/L Estimat Glomerular Filtration Rate 69 ML/MIN 74 ML/MIN Test 04/05/17 06:30 White Blood Count 8.3 TH/MM3 Red Blood Count 3.32 MIL/MM3 Hemoglobin 9.4 GM/DL Hematocrit 28.3 % Mean Corpuscular Volume 85.1 FL Mean Corpuscular Hemoglobin 28.4 PG Mean Corpuscular Hemoglobin Concent 33.3 % Red Cell Distribution Width 15.0 % Platelet Count 232 TH/MM3 Mean Platelet Volume 8.7 FL (Jeff Talbert) Medical Decision Making Impression and Plan Impression: Preoperative Diagnosis: (1) Lumbar canal stenosis 1. Severe L2-3 stenosis 2. Chronic myelopathy 3. Status post previous L3-5 fusion The patient continues to have poor pain control, some improvement in weakness, patient feels numbness to extremities is worse. . Reviewed labs for today. Interval worsening of anaemia. RUSTY output 90 mL as of this morning for the past 24 hrs. POD #2 () s/p: 1. Bilateral L2-3 decompressive semi-laminectomy, medial facetectomy 2. Bilateral L1-L4 posterolateral fusion with autograft bone, cortical cancellus bone chips, BMP and stem cell matrix. 3. Bilateral L1-4 posterior lateral fusion with pedicle screw fixation, revision existing L3-4 instrumentation Postoperative Diagnosis: (1) Lumbar canal stenosis 1. Severe L2-3 stenosis 2. Chronic myelopathy 3. Status post previous L3-5 fusion Plan: Neuro checks. Full liquid diet and advance as tolerated. TLSO brace when OOB. Mobilise patient w/assistance. PT/OT eval & tx. Monitor RUSTY drain output. CBC in AM. ADDENDUM at 1511: At 1400 I returned a call from Nursing regarding the patient's demeanor. Nursing reported that the patient was depressed and stated that she wanted to because her had . When Physical Therapy came in she did not participate but let them do everything. The patient had a blood glucose of 78 and the patient didn't want to eat according to Nursing. After some coaxing Nursing stated that the patient did eat a little and that the patient's demeanor was somewhat better when we spoke. Discussed with Dr Eddy who concurs with ordering a Psych consult. BET (Jeff Talbert) Attending Statement The exam, history, and the medical decision-making described in the above note were completed with the assistance of the mid-level provider. I reviewed and agree with the findings presented. I attest that I had a [id number] encounter with the patient on the same day, and personally performed and documented my assessment and findings in the medical record. Patient's examination reveals relatively stable sensorimotor function compared to preoperative. Seems somewhat depressed today No suicidal thoughts but has not cooperated well with therapists today. Has no initiative to mobilize out of bed which is unusual for her. Psychiatry evaluation pending. (Sav Eddy MD) Jeff Talbert Apr 05, 2017 11:04 Sav Eddy MD Apr 07, 2017 19:19
[2017-04-05] MEDS: 1/2 NS + KCL 20 MEQ INJ 1,000 ML IV SCH ×2 (13:50→17:28)
[2017-04-05] MEDS: MULTIVITAMINS/MINERALS THERAPEUTIC TAB PO SCH (21:20)
[2017-04-05] MEDS: EZETIMIBE 10 MG TAB PO SCH (21:21)
[2017-04-05] MEDS: GABAPENTIN 300 MG CAP PO SCH (21:21)
[2017-04-06] VITALS: BP 122/71; PULSE 83; RESP 20; TEMP 99; O2SAT 97
--- NOTE | 2017-04-06 02:54 | RADRPT ---
EXAM DATE/TIME: 04/06/2017 01:53 CORRECTION Corrected on: April 06, 2017; [facility] COMPARISON: SPINE THORACIC LATERAL ONLY, December 17, 2016, 19:38. MRI THORACIC SPINE W & W/O CONTRAST, 2016, 9:46. MRI THORACIC SPINE W/O CONTRAST, December 13, 2016, 15:29. INDICATIONS : Unable to lift legs s/p lumbar fusion 04/04/17. MEDICAL HISTORY : Diabetes mellitus type 2. Congestive heart failure. SURGICAL HISTORY : CABG Fusion, cervical. Fusion, lumbar. ENCOUNTER: Subsequent ACUITY: 4-6 days PAIN SCORE: 5/10 LOCATION: Paraspinal TECHNIQUE: Multiplanar multisequence MRI of the thoracic spine was performed. FINDINGS: VERTEBRA: There is a compression deformity at the inferior aspect of the T4 vertebral body with that was presen t on the prior exam. The patient status post vertebroplasty at T12. It appears the patient is status post laminectomy at T10 and T11 levels. ALIGNMENT: Normal. CORD: Normal position and configuration. OTHER: There is increased signal on the T2-weighted images seen in the soft tissues around spinous processes T9-T12 extending over a 10.8 cm in length. There is edema/fluid seen in the subcutaneous fat at the T9-T10 levels. There does appear to be several punctate areas of low signal likely related to air. There is a filling defect within the gallbladder likely related to a gallstone seen on a single image , the axial T2 image /16. T1-T2: Normal. T2-T3: There is a minimal central disc protrusion without significant stenosis. T3-T4: There is a minimal central disc protrusion without significant stenosis. T4-T5: There is a mild central disc protrusion without significant stenosis. T5-T6: There is a mild central disc protrusion without significant stenosis. T6-T7: The thecal sac has a normal diameter. No evidence of disc bulge or protrusion. T7-T8: The thecal sac has a normal diameter. No evidence of disc bulge or protrusion. T8-T9: The thecal sac has a normal diameter. No evidence of disc bulge or protrusion. T9-T10: The thecal sac has a normal diameter. No evidence of disc bulge or protrusion. T10-T11: The thecal sac has a normal diameter. No evidence of disc bulge or protrusion. T11-T12: The thecal sac has a normal diameter. No evidence of disc bulge or protrusion. T12-L1: The thecal sac has a normal diameter. No evidence of disc bulge or protrusion. CONCLUSION: 1. Increased signal within the posterior paraspinous soft tissues extending from the T9-T12 levels wi th edema and fluid seen in the subcutaneous tissues of back over this region. This appears most promi nent at the T10 and T11 levels. This concerning for inflammatory change and possible infection. Recen t post surgical change could have a similar appearance. These changes have been present on prior exam s. 2. Status post vertebroplasty at T12. 3. Chronic stable compression deformity of the inferior aspect of T4. 4. Areas of mild disc protrusions at multiple levels as described above. An area of significant steno sis is not seen. Kiko Gary MD on April 06, 2017 at 2:37 Board Certified Radiologist. This report was verified electronically. Kiko Gary MD on April 06, 2017 at 3:24 Board Certified Radiologist. This report was verified electronically.
--- NOTE | 2017-04-06 03:12 | RADRPT ---
EXAM DATE/TIME: 04/06/2017 01:53 [facility] COMPARISON: MRI LUMBAR SPINE W/O CONTRAST, November 27, 2016, 12:28. INDICATIONS : Unable to lift legs s/p lumbar fusion 04/04/17. MEDICAL HISTORY : Congestive heart failure. Diabetes mellitus type 2. SURGICAL HISTORY : CABG Fusion, cervical. Fusion, lumbar. ENCOUNTER: Subsequent ACUITY: 4-6 days PAIN SCORE: 5/10 LOCATION: Paraspinal TECHNIQUE: Multiplanar multisequence MRI of the lumbar spine was performed without contrast. FINDINGS: The most caudal appearing lumbar vertebra is numbered as L5. VERTEBRAE: Transpedicular screws are seen at the L1-S1 levels. The patient is status post vertebroplasty at T12 and L2. There are mild compression deformities at these levels. CONUS: Individual nerve roots are not well seen throughout the lumbar spine. There is low signal seen on the T1-weighted images in thecal sac. There is intermediate signal seen on the T2-weighted images. On th e axial images, there appears to be focal low signal seen centrally in the thecal sac at the L2-L3 le vels. OTHER: There is abnormal signal within the posterior soft tissues in the lower thoracic spine and extending to the L4 level. This likely related to postoperative change. T12-L1: The thecal sac has a normal diameter. No evidence of disc bulge or protrusion. The neural foramina are patent bilaterally. L1-L2: The disc demonstrates decreased signal. A significant impression on the thecal sac is not seen. L2-L3: There is mild disc bulge. The patient appears be status post laminectomy at this level. L3-L4: The posterior disc margins intact. The nerve roots are not seen in the thecal sac. The neural foramin al are normal. L4-L5: Susceptibility artifact is seen in this region. The significant impress on the thecal sac is not deloris rly seen. The patient appears be status post laminectomy. The individual nerve roots cannot be seen. L5-S1: This level is obscured by susceptibility artifact. CONCLUSION: 1. Intermediate signal seen within the thecal sac at the L1-L2 through L4-5 levels. This may be secon danika to subacute hemorrhage within the thecal sac or arachnoiditis. The individual nerve roots are no t seen at these levels. 2. An area significant narrowing of the thecal sac is not clearly seen. 3. Postoperative change in the posterior paraspinous soft tissues Kiko Gray MD on April 06, 2017 at 2:53 Board Certified Radiologist. This report was verified electronically.
[2017-04-06 04:00] VITALS: BP 146/53; PULSE 82; RESP 20; TEMP 98.6; O2SAT 96
[2017-04-06] MEDS: 1/2 NS + KCL 20 MEQ INJ 1,000 ML IV SCH ×2 (04:00→14:00)
[2017-04-06 06:32] LABS: HEMATOCRIT 25.3 % (35.0-46.0); MEAN CELL VOLUME 85.5 FL (80.0-100.0); MEAN CORPUSCULAR HEMOGLOBIN 28.9 PG (27.0-34.0); MEAN CORPUSCULAR HGB CONC 33.7 % (32.0-36.0); PLATELET COUNT 224 TH/MM3 (150-450); RED BLOOD COUNT 2.96 MIL/MM3 (4.00-5.30); RED CELL DISTRIBUTION WIDTH 14.8 % (11.6-17.2); REVIEW FLAG FINAL; WHITE BLOOD COUNT 6.8 TH/MM3 (4.0-11.0)
[2017-04-06 08:00] VITALS: BP 129/55; PULSE 70; RESP 18; TEMP 99; O2SAT 95
[2017-04-06] MEDS: INDIVIDUALIZED INSULIN NOVOLOG SUPPLEMENTAL SCALE SQ SCH ×4 (08:00→21:00)
[2017-04-06] MEDS: NIFEdipine 90 MG SUSTAINED RELEASE TAB PO SCH (08:35)
[2017-04-06] MEDS: LEVOTHYROXINE SODIUM 50 MCG TAB PO SCH (08:35)
[2017-04-06] MEDS: CARVEDILOL 6.25 MG TAB PO SCH ×2 (08:36→21:00)
[2017-04-06] MEDS: metFORMIN HCL 500 MG TAB PO SCH ×2 (08:36→18:26)
[2017-04-06] MEDS: FOLIC ACID 1 MG TAB PO SCH (08:36)
[2017-04-06] MEDS: MAGNESIUM OXIDE 400 MG TAB PO SCH ×2 (08:36→21:00)
[2017-04-06] MEDS: GABAPENTIN 100 MG CAP PO SCH ×2 (08:36→13:00)
[2017-04-06] MEDS: DOCUSATE SODIUM 50 MG/SENNA 8.6 MG TAB PO SCH ×2 (08:36→21:00)
[2017-04-06] MEDS: TOLTERODINE TARTRATE 4 MG CAP LA PO SCH (08:36)
[2017-04-06] MEDS: FERROUS SULFATE 325 MG (65 MG ELEMENTAL IRON) TAB PO SCH ×2 (08:36→21:00)
[2017-04-06] MEDS: LISINOPRIL 20 MG TAB PO SCH (08:37)
[2017-04-06 12:00] VITALS: BP 117/59; PULSE 68; RESP 18; TEMP 99.6; O2SAT 92
--- NOTE | 2017-04-06 14:21 | PD.PSY.CON ---
Provisional Diagnosis Admission Date Apr 03, 2017 at 06:09 [place]. Psychological factors affecting medical condition History of Present Illness Service Psychiatry Consult Requested By Jessie Eddy Reason for Consult Depression Primary Care Physician Deana Retana M.D. HPI Patient is an 83-year-old [place] woman, , domicile alone, on social security benefits, with no past psychiatric history, no prior psychiatric hospitalizations, prior suicide attempts in his behavior, past medical history of diabetes, hypertension, hyperlipidemia, coronary artery disease status post coronary artery bypass graft and DVT upper extremity, recently admitted to the medical/surgical floor status post L3-5 fusion, for lumbar canal stenosis (L2-3 ) who has been noted to refuse for this patient therapy as well as refusing to eat and have expressed wanting to which consult was requested for evaluation. Patient was found sitting in hospital chair back brace B, cooperative today. Nursing staff reported the patient initially refused to eat and endorsed wishing to be but they've denied any suicidal ideations and has been compliant with treatment as well as eating. During interview patient stated that she is physically feeling "rotten" due to current pain from her surgery but emotionally states feeling "good". Patient states that she typically stressed. Hospital past 4 days and having undergone surgery but states that she has been sleeping well, good appetite, energy, concentration remembered being 6 out of 10 (10 being its worst) "because I'm here in the hospital". Patient states that she was on hospital her mood would be great. Patient denies at this time any thoughts of a wide to be alive or active thoughts of wanting to end her life. Patient states that she is not afraid to but not wishing for that either. Patient states that she has a very good friend whom she is benefits with the feel supported by for many years, Tiesha Ramirez, who has been visiting her every other day here in hospital. She states that when she is home she did touch with her best friend as well as engages in fishing which she has been doing for many years here when her was alive. Patient states that her 2 reasons to continue living out for her best friend is most continued to enjoy fishing. She states looking forward to recovery and returning back to her home. Patient at this time denies SI, HI AVH or delusions. Past Family Social History Coded Allergies: bacitracin (Unverified Allergy, Severe, Shortness of Breath, 04/03/17) gramicidin D (Unverified Allergy, Severe, Shortness of Breath, 04/03/17) morphine (Unverified Allergy, Severe, Shortness of Breath, 04/03/17) neomycin (Unverified Allergy, Severe, Shortness of Breath, 04/03/17) polymyxin B (Unverified Allergy, Severe, Shortness of Breath, 04/03/17) penicillin G (Unverified Allergy, Unknown, RASHES, 04/03/17) promethazine (Unverified Allergy, Unknown, UNKNOWN, 04/03/17) Active Scripts Oxycodone (Oxycodone) 5 Mg Tab, 5 MG PO Q8H Y for PAIN, #30 TAB 0 Refills Prov:Rojelio Reyes MD 01/07/17 Oxycodone-Acetaminophen (Oxycodone-Acetaminophen) 5-325 mg Tab, 1 TAB PO Q4H Y for Pain 4-10, #60 TAB Prov:aSv Eddy MD 01/06/17 Insulin Aspart Inj (Novolog Flexpen Inj) 300 Unit/3 Ml Pen, 1 UNIT SQ ACHS for Blood Sugar Management for 30 Days, PEN 0 Refills Sliding Scale: 150-200=2 units,201-250=4 units,251-300=6 units,301-350=8 units,351-400=10 units, 401+=10 units & call MD Prov:Jaleel Velazquez MD 12/30/16 Folic Acid (Folic Acid) 1 Mg Tablet, 1 MG PO DAILY, #30 Prov:Jaleel Velazquez MD 12/30/16 Sennosides-Docusate Sodium (Senna Plus 8.6-50 mg) 8.6 Mg-50 Mg Tab, 1 TAB PO BID , #60 TAB Prov:Jaleel Velazquez MD 12/30/16 Gabapentin (Gabapentin) 100 Mg Cap, 100 MG PO BID@0800,1300, #60 CAP Prov:Jaleel Velazquez MD 12/30/16 Gabapentin (Neurontin) 300 Mg Cap, 300 MG PO HS, #30 CAP Prov:Jaleel Velazquez MD 12/30/16 Lisinopril (Lisinopril) 20 Mg Tab, 20 MG PO DAILY, #30 TAB Prov:Jaleel Velazquez MD 12/30/16 Carvedilol (Coreg) 6.25 Mg Tab, 6.25 MG PO Q12HR, #60 TAB Prov:Jaleel Velazquez MD 12/30/16 Rivaroxaban (Xarelto) 10 Mg Tab, 10 MG PO DAILY for Blood Clot Prevention, #30 TAB 0 Refills Start on 11/27/16 Prov:Jaleel Velazquez MD 12/30/16 Multiple Vitamins W/ Minerals (Thera-M) 1 Tab, 1 TAB PO HS for Nutritional Supplement, #30 TAB 0 Refills Prov:Jaleel Velazquez MD 12/30/16 Magnesium Oxide (Magox 400) 400 Mg Tablet, 400 MG PO BID, #60 Prov:Jaleel Velazquez MD 12/30/16 Ferrous Sulfate (Ferrousul) 325 Mg Tab, 325 MG PO BID, #60 Prov:Jaleel Velazquez MD 12/30/16 Nifedipine (Nifedipine ER) 90 Mg Tab, 90 MG PO DAILY for Blood Pressure Management, #30 TAB Prov:Jaleel Velazquez MD 12/30/16 Ezetimibe (Zetia) 10 Mg Tab, 10 MG PO HS, #30 TAB 0 Refills Prov:Jaleel Velazquez MD 12/30/16 Levothyroxine (Levothyroxine) 50 Mcg Tab, 50 MCG PO DAILY for Thyroid, #30 TAB 0 Refills Prov:Jaleel Velazquez MD 12/30/16 Tolterodine ER (Detrol LA) 4 Mg Cap, 4 MG PO DAILY for Urinary Symptom Managemen , #30 CAP 0 Refills Prov:Jaleel Velazquez MD 12/30/16 Rosuvastatin (Crestor) 10 Mg Tab, 10 MG PO HS for Cholesterol Management, #30 TAB 0 Refills Prov:Jaleel Velazquez MD 12/30/16 Reported Medications Metformin (Metformin) 500 Mg Tab, 500 MG PO BIDPC for Blood Sugar Management, # 60 TAB 0 Refills 03/28/17 Ascorbic Acid ER (Vitamin C Sr) 500 Mg Caper, 500 MG PO DAILY for Nutritional Supplement, CAP 0 Refills 01/04/17 Magnesium Hydroxide Liq (Milk of Magnesia Liq) 400 Mg/5 Ml Susp, 60 ML PO DAILY Y for INDIGESTION OR UPSET STOMACH, #1 BOTTLE 0 Refills 01/04/17 Sodium Phosphates Rectal (Fleet Pediatric Rectal) 3.5-9.5 Gm/66 Ml Enem, 66 ML RECTAL DAILY Y for CONSTIPATION, BOTTLE 0 Refills 01/04/17 Bisacodyl Supp (Bisacodyl Supp) 10 Mg Supp, 10 MG RECTAL DAILY Y for CONSTIPATION, SUPP 0 Refills 01/04/17 Magnesium Citrate Liq (Magnesium Citrate Liq) 300 Ml Liq, 300 ML PO DIRECTED , BOTTLE 0 Refills 01/04/17 Acetaminophen (Tylenol) 325 Mg Tab, 650 MG PO Q6H Y for PAIN 1-10 AND/OR FEVER > 101F, TAB 0 Refills 11/18/16 Alendronate (Alendronate) 35 Mg Tab, 35 MG PO Q7D for Osteoporosis Prophylaxis, #4 TAB 0 Refills 08/02/16 Current Medications Medications (Trade) Dose Ordered Sig/Jin Route Start Time Stop Time Status Last Admin (Tylenol) 650 mg Q6H PRN PO 04/03/17 15:30 (Dulcolax Supp) 10 mg DAILY PRN RECTAL 04/03/17 15:30 (Coreg) 6.25 mg Q12HR PO 04/03/17 21:00 04/06/17 08:36 (Zetia) 10 mg HS PO 04/03/17 21:00 04/05/17 21:21 (Ferrous Sulfate) 325 mg BID PO 04/03/17 21:00 04/06/17 08:36 (Folate) 1 mg DAILY PO 04/04/17 09:00 04/06/17 08:36 (Neurontin) 100 mg BID@0800,1300 PO 04/04/17 08:00 04/06/17 08:36 (Neurontin) 300 mg HS PO 04/03/17 21:00 04/05/17 21:21 (Synthroid) 50 mcg DAILY PO 04/04/17 09:00 04/06/17 08:35 (Prinivil) 20 mg DAILY PO 04/04/17 09:00 04/06/17 08:37 (Milk Of Magnesia Liq) 60 ml DAILY PRN PO 04/03/17 15:30 04/04/17 21:19 (Mag-Ox) 400 mg BID PO 04/03/17 21:00 04/06/17 08:36 (Glucophage) 500 mg BIDPC PO 04/03/17 18:00 04/06/17 08:36 (Theragran M Tab) 1 tab HS PO 04/03/17 21:00 04/05/17 21:20 (Procardia Xl) 90 mg DAILY PO 04/04/17 09:00 04/06/17 08:35 (Kandi-Colace) 1 tab BID PO 04/03/17 21:00 04/06/17 08:36 (Fleets Enema (Pediatric)) 66 ml DAILY PRN RECTAL 04/03/17 15:30 (Detrol La) 4 mg DAILY PO 04/04/17 09:00 04/06/17 08:36 Potassium Chloride/Sodium Chloride 1,000 ml @ 100 mls/hr Q10H IV 04/03/17 16:00 04/05/17 13:50 (Percocet 5-325 Mg) 1 tab Q6H PRN PO 04/03/17 15:30 (Percocet 10-325 Mg) 1 tab Q6H PRN PO 04/03/17 15:30 04/05/17 17:27 (Narcan Inj) 0.4 mg UNSCH PRN IV PUSH 04/03/17 15:30 (Duragesic 25 Mcg Patch.72 Hr) 1 patch Q3D T-DERMAL 04/03/17 16:00 04/04/17 21:22 Miscellaneous Information 1 Q3D T-DERMAL 04/03/17 16:00 (D50w (Vial) Inj) 50 ml UNSCH PRN IV PUSH 04/03/17 23:00 (Glucagon Inj) 1 mg UNSCH PRN OTHER 04/03/17 23:00 (NovoLOG SUPPLEMENTAL SCALE) 1 ACHS SLIDING SCALE SQ 04/04/17 08:00 04/06/17 08:00 (Vasotec Inj) 1.25 mg Q8H PRN IV PUSH 04/03/17 23:45 04/04/17 00:33 Physical Exam Vital Signs Vital Signs Date Time Temp Pulse Resp B/P (MAP) Pulse Ox O2 Delivery O2 Flow Rate FiO2 04/06/17 08:00 99.0 70 18 129/55 (79) 95 04/05/17 17:55 21 12/18/17 22:26 Nasal Cannula 2.00 I/O 04/06/17 04/06/17 04/07/17 08:00 16:00 00:00 Intake Total 240 ml Balance 240 ml Lab Results Test 04/06/17 05:41 White Blood Count 6.8 TH/MM3 Red Blood Count 2.96 MIL/MM3 Hemoglobin 8.5 GM/DL Hematocrit 25.3 % Mean Corpuscular Volume 85.5 FL Mean Corpuscular Hemoglobin 28.9 PG Mean Corpuscular Hemoglobin Concent 33.7 % Red Cell Distribution Width 14.8 % Platelet Count 224 TH/MM3 Mean Platelet Volume 8.8 FL Mental Status Examination Appearance: Appropriate Consciousness: Alert Orientation: Person, Place, Date/Time Speech: Unremarkable Language: Adequate Fund of Knowledge: Adequate Attention and Concentration: Adequate Memory: Unremarkable Mood: Appropriate, Good Affect: Appropriate, Other (smiling and laughing at times) Thought Process & Associations: Intact, Goal directed, Linear Thought Content: Appropriate Hallucination Type: None Delusion Type: None Suicidal Ideation: No Suicidal Plan: No Suicidal Intention: No Homicidal Ideation: No Homicidal Plan: No Homicidal Intention: No Insight: Fair Judgment: Impulsive Assessment & Plan Problem List: (1) Psychological factors affecting medical condition ICD Codes: F54 - Psychological and behavioral factors associated with disorders or diseases classified elsewhere Assessment & Plan Patient is a 82-year-old [place] woman with no past sick psychiatric history currently admitted to the medical/surgical floor for recent L3 to 5 fusion due to lumbar canal stenosis was recently noticed to have stated wanting to as well as having refused to eat, one occasion which psychiatry was consulted for evaluation. Patient today as compliant with treatment has been noted to be eating well and not endorsing any suicidal ideations nor express wishing to be . Patient denies any other depressive symptoms but reports feeling down due to currently being hospitalized, having to enter recovery from surgery, in the context of having limited social support as well as continued bereavement of her loss of 2 years ago. Patient at this time does not require any acute psychiatric intervention but would benefit from outpatient follow-up that would include individual psychotherapy and supportive therapy but does not necessitate starting any antidepressants at this time. Patient to continue recommendations and management as per primary medical/surgical team. Brief supportive psychotherapy provided. Consult appreciated. Abram Kelsey MD Apr 06, 2017 14:21
[2017-04-06 16:00] VITALS: BP 98/56; PULSE 68; RESP 18; TEMP 99; O2SAT 92
[2017-04-06] MEDS: REMOVE OLD PATCH T-DERMAL SCH (16:00)
[2017-04-06] MEDS: fentaNYL 25 MCG/HR PATCH T-DERMAL SCH (18:25)
[2017-04-06 20:00] VITALS: BP 101/54; PULSE 69; RESP 16; TEMP 98.4; O2SAT 94
[2017-04-06] MEDS: MULTIVITAMINS/MINERALS THERAPEUTIC TAB PO SCH (21:00)
[2017-04-06] MEDS: EZETIMIBE 10 MG TAB PO SCH (21:00)
[2017-04-06] MEDS: GABAPENTIN 300 MG CAP PO SCH (21:00)
[2017-04-07] VITALS: BP 108/49; PULSE 70; RESP 18; TEMP 99.2; O2SAT 94
[2017-04-07] MEDS: oxyCODONE/ACETAMINOPHEN 5 MG/325 MG TAB PO PRN ×3 (03:54→17:43)
[2017-04-07 04:00] VITALS: BP 143/54; PULSE 73; RESP 16; TEMP 98.6; O2SAT 94
[2017-04-07 08:00] VITALS: BP 120/60; PULSE 66; RESP 18; TEMP 97.2; O2SAT 96
[2017-04-07] MEDS: INDIVIDUALIZED INSULIN NOVOLOG SUPPLEMENTAL SCALE SQ SCH ×4 (08:00→21:00)
[2017-04-07] MEDS: MAGNESIUM OXIDE 400 MG TAB PO SCH ×2 (09:19→19:52)
[2017-04-07] MEDS: CARVEDILOL 6.25 MG TAB PO SCH ×2 (09:19→21:14)
[2017-04-07] MEDS: TOLTERODINE TARTRATE 4 MG CAP LA PO SCH (09:19)
[2017-04-07] MEDS: DOCUSATE SODIUM 50 MG/SENNA 8.6 MG TAB PO SCH ×2 (09:19→19:52)
[2017-04-07] MEDS: metFORMIN HCL 500 MG TAB PO SCH ×2 (09:20→17:52)
[2017-04-07] MEDS: LISINOPRIL 20 MG TAB PO SCH (09:20)
[2017-04-07] MEDS: LEVOTHYROXINE SODIUM 50 MCG TAB PO SCH (09:20)
[2017-04-07] MEDS: FOLIC ACID 1 MG TAB PO SCH (09:20)
[2017-04-07] MEDS: FERROUS SULFATE 325 MG (65 MG ELEMENTAL IRON) TAB PO SCH ×2 (09:20→19:52)
[2017-04-07] MEDS: GABAPENTIN 100 MG CAP PO SCH ×2 (09:22→12:20)
[2017-04-07] MEDS: NIFEdipine 90 MG SUSTAINED RELEASE TAB PO SCH (09:25)
[2017-04-07] MEDS: 1/2 NS + KCL 20 MEQ INJ 1,000 ML IV SCH ×3 (10:00→19:52)
[2017-04-07 12:00] VITALS: BP 104/56; PULSE 66; RESP 18; TEMP 97.9; O2SAT 97
[2017-04-07] MEDS ORDERED: FUROSEMIDE 20 MG/2 ML VIAL IV PUSH ONE (12:00)
[2017-04-07 16:00] VITALS: BP 107/51; PULSE 65; RESP 18; TEMP 97.8; O2SAT 96
--- NOTE | 2017-04-07 16:54 | HHI.NSPN ---
(Jeff Talbert) History Chief Complaint: Back hurts. (Jeff Talbert) Interval History 04/03: The patient presented to [facility] to undergo a bilateral L2-3 laminectomy with a bilateral L1 to L4 posterolateral fusion and screw fixation. Post-operatively the patient was admitted to a regular med/surg floor. 04/04: This morning when seen the patient is laying in bed with her friend visiting. She says she is not doing good and complains of back pain and some neck pain. When asked if she has a back brace at home she says she doesn't know where it is. 04/05: When seen this morning the patient is awake in bed. She states that she has numbness to all the extremities that continues to be same as yesterday. She states that it is worse than before she came into the hospital. She also continues to have back pain. She states she doesn't feel like eating. 04/07: The patient is awake in bed watching TV this afternoon. She states that she hurts to the back. There is no change in her numbness. This morning Nursing called and reported the following: That the patient had urinary retention during the night and when a Rojas was placed 600 mL of urine was obtained; The patient had not had a bowel movement since admission, a review of the medications in the EMR showed the patient had a paediatric Fleets order PRN for constipation and this was brought to the Nurse's attention; The dependent edema persisted, therefore furosemide 10 mg IV was ordered and given. The Fleets was not given due to the patient being in the cardiac chair at the time per Nursing. The patient was evaluated yesterday by Psychiatry due to a depressed affect. (Jeff Talbert) Exam Results 04/05/17 04/05/17 04/06/17 04/06/17 04/07/17 04/07/17 06:00 18:00 06:00 18:00 06:00 18:00 Intake Total 240 ml 240 ml 240 ml 480 ml 480 ml Output Total 340 ml 265 ml 715 ml Balance -100 ml -25 ml 240 ml 480 ml -235 ml Intake Oral 240 ml 240 ml 240 ml 480 ml 480 ml Output Urine Total 250 ml 225 ml 625 ml Drainage Total 90 ml 40 ml 90 ml Bladder Scan Volume Amount 595 ml # Voids 2 1 # Bowel Movements 0 0 0 Vital Signs Date Time Temp Pulse Resp B/P (MAP) Pulse Ox O2 Delivery O2 Flow Rate FiO2 04/07/17 12:00 97.9 66 18 104/56 (72) 97 04/07/17 10:37 Room Air 04/07/17 08:00 97.2 66 18 120/60 (80) 96 04/07/17 04:00 98.6 73 16 143/54 (83) 94 04/07/17 00:00 99.2 70 18 108/49 (68) 94 04/06/17 20:00 98.4 69 16 101/54 (70) 94 04/06/17 19:23 Room Air 04/06/17 16:00 99.0 68 18 98/56 (70) 92 04/06/17 12:00 99.6 68 18 117/59 (78) 92 04/06/17 08:00 99.0 70 18 129/55 (79) 95 04/06/17 04:00 98.6 82 20 146/53 (84) 96 04/06/17 00:00 99.0 83 20 122/71 (88) 97 04/05/17 20:00 99.0 74 22 129/70 (89) 94 04/05/17 17:55 95 21 04/05/17 16:00 98.3 71 17 106/36 (59) 95 04/05/17 12:00 97.5 69 17 107/41 (63) 96 04/05/17 08:00 98.4 63 17 108/36 (60) 95 04/05/17 07:35 95 21 04/05/17 04:00 98.2 66 20 108/55 (72) 98 04/05/17 00:00 97.8 70 20 122/54 (76) 98 04/04/17 20:00 98.3 89 22 108/41 (63) 97 (Jeff Talbert) Physical Examination GENERAL: Awake & alert, readily interacts, affect normal, no apparent distress. MUSCULOSKELETAL: CUMMINS to varying degree, no deformity or clubbing noted. TTP from mid thoracolumbar spine down. RUSTY drain to bulb suction w/serosanguinous drainage. Dependent edema. NEUROLOGICAL: AAOx3. Speech clear & appropriate. Follows simple commands w/o difficulty. Sensation continues to be diminished to light touch to all extremities. Motor strength 4 to 4+/5 to RUE; 3+ to 4/5 LUE. Motor strength to the BLE: iliopsoas 3+/5, quadriceps 1/5, hamstrings 2+/5, anterior tibialis 3 to 3+/5, gastrocnemius 3+/5 & extensor hallucis longus 3/5. (Jeff Talbert) Lab, Micro, Other Results Recent Impressions Thoracic Spine MRI 04/06/17 0055 Signed Impressions: Service Date/Time: March 01:53 - CONCLUSION: 1. Increased signal within the posterior paraspinous soft tissues extending from the T9-T12 levels with edema and fluid seen in the subcutaneous tissues of back over this region. This appears most prominent at the T10 and T11 levels. This concerning for inflammatory change and possible infection. Recent post surgical change could have a similar appearance. These changes have been present on prior exams. 2. Status post vertebroplasty at T12. 3. Chronic stable compression deformity of the inferior aspect of T4. 4. Areas of mild disc protrusions at multiple levels as described above. An area of significant stenosis is not seen. Kiko Gary MD Lumbar Spine MRI 04/06/17 0000 Signed Impressions: Service Date/Time: March 01:53 - CONCLUSION: 1. Intermediate signal seen within the thecal sac at the L1-L2 through L4-5 levels. This may be secondary to subacute hemorrhage within the thecal sac or arachnoiditis. The individual nerve roots are not seen at these levels. 2. An area significant narrowing of the thecal sac is not clearly seen. 3. Postoperative change in the posterior paraspinous soft tissues Kiko Gary MD Laboratory Tests Test 04/05/17 06:30 04/06/17 05:41 White Blood Count 8.3 TH/MM3 6.8 TH/MM3 Red Blood Count 3.32 MIL/MM3 2.96 MIL/MM3 Hemoglobin 9.4 GM/DL 8.5 GM/DL Hematocrit 28.3 % 25.3 % Mean Corpuscular Volume 85.1 FL 85.5 FL Mean Corpuscular Hemoglobin 28.4 PG 28.9 PG Mean Corpuscular Hemoglobin Concent 33.3 % 33.7 % Red Cell Distribution Width 15.0 % 14.8 % Platelet Count 232 TH/MM3 224 TH/MM3 Mean Platelet Volume 8.7 FL 8.8 FL (Jeff Talbert) Medical Decision Making Impression and Plan Impression: Preoperative Diagnosis: (1) Lumbar canal stenosis 1. Severe L2-3 stenosis 2. Chronic myelopathy 3. Status post previous L3-5 fusion The patient is doing good, pain seems reasonable controlled, stable neurologically. RUSTY output 90 mL as of this morning for the past 24 hrs. POD #4 () s/p: 1. Bilateral L2-3 decompressive semi-laminectomy, medial facetectomy 2. Bilateral L1-L4 posterolateral fusion with autograft bone, cortical cancellus bone chips, BMP and stem cell matrix. 3. Bilateral L1-4 posterior lateral fusion with pedicle screw fixation, revision existing L3-4 instrumentation Postoperative Diagnosis: (1) Lumbar canal stenosis 1. Severe L2-3 stenosis 2. Chronic myelopathy 3. Status post previous L3-5 fusion Plan: Neuro checks. Full liquid diet and advance as tolerated. TLSO brace when OOB. Mobilise patient w/assistance. PT/OT eval & tx. Monitor RUSTY drain output. BMP & CBC in AM. Will give another dose of furosemide 10 mg IV in AM. Appreciate Psychiatry's input. Keep patient off her back. (Jeff Talbert) Attending Statement The exam, history, and the medical decision-making described in the above note were completed with the assistance of the mid-level provider. I reviewed and agree with the findings presented. I attest that I had a [id number] encounter with the patient on the same day, and personally performed and documented my assessment and findings in the medical record. Mild to moderate serosanguineous drainage output. No sign of CSF leak Dressing dry and intact Positive constipation. Lower extremity motor function remains mostly 2/5-stable versus preoperative. She continues to have dysesthetic pain in her feet which she has had after previous surgical procedures. Rojas catheter has been replaced in urinary retention Findings were discussed at length with the patient Continue therapy Mobilize out of bed as tolerated Discontinue drain Continue present pain medications None chemical DVT prophylaxis at present due to probable lumbar epidural hematoma noted on postoperative MRI. (Sav Eddy MD) Jeff Talbert Apr 07, 2017 16:54 Sav Eddy MD Apr 07, 2017 19:18
[2017-04-07] MEDS: SOD PHOSPHATE/SOD BIPHOSPHATE (PED) ENEMA 66ML RECTAL PRN (17:50)
[2017-04-07] MEDS: MAGNESIUM HYDROXIDE SUSP 30 ML CUP PO PRN (19:52)
[2017-04-07] MEDS: GABAPENTIN 300 MG CAP PO SCH (19:52)
[2017-04-07] MEDS: MULTIVITAMINS/MINERALS THERAPEUTIC TAB PO SCH (19:52)
[2017-04-07] MEDS: EZETIMIBE 10 MG TAB PO SCH (19:52)
[2017-04-07 20:00] VITALS: BP 117/47; PULSE 70; RESP 18; TEMP 99; O2SAT 96
[2017-04-08] VITALS (7 sets, daily range): BP systolic 95–135; BP diastolic 39–60; PULSE 65–77; RESP 17–18; TEMP 97.3–99.8; O2SAT 94–97
[2017-04-08 05:19] LABS: HEMATOCRIT 25.6 % (35.0-46.0); MEAN CELL VOLUME 84.4 FL (80.0-100.0); MEAN CORPUSCULAR HEMOGLOBIN 28.7 PG (27.0-34.0); PLATELET COUNT 258 TH/MM3 (150-450); RED BLOOD COUNT 3.03 MIL/MM3 (4.00-5.30); RED CELL DISTRIBUTION WIDTH 14.9 % (11.6-17.2); REVIEW FLAG FINAL
[2017-04-08 05:33] LABS: BICARBONATE 28.6 MEQ/L (21.0-32.0)
[2017-04-08] MEDS: 1/2 NS + KCL 20 MEQ INJ 1,000 ML IV SCH ×2 (06:00→10:25)
[2017-04-08] MEDS: INDIVIDUALIZED INSULIN NOVOLOG SUPPLEMENTAL SCALE SQ SCH ×4 (08:00→21:00)
[2017-04-08] MEDS: GABAPENTIN 100 MG CAP PO SCH ×2 (08:00→11:46)
[2017-04-08] MEDS: LISINOPRIL 20 MG TAB PO SCH (08:19)
[2017-04-08] MEDS: MAGNESIUM HYDROXIDE SUSP 30 ML CUP PO PRN (08:19)
[2017-04-08] MEDS: MAGNESIUM OXIDE 400 MG TAB PO SCH ×2 (08:19→22:37)
[2017-04-08] MEDS: TOLTERODINE TARTRATE 4 MG CAP LA PO SCH (08:19)
[2017-04-08] MEDS: CARVEDILOL 6.25 MG TAB PO SCH ×2 (08:19→22:38)
[2017-04-08] MEDS: DOCUSATE SODIUM 50 MG/SENNA 8.6 MG TAB PO SCH ×2 (08:19→22:37)
[2017-04-08] MEDS: LEVOTHYROXINE SODIUM 50 MCG TAB PO SCH (08:19)
[2017-04-08] MEDS: FOLIC ACID 1 MG TAB PO SCH (08:19)
[2017-04-08] MEDS: FERROUS SULFATE 325 MG (65 MG ELEMENTAL IRON) TAB PO SCH ×2 (08:19→22:37)
[2017-04-08] MEDS: NIFEdipine 90 MG SUSTAINED RELEASE TAB PO SCH (08:19)
[2017-04-08] MEDS: metFORMIN HCL 500 MG TAB PO SCH ×2 (08:20→15:21)
[2017-04-08] MEDS ORDERED: FUROSEMIDE 20 MG/2 ML VIAL IV PUSH ONE (09:00)
--- NOTE | 2017-04-08 10:49 | HHI.NSPN ---
History Chief Complaint: Incisional pain. Interval History 04/03: The patient presented to [facility] to undergo a bilateral L2-3 laminectomy with a bilateral L1 to L4 posterolateral fusion and screw fixation. Post-operatively the patient was admitted to a regular med/surg floor. 04/04: This morning when seen the patient is laying in bed with her friend visiting. She says she is not doing good and complains of back pain and some neck pain. When asked if she has a back brace at home she says she doesn't know where it is. 04/05: When seen this morning the patient is awake in bed. She states that she has numbness to all the extremities that continues to be same as yesterday. She states that it is worse than before she came into the hospital. She also continues to have back pain. She states she doesn't feel like eating. 04/07: The patient is awake in bed watching TV this afternoon. She states that she hurts to the back. There is no change in her numbness. This morning Nursing called and reported the following: That the patient had urinary retention during the night and when a Rojas was placed 600 mL of urine was obtained; The patient had not had a bowel movement since admission, a review of the medications in the EMR showed the patient had a paediatric Fleets order PRN for constipation and this was brought to the Nurse's attention; The dependent edema persisted, therefore furosemide 10 mg IV was ordered and given. The Fleets was not given due to the patient being in the cardiac chair at the time per Nursing. The patient was evaluated yesterday by Psychiatry due to a depressed affect. 04/08: Pt awake and alert. Complains of incisional pain. No radiculopathy into chest or abdomen. She complains of pain radiating into the posterior LEs and into the plantar aspect of the feet bilaterally. Review of Systems General: Negative for: fever, chills, insomnia Respiratory: Negative for: shortness of breath, cough, sputum Cardiovascular: Negative for: chest pain Gastrointestinal: Negative for: nausea, vomitting, diarrhea, constipation Exam Results Vital Signs Date Time Temp Pulse Resp B/P (MAP) Pulse Ox O2 Delivery O2 Flow Rate FiO2 04/08/17 08:25 Room Air 04/08/17 08:00 97.3 74 17 121/55 (77) 97 04/05/17 17:55 21 Intake and Output 04/08/17 04/08/17 04/08/17 07:59 15:59 23:59 Output Total 560 ml Balance -560 ml Physical Examination GENERAL: Awake & alert, readily interacts, affect normal, no apparent distress. RESP: CTA bilaterally HEART: NSR no murmurs. ABD: Soft positive bs. MUSCULOSKELETAL: Generalized weakness in LEs 3/5. NEUROLOGICAL: AAOx3. Speech clear & appropriate. Follows simple commands w/o difficulty. Sensation continues to be diminished to light touch to all extremities. Lab, Micro, Other Results Last Impressions Thoracic Spine MRI 04/06/17 0055 Signed Impressions: Service Date/Time: March 01:53 - CONCLUSION: 1. Increased signal within the posterior paraspinous soft tissues extending from the T9-T12 levels with edema and fluid seen in the subcutaneous tissues of back over this region. This appears most prominent at the T10 and T11 levels. This concerning for inflammatory change and possible infection. Recent post surgical change could have a similar appearance. These changes have been present on prior exams. 2. Status post vertebroplasty at T12. 3. Chronic stable compression deformity of the inferior aspect of T4. 4. Areas of mild disc protrusions at multiple levels as described above. An area of significant stenosis is not seen. Kiko Gary MD Lumbar Spine MRI 04/06/17 0000 Signed Impressions: Service Date/Time: March 01:53 - CONCLUSION: 1. Intermediate signal seen within the thecal sac at the L1-L2 through L4-5 levels. This may be secondary to subacute hemorrhage within the thecal sac or arachnoiditis. The individual nerve roots are not seen at these levels. 2. An area significant narrowing of the thecal sac is not clearly seen. 3. Postoperative change in the posterior paraspinous soft tissues Kiko Gary MD Lumbar Spine X-Ray 04/03/17 0000 Signed Impressions: Service Date/Time: Monday, April 03, 2017 09:39 - CONCLUSION: Anatomic alignment Asad Rajan MD FACR Laboratory Tests Test 04/08/17 04:06 White Blood Count 5.0 TH/MM3 Red Blood Count 3.03 MIL/MM3 Hemoglobin 8.7 GM/DL Hematocrit 25.6 % Mean Corpuscular Volume 84.4 FL Mean Corpuscular Hemoglobin 28.7 PG Mean Corpuscular Hemoglobin Concent 34.0 % Red Cell Distribution Width 14.9 % Platelet Count 258 TH/MM3 Mean Platelet Volume 8.7 FL Blood Urea Nitrogen 12 MG/DL Creatinine 0.66 MG/DL Random Glucose 137 MG/DL Calcium Level 8.4 MG/DL Sodium Level 140 MEQ/L Potassium Level 4.0 MEQ/L Chloride Level 104 MEQ/L Carbon Dioxide Level 28.6 MEQ/L Anion Gap 7 MEQ/L Estimat Glomerular Filtration Rate 86 ML/MIN Medical Decision Making Impression and Plan Impression: Preoperative Diagnosis: (1) Lumbar canal stenosis 1. Severe L2-3 stenosis 2. Chronic myelopathy 3. Status post previous L3-5 fusion () s/p: 1. Bilateral L2-3 decompressive semi-laminectomy, medial facetectomy 2. Bilateral L1-L4 posterolateral fusion with autograft bone, cortical cancellus bone chips, BMP and stem cell matrix. 3. Bilateral L1-4 posterior lateral fusion with pedicle screw fixation, revision existing L3-4 instrumentation Plan: Neuro checks. TLSO brace when OOB. Mobilise patient w/assistance. Continue with PT/OT D/C RUSTY drain. Abram Smith Apr 08, 2017 10:49 am
[2017-04-08] MEDS: oxyCODONE/ACETAMINOPHEN 10 MG/325 MG TAB PO PRN (13:47)
[2017-04-08] MEDS: SOD PHOSPHATE/SOD BIPHOSPHATE (PED) ENEMA 66ML RECTAL PRN (15:19)
[2017-04-08] MEDS: GABAPENTIN 300 MG CAP PO SCH (22:37)
[2017-04-08] MEDS: EZETIMIBE 10 MG TAB PO SCH (22:38)
[2017-04-08] MEDS: oxyCODONE/ACETAMINOPHEN 5 MG/325 MG TAB PO PRN (22:38)
[2017-04-08] MEDS: MULTIVITAMINS/MINERALS THERAPEUTIC TAB PO SCH (22:38)
[2017-04-09 00:07] VITALS: BP 116/85; PULSE 71; RESP 17; TEMP 98.6; O2SAT 96
[2017-04-09] MEDS: 1/2 NS + KCL 20 MEQ INJ 1,000 ML IV SCH ×3 (02:00→19:43)
[2017-04-09 07:12] VITALS: BP 112/48; PULSE 62; RESP 17; TEMP 97.6; O2SAT 97
[2017-04-09] MEDS: NIFEdipine 90 MG SUSTAINED RELEASE TAB PO SCH (07:17)
[2017-04-09] MEDS: FERROUS SULFATE 325 MG (65 MG ELEMENTAL IRON) TAB PO SCH ×2 (07:17→21:01)
[2017-04-09] MEDS: GABAPENTIN 100 MG CAP PO SCH ×2 (07:17→12:16)
[2017-04-09] MEDS: LEVOTHYROXINE SODIUM 50 MCG TAB PO SCH (07:17)
[2017-04-09] MEDS: MAGNESIUM OXIDE 400 MG TAB PO SCH ×2 (07:17→21:01)
[2017-04-09] MEDS: TOLTERODINE TARTRATE 4 MG CAP LA PO SCH (07:17)
[2017-04-09] MEDS: FOLIC ACID 1 MG TAB PO SCH (07:18)
[2017-04-09] MEDS: DOCUSATE SODIUM 50 MG/SENNA 8.6 MG TAB PO SCH ×2 (07:18→21:02)
[2017-04-09] MEDS: CARVEDILOL 6.25 MG TAB PO SCH ×2 (07:18→21:01)
[2017-04-09] MEDS: MAGNESIUM HYDROXIDE SUSP 30 ML CUP PO PRN (07:18)
[2017-04-09] MEDS: oxyCODONE/ACETAMINOPHEN 10 MG/325 MG TAB PO PRN ×2 (07:18→16:32)
[2017-04-09] MEDS: metFORMIN HCL 500 MG TAB PO SCH ×2 (07:18→16:33)
[2017-04-09] MEDS: INDIVIDUALIZED INSULIN NOVOLOG SUPPLEMENTAL SCALE SQ SCH ×4 (07:18→21:02)
[2017-04-09] MEDS: LISINOPRIL 20 MG TAB PO SCH (07:19)
--- NOTE | 2017-04-09 09:48 | HHI.NSPN ---
History Chief Complaint: Incisional pain. Interval History 04/03: The patient presented to [facility] to undergo a bilateral L2-3 laminectomy with a bilateral L1 to L4 posterolateral fusion and screw fixation. Post-operatively the patient was admitted to a regular med/surg floor. 04/04: This morning when seen the patient is laying in bed with her friend visiting. She says she is not doing good and complains of back pain and some neck pain. When asked if she has a back brace at home she says she doesn't know where it is. 04/05: When seen this morning the patient is awake in bed. She states that she has numbness to all the extremities that continues to be same as yesterday. She states that it is worse than before she came into the hospital. She also continues to have back pain. She states she doesn't feel like eating. 04/07: The patient is awake in bed watching TV this afternoon. She states that she hurts to the back. There is no change in her numbness. This morning Nursing called and reported the following: That the patient had urinary retention during the night and when a Rojas was placed 600 mL of urine was obtained; The patient had not had a bowel movement since admission, a review of the medications in the EMR showed the patient had a paediatric Fleets order PRN for constipation and this was brought to the Nurse's attention; The dependent edema persisted, therefore furosemide 10 mg IV was ordered and given. The Fleets was not given due to the patient being in the cardiac chair at the time per Nursing. The patient was evaluated yesterday by Psychiatry due to a depressed affect. 04/08: Pt awake and alert. Complains of incisional pain. No radiculopathy into chest or abdomen. She complains of pain radiating into the posterior LEs and into the plantar aspect of the feet bilaterally. 04/09: Pt awake and alert. States pain controlled. No radiculopathy into chest or LEs today. She hasn't been out of bed yet this morning. She states she is "groggy". Pt states she had bm yesterday. Review of Systems General: Negative for: fever, chills, insomnia Respiratory: Negative for: shortness of breath, cough, sputum Cardiovascular: Negative for: chest pain Gastrointestinal: Negative for: nausea, vomitting, diarrhea, constipation Exam Results Vital Signs Date Time Temp Pulse Resp B/P (MAP) Pulse Ox O2 Delivery O2 Flow Rate FiO2 04/09/17 07:12 97.6 62 17 112/48 (69) 97 04/08/17 08:25 Room Air 04/05/17 17:55 21 Intake and Output 04/09/17 04/09/17 04/10/17 08:00 16:00 00:00 Intake Total 120 ml Output Total 250 ml Balance -130 ml Physical Examination GENERAL: Awake & alert, readily interacts, affect normal, no apparent distress. RESP: CTA bilaterally HEART: NSR no murmurs. ABD: Soft positive bs. MUSCULOSKELETAL: Generalized weakness in LEs 3/5. NEUROLOGICAL: AAOx3. Speech clear & appropriate. Follows simple commands w/o difficulty. Lab, Micro, Other Results Last Impressions Thoracic Spine MRI 04/06/17 0055 Signed Impressions: Service Date/Time: March 01:53 - CONCLUSION: 1. Increased signal within the posterior paraspinous soft tissues extending from the T9-T12 levels with edema and fluid seen in the subcutaneous tissues of back over this region. This appears most prominent at the T10 and T11 levels. This concerning for inflammatory change and possible infection. Recent post surgical change could have a similar appearance. These changes have been present on prior exams. 2. Status post vertebroplasty at T12. 3. Chronic stable compression deformity of the inferior aspect of T4. 4. Areas of mild disc protrusions at multiple levels as described above. An area of significant stenosis is not seen. Kiko Gary MD Lumbar Spine MRI 04/06/17 0000 Signed Impressions: Service Date/Time: March 01:53 - CONCLUSION: 1. Intermediate signal seen within the thecal sac at the L1-L2 through L4-5 levels. This may be secondary to subacute hemorrhage within the thecal sac or arachnoiditis. The individual nerve roots are not seen at these levels. 2. An area significant narrowing of the thecal sac is not clearly seen. 3. Postoperative change in the posterior paraspinous soft tissues Kiko Gary MD Lumbar Spine X-Ray 04/03/17 0000 Signed Impressions: Service Date/Time: Monday, April 03, 2017 09:39 - CONCLUSION: Anatomic alignment Asad Rajan MD FACR Medical Decision Making Impression and Plan Impression: Preoperative Diagnosis: (1) Lumbar canal stenosis 1. Severe L2-3 stenosis 2. Chronic myelopathy 3. Status post previous L3-5 fusion () s/p: 1. Bilateral L2-3 decompressive semi-laminectomy, medial facetectomy 2. Bilateral L1-L4 posterolateral fusion with autograft bone, cortical cancellus bone chips, BMP and stem cell matrix. 3. Bilateral L1-4 posterior lateral fusion with pedicle screw fixation, revision existing L3-4 instrumentation Plan: Neuro checks. TLSO brace when OOB. Mobilize patient w/assistance. Continue with PT/OT Rehab placement. Abram Smith Apr 09, 2017 9:48 am
[2017-04-09 12:21] VITALS: BP 91/60; PULSE 60; RESP 17; TEMP 98; O2SAT 96
[2017-04-09 16:00] VITALS: BP 112/38; PULSE 64; RESP 17; TEMP 98.7; O2SAT 97
[2017-04-09] MEDS: REMOVE OLD PATCH T-DERMAL SCH (16:00)
[2017-04-09] MEDS: fentaNYL 25 MCG/HR PATCH T-DERMAL SCH (16:36)
[2017-04-09 20:20] VITALS: BP 102/53; PULSE 70; RESP 17; TEMP 98.7; O2SAT 96
[2017-04-09] MEDS: EZETIMIBE 10 MG TAB PO SCH (21:01)
[2017-04-09] MEDS: MULTIVITAMINS/MINERALS THERAPEUTIC TAB PO SCH (21:01)
[2017-04-09] MEDS: GABAPENTIN 300 MG CAP PO SCH (21:02)
[2017-04-10 00:20] VITALS: BP 109/51; PULSE 67; RESP 17; TEMP 98; O2SAT 96
[2017-04-10] MEDS: oxyCODONE/ACETAMINOPHEN 10 MG/325 MG TAB PO PRN ×2 (02:35→10:17)
[2017-04-10 08:00] VITALS: BP 107/50; PULSE 59; RESP 18; TEMP 96.9; O2SAT 96
[2017-04-10] MEDS: 1/2 NS + KCL 20 MEQ INJ 1,000 ML IV SCH ×2 (08:00→17:45)
[2017-04-10] MEDS: INDIVIDUALIZED INSULIN NOVOLOG SUPPLEMENTAL SCALE SQ SCH ×4 (08:00→20:43)
[2017-04-10] MEDS: LISINOPRIL 20 MG TAB PO SCH (09:00)
[2017-04-10] MEDS: CARVEDILOL 6.25 MG TAB PO SCH ×2 (09:00→20:42)
[2017-04-10] MEDS: NIFEdipine 90 MG SUSTAINED RELEASE TAB PO SCH (09:00)
[2017-04-10] MEDS: DOCUSATE SODIUM 50 MG/SENNA 8.6 MG TAB PO SCH ×2 (09:00→20:42)
[2017-04-10] MEDS: metFORMIN HCL 500 MG TAB PO SCH ×2 (10:17→17:15)
[2017-04-10] MEDS: FERROUS SULFATE 325 MG (65 MG ELEMENTAL IRON) TAB PO SCH ×2 (10:17→20:42)
[2017-04-10] MEDS: TOLTERODINE TARTRATE 4 MG CAP LA PO SCH (10:18)
[2017-04-10] MEDS: FOLIC ACID 1 MG TAB PO SCH (10:18)
[2017-04-10] MEDS: LEVOTHYROXINE SODIUM 50 MCG TAB PO SCH (10:18)
[2017-04-10] MEDS: MAGNESIUM OXIDE 400 MG TAB PO SCH ×2 (10:18→20:42)
[2017-04-10] MEDS: GABAPENTIN 100 MG CAP PO SCH ×2 (10:21→14:26)
--- NOTE | 2017-04-10 10:41 | HHI.NSPN ---
(Isma Talbertashtyn DANGELO) History Chief Complaint: Back hurts some. (Isma Talbertashtyn DANGELO) Interval History 04/03: The patient presented to [facility] to undergo a bilateral L2-3 laminectomy with a bilateral L1 to L4 posterolateral fusion and screw fixation. Post-operatively the patient was admitted to a regular med/surg floor. 04/04: This morning when seen the patient is laying in bed with her friend visiting. She says she is not doing good and complains of back pain and some neck pain. When asked if she has a back brace at home she says she doesn't know where it is. 04/05: When seen this morning the patient is awake in bed. She states that she has numbness to all the extremities that continues to be same as yesterday. She states that it is worse than before she came into the hospital. She also continues to have back pain. She states she doesn't feel like eating. 04/07: The patient is awake in bed watching TV this afternoon. She states that she hurts to the back. There is no change in her numbness. This morning Nursing called and reported the following: That the patient had urinary retention during the night and when a Rojas was placed 600 mL of urine was obtained; The patient had not had a bowel movement since admission, a review of the medications in the EMR showed the patient had a paediatric Fleets order PRN for constipation and this was brought to the Nurse's attention; The dependent edema persisted, therefore furosemide 10 mg IV was ordered and given. The Fleets was not given due to the patient being in the cardiac chair at the time per Nursing. The patient was evaluated yesterday by Psychiatry due to a depressed affect. 04/08: Pt awake and alert. Complains of incisional pain. No radiculopathy into chest or abdomen. She complains of pain radiating into the posterior LEs and into the plantar aspect of the feet bilaterally. 04/09: Pt awake and alert. States pain controlled. No radiculopathy into chest or LEs today. She hasn't been out of bed yet this morning. She states she is "groggy". Pt states she had bm yesterday. 04/10: This morning the patient is awake and sitting up in the cardiac chair. The TLSO is in place. She does have some pain to the back but her biggest complaint is the numbness to the extremities which she says is the same. She says she also continues to be weak to the legs. (Jeff Talbert) Exam Results 04/08/17 04/08/17 04/09/17 04/09/17 04/10/17 04/10/17 06:00 18:00 06:00 18:00 06:00 18:00 Intake Total 480 ml 240 ml 600 ml 240 ml 360 ml Output Total 565 ml 1310 ml 350 ml 250 ml 250 ml Balance -565 ml -830 ml -110 ml 350 ml 240 ml 110 ml Intake Oral 480 ml 240 ml 600 ml 240 ml 360 ml Output Urine Total 550 ml 1300 ml 350 ml 250 ml 250 ml Drainage Total 15 ml 10 ml Bladder Scan Volume Amount 595 ml # Voids 75 0 # Bowel Movements 1 2 1 3 2 2 Vital Signs Date Time Temp Pulse Resp B/P (MAP) Pulse Ox O2 Delivery O2 Flow Rate FiO2 04/10/17 08:00 96.9 59 18 107/50 (69) 96 04/10/17 03:05 18 04/10/17 00:20 98.0 67 17 109/51 (70) 96 04/09/17 21:58 Room Air 04/09/17 20:20 98.7 70 17 102/53 (69) 96 04/09/17 16:00 98.7 64 17 112/38 (62) 97 04/09/17 12:21 98.0 60 17 91/60 (70) 96 04/09/17 07:12 97.6 62 17 112/48 (69) 97 04/09/17 00:07 98.6 71 17 116/85 (95) 96 04/08/17 20:16 97.6 65 17 100/51 (67) 96 04/08/17 15:17 98.8 72 17 106/49 (68) 97 04/08/17 12:07 96 04/08/17 11:48 99.8 77 17 135/60 (85) 96 04/08/17 08:25 Room Air 04/08/17 08:00 97.3 74 17 121/55 (77) 97 04/08/17 04:17 Room Air 04/08/17 04:00 97.4 66 18 120/39 (66) 96 04/08/17 00:00 98.1 68 18 95/43 (60) 94 04/07/17 20:00 99.0 70 18 117/47 (70) 96 04/07/17 16:00 97.8 65 18 107/51 (69) 96 04/07/17 12:00 97.9 66 18 104/56 (72) 97 04/07/17 10:37 Room Air (Jeff Talbert) Physical Examination GENERAL: Awake & alert, readily interacts, affect normal, no apparent distress. MUSCULOSKELETAL: Moves all extremities, lower weakly. No evident clubbing or deformity. Sitting up in cardiac chair w/TLSO brace in place. NEUROLOGICAL: AAOx3. Speech clear & appropriate. Follows simple commands w/o difficulty. Sensation continues to be diminished to light touch to all extremities. Motor strength 4 to 4+/5 to RUE; 4/5 LUE. Motor strength to the BLE: iliopsoas 3+/5, quadriceps 2/5, hamstrings 2+/5, anterior tibialis 3 to 3+/5, gastrocnemius 3+/5 & extensor hallucis longus 3/5. (Jeff Talbert) Lab, Micro, Other Results Laboratory Tests Test 04/08/17 04:06 White Blood Count 5.0 TH/MM3 Red Blood Count 3.03 MIL/MM3 Hemoglobin 8.7 GM/DL Hematocrit 25.6 % Mean Corpuscular Volume 84.4 FL Mean Corpuscular Hemoglobin 28.7 PG Mean Corpuscular Hemoglobin Concent 34.0 % Red Cell Distribution Width 14.9 % Platelet Count 258 TH/MM3 Mean Platelet Volume 8.7 FL Blood Urea Nitrogen 12 MG/DL Creatinine 0.66 MG/DL Random Glucose 137 MG/DL Calcium Level 8.4 MG/DL Sodium Level 140 MEQ/L Potassium Level 4.0 MEQ/L Chloride Level 104 MEQ/L Carbon Dioxide Level 28.6 MEQ/L Anion Gap 7 MEQ/L Estimat Glomerular Filtration Rate 86 ML/MIN (Jeff Talbert) Medical Decision Making Impression and Plan Impression: Preoperative Diagnosis: (1) Lumbar canal stenosis 1. Severe L2-3 stenosis 2. Chronic myelopathy 3. Status post previous L3-5 fusion The patient is doing good, pain well controlled, stable neurologically. PT & OT recommend inpatient rehab. POD #7 () s/p: 1. Bilateral L2-3 decompressive semi-laminectomy, medial facetectomy 2. Bilateral L1-L4 posterolateral fusion with autograft bone, cortical cancellus bone chips, BMP and stem cell matrix. 3. Bilateral L1-4 posterior lateral fusion with pedicle screw fixation, revision existing L3-4 instrumentation Postoperative Diagnosis: (1) Lumbar canal stenosis 1. Severe L2-3 stenosis 2. Chronic myelopathy 3. Status post previous L3-5 fusion Plan: Neuro checks. TLSO brace when OOB. Mobilise patient w/assistance. PT/OT eval & tx. Keep patient off her back. (Jeff Talbert) Attending Statement The exam, history, and the medical decision-making described in the above note were completed with the assistance of the mid-level provider. I reviewed and agree with the findings presented. I attest that I had a [id number] encounter with the patient on the same day, and personally performed and documented my assessment and findings in the medical record. On my examination 04/10/2017, the patient is smiling, relatively good spirits. Moderate low back pain. Strength is mostly 4/5 in the upper extremities, 2-3/5 lower extremities. Lower extremity strength generally seems improved a grade compared to preoperative. Reminded patient to stay off her back is much as possible. Continuing therapy Stable for discharge to inpatient rehabilitation. (Sav Eddy MD) Jeff Talbert Apr 10, 2017 10:41 Sav Eddy MD Apr 11, 2017 08:49
[2017-04-10 12:00] VITALS: BP 126/50; PULSE 61; RESP 18; TEMP 98.6; O2SAT 96
[2017-04-10 16:00] VITALS: BP 115/66; PULSE 67; RESP 18; TEMP 97.6; O2SAT 97
[2017-04-10 20:00] VITALS: BP 144/57; PULSE 76; RESP 17; TEMP 99.2; O2SAT 97
[2017-04-10] MEDS: MULTIVITAMINS/MINERALS THERAPEUTIC TAB PO SCH (20:42)
[2017-04-10] MEDS: GABAPENTIN 300 MG CAP PO SCH (20:42)
[2017-04-10] MEDS: EZETIMIBE 10 MG TAB PO SCH (20:43)
[2017-04-11] VITALS: BP 121/67; PULSE 95; RESP 17; TEMP 98.1; O2SAT 95
[2017-04-11] MEDS: 1/2 NS + KCL 20 MEQ INJ 1,000 ML IV SCH (02:25)
[2017-04-11 08:00] VITALS: BP 161/72; PULSE 66; RESP 17; TEMP 97.8; O2SAT 97
[2017-04-11] MEDS: INDIVIDUALIZED INSULIN NOVOLOG SUPPLEMENTAL SCALE SQ SCH (08:00)
--- NOTE | 2017-04-11 09:34 | HHI.NSPN ---
History Chief Complaint: Numbness Interval History 04/03: The patient presented to [facility] to undergo a bilateral L2-3 laminectomy with a bilateral L1 to L4 posterolateral fusion and screw fixation. Post-operatively the patient was admitted to a regular med/surg floor. 04/04: This morning when seen the patient is laying in bed with her friend visiting. She says she is not doing good and complains of back pain and some neck pain. When asked if she has a back brace at home she says she doesn't know where it is. 04/05: When seen this morning the patient is awake in bed. She states that she has numbness to all the extremities that continues to be same as yesterday. She states that it is worse than before she came into the hospital. She also continues to have back pain. She states she doesn't feel like eating. 04/07: The patient is awake in bed watching TV this afternoon. She states that she hurts to the back. There is no change in her numbness. This morning Nursing called and reported the following: That the patient had urinary retention during the night and when a Rojas was placed 600 mL of urine was obtained; The patient had not had a bowel movement since admission, a review of the medications in the EMR showed the patient had a paediatric Fleets order PRN for constipation and this was brought to the Nurse's attention; The dependent edema persisted, therefore furosemide 10 mg IV was ordered and given. The Fleets was not given due to the patient being in the cardiac chair at the time per Nursing. The patient was evaluated yesterday by Psychiatry due to a depressed affect. 04/08: Pt awake and alert. Complains of incisional pain. No radiculopathy into chest or abdomen. She complains of pain radiating into the posterior LEs and into the plantar aspect of the feet bilaterally. 04/09: Pt awake and alert. States pain controlled. No radiculopathy into chest or LEs today. She hasn't been out of bed yet this morning. She states she is "groggy". Pt states she had bm yesterday. 04/10: This morning the patient is awake and sitting up in the cardiac chair. The TLSO is in place. She does have some pain to the back but her biggest complaint is the numbness to the extremities which she says is the same. She says she also continues to be weak to the legs. 04/11: The patient is awake and alert this morning in bed and had just finished breakfast. She says she is doing good but has numbness still to the extremities. Exam Results 04/09/17 04/09/17 04/10/17 04/10/17 04/11/17 04/11/17 06:00 18:00 06:00 18:00 06:00 18:00 Intake Total 240 ml 600 ml 240 ml 960 ml 840 ml Output Total 350 ml 250 ml 550 ml 550 ml Balance -110 ml 350 ml 240 ml 410 ml 290 ml Intake Oral 240 ml 600 ml 240 ml 960 ml 840 ml Output Urine Total 350 ml 250 ml 550 ml 550 ml # Voids 75 0 # Bowel Movements 1 3 2 2 Vital Signs Date Time Temp Pulse Resp B/P (MAP) Pulse Ox O2 Delivery O2 Flow Rate FiO2 04/11/17 08:00 97.8 66 17 161/72 (101) 97 04/11/17 00:00 98.1 95 17 121/67 (85) 95 04/10/17 20:00 99.2 76 17 144/57 (86) 97 04/10/17 16:00 97.6 67 18 115/66 (82) 97 04/10/17 12:00 98.6 61 18 126/50 (75) 96 04/10/17 11:17 18 04/10/17 08:00 96.9 59 18 107/50 (69) 96 04/10/17 00:20 98.0 67 17 109/51 (70) 96 04/09/17 21:58 Room Air 04/09/17 20:20 98.7 70 17 102/53 (69) 96 04/09/17 16:00 98.7 64 17 112/38 (62) 97 04/09/17 12:21 98.0 60 17 91/60 (70) 96 04/09/17 07:12 97.6 62 17 112/48 (69) 97 04/09/17 00:07 98.6 71 17 116/85 (95) 96 04/08/17 20:16 97.6 65 17 100/51 (67) 96 04/08/17 15:17 98.8 72 17 106/49 (68) 97 04/08/17 12:07 96 04/08/17 11:48 99.8 77 17 135/60 (85) 96 Physical Examination GENERAL: Awake & alert, readily interacts, affect normal, no apparent distress. MUSCULOSKELETAL: Moves all extremities, lower weakly. No evident clubbing or deformity. NEUROLOGICAL: AAOx3. Speech clear & appropriate. Follows simple commands w/o difficulty. Sensation continues to be diminished to light touch to all extremities. Motor strength 4 to 4+/5 to RUE; 4/5 LUE. Motor strength to the BLE: iliopsoas 3+/5, quadriceps 2/5, hamstrings 2+/5, anterior tibialis 3 to 3+/5, gastrocnemius 3+/5 & extensor hallucis longus 3/5. Medical Decision Making Impression and Plan Impression: Preoperative Diagnosis: (1) Lumbar canal stenosis 1. Severe L2-3 stenosis 2. Chronic myelopathy 3. Status post previous L3-5 fusion The patient continues to do well and her pain is controlled, stable neurologically. PT & OT recommend inpatient rehab. POD #8 () s/p: 1. Bilateral L2-3 decompressive semi-laminectomy, medial facetectomy 2. Bilateral L1-L4 posterolateral fusion with autograft bone, cortical cancellus bone chips, BMP and stem cell matrix. 3. Bilateral L1-4 posterior lateral fusion with pedicle screw fixation, revision existing L3-4 instrumentation Postoperative Diagnosis: (1) Lumbar canal stenosis 1. Severe L2-3 stenosis 2. Chronic myelopathy 3. Status post previous L3-5 fusion Plan: Neuro checks. TLSO brace when OOB. Mobilise patient w/assistance. PT/OT eval & tx. Keep patient off her back. 2 wk post-op check . Patient may be discharged to inpatient rehab from NSGY's perspective. Waiting for insurance approval. Jeff Talbert Apr 11, 2017 09:34
[2017-04-11] MEDS: LEVOTHYROXINE SODIUM 50 MCG TAB PO SCH (09:41)
[2017-04-11] MEDS: CARVEDILOL 6.25 MG TAB PO SCH (09:41)
[2017-04-11] MEDS: FOLIC ACID 1 MG TAB PO SCH (09:41)
[2017-04-11] MEDS: TOLTERODINE TARTRATE 4 MG CAP LA PO SCH (09:41)
[2017-04-11] MEDS: MAGNESIUM OXIDE 400 MG TAB PO SCH (09:42)
[2017-04-11] MEDS: DOCUSATE SODIUM 50 MG/SENNA 8.6 MG TAB PO SCH (09:42)
[2017-04-11] MEDS: metFORMIN HCL 500 MG TAB PO SCH (09:42)
[2017-04-11] MEDS: FERROUS SULFATE 325 MG (65 MG ELEMENTAL IRON) TAB PO SCH (09:42)
[2017-04-11] MEDS: LISINOPRIL 20 MG TAB PO SCH (09:42)
[2017-04-11] MEDS: NIFEdipine 90 MG SUSTAINED RELEASE TAB PO SCH (09:43)
[2017-04-11] MEDS: GABAPENTIN 100 MG CAP PO SCH (09:46)
[2017-04-11] MEDS ORDERED: FENT25T T-DERMAL ×2 (11:54→11:57)
[2017-04-11] MEDS ORDERED: PERC10TA27 PO (11:56)
[2017-04-11 12:00] VITALS: BP 151/73; PULSE 67; RESP 18; TEMP 99; O2SAT 97
--- NOTE | 2017-04-11 12:51 | HHI.DCPOC ---
Discharge Care Plan Diagnosis: (1) Status post lumbar laminectomy (2) Lumbar canal stenosis Your Health Problems Are: Incision/Drains Goals to Promote Your Health * To prevent worsening of your condition and complications * To maintain your health at the optimal level Wear the TLSO brace when out of bed. No lifting, bending, pushing, pulling or other strenuous activity. Leave the dressing on over the surgical incisions for 1 week. After that you may take the outer dressing off but leave the steri-strips on and let them fall off on their own. No showering until the surgical incision is totally healed. Take the pain medication as prescribed. Avoid taking any medication that contains aspirin or NSAIDs (ibuprofen, naproxen , Motrin, Advil, Naprosyn) for at least a month. Follow up in the office as scheduled for a wound check as previously scheduled. Directions to Meet Your Goals Take your medications as prescribed Follow your dietary instruction Follow activity as directed Wear the TLSO brace when out of bed. No lifting, bending, pushing, pulling or other strenuous activity. Leave the dressing on over the surgical incisions for 1 week. After that you may take the outer dressing off but leave the steri-strips on and let them fall off on their own. No showering until the surgical incision is totally healed. Take the pain medication as prescribed. Avoid taking any medication that contains aspirin or NSAIDs (ibuprofen, naproxen , Motrin, Advil, Naprosyn) for at least a month. Follow up in the office as scheduled for a wound check as previously scheduled. Keep your appointments as scheduled Take your immunizations and boosters as scheduled If your symptoms worsen call your PCP, if no PCP go to Urgent Care Center or Emergency Room Smoking is Dangerous to Your Health. Avoid second hand smoke Call the 24-hour hour crisis hotline for domestic abuse at Jeff Talbert Apr 11, 2017 12:51
--- NOTE | 2017-04-11 12:54 | HHI.DS ---
Discharge Summary Admission Date Apr 03, 2017 at 06:09 Discharge Date: Apr 11, 2017 Admitting Diagnosis (1) Lumbar canal stenosis Diagnosis: Principal ICD Code: M48.06 - Spinal stenosis, lumbar region (2) Status post lumbar laminectomy Diagnosis: Secondary ICD Code: Z98.890 - Other specified postprocedural states CBC/BMP: 04/08/1740504/08/17405 Hospital Course 04/03: The patient presented to [facility] to undergo a bilateral L2-3 laminectomy with a bilateral L1 to L4 posterolateral fusion and screw fixation. Post-operatively the patient was admitted to a regular med/surg floor. 04/04: This morning when seen the patient is laying in bed with her friend visiting. She says she is not doing good and complains of back pain and some neck pain. When asked if she has a back brace at home she says she doesn't know where it is. 04/05: When seen this morning the patient is awake in bed. She states that she has numbness to all the extremities that continues to be same as yesterday. She states that it is worse than before she came into the hospital. She also continues to have back pain. She states she doesn't feel like eating. 04/07: The patient is awake in bed watching TV this afternoon. She states that she hurts to the back. There is no change in her numbness. This morning Nursing called and reported the following: That the patient had urinary retention during the night and when a Rojas was placed 600 mL of urine was obtained; The patient had not had a bowel movement since admission, a review of the medications in the EMR showed the patient had a paediatric Fleets order PRN for constipation and this was brought to the Nurse's attention; The dependent edema persisted, therefore furosemide 10 mg IV was ordered and given. The Fleets was not given due to the patient being in the cardiac chair at the time per Nursing. The patient was evaluated yesterday by Psychiatry due to a depressed affect. 04/08: Pt awake and alert. Complains of incisional pain. No radiculopathy into chest or abdomen. She complains of pain radiating into the posterior LEs and into the plantar aspect of the feet bilaterally. 04/09: Pt awake and alert. States pain controlled. No radiculopathy into chest or LEs today. She hasn't been out of bed yet this morning. She states she is "groggy". Pt states she had bm yesterday. 04/10: This morning the patient is awake and sitting up in the cardiac chair. The TLSO is in place. She does have some pain to the back but her biggest complaint is the numbness to the extremities which she says is the same. She says she also continues to be weak to the legs. 04/11: The patient is awake and alert this morning in bed and had just finished breakfast. She says she is doing good but has numbness still to the extremities. She continues to have a Rojas in place due to urinary retention. Pt Condition on Discharge: Good Discharge Disposition: Discharge to SNF Discharge Instructions DIET: Follow Instructions for: Diabetic Diet ACTIVITIES You can perform: Weight Bearing As Ashleigh Activities to Avoid: Lifting/Bending, Prolonged Standing, Strenuous Activity, Bathing, Driving ADDITIONAL Activity Instructio: Wear the TLSO brace when out of bed. No lifting, bending, pushing, pulling or other strenuous activity. No showering until the surgical incision is totally healed. Additional Information Leave the dressing on over the surgical incisions for 1 week. After that you may take the outer dressing off but leave the steri-strips on and let them fall off on their own. No showering until the surgical incision is totally healed. Take the pain medication as prescribed. Avoid taking any medication that contains aspirin or NSAIDs (ibuprofen, naproxen , Motrin, Advil, Naprosyn) for at least a month. Follow up in the office as scheduled for a wound check as previously scheduled. Jeff Talbert Apr 11, 2017 12:54
== END 2017-04-11 15:09 | DRG 460 ==
LOC: HSDI 06:09 → N06A 17:41
PROVIDERS: ADMIT Neurological Surgery; ATTEND Neurological Surgery
PROC: 01NB0ZZ Release Lumbar Nerve, Open Approach (ICD-10-PCS; 2017-04-03)
PROC: 0QP004Z Removal of Internal Fixation Device from Lumbar Vertebra, Open Approach (ICD-10-PCS; 2017-04-03)
PROC: 30233N1 Transfusion of Nonautologous Red Blood Cells into Peripheral Vein, Percutaneous Approach (ICD-10-PCS; 2017-04-03)
PROC: 0SG1071 Fusion of 2 or more Lumbar Vertebral Joints with Autologous Tissue Substitute, Posterior Approach, Posterior Column, Open Approach (ICD-10-PCS; principal; 2017-04-03 08:30)
PROC: 0T9B70Z Drainage of Bladder with Drainage Device, Via Natural or Artificial Opening (ICD-10-PCS; 2017-04-07)
DX: M48.061 Spinal stenosis, lumbar region without neurogenic claudication (principal); D64.9 Anemia, unspecified; E11.9 Type 2 diabetes mellitus without complications; G95.9 Disease of spinal cord, unspecified; I10 Essential (primary) hypertension; E03.9 Hypothyroidism, unspecified; E78.5 Hyperlipidemia, unspecified; Z95.1 Presence of aortocoronary bypass graft; F54 Psychological and behavioral factors associated with disorders or diseases classified elsewhere; M54.16 Radiculopathy, lumbar region; M43.26 Fusion of spine, lumbar region; I25.10 Atherosclerotic heart disease of native coronary artery without angina pectoris; R33.9 Retention of urine, unspecified; K59.00 Constipation, unspecified; Z98.1 Arthrodesis status; Z87.891 Personal history of nicotine dependence
CPT/HCPCS: 36430; 72020; 72146; 72148; 76000; 80048; 82948; 85014; 85018; 85025; 85027; 86850; 86900; 86901; 86920; 94150; C1713; C9290; J0360; J1100; J1580; J1815; J1940; J2310; J2405; J3010; J7030; J7050; J7120; L0200; L0484; P9016